=== PATIENT | male | born 1955 | race Caucasian/White ===

== ENCOUNTER 2017-03-20 08:37 | Inpatient (IN) | payer BC ==
[~2017-03-20] VITALS: Ht 177.8 cm; Wt 122.6 kg
[~2017-03-20 08:37] MED LIST: NOR10T PO
[2017-03-20] MEDS ORDERED: SODIUM CHLORIDE 0.9% 1,000 ML IVB ONE (09:09)
[2017-03-20] MEDS ORDERED: ONDANSETRON HCL 4 MG/2 ML VIAL IV ONE (09:15)
[2017-03-20] MEDS ORDERED: HYDROmorphone HCL 2 MG/ML VL IV ONE (09:15)
[2017-03-20 09:32] LABS: Basophils # (auto) 0.1 uL; Basophils % (auto) 0.4 % (0.0-2.0); Eosinophils # (auto) 0.2 uL; Eosinophils % (auto) 1.3 % (0.0-7.0); Hemoglobin 15.5 g/dL (13.5-17.5); Lymphocytes # (auto) 3.5 uL; Lymphocytes % (auto) 19.6 % (10.0-50.0); Mean Corpuscular Hemoglobin 30.8 pg (28.0-32.0); Mean Corpuscular Hgb Conc. 33.6 g/dL (32.0-36.0); Mean Corpuscular Volume 91.7 fL (80.0-100.0); Mean Platelet Volume 8.3 fL (7.4-10.4); Monocytes # (auto) 0.9 uL; Monocytes % (auto) 5.3 % (0.0-12.0); Neutrophils # (auto) 13.1 uL; Neutrophils % (auto) 73.4 % (37.0-80.0); Platelet Count (auto) 246 10^3/uL (140-450); Red Cell Distribution Width 12.5 % (11.6-16.0); White Blood Cell 17.8 10^3/uL (4.4-10.8)
[2017-03-20 09:54] LABS: Albumin 3.7 g/dL (3.4-5.0); BUN/Creatinine Ratio 15.8; Calcium 9.4 mg/dL (8.5-10.1)
[2017-03-20 09:56] LABS: Bilirubin, Total 0.6 mg/dL (0.2-1.0)
[2017-03-20 09:57] LABS: Total Protein 7.9 g/dL (6.4-8.2)
[2017-03-20] MEDS ORDERED: HYDROcodone-ACET 5/325MG TAB PO PRN (10:30)
[2017-03-20] MEDS ORDERED: ACETAMINOPHEN 500 MG TAB PO PRN (10:30)
[2017-03-20] MEDS ORDERED: TEMAZEPAM 15 MG CAP PO PRN (10:30)
[2017-03-20] MEDS ORDERED: MORPHINE SULF INJ 2 MG/ML SYRINGE 1ML IV PRN ×2 (10:30)
[2017-03-20] MEDS ORDERED: cefTRIAXone 1GM/50ML D5W 50 ML IV ONE (10:30)
[2017-03-20] MEDS ORDERED: DEXTROSE (50%) 50ML SYRG IV PRN (10:30)
[2017-03-20] MEDS ORDERED: PROCHLORPERAZINE EDISYLATE 5 MG/ML 2ML VIAL IV PRN (10:30)
[2017-03-20] MEDS ORDERED: NITROGLYCERIN 0.4 MG SL TAB SL PRN (10:30)
[2017-03-20] MEDS ORDERED: LORazepam 0.5 MG TAB PO PRN (10:30)
[2017-03-20 10:34] LABS: Urine Bilirubin Negative (Negative); Urine Color Red (Yellow); Urine Ketone Negative (Negative); Urine Nitrite Negative (Negative); Urine RBC 7599 /hpf (0 - 3); Urine Urobilinogen Normal (Negative); Urine pH 7.5 (5.0-8.0)
[2017-03-20 10:42] LABS: Urine Blood 3+ /uL (Negative); Urine Glucose 4+ mg/dL (Normal)
[2017-03-20] MEDS: SODIUM CHLORIDE 0.9% 1,000 ML IV SCH ×2 (11:36→18:20)
[2017-03-20] MEDS: FAMOTIDINE (10MG/ML) 2ML VL IV SCH ×2 (11:36→22:15)
[2017-03-20] MEDS: ACCU-CHEK COMFORT CURVE STRIP VI SCH ×3 (11:38→21:36)
[2017-03-20] MEDS: InsuLIN REG 1unit/0.01ml Soln (100units/ml) SC SCH ×3 (12:05→21:36)
[2017-03-20 13:19] LABS: Hematocrit 42.1 % (41.0-53.0); Hemoglobin 14.6 g/dL (13.5-17.5)
[2017-03-20] MEDS ORDERED: METF-312 PO (15:26)
[2017-03-20] MEDS: HYDROmorphone HCL 2 MG/ML VL IV PRN ×2 (15:45→20:34)
[2017-03-20 17:20] VITALS: BP 130/73
[2017-03-20 18:43] LABS: Hematocrit 42.8 % (41.0-53.0); Hemoglobin 14.3 g/dL (13.5-17.5)
[2017-03-20 21:30] VITALS: BP 124/73
[2017-03-21] MEDS: HYDROmorphone HCL 2 MG/ML VL IV PRN ×6 (00:23→21:07)
[2017-03-21 00:57] LABS: Hematocrit 42.7 % (41.0-53.0); Hemoglobin 14.2 g/dL (13.5-17.5)
[2017-03-21] MEDS: SODIUM CHLORIDE 0.9% 1,000 ML IV SCH ×3 (04:24→18:34)
[2017-03-21 05:00] VITALS: BP 149/94
[2017-03-21 06:06] LABS: Basophils # (auto) 0 uL; Basophils % (auto) 0.2 % (0.0-2.0); Eosinophils # (auto) 0.3 uL; Eosinophils % (auto) 1.6 % (0.0-7.0); Hematocrit 41.9 % (41.0-53.0); Hemoglobin 14.3 g/dL (13.5-17.5); Lymphocytes # (auto) 3.2 uL; Lymphocytes % (auto) 18.5 % (10.0-50.0); Mean Corpuscular Hemoglobin 31.3 pg (28.0-32.0); Mean Platelet Volume 8.6 fL (7.4-10.4); Monocytes % (auto) 6.1 % (0.0-12.0); Neutrophils # (auto) 12.6 uL; Neutrophils % (auto) 73.6 % (37.0-80.0); Platelet Count (auto) 224 10^3/uL (140-450); Red Cell Distribution Width 12.8 % (11.6-16.0); White Blood Cell 17.1 10^3/uL (4.4-10.8)
[2017-03-21 06:26] LABS: Calcium 8.6 mg/dL (8.5-10.1); Potassium 3.7 mmol/L (3.5-5.1)
[2017-03-21 06:40] LABS: BUN/Creatinine Ratio 17.1
[2017-03-21 06:42] LABS: Bilirubin, Total 0.8 mg/dL (0.2-1.0); Total Protein 6.9 g/dL (6.4-8.2)
[2017-03-21] MEDS: InsuLIN REG 1unit/0.01ml Soln (100units/ml) SC SCH ×4 (06:50→21:24)
[2017-03-21] MEDS: ACCU-CHEK COMFORT CURVE STRIP VI SCH ×4 (06:50→21:24)
[2017-03-21 08:00] VITALS: BP 132/87
[2017-03-21 09:00] VITALS: BP 132/87
[2017-03-21] MEDS: cefTRIAXone 1GM/50ML D5W 50 ML IV SCH (09:11)
[2017-03-21] MEDS: FAMOTIDINE (10MG/ML) 2ML VL IV SCH (09:11)
[2017-03-21 13:00] VITALS: BP 138/89
[2017-03-21 17:00] VITALS: BP 135/82
[2017-03-21] MEDS ORDERED: TAMSULOSIN HYDROCHLORIDE 0.4 MG CAP PO SCH (18:00)
[2017-03-21 22:00] VITALS: BP 133/76
[2017-03-22] MEDS: HYDROmorphone HCL 2 MG/ML VL IV PRN ×2 (01:06→05:24)
[2017-03-22] MEDS ORDERED: INSLANTI SC (03:21)
[2017-03-22] MEDS: SODIUM CHLORIDE 0.9% 1,000 ML IV SCH (04:46)
[2017-03-22 05:00] VITALS: BP 125/79
[2017-03-22] MEDS: ACCU-CHEK COMFORT CURVE STRIP VI SCH (05:53)
[2017-03-22] MEDS: InsuLIN REG 1unit/0.01ml Soln (100units/ml) SC SCH (05:54)
[2017-03-22 06:40] LABS: Basophils # (auto) 0.1 uL; Basophils % (auto) 0.4 % (0.0-2.0); Eosinophils # (auto) 0.4 uL; Hematocrit 39.5 % (41.0-53.0); Hemoglobin 13.4 g/dL (13.5-17.5); Lymphocytes # (auto) 3.1 uL; Lymphocytes % (auto) 21.1 % (10.0-50.0); Mean Corpuscular Hemoglobin 31.2 pg (28.0-32.0); Mean Corpuscular Volume 91.7 fL (80.0-100.0); Mean Platelet Volume 8.4 fL (7.4-10.4); Monocytes % (auto) 6.9 % (0.0-12.0); Neutrophils # (auto) 10.1 uL; Neutrophils % (auto) 68.6 % (37.0-80.0); Platelet Count (auto) 213 10^3/uL (140-450); Red Cell Distribution Width 12.3 % (11.6-16.0); White Blood Cell 14.8 10^3/uL (4.4-10.8)
[2017-03-22 06:59] LABS: BUN/Creatinine Ratio 15.9; Calcium 7.8 mg/dL (8.5-10.1); Potassium 3.6 mmol/L (3.5-5.1)
[2017-03-22 08:00] VITALS: BP 139/101
[2017-03-22] MEDS ORDERED: TAM04C PO (08:03)
[2017-03-22] MEDS ORDERED: MAGNESIUM CITRATE SOLUTION 300 ML BTL PO ONE (08:15)
[2017-03-22 09:00] VITALS: BP 139/101
[2017-03-22] MEDS: cefTRIAXone 1GM/50ML D5W 50 ML IV SCH (09:00)
[2017-03-22] MEDS ORDERED: HYDROcodone-ACET 10/325MG TAB PO PRN (09:30)
[2017-03-22] MEDS ORDERED: CIPR-173 PO (10:40)
[2017-03-22 11:41] VITALS: BP 139/101
== END 2017-03-22 12:40 | disposition home or self-care (01) | DRG 690 ==
LOC: ER 08:40 → TELE 08:41 → TELE-E-ADS 15:02 → TELE-WESTW 17:16 → WEST WING 03-21 15:12
PROVIDERS: ADMIT Internal Medicine; ATTEND Internal Medicine
DX: N30.91 Cystitis, unspecified with hematuria (principal); M48.56XA Collapsed vertebra, not elsewhere classified, lumbar region, initial encounter for fracture; N20.0 Calculus of kidney; E11.9 Type 2 diabetes mellitus without complications; I10 Essential (primary) hypertension; G47.30 Sleep apnea, unspecified; E66.9 Obesity, unspecified; B96.20 Unspecified Escherichia coli [E. coli] as the cause of diseases classified elsewhere; E66.01 Morbid (severe) obesity due to excess calories; K76.0 Fatty (change of) liver, not elsewhere classified; M51.37 Other intervertebral disc degeneration, lumbosacral region; Z83.3 Family history of diabetes mellitus; Z86.73 Personal history of transient ischemic attack (TIA), and cerebral infarction without residual deficits; Z90.49 Acquired absence of other specified parts of digestive tract; Z68.38 Body mass index [BMI] 38.0-38.9, adult
CPT/HCPCS: 36415; 51702; 71020; 74176; 76775; 80048; 80053; 81001; 82360; 82962; 83036; 85014; 85018; 85025; 87040; 87086; 87088; 87186; 94761; 96361; 96365; 96375; J0696; J1815; J2405; J3490

== ENCOUNTER → 2017-08-05 | Outpatient (CLI) | payer BC ==
[~2017-08-05] MED LIST changes: +CIPR-173 PO; +INSLANTI SC; +METF-370 PO; +TAM04C PO
[2017-08-05 11:44] LABS: Basophils # (auto) 0 uL; Basophils % (auto) 0.3 % (0.0-2.0); CONDITION Y; Eosinophils # (auto) 0.3 uL; Eosinophils % (auto) 2.3 % (0.0-7.0); Hematocrit 47.8 % (41.0-53.0); Hemoglobin 16.2 g/dL (13.5-17.5); Lymphocytes # (auto) 3.4 uL; Lymphocytes % (auto) 22.7 % (10.0-50.0); Mean Corpuscular Hemoglobin 31.1 pg (28.0-32.0); Mean Corpuscular Hgb Conc. 33.9 g/dL (32.0-36.0); Mean Corpuscular Volume 91.8 fL (80.0-100.0); Mean Platelet Volume 8.2 fL (7.4-10.4); Monocytes % (auto) 6.4 % (0.0-12.0); Neutrophils # (auto) 10.2 uL; Neutrophils % (auto) 68.3 % (37.0-80.0); Platelet Count (auto) 269 10^3/uL (140-450); Red Cell Distribution Width 13.3 % (11.6-16.0); White Blood Cell 14.9 10^3/uL (4.4-10.8)
[2017-08-05 12:03] LABS: Albumin 3.7 g/dL (3.4-5.0); BUN/Creatinine Ratio 19.5; Bilirubin, Total 0.7 mg/dL (0.2-1.0); Calcium 9.4 mg/dL (8.5-10.1); Potassium 3.6 mmol/L (3.5-5.1); Total Protein 8.5 g/dL (6.4-8.2)
[2017-08-05 12:25] LABS: Urine Bilirubin Negative (Negative); Urine Blood Negative /uL (Negative); Urine Color Yellow (Yellow); Urine Glucose 4+ mg/dL (Normal); Urine Ketone Negative (Negative); Urine Mucus FEW (None Seen); Urine Nitrite Negative (Negative); Urine RBC 2 /hpf (0 - 3); Urine Squamous Epithelial Cell FEW /hpf (<5); Urine Urobilinogen Normal (Negative); Urine pH 5.5 (5.0-8.0)
== END | disposition home or self-care (01) ==
LOC: LAB 11:15
PROVIDERS: ATTEND Internal Medicine
DX: I10 Essential (primary) hypertension (principal); E55.9 Vitamin D deficiency, unspecified; E11.9 Type 2 diabetes mellitus without complications; E03.9 Hypothyroidism, unspecified; E78.2 Mixed hyperlipidemia
CPT/HCPCS: 36415; 80053; 80061; 81001; 82043; 82306; 83036; 84443; 85025

== ENCOUNTER → 2017-11-06 | Outpatient (CLI) | payer BC | END | disposition home or self-care (01) | LOC: XY 07:39 | PROVIDERS: ATTEND Internal Medicine Cardiovascular Disease | DX: R07.9 Chest pain, unspecified (principal) | CPT/HCPCS: 78452; 93017; A9500 ==

== ENCOUNTER 2017-12-31 15:40 | Emergency (ER) | payer BC ==
[~2017-12-31] VITALS: Ht 177.8 cm; Wt 127.0 kg
[2017-12-31 16:22] LABS: Basophils # (auto) 0.1 uL; Basophils % (auto) 0.5 % (0.0-2.0); Eosinophils # (auto) 0.1 uL; Eosinophils % (auto) 1.3 % (0.0-7.0); Hemoglobin 16.6 g/dL (13.5-17.5); Lymphocytes # (auto) 2.2 uL; Lymphocytes % (auto) 19.1 % (10.0-50.0); Mean Corpuscular Hemoglobin 30.3 pg (28.0-32.0); Mean Corpuscular Hgb Conc. 33.1 g/dL (32.0-36.0); Mean Corpuscular Volume 91.4 fL (80.0-100.0); Monocytes # (auto) 0.7 uL; Monocytes % (auto) 5.9 % (0.0-12.0); Neutrophils # (auto) 8.5 uL; Neutrophils % (auto) 73.2 % (37.0-80.0); Nucleated Red Blood Cells % 0.1 %; Platelet Count (auto) 234 10^3/uL (140-450); Red Blood Cells 5.47 10^6/uL (4.5-5.90); Red Cell Distribution Width 13.6 % (11.8-14.3); White Blood Cell 11.6 10^3/uL (4.4-10.8)
[2017-12-31 16:34] LABS: Alanine Aminotransferase 48 U/L (16-61); Albumin 3.8 g/dL (3.4-5.0); Amylase 66 U/L (25-115); Anion Gap 12 (5-15); Aspartate Aminotransferase 33 U/L (15-37); BUN/Creatinine Ratio 18.3; Blood Urea Nitrogen 17 mg/dL (7-18); Calcium 9.5 mg/dL (8.5-10.1); Carbon Dioxide 23 mmol/L (21-32); Chloride 105 mmol/L (98-107); GFR African American 106 mL/min; GFR Non-African American 88 mL/min; Glucose 103 mg/dL (74-106); Lipase 233 U/L (73-393); Magnesium 2.4 mg/dL (1.6-2.6); Potassium 4.1 mmol/L (3.5-5.1); Sodium 140 mmol/L (136-145)
[2017-12-31 16:39] LABS: Alkaline Phosphatase 79 U/L (45-117); Bilirubin, Total 0.8 mg/dL (0.2-1.0); Total Protein 9.1 g/dL (6.4-8.2)
[2017-12-31] MEDS ORDERED: MAGNESIUM CITRATE SOLUTION 300 ML BTL PO ONE (19:30)
[2017-12-31] MEDS ORDERED: LACTULOSE 20Gm/30ML SOLN PO ONE (19:30)
[2017-12-31] MEDS ORDERED: SODIUM CHLORIDE 0.9% 1,000 ML IV ONE (19:30)
[2018-01-01 04:35] VITALS: BP 136/70
== END 2018-01-01 02:37 | disposition home or self-care (01) ==
LOC: ER 15:48
DX: K59.00 Constipation, unspecified (principal); E11.9 Type 2 diabetes mellitus without complications; I10 Essential (primary) hypertension; Z87.442 Personal history of urinary calculi; Z86.73 Personal history of transient ischemic attack (TIA), and cerebral infarction without residual deficits
CPT/HCPCS: 36415; 74176; 80053; 82150; 83690; 83735; 84484; 85025; 93005; 96360; 96361; 99285; J7030

== ENCOUNTER 2018-03-10 17:25 | Inpatient (IN) | payer BC ==
[~2018-03-10] VITALS: Ht 177.8 cm; Wt 135.0 kg
[2018-03-10] MEDS ORDERED: SODIUM CHLORIDE 0.9% 1,000 ML IVB ONE (18:06)
[2018-03-10] MEDS ORDERED: KETOROLAC TROMETH 30 MG/ML 1ML VIAL IV ONE (18:15)
[2018-03-10] MEDS ORDERED: MORPHINE SULFATE 4 MG/ML SYR/VIAL IV ONE (18:15)
[2018-03-10] MEDS ORDERED: ONDANSETRON HCL 4 MG/2 ML VIAL IV ONE (18:15)
[2018-03-10 19:20] LABS: Basophils # (auto) 0 uL; Basophils % (auto) 0.3 % (0.0-2.0); Eosinophils # (auto) 0.1 uL; Eosinophils % (auto) 0.5 % (0.0-7.0); Hematocrit 49.2 % (41.0-53.0); Hemoglobin 16.5 g/dL (13.5-17.5); Lymphocytes # (auto) 1.5 uL; Lymphocytes % (auto) 9.6 % (10.0-50.0); Mean Corpuscular Hemoglobin 30.2 pg (28.0-32.0); Mean Corpuscular Hgb Conc. 33.5 g/dL (32.0-36.0); Mean Corpuscular Volume 90.1 fL (80.0-100.0); Monocytes # (auto) 0.8 uL; Neutrophils % (auto) 84.6 % (37.0-80.0); Platelet Count (auto) 234 10^3/uL (140-450); Red Blood Cells 5.46 10^6/uL (4.5-5.90); Red Cell Distribution Width 13.3 % (11.8-14.3); White Blood Cell 15.4 10^3/uL (4.4-10.8)
[2018-03-10 19:34] LABS: Albumin 3.9 g/dL (3.4-5.0); BUN/Creatinine Ratio 16.1; Bilirubin, Total 0.8 mg/dL (0.2-1.0); Calcium 9.4 mg/dL (8.5-10.1); Potassium 3.7 mmol/L (3.5-5.1); Total Protein 9.3 g/dL (6.4-8.2)
[2018-03-10 21:28] LABS: Urine Bacteria MANY /hpf (None Seen); Urine Blood 2+ /uL (Negative); Urine Mucus FEW (None Seen); Urine Specific Gravity 1.031 (1.001-1.035); Urine WBC 57 /hpf (0 - 3)
[2018-03-10] MEDS ORDERED: MORPHINE SULFATE 4 MG/ML SYR/VIAL IV PRN (22:00)
[2018-03-10] MEDS ORDERED: HYDROcodone-ACET 5/325MG TAB PO PRN (22:00)
[2018-03-10] MEDS ORDERED: ACETAMINOPHEN 500 MG TAB PO PRN (22:00)
[2018-03-10] MEDS: cefTRIAXone 1GM/10ml IVPUSH 10 ML IV SCH (22:28)
[2018-03-10] MEDS ORDERED: HYDROcodone-ACET 10/325MG TAB PO ONE (23:30)
[2018-03-11] MEDS ORDERED: MEPERIDINE HCL (25 MG/ML) 1ML VIAL IV ONE (01:15)
[2018-03-11] MEDS ORDERED: DEXTROSE (50%) 50ML SYRG IV PRN (01:45)
[2018-03-11] MEDS ORDERED: ZOLPIDEM TARTRATE 5 MG TAB PO PRN (02:00)
[2018-03-11] MEDS ORDERED: LABETALOL HCL 5 MG/ML ML 20ML VIAL IV ONE ×2 (02:54→03:00)
[2018-03-11 04:16] LABS: Basophils # (auto) 0.1 uL; Basophils % (auto) 0.5 % (0.0-2.0); Eosinophils # (auto) 0.1 uL; Eosinophils % (auto) 0.8 % (0.0-7.0); Hemoglobin 15.8 g/dL (13.5-17.5); Lymphocytes # (auto) 3.2 uL; Lymphocytes % (auto) 18.5 % (10.0-50.0); Mean Corpuscular Hemoglobin 30.7 pg (28.0-32.0); Mean Corpuscular Hgb Conc. 33.6 g/dL (32.0-36.0); Mean Corpuscular Volume 91.5 fL (80.0-100.0); Monocytes # (auto) 1.5 uL; Monocytes % (auto) 8.9 % (0.0-12.0); Neutrophils # (auto) 12.3 uL; Neutrophils % (auto) 71.3 % (37.0-80.0); Platelet Count (auto) 221 10^3/uL (140-450); Red Blood Cells 5.14 10^6/uL (4.5-5.90); Red Cell Distribution Width 13.4 % (11.8-14.3); White Blood Cell 17.2 10^3/uL (4.4-10.8)
[2018-03-11 04:34] LABS: BUN/Creatinine Ratio 16.4; Potassium 3.9 mmol/L (3.5-5.1)
[2018-03-11] MEDS ORDERED: KETOROLAC TROMETH 30 MG/ML 1ML VIAL ONE (07:04)
[2018-03-11] MEDS ORDERED: KETOROLAC TROMETH 30 MG/ML 1ML VIAL IV ONE (07:15)
[2018-03-11] MEDS: InsuLIN REG 1unit/0.01ml Soln (100units/ml) SC SCH ×4 (07:56→23:29)
[2018-03-11] MEDS: ACCU-CHEK COMFORT CURVE STRIP VI SCH ×4 (07:56→23:30)
[2018-03-11] MEDS: cefTRIAXone 1GM/10ml IVPUSH 10 ML IV SCH (09:00)
[2018-03-11] MEDS: LISINOPRIL 20 MG TAB PO SCH (11:00)
[2018-03-11 11:02] VITALS: BP 143/84
[2018-03-11] MEDS ORDERED: LISI40TA PO (12:11)
[2018-03-11 13:00] VITALS: BP 143/84
[2018-03-11] MEDS: ONDANSETRON HCL 4 MG/2 ML VIAL IV PRN ×2 (13:53→20:06)
[2018-03-11] MEDS: KETOROLAC TROMETH 30 MG/ML 1ML VIAL IV PRN ×2 (13:53→22:08)
[2018-03-11 17:00] VITALS: BP 158/86
[2018-03-11] MEDS ORDERED: MANNITOL 20 % (20GM/100ML) 62.5 ML IV ONE (17:00)
[2018-03-11] MEDS: TAMSULOSIN HYDROCHLORIDE 0.4 MG CAP PO SCH (18:00)
[2018-03-11] MEDS: MORPHINE SULFATE 8mg/ml INJ SDV IV PRN (19:00)
[2018-03-11] MEDS: ATORVASTATIN 20 MG TAB PO SCH (22:08)
[2018-03-11 22:22] VITALS: BP 158/86
[2018-03-11 23:21] VITALS: BP 167/100
[2018-03-12] MEDS ORDERED: NALBUPHINE HCL 10 MG/1ml INJECTION IV ONE (01:15)
[2018-03-12 05:58] VITALS: BP 164/88
[2018-03-12 06:45] LABS: INR 1.02 (0.9-1.15); Partial Thromboplastin Time 29.6 sec (22.64-33.71); Prothrombin Time 11.1 sec (9.37-12.3)
[2018-03-12] MEDS: KETOROLAC TROMETH 30 MG/ML 1ML VIAL IV PRN ×2 (07:00→23:14)
[2018-03-12] MEDS: ONDANSETRON HCL 4 MG/2 ML VIAL IV PRN ×2 (07:00→23:13)
[2018-03-12] MEDS: InsuLIN REG 1unit/0.01ml Soln (100units/ml) SC SCH ×4 (07:01→23:14)
[2018-03-12] MEDS: ACCU-CHEK COMFORT CURVE STRIP VI SCH ×4 (07:02→22:00)
[2018-03-12 09:00] VITALS: BP 153/85
[2018-03-12] MEDS ORDERED: ceFAZolin 1GM/50ML 50 ML IV ONE (09:40)
[2018-03-12] MEDS ORDERED: fentaNYL CITRATE 100 MCG/2 ML VL ONE ×3 (09:49→10:15)
[2018-03-12] MEDS ORDERED: GLYCOPYRROLATE 0.2 MG/ML 1ML VIAL IV ONE (09:50)
[2018-03-12] MEDS ORDERED: ROCURONIUM 10MG/ML 10ML VIAL IV ONE (09:50)
[2018-03-12] MEDS ORDERED: PROPOFOL 10 MG/ML 20 ML IV ONE (09:50)
[2018-03-12] MEDS ORDERED: NEOSTIGMINE 1 MG/ML INJ (10mg/10ML VIAL) IV ONE (09:50)
[2018-03-12] MEDS ORDERED: MORPHINE SULFATE INJECTION 1 ML ONE (11:04)
[2018-03-12] MEDS: MORPHINE SULFATE 4 MG/ML SYR/VIAL IV PRN ×2 (11:07→11:25)
[2018-03-12] MEDS ORDERED: ONDANSETRON HCL 4 MG/2 ML VIAL IV ONE (11:15)
[2018-03-12] MEDS ORDERED: LEVOFLOXACIN 500MG 100 ML IV ONE (12:00)
[2018-03-12] MEDS ORDERED: hydrALAZINE HCL 20 MG/ML VL IV PRN (12:15)
[2018-03-12] MEDS ORDERED: ePHEDrine SULFATE 50 MG/ML AMP IV PRN (12:15)
[2018-03-12 13:00] VITALS: BP 142/84
[2018-03-12] MEDS: cefTRIAXone 1GM/10ml IVPUSH 10 ML IV SCH (13:59)
[2018-03-12] MEDS: LISINOPRIL 20 MG TAB PO SCH (14:00)
[2018-03-12 17:00] VITALS: BP 154/87
[2018-03-12] MEDS: TAMSULOSIN HYDROCHLORIDE 0.4 MG CAP PO SCH (18:00)
[2018-03-12 20:00] VITALS: BP 148/96
[2018-03-12 22:00] VITALS: BP 148/90
[2018-03-12] MEDS: ATORVASTATIN 20 MG TAB PO SCH (23:14)
[2018-03-13] MEDS ORDERED: CALCIUM CARB 500 MG CHEW TAB PO ONE (03:00)
[2018-03-13 05:00] VITALS: BP 141/76
[2018-03-13] MEDS: InsuLIN REG 1unit/0.01ml Soln (100units/ml) SC SCH ×3 (06:24→17:00)
[2018-03-13] MEDS: ACCU-CHEK COMFORT CURVE STRIP VI SCH ×3 (06:24→17:00)
[2018-03-13 06:51] LABS: Basophils # (auto) 0.1 uL; Basophils % (auto) 0.5 % (0.0-2.0); Eosinophils # (auto) 0.2 uL; Eosinophils % (auto) 1.6 % (0.0-7.0); Hematocrit 40.5 % (41.0-53.0); Lymphocytes # (auto) 1.7 uL; Lymphocytes % (auto) 13.7 % (10.0-50.0); Mean Corpuscular Hemoglobin 31.2 pg (28.0-32.0); Mean Corpuscular Hgb Conc. 34.5 g/dL (32.0-36.0); Mean Corpuscular Volume 90.2 fL (80.0-100.0); Monocytes % (auto) 8.3 % (0.0-12.0); Neutrophils # (auto) 9.6 uL; Neutrophils % (auto) 75.9 % (37.0-80.0); Nucleated Red Blood Cells % 0.1 %; Platelet Count (auto) 184 10^3/uL (140-450); Red Blood Cells 4.48 10^6/uL (4.5-5.90); Red Cell Distribution Width 12.8 % (11.8-14.3); White Blood Cell 12.6 10^3/uL (4.4-10.8)
[2018-03-13 07:09] LABS: Albumin 2.9 g/dL (3.4-5.0); Bilirubin, Total 0.8 mg/dL (0.2-1.0); Calcium 8.4 mg/dL (8.5-10.1); Potassium 3.9 mmol/L (3.5-5.1); Total Protein 7.4 g/dL (6.4-8.2)
[2018-03-13 09:30] VITALS: BP 159/94
[2018-03-13] MEDS ORDERED: MORPHINE SULFATE 8mg/ml INJ SDV IM SCH (10:00)
[2018-03-13] MEDS ORDERED: LEVOFLOXACIN 500MG 100 ML IV SCH (10:00)
[2018-03-13] MEDS: cefTRIAXone 1GM/10ml IVPUSH 10 ML IV SCH (10:29)
[2018-03-13] MEDS: LISINOPRIL 20 MG TAB PO SCH (10:31)
[2018-03-13] MEDS: MORPHINE SULFATE 8mg/ml INJ SDV IV PRN ×2 (10:35→14:50)
[2018-03-13 14:09] VITALS: BP 149/100
[2018-03-13 14:35] VITALS: BP 149/100
[2018-03-13 17:34] VITALS: BP 145/85
[2018-03-13] MEDS: TAMSULOSIN HYDROCHLORIDE 0.4 MG CAP PO SCH (18:00)
== END 2018-03-13 21:00 | disposition home or self-care (01) | DRG 694 ==
LOC: ER 17:27 → OVERFLOW 17:28 → WEST WING 03-11 08:27
PROVIDERS: ADMIT Nurse Practitioner Family; ATTEND Family Medicine
PROC: 5A09357 Assistance with Respiratory Ventilation, Less than 24 Consecutive Hours, Continuous Positive Airway Pressure (ICD-10-PCS; 2018-03-11)
PROC: 0T768DZ Dilation of Right Ureter with Intraluminal Device, Via Natural or Artificial Opening Endoscopic (ICD-10-PCS; principal; 2018-03-12)
DX: N20.2 Calculus of kidney with calculus of ureter (principal); E11.65 Type 2 diabetes mellitus with hyperglycemia; I11.9 Hypertensive heart disease without heart failure; N39.0 Urinary tract infection, site not specified; Z68.41 Body mass index [BMI] 40.0-44.9, adult; N21.0 Calculus in bladder; E66.9 Obesity, unspecified; G47.00 Insomnia, unspecified; E78.5 Hyperlipidemia, unspecified; E78.00 Pure hypercholesterolemia, unspecified; Z79.4 Long term (current) use of insulin; Z80.0 Family history of malignant neoplasm of digestive organs; Z83.3 Family history of diabetes mellitus; Z86.73 Personal history of transient ischemic attack (TIA), and cerebral infarction without residual deficits; Z79.84 Long term (current) use of oral hypoglycemic drugs; Z90.49 Acquired absence of other specified parts of digestive tract; Z79.899 Other long term (current) drug therapy
CPT/HCPCS: 36415; 71045; 74018; 74176; 76000; 80048; 80053; 81001; 82150; 82962; 83036; 83690; 85025; 85610; 85730; 87086; 94660; 94761; 96361; 96374; 96375; J0690; J1815; J1885; J1956; J2270; J2405; J2704

== ENCOUNTER 2018-05-05 06:03 | Day surgery (SDC) | payer BC ==
[2018-05-01 14:46] LABS: Basophils # (auto) 0.1 uL; Basophils % (auto) 0.6 % (0.0-2.0); Eosinophils # (auto) 0.4 uL; Eosinophils % (auto) 3.4 % (0.0-7.0); Hemoglobin 14.9 g/dL (13.5-17.5); Lymphocytes # (auto) 3.4 uL; Mean Corpuscular Hemoglobin 30.6 pg (28.0-32.0); Mean Corpuscular Hgb Conc. 33.9 g/dL (32.0-36.0); Mean Corpuscular Volume 90.3 fL (80.0-100.0); Monocytes # (auto) 0.8 uL; Monocytes % (auto) 6.9 % (0.0-12.0); Neutrophils % (auto) 60.1 % (37.0-80.0); Nucleated Red Blood Cells % 0.1 %; Platelet Count (auto) 253 10^3/uL (140-450); Red Blood Cells 4.87 10^6/uL (4.5-5.90); Red Cell Distribution Width 13.1 % (11.8-14.3); White Blood Cell 11.6 10^3/uL (4.4-10.8)
[2018-05-01 14:54] LABS: Urine Bacteria FEW /hpf (None Seen); Urine Blood 3+ /uL (Negative); Urine Mucus FEW (None Seen); Urine WBC 15 /hpf (0 - 3)
[2018-05-01 15:02] LABS: Albumin 3.5 g/dL (3.4-5.0); Calcium 9.7 mg/dL (8.5-10.1); Potassium 3.6 mmol/L (3.5-5.1)
[2018-05-01 15:04] LABS: BUN/Creatinine Ratio 16.5; Total Protein 8.5 g/dL (6.4-8.2)
[2018-05-01 15:06] LABS: Bilirubin, Total 0.8 mg/dL (0.2-1.0)
[~2018-05-05] VITALS: Ht 177.8 cm; Wt 113.4 kg
[~2018-05-05 06:03] MED LIST changes: +ASPI81TA27 PO; +ATOR40TA52 PO; -CIPR-173 PO; +EMPA1TAB3 PO; +GABA800T97 PO; +GLIP-116 PO; +HYDR25TA4 PO; -INSLANTI SC; +LEVEMIR SC; +LISI40TA PO; +SITA50TA PO; -TAM04C PO; +TRIA0.25 PO
[2018-05-05] MEDS ORDERED: ceFAZolin 1GM/100ML 100 ML IV ONE (07:05)
[2018-05-05] MEDS ORDERED: fentaNYL CITRATE 100 MCG/2 ML VL ONE (07:27)
[2018-05-05] MEDS ORDERED: SUCCINYLCHOLINE CHLORIDE 20 MG/ML 10ML VIAL IV ONE (07:28)
[2018-05-05] MEDS ORDERED: PROPOFOL 10 MG/ML 20 ML IV ONE (08:23)
[2018-05-05] MEDS ORDERED: ePHEDrine SULFATE 50 MG/ML AMP IV PRN (08:30)
[2018-05-05] MEDS ORDERED: ONDANSETRON HCL 4 MG/2 ML VIAL IV ONE (08:30)
[2018-05-05] MEDS ORDERED: hydrALAZINE HCL 20 MG/ML VL IV PRN (08:30)
[2018-05-05] MEDS ORDERED: fentaNYL CITRATE 100 MCG/2 ML VL IV ONE (09:00)
[2018-05-05 09:25] VITALS: BP 134/78
== END 2018-05-05 09:25 | disposition home or self-care (01) ==
LOC: SUR 06:03
PROVIDERS: ATTEND Urology
DX: N20.0 Calculus of kidney (principal); G47.30 Sleep apnea, unspecified; E11.9 Type 2 diabetes mellitus without complications; I10 Essential (primary) hypertension; Z90.49 Acquired absence of other specified parts of digestive tract; Z79.84 Long term (current) use of oral hypoglycemic drugs; Z79.891 Long term (current) use of opiate analgesic; Z79.899 Other long term (current) drug therapy; Z86.73 Personal history of transient ischemic attack (TIA), and cerebral infarction without residual deficits; E66.9 Obesity, unspecified; Z68.35 Body mass index [BMI] 35.0-35.9, adult
CPT/HCPCS: 36415; 50590; 52310; 80053; 81001; 82962; 85025; 85730; J0330; J0690; J2704; J3010; J7030

== ENCOUNTER → 2018-08-26 | Outpatient (CLI) | payer BC ==
[2018-08-26 12:44] LABS: Basophils # (auto) 0.1 uL; Basophils % (auto) 0.6 % (0.0-2.0); Eosinophils # (auto) 0.3 uL; Eosinophils % (auto) 3.1 % (0.0-7.0); Hematocrit 42.9 % (41.0-53.0); Hemoglobin 14.8 g/dL (13.5-17.5); Lymphocytes # (auto) 2.9 uL; Lymphocytes % (auto) 26.7 % (10.0-50.0); Mean Corpuscular Hemoglobin 30.9 pg (28.0-32.0); Mean Corpuscular Hgb Conc. 34.5 g/dL (32.0-36.0); Mean Corpuscular Volume 89.6 fL (80.0-100.0); Monocytes # (auto) 0.7 uL; Monocytes % (auto) 6.2 % (0.0-12.0); Neutrophils # (auto) 6.9 uL; Neutrophils % (auto) 63.4 % (37.0-80.0); Platelet Count (auto) 229 10^3/uL (140-450); Red Blood Cells 4.79 10^6/uL (4.5-5.90)
[2018-08-26 13:30] LABS: Albumin 3.5 g/dL (3.4-5.0); BUN/Creatinine Ratio 18.9; Bilirubin, Total 0.6 mg/dL (0.2-1.0); Calcium 8.8 mg/dL (8.5-10.1); Potassium 3.9 mmol/L (3.5-5.1); Total Protein 8.4 g/dL (6.4-8.2)
== END | disposition home or self-care (01) ==
LOC: LAB 11:07
PROVIDERS: ATTEND Physician Assistant
DX: Z12.5 Encounter for screening for malignant neoplasm of prostate (principal); N20.0 Calculus of kidney; I10 Essential (primary) hypertension; E11.65 Type 2 diabetes mellitus with hyperglycemia; E11.29 Type 2 diabetes mellitus with other diabetic kidney complication; E78.2 Mixed hyperlipidemia
CPT/HCPCS: 36415; 80053; 80061; 83036; 84153; 85025

== ENCOUNTER → 2019-05-21 | Outpatient (CLI) | payer BC ==
[2019-05-21 13:07] LABS: Basophils # (auto) 0.1 uL; Basophils % (auto) 0.6 % (0.0-2.0); Eosinophils # (auto) 0.3 uL; Eosinophils % (auto) 2.5 % (0.0-7.0); Hematocrit 47.7 % (41.0-53.0); Hemoglobin 16.1 g/dL (13.5-17.5); Lymphocytes # (auto) 2.9 uL; Mean Corpuscular Hemoglobin 31.1 pg (28.0-32.0); Mean Corpuscular Hgb Conc. 33.9 g/dL (32.0-36.0); Mean Corpuscular Volume 91.8 fL (80.0-100.0); Monocytes # (auto) 0.7 uL; Monocytes % (auto) 6.4 % (0.0-12.0); Neutrophils # (auto) 7.3 uL; Neutrophils % (auto) 64.5 % (37.0-80.0); Platelet Count (auto) 206 10^3/uL (140-450); Red Blood Cells 5.19 10^6/uL (4.5-5.90); Red Cell Distribution Width 12.9 % (11.8-14.3); White Blood Cell 11.4 10^3/uL (4.4-10.8)
[2019-05-21 13:22] LABS: Albumin 3.7 g/dL (3.4-5.0); Calcium 9.2 mg/dL (8.5-10.1)
[2019-05-21 14:01] LABS: Bilirubin, Total 0.9 mg/dL (0.2-1.0); Total Protein 8.3 g/dL (6.4-8.2)
[2019-05-21 15:40] LABS: Urine Bacteria NONE SEEN /hpf (None Seen); Urine Blood Negative /uL (Negative); Urine Mucus FEW (None Seen); Urine Specific Gravity 1.028 (1.001-1.035); Urine WBC 3 /hpf (0 - 3)
== END | disposition home or self-care (01) ==
LOC: LAB 11:35
PROVIDERS: ATTEND Physician Assistant
DX: Z12.5 Encounter for screening for malignant neoplasm of prostate (principal); E11.29 Type 2 diabetes mellitus with other diabetic kidney complication; E78.2 Mixed hyperlipidemia; I63.9 Cerebral infarction, unspecified; G62.9 Polyneuropathy, unspecified
CPT/HCPCS: 36415; 80053; 80061; 81001; 83036; 84153; 85025

== ENCOUNTER → 2019-09-08 | Outpatient (CLI) | payer BC ==
[~2019-09-08] MED LIST changes: +ASPI-404 PO; -ASPI81TA27 PO; -GLIP-116 PO; +GLIP10TA9 PO
[2019-09-08 11:31] LABS: Albumin 3.6 g/dL (3.4-5.0); Calcium 9.3 mg/dL (8.5-10.1); Potassium 3.7 mmol/L (3.5-5.1)
[2019-09-08 11:36] LABS: BUN/Creatinine Ratio 22.8; Bilirubin, Total 0.6 mg/dL (0.2-1.0); Total Protein 8.3 g/dL (6.4-8.2)
== END | disposition home or self-care (01) ==
LOC: LAB 10:30
DX: E11.65 Type 2 diabetes mellitus with hyperglycemia (principal)
CPT/HCPCS: 36415; 80053; 82043; 82570; 83036

== ENCOUNTER → 2020-07-27 | Outpatient (CLI) | payer BC ==
[~2020-07-27] MED LIST changes: -ASPI-404 PO; +ASPI-543 PO; -LISI40TA PO; +LISI40TA11 PO
[2020-07-27 14:57] LABS: Ferritin 140.6 ng/mL (10-322)
[2020-07-27 14:58] LABS: Folate (Folic Acid) 23.03 ng/mL (5.38-24)
[2020-07-27 15:39] LABS: % Iron Saturation 31.1 % (20-55)
== END | disposition home or self-care (01) ==
LOC: LAB 13:36
PROVIDERS: ATTEND Internal Medicine
DX: E61.1 Iron deficiency (principal); G62.9 Polyneuropathy, unspecified
CPT/HCPCS: 36415; 82607; 82728; 82746; 83540; 83550; 84155; 84165; 84443

== ENCOUNTER 2020-10-17 15:52 | Inpatient (IN) | payer BC ==
[~2020-10-17] VITALS: Ht 177.8 cm; Wt 132.8 kg
[~2020-10-17 15:52] MED LIST changes: -EMPA1TAB3 PO
[2020-10-17] MEDS ORDERED: SODIUM CHLORIDE 0.9% 1,000 ML IV ONE ×2 (16:30→18:30)
[2020-10-17] MEDS ORDERED: ONDANSETRON HCL 4 MG/2 ML VIAL IV ONE (17:15)
[2020-10-17] MEDS ORDERED: PANTOPRAZOLE 40mg/50ML NS AE 50 ML IV ONE (17:15)
[2020-10-17 17:16] LABS: Basophils # (auto) 0 10 ^3/uL (0-0.2); Basophils % (auto) 0.5 % (0.0-2.0); Eosinophils # (auto) 0.2 10 ^3/uL (0-0.8); Hematocrit 28.9 % (41.0-53.0); Hemoglobin 9.9 g/dL (13.5-17.5); Lymphocytes # (auto) 2.6 10 ^3/uL (0.4-5.4); Lymphocytes % (auto) 23.5 % (10.0-50.0); Mean Corpuscular Hemoglobin 31.5 pg (28.0-32.0); Mean Corpuscular Hgb Conc. 34.2 g/dL (32.0-36.0); Mean Corpuscular Volume 92.3 fL (80.0-100.0); Monocytes # (auto) 0.7 10 ^3/uL (0-1.3); Monocytes % (auto) 6.4 % (0.0-12.0); Neutrophils # (auto) 7.3 10 ^3/uL (1.6-8.6); Neutrophils % (auto) 67.6 % (37.0-80.0); Nucleated Red Blood Cells % 0.1 %; Platelet Count (auto) 222 10^3/uL (140-450); Red Blood Cells 3.14 10^6/uL (4.5-5.90); Red Cell Distribution Width 13.4 % (11.8-14.3); White Blood Cell 10.8 10^3/uL (4.4-10.8)
[2020-10-17 17:31] LABS: INR 1.02 (0.9-1.15); Partial Thromboplastin Time 27.3 sec (23.0-31.2)
[2020-10-17 17:33] LABS: Albumin 3.1 g/dL (3.4-5.0); Potassium 4.1 mmol/L (3.5-5.1)
[2020-10-17 17:36] LABS: Bilirubin, Total 0.3 mg/dL (0.2-1.0); Total Protein 7.3 g/dL (6.4-8.2)
[2020-10-17] MEDS ORDERED: POLYETHYLENE GLYCOL 17 GM PWDR PO ONE (18:15)
[2020-10-17] MEDS ORDERED: ONDANSETRON HCL 4 MG/2 ML VIAL IV PRN (18:15)
[2020-10-17] MEDS ORDERED: DEXTROSE (50%) 50ML SYRG IV PRN (18:15)
[2020-10-17] MEDS ORDERED: MORPHINE SULF INJ 2 MG/ML SYRINGE 1ML IV PRN (18:15)
[2020-10-17] MEDS ORDERED: NITROGLYCERIN 0.4 MG SL TAB SL PRN (18:15)
[2020-10-17 21:55] VITALS: BP 143/69
[2020-10-17] MEDS: InsuLIN REG 1unit/0.01ml Soln (100units/ml) SC SCH (22:00)
[2020-10-17] MEDS: ACCU-CHEK COMFORT CURVE STRIP VI SCH (22:11)
[2020-10-17] MEDS: DOCUSATE SOD 100 MG CAP PO SCH (22:11)
[2020-10-17 23:19] VITALS: BP 143/69
[2020-10-18 04:13] VITALS: BP 143/69
[2020-10-18 04:58] VITALS: BP 116/66
[2020-10-18] MEDS: ACCU-CHEK COMFORT CURVE STRIP VI SCH ×4 (05:13→22:17)
[2020-10-18 06:18] LABS: Basophils # (auto) 0.1 10 ^3/uL (0-0.2); Basophils % (auto) 0.5 % (0.0-2.0); Eosinophils # (auto) 0.3 10 ^3/uL (0-0.8); Eosinophils % (auto) 2.5 % (0.0-7.0); Hematocrit 27.4 % (41.0-53.0); Hemoglobin 9.4 g/dL (13.5-17.5); Lymphocytes % (auto) 25.3 % (10.0-50.0); Mean Corpuscular Hemoglobin 31.6 pg (28.0-32.0); Mean Corpuscular Hgb Conc. 34.3 g/dL (32.0-36.0); Mean Corpuscular Volume 92.2 fL (80.0-100.0); Monocytes # (auto) 0.8 10 ^3/uL (0-1.3); Monocytes % (auto) 6.5 % (0.0-12.0); Neutrophils # (auto) 7.6 10 ^3/uL (1.6-8.6); Neutrophils % (auto) 65.2 % (37.0-80.0); Platelet Count (auto) 198 10^3/uL (140-450); Red Blood Cells 2.98 10^6/uL (4.5-5.90); Red Cell Distribution Width 12.8 % (11.8-14.3); White Blood Cell 11.7 10^3/uL (4.4-10.8)
[2020-10-18 06:47] LABS: Albumin 2.9 g/dL (3.4-5.0); Anion Gap 3 (5-15); Blood Urea Nitrogen 21 mg/dL (7-18); Calcium 8.3 mg/dL (8.5-10.1); Carbon Dioxide 30 mmol/L (21-32); Chloride 109 mmol/L (98-107); Glucose 69 mg/dL (74-106); Potassium 3.9 mmol/L (3.5-5.1); Sodium 142 mmol/L (136-145)
[2020-10-18] MEDS: InsuLIN REG 1unit/0.01ml Soln (100units/ml) SC SCH ×4 (06:47→22:00)
[2020-10-18 06:54] LABS: Alanine Aminotransferase 38 U/L (16-61); Alkaline Phosphatase 68 U/L (45-117); Aspartate Aminotransferase 27 U/L (15-37); BUN/Creatinine Ratio 22.6; Bilirubin, Total 0.4 mg/dL (0.2-1.0); Cholesterol 97 mg/dL (< 200); GFR African American 105 mL/min; GFR Non-African American 87 mL/min; HDL Cholesterol 33 mg/dL (40-59); LDL Cholesterol 48 mg/dL (< 100); Total Protein 6.6 g/dL (6.4-8.2); Triglycerides 196 mg/dL (< 150)
[2020-10-18 07:19] LABS: % Iron Saturation 10.9 % (20-55)
[2020-10-18 09:10] VITALS: BP 105/101
[2020-10-18] MEDS: DOCUSATE SOD 100 MG CAP PO SCH ×2 (10:00→22:16)
[2020-10-18 11:01] LABS: Urine Bacteria NONE SEEN /hpf (None Seen); Urine Blood Negative /uL (Negative); Urine Hyaline Cast FEW /lpf (0 - 2); Urine Mucus FEW (None Seen); Urine Specific Gravity 1.018 (1.001-1.035); Urine WBC 105 /hpf (0 - 3)
[2020-10-18 13:25] VITALS: BP 158/90
[2020-10-18] MEDS ORDERED: cefTRIAXone 1GM/50ML D5W 50 ML IV ONE (13:45)
[2020-10-18] MEDS ORDERED: HCTZ 25 MG TAB PO ONE (14:00)
[2020-10-18] MEDS ORDERED: LISINOPRIL 20 MG TAB PO ONE (14:00)
[2020-10-18 16:28] VITALS: BP 158/95
[2020-10-18] MEDS ORDERED: TEMAZEPAM 15 MG CAP PO PRN (22:00)
[2020-10-18] MEDS ORDERED: ATORVASTATIN 20 MG TAB PO SCH (22:00)
[2020-10-18 22:05] VITALS: BP 133/87
[2020-10-18] MEDS: HYDROcodone-ACET 10/325MG TAB PO PRN (22:17)
[2020-10-19] MEDS: HYDROcodone-ACET 10/325MG TAB PO PRN (03:12)
[2020-10-19 05:23] VITALS: BP 141/77
[2020-10-19] MEDS: InsuLIN REG 1unit/0.01ml Soln (100units/ml) SC SCH ×2 (06:32→12:18)
[2020-10-19] MEDS: ACCU-CHEK COMFORT CURVE STRIP VI SCH ×2 (06:32→12:17)
[2020-10-19 06:42] LABS: Basophils # (auto) 0.1 10 ^3/uL (0-0.2); Basophils % (auto) 0.6 % (0.0-2.0); Eosinophils # (auto) 0.4 10 ^3/uL (0-0.8); Eosinophils % (auto) 3.4 % (0.0-7.0); Hematocrit 30.5 % (41.0-53.0); Hemoglobin 10.1 g/dL (13.5-17.5); Lymphocytes # (auto) 3.4 10 ^3/uL (0.4-5.4); Lymphocytes % (auto) 31.8 % (10.0-50.0); Mean Corpuscular Hemoglobin 30.7 pg (28.0-32.0); Mean Corpuscular Hgb Conc. 33.2 g/dL (32.0-36.0); Mean Corpuscular Volume 92.6 fL (80.0-100.0); Monocytes # (auto) 0.7 10 ^3/uL (0-1.3); Monocytes % (auto) 6.3 % (0.0-12.0); Neutrophils # (auto) 6.2 10 ^3/uL (1.6-8.6); Neutrophils % (auto) 57.9 % (37.0-80.0); Platelet Count (auto) 215 10^3/uL (140-450); Red Blood Cells 3.29 10^6/uL (4.5-5.90); Red Cell Distribution Width 13.2 % (11.8-14.3); White Blood Cell 10.8 10^3/uL (4.4-10.8)
[2020-10-19 08:28] VITALS: BP 156/86
[2020-10-19] MEDS ORDERED: cefTRIAXone 1GM/50ML D5W 50 ML IV SCH (09:00)
[2020-10-19] MEDS: DOCUSATE SOD 100 MG CAP PO SCH ×2 (09:40→09:47)
[2020-10-19] MEDS ORDERED: LISINOPRIL 20 MG TAB PO SCH (10:00)
[2020-10-19] MEDS ORDERED: HCTZ 25 MG TAB PO SCH (10:00)
[2020-10-19 13:15] VITALS: BP 172/97
[2020-10-19 15:20] VITALS: BP 132/74
== END 2020-10-19 16:41 | disposition home or self-care (01) | DRG 920 ==
LOC: ER 15:52 → TELE 18:15 → TELE-CENTR 21:30
PROVIDERS: ADMIT Nurse Practitioner Acute Care; ATTEND Family Medicine
DX: K91.840 Postprocedural hemorrhage of a digestive system organ or structure following a digestive system procedure (principal); I69.354 Hemiplegia and hemiparesis following cerebral infarction affecting left non-dominant side; Z68.41 Body mass index [BMI] 40.0-44.9, adult; K64.8 Other hemorrhoids; K76.0 Fatty (change of) liver, not elsewhere classified; N18.30 Chronic kidney disease, stage 3 unspecified; N20.0 Calculus of kidney; N32.89 Other specified disorders of bladder; D64.9 Anemia, unspecified; E11.22 Type 2 diabetes mellitus with diabetic chronic kidney disease; E11.65 Type 2 diabetes mellitus with hyperglycemia; E66.9 Obesity, unspecified; E78.00 Pure hypercholesterolemia, unspecified; E78.5 Hyperlipidemia, unspecified; E86.0 Dehydration; E88.09 Other disorders of plasma-protein metabolism, not elsewhere classified; Y83.8 Other surgical procedures as the cause of abnormal reaction of the patient, or of later complication, without mention of misadventure at the time of the procedure; I12.9 Hypertensive chronic kidney disease with stage 1 through stage 4 chronic kidney disease, or unspecified chronic kidney disease; K40.90 Unilateral inguinal hernia, without obstruction or gangrene, not specified as recurrent; K44.9 Diaphragmatic hernia without obstruction or gangrene; K59.00 Constipation, unspecified; Z79.4 Long term (current) use of insulin; Z79.899 Other long term (current) drug therapy; Z80.0 Family history of malignant neoplasm of digestive organs; Z82.49 Family history of ischemic heart disease and other diseases of the circulatory system; Z83.3 Family history of diabetes mellitus; Z87.442 Personal history of urinary calculi; B95.2 Enterococcus as the cause of diseases classified elsewhere
CPT/HCPCS: 36415; 74176; 80053; 80061; 81001; 82270; 82962; 83540; 83550; 83690; 84484; 85025; 85610; 85730; 86850; 86900; 86901; 87086; 87088; 87186; 93005; 93306; 96361; 96365; G0378; J0696; J1815

== ENCOUNTER → 2021-05-18 | Outpatient (CLI) | payer BC ==
[~2021-05-18] MED LIST changes: -GABA800T97 PO
[2021-05-18 14:01] LABS: Basophils # (auto) 0.1 10 ^3/uL (0-0.2); Basophils % (auto) 0.7 % (0.0-2.0); Eosinophils # (auto) 0.2 10 ^3/uL (0-0.8); Eosinophils % (auto) 1.7 % (0.0-7.0); Hematocrit 51.6 % (41.0-53.0); Hemoglobin 17.4 g/dL (13.5-17.5); Lymphocytes # (auto) 2.9 10 ^3/uL (0.4-5.4); Lymphocytes % (auto) 25.5 % (10.0-50.0); Mean Corpuscular Hemoglobin 30.3 pg (28.0-32.0); Mean Corpuscular Hgb Conc. 33.7 g/dL (32.0-36.0); Mean Corpuscular Volume 89.8 fL (80.0-100.0); Monocytes # (auto) 0.8 10 ^3/uL (0-1.3); Monocytes % (auto) 6.7 % (0.0-12.0); Neutrophils # (auto) 7.3 10 ^3/uL (1.6-8.6); Neutrophils % (auto) 65.4 % (37.0-80.0); Platelet Count (auto) 259 10^3/uL (140-450); Red Blood Cells 5.74 10^6/uL (4.5-5.90); White Blood Cell 11.2 10^3/uL (4.4-10.8)
[2021-05-18 14:25] LABS: Albumin 3.7 g/dL (3.4-5.0); Calcium 9.5 mg/dL (8.5-10.1)
[2021-05-18 14:31] LABS: BUN/Creatinine Ratio 20.4; Bilirubin, Total 0.9 mg/dL (0.2-1.0); Total Protein 8.8 g/dL (6.4-8.2)
== END | disposition home or self-care (01) ==
LOC: LAB 13:31
PROVIDERS: ATTEND Nurse Practitioner Family
DX: E11.29 Type 2 diabetes mellitus with other diabetic kidney complication (principal); E66.9 Obesity, unspecified; I10 Essential (primary) hypertension; R35.1 Nocturia
CPT/HCPCS: 36415; 80053; 80061; 82043; 83036; 84153; 85025

== ENCOUNTER → 2021-05-23 | Outpatient (CLI) | payer BC | END | disposition home or self-care (01) | LOC: XY 09:52 | PROVIDERS: ATTEND Internal Medicine | DX: R00.2 Palpitations (principal) | CPT/HCPCS: 93886 ==

== ENCOUNTER → 2021-07-11 | Outpatient (CLI) | payer BC ==
[~2021-07-11] MED LIST changes: +BUPIVACAINE HCL 0.25% P/F 10 ML VIAL ONE; +IOHEXOL 300 MG/ML 100ML BOTTLE IJ ONE; +LIDOCAINE 2%HCL (LOCAL ANESTH.) INJ 20ML MDV ONE; +methylPREDNISolone ACETATE 80 MG/ML VL ONE
== END | disposition home or self-care (01) ==
LOC: XY 13:18
PROVIDERS: ATTEND Orthopaedic Surgery Sports Medicine
DX: M25.512 Pain in left shoulder (principal); G47.30 Sleep apnea, unspecified; Z98.890 Other specified postprocedural states; Z79.899 Other long term (current) drug therapy; Z80.0 Family history of malignant neoplasm of digestive organs
CPT/HCPCS: 20610; 73030; 77002; J1040; J3490; Q9967; 76000

== ENCOUNTER → 2021-10-31 | Outpatient (CLI) | payer BC ==
[~2021-10-31] MED LIST changes: -BUPIVACAINE HCL 0.25% P/F 10 ML VIAL ONE; -IOHEXOL 300 MG/ML 100ML BOTTLE IJ ONE; -LIDOCAINE 2%HCL (LOCAL ANESTH.) INJ 20ML MDV ONE; -methylPREDNISolone ACETATE 80 MG/ML VL ONE
== END | disposition home or self-care (01) ==
LOC: XYW 09:59
PROVIDERS: ATTEND Internal Medicine
DX: I51.7 Cardiomegaly (principal); I10 Essential (primary) hypertension
CPT/HCPCS: 93306

== ENCOUNTER 2022-01-13 20:04 | Inpatient (IN) | payer BC, MEDICARE ==
[~2022-01-13] VITALS: Ht 177.8 cm; Wt 118.8 kg
[2022-01-13] MEDS ORDERED: VANCOMYCIN 1GM/250ML 250 ML IV ONE (21:30)
[2022-01-13] MEDS ORDERED: HYDROmorphone HCL 2 MG/ML VL IV ONE (21:30)
[2022-01-13] MEDS ORDERED: PIPERACILLIN-TAZOB 3.375GM 100 ML IV ONE (21:30)
[2022-01-13 22:37] LABS: Urine Bacteria NONE SEEN /hpf (None Seen); Urine Blood 2+ /uL (Negative); Urine Budding Yeast OCCASIONAL /hpf (None Seen); Urine Hyaline Cast MOD /lpf (0 - 2); Urine Mucus FEW (None Seen); Urine Specific Gravity 1.025 (1.001-1.035); Urine WBC 3 /hpf (0 - 3)
[2022-01-13] MEDS ORDERED: SODIUM CHLORIDE 0.9% 2,000 ML IV ONE (23:00)
[2022-01-13] MEDS ORDERED: InsuLIN REG 1unit/0.01ml Soln (100units/ml) IV ONE (23:00)
[2022-01-13 23:03] LABS: Basophils # (auto) 0.1 10 ^3/uL (0-0.2); Basophils % (auto) 0.5 % (0.0-2.0); Eosinophils # (auto) 0 10 ^3/uL (0-0.8); Eosinophils % (auto) 0.1 % (0.0-7.0); Hematocrit 42.4 % (41.0-53.0); Hemoglobin 14.2 g/dL (13.5-17.5); Lymphocytes # (auto) 0.9 10 ^3/uL (0.4-5.4); Lymphocytes % (auto) 3.9 % (10.0-50.0); Mean Corpuscular Hemoglobin 29.3 pg (28.0-32.0); Mean Corpuscular Hgb Conc. 33.6 g/dL (32.0-36.0); Mean Corpuscular Volume 87.4 fL (80.0-100.0); Monocytes # (auto) 2.1 10 ^3/uL (0-1.3); Monocytes % (auto) 8.7 % (0.0-12.0); Neutrophils # (auto) 20.5 10 ^3/uL (1.6-8.6); Neutrophils % (auto) 86.8 % (37.0-80.0); Red Blood Cells 4.86 10^6/uL (4.5-5.90); White Blood Cell 23.6 10^3/uL (4.4-10.8)
[2022-01-13 23:22] LABS: Albumin 2.4 g/dL (3.4-5.0); Calcium 9.1 mg/dL (8.5-10.1); Potassium 4.2 mmol/L (3.5-5.1)
[2022-01-13 23:26] LABS: Lactic Acid w/Reflex 2.5 mmol/L (0.4-2.0)
[2022-01-13 23:43] LABS: BUN/Creatinine Ratio 19.9; Bilirubin, Total 1.1 mg/dL (0.2-1.0); Total Protein 9.1 g/dL (6.4-8.2)
[2022-01-14] MEDS ORDERED: SODIUM BICARBONATE 8.4 % INJ 50ML VIAL IV ONE (00:30)
[2022-01-14] MEDS ORDERED: SODIUM CHLORIDE 0.9% 3,650 ML IV ONE (00:30)
[2022-01-14] MEDS ORDERED: TEMAZEPAM 15 MG CAP PO PRN (08:15)
[2022-01-14] MEDS ORDERED: SODIUM CHLORIDE 0.9% 1,000 ML IV ONE (08:15)
[2022-01-14] MEDS ORDERED: ALUM & MAG HYDROX-SIMETH LIQ(MAALOX) 30 ML PO PRN (08:15)
[2022-01-14] MEDS ORDERED: ACETAMINOPHEN 325 MG TAB PO PRN (08:15)
[2022-01-14] MEDS: SODIUM CHLORIDE 0.9% 1,000 ML IV SCH (08:15)
[2022-01-14] MEDS ORDERED: VANCOMYCIN PER PHARMACY 0 MG IV SCH (08:15)
[2022-01-14] MEDS ORDERED: NITROGLYCERIN 0.4 MG SL TAB SL PRN (08:15)
[2022-01-14] MEDS ORDERED: MORPHINE SULFATE INJECTION 2 MG/ML SYRG IV PRN ×2 (08:15)
[2022-01-14] MEDS ORDERED: DEXTROSE (50%) 50ML SYRG IV PRN (08:30)
[2022-01-14 08:35] LABS: Basophils # (auto) 0 10 ^3/uL (0-0.2); Basophils % (auto) 0.2 % (0.0-2.0); Eosinophils # (auto) 0 10 ^3/uL (0-0.8); Hematocrit 37.1 % (41.0-53.0); Hemoglobin 12.4 g/dL (13.5-17.5); Lymphocytes # (auto) 1.7 10 ^3/uL (0.4-5.4); Lymphocytes % (auto) 8.3 % (10.0-50.0); Mean Corpuscular Hemoglobin 29.2 pg (28.0-32.0); Mean Corpuscular Hgb Conc. 33.3 g/dL (32.0-36.0); Mean Corpuscular Volume 87.7 fL (80.0-100.0); Monocytes # (auto) 1.9 10 ^3/uL (0-1.3); Monocytes % (auto) 9.2 % (0.0-12.0); Neutrophils % (auto) 82.3 % (37.0-80.0); Nucleated Red Blood Cells % 0.1 %; Red Blood Cells 4.23 10^6/uL (4.5-5.90); Red Cell Distribution Width 13.4 % (11.8-14.3); White Blood Cell 20.6 10^3/uL (4.4-10.8)
[2022-01-14 08:38] LABS: Albumin 1.8 g/dL (3.4-5.0); Calcium 8.2 mg/dL (8.5-10.1); Magnesium 2.1 mg/dL (1.6-2.6); Potassium 3.6 mmol/L (3.5-5.1)
[2022-01-14 08:41] LABS: BUN/Creatinine Ratio 23.4; Bilirubin, Total 0.9 mg/dL (0.2-1.0); Total Protein 7.4 g/dL (6.4-8.2)
[2022-01-14 08:45] LABS: INR 1.1 (0.9-1.15); Partial Thromboplastin Time 31.7 sec (23.6-33.0)
[2022-01-14] MEDS ORDERED: MEROPENEM 1GM IVPB 100 ML IV SCH (09:00)
[2022-01-14 09:34] LABS: Protein, Urine 220.7 mg/dL (0.0-11.9)
[2022-01-14] MEDS: INSULIN 70/30 1unit/0.01ml Susp (100units/ml) SC SCH ×2 (10:40→23:24)
[2022-01-14] MEDS: ACCU-CHEK COMFORT CURVE STRIP VI SCH ×3 (12:00→23:17)
[2022-01-14] MEDS ORDERED: VANCOMYCIN 1GM/250ML 250 ML IV SCH (12:00)
[2022-01-14 13:00] VITALS: BP 144/86
[2022-01-14] MEDS: SODIUM CHLOR 0.9% PF (SALINE LOCK) 10ML VIAL/SYR IV SCH ×2 (14:00→23:16)
[2022-01-14 16:46] VITALS: BP 143/81
[2022-01-14] MEDS: InsuLIN REG 1unit/0.01ml Soln (100units/ml) SC SCH ×3 (18:00→23:24)
[2022-01-14 22:00] VITALS: BP 148/77
[2022-01-14] MEDS: VANCOMYCIN 1GM/250ML 250 ML IV SCH (23:16)
[2022-01-15] MEDS: SODIUM CHLORIDE 0.9% 1,000 ML IV SCH (01:53)
[2022-01-15] MEDS: MEROPENEM 1GM IVPB 100 ML IV SCH ×3 (02:27→16:00)
[2022-01-15] MEDS ORDERED: KETOROLAC TROMETH 30 MG/ML 1ML VIAL IV ONE (02:30)
[2022-01-15 03:50] VITALS: BP 148/77
[2022-01-15 05:00] VITALS: BP 132/72
[2022-01-15] MEDS: ACCU-CHEK COMFORT CURVE STRIP VI SCH ×3 (06:34→18:00)
[2022-01-15] MEDS: SODIUM CHLOR 0.9% PF (SALINE LOCK) 10ML VIAL/SYR IV SCH ×3 (06:34→23:51)
[2022-01-15] MEDS: InsuLIN REG 1unit/0.01ml Soln (100units/ml) SC SCH ×3 (06:51→18:00)
[2022-01-15] MEDS ORDERED: ceFAZolin 1GM/50ML 100 ML IV ONE (07:15)
[2022-01-15] MEDS ORDERED: ROPIVACAINE 0.5% (5MG/ML) 20ML AMPULE IJ ONE (07:28)
[2022-01-15] MEDS ORDERED: MIDAZOLAM HCL 2MG/2ML 2ml VIAL (1mg/ml) ONE (07:36)
[2022-01-15] MEDS ORDERED: MEPERIDINE HCL (25 MG/ML) 1ML VIAL ONE (07:36)
[2022-01-15 07:52] LABS: Basophils # (auto) 0.1 10 ^3/uL (0-0.2); Basophils % (auto) 0.3 % (0.0-2.0); Eosinophils # (auto) 0.2 10 ^3/uL (0-0.8); Eosinophils % (auto) 1.3 % (0.0-7.0); Hematocrit 35.6 % (41.0-53.0); Hemoglobin 11.9 g/dL (13.5-17.5); Lymphocytes # (auto) 1.5 10 ^3/uL (0.4-5.4); Mean Corpuscular Hgb Conc. 33.3 g/dL (32.0-36.0); Mean Corpuscular Volume 87.1 fL (80.0-100.0); Monocytes # (auto) 1.7 10 ^3/uL (0-1.3); Monocytes % (auto) 8.9 % (0.0-12.0); Neutrophils # (auto) 15.2 10 ^3/uL (1.6-8.6); Neutrophils % (auto) 81.5 % (37.0-80.0); Nucleated Red Blood Cells % 0.1 %; Red Blood Cells 4.09 10^6/uL (4.5-5.90); White Blood Cell 18.7 10^3/uL (4.4-10.8)
[2022-01-15 07:55] LABS: BUN/Creatinine Ratio 22.6; Calcium 8.1 mg/dL (8.5-10.1)
[2022-01-15] MEDS ORDERED: ceFAZolin 1GM VL ONE (07:57)
[2022-01-15] MEDS ORDERED: ePHEDrine SULFATE 50 MG/ML AMP IV PRN (08:45)
[2022-01-15] MEDS ORDERED: MORPHINE SULFATE 4 MG/ML SYR/VIAL IV PRN (08:45)
[2022-01-15] MEDS ORDERED: MIDAZOLAM HCL 2MG/2ML 2ml VIAL (1mg/ml) IV PRN (08:45)
[2022-01-15] MEDS ORDERED: HYDROmorphone HCL 2 MG/ML VL IV PRN (08:45)
[2022-01-15] MEDS ORDERED: LABETALOL HCL 5 MG/ML 4ML SYRINGE IV PRN (08:45)
[2022-01-15] MEDS ORDERED: ACCU-CHEK COMFORT CURVE STRIP VI ONE (08:45)
[2022-01-15] MEDS ORDERED: ONDANSETRON HCL 4 MG/2 ML VIAL IV PRN (08:45)
[2022-01-15] MEDS: INSULIN 70/30 1unit/0.01ml Susp (100units/ml) SC SCH ×2 (10:00→23:52)
[2022-01-15] MEDS: VANCOMYCIN 1GM/250ML 250 ML IV SCH ×2 (10:00→23:53)
[2022-01-15] MEDS: POTASSIUM CHL 10MEQ/50ML 50 ML IV SCH ×6 (11:21→18:00)
[2022-01-15] MEDS ORDERED: MEPERIDINE HCL (25 MG/ML) 1ML VIAL IM PRN (12:30)
[2022-01-15 13:00] VITALS: BP 114/78
[2022-01-15] MEDS: ERGOCALCIFEROL 50,000 UNIT(1.25MG) CAP PO SCH (13:00)
[2022-01-15] MEDS: MEPERIDINE HCL (25 MG/ML) 1ML VIAL IV PRN ×3 (13:30→21:50)
[2022-01-15 22:00] VITALS: BP 160/78
[2022-01-15] MEDS ORDERED: HYDR12.55 PO (23:42)
[2022-01-15 23:45] VITALS: BP 160/78
[2022-01-16] MEDS: InsuLIN REG 1unit/0.01ml Soln (100units/ml) SC SCH ×4 (00:01→17:39)
[2022-01-16] MEDS: ACCU-CHEK COMFORT CURVE STRIP VI SCH ×4 (00:01→17:39)
[2022-01-16] MEDS: MEPERIDINE HCL (25 MG/ML) 1ML VIAL IV PRN ×6 (01:52→22:35)
[2022-01-16 02:00] VITALS: BP 164/94
[2022-01-16] MEDS ORDERED: LABETALOL HCL 5 MG/ML 4ML SYRINGE IV ONE (03:00)
[2022-01-16 05:00] VITALS: BP 177/106
[2022-01-16] MEDS: SODIUM CHLOR 0.9% PF (SALINE LOCK) 10ML VIAL/SYR IV SCH ×3 (06:04→21:58)
[2022-01-16] MEDS ORDERED: dilTIAZem 25 MG/5 ML VIAL IV ONE ×2 (06:30→07:49)
[2022-01-16 07:02] LABS: Basophils # (auto) 0.1 10 ^3/uL (0-0.2); Basophils % (auto) 0.4 % (0.0-2.0); Eosinophils # (auto) 0.3 10 ^3/uL (0-0.8); Eosinophils % (auto) 1.7 % (0.0-7.0); Hematocrit 36.3 % (41.0-53.0); Hemoglobin 11.7 g/dL (13.5-17.5); Lymphocytes # (auto) 2.2 10 ^3/uL (0.4-5.4); Lymphocytes % (auto) 10.8 % (10.0-50.0); Mean Corpuscular Hemoglobin 28.1 pg (28.0-32.0); Mean Corpuscular Hgb Conc. 32.2 g/dL (32.0-36.0); Mean Corpuscular Volume 87.1 fL (80.0-100.0); Monocytes # (auto) 1.7 10 ^3/uL (0-1.3); Monocytes % (auto) 8.7 % (0.0-12.0); Neutrophils # (auto) 15.8 10 ^3/uL (1.6-8.6); Neutrophils % (auto) 78.4 % (37.0-80.0); Red Blood Cells 4.17 10^6/uL (4.5-5.90); Red Cell Distribution Width 13.5 % (11.8-14.3); White Blood Cell 20.1 10^3/uL (4.4-10.8)
[2022-01-16 07:18] LABS: Calcium 7.7 mg/dL (8.5-10.1); Magnesium 2.2 mg/dL (1.6-2.6); Potassium 3.2 mmol/L (3.5-5.1)
[2022-01-16 07:30] LABS: BUN/Creatinine Ratio 16.9; CRP High Sensitivity 14.3 mg/dL (< 0.3)
[2022-01-16] MEDS: MEROPENEM 1GM IVPB 100 ML IV SCH ×2 (08:26→17:15)
[2022-01-16 09:00] VITALS: BP 182/99
[2022-01-16] MEDS: amLODIPine BESYLATE 5 MG TAB PO SCH (10:06)
[2022-01-16] MEDS: INSULIN 70/30 1unit/0.01ml Susp (100units/ml) SC SCH ×2 (10:09→22:33)
[2022-01-16] MEDS ORDERED: POTASSIUM CHL 20 Meq TABLET PO ONE (10:15)
[2022-01-16] MEDS: SODIUM CHLORIDE 0.9% 1,000 ML IV SCH ×2 (10:33→23:35)
[2022-01-16] MEDS: VANCOMYCIN 1GM/250ML 250 ML IV SCH ×2 (11:45→21:58)
[2022-01-16] MEDS ORDERED: LOSARTAN POTASSIUM 50 MG TAB PO ONE (11:45)
[2022-01-16 13:00] VITALS: BP 172/90
[2022-01-16] MEDS: HYDROcodone-ACET 5/325MG TAB PO PRN (14:01)
[2022-01-16 17:00] VITALS: BP 161/77
[2022-01-16 22:00] VITALS: BP 150/83
[2022-01-17] MEDS: MEROPENEM 1GM IVPB 100 ML IV SCH ×3 (00:07→23:35)
[2022-01-17] MEDS: ACCU-CHEK COMFORT CURVE STRIP VI SCH ×5 (00:07→23:50)
[2022-01-17] MEDS: InsuLIN REG 1unit/0.01ml Soln (100units/ml) SC SCH ×5 (00:11→23:56)
[2022-01-17] MEDS: MEPERIDINE HCL (25 MG/ML) 1ML VIAL IV PRN ×6 (03:04→23:36)
[2022-01-17 05:00] VITALS: BP 161/89
[2022-01-17] MEDS: HYDROcodone-ACET 5/325MG TAB PO PRN ×2 (05:04→18:16)
[2022-01-17] MEDS: SODIUM CHLOR 0.9% PF (SALINE LOCK) 10ML VIAL/SYR IV SCH ×4 (05:22→23:50)
[2022-01-17 07:01] LABS: Basophils # (auto) 0.1 10 ^3/uL (0-0.2); Basophils % (auto) 0.3 % (0.0-2.0); Eosinophils # (auto) 0.3 10 ^3/uL (0-0.8); Eosinophils % (auto) 1.8 % (0.0-7.0); Hematocrit 33.8 % (41.0-53.0); Hemoglobin 11.7 g/dL (13.5-17.5); Lymphocytes # (auto) 1.9 10 ^3/uL (0.4-5.4); Lymphocytes % (auto) 10.6 % (10.0-50.0); Mean Corpuscular Hemoglobin 29.8 pg (28.0-32.0); Mean Corpuscular Hgb Conc. 34.7 g/dL (32.0-36.0); Mean Corpuscular Volume 85.8 fL (80.0-100.0); Monocytes # (auto) 1.5 10 ^3/uL (0-1.3); Monocytes % (auto) 8.2 % (0.0-12.0); Neutrophils # (auto) 14.1 10 ^3/uL (1.6-8.6); Neutrophils % (auto) 79.1 % (37.0-80.0); Nucleated Red Blood Cells % 0.1 %; Red Blood Cells 3.94 10^6/uL (4.5-5.90); Red Cell Distribution Width 13.1 % (11.8-14.3); White Blood Cell 17.8 10^3/uL (4.4-10.8)
[2022-01-17 07:07] LABS: BUN/Creatinine Ratio 15.4; Calcium 7.7 mg/dL (8.5-10.1); Potassium 3.4 mmol/L (3.5-5.1)
[2022-01-17 09:00] VITALS: BP 143/68
[2022-01-17] MEDS: LOSARTAN POTASSIUM 50 MG TAB PO SCH (09:02)
[2022-01-17] MEDS: amLODIPine BESYLATE 5 MG TAB PO SCH (09:02)
[2022-01-17] MEDS: INSULIN 70/30 1unit/0.01ml Susp (100units/ml) SC SCH ×2 (09:03→23:34)
[2022-01-17] MEDS: SODIUM CHLORIDE 0.9% 1,000 ML IV SCH (12:55)
[2022-01-17 13:00] VITALS: BP 157/82
[2022-01-17] MEDS: VANCOMYCIN 1GM/250ML 250 ML IV SCH ×2 (14:00→23:49)
[2022-01-17 17:00] VITALS: BP 150/75
[2022-01-17] MEDS ORDERED: LIDOCAINE 1% (LOCAL ANESTH.) PF 5ml SDV ID ONE (18:15)
[2022-01-17 22:00] VITALS: BP 143/86
[2022-01-18] MEDS: MEPERIDINE HCL (25 MG/ML) 1ML VIAL IV PRN ×5 (03:53→22:03)
[2022-01-18 05:00] VITALS: BP 145/79
[2022-01-18] MEDS: VANCOMYCIN 1GM/250ML 250 ML IV SCH ×3 (05:47→22:00)
[2022-01-18] MEDS: SODIUM CHLOR 0.9% PF (SALINE LOCK) 10ML VIAL/SYR IV SCH ×5 (05:47→22:00)
[2022-01-18] MEDS: ACCU-CHEK COMFORT CURVE STRIP VI SCH ×3 (05:48→18:00)
[2022-01-18] MEDS: InsuLIN REG 1unit/0.01ml Soln (100units/ml) SC SCH ×3 (05:49→18:00)
[2022-01-18] MEDS: HYDROcodone-ACET 5/325MG TAB PO PRN ×2 (05:54→17:00)
[2022-01-18 06:06] LABS: BUN/Creatinine Ratio 17.6; Calcium 8.1 mg/dL (8.5-10.1); Potassium 3.6 mmol/L (3.5-5.1)
[2022-01-18 06:13] LABS: Hematocrit 37.5 % (41.0-53.0); Hemoglobin 12.3 g/dL (13.5-17.5); Mean Corpuscular Hemoglobin 28.5 pg (28.0-32.0); Mean Corpuscular Hgb Conc. 32.7 g/dL (32.0-36.0); Red Cell Distribution Width 13.2 % (11.8-14.3); White Blood Cell 17.2 10^3/uL (4.4-10.8)
[2022-01-18 06:16] LABS: Basophils % (manual) 0 (0.0-2.0); Blast Cells 0; Metamyelocytes % 0; Myelocytes % 0; Promyelocytes % 0; Reactive Lymphocytes 0
[2022-01-18] MEDS: MEROPENEM 1GM IVPB 100 ML IV SCH ×3 (06:46→23:00)
[2022-01-18 08:32] LABS: Band Neutrophils % (manual) 3; Eosinophils % (manual) 5 (0-7); Lymphocytes % (manual) 14 (10.0-50.0); Monocytes % (manual) 10 (0-12)
[2022-01-18 09:00] VITALS: BP 158/90
[2022-01-18] MEDS ORDERED: ENOXAPARIN SOD 40 MG/0.4 ML SYRINGE SC ONE (09:30)
[2022-01-18] MEDS: LOSARTAN POTASSIUM 50 MG TAB PO SCH (10:00)
[2022-01-18] MEDS: ENOXAPARIN SOD 40 MG/0.4 ML SYRINGE SC SCH (10:00)
[2022-01-18] MEDS: INSULIN 70/30 1unit/0.01ml Susp (100units/ml) SC SCH ×2 (10:00→22:00)
[2022-01-18] MEDS: amLODIPine BESYLATE 5 MG TAB PO SCH (10:00)
[2022-01-18] MEDS: DAPAGLIFLOZIN 5 MG TAB PO SCH (10:07)
[2022-01-18 13:00] VITALS: BP 160/84
[2022-01-18] MEDS ORDERED: LACTULOSE 20Gm/30ML SOLN PO PRN (13:00)
[2022-01-18 17:00] VITALS: BP 188/105
[2022-01-19] MEDS: HYDROcodone-ACET 5/325MG TAB PO PRN ×2 (00:30→15:24)
[2022-01-19] MEDS: MEPERIDINE HCL (25 MG/ML) 1ML VIAL IV PRN ×6 (02:23→22:00)
[2022-01-19] MEDS: InsuLIN REG 1unit/0.01ml Soln (100units/ml) SC SCH ×4 (06:00→18:08)
[2022-01-19] MEDS: VANCOMYCIN 1GM/250ML 250 ML IV SCH ×3 (06:28→22:00)
[2022-01-19] MEDS: SODIUM CHLOR 0.9% PF (SALINE LOCK) 10ML VIAL/SYR IV SCH ×5 (06:29→22:00)
[2022-01-19] MEDS: ACCU-CHEK COMFORT CURVE STRIP VI SCH ×4 (06:29→18:00)
[2022-01-19] MEDS: MEROPENEM 1GM IVPB 100 ML IV SCH (07:00)
[2022-01-19 09:00] VITALS: BP 163/95
[2022-01-19] MEDS: ENOXAPARIN SOD 40 MG/0.4 ML SYRINGE SC SCH (09:37)
[2022-01-19] MEDS: amLODIPine BESYLATE 5 MG TAB PO SCH (09:37)
[2022-01-19] MEDS: DAPAGLIFLOZIN 5 MG TAB PO SCH (09:37)
[2022-01-19] MEDS ORDERED: LOSARTAN POTASSIUM 50 MG TAB PO SCH (10:00)
[2022-01-19] MEDS: INSULIN 70/30 1unit/0.01ml Susp (100units/ml) SC SCH ×2 (10:05→22:00)
[2022-01-19 13:00] VITALS: BP 184/98
[2022-01-19 13:22] VITALS: BP 182/92
[2022-01-19 17:00] VITALS: BP 158/89
[2022-01-19] MEDS ORDERED: LISINOPRIL 20 MG TAB PO ONE (18:15)
[2022-01-19 22:00] VITALS: BP 141/84
[2022-01-20] MEDS: MEPERIDINE HCL (25 MG/ML) 1ML VIAL IV PRN ×6 (02:23→22:32)
[2022-01-20 05:00] VITALS: BP 124/81
[2022-01-20] MEDS: VANCOMYCIN 1GM/250ML 250 ML IV SCH ×3 (06:24→22:21)
[2022-01-20] MEDS: SODIUM CHLOR 0.9% PF (SALINE LOCK) 10ML VIAL/SYR IV SCH ×5 (06:24→22:21)
[2022-01-20] MEDS: ACCU-CHEK COMFORT CURVE STRIP VI SCH ×4 (06:27→17:29)
[2022-01-20] MEDS: InsuLIN REG 1unit/0.01ml Soln (100units/ml) SC SCH ×4 (06:27→17:41)
[2022-01-20 09:00] VITALS: BP 140/92
[2022-01-20] MEDS ORDERED: traMADol HCL 50 MG TAB PO PRN (09:45)
[2022-01-20] MEDS: INSULIN 70/30 1unit/0.01ml Susp (100units/ml) SC SCH ×2 (10:00→22:00)
[2022-01-20] MEDS: ENOXAPARIN SOD 40 MG/0.4 ML SYRINGE SC SCH (10:34)
[2022-01-20] MEDS: amLODIPine BESYLATE 5 MG TAB PO SCH (10:34)
[2022-01-20] MEDS: DAPAGLIFLOZIN 5 MG TAB PO SCH (10:34)
[2022-01-20] MEDS: LISINOPRIL 20 MG TAB PO SCH (10:35)
[2022-01-20 13:00] VITALS: BP 154/97
[2022-01-20 17:00] VITALS: BP 158/83
[2022-01-20 22:00] VITALS: BP 147/78
[2022-01-21] MEDS: ACCU-CHEK COMFORT CURVE STRIP VI SCH ×4 (00:13→18:12)
[2022-01-21] MEDS: InsuLIN REG 1unit/0.01ml Soln (100units/ml) SC SCH ×4 (00:15→18:20)
[2022-01-21] MEDS: MEPERIDINE HCL (25 MG/ML) 1ML VIAL IV PRN ×5 (02:42→22:20)
[2022-01-21 05:00] VITALS: BP 142/83
[2022-01-21] MEDS: VANCOMYCIN 1GM/250ML 250 ML IV SCH ×2 (06:00→20:00)
[2022-01-21] MEDS: SODIUM CHLOR 0.9% PF (SALINE LOCK) 10ML VIAL/SYR IV SCH ×5 (06:00→21:43)
[2022-01-21 07:38] LABS: Basophils # (auto) 0.1 10 ^3/uL (0-0.2); Basophils % (auto) 0.6 % (0.0-2.0); Eosinophils # (auto) 0.6 10 ^3/uL (0-0.8); Eosinophils % (auto) 4.4 % (0.0-7.0); Hematocrit 40.1 % (41.0-53.0); Hemoglobin 13.3 g/dL (13.5-17.5); Lymphocytes # (auto) 2.5 10 ^3/uL (0.4-5.4); Lymphocytes % (auto) 17.1 % (10.0-50.0); Mean Corpuscular Hgb Conc. 33.1 g/dL (32.0-36.0); Mean Corpuscular Volume 87.6 fL (80.0-100.0); Monocytes % (auto) 7.2 % (0.0-12.0); Neutrophils # (auto) 10.2 10 ^3/uL (1.6-8.6); Neutrophils % (auto) 70.7 % (37.0-80.0); Nucleated Red Blood Cells % 0.1 %; Red Blood Cells 4.58 10^6/uL (4.5-5.90); Red Cell Distribution Width 13.3 % (11.8-14.3); White Blood Cell 14.4 10^3/uL (4.4-10.8)
[2022-01-21 07:55] LABS: BUN/Creatinine Ratio 21.5; Calcium 8.2 mg/dL (8.5-10.1); Magnesium 2.3 mg/dL (1.6-2.6); Potassium 4.4 mmol/L (3.5-5.1)
[2022-01-21 09:00] VITALS: BP 159/80
[2022-01-21] MEDS: DAPAGLIFLOZIN 5 MG TAB PO SCH (10:50)
[2022-01-21] MEDS: amLODIPine BESYLATE 5 MG TAB PO SCH (10:50)
[2022-01-21] MEDS: LISINOPRIL 20 MG TAB PO SCH (10:51)
[2022-01-21] MEDS: ENOXAPARIN SOD 40 MG/0.4 ML SYRINGE SC SCH (10:52)
[2022-01-21] MEDS: INSULIN 70/30 1unit/0.01ml Susp (100units/ml) SC SCH ×2 (11:07→22:18)
[2022-01-21 13:00] VITALS: BP 162/95
[2022-01-21 17:00] VITALS: BP 136/76
[2022-01-21 20:00] VITALS: BP 112/79
[2022-01-22] MEDS: MEPERIDINE HCL (25 MG/ML) 1ML VIAL IV PRN ×6 (03:36→21:57)
[2022-01-22 05:00] VITALS: BP 150/84
[2022-01-22] MEDS: InsuLIN REG 1unit/0.01ml Soln (100units/ml) SC SCH ×4 (06:00→20:10)
[2022-01-22] MEDS: ACCU-CHEK COMFORT CURVE STRIP VI SCH ×4 (06:06→17:52)
[2022-01-22] MEDS: SODIUM CHLOR 0.9% PF (SALINE LOCK) 10ML VIAL/SYR IV SCH ×5 (06:06→22:00)
[2022-01-22 06:46] LABS: BUN/Creatinine Ratio 21.1; Calcium 8.4 mg/dL (8.5-10.1); Potassium 4.1 mmol/L (3.5-5.1)
[2022-01-22 06:52] LABS: Basophils # (auto) 0.1 10 ^3/uL (0-0.2); Basophils % (auto) 0.6 % (0.0-2.0); Eosinophils # (auto) 0.7 10 ^3/uL (0-0.8); Eosinophils % (auto) 4.2 % (0.0-7.0); Hematocrit 38.7 % (41.0-53.0); Hemoglobin 13.3 g/dL (13.5-17.5); Lymphocytes # (auto) 2.4 10 ^3/uL (0.4-5.4); Lymphocytes % (auto) 13.5 % (10.0-50.0); Mean Corpuscular Hgb Conc. 34.5 g/dL (32.0-36.0); Mean Corpuscular Volume 86.9 fL (80.0-100.0); Monocytes # (auto) 1.3 10 ^3/uL (0-1.3); Monocytes % (auto) 7.2 % (0.0-12.0); Neutrophils # (auto) 13.2 10 ^3/uL (1.6-8.6); Neutrophils % (auto) 74.5 % (37.0-80.0); Red Blood Cells 4.45 10^6/uL (4.5-5.90); Red Cell Distribution Width 13.6 % (11.8-14.3); White Blood Cell 17.7 10^3/uL (4.4-10.8)
[2022-01-22 09:00] VITALS: BP 165/82
[2022-01-22] MEDS: VANCOMYCIN 1GM/250ML 250 ML IV SCH ×2 (09:20→20:00)
[2022-01-22] MEDS: INSULIN 70/30 1unit/0.01ml Susp (100units/ml) SC SCH ×2 (10:40→21:58)
[2022-01-22] MEDS: LISINOPRIL 20 MG TAB PO SCH (11:09)
[2022-01-22] MEDS: ENOXAPARIN SOD 40 MG/0.4 ML SYRINGE SC SCH (11:10)
[2022-01-22] MEDS: amLODIPine BESYLATE 5 MG TAB PO SCH (11:11)
[2022-01-22] MEDS: DAPAGLIFLOZIN 5 MG TAB PO SCH (11:11)
[2022-01-22 13:00] VITALS: BP 141/94
[2022-01-22] MEDS: ERGOCALCIFEROL 50,000 UNIT(1.25MG) CAP PO SCH (13:00)
[2022-01-22 17:14] VITALS: BP 156/91
[2022-01-22 20:00] VITALS: BP 146/79
[2022-01-23] MEDS: MEPERIDINE HCL (25 MG/ML) 1ML VIAL IV PRN ×3 (01:48→14:12)
[2022-01-23] MEDS: InsuLIN REG 1unit/0.01ml Soln (100units/ml) SC SCH ×4 (06:00→18:26)
[2022-01-23 06:02] VITALS: BP 132/82
[2022-01-23] MEDS: ACCU-CHEK COMFORT CURVE STRIP VI SCH ×4 (06:28→17:59)
[2022-01-23] MEDS: SODIUM CHLOR 0.9% PF (SALINE LOCK) 10ML VIAL/SYR IV SCH ×3 (06:28→22:29)
[2022-01-23 09:00] VITALS: BP 158/85
[2022-01-23] MEDS: VANCOMYCIN 1GM/250ML 250 ML IV SCH ×2 (09:08→22:18)
[2022-01-23] MEDS: DAPAGLIFLOZIN 5 MG TAB PO SCH (10:07)
[2022-01-23] MEDS: amLODIPine BESYLATE 5 MG TAB PO SCH (10:07)
[2022-01-23] MEDS: LISINOPRIL 20 MG TAB PO SCH (10:08)
[2022-01-23] MEDS: ENOXAPARIN SOD 40 MG/0.4 ML SYRINGE SC SCH (10:08)
[2022-01-23] MEDS: INSULIN 70/30 1unit/0.01ml Susp (100units/ml) SC SCH ×2 (10:14→22:29)
[2022-01-23 13:00] VITALS: BP 128/81
[2022-01-23] MEDS ORDERED: oxyCODONE ER 10 MG TAB PO ONE (16:00)
[2022-01-23 17:00] VITALS: BP 132/84
[2022-01-23] MEDS: Pro-Stat SF 30ml Vanilla PO SCH (18:26)
[2022-01-23 22:00] VITALS: BP 144/92
[2022-01-23] MEDS: oxyCODONE ER 20 MG TAB PO SCH ×2 (22:18→23:18)
[2022-01-24 05:00] VITALS: BP 137/82
[2022-01-24] MEDS: InsuLIN REG 1unit/0.01ml Soln (100units/ml) SC SCH ×4 (06:00→18:30)
[2022-01-24 06:24] LABS: Potassium 4.1 mmol/L (3.5-5.1)
[2022-01-24] MEDS: ACCU-CHEK COMFORT CURVE STRIP VI SCH ×4 (06:26→18:24)
[2022-01-24 06:29] LABS: BUN/Creatinine Ratio 23.7; Calcium 9.3 mg/dL (8.5-10.1)
[2022-01-24 06:35] LABS: Basophils # (auto) 0.2 10 ^3/uL (0-0.2); Eosinophils # (auto) 0.6 10 ^3/uL (0-0.8); Eosinophils % (auto) 3.9 % (0.0-7.0); Hematocrit 39.8 % (41.0-53.0); Hemoglobin 13.5 g/dL (13.5-17.5); Lymphocytes # (auto) 2.5 10 ^3/uL (0.4-5.4); Mean Corpuscular Hemoglobin 29.3 pg (28.0-32.0); Mean Corpuscular Hgb Conc. 33.8 g/dL (32.0-36.0); Mean Corpuscular Volume 86.7 fL (80.0-100.0); Monocytes # (auto) 1.1 10 ^3/uL (0-1.3); Neutrophils # (auto) 11.3 10 ^3/uL (1.6-8.6); Neutrophils % (auto) 72.1 % (37.0-80.0); Nucleated Red Blood Cells % 0.1 %; Red Blood Cells 4.58 10^6/uL (4.5-5.90); Red Cell Distribution Width 13.6 % (11.8-14.3); White Blood Cell 15.7 10^3/uL (4.4-10.8)
[2022-01-24] MEDS: Pro-Stat SF 30ml Vanilla PO SCH ×2 (08:00→18:00)
[2022-01-24 09:00] VITALS: BP 167/92
[2022-01-24] MEDS: VANCOMYCIN 1GM/250ML 250 ML IV SCH (09:35)
[2022-01-24] MEDS: SODIUM CHLOR 0.9% PF (SALINE LOCK) 10ML VIAL/SYR IV SCH (10:00)
[2022-01-24] MEDS: ENOXAPARIN SOD 40 MG/0.4 ML SYRINGE SC SCH (10:00)
[2022-01-24] MEDS: amLODIPine BESYLATE 5 MG TAB PO SCH (10:00)
[2022-01-24] MEDS: LISINOPRIL 20 MG TAB PO SCH (10:00)
[2022-01-24] MEDS: INSULIN 70/30 1unit/0.01ml Susp (100units/ml) SC SCH (10:42)
[2022-01-24] MEDS: DAPAGLIFLOZIN 5 MG TAB PO SCH (10:50)
[2022-01-24 13:00] VITALS: BP 118/69
[2022-01-24 17:00] VITALS: BP 129/84
== END 2022-01-24 19:30 | disposition home health service (06) | DRG 853 ==
LOC: ER 20:05 → TELE 01-14 08:15 → TELE-WESTW 01-14 12:17 → WEST WING 01-22 21:17
PROVIDERS: ADMIT Internal Medicine; ATTEND Internal Medicine
PROC: 0QBP0Z2 Excision of Left Metatarsal, Sesamoid Bone(s) 1st Toe, Open Approach (ICD-10-PCS; 2022-01-15)
PROC: 5A09457 Assistance with Respiratory Ventilation, 24-96 Consecutive Hours, Continuous Positive Airway Pressure (ICD-10-PCS; 2022-01-15)
PROC: 0Y6Q0Z0 Detachment at Left 1st Toe, Complete, Open Approach (ICD-10-PCS; principal; 2022-01-15 07:37)
PROC: 02HV33Z Insertion of Infusion Device into Superior Vena Cava, Percutaneous Approach (ICD-10-PCS; 2022-01-17)
PROC: B548ZZA Ultrasonography of Superior Vena Cava, Guidance (ICD-10-PCS; 2022-01-17)
DX: A41.9 Sepsis, unspecified organism (principal); M72.6 Necrotizing fasciitis; E11.10 Type 2 diabetes mellitus with ketoacidosis without coma; G93.41 Metabolic encephalopathy; N17.9 Acute kidney failure, unspecified; I96 Gangrene, not elsewhere classified; L02.612 Cutaneous abscess of left foot; M86.172 Other acute osteomyelitis, left ankle and foot; J96.10 Chronic respiratory failure, unspecified whether with hypoxia or hypercapnia; E87.1 Hypo-osmolality and hyponatremia; R65.20 Severe sepsis without septic shock; L03.032 Cellulitis of left toe; Z20.822 Contact with and (suspected) exposure to COVID-19; E86.0 Dehydration; N18.31 Chronic kidney disease, stage 3a; I12.9 Hypertensive chronic kidney disease with stage 1 through stage 4 chronic kidney disease, or unspecified chronic kidney disease; E66.01 Morbid (severe) obesity due to excess calories; G89.29 Other chronic pain; R91.1 Solitary pulmonary nodule; E11.22 Type 2 diabetes mellitus with diabetic chronic kidney disease; E11.69 Type 2 diabetes mellitus with other specified complication; Z68.37 Body mass index [BMI] 37.0-37.9, adult; Z80.0 Family history of malignant neoplasm of digestive organs; Z83.3 Family history of diabetes mellitus; Z85.038 Personal history of other malignant neoplasm of large intestine; Z86.73 Personal history of transient ischemic attack (TIA), and cerebral infarction without residual deficits; Z87.442 Personal history of urinary calculi; Z90.49 Acquired absence of other specified parts of digestive tract
CPT/HCPCS: 36415; 36569; 36600; 51702; 70450; 71045; 71250; 73700; 80048; 80053; 80202; 81001; 82010; 82043; 82306; 82565; 82570; 82805; 82962; 83036; 83605; 83735; 83880; 83930; 83935; 84100; 84132; 84156; 84295; 84300; 84484; 85007; 85025; 85027; 85610; 85652; 85730; 86141; 86850; 86900; 86901; 87040; 87070; 87075; 87076; 87077; 87186; 87205; 87426; 93005; 93925; 93970; 94660; 96365; 96366; 96367; 96368; 96375; 97110; 97116; 97530; 99291; G0378; J0690; J1815; J1885; J2185; J2250; J2543

== ENCOUNTER 2022-02-01 10:09 | Emergency (ER) | payer BC, MEDICARE ==
[~2022-02-01] VITALS: Ht 177.8 cm; Wt 122.5 kg
[2022-02-01 11:54] LABS: Basophils # (auto) 0.1 10 ^3/uL (0-0.2); Basophils % (auto) 0.5 % (0.0-2.0); Eosinophils # (auto) 0.6 10 ^3/uL (0-0.8); Eosinophils % (auto) 5.4 % (0.0-7.0); Hematocrit 35.4 % (41.0-53.0); Lymphocytes # (auto) 1.7 10 ^3/uL (0.4-5.4); Lymphocytes % (auto) 14.5 % (10.0-50.0); Mean Corpuscular Hemoglobin 29.4 pg (28.0-32.0); Mean Corpuscular Volume 86.6 fL (80.0-100.0); Monocytes # (auto) 0.9 10 ^3/uL (0-1.3); Monocytes % (auto) 7.7 % (0.0-12.0); Neutrophils # (auto) 8.3 10 ^3/uL (1.6-8.6); Neutrophils % (auto) 71.9 % (37.0-80.0); Red Blood Cells 4.09 10^6/uL (4.5-5.90); White Blood Cell 11.6 10^3/uL (4.4-10.8)
[2022-02-01 11:56] LABS: Albumin 2.4 g/dL (3.4-5.0); Calcium 9.6 mg/dL (8.5-10.1); Potassium 4.6 mmol/L (3.5-5.1)
[2022-02-01 11:59] LABS: Bilirubin, Total 0.4 mg/dL (0.2-1.0); Total Protein 8.7 g/dL (6.4-8.2)
[2022-02-01 12:02] VITALS: BP 127/65
[2022-02-01 12:11] LABS: INR 1.09 (0.9-1.15)
[2022-02-01] MEDS ORDERED: LIDOCAINE 1% (LOCAL ANESTH.) PF 5ml SDV ID ONE (13:00)
[2022-02-01] MEDS ORDERED: SODIUM CHLOR 0.9% PF (SALINE LOCK) 10ML VIAL/SYR IV SCH (22:00)
== END 2022-02-01 13:31 | disposition home or self-care (01) ==
LOC: ER 10:09
DX: T82.868A Thrombosis due to vascular prosthetic devices, implants and grafts, initial encounter (principal); D72.829 Elevated white blood cell count, unspecified; E11.9 Type 2 diabetes mellitus without complications; E78.5 Hyperlipidemia, unspecified; I10 Essential (primary) hypertension; Z86.73 Personal history of transient ischemic attack (TIA), and cerebral infarction without residual deficits; Z87.442 Personal history of urinary calculi
CPT/HCPCS: 36415; 36569; 71045; 80053; 85025; 85610; 85730; 99285; C1751; J7050; 36556

== ENCOUNTER 2022-02-04 14:40 | Inpatient (IN) | payer BC, MEDICARE ==
[~2022-02-04] VITALS: Ht 177.8 cm; Wt 124.0 kg
[2022-02-04] MEDS ORDERED: MORPHINE SULFATE 4 MG/ML SYR/VIAL IV ONE (15:00)
[2022-02-04] MEDS ORDERED: ONDANSETRON HCL 4 MG/2 ML VIAL IV ONE (15:00)
[2022-02-04] MEDS ORDERED: SODIUM CHLORIDE 0.9% 500 ML IV ONE (15:00)
[2022-02-04 15:37] LABS: Albumin 2.2 g/dL (3.4-5.0); BUN/Creatinine Ratio 23.9; Calcium 8.9 mg/dL (8.5-10.1); Potassium 4.2 mmol/L (3.5-5.1)
[2022-02-04 15:40] LABS: Bilirubin, Total 0.4 mg/dL (0.2-1.0); Total Protein 7.9 g/dL (6.4-8.2)
[2022-02-04 15:47] LABS: INR 1.1 (0.9-1.15); Partial Thromboplastin Time 33.9 sec (23.6-33.0)
[2022-02-04] MEDS ORDERED: HYDROmorphone HCL 2 MG/ML VL IV ONE ×2 (16:00→20:30)
[2022-02-04 17:01] LABS: Basophils # (auto) 0.2 10 ^3/uL (0-0.2); Basophils % (auto) 2.1 % (0.0-2.0); Eosinophils # (auto) 0.8 10 ^3/uL (0-0.8); Eosinophils % (auto) 7.2 % (0.0-7.0); Lymphocytes # (auto) 1.5 10 ^3/uL (0.4-5.4); Lymphocytes % (auto) 13.4 % (10.0-50.0); Mean Corpuscular Hemoglobin 28.8 pg (28.0-32.0); Mean Corpuscular Hgb Conc. 33.4 g/dL (32.0-36.0); Mean Corpuscular Volume 86.1 fL (80.0-100.0); Neutrophils # (auto) 7.8 10 ^3/uL (1.6-8.6); Neutrophils % (auto) 68.3 % (37.0-80.0); Nucleated Red Blood Cells % 0.1 %; Red Blood Cells 3.83 10^6/uL (4.5-5.90); Red Cell Distribution Width 13.5 % (11.8-14.3); White Blood Cell 11.4 10^3/uL (4.4-10.8)
[2022-02-04] MEDS ORDERED: MORPHINE SULFATE INJECTION 2 MG/ML SYRG IV PRN (17:15)
[2022-02-04] MEDS ORDERED: NITROGLYCERIN 0.4 MG SL TAB SL PRN (17:15)
[2022-02-04] MEDS ORDERED: ONDANSETRON HCL 4 MG/2 ML VIAL IV PRN (18:15)
[2022-02-04] MEDS ORDERED: DOCUSATE SOD 100 MG CAP PO PRN (18:15)
[2022-02-04] MEDS ORDERED: METOCLOPRAMIDE HCL 5MG/ml INJ 2ml VIAL IV PRN (18:15)
[2022-02-04] MEDS ORDERED: hydrALAZINE HCL 20 MG/ML VL IV PRN (18:15)
[2022-02-04] MEDS ORDERED: SUCRALFATE 1 GM/10 ML ORAL SUSP PO ONE (18:15)
[2022-02-04] MEDS ORDERED: LORazepam 0.5 MG TAB PO PRN (18:15)
[2022-02-04] MEDS ORDERED: SODIUM CHLORIDE 0.9% 1,000 ML IV SCH (18:15)
[2022-02-04] MEDS ORDERED: IPRATROPIUM BROM 0.5 MG/2.5ML INH SOL NEB ONE (18:15)
[2022-02-04] MEDS ORDERED: LACTULOSE 20Gm/30ML SOLN PO PRN (18:15)
[2022-02-04] MEDS ORDERED: DEXTROSE (50%) 50ML SYRG IV PRN (18:15)
[2022-02-04] MEDS ORDERED: CLINDAMYCIN 900MG IV 50 ML IV ONE (19:30)
[2022-02-04 19:44] LABS: Phosphorus 4.1 mg/dL (2.5-4.90)
[2022-02-04] MEDS: AMPICILLIN & SULBACTAM SODIUM 3 GM in SODIUM CHL 0.9% 100 ML IV SCH (20:51)
[2022-02-04] MEDS ORDERED: ACETYLCYSTEINE 10 %(100MG/ML) SOL 4ML NEB SCH (22:00)
[2022-02-04] MEDS ORDERED: IPRATROPIUM BROM 0.5 MG/2.5ML INH SOL NEB SCH (22:00)
[2022-02-04] MEDS: ATORVASTATIN 20 MG TAB PO SCH (22:52)
[2022-02-04] MEDS: SUCRALFATE 1 GM/10 ML ORAL SUSP PO SCH (22:52)
[2022-02-04] MEDS: GABAPENTIN 300 MG CAP PO SCH (22:52)
[2022-02-04] MEDS: HYDROcodone-ACET 5/325MG TAB PO PRN (23:56)
[2022-02-05] VITALS (7 sets, daily range): BP systolic 84–168; BP diastolic 62–92
[2022-02-05] MEDS: ACCU-CHEK COMFORT CURVE STRIP VI SCH ×4 (00:24→21:52)
[2022-02-05] MEDS: InsuLIN REG 1unit/0.01ml Soln (100units/ml) SC SCH ×4 (00:25→17:58)
[2022-02-05] MEDS: MORPHINE SULFATE INJECTION 2 MG/ML SYRG IV PRN ×3 (00:37→12:06)
[2022-02-05] MEDS: AMPICILLIN & SULBACTAM SODIUM 3 GM in SODIUM CHL 0.9% 100 ML IV SCH ×2 (00:55→06:20)
[2022-02-05] MEDS ORDERED: KETOROLAC TROMETH 30 MG/ML 1ML VIAL IV ONE (01:30)
[2022-02-05] MEDS: CLINDAMYCIN 900MG IV 50 ML IV SCH ×3 (02:00→19:33)
[2022-02-05] MEDS: GABAPENTIN 300 MG CAP PO SCH ×3 (06:20→21:14)
[2022-02-05] MEDS: SUCRALFATE 1 GM/10 ML ORAL SUSP PO SCH ×4 (06:20→21:28)
[2022-02-05 06:21] LABS: Basophils # (auto) 0.1 10 ^3/uL (0-0.2); Basophils % (auto) 0.6 % (0.0-2.0); Eosinophils % (auto) 11.1 % (0.0-7.0); Hematocrit 29.4 % (41.0-53.0); Hemoglobin 9.9 g/dL (13.5-17.5); Lymphocytes # (auto) 1.8 10 ^3/uL (0.4-5.4); Lymphocytes % (auto) 20.4 % (10.0-50.0); Mean Corpuscular Hgb Conc. 33.6 g/dL (32.0-36.0); Mean Corpuscular Volume 86.4 fL (80.0-100.0); Monocytes % (auto) 11.4 % (0.0-12.0); Neutrophils # (auto) 4.9 10 ^3/uL (1.6-8.6); Neutrophils % (auto) 56.5 % (37.0-80.0); Red Cell Distribution Width 13.6 % (11.8-14.3); White Blood Cell 8.7 10^3/uL (4.4-10.8)
[2022-02-05 06:41] LABS: Calcium 8.1 mg/dL (8.5-10.1); Phosphorus 4.2 mg/dL (2.5-4.90)
[2022-02-05 06:46] LABS: INR 1.13 (0.9-1.15); Partial Thromboplastin Time 35.4 sec (23.6-33.0)
[2022-02-05 06:52] LABS: Albumin 1.8 g/dL (3.4-5.0); BUN/Creatinine Ratio 18.6; Bilirubin, Total 0.3 mg/dL (0.2-1.0); CRP High Sensitivity 9.99 mg/dL (< 0.3); Magnesium 2.2 mg/dL (1.6-2.6); Uric Acid 3.2 mg/dL (3.5-7.2)
[2022-02-05] MEDS: HYDROcodone-ACET 5/325MG TAB PO PRN (08:52)
[2022-02-05] MEDS ORDERED: VANCOMYCIN PER PHARMACY 0 MG IV SCH (09:30)
[2022-02-05] MEDS ORDERED: BENAZEPRIL HCL 10 MG TAB PO SCH (10:00)
[2022-02-05] MEDS ORDERED: hydrALAZINE HCL 20 MG/ML VL IV PRN (10:00)
[2022-02-05] MEDS: ASPirin 81 mg TAB PO SCH (11:16)
[2022-02-05] MEDS: CYANOCOBALAMIN 500 MCG TAB PO SCH (11:16)
[2022-02-05] MEDS: ENOXAPARIN SOD 40 MG/0.4 ML SYRINGE SC SCH (11:17)
[2022-02-05] MEDS: CHOLECALCIFEROL (VITD3) 2,000 UNIT CAP/TAB PO SCH (11:17)
[2022-02-05] MEDS: PIPERACILLIN-TAZOB 3.375GM 100 ML IV SCH ×3 (11:59→21:15)
[2022-02-05] MEDS ORDERED: ACCU-CHEK COMFORT CURVE STRIP VI SCH (12:00)
[2022-02-05] MEDS ORDERED: oxyCODONE HCL 5MG TAB PO PRN (12:45)
[2022-02-05] MEDS: MEPERIDINE HCL (25 MG/ML) 1ML VIAL IV PRN ×3 (14:31→22:51)
[2022-02-05] MEDS: VANCOMYCIN 1GM/250ML 250 ML IV SCH ×2 (15:11→23:01)
[2022-02-05] MEDS ORDERED: InsuLIN REG 1unit/0.01ml Soln (100units/ml) SC SCH ×2 (17:00→22:00)
[2022-02-05] MEDS: LACTATED RINGER'S 1,000 ML IV SCH (17:57)
[2022-02-05] MEDS: ATORVASTATIN 20 MG TAB PO SCH (21:14)
[2022-02-05] MEDS: INSULIN LANTUS (GLARGINE) 1 /0.01ml (100units/ml) SC SCH (21:54)
[2022-02-06] MEDS: InsuLIN REG 1unit/0.01ml Soln (100units/ml) SC SCH ×4 (00:35→18:14)
[2022-02-06] MEDS: LACTATED RINGER'S 1,000 ML IV SCH ×2 (00:58→12:06)
[2022-02-06] MEDS: CLINDAMYCIN 900MG IV 50 ML IV SCH ×3 (02:32→18:10)
[2022-02-06] MEDS: MEPERIDINE HCL (25 MG/ML) 1ML VIAL IV PRN ×6 (02:52→20:32)
[2022-02-06 03:07] LABS: Urine Bacteria NONE SEEN /hpf (None Seen); Urine Blood Negative /uL (Negative); Urine Specific Gravity 1.014 (1.001-1.035); Urine WBC 1 /hpf (0 - 3)
[2022-02-06] MEDS: PIPERACILLIN-TAZOB 3.375GM 100 ML IV SCH ×4 (04:13→21:58)
[2022-02-06 05:00] VITALS: BP 169/90
[2022-02-06 05:40] LABS: Basophils # (auto) 0.1 10 ^3/uL (0-0.2); Basophils % (auto) 0.8 % (0.0-2.0); Eosinophils # (auto) 0.7 10 ^3/uL (0-0.8); Eosinophils % (auto) 8.7 % (0.0-7.0); Hematocrit 28.4 % (41.0-53.0); Hemoglobin 10.2 g/dL (13.5-17.5); Lymphocytes # (auto) 1.5 10 ^3/uL (0.4-5.4); Mean Corpuscular Hemoglobin 30.2 pg (28.0-32.0); Mean Corpuscular Hgb Conc. 35.8 g/dL (32.0-36.0); Mean Corpuscular Volume 84.4 fL (80.0-100.0); Monocytes # (auto) 0.8 10 ^3/uL (0-1.3); Monocytes % (auto) 10.5 % (0.0-12.0); Neutrophils # (auto) 4.9 10 ^3/uL (1.6-8.6); Red Blood Cells 3.36 10^6/uL (4.5-5.90); Red Cell Distribution Width 13.5 % (11.8-14.3)
[2022-02-06 05:52] LABS: Potassium 3.9 mmol/L (3.5-5.1)
[2022-02-06 06:04] LABS: BUN/Creatinine Ratio 19.5; Calcium 8.7 mg/dL (8.5-10.1)
[2022-02-06 06:07] LABS: Bilirubin, Total 0.3 mg/dL (0.2-1.0); Total Protein 7.3 g/dL (6.4-8.2)
[2022-02-06] MEDS: ACCU-CHEK COMFORT CURVE STRIP VI SCH ×3 (06:10→17:33)
[2022-02-06] MEDS: SUCRALFATE 1 GM/10 ML ORAL SUSP PO SCH ×4 (06:10→21:56)
[2022-02-06] MEDS: GABAPENTIN 300 MG CAP PO SCH ×3 (06:10→21:57)
[2022-02-06] MEDS ORDERED: ceFAZolin 1GM/50ML 100 ML IV ONE (08:17)
[2022-02-06] MEDS ORDERED: fentaNYL CITRATE 100 MCG/2 ML VL ONE (08:34)
[2022-02-06] MEDS ORDERED: PROPOFOL 10 MG/ML 20 ML IV ONE (08:34)
[2022-02-06] MEDS ORDERED: SODIUM CHLORIDE LOCK 10 ML ONE (08:34)
[2022-02-06] MEDS ORDERED: ONDANSETRON HCL 4 MG/2 ML VIAL ONE (08:34)
[2022-02-06] MEDS ORDERED: MIDAZOLAM HCL 2MG/2ML 2ml VIAL (1mg/ml) ONE (08:34)
[2022-02-06] MEDS ORDERED: ROPIVACAINE 0.5% (5MG/ML) 20ML AMPULE IJ ONE (08:57)
[2022-02-06] MEDS ORDERED: ceFAZolin 1GM VL ONE (08:57)
[2022-02-06] MEDS ORDERED: HYDROmorphone HCL 2 MG/ML VL IV PRN (09:15)
[2022-02-06] MEDS ORDERED: ACCU-CHEK COMFORT CURVE STRIP VI ONE (09:15)
[2022-02-06] MEDS ORDERED: METOCLOPRAMIDE HCL 5MG/ml INJ 2ml VIAL IV PRN (09:15)
[2022-02-06] MEDS ORDERED: MORPHINE SULFATE 4 MG/ML SYR/VIAL IV PRN (09:15)
[2022-02-06] MEDS: ASPirin 81 mg TAB PO SCH (10:00)
[2022-02-06] MEDS: ENOXAPARIN SOD 40 MG/0.4 ML SYRINGE SC SCH (10:00)
[2022-02-06] MEDS: CYANOCOBALAMIN 500 MCG TAB PO SCH (10:00)
[2022-02-06] MEDS: CHOLECALCIFEROL (VITD3) 2,000 UNIT CAP/TAB PO SCH (10:00)
[2022-02-06] MEDS ORDERED: VAN500I IV (11:08)
[2022-02-06] MEDS: VANCOMYCIN 1GM/250ML 250 ML IV SCH ×2 (13:06→23:13)
[2022-02-06 17:00] VITALS: BP 126/86
[2022-02-06 21:36] VITALS: BP 145/85
[2022-02-06] MEDS: ATORVASTATIN 20 MG TAB PO SCH (21:57)
[2022-02-06] MEDS: INSULIN LANTUS (GLARGINE) 1 /0.01ml (100units/ml) SC SCH (22:05)
[2022-02-07] MEDS: ACCU-CHEK COMFORT CURVE STRIP VI SCH ×2 (00:09→06:03)
[2022-02-07] MEDS: InsuLIN REG 1unit/0.01ml Soln (100units/ml) SC SCH ×2 (00:12→06:12)
[2022-02-07] MEDS: MEPERIDINE HCL (25 MG/ML) 1ML VIAL IV PRN ×4 (00:36→13:18)
[2022-02-07] MEDS: LACTATED RINGER'S 1,000 ML IV SCH (01:15)
[2022-02-07] MEDS: PIPERACILLIN-TAZOB 3.375GM 100 ML IV SCH (01:15)
[2022-02-07] MEDS: CLINDAMYCIN 900MG IV 50 ML IV SCH (02:01)
[2022-02-07 05:00] VITALS: BP 136/87
[2022-02-07] MEDS: GABAPENTIN 300 MG CAP PO SCH ×2 (06:03→13:17)
[2022-02-07 06:04] LABS: Potassium 3.8 mmol/L (3.5-5.1)
[2022-02-07 06:08] LABS: BUN/Creatinine Ratio 15.5; Calcium 8.6 mg/dL (8.5-10.1)
[2022-02-07] MEDS: SUCRALFATE 1 GM/10 ML ORAL SUSP PO SCH ×2 (06:22→11:30)
[2022-02-07 08:00] VITALS: BP 152/79
[2022-02-07] MEDS ORDERED: INSULIN LANTUS (GLARGINE) 1 /0.01ml (100units/ml) SC ONE (08:45)
[2022-02-07] MEDS ORDERED: DEXTROSE (50%) 50ML SYRG IV PRN (09:00)
[2022-02-07] MEDS: VANCOMYCIN 1GM/250ML 250 ML IV SCH (09:07)
[2022-02-07] MEDS: CHOLECALCIFEROL (VITD3) 2,000 UNIT CAP/TAB PO SCH (09:07)
[2022-02-07] MEDS: ENOXAPARIN SOD 40 MG/0.4 ML SYRINGE SC SCH (09:07)
[2022-02-07] MEDS: ASPirin 81 mg TAB PO SCH (09:07)
[2022-02-07] MEDS: CYANOCOBALAMIN 500 MCG TAB PO SCH (09:07)
[2022-02-07] MEDS ORDERED: InsuLIN REG 1unit/0.01ml Soln (100units/ml) SC SCH ×2 (11:30→22:00)
[2022-02-07] MEDS ORDERED: ACCU-CHEK COMFORT CURVE STRIP VI SCH (11:30)
[2022-02-07 13:18] VITALS: BP 160/83
[2022-02-07] MEDS ORDERED: Juven Fruit Punch Powder PACKET 28.8gm PO SCH (18:00)
[2022-02-07] MEDS ORDERED: INSULIN LANTUS (GLARGINE) 1 /0.01ml (100units/ml) SC SCH (22:00)
== END 2022-02-07 15:00 | disposition home health service (06) | DRG 637 ==
LOC: ER 14:40 → OVERFLOW 17:03 → CENTRAL 22:00
PROVIDERS: ADMIT Hospitalist; ATTEND Hospitalist
PROC: 0Y9N0ZZ Drainage of Left Foot, Open Approach (ICD-10-PCS; principal; 2022-02-06 09:12)
DX: E11.69 Type 2 diabetes mellitus with other specified complication (principal); M72.6 Necrotizing fasciitis; M86.172 Other acute osteomyelitis, left ankle and foot; E66.2 Morbid (severe) obesity with alveolar hypoventilation; L03.116 Cellulitis of left lower limb; M86.672 Other chronic osteomyelitis, left ankle and foot; N17.9 Acute kidney failure, unspecified; L97.529 Non-pressure chronic ulcer of other part of left foot with unspecified severity; J44.9 Chronic obstructive pulmonary disease, unspecified; B95.0 Streptococcus, group A, as the cause of diseases classified elsewhere; E11.40 Type 2 diabetes mellitus with diabetic neuropathy, unspecified; E11.621 Type 2 diabetes mellitus with foot ulcer; Z20.822 Contact with and (suspected) exposure to COVID-19; E11.65 Type 2 diabetes mellitus with hyperglycemia; E11.21 Type 2 diabetes mellitus with diabetic nephropathy; E78.5 Hyperlipidemia, unspecified; I10 Essential (primary) hypertension; Z79.4 Long term (current) use of insulin; Z80.0 Family history of malignant neoplasm of digestive organs; Z82.49 Family history of ischemic heart disease and other diseases of the circulatory system; Z83.3 Family history of diabetes mellitus; Z85.038 Personal history of other malignant neoplasm of large intestine; Z86.73 Personal history of transient ischemic attack (TIA), and cerebral infarction without residual deficits; Z87.39 Personal history of other diseases of the musculoskeletal system and connective tissue; Z87.442 Personal history of urinary calculi; Z68.37 Body mass index [BMI] 37.0-37.9, adult; Z79.899 Other long term (current) drug therapy; Z89.412 Acquired absence of left great toe; Z90.49 Acquired absence of other specified parts of digestive tract
CPT/HCPCS: 36415; 73700; 80048; 80053; 80061; 80202; 81001; 82550; 82728; 82962; 83690; 83735; 83880; 84100; 84443; 84484; 84550; 85025; 85379; 85610; 85652; 85730; 86141; 86850; 86900; 86901; 87040; 87070; 87075; 87081; 87205; 87426; 93925; 93970; 96361; 96374; 96375; G0378; J0690; J1815; J1885; J2250; J2405; J2543; J2704; J3490

== ENCOUNTER 2022-03-12 18:57 | Inpatient (IN) | payer MEDICARE, BC ==
[~2022-03-12] VITALS: Ht 177.8 cm; Wt 116.6 kg
[~2022-03-12 18:57] MED LIST changes: +VAN500I IV
[2022-03-12 19:51] LABS: Basophils # (auto) 0.1 10 ^3/uL (0-0.2); Basophils % (auto) 0.7 % (0.0-2.0); Eosinophils # (auto) 0.3 10 ^3/uL (0-0.8); Eosinophils % (auto) 2.2 % (0.0-7.0); Hematocrit 39.1 % (41.0-53.0); Hemoglobin 13.3 g/dL (13.5-17.5); Lymphocytes # (auto) 3.2 10 ^3/uL (0.4-5.4); Mean Corpuscular Hemoglobin 28.8 pg (28.0-32.0); Mean Corpuscular Hgb Conc. 34.1 g/dL (32.0-36.0); Mean Corpuscular Volume 84.4 fL (80.0-100.0); Monocytes # (auto) 0.9 10 ^3/uL (0-1.3); Monocytes % (auto) 7.4 % (0.0-12.0); Neutrophils # (auto) 7.4 10 ^3/uL (1.6-8.6); Neutrophils % (auto) 62.7 % (37.0-80.0); Nucleated Red Blood Cells % 0.1 %; Red Blood Cells 4.63 10^6/uL (4.5-5.90); Red Cell Distribution Width 15.1 % (11.8-14.3); White Blood Cell 11.8 10^3/uL (4.4-10.8)
[2022-03-12 20:10] LABS: Albumin 3.6 g/dL (3.4-5.0); Calcium 9.5 mg/dL (8.5-10.1); Potassium 3.9 mmol/L (3.5-5.1)
[2022-03-12 20:12] LABS: BUN/Creatinine Ratio 20.2; Bilirubin, Total 0.6 mg/dL (0.2-1.0); Total Protein 9.2 g/dL (6.4-8.2)
[2022-03-13] MEDS ORDERED: fentaNYL CITRATE 100 MCG/2 ML VL IV ONE (00:15)
[2022-03-13] MEDS ORDERED: LISINOPRIL 20 MG TAB PO ONE (01:30)
[2022-03-13] MEDS ORDERED: VANCOMYCIN PER PHARMACY 0 MG IV SCH (01:45)
[2022-03-13] MEDS ORDERED: ACETAMINOPHEN 325 MG TAB PO PRN (01:45)
[2022-03-13] MEDS ORDERED: TEMAZEPAM 15 MG CAP PO PRN (01:45)
[2022-03-13] MEDS ORDERED: DEXTROSE (50%) 50ML SYRG IV PRN (01:45)
[2022-03-13] MEDS ORDERED: ONDANSETRON HCL 4 MG/2 ML VIAL IV PRN (01:45)
[2022-03-13] MEDS ORDERED: VANCOMYCIN 1GM/250ML 250 ML IV ONE (02:00)
[2022-03-13] MEDS: cloNIDine HCL 0.1 MG TAB PO PRN (02:59)
[2022-03-13 04:45] VITALS: BP 143/89
[2022-03-13] MEDS ORDERED: INFLUENZA QUAD 2021-2022 0.5 ML SYRG IM ONE (05:30)
[2022-03-13] MEDS: ACCU-CHEK COMFORT CURVE STRIP VI SCH ×4 (06:37→21:43)
[2022-03-13] MEDS: InsuLIN REG 1unit/0.01ml Soln (100units/ml) SC SCH ×4 (06:37→21:48)
[2022-03-13] MEDS: HCTZ 25 MG TAB PO SCH (08:36)
[2022-03-13] MEDS: cefTRIAXone 1GM/50ML D5W 50 ML IV SCH (08:36)
[2022-03-13] MEDS: LISINOPRIL 20 MG TAB PO SCH (08:37)
[2022-03-13] MEDS: ENOXAPARIN SOD 40 MG/0.4 ML SYRINGE SC SCH (08:37)
[2022-03-13 08:38] VITALS: BP 147/92
[2022-03-13] MEDS ORDERED: PANTOPRAZOLE 40 MG TAB PO SCH (10:00)
[2022-03-13] MEDS: MEPERIDINE HCL (25 MG/ML) 1ML VIAL IV PRN ×4 (11:30→21:44)
[2022-03-13] MEDS: ERGOCALCIFEROL 50,000 UNIT(1.25MG) CAP PO SCH (12:00)
[2022-03-13 12:43] VITALS: BP 163/82
[2022-03-13] MEDS ORDERED: NEOMYCIN-BACITRACIN-POLYM 15GM TOP OINT TOP ONE (13:26)
[2022-03-13] MEDS ORDERED: BUPIVACAINE HCL 50 ML ONE (13:26)
[2022-03-13] MEDS ORDERED: SODIUM CHLORIDE LOCK 10 ML ONE (13:29)
[2022-03-13] MEDS ORDERED: ONDANSETRON HCL 4 MG/2 ML VIAL ONE (13:29)
[2022-03-13] MEDS ORDERED: fentaNYL CITRATE 100 MCG/2 ML VL ONE (13:29)
[2022-03-13] MEDS ORDERED: MIDAZOLAM HCL 2MG/2ML 2ml VIAL (1mg/ml) ONE (13:29)
[2022-03-13] MEDS ORDERED: ACCU-CHEK COMFORT CURVE STRIP VI ONE (13:30)
[2022-03-13] MEDS ORDERED: METOCLOPRAMIDE HCL 5MG/ml INJ 2ml VIAL IV PRN (13:30)
[2022-03-13] MEDS ORDERED: MORPHINE SULFATE 4 MG/ML SYR/VIAL IV PRN (13:30)
[2022-03-13] MEDS ORDERED: ceFAZolin 1GM VL ONE (13:37)
[2022-03-13] MEDS ORDERED: ceFAZolin 1GM/50ML 100 ML IV ONE (13:39)
[2022-03-13 13:40] LABS: INR 1.18 (0.9-1.15); Partial Thromboplastin Time 35.9 sec (23.6-33.0)
[2022-03-13] MEDS: HYDROmorphone HCL 2 MG/ML VL IV PRN ×2 (14:45→14:55)
[2022-03-13] MEDS ORDERED: PROPOFOL 10 MG/ML 20 ML IV ONE (15:28)
[2022-03-13] MEDS: VANCOMYCIN 1GM/250ML 250 ML IV SCH (15:54)
[2022-03-13 16:33] VITALS: BP 159/89
[2022-03-13] MEDS: ATORVASTATIN 20 MG TAB PO SCH (21:43)
[2022-03-13 22:00] VITALS: BP 151/85
[2022-03-14] MEDS: MEPERIDINE HCL (25 MG/ML) 1ML VIAL IV PRN ×6 (01:44→22:41)
[2022-03-14] MEDS: VANCOMYCIN 1GM/250ML 250 ML IV SCH ×2 (02:57→14:36)
[2022-03-14 04:38] VITALS: BP 158/94
[2022-03-14 05:41] LABS: Basophils # (auto) 0.1 10 ^3/uL (0-0.2); Basophils % (auto) 0.5 % (0.0-2.0); Eosinophils # (auto) 0.3 10 ^3/uL (0-0.8); Hematocrit 37.9 % (41.0-53.0); Hemoglobin 13.1 g/dL (13.5-17.5); Lymphocytes # (auto) 2.1 10 ^3/uL (0.4-5.4); Lymphocytes % (auto) 20.6 % (10.0-50.0); Mean Corpuscular Hemoglobin 29.3 pg (28.0-32.0); Mean Corpuscular Hgb Conc. 34.6 g/dL (32.0-36.0); Mean Corpuscular Volume 84.7 fL (80.0-100.0); Monocytes # (auto) 0.7 10 ^3/uL (0-1.3); Monocytes % (auto) 6.9 % (0.0-12.0); Nucleated Red Blood Cells % 0.1 %; Red Blood Cells 4.47 10^6/uL (4.5-5.90); Red Cell Distribution Width 14.7 % (11.8-14.3); White Blood Cell 10.1 10^3/uL (4.4-10.8)
[2022-03-14 06:04] LABS: Potassium 3.6 mmol/L (3.5-5.1)
[2022-03-14 06:25] LABS: BUN/Creatinine Ratio 19.1; Bilirubin, Total 0.6 mg/dL (0.2-1.0); CRP High Sensitivity 1.58 mg/dL (< 0.3); Calcium 8.9 mg/dL (8.5-10.1); Magnesium 2.3 mg/dL (1.6-2.6); Total Protein 7.8 g/dL (6.4-8.2)
[2022-03-14] MEDS: ACCU-CHEK COMFORT CURVE STRIP VI SCH ×4 (06:54→21:57)
[2022-03-14] MEDS: InsuLIN REG 1unit/0.01ml Soln (100units/ml) SC SCH ×4 (06:56→21:56)
[2022-03-14 09:00] VITALS: BP 129/75
[2022-03-14] MEDS: HCTZ 25 MG TAB PO SCH (09:32)
[2022-03-14] MEDS: cefTRIAXone 1GM/50ML D5W 50 ML IV SCH (09:32)
[2022-03-14] MEDS: LISINOPRIL 20 MG TAB PO SCH (09:32)
[2022-03-14] MEDS: ENOXAPARIN SOD 40 MG/0.4 ML SYRINGE SC SCH (09:33)
[2022-03-14 13:00] VITALS: BP 167/86
[2022-03-14] MEDS: cloNIDine HCL 0.1 MG TAB PO PRN (15:34)
[2022-03-14 17:00] VITALS: BP 173/93
[2022-03-14 21:36] VITALS: BP 143/101
[2022-03-14] MEDS: ATORVASTATIN 20 MG TAB PO SCH (21:56)
[2022-03-15] MEDS: MEPERIDINE HCL (25 MG/ML) 1ML VIAL IV PRN ×6 (03:01→23:41)
[2022-03-15] MEDS: VANCOMYCIN 1GM/250ML 250 ML IV SCH ×2 (03:01→14:56)
[2022-03-15] MEDS: HYDROcodone-ACET 5/325MG TAB PO PRN (04:10)
[2022-03-15 04:31] VITALS: BP 131/95
[2022-03-15] MEDS: ACCU-CHEK COMFORT CURVE STRIP VI SCH ×4 (06:51→21:53)
[2022-03-15] MEDS: InsuLIN REG 1unit/0.01ml Soln (100units/ml) SC SCH ×4 (06:52→21:56)
[2022-03-15] MEDS: cefTRIAXone 1GM/50ML D5W 50 ML IV SCH (08:46)
[2022-03-15] MEDS: HCTZ 25 MG TAB PO SCH (08:48)
[2022-03-15] MEDS: LISINOPRIL 20 MG TAB PO SCH (08:49)
[2022-03-15] MEDS: ENOXAPARIN SOD 40 MG/0.4 ML SYRINGE SC SCH (08:49)
[2022-03-15 09:00] VITALS: BP 161/95
[2022-03-15] MEDS ORDERED: NIFEdipine ER 30 MG TAB PO ONE (11:00)
[2022-03-15 13:00] VITALS: BP 158/89
[2022-03-15 17:00] VITALS: BP 152/80
[2022-03-15 20:00] VITALS: BP 152/80
[2022-03-15] MEDS: ATORVASTATIN 20 MG TAB PO SCH (21:56)
[2022-03-15 22:00] VITALS: BP 155/83
[2022-03-16] MEDS: VANCOMYCIN 1GM/250ML 250 ML IV SCH ×2 (02:56→15:17)
[2022-03-16] MEDS: MEPERIDINE HCL (25 MG/ML) 1ML VIAL IV PRN ×5 (03:47→21:07)
[2022-03-16 05:00] VITALS: BP 161/93
[2022-03-16] MEDS: InsuLIN REG 1unit/0.01ml Soln (100units/ml) SC SCH ×4 (05:57→21:15)
[2022-03-16] MEDS: ACCU-CHEK COMFORT CURVE STRIP VI SCH ×4 (05:59→21:08)
[2022-03-16 06:06] LABS: Calcium 9.4 mg/dL (8.5-10.1); Potassium 3.4 mmol/L (3.5-5.1)
[2022-03-16 06:08] LABS: BUN/Creatinine Ratio 16.7
[2022-03-16] MEDS: cefTRIAXone 1GM/50ML D5W 50 ML IV SCH (08:21)
[2022-03-16 08:44] VITALS: BP 152/84
[2022-03-16] MEDS: LISINOPRIL 20 MG TAB PO SCH (09:42)
[2022-03-16] MEDS: ENOXAPARIN SOD 40 MG/0.4 ML SYRINGE SC SCH (09:42)
[2022-03-16] MEDS: HCTZ 25 MG TAB PO SCH (09:43)
[2022-03-16] MEDS: NIFEdipine ER 30 MG TAB PO SCH (09:44)
[2022-03-16] MEDS ORDERED: POTASSIUM CHL 20 Meq TABLET PO ONE (11:00)
[2022-03-16 12:33] VITALS: BP 146/78
[2022-03-16 16:50] VITALS: BP 112/73
[2022-03-16] MEDS: ATORVASTATIN 20 MG TAB PO SCH (21:08)
[2022-03-16 22:00] VITALS: BP 143/78
[2022-03-17] MEDS: MEPERIDINE HCL (25 MG/ML) 1ML VIAL IV PRN ×5 (01:27→17:42)
[2022-03-17] MEDS: VANCOMYCIN 1GM/250ML 250 ML IV SCH ×2 (03:17→15:11)
[2022-03-17 05:00] VITALS: BP 155/77
[2022-03-17 06:10] LABS: Basophils # (auto) 0.1 10 ^3/uL (0-0.2); Basophils % (auto) 0.5 % (0.0-2.0); Eosinophils # (auto) 0.3 10 ^3/uL (0-0.8); Eosinophils % (auto) 2.3 % (0.0-7.0); Hemoglobin 13.4 g/dL (13.5-17.5); Lymphocytes # (auto) 2.8 10 ^3/uL (0.4-5.4); Lymphocytes % (auto) 24.2 % (10.0-50.0); Mean Corpuscular Hemoglobin 29.1 pg (28.0-32.0); Mean Corpuscular Hgb Conc. 34.3 g/dL (32.0-36.0); Mean Corpuscular Volume 84.9 fL (80.0-100.0); Monocytes # (auto) 0.8 10 ^3/uL (0-1.3); Monocytes % (auto) 7.4 % (0.0-12.0); Neutrophils # (auto) 7.5 10 ^3/uL (1.6-8.6); Neutrophils % (auto) 65.6 % (37.0-80.0); Nucleated Red Blood Cells % 0.1 %; Red Cell Distribution Width 14.9 % (11.8-14.3); White Blood Cell 11.4 10^3/uL (4.4-10.8)
[2022-03-17] MEDS: InsuLIN REG 1unit/0.01ml Soln (100units/ml) SC SCH ×2 (06:22→12:00)
[2022-03-17] MEDS: ACCU-CHEK COMFORT CURVE STRIP VI SCH ×2 (06:22→11:54)
[2022-03-17 06:24] LABS: Calcium 9.5 mg/dL (8.5-10.1); Potassium 3.5 mmol/L (3.5-5.1)
[2022-03-17 06:30] LABS: BUN/Creatinine Ratio 16.2
[2022-03-17 09:00] VITALS: BP 139/84
[2022-03-17] MEDS: HCTZ 25 MG TAB PO SCH (09:24)
[2022-03-17] MEDS: LISINOPRIL 20 MG TAB PO SCH (09:24)
[2022-03-17] MEDS: ENOXAPARIN SOD 40 MG/0.4 ML SYRINGE SC SCH (09:24)
[2022-03-17] MEDS: cefTRIAXone 1GM/50ML D5W 50 ML IV SCH (09:25)
[2022-03-17] MEDS: NIFEdipine ER 30 MG TAB PO SCH (09:33)
[2022-03-17] MEDS ORDERED: PROBTAB12 OR (10:10)
[2022-03-17] MEDS ORDERED: CLIN-203 PO (10:10)
[2022-03-17] MEDS: HYDROcodone-ACET 5/325MG TAB PO PRN (11:44)
[2022-03-17 13:00] VITALS: BP 139/68
[2022-03-17 17:00] VITALS: BP 138/75
[2022-03-17 17:42] VITALS: BP 138/75
== END 2022-03-17 18:36 | disposition home or self-care (01) | DRG 464 ==
LOC: ER 18:57 → OVERFLOW 03-13 01:34 → CENTRAL 03-13 03:50
PROVIDERS: ADMIT Nurse Practitioner; ATTEND Internal Medicine
PROC: 0JBR0ZZ Excision of Left Foot Subcutaneous Tissue and Fascia, Open Approach (ICD-10-PCS; 2022-03-13)
PROC: 0HRNXK3 Replacement of Left Foot Skin with Nonautologous Tissue Substitute, Full Thickness, External Approach (ICD-10-PCS; principal; 2022-03-13 13:47)
DX: T87.44 Infection of amputation stump, left lower extremity (principal); L97.528 Non-pressure chronic ulcer of other part of left foot with other specified severity; M86.172 Other acute osteomyelitis, left ankle and foot; M86.672 Other chronic osteomyelitis, left ankle and foot; E11.69 Type 2 diabetes mellitus with other specified complication; E11.621 Type 2 diabetes mellitus with foot ulcer; E66.01 Morbid (severe) obesity due to excess calories; I10 Essential (primary) hypertension; Y83.8 Other surgical procedures as the cause of abnormal reaction of the patient, or of later complication, without mention of misadventure at the time of the procedure; L08.9 Local infection of the skin and subcutaneous tissue, unspecified; Z20.822 Contact with and (suspected) exposure to COVID-19; Z82.0 Family history of epilepsy and other diseases of the nervous system; Z80.0 Family history of malignant neoplasm of digestive organs; Z68.36 Body mass index [BMI] 36.0-36.9, adult; Z82.49 Family history of ischemic heart disease and other diseases of the circulatory system; Z83.3 Family history of diabetes mellitus; Z86.73 Personal history of transient ischemic attack (TIA), and cerebral infarction without residual deficits; Z87.442 Personal history of urinary calculi; Z89.412 Acquired absence of left great toe; Z90.49 Acquired absence of other specified parts of digestive tract; Z71.3 Dietary counseling and surveillance
CPT/HCPCS: 36415; 71045; 73700; 80048; 80053; 80202; 82306; 82565; 82962; 83036; 83605; 83735; 84484; 85025; 85610; 85652; 85730; 86141; 87070; 87075; 87076; 87081; 87205; 93005; 96365; 96375; G0378; J0690; J0696; J1815; J2250; J2405; J2704; J3490; Q4126

== ENCOUNTER 2022-05-29 06:10 | Day surgery (SDC) | payer BC, MEDICARE ==
[2022-05-21 15:02] LABS: Basophils # (auto) 0.1 10 ^3/uL (0-0.2); Basophils % (auto) 0.6 % (0.0-2.0); Eosinophils # (auto) 0.2 10 ^3/uL (0-0.8); Eosinophils % (auto) 2.2 % (0.0-7.0); Hematocrit 41.7 % (41.0-53.0); Hemoglobin 13.9 g/dL (13.5-17.5); Lymphocytes # (auto) 2.9 10 ^3/uL (0.4-5.4); Lymphocytes % (auto) 30.2 % (10.0-50.0); Mean Corpuscular Hemoglobin 28.7 pg (28.0-32.0); Mean Corpuscular Hgb Conc. 33.3 g/dL (32.0-36.0); Mean Corpuscular Volume 86.3 fL (80.0-100.0); Monocytes # (auto) 0.9 10 ^3/uL (0-1.3); Monocytes % (auto) 9.5 % (0.0-12.0); Neutrophils # (auto) 5.5 10 ^3/uL (1.6-8.6); Neutrophils % (auto) 57.5 % (37.0-80.0); Nucleated Red Blood Cells % 0.1 %; Red Blood Cells 4.83 10^6/uL (4.5-5.90); White Blood Cell 9.6 10^3/uL (4.4-10.8)
[2022-05-21 15:04] LABS: Urine Bacteria NONE SEEN /hpf (None Seen); Urine Blood Negative /uL (Negative); Urine WBC 1 /hpf (0 - 3)
[2022-05-21 15:26] LABS: Albumin 3.6 g/dL (3.4-5.0); BUN/Creatinine Ratio 21.3; Calcium 9.2 mg/dL (8.5-10.1); Potassium 4.1 mmol/L (3.5-5.1)
[2022-05-21 15:28] LABS: Bilirubin, Total 0.4 mg/dL (0.2-1.0); Total Protein 8.3 g/dL (6.4-8.2)
[2022-05-21 16:36] LABS: INR 1.03 (0.9-1.15); Partial Thromboplastin Time 28.8 sec (23.6-33.0)
[~2022-05-29] VITALS: Ht 177.8 cm; Wt 120.2 kg
[~2022-05-29 06:10] MED LIST changes: +PROBTAB12 OR; -VAN500I IV
[2022-05-29] MEDS ORDERED: ceFAZolin 1GM/50ML 100 ML IV ONE (06:46)
[2022-05-29] MEDS ORDERED: MEPERIDINE HCL (25 MG/ML) 1ML VIAL ONE ×2 (08:20→09:21)
[2022-05-29] MEDS ORDERED: fentaNYL CITRATE 100 MCG/2 ML VL ONE (08:20)
[2022-05-29] MEDS ORDERED: MIDAZOLAM HCL 2MG/2ML 2ml VIAL (1mg/ml) ONE (08:21)
[2022-05-29] MEDS ORDERED: PROPOFOL 10 MG/ML 20 ML IV ONE (08:25)
[2022-05-29] MEDS ORDERED: DexAMETHasone SOD PHOS 10MG/1ML VIAL INJ ONE (08:25)
[2022-05-29] MEDS ORDERED: ceFAZolin 1GM VL ONE (08:33)
[2022-05-29] MEDS ORDERED: ePHEDrine SULFATE 50 MG/ML AMP IV PRN (08:45)
[2022-05-29] MEDS ORDERED: METOCLOPRAMIDE HCL 5MG/ml INJ 2ml VIAL IV PRN (08:45)
[2022-05-29] MEDS ORDERED: MORPHINE SULFATE 4 MG/ML SYR/VIAL IV PRN (08:45)
[2022-05-29] MEDS ORDERED: ONDANSETRON HCL 4 MG/2 ML VIAL IV PRN (08:45)
[2022-05-29] MEDS ORDERED: MIDAZOLAM HCL 2MG/2ML 2ml VIAL (1mg/ml) IV PRN (08:45)
[2022-05-29] MEDS ORDERED: HYDROmorphone HCL 2 MG/ML VL/or syr ONE (08:51)
[2022-05-29] MEDS: HYDROmorphone HCL 2 MG/ML VL/or syr IV PRN ×4 (08:51→09:30)
[2022-05-29] MEDS ORDERED: MEPERIDINE HCL (25 MG/ML) 1ML VIAL IV ONE (09:15)
[2022-05-29] MEDS: hydrALAZINE HCL 20 MG/ML VL IV PRN ×4 (09:15→09:50)
[2022-05-29] MEDS: LABETALOL HCL 5 MG/ML 4ML SYRINGE IV PRN ×2 (09:23→09:38)
[2022-05-29 10:00] VITALS: BP 161/89
== END 2022-05-29 10:10 | disposition home or self-care (01) ==
LOC: SUR 06:10
PROVIDERS: ATTEND Podiatrist Foot & Ankle Surgery
DX: E11.621 Type 2 diabetes mellitus with foot ulcer (principal); L89.893 Pressure ulcer of other site, stage 3; I10 Essential (primary) hypertension; E11.9 Type 2 diabetes mellitus without complications; I25.10 Atherosclerotic heart disease of native coronary artery without angina pectoris; E66.01 Morbid (severe) obesity due to excess calories; G47.30 Sleep apnea, unspecified; Z82.49 Family history of ischemic heart disease and other diseases of the circulatory system; Z68.38 Body mass index [BMI] 38.0-38.9, adult; Z98.890 Other specified postprocedural states; Z79.899 Other long term (current) drug therapy; Z83.3 Family history of diabetes mellitus; Z81.8 Family history of other mental and behavioral disorders; Z20.822 Contact with and (suspected) exposure to COVID-19
CPT/HCPCS: 15004; 15275; 36415; 80053; 81001; 82962; 85025; 85610; 85730; 87070; 87075; 87205; 88305; C1887; J0360; J0690; J1100; J1170; J2175; J2250; J2704; J3010; J3490; Q4126; U0003

== ENCOUNTER → 2022-06-04 | Outpatient (CLI) | payer BC ==
[2022-06-04 10:47] LABS: Basophils # (auto) 0.1 10 ^3/uL (0-0.2); Basophils % (auto) 0.6 % (0.0-2.0); Eosinophils # (auto) 0.3 10 ^3/uL (0-0.8); Eosinophils % (auto) 2.3 % (0.0-7.0); Hematocrit 44.2 % (41.0-53.0); Hemoglobin 14.6 g/dL (13.5-17.5); Lymphocytes # (auto) 4.6 10 ^3/uL (0.4-5.4); Lymphocytes % (auto) 33.7 % (10.0-50.0); Mean Corpuscular Hemoglobin 28.2 pg (28.0-32.0); Mean Corpuscular Volume 85.5 fL (80.0-100.0); Monocytes # (auto) 0.9 10 ^3/uL (0-1.3); Monocytes % (auto) 6.8 % (0.0-12.0); Neutrophils # (auto) 7.7 10 ^3/uL (1.6-8.6); Neutrophils % (auto) 56.6 % (37.0-80.0); Nucleated Red Blood Cells % 0.1 %; Red Blood Cells 5.17 10^6/uL (4.5-5.90); Red Cell Distribution Width 13.7 % (11.8-14.3); White Blood Cell 13.6 10^3/uL (4.4-10.8)
[2022-06-04 11:25] LABS: Albumin 3.5 g/dL (3.4-5.0); Potassium 3.6 mmol/L (3.5-5.1)
[2022-06-04 11:39] LABS: BUN/Creatinine Ratio 18.1; Bilirubin, Total 0.6 mg/dL (0.2-1.0); Calcium 9.2 mg/dL (8.5-10.1); Total Protein 8.2 g/dL (6.4-8.2)
== END | disposition home or self-care (01) ==
LOC: LAB 10:25
PROVIDERS: ATTEND Nurse Practitioner Family
DX: Z00.00 Encounter for general adult medical examination without abnormal findings (principal); E66.01 Morbid (severe) obesity due to excess calories; E11.8 Type 2 diabetes mellitus with unspecified complications; I10 Essential (primary) hypertension
CPT/HCPCS: 36415; 80053; 80061; 83036; 84153; 85025

== ENCOUNTER 2022-09-17 18:42 | Inpatient (IN) | payer BC, MEDICARE ==
[~2022-09-17] VITALS: Ht 177.8 cm; Wt 125.0 kg
[2022-09-17] MEDS ORDERED: VANCOMYCIN PER PHARMACY 0 MG IV SCH (21:15)
[2022-09-17 22:06] LABS: Basophils # (auto) 0.1 10 ^3/uL (0-0.2); Basophils % (auto) 0.5 % (0.0-2.0); Eosinophils # (auto) 0.1 10 ^3/uL (0-0.8); Eosinophils % (auto) 1.3 % (0.0-7.0); Hematocrit 45.1 % (41.0-53.0); Hemoglobin 14.9 g/dL (13.5-17.5); Lymphocytes # (auto) 2.3 10 ^3/uL (0.4-5.4); Lymphocytes % (auto) 19.9 % (10.0-50.0); Mean Corpuscular Hgb Conc. 32.9 g/dL (32.0-36.0); Mean Corpuscular Volume 88.1 fL (80.0-100.0); Monocytes # (auto) 0.7 10 ^3/uL (0-1.3); Monocytes % (auto) 6.2 % (0.0-12.0); Neutrophils # (auto) 8.4 10 ^3/uL (1.6-8.6); Neutrophils % (auto) 72.1 % (37.0-80.0); Red Blood Cells 5.12 10^6/uL (4.5-5.90); Red Cell Distribution Width 13.5 % (11.8-14.3); White Blood Cell 11.6 10^3/uL (4.4-10.8)
[2022-09-17] MEDS ORDERED: VANCOMYCIN 1GM/250ML 250 ML IV ONE (22:15)
[2022-09-17 22:21] LABS: Albumin 3.8 g/dL (3.4-5.0); Calcium 8.8 mg/dL (8.5-10.1); Potassium 4.3 mmol/L (3.5-5.1)
[2022-09-17 22:24] LABS: Lactic Acid w/Reflex 2.2 mmol/L (0.4-2.0)
[2022-09-17 22:25] LABS: BUN/Creatinine Ratio 21.3; Bilirubin, Total 0.4 mg/dL (0.2-1.0); CRP High Sensitivity 0.81 mg/dL (< 0.3); Total Protein 8.3 g/dL (6.4-8.2)
[2022-09-17] MEDS ORDERED: PIPERACILLIN-TAZOB 3.375GM 100 ML IV ONE (23:00)
[2022-09-17] MEDS ORDERED: fentaNYL CITRATE 100 MCG/2 ML VL IV ONE (23:00)
[2022-09-17] MEDS ORDERED: MORPHINE SULFATE INJ 2 MG/ml SYRG IV PRN ×2 (23:15)
[2022-09-17] MEDS ORDERED: DEXTROSE (50%) 50ML SYRG IV PRN (23:15)
[2022-09-17] MEDS ORDERED: ACETAMINOPHEN 325 MG TAB PO PRN (23:15)
[2022-09-17] MEDS ORDERED: HYDROcodone-ACET 5/325MG TAB PO PRN (23:15)
[2022-09-17] MEDS ORDERED: DOCUSATE SOD 100 MG CAP PO PRN (23:15)
[2022-09-17] MEDS ORDERED: ONDANSETRON HCL 4 MG/2 ML VIAL IV PRN (23:15)
[2022-09-17] MEDS ORDERED: NITROGLYCERIN 0.4 MG SL TAB SL PRN (23:15)
[2022-09-18] MEDS: SODIUM CHLORIDE 0.9% 1,000 ML IV SCH ×4 (00:10→12:23)
[2022-09-18] MEDS: PIPERACILLIN-TAZOB 3.375GM 100 ML IV SCH ×2 (06:34→12:23)
[2022-09-18] MEDS: InsuLIN REG 1unit/0.01ml Soln (100units/ml) SC SCH ×2 (06:43→11:47)
[2022-09-18] MEDS: ACCU-CHEK COMFORT CURVE STRIP VI SCH ×2 (06:43→11:32)
[2022-09-18 07:04] LABS: Basophils # (auto) 0.1 10 ^3/uL (0-0.2); Basophils % (auto) 0.4 % (0.0-2.0); Eosinophils # (auto) 0.3 10 ^3/uL (0-0.8); Eosinophils % (auto) 1.9 % (0.0-7.0); Hematocrit 43.6 % (41.0-53.0); Lymphocytes # (auto) 3.5 10 ^3/uL (0.4-5.4); Lymphocytes % (auto) 24.7 % (10.0-50.0); Mean Corpuscular Hemoglobin 29.9 pg (28.0-32.0); Mean Corpuscular Hgb Conc. 34.4 g/dL (32.0-36.0); Mean Corpuscular Volume 86.9 fL (80.0-100.0); Monocytes % (auto) 7.3 % (0.0-12.0); Neutrophils # (auto) 9.2 10 ^3/uL (1.6-8.6); Neutrophils % (auto) 65.7 % (37.0-80.0); Red Blood Cells 5.01 10^6/uL (4.5-5.90); Red Cell Distribution Width 13.9 % (11.8-14.3); White Blood Cell 14.1 10^3/uL (4.4-10.8)
[2022-09-18 07:33] LABS: Calcium 9.1 mg/dL (8.5-10.1); Potassium 3.9 mmol/L (3.5-5.1)
[2022-09-18 07:35] LABS: BUN/Creatinine Ratio 21.6
[2022-09-18] MEDS ORDERED: MEPERIDINE HCL (25 MG/ML) 1ML VIAL IV ONE (08:45)
[2022-09-18] MEDS ORDERED: PANTOPRAZOLE 40 MG/10 ML VIAL INJ IV SCH (10:00)
[2022-09-18 10:51] VITALS: BP 106/51
[2022-09-18] MEDS ORDERED: OXYCODONE W/ ACETAMINOPHEN 5/325MG TABLET PO PRN ×2 (12:45)
[2022-09-18] MEDS ORDERED: LEVEMIR SC (13:03)
[2022-09-18] MEDS ORDERED: PROBTAB12 OR (13:03)
[2022-09-18] MEDS ORDERED: CEPH-322 PO (13:03)
[2022-09-18] MEDS ORDERED: VANCOMYCIN 1GM/250ML 250 ML IV SCH (17:00)
[2022-09-18] MEDS ORDERED: InsuLIN REG 1unit/0.01ml Soln (100units/ml) SC SCH (22:00)
== END 2022-09-18 13:30 | disposition home or self-care (01) | DRG 638 ==
LOC: ER 18:44 → OVERFLOW 23:34
PROVIDERS: ADMIT Nurse Practitioner Family; ATTEND Internal Medicine
DX: E11.69 Type 2 diabetes mellitus with other specified complication (principal); M86.8X7 Other osteomyelitis, ankle and foot; L08.9 Local infection of the skin and subcutaneous tissue, unspecified; I25.10 Atherosclerotic heart disease of native coronary artery without angina pectoris; I10 Essential (primary) hypertension; G30.9 Alzheimer's disease, unspecified; F02.80 Dementia in other diseases classified elsewhere, unspecified severity, without behavioral disturbance, psychotic disturbance, mood disturbance, and anxiety; Z20.822 Contact with and (suspected) exposure to COVID-19; E78.5 Hyperlipidemia, unspecified; E66.9 Obesity, unspecified; Z68.39 Body mass index [BMI] 39.0-39.9, adult; Z83.3 Family history of diabetes mellitus; Z85.038 Personal history of other malignant neoplasm of large intestine; Z86.73 Personal history of transient ischemic attack (TIA), and cerebral infarction without residual deficits; Z87.442 Personal history of urinary calculi; Z89.412 Acquired absence of left great toe; Z88.8 Allergy status to other drugs, medicaments and biological substances
CPT/HCPCS: 36415; 73700; 73720; 80048; 80053; 82962; 83605; 84484; 85025; 85652; 86141; 87040; 87205; 87426; 96365; 96367; 96375; C9113; G0378; J1815; J2543

== ENCOUNTER 2022-11-29 11:04 | Day surgery (SDC) | payer BC, MEDICARE ==
[2022-11-27 13:22] LABS: Basophils # (auto) 0.1 10 ^3/uL (0-0.2); Basophils % (auto) 0.6 % (0.0-2.0); Eosinophils # (auto) 0.2 10 ^3/uL (0-0.8); Eosinophils % (auto) 2.1 % (0.0-7.0); Hematocrit 38.2 % (41.0-53.0); Hemoglobin 13.2 g/dL (13.5-17.5); Lymphocytes # (auto) 2.8 10 ^3/uL (0.4-5.4); Lymphocytes % (auto) 27.9 % (10.0-50.0); Mean Corpuscular Hgb Conc. 34.7 g/dL (32.0-36.0); Mean Corpuscular Volume 86.5 fL (80.0-100.0); Monocytes # (auto) 0.7 10 ^3/uL (0-1.3); Monocytes % (auto) 6.9 % (0.0-12.0); Neutrophils # (auto) 6.2 10 ^3/uL (1.6-8.6); Neutrophils % (auto) 62.5 % (37.0-80.0); Red Blood Cells 4.42 10^6/uL (4.5-5.90); Red Cell Distribution Width 13.5 % (11.8-14.3); White Blood Cell 9.9 10^3/uL (4.4-10.8)
[2022-11-27 13:29] LABS: Urine Bacteria NONE SEEN /hpf (None Seen); Urine Blood Negative /uL (Negative); Urine Specific Gravity 1.023 (1.001-1.035); Urine WBC 3 /hpf (0 - 3)
[2022-11-27 13:45] LABS: Albumin 3.5 g/dL (3.4-5.0); Calcium 8.7 mg/dL (8.5-10.1); Potassium 3.6 mmol/L (3.5-5.1)
[2022-11-27 13:49] LABS: BUN/Creatinine Ratio 13.7; Bilirubin, Total 0.8 mg/dL (0.2-1.0); Total Protein 7.7 g/dL (6.4-8.2)
[2022-11-27 14:04] LABS: INR 0.96 (0.9-1.15); Partial Thromboplastin Time 29.9 sec (24.6-33.4)
[~2022-11-29] VITALS: Ht 177.8 cm; Wt 122.5 kg
[~2022-11-29 11:04] MED LIST changes: +CEPH-322 PO
[2022-11-29] MEDS ORDERED: LIDOCAINE 1%HCL (LOCAL ANESTH) 10 ML MDV ONE (12:10)
[2022-11-29] MEDS ORDERED: PROPOFOL 10 MG/ML 20 ML IV ONE (12:38)
[2022-11-29] MEDS ORDERED: LIDOCAINE 2% (LOCAL ANESTH.) PF 5ml SDV ONE (12:38)
[2022-11-29 14:20] VITALS: BP 129/71
== END 2022-11-29 14:35 | disposition home or self-care (01) ==
LOC: GI 11:04
PROVIDERS: ATTEND Internal Medicine Gastroenterology
DX: Z12.11 Encounter for screening for malignant neoplasm of colon (principal); Z86.010 Personal history of colon polyps; K63.5 Polyp of colon; Q43.8 Other specified congenital malformations of intestine; K64.0 First degree hemorrhoids; K21.9 Gastro-esophageal reflux disease without esophagitis; E11.9 Type 2 diabetes mellitus without complications; I10 Essential (primary) hypertension; Z79.899 Other long term (current) drug therapy; Z79.84 Long term (current) use of oral hypoglycemic drugs; Z90.49 Acquired absence of other specified parts of digestive tract; Z20.822 Contact with and (suspected) exposure to COVID-19
CPT/HCPCS: 36415; 45385; 80053; 81001; 82962; 85025; 85610; 85730; 88305; J2001; J2704; J7030; U0003

== ENCOUNTER 2022-12-11 01:25 | Inpatient (IN) | payer BC, MEDICARE ==
[~2022-12-11] VITALS: Ht 177.8 cm; Wt 126.0 kg
[2022-12-11 02:00] VITALS: BP_SYST 124; BP_SYST 131; BP_DIAS 54; BP_DIAS 89
[2022-12-11] MEDS ORDERED: SODIUM CHLORIDE 0.9% 1,000 ML IV SCH (04:00)
[2022-12-11] MEDS ORDERED: VANCOMYCIN PER PHARMACY 0 MG IV SCH (04:00)
[2022-12-11] MEDS ORDERED: DEXTROSE (50%) 50ML SYRG IV PRN (04:00)
[2022-12-11] MEDS ORDERED: MORPHINE SULFATE INJ 2 MG/ml SYRG IV PRN (04:00)
[2022-12-11] MEDS: ONDANSETRON HCL 4 MG/2 ML VIAL IV PRN ×2 (04:42→18:00)
[2022-12-11] MEDS ORDERED: MEPERIDINE HCL (25 MG/ML) 1ML VIAL IV ONE (04:45)
[2022-12-11] MEDS: cefTRIAXone 1GM/50ML D5W 50 ML IV SCH (04:47)
[2022-12-11 04:54] VITALS: BP 160/83
[2022-12-11] MEDS ORDERED: VANCOMYCIN 1GM/250ML 250 ML IV ONE (05:00)
[2022-12-11] MEDS: ACCU-CHEK COMFORT CURVE STRIP VI SCH ×4 (05:38→23:48)
[2022-12-11] MEDS: InsuLIN REG 1unit/0.01ml Soln (100units/ml) SC SCH ×4 (06:15→23:49)
[2022-12-11 08:10] LABS: Basophils # (auto) 0 10 ^3/uL (0-0.2); Basophils % (auto) 0.1 % (0.0-2.0); Eosinophils # (auto) 0.2 10 ^3/uL (0-0.8); Eosinophils % (auto) 1.7 % (0.0-7.0); Hematocrit 31.2 % (41.0-53.0); Hemoglobin 10.7 g/dL (13.5-17.5); Lymphocytes # (auto) 2.7 10 ^3/uL (0.4-5.4); Mean Corpuscular Hemoglobin 29.9 pg (28.0-32.0); Mean Corpuscular Hgb Conc. 34.2 g/dL (32.0-36.0); Mean Corpuscular Volume 87.3 fL (80.0-100.0); Monocytes # (auto) 0.7 10 ^3/uL (0-1.3); Monocytes % (auto) 7.1 % (0.0-12.0); Neutrophils # (auto) 6.4 10 ^3/uL (1.6-8.6); Neutrophils % (auto) 64.1 % (37.0-80.0); Nucleated Red Blood Cells % 0.2 %; Red Blood Cells 3.57 10^6/uL (4.5-5.90); Red Cell Distribution Width 13.4 % (11.8-14.3); White Blood Cell 9.9 10^3/uL (4.4-10.8)
[2022-12-11 08:17] VITALS: BP 172/84
[2022-12-11 08:23] LABS: Albumin 2.9 g/dL (3.4-5.0); Potassium 4.1 mmol/L (3.5-5.1)
[2022-12-11 08:26] LABS: BUN/Creatinine Ratio 14.3; Bilirubin, Total 0.4 mg/dL (0.2-1.0); Total Protein 6.2 g/dL (6.4-8.2)
[2022-12-11 08:27] LABS: INR 0.98 (0.9-1.15); Partial Thromboplastin Time 25.3 sec (24.6-33.4)
[2022-12-11] MEDS ORDERED: MEPERIDINE HCL (25 MG/ML) 1ML VIAL IM PRN (09:45)
[2022-12-11] MEDS ORDERED: HYDROcodone-ACET 10/325MG TAB PO PRN (11:45)
[2022-12-11] MEDS: MEPERIDINE HCL (25 MG/ML) 1ML VIAL IV PRN ×2 (11:52→18:18)
[2022-12-11 11:55] LABS: % Iron Saturation 21.4 % (20-55)
[2022-12-11 12:21] LABS: Folate (Folic Acid) > 24.00 ng/mL (5.38-24)
[2022-12-11 12:28] LABS: Urine Bacteria NONE SEEN /hpf (None Seen); Urine Blood TRACE /uL (Negative); Urine Specific Gravity 1.017 (1.001-1.035); Urine WBC 1 /hpf (0 - 3)
[2022-12-11 12:30] VITALS: BP 199/97
[2022-12-11] MEDS: VANCOMYCIN 1GM/250ML 250 ML IV SCH (15:27)
[2022-12-11 15:37] LABS: Cholesterol 106 mg/dL (< 200); Triglycerides 139 mg/dL (< 150)
[2022-12-11 15:40] LABS: HDL Cholesterol 34 mg/dL (40-59); LDL Cholesterol 62 mg/dL (< 100)
[2022-12-11] MEDS ORDERED: amLODIPine BESYLATE 5 MG TAB PO ONE (15:45)
[2022-12-11] MEDS ORDERED: hydrALAZINE HCL 25 MG TAB PO ONE (15:45)
[2022-12-11 16:20] VITALS: BP 179/95
[2022-12-11] MEDS: ATORVASTATIN 20 MG TAB PO SCH (21:20)
[2022-12-11 22:00] VITALS: BP 126/56
[2022-12-11] MEDS: hydrALAZINE HCL 25 MG TAB PO PRN (22:05)
[2022-12-12] MEDS: MEPERIDINE HCL (25 MG/ML) 1ML VIAL IV PRN ×4 (00:25→18:34)
[2022-12-12] MEDS: VANCOMYCIN 1GM/250ML 250 ML IV SCH ×3 (01:49→22:26)
[2022-12-12 05:00] VITALS: BP 115/70
[2022-12-12] MEDS: ACCU-CHEK COMFORT CURVE STRIP VI SCH ×3 (05:55→16:57)
[2022-12-12] MEDS: InsuLIN REG 1unit/0.01ml Soln (100units/ml) SC SCH ×3 (05:57→17:19)
[2022-12-12 06:28] LABS: Hematocrit 30.4 % (41.0-53.0); Hemoglobin 10.4 g/dL (13.5-17.5); Mean Corpuscular Hemoglobin 29.5 pg (28.0-32.0); Mean Corpuscular Hgb Conc. 34.2 g/dL (32.0-36.0); Mean Corpuscular Volume 86.3 fL (80.0-100.0); Red Blood Cells 3.53 10^6/uL (4.5-5.90); Red Cell Distribution Width 13.2 % (11.8-14.3); White Blood Cell 9.8 10^3/uL (4.4-10.8)
[2022-12-12 06:33] LABS: Potassium 3.4 mmol/L (3.5-5.1)
[2022-12-12 06:39] LABS: Albumin 2.9 g/dL (3.4-5.0); Bilirubin, Total 0.6 mg/dL (0.2-1.0); Calcium 7.9 mg/dL (8.5-10.1); Total Protein 6.4 g/dL (6.4-8.2)
[2022-12-12 06:47] LABS: Basophils % (manual) 0 (0.0-2.0); Blast Cells 0; Metamyelocytes % 0; Myelocytes % 0; Promyelocytes % 0; Reactive Lymphocytes 0
[2022-12-12 08:18] LABS: Band Neutrophils % (manual) 1; Eosinophils % (manual) 2 (0-7); Lymphocytes % (manual) 28 (10.0-50.0); Monocytes % (manual) 3 (0-12)
[2022-12-12 08:33] VITALS: BP 128/92
[2022-12-12 08:44] VITALS: BP 162/75
[2022-12-12] MEDS: cefTRIAXone 1GM/50ML D5W 50 ML IV SCH (08:54)
[2022-12-12] MEDS: LISINOPRIL 20 MG TAB PO SCH (08:55)
[2022-12-12] MEDS: amLODIPine BESYLATE 5 MG TAB PO SCH (08:56)
[2022-12-12] MEDS ORDERED: HCTZ 25 MG TAB PO SCH (10:00)
[2022-12-12 12:34] VITALS: BP 163/79
[2022-12-12] MEDS: hydrALAZINE HCL 25 MG TAB PO PRN (13:14)
[2022-12-12] MEDS ORDERED: POTASSIUM CHL 20 Meq TABLET PO ONE (14:30)
[2022-12-12] MEDS ORDERED: hydrALAZINE HCL 25 MG TAB PO ONE (14:30)
[2022-12-12 17:09] VITALS: BP 148/75
[2022-12-12 22:00] VITALS: BP 141/73
[2022-12-12] MEDS: ATORVASTATIN 20 MG TAB PO SCH (22:27)
[2022-12-12] MEDS: hydrALAZINE HCL 25 MG TAB PO SCH (22:27)
[2022-12-13] MEDS: MEPERIDINE HCL (25 MG/ML) 1ML VIAL IV PRN ×4 (01:02→18:27)
[2022-12-13] MEDS: ACCU-CHEK COMFORT CURVE STRIP VI SCH ×4 (01:10→18:26)
[2022-12-13] MEDS: InsuLIN REG 1unit/0.01ml Soln (100units/ml) SC SCH ×4 (01:17→18:28)
[2022-12-13 05:00] VITALS: BP 154/73
[2022-12-13] MEDS: hydrALAZINE HCL 25 MG TAB PO SCH ×3 (06:19→22:16)
[2022-12-13] MEDS: ONDANSETRON HCL 4 MG/2 ML VIAL IV PRN (06:37)
[2022-12-13] MEDS: VANCOMYCIN 1GM/250ML 250 ML IV SCH ×2 (08:55→18:26)
[2022-12-13] MEDS: amLODIPine BESYLATE 5 MG TAB PO SCH (08:56)
[2022-12-13] MEDS: HCTZ 25 MG TAB PO SCH (08:57)
[2022-12-13] MEDS: LISINOPRIL 20 MG TAB PO SCH (08:57)
[2022-12-13 09:13] VITALS: BP 134/77
[2022-12-13] MEDS: cefTRIAXone 1GM/50ML D5W 50 ML IV SCH (09:55)
[2022-12-13] MEDS ORDERED: INFLUENZA QUAD 2022-2023 0.5 ML SYRG IM ONE (12:00)
[2022-12-13 13:00] VITALS: BP 136/74
[2022-12-13] MEDS ORDERED: LIDOCAINE 1% (LOCAL ANESTH.) PF 5ml SDV ID ONE (16:15)
[2022-12-13 17:00] VITALS: BP 148/80
[2022-12-13] MEDS: ATORVASTATIN 20 MG TAB PO SCH (22:15)
[2022-12-13] MEDS: SODIUM CHLOR 0.9% PF (SALINE LOCK) 10ML VIAL/SYR IV SCH (22:16)
[2022-12-13 23:05] VITALS: BP 148/77
[2022-12-14] MEDS: ACCU-CHEK COMFORT CURVE STRIP VI SCH ×4 (00:23→17:31)
[2022-12-14] MEDS: InsuLIN REG 1unit/0.01ml Soln (100units/ml) SC SCH ×4 (00:42→17:39)
[2022-12-14] MEDS: MEPERIDINE HCL (25 MG/ML) 1ML VIAL IV PRN ×4 (00:45→19:12)
[2022-12-14] MEDS: ONDANSETRON HCL 4 MG/2 ML VIAL IV PRN ×4 (00:45→19:08)
[2022-12-14] MEDS: VANCOMYCIN 1GM/250ML 250 ML IV SCH ×2 (04:08→14:07)
[2022-12-14] MEDS: hydrALAZINE HCL 25 MG TAB PO PRN (04:15)
[2022-12-14 05:09] VITALS: BP 156/85
[2022-12-14] MEDS: hydrALAZINE HCL 25 MG TAB PO SCH ×3 (07:44→22:01)
[2022-12-14 07:45] VITALS: BP 138/71
[2022-12-14 08:42] LABS: BUN/Creatinine Ratio 16.7; Calcium 8.2 mg/dL (8.5-10.1); Potassium 3.7 mmol/L (3.5-5.1)
[2022-12-14] MEDS: cefTRIAXone 1GM/50ML D5W 50 ML IV SCH (08:43)
[2022-12-14] MEDS: HCTZ 25 MG TAB PO SCH (08:51)
[2022-12-14] MEDS: LISINOPRIL 20 MG TAB PO SCH (08:55)
[2022-12-14] MEDS: amLODIPine BESYLATE 5 MG TAB PO SCH (08:55)
[2022-12-14] MEDS: SODIUM CHLOR 0.9% PF (SALINE LOCK) 10ML VIAL/SYR IV SCH ×2 (09:01→22:01)
[2022-12-14 09:13] VITALS: BP 138/71
[2022-12-14 09:56] LABS: Hematocrit 32.6 % (41.0-53.0); Mean Corpuscular Hemoglobin 29.7 pg (28.0-32.0); Mean Corpuscular Hgb Conc. 33.7 g/dL (32.0-36.0); Mean Corpuscular Volume 88.3 fL (80.0-100.0); Red Blood Cells 3.69 10^6/uL (4.5-5.90); Red Cell Distribution Width 13.5 % (11.8-14.3); White Blood Cell 11.1 10^3/uL (4.4-10.8)
[2022-12-14 09:59] LABS: Basophils % (manual) 0 (0.0-2.0); Blast Cells 0; Metamyelocytes % 0; Myelocytes % 0; Promyelocytes % 0; Reactive Lymphocytes 0
[2022-12-14 11:54] LABS: Band Neutrophils % (manual) 5; Eosinophils % (manual) 2 (0-7); Lymphocytes % (manual) 32 (10.0-50.0); Monocytes % (manual) 7 (0-12)
[2022-12-14 12:50] VITALS: BP 134/62
[2022-12-14 16:59] VITALS: BP 127/67
[2022-12-14 22:00] VITALS: BP 113/57
[2022-12-14] MEDS: ATORVASTATIN 20 MG TAB PO SCH (22:01)
[2022-12-15] MEDS: VANCOMYCIN 1GM/250ML 250 ML IV SCH (00:17)
[2022-12-15] MEDS: ACCU-CHEK COMFORT CURVE STRIP VI SCH ×5 (00:17→23:28)
[2022-12-15] MEDS: InsuLIN REG 1unit/0.01ml Soln (100units/ml) SC SCH ×5 (00:20→23:29)
[2022-12-15] MEDS: ONDANSETRON HCL 4 MG/2 ML VIAL IV PRN ×4 (01:08→20:41)
[2022-12-15] MEDS: MEPERIDINE HCL (25 MG/ML) 1ML VIAL IV PRN ×4 (01:09→20:42)
[2022-12-15 05:00] VITALS: BP 139/70
[2022-12-15] MEDS: hydrALAZINE HCL 25 MG TAB PO SCH ×3 (06:00→21:45)
[2022-12-15 07:30] VITALS: BP 136/74
[2022-12-15] MEDS: cefTRIAXone 1GM/50ML D5W 50 ML IV SCH (08:47)
[2022-12-15 09:00] VITALS: BP 136/74
[2022-12-15] MEDS: LISINOPRIL 20 MG TAB PO SCH (10:02)
[2022-12-15] MEDS: HCTZ 25 MG TAB PO SCH (10:03)
[2022-12-15] MEDS: amLODIPine BESYLATE 5 MG TAB PO SCH (10:04)
[2022-12-15] MEDS: SODIUM CHLOR 0.9% PF (SALINE LOCK) 10ML VIAL/SYR IV SCH ×2 (10:04→22:28)
[2022-12-15 13:06] VITALS: BP 117/75
[2022-12-15 16:33] VITALS: BP 164/74
[2022-12-15] MEDS: hydrALAZINE HCL 25 MG TAB PO PRN (17:06)
[2022-12-15] MEDS: ATORVASTATIN 20 MG TAB PO SCH (21:45)
[2022-12-15 22:00] VITALS: BP 128/65
[2022-12-16] VITALS (7 sets, daily range): BP systolic 120–154; BP diastolic 58–82
[2022-12-16] MEDS: ONDANSETRON HCL 4 MG/2 ML VIAL IV PRN ×4 (03:25→21:40)
[2022-12-16] MEDS: MEPERIDINE HCL (25 MG/ML) 1ML VIAL IV PRN ×4 (03:26→21:45)
[2022-12-16] MEDS: ACCU-CHEK COMFORT CURVE STRIP VI SCH ×4 (05:44→23:52)
[2022-12-16] MEDS: InsuLIN REG 1unit/0.01ml Soln (100units/ml) SC SCH ×4 (05:47→23:54)
[2022-12-16] MEDS: hydrALAZINE HCL 25 MG TAB PO SCH ×3 (05:49→22:27)
[2022-12-16] MEDS: cefTRIAXone 1GM/50ML D5W 50 ML IV SCH (08:47)
[2022-12-16] MEDS: LISINOPRIL 20 MG TAB PO SCH (08:47)
[2022-12-16] MEDS: amLODIPine BESYLATE 5 MG TAB PO SCH (08:48)
[2022-12-16] MEDS: HCTZ 25 MG TAB PO SCH (08:48)
[2022-12-16] MEDS: SODIUM CHLOR 0.9% PF (SALINE LOCK) 10ML VIAL/SYR IV SCH ×2 (11:10→22:26)
[2022-12-16] MEDS: ATORVASTATIN 20 MG TAB PO SCH (22:26)
[2022-12-17] VITALS (7 sets, daily range): BP systolic 120–137; BP diastolic 63–77
[2022-12-17] MEDS: ONDANSETRON HCL 4 MG/2 ML VIAL IV PRN ×3 (04:09→16:55)
[2022-12-17] MEDS: MEPERIDINE HCL (25 MG/ML) 1ML VIAL IV PRN ×4 (04:10→22:55)
[2022-12-17] MEDS: ACCU-CHEK COMFORT CURVE STRIP VI SCH ×4 (06:09→23:53)
[2022-12-17] MEDS: hydrALAZINE HCL 25 MG TAB PO SCH ×3 (06:09→22:15)
[2022-12-17] MEDS: InsuLIN REG 1unit/0.01ml Soln (100units/ml) SC SCH ×4 (06:10→23:57)
[2022-12-17] MEDS: cefTRIAXone 1GM/50ML D5W 50 ML IV SCH (08:33)
[2022-12-17] MEDS: amLODIPine BESYLATE 5 MG TAB PO SCH (08:39)
[2022-12-17] MEDS: LISINOPRIL 20 MG TAB PO SCH (08:40)
[2022-12-17] MEDS: HCTZ 25 MG TAB PO SCH (08:40)
[2022-12-17] MEDS: SODIUM CHLOR 0.9% PF (SALINE LOCK) 10ML VIAL/SYR IV SCH ×2 (10:10→22:00)
[2022-12-17] MEDS: Juven Orange Powder PACKET 27.5gm PO SCH (20:10)
[2022-12-17] MEDS: ATORVASTATIN 20 MG TAB PO SCH (22:15)
[2022-12-18 05:00] VITALS: BP 125/80
[2022-12-18] MEDS: ONDANSETRON HCL 4 MG/2 ML VIAL IV PRN ×3 (05:00→10:52)
[2022-12-18] MEDS: MEPERIDINE HCL (25 MG/ML) 1ML VIAL IV PRN ×3 (05:00→10:53)
[2022-12-18] MEDS: hydrALAZINE HCL 25 MG TAB PO SCH ×2 (06:00→14:37)
[2022-12-18] MEDS: ACCU-CHEK COMFORT CURVE STRIP VI SCH ×2 (06:00→14:25)
[2022-12-18] MEDS: InsuLIN REG 1unit/0.01ml Soln (100units/ml) SC SCH ×2 (06:03→11:50)
[2022-12-18 08:00] VITALS: BP 123/66
[2022-12-18] MEDS: cefTRIAXone 1GM/50ML D5W 50 ML IV SCH (08:34)
[2022-12-18] MEDS: LISINOPRIL 20 MG TAB PO SCH (08:40)
[2022-12-18] MEDS: amLODIPine BESYLATE 5 MG TAB PO SCH (08:41)
[2022-12-18] MEDS: SODIUM CHLOR 0.9% PF (SALINE LOCK) 10ML VIAL/SYR IV SCH (08:41)
[2022-12-18] MEDS: HCTZ 25 MG TAB PO SCH (08:41)
[2022-12-18] MEDS: Juven Orange Powder PACKET 27.5gm PO SCH (08:42)
[2022-12-18 09:00] VITALS: BP 111/65
[2022-12-18] MEDS ORDERED: LEVEMIR SC (10:48)
[2022-12-18] MEDS ORDERED: PROBTAB12 OR (10:48)
[2022-12-18] MEDS ORDERED: HYDR-4798 PO (10:49)
[2022-12-18 12:26] VITALS: BP 123/63
[2022-12-18 13:00] VITALS: BP 123/63
== END 2022-12-18 16:15 | disposition home health service (06) | DRG 638 ==
LOC: TELE-WESTW 01:25
PROVIDERS: ADMIT Internal Medicine; ATTEND Internal Medicine
PROC: 05H933Z Insertion of Infusion Device into Right Brachial Vein, Percutaneous Approach (ICD-10-PCS; principal; 2022-12-13)
PROC: B54MZZA Ultrasonography of Right Upper Extremity Veins, Guidance (ICD-10-PCS; 2022-12-13)
DX: E11.621 Type 2 diabetes mellitus with foot ulcer (principal); K92.2 Gastrointestinal hemorrhage, unspecified; L03.116 Cellulitis of left lower limb; L97.529 Non-pressure chronic ulcer of other part of left foot with unspecified severity; B95.0 Streptococcus, group A, as the cause of diseases classified elsewhere; E11.628 Type 2 diabetes mellitus with other skin complications; E66.01 Morbid (severe) obesity due to excess calories; I10 Essential (primary) hypertension; Z20.822 Contact with and (suspected) exposure to COVID-19; E11.610 Type 2 diabetes mellitus with diabetic neuropathic arthropathy; E78.5 Hyperlipidemia, unspecified; Z80.0 Family history of malignant neoplasm of digestive organs; Z82.49 Family history of ischemic heart disease and other diseases of the circulatory system; Z83.3 Family history of diabetes mellitus; Z85.038 Personal history of other malignant neoplasm of large intestine; Z86.73 Personal history of transient ischemic attack (TIA), and cerebral infarction without residual deficits; Z82.0 Family history of epilepsy and other diseases of the nervous system; Z71.3 Dietary counseling and surveillance; Z88.5 Allergy status to narcotic agent
CPT/HCPCS: 36415; 36569; 71045; 73630; 80048; 80053; 80061; 80202; 81001; 82043; 82270; 82565; 82607; 82746; 82962; 83036; 83540; 83550; 83615; 84443; 84484; 85007; 85025; 85027; 85045; 85610; 85730; 86850; 86900; 86901; 87077; 87081; 87186; 87205; 87426; 90686; G0378; J0696; J1815; J2405

== ENCOUNTER 2023-03-03 17:19 | Inpatient (IN) | payer BC, MEDICARE ==
[~2023-03-03] VITALS: Ht 177.8 cm; Wt 128.5 kg
[~2023-03-03 17:19] MED LIST changes: +HYDR-4798 PO; -NOR10T PO
[2023-03-03] MEDS ORDERED: CLINDAMYCIN 300MG IV 50 ML IV ONE (18:45)
[2023-03-03] MEDS ORDERED: PIPERACILLIN-TAZOB 3.375GM 100 ML IV ONE (18:45)
[2023-03-03] MEDS ORDERED: fentaNYL CITRATE 100 MCG/2 ML VL IM ONE (19:15)
[2023-03-03 19:33] LABS: Basophils # (auto) 0.1 10 ^3/uL (0-0.2); Basophils % (auto) 0.5 % (0.0-2.0); Eosinophils # (auto) 0.3 10 ^3/uL (0-0.8); Eosinophils % (auto) 2.3 % (0.0-7.0); Hematocrit 36.2 % (41.0-53.0); Hemoglobin 11.4 g/dL (13.5-17.5); Lymphocytes % (auto) 14.2 % (10.0-50.0); Mean Corpuscular Hemoglobin 23.3 pg (28.0-32.0); Mean Corpuscular Hgb Conc. 31.4 g/dL (32.0-36.0); Mean Corpuscular Volume 74.1 fL (80.0-100.0); Monocytes # (auto) 0.8 10 ^3/uL (0-1.3); Monocytes % (auto) 5.5 % (0.0-12.0); Neutrophils % (auto) 77.5 % (37.0-80.0); Red Blood Cells 4.88 10^6/uL (4.5-5.90); Red Cell Distribution Width 17.4 % (11.8-14.3); White Blood Cell 14.2 10^3/uL (4.4-10.8)
[2023-03-03 20:04] LABS: Albumin 3.3 g/dL (3.4-5.0); Calcium 9.3 mg/dL (8.5-10.1); Potassium 4.4 mmol/L (3.5-5.1)
[2023-03-03 20:06] LABS: BUN/Creatinine Ratio 27.9 (10.0-20.0)
[2023-03-03 20:09] LABS: Bilirubin, Total 0.3 mg/dL (0.2-1.0); Total Protein 8.8 g/dL (6.4-8.2)
[2023-03-03] MEDS ORDERED: InsuLIN REG 1unit/0.01ml Soln (100units/ml) SC ONE (20:30)
[2023-03-03] MEDS ORDERED: HYDROcodone-ACET 5/325MG TAB PO PRN (21:15)
[2023-03-03] MEDS ORDERED: ONDANSETRON HCL 4 MG/2 ML VIAL IV PRN (21:15)
[2023-03-03] MEDS ORDERED: ACETAMINOPHEN 325 MG TAB PO PRN (21:15)
[2023-03-03] MEDS ORDERED: VANCOMYCIN PER PHARMACY 0 MG IV SCH (21:15)
[2023-03-03] MEDS ORDERED: DEXTROSE (50%) 50ML SYRG IV PRN (21:15)
[2023-03-03] MEDS ORDERED: TEMAZEPAM 15 MG CAP PO PRN (21:15)
[2023-03-03] MEDS ORDERED: VANCOMYCIN 1GM/250ML 250 ML IV ONE (22:45)
[2023-03-03] MEDS ORDERED: KETOROLAC TROMETH 30 MG/ML 1ML VIAL IV ONE (23:15)
[2023-03-03] MEDS: ACCU-CHEK COMFORT CURVE STRIP VI SCH (23:41)
[2023-03-03] MEDS: ATORVASTATIN 20 MG TAB PO SCH (23:41)
[2023-03-03] MEDS: InsuLIN REG 1unit/0.01ml Soln (100units/ml) SC SCH (23:42)
[2023-03-04] MEDS ORDERED: MORPHINE SULFATE INJ 2 MG/ml SYRG IV PRN (02:45)
[2023-03-04] MEDS ORDERED: AML5T PO (02:48)
[2023-03-04] MEDS ORDERED: PREG50CA PO (02:48)
[2023-03-04] MEDS ORDERED: PERCOT PO (02:48)
[2023-03-04] MEDS: PIPERACILLIN-TAZOB 3.375GM 100 ML IV SCH ×2 (02:50→10:19)
[2023-03-04 05:00] VITALS: BP 127/71
[2023-03-04] MEDS: InsuLIN REG 1unit/0.01ml Soln (100units/ml) SC SCH ×4 (06:51→21:18)
[2023-03-04] MEDS: ACCU-CHEK COMFORT CURVE STRIP VI SCH ×4 (06:51→21:12)
[2023-03-04 07:10] LABS: Basophils # (auto) 0.1 10 ^3/uL (0-0.2); Eosinophils # (auto) 0.5 10 ^3/uL (0-0.8); Lymphocytes # (auto) 3.5 10 ^3/uL (0.4-5.4); Mean Corpuscular Hemoglobin 23.5 pg (28.0-32.0); Monocytes # (auto) 1.1 10 ^3/uL (0-1.3); Nucleated Red Blood Cells % 0.1 %
[2023-03-04 07:12] LABS: Basophils % (auto) 0.5 % (0.0-2.0); Eosinophils % (auto) 3.5 % (0.0-7.0); Hemoglobin 10.9 g/dL (13.5-17.5); Lymphocytes % (auto) 25.1 % (10.0-50.0); Mean Corpuscular Hgb Conc. 32.9 g/dL (32.0-36.0); Mean Corpuscular Volume 71.5 fL (80.0-100.0); Monocytes % (auto) 8.1 % (0.0-12.0); Neutrophils # (auto) 8.6 10 ^3/uL (1.6-8.6); Neutrophils % (auto) 62.8 % (37.0-80.0); Red Blood Cells 4.62 10^6/uL (4.5-5.90); Red Cell Distribution Width 17.2 % (11.8-14.3); White Blood Cell 13.7 10^3/uL (4.4-10.8)
[2023-03-04 07:17] LABS: Potassium 3.5 mmol/L (3.5-5.1)
[2023-03-04 07:24] LABS: Albumin 3.2 g/dL (3.4-5.0); BUN/Creatinine Ratio 29.2 (10.0-20.0); Bilirubin, Total 0.4 mg/dL (0.2-1.0); Calcium 8.9 mg/dL (8.5-10.1); Total Protein 8.4 g/dL (6.4-8.2)
[2023-03-04 07:30] VITALS: BP 131/64
[2023-03-04 08:28] VITALS: BP 131/64
[2023-03-04] MEDS ORDERED: LISINOPRIL 20 MG TAB PO SCH (10:00)
[2023-03-04] MEDS ORDERED: HCTZ 25 MG TAB PO SCH (10:00)
[2023-03-04] MEDS: ASPirin 81 mg TAB PO SCH (10:20)
[2023-03-04] MEDS: ENOXAPARIN SOD 40 MG/0.4 ML SYRINGE SC SCH (10:20)
[2023-03-04] MEDS: PANTOPRAZOLE 40 MG TAB PO SCH (10:20)
[2023-03-04] MEDS: HYDROmorphone HCL 2 MG/ML VL/or syr IV PRN ×3 (11:52→19:59)
[2023-03-04 12:42] VITALS: BP 147/77
[2023-03-04] MEDS: SODIUM CHLORIDE 0.9% 1,000 ML IV SCH ×2 (12:59→15:52)
[2023-03-04] MEDS: CEFEPIME 2 GM in SODIUM CHL 0.9% 50 ML IV SCH ×2 (12:59→15:51)
[2023-03-04 16:46] VITALS: BP 137/84
[2023-03-04] MEDS: ATORVASTATIN 20 MG TAB PO SCH (21:18)
[2023-03-04] MEDS: VANCOMYCIN 1GM/250ML 250 ML IV SCH (21:34)
[2023-03-04 22:00] VITALS: BP 129/77
[2023-03-04 22:26] LABS: Urine Bacteria NONE SEEN /hpf (None Seen); Urine Blood Negative /uL (Negative); Urine Specific Gravity 1.022 (1.001-1.035); Urine WBC 2 /hpf (0 - 3)
[2023-03-04] MEDS: OXYCODONE W/ ACETAMINOPHEN 5/325MG TABLET PO PRN (22:31)
[2023-03-05] VITALS (7 sets, daily range): BP systolic 108–146; BP diastolic 59–83
[2023-03-05] MEDS: CEFEPIME 2 GM in SODIUM CHL 0.9% 50 ML IV SCH ×2 (03:18→17:06)
[2023-03-05] MEDS: HYDROmorphone HCL 2 MG/ML VL/or syr IV PRN ×5 (04:18→22:49)
[2023-03-05 06:01] LABS: Basophils # (auto) 0.1 10 ^3/uL (0-0.2); White Blood Cell 10.8 10^3/uL (4.4-10.8)
[2023-03-05 06:04] LABS: Basophils % (auto) 0.9 % (0.0-2.0); Eosinophils # (auto) 0.3 10 ^3/uL (0-0.8); Hematocrit 31.6 % (41.0-53.0); Lymphocytes # (auto) 2.9 10 ^3/uL (0.4-5.4); Mean Corpuscular Hemoglobin 24.1 pg (28.0-32.0); Mean Corpuscular Hgb Conc. 34.7 g/dL (32.0-36.0); Mean Corpuscular Volume 69.6 fL (80.0-100.0); Monocytes # (auto) 0.9 10 ^3/uL (0-1.3); Neutrophils # (auto) 6.6 10 ^3/uL (1.6-8.6); Neutrophils % (auto) 61.1 % (37.0-80.0); Nucleated Red Blood Cells % 0.3 %; Red Blood Cells 4.54 10^6/uL (4.5-5.90); Red Cell Distribution Width 17.3 % (11.8-14.3)
[2023-03-05 06:14] LABS: INR 1.04 (0.9-1.15); Partial Thromboplastin Time 31.6 sec (24.6-33.4)
[2023-03-05] MEDS: ACCU-CHEK COMFORT CURVE STRIP VI SCH ×4 (06:17→22:10)
[2023-03-05] MEDS: InsuLIN REG 1unit/0.01ml Soln (100units/ml) SC SCH ×4 (06:17→21:58)
[2023-03-05 06:25] LABS: BUN/Creatinine Ratio 28.5 (10.0-20.0); Calcium 9.1 mg/dL (8.5-10.1); Potassium 3.9 mmol/L (3.5-5.1)
[2023-03-05] MEDS: ENOXAPARIN SOD 40 MG/0.4 ML SYRINGE SC SCH (08:58)
[2023-03-05] MEDS: PANTOPRAZOLE 40 MG TAB PO SCH (08:59)
[2023-03-05] MEDS: ASPirin 81 mg TAB PO SCH (08:59)
[2023-03-05] MEDS ORDERED: PROPOFOL 10 MG/ML 20 ML IV ONE ×5 (09:00→11:48)
[2023-03-05] MEDS ORDERED: DexAMETHasone SOD PHOS 10MG/1ML VIAL INJ ONE (09:01)
[2023-03-05] MEDS ORDERED: LIDOCAINE 2% (LOCAL ANESTH.) PF 5ml SDV ONE (09:01)
[2023-03-05] MEDS ORDERED: GLYCOPYRROLATE 0.2 MG/ML 1ML VIAL ONE (09:01)
[2023-03-05] MEDS ORDERED: KETOROLAC TROMETH 30 MG/ML 1ML VIAL ONE (09:01)
[2023-03-05] MEDS ORDERED: ONDANSETRON HCL 4 MG/2 ML VIAL ONE (09:01)
[2023-03-05] MEDS ORDERED: ceFAZolin 1GM/50ML 100 ML IV ONE (09:09)
[2023-03-05] MEDS ORDERED: ROPIVACAINE 0.5% (5MG/ML) 20ML AMPULE IJ ONE (10:51)
[2023-03-05] MEDS ORDERED: BACITRACIN TOP OINT 1 UD PKG TOP ONE (10:51)
[2023-03-05] MEDS ORDERED: ceFAZolin 1GM VL ONE (10:55)
[2023-03-05] MEDS ORDERED: PHENYLEPHRINE HCL 10 MG/ML VL ONE (11:17)
[2023-03-05] MEDS ORDERED: GADOTERATE MEG 10 MMOL/20ml INJ (0.5MMOL/ml) IV ONE (12:33)
[2023-03-05] MEDS ORDERED: DexAMETHasone SOD PHOS 4 MG/1ML SDV INJ ONE (13:37)
[2023-03-05] MEDS ORDERED: BUPIVACAINE 0.5% P/F INJ 10 ML VIAL ONE (13:37)
[2023-03-05] MEDS ORDERED: KETAMINE 50mg/ML 10ml Vial (500mg/10ml) IV ONE (14:54)
[2023-03-05] MEDS ORDERED: LIDOCAINE 1% (LOCAL ANESTH.) PF 5ml SDV ID ONE (16:30)
[2023-03-05] MEDS: SODIUM CHLORIDE 0.9% 1,000 ML IV SCH (20:35)
[2023-03-05] MEDS: ATORVASTATIN 20 MG TAB PO SCH (21:56)
[2023-03-05] MEDS: SODIUM CHLOR 0.9% PF (SALINE LOCK) 10ML VIAL/SYR IV SCH (22:09)
[2023-03-05] MEDS: VANCOMYCIN 1GM/250ML 250 ML IV SCH (22:10)
[2023-03-05] MEDS: OXYCODONE W/ ACETAMINOPHEN 5/325MG TABLET PO PRN (22:11)
[2023-03-06] MEDS: OXYCODONE W/ ACETAMINOPHEN 5/325MG TABLET PO PRN ×2 (02:16→22:16)
[2023-03-06] MEDS: HYDROmorphone HCL 2 MG/ML VL/or syr IV PRN ×9 (02:52→22:56)
[2023-03-06] MEDS: CEFEPIME 2 GM in SODIUM CHL 0.9% 50 ML IV SCH ×2 (04:30→16:00)
[2023-03-06 05:00] VITALS: BP 121/61
[2023-03-06 06:16] LABS: Basophils # (auto) 0 10 ^3/uL (0-0.2); Basophils % (auto) 0.1 % (0.0-2.0); Eosinophils # (auto) 0 10 ^3/uL (0-0.8); Lymphocytes # (auto) 1.1 10 ^3/uL (0.4-5.4); Monocytes # (auto) 0.8 10 ^3/uL (0-1.3)
[2023-03-06 06:22] LABS: Hematocrit 28.6 % (41.0-53.0); Hemoglobin 9.4 g/dL (13.5-17.5); Lymphocytes % (auto) 7.2 % (10.0-50.0); Mean Corpuscular Hemoglobin 23.4 pg (28.0-32.0); Mean Corpuscular Hgb Conc. 32.8 g/dL (32.0-36.0); Mean Corpuscular Volume 71.3 fL (80.0-100.0); Monocytes % (auto) 5.5 % (0.0-12.0); Neutrophils # (auto) 13.2 10 ^3/uL (1.6-8.6); Neutrophils % (auto) 87.2 % (37.0-80.0); Nucleated Red Blood Cells % 0.1 %; Red Blood Cells 4.02 10^6/uL (4.5-5.90); Red Cell Distribution Width 17.3 % (11.8-14.3); White Blood Cell 15.1 10^3/uL (4.4-10.8)
[2023-03-06 06:38] LABS: BUN/Creatinine Ratio 28.6 (10.0-20.0); Calcium 8.7 mg/dL (8.5-10.1); Potassium 4.7 mmol/L (3.5-5.1)
[2023-03-06] MEDS: InsuLIN REG 1unit/0.01ml Soln (100units/ml) SC SCH ×4 (06:49→22:15)
[2023-03-06] MEDS: ACCU-CHEK COMFORT CURVE STRIP VI SCH ×4 (06:50→22:21)
[2023-03-06 08:00] VITALS: BP 121/72
[2023-03-06 08:15] VITALS: BP 138/71
[2023-03-06] MEDS: ENOXAPARIN SOD 40 MG/0.4 ML SYRINGE SC SCH (09:22)
[2023-03-06] MEDS: ASPirin 81 mg TAB PO SCH (09:22)
[2023-03-06] MEDS: SODIUM CHLOR 0.9% PF (SALINE LOCK) 10ML VIAL/SYR IV SCH ×2 (10:00→22:20)
[2023-03-06 12:00] VITALS: BP 127/71
[2023-03-06] MEDS: SODIUM CHLORIDE 0.9% 1,000 ML IV SCH ×2 (13:15→22:21)
[2023-03-06 17:00] VITALS: BP 122/63
[2023-03-06 22:00] VITALS: BP 116/78
[2023-03-06] MEDS: ATORVASTATIN 20 MG TAB PO SCH (22:16)
[2023-03-06] MEDS: VANCOMYCIN 1GM/250ML 250 ML IV SCH (23:11)
[2023-03-07] MEDS: HYDROmorphone HCL 2 MG/ML VL/or syr IV PRN ×6 (03:16→23:00)
[2023-03-07] MEDS: CEFEPIME 2 GM in SODIUM CHL 0.9% 50 ML IV SCH ×2 (04:35→16:58)
[2023-03-07 05:00] VITALS: BP 131/66
[2023-03-07 05:52] LABS: Basophils # (auto) 0 10 ^3/uL (0-0.2); Basophils % (auto) 0.3 % (0.0-2.0); Eosinophils # (auto) 0.1 10 ^3/uL (0-0.8); Hemoglobin 9.4 g/dL (13.5-17.5); Neutrophils # (auto) 10.3 10 ^3/uL (1.6-8.6)
[2023-03-07 05:55] LABS: Eosinophils % (auto) 0.7 % (0.0-7.0); Hematocrit 29.7 % (41.0-53.0); Lymphocytes # (auto) 3.4 10 ^3/uL (0.4-5.4); Lymphocytes % (auto) 22.8 % (10.0-50.0); Mean Corpuscular Hemoglobin 23.5 pg (28.0-32.0); Mean Corpuscular Hgb Conc. 31.8 g/dL (32.0-36.0); Mean Corpuscular Volume 73.8 fL (80.0-100.0); Monocytes # (auto) 1.1 10 ^3/uL (0-1.3); Monocytes % (auto) 7.4 % (0.0-12.0); Neutrophils % (auto) 68.8 % (37.0-80.0); Red Blood Cells 4.02 10^6/uL (4.5-5.90); Red Cell Distribution Width 16.9 % (11.8-14.3)
[2023-03-07 06:09] LABS: Calcium 8.4 mg/dL (8.5-10.1); Potassium 4.2 mmol/L (3.5-5.1)
[2023-03-07] MEDS: InsuLIN REG 1unit/0.01ml Soln (100units/ml) SC SCH ×4 (06:55→22:10)
[2023-03-07] MEDS: ACCU-CHEK COMFORT CURVE STRIP VI SCH ×4 (06:56→22:11)
[2023-03-07] MEDS: SODIUM CHLOR 0.9% PF (SALINE LOCK) 10ML VIAL/SYR IV SCH ×2 (08:53→22:11)
[2023-03-07] MEDS: ASPirin 81 mg TAB PO SCH (08:53)
[2023-03-07] MEDS: ENOXAPARIN SOD 40 MG/0.4 ML SYRINGE SC SCH (08:53)
[2023-03-07 09:00] VITALS: BP 141/71
[2023-03-07] MEDS: OXYCODONE W/ ACETAMINOPHEN 5/325MG TABLET PO PRN ×2 (10:11→22:12)
[2023-03-07] MEDS: VANCOMYCIN 1GM/250ML 250 ML IV SCH ×2 (10:11→22:12)
[2023-03-07 13:00] VITALS: BP 158/85
[2023-03-07 17:00] VITALS: BP 145/71
[2023-03-07 19:40] VITALS: BP 142/57
[2023-03-07 22:00] VITALS: BP 142/57
[2023-03-07] MEDS: ATORVASTATIN 20 MG TAB PO SCH (22:11)
[2023-03-08] VITALS (7 sets, daily range): BP systolic 125–145; BP diastolic 57–85
[2023-03-08] MEDS: HYDROmorphone HCL 2 MG/ML VL/or syr IV PRN ×6 (03:01→23:11)
[2023-03-08] MEDS: CEFEPIME 2 GM in SODIUM CHL 0.9% 50 ML IV SCH ×2 (04:38→17:17)
[2023-03-08] MEDS: OXYCODONE W/ ACETAMINOPHEN 5/325MG TABLET PO PRN (05:57)
[2023-03-08 06:06] LABS: Basophils # (auto) 0.1 10 ^3/uL (0-0.2); Basophils % (auto) 0.6 % (0.0-2.0); Eosinophils # (auto) 0.3 10 ^3/uL (0-0.8); Eosinophils % (auto) 2.4 % (0.0-7.0); Lymphocytes # (auto) 3.5 10 ^3/uL (0.4-5.4); Monocytes # (auto) 0.9 10 ^3/uL (0-1.3); Neutrophils # (auto) 6.5 10 ^3/uL (1.6-8.6); Neutrophils % (auto) 57.9 % (37.0-80.0)
[2023-03-08 06:08] LABS: Hematocrit 29.1 % (41.0-53.0); Hemoglobin 9.8 g/dL (13.5-17.5); Lymphocytes % (auto) 31.1 % (10.0-50.0); Mean Corpuscular Hgb Conc. 33.6 g/dL (32.0-36.0); Mean Corpuscular Volume 71.2 fL (80.0-100.0); Red Blood Cells 4.09 10^6/uL (4.5-5.90); Red Cell Distribution Width 17.6 % (11.8-14.3); White Blood Cell 11.3 10^3/uL (4.4-10.8)
[2023-03-08 06:25] LABS: Calcium 8.7 mg/dL (8.5-10.1); Potassium 4.3 mmol/L (3.5-5.1)
[2023-03-08 06:28] LABS: BUN/Creatinine Ratio 22.9 (10.0-20.0)
[2023-03-08] MEDS: InsuLIN REG 1unit/0.01ml Soln (100units/ml) SC SCH ×4 (06:55→22:12)
[2023-03-08] MEDS: ACCU-CHEK COMFORT CURVE STRIP VI SCH ×4 (07:03→22:13)
[2023-03-08] MEDS: SODIUM CHLORIDE 0.9% 1,000 ML IV SCH ×2 (07:04→08:04)
[2023-03-08] MEDS: ASPirin 81 mg TAB PO SCH (09:27)
[2023-03-08] MEDS: ENOXAPARIN SOD 40 MG/0.4 ML SYRINGE SC SCH (09:28)
[2023-03-08] MEDS: VANCOMYCIN 1GM/250ML 250 ML IV SCH ×2 (09:57→20:56)
[2023-03-08] MEDS: SODIUM CHLOR 0.9% PF (SALINE LOCK) 10ML VIAL/SYR IV SCH ×2 (13:21→22:14)
[2023-03-08] MEDS ORDERED: INSULIN LANTUS (GLARGINE) 1 /0.01ml (100units/ml) SC ONE (15:15)
[2023-03-08 16:26] LABS: Cholesterol 106 mg/dL (< 200); HDL Cholesterol 35 mg/dL (40-59); LDL Cholesterol 56 mg/dL (< 100); Triglycerides 278 mg/dL (< 150)
[2023-03-08] MEDS: ATORVASTATIN 20 MG TAB PO SCH (22:14)
[2023-03-09] MEDS: HYDROmorphone HCL 2 MG/ML VL/or syr IV PRN ×6 (03:09→23:12)
[2023-03-09 05:00] VITALS: BP 149/77
[2023-03-09] MEDS: CEFEPIME 2 GM in SODIUM CHL 0.9% 50 ML IV SCH ×2 (05:00→16:12)
[2023-03-09] MEDS: VANCOMYCIN 1GM/250ML 250 ML IV SCH ×2 (05:45→16:11)
[2023-03-09] MEDS: InsuLIN REG 1unit/0.01ml Soln (100units/ml) SC SCH ×4 (06:48→22:33)
[2023-03-09] MEDS: INSULIN LANTUS (GLARGINE) 1 /0.01ml (100units/ml) SC SCH (06:49)
[2023-03-09] MEDS: ACCU-CHEK COMFORT CURVE STRIP VI SCH ×4 (06:50→22:34)
[2023-03-09 07:30] VITALS: BP 154/81
[2023-03-09] MEDS: SODIUM CHLORIDE 0.9% 1,000 ML IV SCH (07:55)
[2023-03-09] MEDS: ENOXAPARIN SOD 40 MG/0.4 ML SYRINGE SC SCH (11:09)
[2023-03-09] MEDS: ASPirin 81 mg TAB PO SCH (11:09)
[2023-03-09] MEDS: SODIUM CHLOR 0.9% PF (SALINE LOCK) 10ML VIAL/SYR IV SCH ×2 (11:14→22:33)
[2023-03-09 13:11] VITALS: BP 152/72
[2023-03-09] MEDS: OXYCODONE W/ ACETAMINOPHEN 5/325MG TABLET PO PRN (16:20)
[2023-03-09 17:38] VITALS: BP 147/79
[2023-03-09 22:00] VITALS: BP 118/76
[2023-03-09] MEDS: ATORVASTATIN 20 MG TAB PO SCH (22:33)
[2023-03-10] MEDS ORDERED: VANCOMYCIN 1GM/250ML 250 ML IV SCH (00:10)
[2023-03-10] MEDS: VANCOMYCIN 1GM/250ML 250 ML IV SCH ×3 (00:54→16:19)
[2023-03-10] MEDS: CEFEPIME 2 GM in SODIUM CHL 0.9% 50 ML IV SCH ×2 (03:08→16:00)
[2023-03-10] MEDS: HYDROmorphone HCL 2 MG/ML VL/or syr IV PRN ×2 (03:11→07:04)
[2023-03-10 05:00] VITALS: BP 155/88
[2023-03-10 06:42] LABS: Basophils # (auto) 0.1 10 ^3/uL (0-0.2); Eosinophils # (auto) 0.4 10 ^3/uL (0-0.8); Eosinophils % (auto) 3.7 % (0.0-7.0); Hematocrit 30.3 % (41.0-53.0); Hemoglobin 9.8 g/dL (13.5-17.5); Lymphocytes # (auto) 3.2 10 ^3/uL (0.4-5.4); Lymphocytes % (auto) 26.6 % (10.0-50.0); Mean Corpuscular Hemoglobin 23.1 pg (28.0-32.0); Mean Corpuscular Hgb Conc. 32.3 g/dL (32.0-36.0); Mean Corpuscular Volume 71.4 fL (80.0-100.0); Monocytes # (auto) 0.9 10 ^3/uL (0-1.3); Monocytes % (auto) 7.3 % (0.0-12.0); Neutrophils # (auto) 7.4 10 ^3/uL (1.6-8.6); Neutrophils % (auto) 61.4 % (37.0-80.0); Nucleated Red Blood Cells % 0.1 %; Red Blood Cells 4.24 10^6/uL (4.5-5.90); Red Cell Distribution Width 17.2 % (11.8-14.3); White Blood Cell 12.1 10^3/uL (4.4-10.8)
[2023-03-10] MEDS: SODIUM CHLORIDE 0.9% 1,000 ML IV SCH (06:47)
[2023-03-10] MEDS: InsuLIN REG 1unit/0.01ml Soln (100units/ml) SC SCH ×4 (06:49→22:00)
[2023-03-10] MEDS: INSULIN LANTUS (GLARGINE) 1 /0.01ml (100units/ml) SC SCH (06:49)
[2023-03-10] MEDS: ACCU-CHEK COMFORT CURVE STRIP VI SCH ×4 (06:52→22:00)
[2023-03-10 07:06] LABS: Potassium 3.9 mmol/L (3.5-5.1)
[2023-03-10 07:09] LABS: BUN/Creatinine Ratio 21.9 (10.0-20.0); Calcium 8.8 mg/dL (8.5-10.1)
[2023-03-10] MEDS: SODIUM CHLOR 0.9% PF (SALINE LOCK) 10ML VIAL/SYR IV SCH ×2 (08:42→22:00)
[2023-03-10] MEDS: ASPirin 81 mg TAB PO SCH (08:42)
[2023-03-10] MEDS: ENOXAPARIN SOD 40 MG/0.4 ML SYRINGE SC SCH (08:42)
[2023-03-10 09:00] VITALS: BP 157/77
[2023-03-10] MEDS: OXYCODONE W/ ACETAMINOPHEN 5/325MG TABLET PO PRN ×2 (09:28→14:23)
[2023-03-10] MEDS ORDERED: LEVO500T31 PO (09:47)
[2023-03-10] MEDS: MORPHINE SULFATE INJ 2 MG/ml SYRG IV PRN (11:23)
[2023-03-10 13:00] VITALS: BP 167/77
[2023-03-10 17:00] VITALS: BP 139/76
[2023-03-10 20:00] VITALS: BP 142/76
[2023-03-10 22:00] VITALS: BP 181/101
[2023-03-10] MEDS: ATORVASTATIN 20 MG TAB PO SCH (22:00)
[2023-03-11] MEDS: VANCOMYCIN 1GM/250ML 250 ML IV SCH ×3 (00:10→16:10)
[2023-03-11] MEDS: OXYCODONE W/ ACETAMINOPHEN 5/325MG TABLET PO PRN ×2 (00:45→13:41)
[2023-03-11] MEDS: CEFEPIME 2 GM in SODIUM CHL 0.9% 50 ML IV SCH ×2 (04:00→16:00)
[2023-03-11 05:00] VITALS: BP 168/82
[2023-03-11] MEDS: INSULIN LANTUS (GLARGINE) 1 /0.01ml (100units/ml) SC SCH (06:23)
[2023-03-11] MEDS: InsuLIN REG 1unit/0.01ml Soln (100units/ml) SC SCH ×2 (06:24→11:51)
[2023-03-11] MEDS: ACCU-CHEK COMFORT CURVE STRIP VI SCH ×2 (06:26→11:49)
[2023-03-11 08:00] VITALS: BP 167/84
[2023-03-11] MEDS: ENOXAPARIN SOD 40 MG/0.4 ML SYRINGE SC SCH (10:30)
[2023-03-11] MEDS: ASPirin 81 mg TAB PO SCH (10:30)
[2023-03-11] MEDS: MORPHINE SULFATE INJ 2 MG/ml SYRG IV PRN (10:31)
[2023-03-11] MEDS: SODIUM CHLOR 0.9% PF (SALINE LOCK) 10ML VIAL/SYR IV SCH (10:34)
[2023-03-11 13:00] VITALS: BP 152/64
== END 2023-03-11 16:34 | disposition home health service (06) | DRG 853 ==
LOC: ER 17:19 → WEST WING 21:14
PROVIDERS: ADMIT Nurse Practitioner; ATTEND Internal Medicine
PROC: 02H633Z Insertion of Infusion Device into Right Atrium, Percutaneous Approach (ICD-10-PCS; 2023-03-05)
PROC: B548ZZA Ultrasonography of Superior Vena Cava, Guidance (ICD-10-PCS; 2023-03-05)
PROC: 0QBP0ZZ Excision of Left Metatarsal, Open Approach (ICD-10-PCS; principal; 2023-03-05 10:47)
DX: A41.9 Sepsis, unspecified organism (principal); N17.0 Acute kidney failure with tubular necrosis; E44.0 Moderate protein-calorie malnutrition; Z68.41 Body mass index [BMI] 40.0-44.9, adult; Z20.822 Contact with and (suspected) exposure to COVID-19; M86.8X7 Other osteomyelitis, ankle and foot; E11.21 Type 2 diabetes mellitus with diabetic nephropathy; E78.5 Hyperlipidemia, unspecified; I10 Essential (primary) hypertension; L08.9 Local infection of the skin and subcutaneous tissue, unspecified; E66.01 Morbid (severe) obesity due to excess calories; Z90.49 Acquired absence of other specified parts of digestive tract
CPT/HCPCS: 36415; 36569; 71045; 73700; 73720; 80048; 80053; 80061; 80202; 81001; 82306; 82565; 82962; 83036; 85025; 85610; 85730; 86850; 86900; 86901; 87040; 87070; 87075; 87205; 87426; 93005; 96365; 96367; 96368; 96372; 96375; G0378; J0690; J1100; J1815; J1885; J2001; J2405; J2543; J2704; J3490

== ENCOUNTER → 2023-03-14 | Outpatient (CLI) | payer BC ==
[~2023-03-14] MED LIST changes: +AML5T PO; -HYDR-4798 PO; +LEVO500T31 PO; +PERCOT PO; +PREG50CA PO
[2023-03-14 14:47] LABS: Calcium 9.4 mg/dL (8.5-10.1); Potassium 4.3 mmol/L (3.5-5.1)
[2023-03-14 14:57] LABS: BUN/Creatinine Ratio 29.5 (10.0-20.0); Bilirubin, Total 0.2 mg/dL (0.2-1.0); Total Protein 7.4 g/dL (6.4-8.2)
== END | disposition home or self-care (01) ==
LOC: LAB 13:18
PROVIDERS: ATTEND Nurse Practitioner Family
DX: L97.529 Non-pressure chronic ulcer of other part of left foot with unspecified severity (principal)
CPT/HCPCS: 36415; 80053

== ENCOUNTER → 2023-05-19 | Outpatient (CLI) | payer BC, MEDICARE ==
[~2023-05-19] MED LIST changes: -CEPH-322 PO; +CEPH250C PO; -LISI40TA11 PO; +LISI40TA16 PO
[2023-05-19 13:04] LABS: Eosinophils # (auto) 0.4 10 ^3/uL (0-0.8); Lymphocytes # (auto) 2.5 10 ^3/uL (0.4-5.4); Lymphocytes % (auto) 28.5 % (10.0-50.0); Mean Corpuscular Hemoglobin 20.8 pg (28.0-32.0); Monocytes # (auto) 0.6 10 ^3/uL (0-1.3); Nucleated Red Blood Cells % 0.1 %
[2023-05-19 13:06] LABS: Basophils # (auto) 0.1 10 ^3/uL (0-0.2); Basophils % (auto) 0.8 % (0.0-2.0); Eosinophils % (auto) 4.2 % (0.0-7.0); Hematocrit 33.8 % (41.0-53.0); Hemoglobin 10.5 g/dL (13.5-17.5); Mean Corpuscular Volume 67.1 fL (80.0-100.0); Monocytes % (auto) 7.2 % (0.0-12.0); Neutrophils # (auto) 5.2 10 ^3/uL (1.6-8.6); Neutrophils % (auto) 59.3 % (37.0-80.0); Red Blood Cells 5.03 10^6/uL (4.5-5.90); Red Cell Distribution Width 18.4 % (11.8-14.3); White Blood Cell 8.7 10^3/uL (4.4-10.8)
[2023-05-19 14:12] LABS: Albumin 3.3 g/dL (3.4-5.0); Calcium 8.4 mg/dL (8.5-10.1); Potassium 3.7 mmol/L (3.5-5.1)
[2023-05-19 14:17] LABS: BUN/Creatinine Ratio 20.1 (10.0-20.0); Bilirubin, Total 0.6 mg/dL (0.2-1.0); Total Protein 8.1 g/dL (6.4-8.2)
[2023-05-19 18:08] LABS: Free T4 (Free Thyroxine) 1.06 ng/dL (0.89-1.76); Prostate Specific Antigen 1.17 ng/mL (0.0-4.0)
== END | disposition home or self-care (01) ==
LOC: LAB 12:43
DX: E11.21 Type 2 diabetes mellitus with diabetic nephropathy (principal); R35.1 Nocturia
CPT/HCPCS: 36415; 80053; 82043; 82306; 82570; 84153; 84439; 84443; 85025

== ENCOUNTER 2023-07-09 06:20 | Day surgery (SDC) | payer MEDICARE ==
[2023-07-08 14:30] LABS: Eosinophils # (auto) 0.2 10 ^3/uL (0-0.8); Monocytes # (auto) 0.8 10 ^3/uL (0-1.3)
[2023-07-08 14:32] LABS: Basophils # (auto) 0.1 10 ^3/uL (0-0.2); Basophils % (auto) 0.5 % (0.0-2.0); Eosinophils % (auto) 1.3 % (0.0-7.0); Hematocrit 36.8 % (41.0-53.0); Lymphocytes # (auto) 2.1 10 ^3/uL (0.4-5.4); Lymphocytes % (auto) 12.9 % (10.0-50.0); Mean Corpuscular Hemoglobin 20.5 pg (28.0-32.0); Mean Corpuscular Hgb Conc. 29.9 g/dL (32.0-36.0); Mean Corpuscular Volume 68.8 fL (80.0-100.0); Monocytes % (auto) 4.9 % (0.0-12.0); Neutrophils # (auto) 12.9 10 ^3/uL (1.6-8.6); Neutrophils % (auto) 80.4 % (37.0-80.0); Red Blood Cells 5.34 10^6/uL (4.5-5.90)
[2023-07-08 14:40] LABS: INR 1.05 (0.9-1.15); Partial Thromboplastin Time 32.3 SEC (24.5-34.5)
[2023-07-08 15:06] LABS: Albumin 3.4 g/dL (3.4-5.0); Potassium 3.8 mmol/L (3.5-5.1)
[2023-07-08 15:09] LABS: BUN/Creatinine Ratio 24.4 (10.0-20.0); Bilirubin, Total 0.4 mg/dL (0.2-1.0); Total Protein 8.9 g/dL (6.4-8.2)
[2023-07-08 15:29] LABS: Red Cell Distribution Width 20.6 % (11.8-14.3)
[2023-07-08 17:11] LABS: Anisocytosis Slight; Hypochromia Marked; Ovalocytes FEW; Platelet Estimate Adequate
[2023-07-08 17:12] LABS: Tear Drop Cells FEW
[~2023-07-09] VITALS: Ht 177.8 cm; Wt 124.7 kg
[~2023-07-09 06:20] MED LIST changes: -CEPH250C PO; -LEVO500T31 PO
[2023-07-09] MEDS ORDERED: ceFAZolin 1GM VL ONE (06:43)
[2023-07-09] MEDS ORDERED: BACITRACIN TOP OINT 1 UD PKG TOP ONE (06:44)
[2023-07-09] MEDS ORDERED: ROPIVACAINE 0.5% (5MG/ML) 20ML AMPULE IJ ONE (06:45)
[2023-07-09] MEDS ORDERED: ceFAZolin 1GM/50ML 100 ML IV ONE (07:04)
[2023-07-09] MEDS ORDERED: SUCCINYLCHOLINE CHLORIDE 20 MG/ML 10ML VIAL IV ONE (07:23)
[2023-07-09] MEDS ORDERED: fentaNYL CITRATE 100 MCG/2 ML VL ONE (07:24)
[2023-07-09] MEDS ORDERED: MIDAZOLAM HCL 2MG/2ML 2ml VIAL (1mg/ml) ONE (07:24)
[2023-07-09] MEDS ORDERED: ceFAZolin 1GM/50ML 50 ML IV ONE (07:32)
[2023-07-09] MEDS ORDERED: LIDOCAINE 2% (LOCAL ANESTH.) PF 5ml SDV ONE (07:32)
[2023-07-09] MEDS ORDERED: PROPOFOL 10 MG/ML 20 ML IV ONE (07:32)
[2023-07-09] MEDS ORDERED: ONDANSETRON HCL 4 MG/2 ML VIAL ONE (07:32)
[2023-07-09 08:07] VITALS: TEMP 98.7
[2023-07-09] MEDS ORDERED: ONDANSETRON HCL 4 MG/2 ML VIAL IV PRN (08:30)
[2023-07-09] MEDS ORDERED: HYDROmorphone HCL 2 MG/ML VL/or syr IV PRN ×2 (08:30)
[2023-07-09] MEDS ORDERED: OXYCODONE W/ ACETAMINOPHEN 5/325MG TABLET PO ONE (08:30)
[2023-07-09 09:28] VITALS: BP 107/51; PULSE 76; RESP 17; O2SAT 94
== END 2023-07-09 09:30 | disposition home or self-care (01) ==
LOC: SUR 06:20
PROVIDERS: ATTEND Podiatrist Foot & Ankle Surgery
DX: E11.622 Type 2 diabetes mellitus with other skin ulcer (principal); L97.529 Non-pressure chronic ulcer of other part of left foot with unspecified severity
CPT/HCPCS: 15275; 36415; 80053; 82962; 85025; 85610; 85730; 87070; 87075; 87205; C1887; J0330; J0690; J1170; J2001; J2250; J2405; J2704; J2795; J3010

== ENCOUNTER 2023-07-31 18:46 | Inpatient (IN) | payer MEDICARE ==
[~2023-07-31] VITALS: Ht 177.8 cm; Wt 130.1 kg
[2023-07-31] MEDS ORDERED: VANCOMYCIN 1GM/250ML 250 ML IV ONE (19:30)
[2023-07-31] MEDS ORDERED: CEFEPIME 1GM/ 50ML 50 ML IV ONE (19:30)
[2023-07-31] MEDS ORDERED: HYDROmorphone HCL 2 MG/ML VL/or syr IV ONE (19:30)
[2023-07-31 20:23] LABS: Basophils # (auto) 0 10 ^3/uL (0-0.2); Basophils % (auto) 0.4 % (0.0-2.0); Eosinophils # (auto) 0.2 10 ^3/uL (0-0.8); Eosinophils % (auto) 1.7 % (0.0-7.0); Hemoglobin 10.2 g/dL (13.5-17.5); Lymphocytes # (auto) 1.9 10 ^3/uL (0.4-5.4); Lymphocytes % (auto) 13.3 % (10.0-50.0); Mean Corpuscular Hemoglobin 20.9 pg (28.0-32.0); Mean Corpuscular Hgb Conc. 30.8 g/dL (32.0-36.0); Mean Corpuscular Volume 67.8 fL (80.0-100.0); Monocytes # (auto) 0.9 10 ^3/uL (0-1.3); Monocytes % (auto) 6.3 % (0.0-12.0); Neutrophils % (auto) 78.3 % (37.0-80.0); Red Blood Cells 4.87 10^6/uL (4.5-5.90)
[2023-07-31 20:25] LABS: Red Cell Distribution Width 20.2 % (11.8-14.3)
[2023-07-31 20:43] LABS: Alanine Aminotransferase 26 U/L (7-40); Albumin 3.7 g/dL (3.2-4.8); Alkaline Phosphatase 105 U/L (46-116); Aspartate Aminotransferase 15 U/L (13-40); BUN/Creatinine Ratio 27.4 (10.0-20.0); Blood Urea Nitrogen 34 mg/dL (9-23); Calcium 8.9 mg/dL (8.5-10.1); Chloride 102 mmol/L (98-107); Glucose 336 mg/dL (74-106); Potassium 4.2 mmol/L (3.5-5.1); Sodium 135 mmol/L (136-145)
[2023-07-31 20:44] LABS: Bilirubin, Total 0.4 mg/dL (0.2-1.0); Total Protein 7.2 g/dL (5.7-8.2)
[2023-07-31] MEDS ORDERED: MORPHINE SULFATE INJ 2 MG/ml SYRG IV PRN ×2 (21:15)
[2023-07-31] MEDS ORDERED: ONDANSETRON HCL 4 MG/2 ML VIAL IV PRN (21:15)
[2023-07-31] MEDS ORDERED: DEXTROSE (50%) 50ML SYRG IV PRN (21:15)
[2023-07-31] MEDS ORDERED: NITROGLYCERIN 0.4 MG SL TAB SL PRN (21:15)
[2023-07-31] MEDS ORDERED: ACETAMINOPHEN 325 MG TAB PO PRN (21:15)
[2023-07-31] MEDS ORDERED: VANCOMYCIN PER PHARMACY 0 MG IV SCH (21:15)
[2023-07-31] MEDS: SODIUM CHLORIDE 0.9% 1,000 ML IV SCH (21:34)
[2023-07-31] MEDS ORDERED: KETOROLAC TROMETH 30 MG/ML 1ML VIAL IV ONE (21:45)
[2023-07-31] MEDS ORDERED: TEMAZEPAM 15 MG CAP PO PRN (21:45)
[2023-07-31] MEDS: ATORVASTATIN 20 MG TAB PO SCH (22:00)
[2023-07-31] MEDS ORDERED: VANCOMYCIN 1GM/250ML 250 ML IV SCH (23:00)
[2023-08-01] MEDS: ACCU-CHEK COMFORT CURVE STRIP VI SCH ×5 (00:16→23:39)
[2023-08-01] MEDS: InsuLIN REG 1unit/0.01ml Soln (100units/ml) SC SCH ×4 (00:16→17:37)
[2023-08-01] MEDS: HYDROmorphone HCL 2 MG/ML VL/or syr IV PRN ×5 (00:19→23:35)
[2023-08-01 02:56] VITALS: PULSE 82; RESP 21; O2SAT 94
[2023-08-01] MEDS: CEFEPIME 1GM/ 50ML 50 ML IV SCH ×2 (05:52→16:45)
[2023-08-01 06:17] LABS: Basophils # (auto) 0.1 10 ^3/uL (0-0.2); Mean Corpuscular Volume 68.4 fL (80.0-100.0); Neutrophils # (auto) 8.6 10 ^3/uL (1.6-8.6); Red Cell Distribution Width 19.7 % (11.8-14.3)
[2023-08-01 06:21] LABS: Basophils % (auto) 0.5 % (0.0-2.0); Eosinophils # (auto) 0.5 10 ^3/uL (0-0.8); Eosinophils % (auto) 3.6 % (0.0-7.0); Hemoglobin 9.8 g/dL (13.5-17.5); Lymphocytes # (auto) 2.9 10 ^3/uL (0.4-5.4); Lymphocytes % (auto) 22.3 % (10.0-50.0); Mean Corpuscular Hgb Conc. 30.6 g/dL (32.0-36.0); Monocytes % (auto) 7.6 % (0.0-12.0); Red Blood Cells 4.68 10^6/uL (4.5-5.90)
[2023-08-01 06:41] LABS: Alanine Aminotransferase 23 U/L (7-40); Albumin 3.8 g/dL (3.2-4.8); Alkaline Phosphatase 94 U/L (46-116); Anion Gap 5.2 (5-15); Aspartate Aminotransferase 10 U/L (13-40); BUN/Creatinine Ratio 19.3 (10.0-20.0); Bilirubin, Total 0.5 mg/dL (0.2-1.0); Calcium 8.9 mg/dL (8.7-10.4); Carbon Dioxide 26.8 mmol/L (20-30); Chloride 105 mmol/L (98-107); Potassium 3.8 mmol/L (3.5-5.1); Sodium 137 mmol/L (136-145); Total Protein 7.6 g/dL (5.7-8.2)
[2023-08-01 07:01] LABS: Blood Urea Nitrogen 23 mg/dL (9-23); Glucose 191 mg/dL (74-106)
[2023-08-01 07:35] VITALS: PULSE 74; RESP 13
[2023-08-01] MEDS: amLODIPine BESYLATE 5 MG TAB PO SCH (09:40)
[2023-08-01] MEDS: ASPirin 81 mg TAB PO SCH (09:40)
[2023-08-01] MEDS: VANCOMYCIN 1GM/250ML 250 ML IV SCH ×3 (13:33→23:37)
[2023-08-01] MEDS: SODIUM CHLORIDE 0.9% 1,000 ML IV SCH (16:44)
[2023-08-01] MEDS: hydrALAZINE HCL 20 MG/ML VL IV PRN (17:21)
[2023-08-01 18:47] VITALS: RESP 18
[2023-08-01 21:58] VITALS: BP 117/66; PULSE 75; RESP 20; TEMP 98.5; O2SAT 93
[2023-08-01] MEDS: ATORVASTATIN 20 MG TAB PO SCH (23:36)
[2023-08-02] VITALS (7 sets, daily range): BP systolic 146–173; BP diastolic 71–99; PULSE 69–84; RESP 18–22; TEMP 97.4–98.4; O2SAT 92–96
[2023-08-02] MEDS: InsuLIN REG 1unit/0.01ml Soln (100units/ml) SC SCH ×4 (00:06→17:03)
[2023-08-02] MEDS: CEFEPIME 1GM/ 50ML 50 ML IV SCH ×4 (00:07→21:22)
[2023-08-02] MEDS: HYDROmorphone HCL 2 MG/ML VL/or syr IV PRN ×4 (03:38→21:24)
[2023-08-02] MEDS: ACCU-CHEK COMFORT CURVE STRIP VI SCH ×3 (05:58→17:02)
[2023-08-02] MEDS: SODIUM CHLORIDE 0.9% 1,000 ML IV SCH ×2 (05:58→23:15)
[2023-08-02 06:25] LABS: Eosinophils # (auto) 0.4 10 ^3/uL (0-0.8); Eosinophils % (auto) 3.7 % (0.0-7.0); Monocytes # (auto) 0.8 10 ^3/uL (0-1.3); White Blood Cell 11.5 10^3/uL (4.4-10.8)
[2023-08-02 06:28] LABS: Basophils # (auto) 0.1 10 ^3/uL (0-0.2); Basophils % (auto) 0.6 % (0.0-2.0); Hematocrit 31.2 % (41.0-53.0); Hemoglobin 9.8 g/dL (13.5-17.5); Lymphocytes # (auto) 1.9 10 ^3/uL (0.4-5.4); Lymphocytes % (auto) 16.7 % (10.0-50.0); Mean Corpuscular Hemoglobin 21.4 pg (28.0-32.0); Mean Corpuscular Hgb Conc. 31.3 g/dL (32.0-36.0); Mean Corpuscular Volume 68.3 fL (80.0-100.0); Monocytes % (auto) 6.9 % (0.0-12.0); Neutrophils # (auto) 8.3 10 ^3/uL (1.6-8.6); Neutrophils % (auto) 72.1 % (37.0-80.0); Red Blood Cells 4.56 10^6/uL (4.5-5.90); Red Cell Distribution Width 19.7 % (11.8-14.3)
[2023-08-02 07:52] LABS: Anion Gap 6.7 (5-15); Calcium 8.8 mg/dL (8.5-10.1); Carbon Dioxide 27.3 mmol/L (20-30); Chloride 104 mmol/L (98-107); Potassium 3.7 mmol/L (3.5-5.1); Sodium 138 mmol/L (136-145)
[2023-08-02 07:58] LABS: BUN/Creatinine Ratio 17.6 (10.0-20.0); Blood Urea Nitrogen 19 mg/dL (9-23); Glucose 166 mg/dL (74-106)
[2023-08-02] MEDS: ASPirin 81 mg TAB PO SCH (09:12)
[2023-08-02] MEDS: amLODIPine BESYLATE 5 MG TAB PO SCH (09:12)
[2023-08-02] MEDS: VANCOMYCIN 1GM/250ML 250 ML IV SCH (12:07)
[2023-08-02] MEDS: hydrALAZINE HCL 20 MG/ML VL IV PRN (17:02)
[2023-08-02] MEDS: ATORVASTATIN 20 MG TAB PO SCH (21:22)
[2023-08-03] MEDS: VANCOMYCIN 1GM/250ML 250 ML IV SCH ×3 (01:56→23:55)
[2023-08-03] MEDS: ACCU-CHEK COMFORT CURVE STRIP VI SCH ×4 (01:56→17:56)
[2023-08-03] MEDS: InsuLIN REG 1unit/0.01ml Soln (100units/ml) SC SCH ×4 (02:05→17:56)
[2023-08-03] MEDS: HYDROcodone-ACET 5/325MG TAB PO PRN (02:20)
[2023-08-03] MEDS: HYDROmorphone HCL 2 MG/ML VL/or syr IV PRN ×4 (03:29→21:40)
[2023-08-03 05:00] VITALS: BP 152/79; PULSE 62; RESP 18; TEMP 97.9; O2SAT 94
[2023-08-03] MEDS: CEFEPIME 1GM/ 50ML 50 ML IV SCH ×3 (05:48→21:39)
[2023-08-03 08:00] VITALS: BP 171/89; PULSE 72; RESP 12; TEMP 97.9; O2SAT 95
[2023-08-03 09:00] VITALS: BP 171/89; PULSE 72; RESP 12; TEMP 97.9; O2SAT 95
[2023-08-03] MEDS: amLODIPine BESYLATE 5 MG TAB PO SCH (09:22)
[2023-08-03] MEDS: ASPirin 81 mg TAB PO SCH (09:22)
[2023-08-03] MEDS: hydrALAZINE HCL 20 MG/ML VL IV PRN (09:22)
[2023-08-03 13:00] VITALS: BP 161/85; PULSE 74; RESP 16; TEMP 98.3; O2SAT 99
[2023-08-03] MEDS: SODIUM CHLORIDE 0.9% 1,000 ML IV SCH (15:26)
[2023-08-03 17:00] VITALS: BP 146/65; PULSE 77; RESP 16; TEMP 98.2; O2SAT 99
[2023-08-03] MEDS: ATORVASTATIN 20 MG TAB PO SCH (21:39)
[2023-08-03 22:00] VITALS: BP 159/78; PULSE 72; RESP 20; TEMP 98.1; O2SAT 96
[2023-08-04] VITALS (7 sets, daily range): BP systolic 139–183; BP diastolic 81–93; PULSE 65–87; RESP 16–22; TEMP 97.7–98.2; O2SAT 90–97
[2023-08-04] MEDS: InsuLIN REG 1unit/0.01ml Soln (100units/ml) SC SCH ×4 (00:03→18:01)
[2023-08-04] MEDS: HYDROmorphone HCL 2 MG/ML VL/or syr IV PRN ×4 (03:34→21:55)
[2023-08-04] MEDS: CEFEPIME 1GM/ 50ML 50 ML IV SCH ×3 (05:43→20:54)
[2023-08-04] MEDS: ACCU-CHEK COMFORT CURVE STRIP VI SCH ×4 (05:48→17:27)
[2023-08-04] MEDS: SODIUM CHLORIDE 0.9% 1,000 ML IV SCH (09:56)
[2023-08-04] MEDS: ASPirin 81 mg TAB PO SCH (09:59)
[2023-08-04] MEDS: amLODIPine BESYLATE 5 MG TAB PO SCH (10:00)
[2023-08-04] MEDS: VANCOMYCIN 1GM/250ML 250 ML IV SCH (11:37)
[2023-08-04] MEDS: hydrALAZINE HCL 20 MG/ML VL IV PRN ×2 (11:38→17:43)
[2023-08-04] MEDS: HYDROcodone-ACET 5/325MG TAB PO PRN (13:32)
[2023-08-04] MEDS: ATORVASTATIN 20 MG TAB PO SCH (20:55)
[2023-08-05] VITALS (7 sets, daily range): BP systolic 130–180; BP diastolic 71–87; PULSE 65–91; RESP 16–22; TEMP 97.6–98; O2SAT 94–100
[2023-08-05] MEDS: VANCOMYCIN 1GM/250ML 250 ML IV SCH ×2 (00:32→12:35)
[2023-08-05] MEDS: ACCU-CHEK COMFORT CURVE STRIP VI SCH ×5 (00:39→23:26)
[2023-08-05] MEDS: InsuLIN REG 1unit/0.01ml Soln (100units/ml) SC SCH ×5 (00:41→23:27)
[2023-08-05] MEDS: SODIUM CHLORIDE 0.9% 1,000 ML IV SCH ×3 (00:46→18:37)
[2023-08-05] MEDS: HYDROmorphone HCL 2 MG/ML VL/or syr IV PRN ×4 (04:04→22:09)
[2023-08-05] MEDS: CEFEPIME 1GM/ 50ML 50 ML IV SCH ×3 (05:06→20:09)
[2023-08-05] MEDS: ASPirin 81 mg TAB PO SCH (10:17)
[2023-08-05] MEDS: amLODIPine BESYLATE 5 MG TAB PO SCH (10:17)
[2023-08-05] MEDS: hydrALAZINE HCL 20 MG/ML VL IV PRN (17:12)
[2023-08-05] MEDS: ATORVASTATIN 20 MG TAB PO SCH (22:07)
[2023-08-06] VITALS (8 sets, daily range): BP systolic 145–156; BP diastolic 76–89; PULSE 62–84; RESP 12–21; TEMP 97.5–98.5; O2SAT 90–97
[2023-08-06] MEDS: VANCOMYCIN 1GM/250ML 250 ML IV SCH ×2 (00:48→12:05)
[2023-08-06] MEDS: CEFEPIME 1GM/ 50ML 50 ML IV SCH ×3 (04:20→21:15)
[2023-08-06] MEDS: HYDROmorphone HCL 2 MG/ML VL/or syr IV PRN ×4 (04:23→23:01)
[2023-08-06] MEDS: ACCU-CHEK COMFORT CURVE STRIP VI SCH ×4 (05:24→23:17)
[2023-08-06] MEDS: InsuLIN REG 1unit/0.01ml Soln (100units/ml) SC SCH ×4 (05:24→23:17)
[2023-08-06 06:22] LABS: Alanine Aminotransferase 25 U/L (7-40); Alkaline Phosphatase 84 U/L (46-116); Anion Gap 5.6 (5-15); BUN/Creatinine Ratio 12.9 (10.0-20.0); Blood Urea Nitrogen 15 mg/dL (9-23); Calcium 8.8 mg/dL (8.5-10.1); Carbon Dioxide 27.4 mmol/L (20-30); Chloride 104 mmol/L (98-107); Potassium 3.5 mmol/L (3.5-5.1); Sodium 137 mmol/L (136-145)
[2023-08-06 06:23] LABS: Albumin 3.7 g/dL (3.2-4.8); Aspartate Aminotransferase 15 U/L (13-40); Bilirubin, Total 0.4 mg/dL (0.2-1.0); Total Protein 7.1 g/dL (5.7-8.2)
[2023-08-06 06:25] LABS: Basophils # (auto) 0.1 10 ^3/uL (0-0.2); Eosinophils # (auto) 0.3 10 ^3/uL (0-0.8); Eosinophils % (auto) 2.5 % (0.0-7.0)
[2023-08-06 06:28] LABS: Basophils % (auto) 0.6 % (0.0-2.0); Hematocrit 32.3 % (41.0-53.0); Hemoglobin 10.1 g/dL (13.5-17.5); Lymphocytes # (auto) 2.2 10 ^3/uL (0.4-5.4); Lymphocytes % (auto) 21.1 % (10.0-50.0); Mean Corpuscular Hemoglobin 21.4 pg (28.0-32.0); Mean Corpuscular Hgb Conc. 31.2 g/dL (32.0-36.0); Mean Corpuscular Volume 68.4 fL (80.0-100.0); Monocytes # (auto) 0.9 10 ^3/uL (0-1.3); Monocytes % (auto) 8.1 % (0.0-12.0); Neutrophils # (auto) 7.2 10 ^3/uL (1.6-8.6); Neutrophils % (auto) 67.7 % (37.0-80.0); Red Blood Cells 4.72 10^6/uL (4.5-5.90); White Blood Cell 10.6 10^3/uL (4.4-10.8)
[2023-08-06 06:37] LABS: Glucose 266 mg/dL (74-106)
[2023-08-06 06:39] LABS: Red Cell Distribution Width 20.2 % (11.8-14.3)
[2023-08-06] MEDS ORDERED: METOCLOPRAMIDE HCL 5MG/ml INJ 2ml VIAL IV PRN (07:45)
[2023-08-06] MEDS ORDERED: HYDROmorphone HCL 2 MG/ML VL/or syr IV PRN ×2 (07:45)
[2023-08-06] MEDS ORDERED: ACCU-CHEK COMFORT CURVE STRIP VI ONE (07:45)
[2023-08-06] MEDS ORDERED: MORPHINE SULFATE INJ 2 MG/ml SYRG IV PRN (07:45)
[2023-08-06] MEDS ORDERED: ceFAZolin 1GM/50ML 100 ML IV ONE (08:07)
[2023-08-06] MEDS ORDERED: MIDAZOLAM HCL 2MG/2ML 2ml VIAL (1mg/ml) ONE (08:17)
[2023-08-06] MEDS ORDERED: PROPOFOL 10 MG/ML 20 ML IV ONE (08:17)
[2023-08-06] MEDS ORDERED: fentaNYL CITRATE 100 MCG/2 ML VL ONE (08:17)
[2023-08-06] MEDS ORDERED: ONDANSETRON HCL 4 MG/2 ML VIAL ONE (08:17)
[2023-08-06] MEDS ORDERED: SODIUM CHLORIDE LOCK 20 ML ONE (08:17)
[2023-08-06 09:11] LABS: INR 1.09 (0.9-1.15); Partial Thromboplastin Time 30.6 SEC (24.5-34.5); Prothrombin Time 11.4 sec (9.3-11.8)
[2023-08-06] MEDS ORDERED: ceFAZolin 1GM VL ONE (09:40)
[2023-08-06] MEDS: ASPirin 81 mg TAB PO SCH (11:07)
[2023-08-06] MEDS: amLODIPine BESYLATE 5 MG TAB PO SCH (11:07)
[2023-08-06] MEDS: SODIUM CHLORIDE 0.9% 1,000 ML IV SCH (11:26)
[2023-08-06] MEDS: hydrALAZINE HCL 20 MG/ML VL IV PRN (17:09)
[2023-08-06] MEDS: ATORVASTATIN 20 MG TAB PO SCH (21:15)
[2023-08-07] VITALS (12 sets, daily range): BP systolic 137–172; BP diastolic 74–91; PULSE 56–83; RESP 16–24; TEMP 97.9–98.4; O2SAT 89–96
[2023-08-07] MEDS: VANCOMYCIN 1GM/250ML 250 ML IV SCH ×3 (01:40→23:42)
[2023-08-07] MEDS: SODIUM CHLORIDE 0.9% 1,000 ML IV SCH ×2 (03:15→20:17)
[2023-08-07] MEDS: CEFEPIME 1GM/ 50ML 50 ML IV SCH ×3 (05:01→20:10)
[2023-08-07] MEDS: HYDROmorphone HCL 2 MG/ML VL/or syr IV PRN ×4 (05:02→23:34)
[2023-08-07] MEDS: InsuLIN REG 1unit/0.01ml Soln (100units/ml) SC SCH ×4 (06:00→23:56)
[2023-08-07] MEDS: ACCU-CHEK COMFORT CURVE STRIP VI SCH ×4 (06:16→23:56)
[2023-08-07] MEDS: ASPirin 81 mg TAB PO SCH (09:34)
[2023-08-07] MEDS: amLODIPine BESYLATE 5 MG TAB PO SCH (09:35)
[2023-08-07] MEDS ORDERED: ANGIOMAX 250 MG VIAL IV ONE (14:06)
[2023-08-07] MEDS ORDERED: LIDOCAINE 2%HCL (LOCAL ANESTH.) INJ 20ML MDV ONE (14:07)
[2023-08-07] MEDS ORDERED: MIDAZOLAM HCL 2MG/2ML 2ml VIAL (1mg/ml) ONE (14:07)
[2023-08-07] MEDS ORDERED: SODIUM CHL 0.9% 50 ML ONE (14:07)
[2023-08-07] MEDS ORDERED: fentaNYL CITRATE 100 MCG/2 ML VL ONE (14:07)
[2023-08-07] MEDS: hydrALAZINE HCL 20 MG/ML VL IV PRN (15:55)
[2023-08-07] MEDS: ATORVASTATIN 20 MG TAB PO SCH (21:33)
[2023-08-07] MEDS: DOCUSATE SOD 100 MG CAP PO PRN (23:48)
[2023-08-08 05:00] VITALS: BP 178/95; PULSE 73; RESP 20; TEMP 98.5; O2SAT 96
[2023-08-08] MEDS: CEFEPIME 1GM/ 50ML 50 ML IV SCH ×2 (05:30→13:00)
[2023-08-08] MEDS: HYDROmorphone HCL 2 MG/ML VL/or syr IV PRN ×2 (05:36→11:30)
[2023-08-08] MEDS: ACCU-CHEK COMFORT CURVE STRIP VI SCH ×2 (05:36→11:24)
[2023-08-08] MEDS: InsuLIN REG 1unit/0.01ml Soln (100units/ml) SC SCH ×2 (05:39→12:01)
[2023-08-08] MEDS: hydrALAZINE HCL 20 MG/ML VL IV PRN (06:11)
[2023-08-08 08:00] VITALS: PULSE 70; RESP 20; O2SAT 94
[2023-08-08 09:00] VITALS: BP 153/70; PULSE 70; RESP 20; TEMP 98; O2SAT 94
[2023-08-08] MEDS: DOCUSATE SOD 100 MG CAP PO PRN (10:04)
[2023-08-08] MEDS: ASPirin 81 mg TAB PO SCH (10:04)
[2023-08-08] MEDS: amLODIPine BESYLATE 5 MG TAB PO SCH (10:04)
[2023-08-08] MEDS ORDERED: DOXY-346 PO (11:06)
[2023-08-08] MEDS: VANCOMYCIN 1GM/250ML 250 ML IV SCH (12:00)
[2023-08-08] MEDS: SODIUM CHLORIDE 0.9% 1,000 ML IV SCH (12:35)
[2023-08-08 12:40] VITALS: BP 165/87; PULSE 70; RESP 20; TEMP 36.7; O2SAT 94
[2023-08-08 13:00] VITALS: BP 157/84; PULSE 76; RESP 18; TEMP 98.1; O2SAT 97
== END 2023-08-08 15:25 | disposition home health service (06) | DRG 854 ==
LOC: ER 18:46 → OVERFLOW 21:12 → WEST WING 08-01 18:31
PROVIDERS: ADMIT Nurse Practitioner Family; ATTEND Family Medicine
PROC: 0QBL0ZZ Excision of Right Tarsal, Open Approach (ICD-10-PCS; 2023-08-06)
PROC: B41D1ZZ Fluoroscopy of Aorta and Bilateral Lower Extremity Arteries using Low Osmolar Contrast (ICD-10-PCS; principal; 2023-08-07)
DX: A41.9 Sepsis, unspecified organism (principal); L03.115 Cellulitis of right lower limb; L97.419 Non-pressure chronic ulcer of right heel and midfoot with unspecified severity; I16.0 Hypertensive urgency; E11.621 Type 2 diabetes mellitus with foot ulcer; I10 Essential (primary) hypertension; E78.00 Pure hypercholesterolemia, unspecified; E11.65 Type 2 diabetes mellitus with hyperglycemia; L97.519 Non-pressure chronic ulcer of other part of right foot with unspecified severity; E03.9 Hypothyroidism, unspecified; L97.529 Non-pressure chronic ulcer of other part of left foot with unspecified severity; N20.0 Calculus of kidney; Z87.442 Personal history of urinary calculi; Z80.0 Family history of malignant neoplasm of digestive organs; Z82.0 Family history of epilepsy and other diseases of the nervous system; Z82.49 Family history of ischemic heart disease and other diseases of the circulatory system; Z83.3 Family history of diabetes mellitus; Z86.73 Personal history of transient ischemic attack (TIA), and cerebral infarction without residual deficits; Z89.412 Acquired absence of left great toe
CPT/HCPCS: 36415; 71045; 73630; 73718; 75625; 75716; 80048; 80053; 80202; 82565; 82962; 83036; 85025; 85610; 85730; 87040; 87070; 87075; 87076; 87077; 87186; 87205; 93005; 93926; 93970; 96365; 96375; 99152; 99153; G0378; J0690; J1815; J1885; J2250; J2405; J2704

== ENCOUNTER 2023-08-09 16:57 | Inpatient (IN) | payer BC, MEDICARE ==
[~2023-08-09] VITALS: Ht 177.8 cm; Wt 128.8 kg
[~2023-08-09 16:57] MED LIST changes: +DOXY-346 PO
[2023-08-09 17:36] LABS: Basophils # (auto) 0.1 10 ^3/uL (0-0.2); Eosinophils # (auto) 0.2 10 ^3/uL (0-0.8); Hemoglobin 11.9 g/dL (13.5-17.5); Monocytes # (auto) 0.8 10 ^3/uL (0-1.3)
[2023-08-09 17:38] LABS: Basophils % (auto) 0.4 % (0.0-2.0); Eosinophils % (auto) 1.6 % (0.0-7.0); Hematocrit 38.6 % (41.0-53.0); Lymphocytes # (auto) 2.4 10 ^3/uL (0.4-5.4); Mean Corpuscular Hemoglobin 21.2 pg (28.0-32.0); Mean Corpuscular Hgb Conc. 30.9 g/dL (32.0-36.0); Mean Corpuscular Volume 68.5 fL (80.0-100.0); Monocytes % (auto) 6.2 % (0.0-12.0); Neutrophils # (auto) 9.8 10 ^3/uL (1.6-8.6); Neutrophils % (auto) 73.8 % (37.0-80.0); Red Blood Cells 5.63 10^6/uL (4.5-5.90); White Blood Cell 13.3 10^3/uL (4.4-10.8)
[2023-08-09 17:39] LABS: Red Cell Distribution Width 20.1 % (11.8-14.3)
[2023-08-09 17:54] LABS: Alanine Aminotransferase 26 U/L (7-40); Albumin 4.4 g/dL (3.2-4.8); Alkaline Phosphatase 109 U/L (46-116); Anion Gap 6.6 (5-15); Aspartate Aminotransferase 14 U/L (13-40); Blood Urea Nitrogen 24 mg/dL (9-23); Calcium 9.5 mg/dL (8.7-10.4); Carbon Dioxide 27.4 mmol/L (20-30); Chloride 101 mmol/L (98-107); Glucose 251 mg/dL (74-106); Potassium 3.7 mmol/L (3.5-5.1); Sodium 135 mmol/L (136-145)
[2023-08-09 17:55] LABS: Bilirubin, Total 0.5 mg/dL (0.2-1.0); Total Protein 8.3 g/dL (5.7-8.2)
[2023-08-09] MEDS ORDERED: GOLYTELY 4L KIT PO ONE (19:30)
[2023-08-09] MEDS ORDERED: SODIUM CHLORIDE 0.9% 1,000 ML IVB ONE (19:30)
[2023-08-09] MEDS ORDERED: ONDANSETRON HCL 4 MG/2 ML VIAL IV ONE (19:30)
[2023-08-09] MEDS ORDERED: HYDROmorphone HCL 2 MG/ML VL/or syr IV ONE (19:30)
[2023-08-09] MEDS ORDERED: SODIUM CHLORIDE 0.9% 1,000 ML IV ONE (22:00)
[2023-08-09 23:29] LABS: Urine Bacteria FEW /hpf (None Seen); Urine Blood 2+ /uL (Negative); Urine Clarity HAZY (Clear); Urine Color Yellow (Yellow); Urine Hyaline Cast FEW /lpf (0 - 2); Urine Mucus FEW (None Seen); Urine Protein, UAD 4+ (Negative); Urine Specific Gravity 1.026 (1.001-1.035); Urine Urobilinogen Normal (Negative); Urine WBC 4 /hpf (0 - 3)
[2023-08-09] MEDS ORDERED: DEXTROSE (50%) 50ML SYRG IV PRN (23:30)
[2023-08-09] MEDS ORDERED: NITROGLYCERIN 0.4 MG SL TAB SL PRN (23:30)
[2023-08-09] MEDS ORDERED: DOCUSATE SOD 100 MG CAP PO PRN (23:30)
[2023-08-09] MEDS ORDERED: HYDROcodone-ACET 5/325MG TAB PO PRN (23:30)
[2023-08-09] MEDS ORDERED: ACETAMINOPHEN 325 MG TAB PO PRN (23:30)
[2023-08-09] MEDS ORDERED: ONDANSETRON HCL 4 MG/2 ML VIAL IV PRN (23:30)
[2023-08-09] MEDS ORDERED: MORPHINE SULFATE INJ 2 MG/ml SYRG IV PRN (23:30)
[2023-08-10] VITALS (7 sets, daily range): BP systolic 138–157; BP diastolic 67–89; PULSE 18–88; RESP 16–95; TEMP 97.2–98; O2SAT 94–97
[2023-08-10] MEDS: metroNIDAZOLE 500MG/100ML 100 ML IV SCH ×4 (00:25→21:49)
[2023-08-10] MEDS ORDERED: metroNIDAZOLE 500MG/100ML 100 ML IV ONE (01:45)
[2023-08-10] MEDS: ACCU-CHEK COMFORT CURVE STRIP VI SCH ×5 (02:18→23:14)
[2023-08-10] MEDS: SODIUM CHLORIDE 0.9% 1,000 ML IV SCH ×2 (02:25→16:39)
[2023-08-10] MEDS: InsuLIN REG 1unit/0.01ml Soln (100units/ml) SC SCH ×5 (02:25→23:14)
[2023-08-10] MEDS: HYDROmorphone HCL 2 MG/ML VL/or syr IV PRN ×6 (02:27→22:51)
[2023-08-10 06:04] LABS: Basophils # (auto) 0 10 ^3/uL (0-0.2); Basophils % (auto) 0.4 % (0.0-2.0); Eosinophils # (auto) 0.2 10 ^3/uL (0-0.8); Eosinophils % (auto) 1.9 % (0.0-7.0); Hemoglobin 10.3 g/dL (13.5-17.5); Monocytes # (auto) 0.9 10 ^3/uL (0-1.3)
[2023-08-10 06:08] LABS: Hematocrit 33.4 % (41.0-53.0); Lymphocytes # (auto) 3.2 10 ^3/uL (0.4-5.4); Lymphocytes % (auto) 27.3 % (10.0-50.0); Mean Corpuscular Hemoglobin 21.2 pg (28.0-32.0); Mean Corpuscular Hgb Conc. 30.9 g/dL (32.0-36.0); Mean Corpuscular Volume 68.6 fL (80.0-100.0); Monocytes % (auto) 7.9 % (0.0-12.0); Neutrophils # (auto) 7.4 10 ^3/uL (1.6-8.6); Neutrophils % (auto) 62.5 % (37.0-80.0); Red Blood Cells 4.87 10^6/uL (4.5-5.90); White Blood Cell 11.9 10^3/uL (4.4-10.8)
[2023-08-10 06:10] LABS: Alanine Aminotransferase 20 U/L (7-40); Albumin 3.8 g/dL (3.2-4.8); Alkaline Phosphatase 83 U/L (46-116); Anion Gap 5.7 (5-15); Aspartate Aminotransferase 13 U/L (13-40); BUN/Creatinine Ratio 16.5 (10.0-20.0); Bilirubin, Total 0.5 mg/dL (0.2-1.0); Blood Urea Nitrogen 21 mg/dL (9-23); Calcium 8.6 mg/dL (8.7-10.4); Carbon Dioxide 28.3 mmol/L (20-30); Chloride 105 mmol/L (98-107); Glucose 153 mg/dL (74-106); Potassium 3.2 mmol/L (3.5-5.1); Sodium 139 mmol/L (136-145); Total Protein 7.4 g/dL (5.7-8.2)
[2023-08-10 06:29] LABS: Red Cell Distribution Width 20.4 % (11.8-14.3)
[2023-08-10] MEDS: FAMOTIDINE (10MG/ML) 2ML VL IV SCH ×2 (10:33→21:51)
[2023-08-10] MEDS ORDERED: GOLYTELY 4L KIT PO ONE (12:00)
[2023-08-10] MEDS ORDERED: OXYCODONE W/ ACETAMINOPHEN 5/325MG TABLET PO PRN (14:30)
[2023-08-10] MEDS ORDERED: POTASSIUM CHL 20 Meq TABLET PO ONE (14:30)
[2023-08-11] MEDS: HYDROmorphone HCL 2 MG/ML VL/or syr IV PRN ×4 (02:51→14:39)
[2023-08-11 05:23] VITALS: BP 159/78; PULSE 66; RESP 20; TEMP 98.8; O2SAT 92
[2023-08-11] MEDS: ACCU-CHEK COMFORT CURVE STRIP VI SCH ×3 (05:36→16:35)
[2023-08-11] MEDS: metroNIDAZOLE 500MG/100ML 100 ML IV SCH ×2 (05:37→14:21)
[2023-08-11] MEDS: InsuLIN REG 1unit/0.01ml Soln (100units/ml) SC SCH ×3 (05:43→16:39)
[2023-08-11] MEDS: SODIUM CHLORIDE 0.9% 1,000 ML IV SCH (05:44)
[2023-08-11 09:00] VITALS: BP 137/58; PULSE 54; RESP 16; TEMP 97.5; O2SAT 97
[2023-08-11] MEDS: FAMOTIDINE (10MG/ML) 2ML VL IV SCH (10:15)
[2023-08-11] MEDS ORDERED: POLYETHYLENE GLYCOL 17 GM PWDR PO SCH (12:00)
[2023-08-11 12:24] LABS: Basophils # (auto) 0.1 10 ^3/uL (0-0.2); Eosinophils # (auto) 0.3 10 ^3/uL (0-0.8); Hemoglobin 10.2 g/dL (13.5-17.5); Mean Corpuscular Volume 68.8 fL (80.0-100.0); Monocytes # (auto) 0.6 10 ^3/uL (0-1.3)
[2023-08-11 12:25] LABS: Basophils % (auto) 0.9 % (0.0-2.0); Eosinophils % (auto) 3.1 % (0.0-7.0); Hematocrit 32.8 % (41.0-53.0); Lymphocytes # (auto) 2.2 10 ^3/uL (0.4-5.4); Lymphocytes % (auto) 26.9 % (10.0-50.0); Mean Corpuscular Hemoglobin 21.4 pg (28.0-32.0); Monocytes % (auto) 7.5 % (0.0-12.0); Neutrophils % (auto) 61.6 % (37.0-80.0); Nucleated Red Blood Cells % 0.1 %; Red Blood Cells 4.76 10^6/uL (4.5-5.90); White Blood Cell 8.1 10^3/uL (4.4-10.8)
[2023-08-11 12:26] LABS: Red Cell Distribution Width 20.5 % (11.8-14.3)
[2023-08-11 12:39] LABS: Anion Gap 3.3 (5-15); Calcium 8.6 mg/dL (8.5-10.1); Carbon Dioxide 27.7 mmol/L (20-30); Chloride 106 mmol/L (98-107); Potassium 3.7 mmol/L (3.5-5.1); Sodium 137 mmol/L (136-145)
[2023-08-11 12:44] LABS: Glucose 214 mg/dL (74-106)
[2023-08-11 12:45] LABS: BUN/Creatinine Ratio 13.6 (10.0-20.0); Blood Urea Nitrogen 14 mg/dL (9-23)
[2023-08-11 13:00] VITALS: BP 166/78; PULSE 75; RESP 19; TEMP 98.1; O2SAT 95
[2023-08-11] MEDS ORDERED: LEVEMIR SC (15:18)
[2023-08-11] MEDS ORDERED: CEPH250C PO (15:18)
[2023-08-11] MEDS ORDERED: POLY335015 PO (15:18)
[2023-08-11 17:00] VITALS: BP 162/77; PULSE 74; RESP 16; TEMP 98.6; O2SAT 93
== END 2023-08-11 18:16 | disposition home or self-care (01) | DRG 391 ==
LOC: ER 16:57 → OVERFLOW 23:33 → EAST 08-10 03:16
PROVIDERS: ADMIT Internal Medicine; ATTEND Student in an Organized Health Care Education/Training Program
DX: K52.89 Other specified noninfective gastroenteritis and colitis (principal); K85.90 Acute pancreatitis without necrosis or infection, unspecified; N17.9 Acute kidney failure, unspecified; Z68.41 Body mass index [BMI] 40.0-44.9, adult; K59.03 Drug induced constipation; E66.9 Obesity, unspecified; I10 Essential (primary) hypertension; E11.621 Type 2 diabetes mellitus with foot ulcer; L97.519 Non-pressure chronic ulcer of other part of right foot with unspecified severity; E11.65 Type 2 diabetes mellitus with hyperglycemia; T40.605A Adverse effect of unspecified narcotics, initial encounter; D72.829 Elevated white blood cell count, unspecified; E78.5 Hyperlipidemia, unspecified; Z82.0 Family history of epilepsy and other diseases of the nervous system; Z82.49 Family history of ischemic heart disease and other diseases of the circulatory system; Z80.0 Family history of malignant neoplasm of digestive organs; Z83.3 Family history of diabetes mellitus; Z86.73 Personal history of transient ischemic attack (TIA), and cerebral infarction without residual deficits; Z87.442 Personal history of urinary calculi; Y92.89 Other specified places as the place of occurrence of the external cause
CPT/HCPCS: 36415; 74176; 80048; 80053; 81001; 82962; 83690; 84484; 85025; 87081; 93005; 96361; 96374; 96375; G0378; J1815; J2405; J3490

== ENCOUNTER 2023-08-30 02:03 | Inpatient (IN) | payer MEDICARE ==
[2023-08-30] VITALS (15 sets, daily range): BP systolic 99–127; BP diastolic 35–85; PULSE 78–96; RESP 18–33; TEMP 36.8; O2SAT 88–100
[~2023-08-30] VITALS: Ht 185.4 cm; Wt 120.3 kg
[~2023-08-30 02:03] MED LIST changes: +CEPH250C PO; +POLY335015 PO; -PROBTAB12 OR
[2023-08-30] MEDS ORDERED: ACETAMINOPHEN 500 MG TAB PO ONE (02:45)
[2023-08-30] MEDS ORDERED: VANCOMYCIN 1GM/250ML 250 ML IV ONE ×2 (03:15→03:30)
[2023-08-30 03:30] LABS: Basophils # (auto) 0 10 ^3/uL (0-0.2); Basophils % (auto) 0.1 % (0.0-2.0); Eosinophils # (auto) 0.1 10 ^3/uL (0-0.8); Hemoglobin 9.1 g/dL (13.5-17.5); Lymphocytes # (auto) 1.1 10 ^3/uL (0.4-5.4)
[2023-08-30] MEDS ORDERED: SODIUM CHLORIDE 0.9% 3,250 ML IV ONE (03:30)
[2023-08-30] MEDS ORDERED: HYDROmorphone HCL 2 MG/ML VL/or syr IV ONE ×3 (03:30→12:15)
[2023-08-30] MEDS ORDERED: PIPERACILLIN-TAZO 4.5GM 100 ML IV ONE (03:30)
[2023-08-30 03:32] LABS: Eosinophils % (auto) 0.3 % (0.0-7.0); Hematocrit 29.2 % (41.0-53.0); Lymphocytes % (auto) 5.9 % (10.0-50.0); Mean Corpuscular Hemoglobin 21.6 pg (28.0-32.0); Mean Corpuscular Hgb Conc. 31.1 g/dL (32.0-36.0); Mean Corpuscular Volume 69.2 fL (80.0-100.0); Monocytes # (auto) 1.4 10 ^3/uL (0-1.3); Monocytes % (auto) 7.4 % (0.0-12.0); Neutrophils # (auto) 16.6 10 ^3/uL (1.6-8.6); Neutrophils % (auto) 86.3 % (37.0-80.0); Nucleated Red Blood Cells % 0.2 %; Red Blood Cells 4.22 10^6/uL (4.5-5.90); Red Cell Distribution Width 19.6 % (11.8-14.3); White Blood Cell 19.3 10^3/uL (4.4-10.8)
[2023-08-30 03:43] LABS: Alanine Aminotransferase 29 U/L (7-40); Albumin 3.7 g/dL (3.2-4.8); Alkaline Phosphatase 136 U/L (46-116); Anion Gap 9 (5-15); Aspartate Aminotransferase 43 U/L (13-40); BUN/Creatinine Ratio 20.7 (10.0-20.0); Blood Urea Nitrogen 36 mg/dL (9-23); Calcium 8.7 mg/dL (8.7-10.4); Carbon Dioxide 26 mmol/L (20-30); Chloride 98 mmol/L (98-107); Glucose 397 mg/dL (74-106); Potassium 3.3 mmol/L (3.5-5.1); Sodium 133 mmol/L (136-145)
[2023-08-30 03:44] LABS: Bilirubin, Total 0.5 mg/dL (0.2-1.0); Total Protein 7.4 g/dL (5.7-8.2)
[2023-08-30] MEDS: ASPirin 325 MG TAB PO ONE ×2 (07:02→07:06)
[2023-08-30] MEDS ORDERED: ONDANSETRON HCL 4 MG/2 ML VIAL IV ONE (09:00)
[2023-08-30] MEDS ORDERED: ONDANSETRON HCL 4 MG/2 ML VIAL IV PRN ×2 (09:45→15:15)
[2023-08-30] MEDS ORDERED: ALBUTEROL SULF 2.5 MG/0.5ML(0.5%) NEB SOLN NEB PRN (09:45)
[2023-08-30] MEDS ORDERED: IPRATROPIUM BROM 0.5 MG/2.5ML INH SOL NEB PRN (09:45)
[2023-08-30] MEDS ORDERED: DOCUSATE SOD 100 MG CAP PO PRN (09:45)
[2023-08-30] MEDS ORDERED: DEXTROSE (50%) 50ML SYRG IV PRN (09:45)
[2023-08-30] MEDS ORDERED: VANCOMYCIN PER PHARMACY 0 MG IV SCH (09:45)
[2023-08-30] MEDS ORDERED: TEMAZEPAM 15 MG CAP PO PRN (09:45)
[2023-08-30] MEDS ORDERED: POTASSIUM EFFERVESENT TAB 25 MEQ PO ONE (09:45)
[2023-08-30] MEDS ORDERED: ASPirin-EC 81 mg tab PO SCH (10:00)
[2023-08-30] MEDS: SODIUM CHLORIDE 0.9% 1,000 ML IV SCH ×2 (10:20→18:23)
[2023-08-30] MEDS ORDERED: LISINOPRIL 20 MG TAB PO SCH (10:36)
[2023-08-30 10:38] LABS: Triglycerides 85 mg/dL (< 150)
[2023-08-30 10:38] LABS: Base Excess 1.1 mmol/L (-2.0-2.0)
[2023-08-30 10:39] LABS: LDL Cholesterol 45 mg/dL (< 100)
[2023-08-30 10:40] LABS: Cholesterol 93 mg/dL (< 200); HDL Cholesterol 27 mg/dL (40-59)
[2023-08-30 11:03] LABS: INR 1.09 (0.9-1.15); Partial Thromboplastin Time 33.5 SEC (24.5-34.5); Prothrombin Time 11.4 sec (9.3-11.8)
[2023-08-30] MEDS ORDERED: SODIUM CHLORIDE 0.9% 1,000 ML IV ONE (11:30)
[2023-08-30] MEDS: POTASSIUM CHL 20MEQ/100ML 100 ML IV SCH ×2 (11:30→13:30)
[2023-08-30] MEDS ORDERED: hydrALAZINE HCL 20 MG/ML VL IV SCH (12:00)
[2023-08-30] MEDS: ACCU-CHEK COMFORT CURVE STRIP VI SCH ×2 (12:23→17:01)
[2023-08-30] MEDS: InsuLIN REG 1unit/0.01ml Soln (100units/ml) SC SCH ×2 (12:30→17:38)
[2023-08-30] MEDS: amLODIPine BESYLATE 5 MG TAB PO SCH (12:30)
[2023-08-30] MEDS: HCTZ 25 MG TAB PO SCH (12:31)
[2023-08-30] MEDS ORDERED: ceFAZolin 1GM/50ML 100 ML IV ONE (13:21)
[2023-08-30] MEDS: PIPERACILLIN-TAZOB 3.375GM 100 ML IV SCH ×2 (14:00→21:40)
[2023-08-30] MEDS: PREGABALIN 25 MG CAP PO SCH ×2 (14:00→21:39)
[2023-08-30] MEDS ORDERED: ceFAZolin 1GM VL ONE (14:15)
[2023-08-30] MEDS ORDERED: ONDANSETRON HCL 4 MG/2 ML VIAL ONE (14:20)
[2023-08-30] MEDS ORDERED: PROPOFOL 10 MG/ML 20 ML IV ONE (14:20)
[2023-08-30] MEDS ORDERED: fentaNYL CITRATE 100 MCG/2 ML VL ONE (14:20)
[2023-08-30] MEDS ORDERED: MIDAZOLAM HCL 2MG/2ML 2ml VIAL (1mg/ml) ONE (14:20)
[2023-08-30] MEDS ORDERED: GLYCOPYRROLATE 0.2 MG/ML 1ML VIAL ONE (14:20)
[2023-08-30] MEDS ORDERED: hydrALAZINE HCL 20 MG/ML VL IV PRN (14:30)
[2023-08-30] MEDS ORDERED: HYDROmorphone HCL 2 MG/ML VL/or syr IV PRN (15:15)
[2023-08-30] MEDS ORDERED: ACCU-CHEK COMFORT CURVE STRIP VI ONE (15:15)
[2023-08-30] MEDS ORDERED: POTASSIUM CHL 20MEQ/100ML 100 ML IV SCH (16:15)
[2023-08-30] MEDS: HYDROmorphone HCL 2 MG/ML VL/or syr IV PRN ×2 (16:21→21:40)
[2023-08-30] MEDS ORDERED: KETAMINE 50mg/ML 10ml Vial (500mg/10ml) IV ONE (16:21)
[2023-08-30] MEDS: TRIAZOLAM 0.25 MG PO SCH (17:01)
[2023-08-30] MEDS: VANCOMYCIN 1GM/250ML 250 ML IV SCH (21:36)
[2023-08-30] MEDS: ATORVASTATIN 20 MG TAB PO SCH (21:39)
[2023-08-30] MEDS: ALBUTEROL SULF 2.5 MG/0.5ML(0.5%) NEB SOLN NEB SCH (23:02)
[2023-08-30] MEDS: IPRATROPIUM BROM 0.5 MG/2.5ML INH SOL NEB SCH (23:02)
[2023-08-31] VITALS (31 sets, daily range): BP systolic 91–145; BP diastolic 29–80; PULSE 74–117; RESP 17–30; TEMP 99.9–103.3; O2SAT 86–98
[2023-08-31] MEDS: ACCU-CHEK COMFORT CURVE STRIP VI SCH ×5 (00:55→23:51)
[2023-08-31] MEDS: ACETAMINOPHEN 325 MG TAB PO PRN ×3 (00:59→20:01)
[2023-08-31] MEDS: InsuLIN REG 1unit/0.01ml Soln (100units/ml) SC SCH ×4 (01:11→16:40)
[2023-08-31] MEDS: SODIUM CHLORIDE 0.9% 1,000 ML IV SCH (02:25)
[2023-08-31] MEDS: HYDROmorphone HCL 2 MG/ML VL/or syr IV PRN ×5 (03:09→23:58)
[2023-08-31 05:10] LABS: Basophils # (auto) 0 10 ^3/uL (0-0.2); Basophils % (auto) 0.2 % (0.0-2.0); Mean Corpuscular Volume 69.2 fL (80.0-100.0)
[2023-08-31 05:11] LABS: Eosinophils # (auto) 0.4 10 ^3/uL (0-0.8); Eosinophils % (auto) 2.7 % (0.0-7.0); Hematocrit 25.8 % (41.0-53.0); Lymphocytes # (auto) 1.5 10 ^3/uL (0.4-5.4); Mean Corpuscular Hemoglobin 21.3 pg (28.0-32.0); Mean Corpuscular Hgb Conc. 30.9 g/dL (32.0-36.0); Monocytes % (auto) 7.2 % (0.0-12.0); Neutrophils # (auto) 10.7 10 ^3/uL (1.6-8.6); Neutrophils % (auto) 78.9 % (37.0-80.0); Nucleated Red Blood Cells % 0.1 %; Red Blood Cells 3.73 10^6/uL (4.5-5.90); Red Cell Distribution Width 19.4 % (11.8-14.3); White Blood Cell 13.5 10^3/uL (4.4-10.8)
[2023-08-31 05:22] LABS: Alanine Aminotransferase 43 U/L (7-40); Albumin 3.3 g/dL (3.2-4.8); Alkaline Phosphatase 164 U/L (46-116); Anion Gap 3 (5-15); Aspartate Aminotransferase 73 U/L (13-40); BUN/Creatinine Ratio 13.2 (10.0-20.0); Blood Urea Nitrogen 19 mg/dL (9-23); Calcium 8.1 mg/dL (8.7-10.4); Carbon Dioxide 30 mmol/L (20-30); Chloride 104 mmol/L (98-107); Potassium 3.4 mmol/L (3.5-5.1); Sodium 137 mmol/L (136-145)
[2023-08-31 05:23] LABS: Bilirubin, Total 0.4 mg/dL (0.2-1.0); Total Protein 6.6 g/dL (5.7-8.2)
[2023-08-31] MEDS: PIPERACILLIN-TAZOB 3.375GM 100 ML IV SCH ×3 (06:03→21:54)
[2023-08-31] MEDS: PREGABALIN 25 MG CAP PO SCH ×3 (06:04→21:54)
[2023-08-31 06:08] LABS: Glucose 166 mg/dL (74-106)
[2023-08-31] MEDS: ALBUTEROL SULF 2.5 MG/0.5ML(0.5%) NEB SOLN NEB SCH ×3 (06:15→19:02)
[2023-08-31] MEDS: IPRATROPIUM BROM 0.5 MG/2.5ML INH SOL NEB SCH ×3 (06:15→19:02)
[2023-08-31] MEDS: HCTZ 25 MG TAB PO SCH (07:49)
[2023-08-31] MEDS: ASPirin-EC 81 mg tab PO SCH (07:49)
[2023-08-31] MEDS: amLODIPine BESYLATE 5 MG TAB PO SCH (07:51)
[2023-08-31] MEDS ORDERED: ASPirin 81 mg TAB PO SCH (10:00)
[2023-08-31] MEDS ORDERED: FUROSEMIDE 40 MG/4 ML VIAL IV ONE (11:45)
[2023-08-31 12:00] LABS: Base Excess -0.3 mmol/L (-2.0-2.0)
[2023-08-31] MEDS ORDERED: ACETAMINOPHEN IV 1000 MG/100ML (10MG/ML) IV ONE (12:00)
[2023-08-31] MEDS: VANCOMYCIN 1GM/250ML 250 ML IV SCH (13:43)
[2023-08-31 14:20] LABS: Base Excess 2.3 mmol/L (-2.0-2.0)
[2023-08-31] MEDS: TRIAZOLAM 0.25 MG PO SCH (16:31)
[2023-08-31] MEDS: FUROSEMIDE 40 MG/4 ML VIAL IV SCH (18:10)
[2023-08-31] MEDS ORDERED: LIDOCAINE 1% (LOCAL ANESTH.) PF 5ml SDV ID ONE (18:15)
[2023-08-31] MEDS ORDERED: POTASSIUM EFFERVESENT TAB 25 MEQ PO ONE (19:30)
[2023-08-31] MEDS: SODIUM CHLOR 0.9% PF (SALINE LOCK) 10ML VIAL/SYR IV SCH (21:54)
[2023-08-31] MEDS: ATORVASTATIN 20 MG TAB PO SCH (21:54)
[2023-09-01] VITALS (30 sets, daily range): BP systolic 101–168; BP diastolic 46–94; PULSE 74–103; RESP 12–30; TEMP 97.8–101.1; O2SAT 75–100
[2023-09-01] MEDS: InsuLIN REG 1unit/0.01ml Soln (100units/ml) SC SCH ×4 (00:04→18:25)
[2023-09-01] MEDS: ALBUTEROL SULF 2.5 MG/0.5ML(0.5%) NEB SOLN NEB SCH ×4 (00:29→18:05)
[2023-09-01] MEDS: IPRATROPIUM BROM 0.5 MG/2.5ML INH SOL NEB SCH ×4 (00:29→18:05)
[2023-09-01] MEDS: ACETAMINOPHEN 325 MG TAB PO PRN (02:10)
[2023-09-01] MEDS: HYDROmorphone HCL 2 MG/ML VL/or syr IV PRN ×5 (04:13→21:01)
[2023-09-01 05:22] LABS: Basophils # (auto) 0 10 ^3/uL (0-0.2); Basophils % (auto) 0.3 % (0.0-2.0); Eosinophils # (auto) 0.3 10 ^3/uL (0-0.8); Eosinophils % (auto) 2.9 % (0.0-7.0); Hematocrit 25.6 % (41.0-53.0); Hemoglobin 7.9 g/dL (13.5-17.5); Lymphocytes # (auto) 1.9 10 ^3/uL (0.4-5.4); Lymphocytes % (auto) 16.2 % (10.0-50.0); Mean Corpuscular Hemoglobin 21.1 pg (28.0-32.0); Mean Corpuscular Hgb Conc. 30.7 g/dL (32.0-36.0); Mean Corpuscular Volume 68.5 fL (80.0-100.0); Monocytes % (auto) 8.5 % (0.0-12.0); Neutrophils # (auto) 8.3 10 ^3/uL (1.6-8.6); Neutrophils % (auto) 72.1 % (37.0-80.0); Nucleated Red Blood Cells % 0.1 %; Red Blood Cells 3.73 10^6/uL (4.5-5.90); Red Cell Distribution Width 19.2 % (11.8-14.3); White Blood Cell 11.5 10^3/uL (4.4-10.8)
[2023-09-01 05:32] LABS: Alanine Aminotransferase 61 U/L (7-40); Albumin 3.4 g/dL (3.2-4.8); Alkaline Phosphatase 198 U/L (46-116); Anion Gap 4 (5-15); Aspartate Aminotransferase 66 U/L (13-40); BUN/Creatinine Ratio 9.8 (10.0-20.0); Bilirubin, Total 0.4 mg/dL (0.2-1.0); Blood Urea Nitrogen 17 mg/dL (9-23); Calcium 8.3 mg/dL (8.7-10.4); Carbon Dioxide 31 mmol/L (20-30); Chloride 98 mmol/L (98-107); Potassium 3.3 mmol/L (3.5-5.1); Sodium 133 mmol/L (136-145); Total Protein 6.9 g/dL (5.7-8.2)
[2023-09-01 05:33] LABS: Glucose 275 mg/dL (74-106)
[2023-09-01] MEDS: ACCU-CHEK COMFORT CURVE STRIP VI SCH ×3 (06:06→18:25)
[2023-09-01] MEDS: PREGABALIN 25 MG CAP PO SCH ×3 (06:06→21:42)
[2023-09-01] MEDS: PIPERACILLIN-TAZOB 3.375GM 100 ML IV SCH (06:08)
[2023-09-01] MEDS: FUROSEMIDE 40 MG/4 ML VIAL IV SCH ×2 (06:09→18:24)
[2023-09-01] MEDS: SODIUM CHLOR 0.9% PF (SALINE LOCK) 10ML VIAL/SYR IV SCH ×2 (10:00→21:43)
[2023-09-01] MEDS: VANCOMYCIN 1GM/250ML 250 ML IV SCH ×2 (10:49→21:43)
[2023-09-01] MEDS: ASPirin-EC 81 mg tab PO SCH (10:51)
[2023-09-01] MEDS: HCTZ 25 MG TAB PO SCH (10:52)
[2023-09-01] MEDS: POTASSIUM EFFERVESENT TAB 25 MEQ PO SCH (10:53)
[2023-09-01] MEDS: amLODIPine BESYLATE 5 MG TAB PO SCH (10:53)
[2023-09-01] MEDS: HYDROcodone-ACET 5/325MG TAB PO PRN (11:08)
[2023-09-01 12:31] LABS: Base Excess 8.1 mmol/L (-2.0-2.0)
[2023-09-01] MEDS: CEFEPIME 2GM/50ML NS 50 ML IV SCH (15:02)
[2023-09-01] MEDS: TRIAZOLAM 0.25 MG PO SCH (18:37)
[2023-09-01] MEDS: ATORVASTATIN 20 MG TAB PO SCH (21:43)
[2023-09-02] VITALS (30 sets, daily range): BP systolic 116–167; BP diastolic 62–88; PULSE 83–112; RESP 10–30; TEMP 97.9–100.8; O2SAT 89–100
[2023-09-02] MEDS: ACCU-CHEK COMFORT CURVE STRIP VI SCH ×5 (00:22→23:49)
[2023-09-02] MEDS: ALBUTEROL SULF 2.5 MG/0.5ML(0.5%) NEB SOLN NEB SCH ×4 (00:25→18:05)
[2023-09-02] MEDS: IPRATROPIUM BROM 0.5 MG/2.5ML INH SOL NEB SCH ×4 (00:25→18:05)
[2023-09-02] MEDS: InsuLIN REG 1unit/0.01ml Soln (100units/ml) SC SCH ×4 (00:33→23:53)
[2023-09-02] MEDS: CEFEPIME 2GM/50ML NS 50 ML IV SCH ×2 (02:26→15:22)
[2023-09-02] MEDS: HYDROmorphone HCL 2 MG/ML VL/or syr IV PRN ×6 (02:27→21:30)
[2023-09-02] MEDS: HYDROcodone-ACET 5/325MG TAB PO PRN ×2 (03:24→23:58)
[2023-09-02 05:12] LABS: Basophils # (auto) 0 10 ^3/uL (0-0.2); Basophils % (auto) 0.4 % (0.0-2.0); Eosinophils # (auto) 0.4 10 ^3/uL (0-0.8); Hemoglobin 8.1 g/dL (13.5-17.5); Mean Corpuscular Volume 68.1 fL (80.0-100.0); Monocytes # (auto) 0.8 10 ^3/uL (0-1.3); Neutrophils # (auto) 8.5 10 ^3/uL (1.6-8.6)
[2023-09-02 05:16] LABS: Eosinophils % (auto) 3.3 % (0.0-7.0); Hematocrit 25.8 % (41.0-53.0); Lymphocytes # (auto) 1.4 10 ^3/uL (0.4-5.4); Mean Corpuscular Hemoglobin 21.5 pg (28.0-32.0); Mean Corpuscular Hgb Conc. 31.5 g/dL (32.0-36.0); Monocytes % (auto) 7.4 % (0.0-12.0); Neutrophils % (auto) 75.9 % (37.0-80.0); Nucleated Red Blood Cells % 0.1 %; Red Blood Cells 3.78 10^6/uL (4.5-5.90); Red Cell Distribution Width 18.8 % (11.8-14.3); White Blood Cell 11.1 10^3/uL (4.4-10.8)
[2023-09-02] MEDS: PREGABALIN 25 MG CAP PO SCH ×3 (05:31→21:18)
[2023-09-02] MEDS: FUROSEMIDE 40 MG/4 ML VIAL IV SCH ×2 (05:31→17:37)
[2023-09-02 05:33] LABS: Alanine Aminotransferase 51 U/L (7-40); Albumin 3.5 g/dL (3.2-4.8); Alkaline Phosphatase 189 U/L (46-116); Anion Gap 1 (5-15); Aspartate Aminotransferase 37 U/L (13-40); BUN/Creatinine Ratio 8.6 (10.0-20.0); Bilirubin, Total 0.4 mg/dL (0.2-1.0); Blood Urea Nitrogen 13 mg/dL (9-23); Calcium 8.6 mg/dL (8.7-10.4); Carbon Dioxide 37 mmol/L (20-30); Chloride 95 mmol/L (98-107); Glucose 258 mg/dL (74-106); Magnesium 1.8 mg/dL (1.6-2.6); Sodium 133 mmol/L (136-145); Total Protein 7.3 g/dL (5.7-8.2)
[2023-09-02 07:34] LABS: Hypochromia Moderate; Ovalocytes FEW; Platelet Estimate Adequate; Stomatocytes Moderate
[2023-09-02] MEDS ORDERED: POTASSIUM EFFERVESENT TAB 25 MEQ ONE (09:41)
[2023-09-02] MEDS: amLODIPine BESYLATE 5 MG TAB PO SCH (09:46)
[2023-09-02] MEDS: ASPirin-EC 81 mg tab PO SCH (09:46)
[2023-09-02] MEDS: HCTZ 25 MG TAB PO SCH (09:46)
[2023-09-02] MEDS: POTASSIUM EFFERVESENT TAB 25 MEQ PO SCH (09:47)
[2023-09-02] MEDS: VANCOMYCIN 1GM/250ML 250 ML IV SCH ×2 (09:47→22:00)
[2023-09-02] MEDS: POLYETHYLENE GLYCOL 17 GM PWDR PO SCH (10:00)
[2023-09-02] MEDS ORDERED: POTASSIUM EFFERVESENT TAB 25 MEQ PO ONE (10:00)
[2023-09-02] MEDS: SODIUM CHLOR 0.9% PF (SALINE LOCK) 10ML VIAL/SYR IV SCH ×2 (11:54→21:18)
[2023-09-02] MEDS: MAGNESIUM SULFATE 1GM/100ML 100 ML IV SCH ×2 (11:55→13:03)
[2023-09-02] MEDS ORDERED: InsuLIN REG 1unit/0.01ml Soln (100units/ml) SC ONE (13:15)
[2023-09-02 20:09] LABS: COVID19 ANTIGEN SOFIA FIA NEGATIVE (NEGATIVE)
[2023-09-02 20:10] LABS: Rapid Influenza A Negative (Negative); Rapid Influenza B Negative (Negative)
[2023-09-02] MEDS: TRIAZOLAM 0.25 MG PO SCH (20:23)
[2023-09-02] MEDS: ATORVASTATIN 20 MG TAB PO SCH (21:30)
[2023-09-02] MEDS ORDERED: POTASSIUM EFFERVESENT TAB 25 MEQ PO SCH (22:00)
[2023-09-02] MEDS ORDERED: ENOXAPARIN SOD 40 MG/0.4 ML SYRINGE SC ONE (22:00)
[2023-09-02] MEDS: INSULIN LANTUS (GLARGINE) 1 /0.01ml (100units/ml) SC SCH (23:52)
[2023-09-03] VITALS (38 sets, daily range): BP systolic 97–170; BP diastolic 44–84; PULSE 77–110; RESP 12–37; TEMP 97.6–98.6; O2SAT 6–99
[2023-09-03] MEDS: ALBUTEROL SULF 2.5 MG/0.5ML(0.5%) NEB SOLN NEB SCH ×4 (00:12→18:30)
[2023-09-03] MEDS: IPRATROPIUM BROM 0.5 MG/2.5ML INH SOL NEB SCH ×4 (00:12→18:30)
[2023-09-03] MEDS: CEFEPIME 2GM/50ML NS 50 ML IV SCH (01:33)
[2023-09-03] MEDS: HYDROmorphone HCL 2 MG/ML VL/or syr IV PRN ×6 (01:38→22:00)
[2023-09-03 05:04] LABS: Alanine Aminotransferase 46 U/L (7-40); Albumin 3.6 g/dL (3.2-4.8); Alkaline Phosphatase 159 U/L (46-116); Anion Gap 5 (5-15); Aspartate Aminotransferase 30 U/L (13-40); Bilirubin, Total 0.5 mg/dL (0.2-1.0); Blood Urea Nitrogen 16 mg/dL (9-23); Calcium 9.2 mg/dL (8.5-10.1); Carbon Dioxide 40 mmol/L (20-30); Chloride 87 mmol/L (98-107); Glucose 273 mg/dL (74-106); Sodium 132 mmol/L (136-145); Total Protein 7.5 g/dL (5.7-8.2)
[2023-09-03 05:09] LABS: Potassium 2.9 mmol/L (3.5-5.1)
[2023-09-03] MEDS: ACCU-CHEK COMFORT CURVE STRIP VI SCH ×3 (05:37→17:59)
[2023-09-03] MEDS: FUROSEMIDE 40 MG/4 ML VIAL IV SCH ×2 (05:37→17:59)
[2023-09-03] MEDS: PREGABALIN 25 MG CAP PO SCH ×3 (05:46→21:59)
[2023-09-03] MEDS: InsuLIN REG 1unit/0.01ml Soln (100units/ml) SC SCH ×3 (05:50→18:13)
[2023-09-03] MEDS ORDERED: POTASSIUM CHL 20MEQ/100ML 100 ML IV ONE ×2 (07:30→10:00)
[2023-09-03] MEDS: HCTZ 25 MG TAB PO SCH (10:05)
[2023-09-03] MEDS: ASPirin-EC 81 mg tab PO SCH (10:05)
[2023-09-03] MEDS: amLODIPine BESYLATE 5 MG TAB PO SCH (10:05)
[2023-09-03] MEDS: ENOXAPARIN SOD 40 MG/0.4 ML SYRINGE SC SCH (10:06)
[2023-09-03] MEDS: SODIUM CHLOR 0.9% PF (SALINE LOCK) 10ML VIAL/SYR IV SCH ×2 (10:06→22:13)
[2023-09-03] MEDS: POLYETHYLENE GLYCOL 17 GM PWDR PO SCH (10:12)
[2023-09-03] MEDS: VANCOMYCIN 1GM/250ML 250 ML IV SCH (10:12)
[2023-09-03] MEDS: POTASSIUM EFFERVESENT TAB 25 MEQ PO SCH ×2 (13:37→21:59)
[2023-09-03] MEDS: AMPICILLIN SOD 2 GM in SODIUM CHL 0.9% 100 ML IV SCH ×3 (13:37→19:20)
[2023-09-03] MEDS: TRIAZOLAM 0.25 MG PO SCH (19:47)
[2023-09-03] MEDS: INSULIN LANTUS (GLARGINE) 1 /0.01ml (100units/ml) SC SCH (22:10)
[2023-09-03] MEDS: ATORVASTATIN 20 MG TAB PO SCH (22:12)
[2023-09-04] VITALS (24 sets, daily range): BP systolic 112–158; BP diastolic 70–87; PULSE 79–114; RESP 12–29; TEMP 97.4–98.9; O2SAT 87–100
[2023-09-04] MEDS: AMPICILLIN SOD 2 GM in SODIUM CHL 0.9% 100 ML IV SCH ×4 (00:05→18:37)
[2023-09-04] MEDS: InsuLIN REG 1unit/0.01ml Soln (100units/ml) SC SCH ×4 (00:06→17:50)
[2023-09-04] MEDS: ACCU-CHEK COMFORT CURVE STRIP VI SCH ×4 (00:06→17:49)
[2023-09-04] MEDS: IPRATROPIUM BROM 0.5 MG/2.5ML INH SOL NEB SCH ×4 (00:31→18:25)
[2023-09-04] MEDS: ALBUTEROL SULF 2.5 MG/0.5ML(0.5%) NEB SOLN NEB SCH ×4 (00:32→18:25)
[2023-09-04] MEDS: FUROSEMIDE 40 MG/4 ML VIAL IV SCH ×2 (06:09→17:35)
[2023-09-04] MEDS: PREGABALIN 25 MG CAP PO SCH ×3 (06:09→21:32)
[2023-09-04] MEDS: HYDROmorphone HCL 2 MG/ML VL/or syr IV PRN ×5 (06:10→21:33)
[2023-09-04] MEDS: ASPirin-EC 81 mg tab PO SCH (09:00)
[2023-09-04] MEDS: SODIUM CHLOR 0.9% PF (SALINE LOCK) 10ML VIAL/SYR IV SCH ×2 (09:00→21:38)
[2023-09-04] MEDS: POTASSIUM EFFERVESENT TAB 25 MEQ PO SCH ×2 (09:01→21:31)
[2023-09-04] MEDS: HCTZ 25 MG TAB PO SCH (09:01)
[2023-09-04] MEDS: POLYETHYLENE GLYCOL 17 GM PWDR PO SCH (09:01)
[2023-09-04] MEDS: amLODIPine BESYLATE 5 MG TAB PO SCH (09:02)
[2023-09-04] MEDS: ENOXAPARIN SOD 40 MG/0.4 ML SYRINGE SC SCH (09:02)
[2023-09-04 09:13] LABS: Chloride 86 mmol/L (98-107); Potassium 3.3 mmol/L (3.5-5.1); Sodium 132 mmol/L (136-145)
[2023-09-04 09:15] LABS: Calcium 9.7 mg/dL (8.5-10.1)
[2023-09-04 09:19] LABS: BUN/Creatinine Ratio 13.7 (10.0-20.0); Blood Urea Nitrogen 18 mg/dL (9-23); Glucose 302 mg/dL (74-106)
[2023-09-04 09:20] LABS: Anion Gap 5.99999 (5-15)
[2023-09-04 09:21] LABS: Carbon Dioxide > 40 mmol/L (20-30)
[2023-09-04] MEDS: INSULIN LANTUS (GLARGINE) 1 /0.01ml (100units/ml) SC SCH ×2 (10:02→21:34)
[2023-09-04 10:09] LABS: Base Excess 18.1 mmol/L (-2.0-2.0)
[2023-09-04 10:10] LABS: Basophils # (auto) 0.1 10 ^3/uL (0-0.2); Basophils % (auto) 0.4 % (0.0-2.0); Hematocrit 30.9 % (41.0-53.0); Hemoglobin 9.6 g/dL (13.5-17.5); Mean Corpuscular Hemoglobin 21.2 pg (28.0-32.0)
[2023-09-04 10:11] LABS: Eosinophils # (auto) 0.6 10 ^3/uL (0-0.8); Eosinophils % (auto) 4.5 % (0.0-7.0); Lymphocytes # (auto) 1.7 10 ^3/uL (0.4-5.4); Lymphocytes % (auto) 13.5 % (10.0-50.0); Mean Corpuscular Hgb Conc. 31.1 g/dL (32.0-36.0); Mean Corpuscular Volume 68.3 fL (80.0-100.0); Monocytes % (auto) 8.2 % (0.0-12.0); Neutrophils # (auto) 9.2 10 ^3/uL (1.6-8.6); Neutrophils % (auto) 73.4 % (37.0-80.0); Red Blood Cells 4.52 10^6/uL (4.5-5.90); Red Cell Distribution Width 18.3 % (11.8-14.3); White Blood Cell 12.6 10^3/uL (4.4-10.8)
[2023-09-04] MEDS ORDERED: acetaZOLAMIDE SODIUM 500 MG VL IV ONE ×2 (10:45→15:15)
[2023-09-04 14:20] LABS: Base Excess 12.9 mmol/L (-2.0-2.0)
[2023-09-04] MEDS ORDERED: POTASSIUM CHL 20 Meq TABLET PO ONE (18:45)
[2023-09-04 19:06] LABS: Base Excess 15.5 mmol/L (-2.0-2.0)
[2023-09-04] MEDS: TRIAZOLAM 0.25 MG PO SCH (20:39)
[2023-09-04] MEDS: ATORVASTATIN 20 MG TAB PO SCH (21:31)
[2023-09-05] VITALS (17 sets, daily range): BP systolic 114–143; BP diastolic 66–80; PULSE 78–96; RESP 18–23; TEMP 98.4–99; O2SAT 90–98
[2023-09-05] MEDS: AMPICILLIN SOD 2 GM in SODIUM CHL 0.9% 100 ML IV SCH ×2 (00:11→06:27)
[2023-09-05] MEDS: IPRATROPIUM BROM 0.5 MG/2.5ML INH SOL NEB SCH ×3 (02:18→12:02)
[2023-09-05] MEDS: ALBUTEROL SULF 2.5 MG/0.5ML(0.5%) NEB SOLN NEB SCH ×3 (02:18→12:02)
[2023-09-05] MEDS: HYDROmorphone HCL 2 MG/ML VL/or syr IV PRN ×4 (04:57→17:46)
[2023-09-05] MEDS: FUROSEMIDE 40 MG/4 ML VIAL IV SCH ×2 (04:58→17:55)
[2023-09-05] MEDS: PREGABALIN 25 MG CAP PO SCH ×2 (06:24→13:24)
[2023-09-05] MEDS: HYDROcodone-ACET 5/325MG TAB PO PRN (06:24)
[2023-09-05] MEDS: ACCU-CHEK COMFORT CURVE STRIP VI SCH ×4 (06:27→18:00)
[2023-09-05] MEDS: INSULIN LANTUS (GLARGINE) 1 /0.01ml (100units/ml) SC SCH (06:28)
[2023-09-05] MEDS: InsuLIN REG 1unit/0.01ml Soln (100units/ml) SC SCH ×4 (06:29→17:49)
[2023-09-05] MEDS: POTASSIUM EFFERVESENT TAB 25 MEQ PO SCH (08:51)
[2023-09-05] MEDS: ASPirin-EC 81 mg tab PO SCH (08:52)
[2023-09-05] MEDS: ENOXAPARIN SOD 40 MG/0.4 ML SYRINGE SC SCH (08:53)
[2023-09-05] MEDS: amLODIPine BESYLATE 5 MG TAB PO SCH (08:53)
[2023-09-05] MEDS: POLYETHYLENE GLYCOL 17 GM PWDR PO SCH (08:54)
[2023-09-05] MEDS: HCTZ 25 MG TAB PO SCH (08:54)
[2023-09-05] MEDS: SODIUM CHLOR 0.9% PF (SALINE LOCK) 10ML VIAL/SYR IV SCH (08:56)
[2023-09-05] MEDS ORDERED: acetaZOLAMIDE SODIUM 500 MG VL IV ONE (09:15)
[2023-09-05 10:23] LABS: Basophils # (auto) 0.1 10 ^3/uL (0-0.2)
[2023-09-05 10:25] LABS: Basophils % (auto) 0.5 % (0.0-2.0); Eosinophils # (auto) 0.6 10 ^3/uL (0-0.8); Eosinophils % (auto) 4.2 % (0.0-7.0); Hematocrit 30.5 % (41.0-53.0); Hemoglobin 9.3 g/dL (13.5-17.5); Lymphocytes # (auto) 2.3 10 ^3/uL (0.4-5.4); Lymphocytes % (auto) 16.1 % (10.0-50.0); Mean Corpuscular Hemoglobin 21.2 pg (28.0-32.0); Mean Corpuscular Hgb Conc. 30.6 g/dL (32.0-36.0); Mean Corpuscular Volume 69.2 fL (80.0-100.0); Monocytes # (auto) 1.2 10 ^3/uL (0-1.3); Monocytes % (auto) 8.4 % (0.0-12.0); Neutrophils % (auto) 70.8 % (37.0-80.0); Nucleated Red Blood Cells % 0.1 %; Red Blood Cells 4.41 10^6/uL (4.5-5.90); Red Cell Distribution Width 18.3 % (11.8-14.3); White Blood Cell 14.2 10^3/uL (4.4-10.8)
[2023-09-05 10:32] LABS: Chloride 92 mmol/L (98-107); Potassium 4.4 mmol/L (3.5-5.1); Sodium 132 mmol/L (136-145)
[2023-09-05 10:33] LABS: Anion Gap 2 (5-15); Calcium 9.3 mg/dL (8.7-10.4); Carbon Dioxide 38 mmol/L (20-30)
[2023-09-05 10:38] LABS: Glucose 261 mg/dL (74-106)
[2023-09-05 10:39] LABS: BUN/Creatinine Ratio 18.4 (10.0-20.0); Blood Urea Nitrogen 28 mg/dL (9-23); Magnesium 2.1 mg/dL (1.6-2.6)
[2023-09-05 11:10] LABS: Platelet Estimate Increased
[2023-09-05 11:11] LABS: Hypochromia Moderate
[2023-09-05] MEDS ORDERED: LINEZOLID 600MG/300ML 300 ML IV SCH (12:00)
[2023-09-05 14:55] LABS: COVID19 ANTIGEN SOFIA FIA NEGATIVE (NEGATIVE)
== END 2023-09-05 19:12 | DRG 871 ==
LOC: ER 02:03 → EDBD 02:03 → EDUNIT# 02:03 → TELE 10:00 → ICU CENTRL 16:09 → DOU IN ICU 16:23 → WEST WING 09-04 10:39 → TELE-WESTW 09-04 18:41
PROVIDERS: ADMIT Nurse Practitioner Family; ATTEND Family Medicine
PROC: 5A09357 Assistance with Respiratory Ventilation, Less than 24 Consecutive Hours, Continuous Positive Airway Pressure (ICD-10-PCS; 2023-08-30)
PROC: 0Y9M0ZZ Drainage of Right Foot, Open Approach (ICD-10-PCS; principal; 2023-08-30 14:30)
PROC: 02HV33Z Insertion of Infusion Device into Superior Vena Cava, Percutaneous Approach (ICD-10-PCS; 2023-08-31)
PROC: B548ZZA Ultrasonography of Superior Vena Cava, Guidance (ICD-10-PCS; 2023-08-31)
PROC: 5A09357 Assistance with Respiratory Ventilation, Less than 24 Consecutive Hours, Continuous Positive Airway Pressure (ICD-10-PCS; 2023-08-31)
PROC: 5A09357 Assistance with Respiratory Ventilation, Less than 24 Consecutive Hours, Continuous Positive Airway Pressure (ICD-10-PCS; 2023-09-01)
PROC: 5A09357 Assistance with Respiratory Ventilation, Less than 24 Consecutive Hours, Continuous Positive Airway Pressure (ICD-10-PCS; 2023-09-02)
PROC: 5A09357 Assistance with Respiratory Ventilation, Less than 24 Consecutive Hours, Continuous Positive Airway Pressure (ICD-10-PCS; 2023-09-03)
PROC: 5A09357 Assistance with Respiratory Ventilation, Less than 24 Consecutive Hours, Continuous Positive Airway Pressure (ICD-10-PCS; 2023-09-04)
DX: A41.81 Sepsis due to Enterococcus (principal); I21.A1 Myocardial infarction type 2; J96.21 Acute and chronic respiratory failure with hypoxia; I50.33 Acute on chronic diastolic (congestive) heart failure; D62 Acute posthemorrhagic anemia; E87.1 Hypo-osmolality and hyponatremia; J44.1 Chronic obstructive pulmonary disease with (acute) exacerbation; N17.9 Acute kidney failure, unspecified; L03.115 Cellulitis of right lower limb; J98.11 Atelectasis; L97.419 Non-pressure chronic ulcer of right heel and midfoot with unspecified severity; M86.8X7 Other osteomyelitis, ankle and foot; I13.0 Hypertensive heart and chronic kidney disease with heart failure and stage 1 through stage 4 chronic kidney disease, or unspecified chronic kidney disease; M84.474A Pathological fracture, right foot, initial encounter for fracture; E11.69 Type 2 diabetes mellitus with other specified complication; E87.6 Hypokalemia; E11.621 Type 2 diabetes mellitus with foot ulcer; E11.22 Type 2 diabetes mellitus with diabetic chronic kidney disease; N18.9 Chronic kidney disease, unspecified; E03.9 Hypothyroidism, unspecified; R74.01 Elevation of levels of liver transaminase levels; G47.30 Sleep apnea, unspecified; E66.01 Morbid (severe) obesity due to excess calories; E78.00 Pure hypercholesterolemia, unspecified; R91.1 Solitary pulmonary nodule; L97.519 Non-pressure chronic ulcer of other part of right foot with unspecified severity; S81.802A Unspecified open wound, left lower leg, initial encounter; S81.801A Unspecified open wound, right lower leg, initial encounter; X58.XXXA Exposure to other specified factors, initial encounter; Z20.822 Contact with and (suspected) exposure to COVID-19; Z79.899 Other long term (current) drug therapy; Z80.0 Family history of malignant neoplasm of digestive organs; Z82.0 Family history of epilepsy and other diseases of the nervous system; Z82.49 Family history of ischemic heart disease and other diseases of the circulatory system; Z83.3 Family history of diabetes mellitus; Z86.73 Personal history of transient ischemic attack (TIA), and cerebral infarction without residual deficits; Z87.442 Personal history of urinary calculi; Z87.891 Personal history of nicotine dependence; Z90.49 Acquired absence of other specified parts of digestive tract; Z89.412 Acquired absence of left great toe; Y93.89 Activity, other specified; Y92.89 Other specified places as the place of occurrence of the external cause; Y99.8 Other external cause status
CPT/HCPCS: 36415; 36569; 36600; 71045; 71250; 73630; 73700; 78582; 80048; 80053; 80061; 80202; 82805; 82962; 83036; 83605; 83735; 83880; 84443; 84484; 85025; 85379; 85610; 85730; 86850; 86900; 86901; 87040; 87075; 87077; 87081; 87186; 87205; 87426; 87804; 93005; 93306; 93970; 93971; 94640; 94660; 96365; G0378; J0131; J0690; J0692; J1815; J2250; J2405; J2543; J2704; J3480

== ENCOUNTER → 2024-03-29 | Outpatient (CLI) | payer MEDICARE, BC | END | disposition home or self-care (01) | LOC: XYW 14:07 | PROVIDERS: ATTEND Nurse Practitioner Family | DX: I51.7 Cardiomegaly (principal); I51.89 Other ill-defined heart diseases; R22.43 Localized swelling, mass and lump, lower limb, bilateral | CPT/HCPCS: 93306 ==

== ENCOUNTER 2024-05-13 13:57 | Inpatient (IN) | payer MEDICARE, BC ==
[~2024-05-13] VITALS: Ht 177.8 cm; Wt 126.0 kg
[2024-05-13] MEDS: HYDROmorphone HCL 2 MG/ML VL/or syr IV ONE (14:47)
[2024-05-13] MEDS: ONDANSETRON HCL 4 MG/2 ML VIAL IV ONE (14:48)
[2024-05-13 15:14] LABS: Basophils # (auto) 0 10 ^3/uL (0-0.2); Basophils % (auto) 0.3 % (0.0-2.0); Hemoglobin 11.3 g/dL (13.5-17.5); Monocytes # (auto) 0.9 10 ^3/uL (0-1.3); Neutrophils # (auto) 11.8 10 ^3/uL (1.6-8.6)
[2024-05-13 15:16] LABS: Eosinophils # (auto) 0.4 10 ^3/uL (0-0.8); Eosinophils % (auto) 2.7 % (0.0-7.0); Hematocrit 35.2 % (41.0-53.0); Lymphocytes # (auto) 1.8 10 ^3/uL (0.4-5.4); Mean Corpuscular Hemoglobin 23.9 pg (28.0-32.0); Mean Corpuscular Volume 74.6 fL (80.0-100.0); Monocytes % (auto) 6.1 % (0.0-12.0); Neutrophils % (auto) 78.9 % (37.0-80.0); Nucleated Red Blood Cells % 0.1 %; Red Blood Cells 4.72 10^6/uL (4.5-5.90); Red Cell Distribution Width 20.1 % (11.8-14.3)
[2024-05-13 15:33] LABS: Alanine Aminotransferase 24 U/L (7-40); Albumin 4.3 g/dL (3.2-4.8); Alkaline Phosphatase 133 U/L (46-116); Anion Gap 7 (5-15); Aspartate Aminotransferase 22 U/L (13-40); BUN/Creatinine Ratio 17.4 (10.0-20.0); Blood Urea Nitrogen 27 mg/dL (9-23); Calcium 9.9 mg/dL (8.5-10.1); Carbon Dioxide 29 mmol/L (20-30); Chloride 100 mmol/L (98-107); Glucose 144 mg/dL (74-106); Potassium 3.6 mmol/L (3.5-5.1); Sodium 136 mmol/L (136-145)
[2024-05-13 15:34] LABS: Bilirubin, Total 0.5 mg/dL (0.2-1.0); Total Protein 8.4 g/dL (5.7-8.2)
[2024-05-13 15:43] LABS: Urine Bacteria None Seen /hpf (None Seen)
[2024-05-13 15:52] LABS: Urine Blood 1+ /uL (Negative); Urine Clarity Clear (Clear); Urine Color Yellow (Yellow); Urine Mucus FEW (None Seen); Urine Protein, UAD 3+ (Negative); Urine Specific Gravity 1.018 (1.001-1.035); Urine Urobilinogen Normal (Negative); Urine WBC 3 /hpf (0 - 3)
[2024-05-13 16:42] VITALS: PULSE 84; RESP 19; O2SAT 97
[2024-05-13] MEDS ORDERED: LACTULOSE 20Gm/30ML SOLN PO PRN (17:00)
[2024-05-13] MEDS: LACTULOSE 20Gm/30ML SOLN PO ONE (17:42)
[2024-05-13] MEDS: SODIUM CHLORIDE 0.9% 1,000 ML IV SCH (17:43)
[2024-05-13 19:45] VITALS: PULSE 86; RESP 18; O2SAT 97
[2024-05-13] MEDS: KETOROLAC TROMETH 30 MG/ML 1ML VIAL IV ONE (19:57)
[2024-05-13] MEDS ORDERED: DEXTROSE (50%) 50ML SYRG IV PRN (20:00)
[2024-05-13] MEDS: FUROSEMIDE 40 MG/4 ML VIAL IV ONE (20:22)
[2024-05-13] MEDS: glipiZIDE 5 MG TAB PO SCH (20:26)
[2024-05-13] MEDS: OXYCODONE W/ ACETAMINOPHEN 5/325MG TABLET PO PRN (20:28)
[2024-05-13 21:00] VITALS: BP 138/72; PULSE 80; RESP 18; TEMP 98; O2SAT 92
[2024-05-13] MEDS: ACCU-CHEK COMFORT CURVE STRIP VI SCH (22:08)
[2024-05-13] MEDS: InsuLIN REG 1unit/0.01ml Soln (100units/ml) SC SCH (22:13)
[2024-05-13 23:41] VITALS: PULSE 80; RESP 16; O2SAT 98
[2024-05-14] VITALS (7 sets, daily range): BP systolic 124–158; BP diastolic 59–85; PULSE 62–85; RESP 18–20; TEMP 97.7–98.5; O2SAT 92–97
[2024-05-14] MEDS: MORPHINE SULFATE INJ 2 MG/ml SYRG IV PRN (02:04)
[2024-05-14] MEDS ORDERED: MORPHINE SULFATE INJ 2 MG/ml SYRG IV PRN (04:30)
[2024-05-14] MEDS: MORPHINE SULFATE INJ 2 MG/ml SYRG IV ONE (04:30)
[2024-05-14] MEDS: InsuLIN REG 1unit/0.01ml Soln (100units/ml) SC SCH (06:53)
[2024-05-14 07:19] LABS: Basophils # (auto) 0.1 10 ^3/uL (0-0.2); Eosinophils # (auto) 0.5 10 ^3/uL (0-0.8); Hemoglobin 10.7 g/dL (13.5-17.5); Monocytes # (auto) 0.8 10 ^3/uL (0-1.3); Nucleated Red Blood Cells % 0.1 %; Red Blood Cells 4.48 10^6/uL (4.5-5.90)
[2024-05-14 07:22] LABS: Basophils % (auto) 0.6 % (0.0-2.0); Eosinophils % (auto) 4.2 % (0.0-7.0); Hematocrit 33.5 % (41.0-53.0); Lymphocytes # (auto) 2.1 10 ^3/uL (0.4-5.4); Lymphocytes % (auto) 18.8 % (10.0-50.0); Mean Corpuscular Volume 74.9 fL (80.0-100.0); Monocytes % (auto) 7.1 % (0.0-12.0); Neutrophils # (auto) 7.8 10 ^3/uL (1.6-8.6); Neutrophils % (auto) 69.3 % (37.0-80.0); Red Cell Distribution Width 19.7 % (11.8-14.3); White Blood Cell 11.2 10^3/uL (4.4-10.8)
[2024-05-14 07:28] LABS: Alanine Aminotransferase 23 U/L (7-40); Alkaline Phosphatase 120 U/L (46-116); Anion Gap 5 (5-15); Aspartate Aminotransferase 20 U/L (13-40); Blood Urea Nitrogen 26 mg/dL (9-23); Calcium 9.5 mg/dL (8.5-10.1); Carbon Dioxide 29 mmol/L (20-30); Chloride 102 mmol/L (98-107); Glucose 83 mg/dL (74-106); Potassium 3.4 mmol/L (3.5-5.1); Sodium 136 mmol/L (136-145)
[2024-05-14 07:29] LABS: Bilirubin, Total 0.5 mg/dL (0.2-1.0); Total Protein 7.7 g/dL (5.7-8.2)
[2024-05-14] MEDS: ASPirin-EC 81 mg tab PO SCH (10:00)
[2024-05-14] MEDS: Sitagliptin Phosphate (Januvia) 100 MG) PO SCH (10:00)
[2024-05-14] MEDS: HYDROmorphone HCL 2 MG/ML VL/or syr IV PRN ×2 (11:39→16:36)
[2024-05-14] MEDS: DOCUSATE SOD 100 MG CAP PO SCH (11:39)
[2024-05-14] MEDS: LISINOPRIL 20 MG TAB PO SCH (11:40)
[2024-05-14] MEDS: hydroCHLOROthiazide 25 MG TAB PO SCH (11:41)
[2024-05-14] MEDS: CLINDAMYCIN 600MG IV 50 ML IV SCH (16:01)
[2024-05-14] MEDS: POTASSIUM EFFERVESENT TAB 25 MEQ PO ONE (16:01)
[2024-05-14] MEDS: ONDANSETRON HCL 4 MG/2 ML VIAL IV PRN (17:02)
[2024-05-14] MEDS: TRIAZOLAM 0.25 MG PO SCH (22:00)
[2024-05-14] MEDS: ATORVASTATIN 20 MG TAB PO SCH (22:13)
[2024-05-15] VITALS (7 sets, daily range): BP systolic 113–155; BP diastolic 54–86; PULSE 53–73; RESP 18–22; TEMP 97.4–98.5; O2SAT 91–98
[2024-05-15 07:19] LABS: Basophils # (auto) 0 10 ^3/uL (0-0.2); Eosinophils # (auto) 0.4 10 ^3/uL (0-0.8); Hematocrit 34.3 % (41.0-53.0); Lymphocytes # (auto) 2.6 10 ^3/uL (0.4-5.4); Red Blood Cells 4.54 10^6/uL (4.5-5.90)
[2024-05-15 07:22] LABS: Basophils % (auto) 0.5 % (0.0-2.0); Eosinophils % (auto) 4.2 % (0.0-7.0); Hemoglobin 11.3 g/dL (13.5-17.5); Lymphocytes % (auto) 28.1 % (10.0-50.0); Mean Corpuscular Hemoglobin 24.8 pg (28.0-32.0); Mean Corpuscular Hgb Conc. 32.9 g/dL (32.0-36.0); Mean Corpuscular Volume 75.6 fL (80.0-100.0); Monocytes # (auto) 0.8 10 ^3/uL (0-1.3); Monocytes % (auto) 8.6 % (0.0-12.0); Neutrophils # (auto) 5.5 10 ^3/uL (1.6-8.6); Neutrophils % (auto) 58.6 % (37.0-80.0); Red Cell Distribution Width 20.1 % (11.8-14.3); White Blood Cell 9.4 10^3/uL (4.4-10.8)
[2024-05-15 07:52] LABS: Alanine Aminotransferase 26 U/L (7-40); Alkaline Phosphatase 111 U/L (46-116); Anion Gap 6 (5-15); Aspartate Aminotransferase 22 U/L (13-40); BUN/Creatinine Ratio 16.4 (10.0-20.0); Blood Urea Nitrogen 23 mg/dL (9-23); Calcium 9.6 mg/dL (8.5-10.1); Carbon Dioxide 29 mmol/L (20-30); Chloride 104 mmol/L (98-107); Glucose 66 mg/dL (74-106); Magnesium 2.3 mg/dL (1.6-2.6); Potassium 3.1 mmol/L (3.5-5.1); Sodium 139 mmol/L (136-145)
[2024-05-15 07:53] LABS: Albumin 4.2 g/dL (3.2-4.8); Bilirubin, Total 0.4 mg/dL (0.2-1.0); Total Protein 8.1 g/dL (5.7-8.2)
[2024-05-15] MEDS: POTASSIUM CHL 10MEQ/100ML 100 ML IV SCH (10:00)
[2024-05-15] MEDS: hydrALAZINE HCL 20 MG/ML VL IV PRN (18:23)
[2024-05-15] MEDS: POTASSIUM EFFERVESENT TAB 25 MEQ PO ONE (22:20)
[2024-05-16] VITALS (8 sets, daily range): BP systolic 108–169; BP diastolic 77–90; PULSE 62–70; RESP 18–22; TEMP 97.6–98.7; O2SAT 92–98
[2024-05-16 07:12] LABS: Chloride 105 mmol/L (98-107); Potassium 3.5 mmol/L (3.5-5.1); Sodium 140 mmol/L (136-145)
[2024-05-16 07:13] LABS: Anion Gap 5 (5-15); Calcium 9.6 mg/dL (8.5-10.1); Carbon Dioxide 30 mmol/L (20-30)
[2024-05-16 07:19] LABS: BUN/Creatinine Ratio 15.9 (10.0-20.0); Blood Urea Nitrogen 22 mg/dL (9-23); Glucose 107 mg/dL (74-106)
[2024-05-16] MEDS: SALINE 0.65 % NASAL SPRAY 45ML BOTTLE EACHNOSTRI SCH (11:12)
[2024-05-17] VITALS (8 sets, daily range): BP systolic 133–192; BP diastolic 70–91; PULSE 40–103; RESP 18–20; TEMP 97.3–98.7; O2SAT 92–97
[2024-05-17 07:11] LABS: Eosinophils # (auto) 0.4 10 ^3/uL (0-0.8); Hemoglobin 12.1 g/dL (13.5-17.5); Mean Corpuscular Volume 75.1 fL (80.0-100.0); Monocytes # (auto) 0.7 10 ^3/uL (0-1.3)
[2024-05-17 07:14] LABS: Basophils # (auto) 0 10 ^3/uL (0-0.2); Basophils % (auto) 0.5 % (0.0-2.0); Eosinophils % (auto) 4.1 % (0.0-7.0); Hematocrit 37.1 % (41.0-53.0); Lymphocytes # (auto) 2.8 10 ^3/uL (0.4-5.4); Lymphocytes % (auto) 30.4 % (10.0-50.0); Mean Corpuscular Hemoglobin 24.5 pg (28.0-32.0); Mean Corpuscular Hgb Conc. 32.6 g/dL (32.0-36.0); Monocytes % (auto) 7.5 % (0.0-12.0); Neutrophils # (auto) 5.3 10 ^3/uL (1.6-8.6); Neutrophils % (auto) 57.5 % (37.0-80.0); Red Blood Cells 4.94 10^6/uL (4.5-5.90); Red Cell Distribution Width 19.7 % (11.8-14.3); White Blood Cell 9.2 10^3/uL (4.4-10.8)
[2024-05-17 07:48] LABS: Alanine Aminotransferase 27 U/L (7-40); Albumin 4.2 g/dL (3.2-4.8); Alkaline Phosphatase 116 U/L (46-116); Anion Gap 5 (5-15); Aspartate Aminotransferase 24 U/L (13-40); BUN/Creatinine Ratio 16.2 (10.0-20.0); Blood Urea Nitrogen 19 mg/dL (9-23); Carbon Dioxide 31 mmol/L (20-30); Chloride 102 mmol/L (98-107); Glucose 108 mg/dL (74-106); Magnesium 2.1 mg/dL (1.6-2.6); Potassium 3.5 mmol/L (3.5-5.1); Sodium 138 mmol/L (136-145)
[2024-05-17 07:49] LABS: Bilirubin, Total 0.5 mg/dL (0.2-1.0)
[2024-05-17 07:50] LABS: Total Protein 8.1 g/dL (5.7-8.2)
[2024-05-17] MEDS: hydrALAZINE HCL 20 MG/ML VL IV PRN (12:10)
[2024-05-18] VITALS (7 sets, daily range): BP systolic 124–160; BP diastolic 68–100; PULSE 60–68; RESP 18–19; TEMP 36.7; O2SAT 93–96
[2024-05-18 07:27] LABS: Chloride 102 mmol/L (98-107); Potassium 3.2 mmol/L (3.5-5.1); Sodium 137 mmol/L (136-145)
[2024-05-18 07:28] LABS: Anion Gap 5 (5-15); Carbon Dioxide 30 mmol/L (20-30)
[2024-05-18 07:33] LABS: BUN/Creatinine Ratio 14.8 (10.0-20.0); Blood Urea Nitrogen 16 mg/dL (9-23); Glucose 136 mg/dL (74-106)
[2024-05-18] MEDS ORDERED: HYDR25TA4 PO (12:13)
[2024-05-18] MEDS ORDERED: DOXY1CAP57 PO (12:13)
[2024-05-18] MEDS: POTASSIUM CHL 20 Meq TABLET PO ONE (12:38)
== END 2024-05-18 16:40 | disposition home or self-care (01) | DRG 391 ==
LOC: ER 13:57 → OVERFLOW 16:50 → WEST WING 22:52
PROVIDERS: ADMIT Nurse Practitioner Family; ATTEND Internal Medicine Geriatric Medicine
DX: K52.89 Other specified noninfective gastroenteritis and colitis (principal); N17.0 Acute kidney failure with tubular necrosis; L03.115 Cellulitis of right lower limb; I69.354 Hemiplegia and hemiparesis following cerebral infarction affecting left non-dominant side; M48.56XA Collapsed vertebra, not elsewhere classified, lumbar region, initial encounter for fracture; E11.9 Type 2 diabetes mellitus without complications; E78.5 Hyperlipidemia, unspecified; I10 Essential (primary) hypertension; K59.00 Constipation, unspecified; E87.6 Hypokalemia; R16.0 Hepatomegaly, not elsewhere classified; D64.9 Anemia, unspecified; E66.01 Morbid (severe) obesity due to excess calories; G89.29 Other chronic pain; J34.89 Other specified disorders of nose and nasal sinuses; I87.2 Venous insufficiency (chronic) (peripheral); Z68.39 Body mass index [BMI] 39.0-39.9, adult; Z82.49 Family history of ischemic heart disease and other diseases of the circulatory system; Z87.442 Personal history of urinary calculi; Z83.3 Family history of diabetes mellitus; Z90.49 Acquired absence of other specified parts of digestive tract; Z89.422 Acquired absence of other left toe(s); Z80.0 Family history of malignant neoplasm of digestive organs; Z82.0 Family history of epilepsy and other diseases of the nervous system; Z86.010 Personal history of colon polyps; Z79.4 Long term (current) use of insulin
CPT/HCPCS: 36415; 74176; 80048; 80053; 81001; 82962; 83735; 85025; 93971; G0378; J1815; J2405; J3490

== ENCOUNTER 2024-07-18 14:41 | Inpatient (IN) | payer MEDICARE, BC ==
[~2024-07-18] VITALS: Ht 157.5 cm; Wt 128.9 kg
[~2024-07-18 14:41] MED LIST changes: -CEPH250C PO; -DOXY-346 PO; +DOXY1CAP57 PO
[2024-07-18 16:10] VITALS: PULSE 83; RESP 16; O2SAT 95
[2024-07-18 16:21] LABS: Basophils # (auto) 0 10 ^3/uL (0-0.2); Basophils % (auto) 0.4 % (0.0-2.0); Eosinophils # (auto) 0.3 10 ^3/uL (0-0.8); Eosinophils % (auto) 2.2 % (0.0-7.0); Hematocrit 34.8 % (41.0-53.0); Lymphocytes # (auto) 1.8 10 ^3/uL (0.4-5.4); Lymphocytes % (auto) 14.1 % (10.0-50.0); Mean Corpuscular Hemoglobin 24.6 pg (28.0-32.0); Mean Corpuscular Hgb Conc. 31.7 g/dL (32.0-36.0); Mean Corpuscular Volume 77.7 fL (80.0-100.0); Monocytes # (auto) 0.7 10 ^3/uL (0-1.3); Monocytes % (auto) 5.6 % (0.0-12.0); Neutrophils # (auto) 9.8 10 ^3/uL (1.6-8.6); Neutrophils % (auto) 77.7 % (37.0-80.0); Platelet Count (auto) 409 10^3/uL (140-450); Red Blood Cells 4.48 10^6/uL (4.5-5.90); Red Cell Distribution Width 16.7 % (11.8-14.3); White Blood Cell 12.5 10^3/uL (4.4-10.8)
[2024-07-18 16:31] LABS: Anion Gap 8 (5-15); Carbon Dioxide 28 mmol/L (20-30); Chloride 104 mmol/L (98-107); Potassium 3.4 mmol/L (3.5-5.1); Sodium 140 mmol/L (136-145)
[2024-07-18 16:32] LABS: Calcium 9.8 mg/dL (8.7-10.4)
[2024-07-18 16:37] LABS: Blood Urea Nitrogen 24 mg/dL (9-23); Glucose 126 mg/dL (74-106)
[2024-07-18 16:44] LABS: Lactic Acid w/Reflex 2.4 mmol/L (0.4-2.0)
[2024-07-18] MEDS: SODIUM CHLORIDE 0.9% 1,000 ML IV ONE (17:30)
[2024-07-18] MEDS: KETOROLAC TROMETH 30 MG/ML 1ML VIAL IV ONE (17:55)
[2024-07-18] MEDS: ONDANSETRON HCL 4 MG/2 ML VIAL IV ONE (17:55)
[2024-07-18] MEDS: MORPHINE SULFATE 4 MG/ML SYR/VIAL IV ONE (17:56)
[2024-07-18] MEDS: VANCOMYCIN 1.75GM/350ML 350 ML IV ONE (18:09)
[2024-07-18] MEDS: HYDROmorphone HCL 2 MG/ML VL/or syr IV ONE (19:09)
[2024-07-18] MEDS ORDERED: DEXTROSE (50%) 50ML SYRG IV PRN (21:15)
[2024-07-18] MEDS ORDERED: ONDANSETRON HCL 4 MG/2 ML VIAL IV PRN (21:15)
[2024-07-18] MEDS ORDERED: ACETAMINOPHEN 325 MG TAB PO PRN (21:15)
[2024-07-18] MEDS ORDERED: TEMAZEPAM 15 MG CAP PO PRN (21:15)
[2024-07-18] MEDS: ATORVASTATIN 20 MG TAB PO SCH (22:18)
[2024-07-18] MEDS: CLINDAMYCIN 600MG IV 50 ML IV SCH (22:19)
[2024-07-19] MEDS: InsuLIN REG 1unit/0.01ml Soln (100units/ml) SC SCH
[2024-07-19] MEDS: ACCU-CHEK COMFORT CURVE STRIP VI SCH (00:28)
[2024-07-19] MEDS: HYDROcodone-ACET 5/325MG TAB PO PRN (00:32)
[2024-07-19] MEDS: MORPHINE SULFATE 4 MG/ML SYR/VIAL IV ONE (02:55)
[2024-07-19 04:48] LABS: Eosinophils # (auto) 0.4 10 ^3/uL (0-0.8); Eosinophils % (auto) 3.7 % (0.0-7.0); Hemoglobin 10.5 g/dL (13.5-17.5)
[2024-07-19 04:50] LABS: Basophils # (auto) 0 10 ^3/uL (0-0.2); Basophils % (auto) 0.3 % (0.0-2.0); Hematocrit 32.2 % (41.0-53.0); Lymphocytes # (auto) 2.3 10 ^3/uL (0.4-5.4); Lymphocytes % (auto) 22.1 % (10.0-50.0); Mean Corpuscular Hemoglobin 25.5 pg (28.0-32.0); Mean Corpuscular Hgb Conc. 32.7 g/dL (32.0-36.0); Mean Corpuscular Volume 78.1 fL (80.0-100.0); Monocytes # (auto) 0.8 10 ^3/uL (0-1.3); Monocytes % (auto) 7.9 % (0.0-12.0); Neutrophils # (auto) 6.9 10 ^3/uL (1.6-8.6); Platelet Count (auto) 368 10^3/uL (140-450); Red Blood Cells 4.12 10^6/uL (4.5-5.90); Red Cell Distribution Width 16.6 % (11.8-14.3); White Blood Cell 10.4 10^3/uL (4.4-10.8)
[2024-07-19 05:00] LABS: Chloride 106 mmol/L (98-107); Sodium 142 mmol/L (136-145)
[2024-07-19 05:01] LABS: Anion Gap 7 (5-15); Calcium 9.2 mg/dL (8.7-10.4); Carbon Dioxide 29 mmol/L (20-30)
[2024-07-19 05:06] LABS: BUN/Creatinine Ratio 18.2 (10.0-20.0); Blood Urea Nitrogen 24 mg/dL (9-23); Glucose 92 mg/dL (74-106)
[2024-07-19 05:08] LABS: Urine Bacteria None Seen /hpf (None Seen)
[2024-07-19 05:17] LABS: Urine Blood 1+ /uL (Negative); Urine Clarity Clear (Clear); Urine Color Light-Yellow (Yellow); Urine Hyaline Cast FEW /lpf (0 - 2); Urine Protein, UAD 3+ (Negative); Urine Specific Gravity 1.021 (1.001-1.035); Urine Urobilinogen Normal (Negative); Urine WBC 3 /hpf (0 - 3)
[2024-07-19 08:00] VITALS: PULSE 67; RESP 16; O2SAT 95
[2024-07-19] MEDS: hydroCHLOROthiazide 25 MG TAB PO SCH (09:32)
[2024-07-19] MEDS: FUROSEMIDE 40 MG TAB PO SCH (09:32)
[2024-07-19] MEDS: amLODIPine BESYLATE 5 MG TAB PO SCH (09:32)
[2024-07-19] MEDS: cefTRIAXone 1GM/50ML D5W 50 ML IV SCH (09:33)
[2024-07-19] MEDS: ENOXAPARIN SOD 40 MG/0.4 ML SYRINGE SC SCH (09:33)
[2024-07-19] MEDS: HYDROmorphone HCL 2 MG/ML VL/or syr IV ONE (10:00)
[2024-07-19 11:27] VITALS: BP 165/89; PULSE 62; RESP 20; TEMP 97.6; O2SAT 95
[2024-07-19 13:08] VITALS: BP 165/87; PULSE 63; RESP 18; TEMP 97.6; O2SAT 95
[2024-07-19] MEDS ORDERED: VANCOMYCIN PER PHARMACY 0 MG IV SCH (13:15)
[2024-07-19] MEDS: POTASSIUM EFFERVESENT TAB 25 MEQ PO ONE (13:37)
[2024-07-19] MEDS: VANCOMYCIN 1GM/200ML 200 ML IV ONE ×2 (13:37→14:56)
[2024-07-19] MEDS: HYDROmorphone HCL 2 MG/ML VL/or syr IV PRN (13:38)
[2024-07-19] MEDS: hydrALAZINE HCL 25 MG TAB PO ONE (15:29)
[2024-07-19 16:33] VITALS: BP 158/77; PULSE 70; RESP 18; TEMP 98; O2SAT 95
[2024-07-19] MEDS: OXYCODONE W/ ACETAMINOPHEN 5/325MG TABLET PO PRN (17:10)
[2024-07-19 20:00] VITALS: RESP 16; O2SAT 96
[2024-07-20] VITALS (8 sets, daily range): BP systolic 147–180; BP diastolic 75–92; PULSE 54–97; RESP 16–22; TEMP 97.8–98.3; O2SAT 93–100
[2024-07-20] MEDS ORDERED: VANCOMYCIN 1.25GM/250ML 250 ML IV SCH (01:00)
[2024-07-20] MEDS: VANCOMYCIN 1GM/200ML 200 ML IV SCH (01:14)
[2024-07-20 06:18] LABS: Chloride 104 mmol/L (98-107); Potassium 2.9 mmol/L (3.5-5.1); Sodium 139 mmol/L (136-145)
[2024-07-20 06:19] LABS: Anion Gap 5 (5-15); Carbon Dioxide 30 mmol/L (20-30)
[2024-07-20 06:20] LABS: Calcium 9.4 mg/dL (8.7-10.4)
[2024-07-20 06:24] LABS: Glucose 143 mg/dL (74-106)
[2024-07-20 06:25] LABS: BUN/Creatinine Ratio 16.4 (10.0-20.0); Blood Urea Nitrogen 20 mg/dL (9-23)
[2024-07-20] MEDS: POTASSIUM EFFERVESENT TAB 25 MEQ PO ONE (09:38)
[2024-07-20] MEDS: DOCUSATE SOD 100 MG CAP PO PRN (09:39)
[2024-07-20] MEDS: MORPHINE SULFATE 4 MG/ML SYR/VIAL IV PRN (12:43)
[2024-07-20] MEDS: LACTULOSE 20Gm/30ML SOLN PO PRN (12:43)
[2024-07-20] MEDS: FUROSEMIDE 20 MG/2 ML VIAL IV SCH (17:31)
[2024-07-21] VITALS (7 sets, daily range): BP systolic 116–179; BP diastolic 66–92; PULSE 54–70; RESP 18–20; TEMP 97.5–98.6; O2SAT 92–97
[2024-07-21 06:11] LABS: Basophils # (auto) 0.1 10 ^3/uL (0-0.2); Basophils % (auto) 0.7 % (0.0-2.0); Eosinophils # (auto) 0.4 10 ^3/uL (0-0.8); Eosinophils % (auto) 4.2 % (0.0-7.0); Hematocrit 36.3 % (41.0-53.0); Hemoglobin 11.9 g/dL (13.5-17.5); Lymphocytes # (auto) 2.5 10 ^3/uL (0.4-5.4); Mean Corpuscular Hemoglobin 25.2 pg (28.0-32.0); Mean Corpuscular Hgb Conc. 32.6 g/dL (32.0-36.0); Mean Corpuscular Volume 77.1 fL (80.0-100.0); Monocytes # (auto) 0.6 10 ^3/uL (0-1.3); Monocytes % (auto) 6.7 % (0.0-12.0); Neutrophils % (auto) 62.4 % (37.0-80.0); Nucleated Red Blood Cells % 0.1 %; Platelet Count (auto) 393 10^3/uL (140-450); Red Blood Cells 4.71 10^6/uL (4.5-5.90); Red Cell Distribution Width 16.8 % (11.8-14.3); White Blood Cell 9.7 10^3/uL (4.4-10.8)
[2024-07-21 06:30] LABS: Anion Gap 7 (5-15); Carbon Dioxide 30 mmol/L (20-30); Chloride 102 mmol/L (98-107); Sodium 139 mmol/L (136-145)
[2024-07-21 06:31] LABS: Calcium 9.7 mg/dL (8.7-10.4)
[2024-07-21 06:36] LABS: BUN/Creatinine Ratio 14.4 (10.0-20.0); Blood Urea Nitrogen 19 mg/dL (9-23); Glucose 152 mg/dL (74-106); Magnesium 2.1 mg/dL (1.6-2.6)
[2024-07-21] MEDS: LISINOPRIL 20 MG TAB PO SCH (09:36)
[2024-07-21] MEDS: POTASSIUM EFFERVESENT TAB 25 MEQ PO SCH (09:37)
[2024-07-21] MEDS ORDERED: PREG50CA80 PO (10:15)
[2024-07-21 11:36] LABS: Erythrocyte Sedimentation Rate 82 mm/hr (0-20)
[2024-07-21] MEDS: METOCLOPRAMIDE HCL 5MG/ml INJ 2ml VIAL IV ONE (12:49)
[2024-07-21] MEDS: PREGABALIN 25 MG CAP PO SCH (13:34)
[2024-07-21] MEDS: LACTULOSE 20Gm/30ML SOLN PO SCH (13:34)
[2024-07-21] MEDS: VANCOMYCIN 1GM/200ML 200 ML IV SCH (14:08)
[2024-07-21] MEDS: MORPHINE SULFATE 4 MG/ML SYR/VIAL IV PRN (15:48)
[2024-07-22 00:39] VITALS: BP 160/69; PULSE 66; RESP 19; TEMP 97.9; O2SAT 91
[2024-07-22 04:38] VITALS: BP 159/78; PULSE 57; RESP 20; TEMP 97.8; O2SAT 95
[2024-07-22 06:05] LABS: Calcium 9.3 mg/dL (8.7-10.4); Chloride 102 mmol/L (98-107); Sodium 139 mmol/L (136-145)
[2024-07-22 06:06] LABS: Anion Gap 5 (5-15); Carbon Dioxide 32 mmol/L (20-30)
[2024-07-22 06:11] LABS: BUN/Creatinine Ratio 14.6 (10.0-20.0); Blood Urea Nitrogen 19 mg/dL (9-23); Glucose 158 mg/dL (74-106)
[2024-07-22 08:43] VITALS: BP 144/81; PULSE 57; RESP 18; TEMP 98.5; O2SAT 95
[2024-07-22] MEDS: POTASSIUM CHLORIDE 20 MEQ, LIDOCAINE 1% (LOCAL ANESTH.) 2 ML in SODIUM CHL 0.9% 100 ML IV ONE (09:15)
[2024-07-22] MEDS ORDERED: BACDST PO (10:22)
[2024-07-22 12:38] VITALS: BP 147/56; PULSE 63; RESP 18; TEMP 98.3; O2SAT 92
[2024-07-22 12:49] VITALS: PULSE 68; RESP 18
[2024-07-22 13:36] VITALS: BP 127/68; TEMP 36.8
== END 2024-07-22 15:05 | disposition home health service (06) | DRG 603 ==
LOC: ER 14:41 → OVERFLOW 21:09 → EAST 07-19 11:48
PROVIDERS: ADMIT Internal Medicine; ATTEND Nurse Practitioner Acute Care
DX: L03.115 Cellulitis of right lower limb (principal); I16.9 Hypertensive crisis, unspecified; R65.10 Systemic inflammatory response syndrome (SIRS) of non-infectious origin without acute organ dysfunction; I13.0 Hypertensive heart and chronic kidney disease with heart failure and stage 1 through stage 4 chronic kidney disease, or unspecified chronic kidney disease; Z68.43 Body mass index [BMI] 50.0-59.9, adult; E66.01 Morbid (severe) obesity due to excess calories; E11.22 Type 2 diabetes mellitus with diabetic chronic kidney disease; E11.610 Type 2 diabetes mellitus with diabetic neuropathic arthropathy; G89.4 Chronic pain syndrome; N18.31 Chronic kidney disease, stage 3a; I50.9 Heart failure, unspecified; E78.5 Hyperlipidemia, unspecified; Z91.199 Patient's noncompliance with other medical treatment and regimen due to unspecified reason; Z79.4 Long term (current) use of insulin; Z79.899 Other long term (current) drug therapy
CPT/HCPCS: 36415; 73630; 80048; 80202; 81001; 82962; 83036; 83605; 83735; 84132; 85025; 85652; 87040; 93005; 93971; 96361; 96365; 96367; 96375; 96376; G0378; J1815; J1885; J2001; J2405; J3490

== ENCOUNTER 2024-10-13 17:18 | Inpatient (IN) | payer MEDICARE, BC ==
[~2024-10-13] VITALS: Ht 177.8 cm; Wt 123.3 kg
[~2024-10-13 17:18] MED LIST changes: +BACDST PO; +PREG50CA80 PO
[2024-10-13 18:10] VITALS: PULSE 95; RESP 30; O2SAT 94
--- NOTE | 2024-10-13 18:41 | ED.PDOC ---
History of Present Illness HPI Comments A 69 year old male brought by EMS presents to the ED with a chief complaint of syncope onset today. Patient states he was in the bathroom when he fell and had a syncopal episode. He does not recall events prior of after the syncope episode and states it lasted about 4 hours. Patient also states he has been experiencing nausea and vomiting for the past 2 days. He is currently experiencing Lt knee pain with swelling. He had his LT great toe amputated about 2 years ago and gets dressings changed weekly with Dr. Watts and last change was on 10/07/2024. Patient has chronic pain and takes Percocet daily. He has a past medical history of DM, HTN, HLD, CVA, Kidney stones. Denies any dizziness/lightheadedness. No other symptoms or modifying factors present at this time. Chief Complaint: Syncope Time Seen by MD: 18:35 Primary Care Provider: JOLIE Reviewed Notes: Medications, Allergies Allergies: Coded Allergies: Morphine (Verified Allergy, Unknown, 10/13/24) Home Meds Active Scripts Sulfamethoxazole W/Trimethopri (Bactrim Ds Tablet) 1 Tab Tb, 1 TAB PO BID for 7 Days, #14 TAB Prov:LUIS NAIR MANAGER TRAFFIC 07/22/24 Doxycycline Monohydrate (Doxycycline Monohydrate) 100 Mg Cap, 1 CAP PO BID, #20 CAP Prov:MELISSA READ MD 05/18/24 Hydrochlorothiazide (Hydrochlorothiazide) 25 Mg Tab, 25 MG PO DAILY for 30 Days, #30 MG 5 Refills Prov:MELISSA READ MD 05/18/24 Polyethylene Glycol 3350 (Miralax) 17 Gm Pow, 17 GM PO BID for 30 Days, #60 POW Prov:MANDY LARES RESIDENT 08/11/23 Insulin Detemir (Levemir) Inj, 20 UNITS SC BID for 30 Days, #60 INJ Prov:MANDY LARES RESIDENT 08/11/23 Reported Medications Pregabalin (Pregabalin) 50 Mg Cap, 1 CAP PO TID 07/21/24 Oxycodone W/ Acetaminophen (Percocet 5/325MG) 1 Tab Tb, 1 TAB PO Q6HPRN PRN for MODERATE PAIN (4-6 PAIN SCALE), #90 TAB 03/04/23 Pregabalin (Lyrica) 50 Mg Cap, 1 CAP PO TID, #90 CAP 03/04/23 Amlodipine Besylate (NORVASC TABLET) 5 Mg Tb, 10 MG PO DAILY, TAB 03/04/23 Triazolam (Halcion) 0.25 Mg Tab, 2 TAB PO QPM, #60 TAB 05/01/18 Sitagliptin Phosphate (Januvia) 50 Mg Tab, 100 MG PO DAILY, #30 TAB 5 Refills 05/01/18 Glipizide (Glipizide) 10 Mg Tab, 10 MG PO BID for 30 Days, MG 05/01/18 Atorvastatin Calcium (ATORVASTATIN CALCIUM) 40 Mg Tab, 1 TAB PO DAILY, #30 TAB 5 Refills 05/01/18 Aspirin (Aspir-Low) 81 Mg Tab, 81 MG PO DAILY for 30 Days, MG 05/01/18 Lisinopril (Lisinopril) 40 Mg Tab, 40 MG PO DAILY for 30 Days, MG 03/11/18 Metformin Hydrochloride (Metformin Hcl) 500 Mg Tab, 500 MG PO BID for 30 Days, MG 03/20/17 Information Source: Patient Mode of Arrival: EMS Severity: Moderate Timing: Hours Duration: Since onset Prehospital treatment: None Past Medical History PAST MEDICAL HISTORY: CVA, DM, High Lipids, HTN, Kidney Stones, Thyroid Surgical History: Appendectomy Surgical History (Other): LT great toe amputation Family History Family History: Family hx of DM, Family hx of Cancer, Family hx of heart shamika Social History Smoker: Non-Smoker Alcohol: Occasionally Drugs: Denies Drug Use Lives In: Home Constitutional: denies: chills, diaphoresis, fatigue, fever, malaise, sweats, weakness, others EENTM: denies: blurred vision, double vision, ear bleeding, ear discharge, ear drainage, ear pain, ear ringing, eye pain, eye redness, hearing loss, mouth pain, mouth swelling, nasal discharge, nose bleeding, nose congestion, nose naila n, photophobia, tearing, throat pain, throat swelling, voice changes, others Respiratory: denies: cough, hemoptysis, orthopnea, SOB at rest, shortness of breath, SOB with excertion, stridor, wheezing, others Cardiovascular: denies: chest pain, dizzy spells, diaphoresis, Dyspnea on exertion, edema, irregular heart beat, left arm pain, lightheadedness, palpitations, PND, syncope, others Gastrointestinal: reports: nausea, vomiting; denies: abdomen distended, abdominal pain, blood streaked bowels, constipated, diarrhea, dysphagia, difficulty swallowing, hematemesis, melena, poor appetite, poor fluid intake, rectal bleeding, rectal pain, others Genitourinary: denies: burning, dysuria, flank pain, frequency, hematuria, incontinence, penile discharge, penile sore, pain, testicle pain, testicle swelling, urgency, others Neurological: reports: fainting; denies: dizziness, headache, left sided numbness, left sided weakness, numbness, paresthesia, pre-existing deficit, right sided numbness, right sided weakness, seizure, speech problems, tingling, tremors, weakness, others Musculoskeletal: reports: joint pain (LT knee pain), joint swelling (LT knee swelling); denies: back pain, gout, muscle pain, muscle stiffness, neck pain, others Integumetry: denies: bruises, change in color, change in hair/nails, dryness, laceration, lesions, lumps, rash, wounds, others Allergic/Immunocompromised: denies: Difficulty Healing, Frequent Infections, Hives, Itching, others Hematologic/Lymphatic: denies: anemia, blood clots, easy bleeding, easy bruising, swollen glands, others Endocrine: denies: excessive hunger, excessive sweating, excessive thirst, excessive urination, flushing, intolerance to cold, intolerance to heat, un explained weight gain, unexplained weight loss, others Psychiatric: denies: anxiety, bipolar disorder, depression, hopeless, panic disorder, schizophrenia, sleepless, suicidal, others All Other Systems: Reviewed and Negative Physical Exam General Appearance: Normal, Severe Distress HEENT: Normal ENT Inspection, Pharynx Normal, TMs Normal Neck: Full Range of Motion, Non-Tender, Normal, Normal Inspection Respiratory: Chest Non-Tender, Lungs Clear, No Accessory Muscle Use, No Respiratory Distress, Normal Breath Sounds Cardiovascular: No Edema, No JVD, No Murmur, No Gallop, Normal Peripheral Pulses, Regular Rate/Rhythm Breast Exam: Deferred Gastrointestinal: No Organomegaly, Non Tender, No Pulsatile Mass, Normal Bowel Sounds, Soft Genitalia: Deferred Pelvic: Deferred Rectal: Deferred Extremities: No calf tenderness, Other (LT foot with open wound) Musculoskeletal : Apperance: Normal Neurologic: Alert, agricultural purchasing agent II-XII nml as Tested, No Motor Deficits, Normal Affect, Normal Mood, No Sensory Deficits Cerebellar Function: Normal Reflexes: Normal Skin: Dry, Normal Color, Warm Lymphatic: No Adenopathy Was a procedure done? Was a procedure done?: No EKG EKG : Cardiac Rhythm: NSR (94) Differential Dx Considerations may include: Intracranial hemorrhage mass lesion infarction sepsis X-Ray, Labs, Meds, VS Vital Signs Date Time Temp Pulse Resp B/P (MAP) Pulse Ox O2 Delivery O2 Flow Rate FiO2 10/13/24 21:45 99.7 97 15 112/54 (73) 91 99.7 10/13/24 20:30 96 34 143/81 10/13/24 20:00 94 19 140/71 10/13/24 19:30 99.5 94 29 132/72 (92) 93 99.5 10/13/24 19:30 94 29 93 Nasal Cannula* 4 36 10/13/24 18:10 95 30 94 Nasal Cannula* 3 32 10/13/24 18:10 95 30 115/53 (73) 94 10/13/24 17:50 94 Lab Test 10/13/24 22:12 10/13/24 22:00 10/13/24 21:44 10/13/24 19:50 Range/Units Troponin I High Sensitivity Pending 259 *H </=54 ng/L Urine Color Pending Urine Clarity Pending Urine pH Pending Urine Specific [place] Pending Urine Protein Pending Urine Ketones Pending Urine Blood Pending Urine Nitrite Pending Urine Bilirubin Pending Urine Urobilinogen Pending Urine Leukocyte Esterase Pending Urine RBC Pending Urine WBC Pending Urine Squamous Epithelial Cells Pending Urine Bacteria Pending Urine Glucose Pending Lactic Acid Level 3.2 *H 4.5 *H 0.4-2.0 mmol/L Test 10/13/24 18:50 Range/Units White Blood Count 36.0 *H 4.4-10.8 10^3/uL Red Blood Count 4.70 4.5-5.90 10^6/uL Hemoglobin 12.2 L 13.5-17.5 g/dL Hematocrit 36.9 L 41.0-53.0 % Mean Corpuscular Volume 78.5 L 80.0-100.0 fL Mean Corpuscular Hemoglobin 25.9 L 28.0-32.0 pg Mean Corpuscular Hemoglobin Concent 33.0 32.0-36.0 g/dL Red Cell Distribution Width 17.8 H 11.8-14.3 % Platelet Count 266 140-450 10^3/uL Mean Platelet Volume 8.4 6.9-10.8 fL Neutrophils (%) (Auto) 37.0-80.0 % Lymphocytes (%) (Auto) 10.0-50.0 % Monocytes (%) (Auto) 0.0-12.0 % Basophils (%) (Auto) 0.0-2.0 % Neutrophils # (Auto) 1.6-8.6 10 ^3/uL Lymphocytes # (Auto) 0.4-5.4 10 ^3/uL Monocytes # (Auto) 0-1.3 10 ^3/uL Differential Total Cells Counted 100.0 100 Neutrophils % (Manual) 63 37.0-80.0 Band Neutrophils % (Manual) 30 Lymphocytes % (Manual) 2 L 10.0-50.0 Monocytes % (Manual) 4 0-12 Eosinophils % (Manual) 0 0-7 Basophils % (Manual) 0 0.0-2.0 Metamyelocytes % (manual) 1 Myelocytes % (Manual) 0 Promyelocytes % (Manual) 0 Blast Cells % (Manual) 0 Reactive Lymphocytes 0 Platelet Estimate Adequate Microcytosis Slight Prothrombin Time 13.1 H 9.3-11.8 sec Prothrombin Time INR 1.26 H 0.9-1.15 Activated Partial Thromboplast Time 34.4 24.5-34.5 SEC Sodium Level 135 L 136-145 mmol/L Potassium Level 2.4 *L 3.5-5.1 mmol/L Chloride Level 95 L 98-107 mmol/L Carbon Dioxide Level 24 20-31 mmol/L Anion Gap 16 H 5-15 Blood Urea Nitrogen 46 H 9-23 mg/dL Creatinine 2.61 H 0.700-1.30 mg/dL Glomerular Filtration Rate Calc 26 >90 mL/min BUN/Creatinine Ratio 17.6 10.0-20.0 Serum Glucose 279 H 74-106 mg/dL Calcium Level 9.3 8.7-10.4 mg/dL Magnesium Level 2.2 1.6-2.6 mg/dL Total Bilirubin 1.2 H 0.2-1.0 mg/dL Aspartate Amino Transferase (AST) 274 H 13-40 U/L Alanine Aminotransferase (ALT) 82 H 7-40 U/L Alkaline Phosphatase 116 46-116 U/L Troponin I High Sensitivity 223 *H </=54 ng/L B-Type Natriuretic Peptide 379.72 0-100 pg/mL Total Protein 6.9 5.7-8.2 g/dL Albumin 3.7 3.2-4.8 g/dL Current Medications Medications (Trade) Dose Ordered Sig/Olinda Route Start Time Stop Time Status Last Admin Hydromorphone HCl (Dilaudid Injection) 1 mg ONCE ONCE IV 10/13/24 18:45 10/13/24 18:46 DC 10/13/24 20:00 Sodium Chloride 1,000 ml @ 1,000 mls/hr Q1H ONCE IV 10/13/24 18:45 10/13/24 19:44 DC 10/13/24 19:15 Ondansetron HCl (Zofran) 4 mg ONCE ONCE IV 10/13/24 18:45 10/13/24 18:46 DC 10/13/24 19:58 Sodium Chloride 1,000 ml @ 1,000 mls/hr Q1H ONCE IV 10/13/24 19:45 10/13/24 20:44 DC 10/13/24 20:01 Vancomycin HCl 200 ml @ 200 mls/hr ONCE ONCE IV 10/13/24 19:45 10/13/24 20:44 DC 10/13/24 21:09 Piperacillin Sod/ Tazobactam Sod 100 ml @ 100 mls/hr ONCE ONCE IV 10/13/24 20:00 10/13/24 20:59 DC 10/13/24 20:09 Potassium Chloride 100 ml @ 50 mls/hr Q2H IV 10/13/24 21:00 10/14/24 00:59 10/13/24 22:07 Potassium Chloride (Klor-Con Tablet) 60 meq ONCE ONCE PO 10/13/24 20:00 10/13/24 20:01 DC 10/13/24 20:01 Aspirin 325 mg ONCE ONCE PO 10/13/24 20:00 10/13/24 20:01 DC 10/13/24 20:01 [place] [id number] Ph: [phone] DIAGNOSTIC IMAGING Diagnostic Imaging Report : [id number] Signed PATIENT: JOHN SCHNEIDER ACCT: [id number] UNIT: [id number] : 1955 LOC: ER ROOM / BED: / AGE / SEX: 69 / M ADM STATUS: REG ER SERVICE 36 ORDERING PHYSICIAN: TRAVIS JOHNSTON MD PROCEDURE(s): CS2 - CERVICAL WITHOUT CONTRAST REASON: fall ORDER NUMBER(s): [id number], ACCESSION NUMBER(s): [id number] EXAM: CT CERVICAL WITHOUT CONTRAST INDICATION: fall EXAM DATE: 10/13/2024 08:11 PM COMPARISON: CT CHEST WITHOUT CONTRAST on DOS: 09/02/23, CT CT L FOOT WO CONTRAST on DOS: 08/30/23, CT CT R FOOT WO CONTRAST on DOS: 08/30/23 TECHNIQUE: Multiple axial CT images of the cervical spine were obtained using bone algorithm. Axial and coronal reformatting was done. Bone and soft tissue windows were reviewed. Radiation Dose Information: CT Dose: CTDI volume is 28.83 mGy. Dose-length product is 183.02 mGy*cm FINDINGS: The cervical alignment is intact. No acute cervical spine fracture is identified. The vertebral body heights are intact. No suspicious osseous lesions are identified. Multilevel moderate degenerative changes of the cervical spine There is no prevertebral soft tissue swelling. Mucous retention cysts within the right sphenoid and left maxillary sinuses. Near-complete opacification of the right maxillary sinus. Mucoperiosteal thickening of the ethmoid air cells. The mastoids are clear. Multiple teeth with dental caries. IMPRESSION: No evidence of acute cervical spine fracture or traumatic malalignment. All CT scans at this medical facility are performed using dose modulation techniques as appropriate to a performed exam including the following: Automated exposure control was utilized; adjustment of the MA and/or KV according to patient size; and use of iterative reconstruction technique. ATED BY: SAIDA CUI DO DICTATED DATE/TIME: 10/13/242045 SIGNED BY: SAIDA CUI DO SIGNED DATE/TIME: 10/13/242045 CC: [place] [id number] Ph: [phone] DIAGNOSTIC IMAGING Diagnostic Imaging Report : [id number] Signed PATIENT: JOHN SCHNEIDER ACCT: [id number] UNIT: [id number] : 1955 LOC: ER ROOM / BED: / AGE / SEX: 69 / M ADM STATUS: REG ER SERVICE 36 ORDERING PHYSICIAN: TRAVIS JOHNSTON MD PROCEDURE(s): CXRP - CHEST PORTABLE REASON: syncope ORDER NUMBER(s): [id number], ACCESSION NUMBER(s): [id number] CHEST RADIOGRAPH Indication:syncope Technique: Single frontal view of the chest was obtained Comparison: XY CHEST PORTABLE on DOS: 09/01/23, XY CHEST PORTABLE on DOS: 08/31/23, XY CHEST PORTABLE on DOS: 08/31/23 FINDINGS: Lines and Tubes: None Lungs: No focal consolidation. Pleura: No effusion. No pneumothorax. Cardiomediastinal contours: Unremarkable Bones: No acute osseous abnormality. IMPRESSION: No acute cardiopulmonary disease. ATED BY: SAIDA CUI DO DICTATED DATE/TIME: 10/13/242003 SIGNED BY: SAIDA CUI DO SIGNED DATE/TIME: 10/13/242003 CC: [place] [address] Ph: [phone] DIAGNOSTIC IMAGING Diagnostic Imaging Report : [id number] Signed PATIENT: JOHN SCHNEIDER ACCT: [id number] UNIT: [id number] : 1955 LOC: ER ROOM / BED: / AGE / SEX: 69 / M ADM STATUS: REG ER SERVICE 36 ORDERING PHYSICIAN: TRAVIS JOHNSTON MD PROCEDURE(s): HWOCT - HEAD WITHOUT CONTRAST REASON: syncope ORDER NUMBER(s): [id number], ACCESSION NUMBER(s): [id number] CLINICAL HISTORY: syncope TECHNIQUE: Helical imaging carried out from skull base to vertex without intravenous contrast. This exam was performed according to our departmental dose optimization program. Up-to-date CT equipment and radiation dose reduction techniques are utilized as appropriate. WID: COMPARISON: None FINDINGS: Mild patchy low attenuation in the cerebral white matter consistent with nonspecific white matter disease. There is a chronic lacunar infarct in the right thalamus. The ventricles and subarachnoid spaces are normal in size and configuration. There is calcified plaque in the intracranial internal carotid and vertebral arteries There is no midline shift or mass effect. The [place] white matter interfaces are maintained. The basal cisterns are patent. There is no evidence of acute intracranial hemorrhage or extra-axial fluid collection. The mastoid air cells are well-aerated. There is a mucous retention cyst or polyp in the left s phenoid sinus. There is paranasal sinus opacification and mucosal thickening with near-complete opacification of the right maxillary sinus. IMPRESSION: 1. No acute intracranial abnormality. 2. Mild chronic microvascular ischemic change. 3. Chronic lacunar infarct in the right thalamus 4. Paranasal sinus mucosal thickening and near-complete opacification of the right maxillary sinus. Correlate clinically for acute sinusitis ATED BY: EDYTA OBRIEN MD DICTATED DATE/TIME: 10/13/242105 SIGNED BY: EDYTA OBRIEN MD SIGNED DATE/TIME: 10/13/242105 CC: [place] [address]. Lactic acid is 4.5. Troponin is 223 and 259. EKG shows no signs of changes Potassium is 2.4 BUN is 46 and creatinine is 2.6. The patient was put on Zosyn and vancomycin for sepsis. ABG is pending Dilaudid and Zofran was given along with 3 L IV fluids for sepsis. The patient will be admitted to the hospitalist for further evaluation and care. [place] [address] Ph: [phone] DIAGNOSTIC IMAGING Diagnostic Imaging Report : [id number] Signed PATIENT: JOHN SCHNEIDER ACCT: [id number] UNIT: [id number] : 1955 LOC: ER ROOM / BED: / AGE / SEX: 69 / M ADM STATUS: REG ER SERVICE 44 ORDERING PHYSICIAN: TRAVIS JOHNSTON MD PROCEDURE(s): LFOT2 - L FOOT 2 VIEW XRAY REASON: fall ORDER NUMBER(s): [id number], ACCESSION NUMBER(s): [id number] CLINICAL INDICATION: fall TECHNIQUE: 2 radiographic views of the left foot were obtained. Comparison: XY R FOOT 3 VIEW XRAY on DOS: 07/18/24, XY R FOOT 3 VIEW XRAY on DOS: 08/30/23, XY R FOOT 3 VIEW XRAY on DOS: 07/31/23 FINDINGS/IMPRESSION: There is postsurgical changes of transmetatarsal amputation of the 1st toe with surgical clips within the adjacent soft tissues. There are bony exostosis of the residual 1st metatarsal and medial 2nd metatarsal. There appears to be stabilization of the distal phalanx of the 2nd toe on the middle phalanx. There is chronic fracture deformity of the dorsum of the distal midfoot. Small plantar calcaneal bony spur. Mild dorsal surface soft tissue edema. No evidence of acute traumatic fractures. ATED BY: SAIDA CUI DO DICTATED DATE/TIME: 10/13/242003 SIGNED BY: SAIDA CUI DO SIGNED DATE/TIME: 10/13/242003 CC: [place] [id number] Ph: [phone] DIAGNOSTIC IMAGING Diagnostic Imaging Report : [id number] Signed PATIENT: JOHN SCHNEIDER ACCT: [id number] UNIT: [id number] : 1955 LOC: ER ROOM / BED: / AGE / SEX: 69 / M ADM STATUS: REG ER SERVICE 190 ORDERING PHYSICIAN: TRAVIS JOHNSTON MD PROCEDURE(s): LKNE2 - L KNEE 2V XRAY REASON: fall ORDER NUMBER(s): [id number], ACCESSION NUMBER(s): [id number] CLINICAL INDICATION: fall TECHNIQUE: 2 radiographic views of the left knee were obtained. Comparison: None FINDINGS/IMPRESSION: There is no evidence of acute fracture or dislocation. The visualized joint space is well maintained. The alignment is anatomical. There is no radiopaque foreign body. ATED BY: SAIDA CUI DO DICTATED DATE/TIME: 10/13/242000 SIGNED BY: SAIDA CUI DO SIGNED DATE/TIME: 10/13/242000 CC: Time of 1ST Reevaluation: 19:05 Reevaluation 1ST: Unchanged Patient Education/Counseling: Diagnosis, Treatment, Prognosis Family Education/Counseling: No Family Present Departure 1 Departure Time of Disposition: 22:47 Impression: Primary Impression: Syncope Qualified Codes: R55 - Syncope and collapse Additional Impressions: Syncope and collapse Sepsis Qualified Codes: A41.9 - Sepsis, unspecified organism Leg wound, left Qualified Codes: S81.802A - Unspecified open wound, left lower leg, initial encounter Hypokalemia Fall Qualified Codes: W19.XXXA - Unspecified fall, initial encounter Disposition: ADMITTED INPATIENT Admit to: Tele Condition: Guarded Critical Care Note Critical Care Time?: Yes (1 hr-critical care time only) Stability Stability form required: No Heart Score Heart Score: Heart Score Response (Comments) Value History N/A 0 EKG Normal 0 Age >65 2 Risk Factors >3 or Hx ASHD 2 Troponin Normal limit 0 Total 4 I personally scribed for TRAVIS JOHNSTON MD (DWIGHT) on 10/13/24 at 18:41. Electronically submitted by Juanis Mohan ([email or web address]). I personally scribed for TRAVIS JOHNSTON MD (DWIGHT) on 10/13/24 at 18:47. Electronically submitted by Juanis Mhoan ([email or web address]). I personally scribed for TRAVIS JOHNSTON MD (DWIGHT) on 10/13/24 at 18:57. Electronically submitted by Juanis Mohan ([email or web address]). I personally scribed for TRAVIS JOHNSTON MD (DWIGHT) on 10/13/24 at 19:27. E lectronically submitted by Juanis Mohan ([email or web address]). I personally scribed for TRAVIS JOHNSTON MD (DWIGHT) on 10/13/24 at 19:32. El ectronically submitted by Juanis Mohan ([email or web address]). I personally scribed for TRAVIS JOHNSTON MD (DWIGHT) on 10/13/24 at 22:11. Clementina ctronically submitted by Juanis Mohan ([email or web address]). TRAVIS JOHNSTON MD Oct 13, 2024 18:41
--- NOTE | 2024-10-13 18:50 | ECG ---
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
[2024-10-13 19:05] LABS: Hemoglobin 12.2 g/dL (13.5-17.5)
[2024-10-13 19:06] LABS: Hematocrit 36.9 % (41.0-53.0); Mean Corpuscular Hemoglobin 25.9 pg (28.0-32.0); Mean Corpuscular Volume 78.5 fL (80.0-100.0); Platelet Count (auto) 266 10^3/uL (140-450); Red Cell Distribution Width 17.8 % (11.8-14.3)
[2024-10-13] MEDS: SODIUM CHLORIDE 0.9% 1,000 ML IV ONE ×3 (19:15→22:48)
[2024-10-13 19:24] LABS: Alanine Aminotransferase 82 U/L (7-40); Albumin 3.7 g/dL (3.2-4.8); Alkaline Phosphatase 116 U/L (46-116); Anion Gap 16 (5-15); Aspartate Aminotransferase 274 U/L (13-40); BUN/Creatinine Ratio 17.6 (10.0-20.0); Bilirubin, Total 1.2 mg/dL (0.2-1.0); Blood Urea Nitrogen 46 mg/dL (9-23); Calcium 9.3 mg/dL (8.7-10.4); Carbon Dioxide 24 mmol/L (20-31); Chloride 95 mmol/L (98-107); Glucose 279 mg/dL (74-106); Magnesium 2.2 mg/dL (1.6-2.6); Sodium 135 mmol/L (136-145)
[2024-10-13 19:25] LABS: Total Protein 6.9 g/dL (5.7-8.2)
[2024-10-13 19:26] LABS: Basophils % (manual) 0 (0.0-2.0); Blast Cells 0; Eosinophils % (manual) 0 (0-7); Myelocytes % 0; Promyelocytes % 0; Reactive Lymphocytes 0
[2024-10-13 19:28] LABS: INR 1.26 (0.9-1.15); Partial Thromboplastin Time 34.4 SEC (24.5-34.5); Prothrombin Time 13.1 sec (9.3-11.8)
[2024-10-13 19:30] VITALS: PULSE 94; RESP 29; O2SAT 93
[2024-10-13 19:43] LABS: Potassium 2.4 mmol/L (3.5-5.1)
[2024-10-13] MEDS: ONDANSETRON HCL 4 MG/2 ML VIAL IV ONE (19:58)
[2024-10-13] MEDS: HYDROmorphone HCL 2 MG/ML VL/or syr IV ONE (20:00)
[2024-10-13] MEDS: POTASSIUM CHL 20 Meq TABLET PO ONE (20:01)
[2024-10-13] MEDS: ASPirin 325 MG TAB PO ONE (20:01)
--- NOTE | 2024-10-13 20:03 | DVH ---
CLINICAL INDICATION: fall TECHNIQUE: 2 radiographic views of the left knee were obtained. Comparison: None FINDINGS/IMPRESSION: There is no evidence of acute fracture or dislocation. The visualized joint space is well maintained. The alignment is anatomical. There is no radiopaque foreign body.
--- NOTE | 2024-10-13 20:06 | DVH ---
CLINICAL INDICATION: fall TECHNIQUE: 2 radiographic views of the left foot were obtained. Comparison: XY R FOOT 3 VIEW XRAY on DOS: 07/18/24, XY R FOOT 3 VIEW XRAY on DOS: 08/30/23, XY R FOOT 3 VIEW XRAY on DOS: 07/31/23 FINDINGS/IMPRESSION: There is postsurgical changes of transmetatarsal amputation of the 1st toe with surgical clips within the adjacent soft tissues. There are bony exostosis of the residual 1st metatarsal and medial 2nd me tatarsal. There appears to be stabilization of the distal phalanx of the 2nd toe on the middle phalanx. There is chronic fracture deformity of the dorsum of the distal midfoot. Small plantar calcaneal bony spur. Mild dorsal surface soft tissue edema. No evidence of acute traumatic fractures.
--- NOTE | 2024-10-13 20:06 | DVH ---
CHEST RADIOGRAPH Indication:syncope Technique: Single frontal view of the chest was obtained Comparison: XY CHEST PORTABLE on DOS: 09/01/23, XY CHEST PORTABLE on DOS: 08/31/23, XY CHEST PORTABLE o n DOS: 08/31/23 FINDINGS: Lines and Tubes: None Lungs: No focal consolidation. Pleura: No effusion. No pneumothorax. Cardiomediastinal contours: Unremarkable Bones: No acute osseous abnormality. IMPRESSION: No acute cardiopulmonary disease.
[2024-10-13] MEDS: PIPERACILLIN-TAZOB 3.375GM 100 ML IV ONE (20:09)
[2024-10-13 20:19] LABS: Band Neutrophils % (manual) 30; Lymphocytes % (manual) 2 (10.0-50.0); Metamyelocytes % 1; Monocytes % (manual) 4 (0-12)
[2024-10-13 20:20] LABS: Platelet Estimate Adequate
[2024-10-13 20:31] LABS: Lactic Acid w/Reflex 4.5 mmol/L (0.4-2.0)
--- NOTE | 2024-10-13 20:48 | DVH ---
EXAM: CT CERVICAL WITHOUT CONTRAST INDICATION: fall EXAM DATE: 10/13/2024 08:11 PM COMPARISON: CT CHEST WITHOUT CONTRAST on DOS: 09/02/23, CT CT L FOOT WO CONTRAST on DOS: 08/30/23, CT C T R FOOT WO CONTRAST on DOS: 08/30/23 TECHNIQUE: Multiple axial CT images of the cervical spine were obtained using bone algorithm. Axial a nd coronal reformatting was done. Bone and soft tissue windows were reviewed. Radiation Dose Information: CT Dose: CTDI volume is 28.83 mGy. Dose-length product is 183.02 mGy*cm FINDINGS: The cervical alignment is intact. No acute cervical spine fracture is identified. The vertebral body heights are intact. No suspicious osseous lesions are identified. Multilevel moderate degenerative changes of the cervical spine There is no prevertebral soft tissue swelling. Mucous retention cysts within the right sphenoid and left maxillary sinuses. Near-complete opacifica tion of the right maxillary sinus. Mucoperiosteal thickening of the ethmoid air cells. The mastoids a re clear. Multiple teeth with dental caries. IMPRESSION: No evidence of acute cervical spine fracture or traumatic malalignment. All CT scans at this medical facility are performed using dose modulation techniques as appropriate t o a performed exam including the following: Automated exposure control was utilized; adjustment of th e MA and/or KV according to patient size; and use of iterative reconstruction technique.
--- NOTE | 2024-10-13 21:08 | DVH ---
CLINICAL HISTORY: syncope TECHNIQUE: Helical imaging carried out from skull base to vertex without intravenous contrast. This e xam was performed according to our departmental dose optimization program. Up-to-date CT equipment an d radiation dose reduction techniques are utilized as appropriate. WID: COMPARISON: None FINDINGS: Mild patchy low attenuation in the cerebral white matter consistent with nonspecific white matter dis ease. There is a chronic lacunar infarct in the right thalamus. The ventricles and subarachnoid spac es are normal in size and configuration. There is calcified plaque in the intracranial internal carot id and vertebral arteries There is no midline shift or mass effect. The george white matter interfaces are maintained. The basal cisterns are patent. There is no evidence of acute intracranial hemorrhage or extra-axial fluid lisandra ection. The mastoid air cells are well-aerated. There is a mucous retention cyst or polyp in the lef t sphenoid sinus. There is paranasal sinus opacification and mucosal thickening with near-complete op acification of the right maxillary sinus. IMPRESSION: 1. No acute intracranial abnormality. 2. Mild chronic microvascular ischemic change. 3. Chronic lacunar infarct in the right thalamus 4. Paranasal sinus mucosal thickening and near-complete opacification of the right maxillary sinus. Correlate clinically for acute sinusitis
[2024-10-13] MEDS: VANCOMYCIN 1GM/200ML PREMIX 200 ML IV ONE (21:09)
[2024-10-13] MEDS: POTASSIUM CHL 20MEQ/100ML 100 ML IV SCH (22:07)
[2024-10-13 22:46] LABS: Urine Amorphous Crystal FEW /hpf (None Seen); Urine Bacteria MOD /hpf (None Seen); Urine Blood 3+ /uL (Negative); Urine Clarity Turbid (Clear); Urine Color Yellow (Yellow); Urine Protein, UAD 3+ (Negative); Urine Urobilinogen Normal (Negative); Urine WBC 4 /hpf (0 - 3)
[2024-10-13] MEDS: HYDROcodone-ACET 10/325MG TAB PO ONE (22:48)
[2024-10-13] MEDS ORDERED: DEXTROSE (50%) 50ML SYRG IV PRN (23:30)
[2024-10-13] MEDS ORDERED: NITROGLYCERIN 0.4 MG SL TAB SL PRN (23:30)
[2024-10-13] MEDS ORDERED: VANCOMYCIN PER PHARMACY 0 MG IV SCH (23:30)
[2024-10-13] MEDS ORDERED: MORPHINE SULFATE INJ 2 MG/ml SYRG IV PRN (23:30)
[2024-10-13] MEDS: ENOXAPARIN SOD 100 MG/1 ML SYRINGE SC ONE (23:33)
[2024-10-13] MEDS: ACETAMINOPHEN IV 1000 MG/100ML (10MG/ML) IV ONE (23:33)
--- NOTE | 2024-10-13 23:34 | DVHHP2 ---
History of Present Illness Reason for Visit: Syncope History of Present Illness 69-year-old male presents for evaluation of syncopal episode. Patient reports having a not witnessed syncopal episode that lasted approximately 4 hours at home where he fell in the restroom. Denies head trauma. He does not recall any events prior or after a syncopal event. Denies chest pain or shortness for breath. Denies fever or chills. He reports having a wound to his left foot which is seen by home health once a week. Past Medical History Chronic kidney disease, hypertension, diabetes mellitus, dyslipidemia, CVA and thyroid Past Surgical History Left foot surgery Family History Cancer, heart disease and diabetes mellitus Smoke: No ALCOHOL: occassional Drugs: None Lives: with Family Review of Systems Review of Systems Review of systems are currently negative otherwise addressed in HPI. Allergies: Coded Allergies: Morphine (Verified Allergy, Unknown, 10/13/24) Medications Current Medications Medications Dose Ordered Sig/Olinda Route Start Time Stop Time Status Last Admin Dose Admin Potassium Chloride 100 ml @ 50 mls/hr Q2H IV 10/13/24 21:00 10/14/24 00:59 10/13/24 22:07 50 MLS/HR Exam Vital Signs Vital Signs Date Time Temp Pulse Resp B/P (MAP) Pulse Ox O2 Delivery O2 Flow Rate FiO2 10/13/24 23:00 102.8 95 38 119/66 (83) 95 102.8 10/13/24 19:30 Nasal Cannula* 4 36 Exam Gen: 69-year-old male in mild distress morbidly obese Skin: Warm, dry, normal color and texture, no rash. HEENT: Normocephalic atraumatic, mucous membranes moist and pink. Neck: Cervical and supraclavicular nodes normal without enlargement, trachea is midline, thyroid gland is normal without masses. Pulmonary: Clear to auscultation and percussion bilaterally. Cardiac: Regular rate and rhythm. No murmur Abdomen: Soft, nontender, nondistended, bowel sounds present all 4 quadrants, no guarding, no rigidity, no organomegaly. Extremities: No cyanosis, clubbing, left foot wound, right lower extremity cellulitis Neuro: Cranial nerves II through XII grossly intact, normal affect and speech, no focal motor deficits. Labs/Xrays ORDERING PHYSICIAN: TRAVIS JOHNSTON MD PROCEDURE(s): CXRP - CHEST PORTABLE REASON: syncope ORDER NUMBER(s): [id number], ACCESSION NUMBER(s): [id number] CHEST RADIOGRAPH Indication:syncope Technique: Single frontal view of the chest was obtained Comparison: XY CHEST PORTABLE on DOS: 09/01/23, XY CHEST PORTABLE on DOS: 08/31/23, XY CHEST PORTABLE on DOS: 08/31/23 FINDINGS: Lines and Tubes: None Lungs: No focal consolidation. Pleura: No effusion. No pneumothorax. Cardiomediastinal contours: Unremarkable Bones: No acute osseous abnormality. IMPRESSION: No acute cardiopulmonary disease. RING PHYSICIAN: TRAVIS JOHNSTON MD PROCEDURE(s): CXRP - CHEST PORTABLE REASON: syncope ORDER NUMBER(s): [id number], ACCESSION NUMBER(s): [id number] CHEST RADIOGRAPH Indication:syncope Technique: Single frontal view of the chest was obtained Comparison: XY CHEST PORTABLE on DOS: 09/01/23, XY CHEST PORTABLE on DOS: 08/31/23, XY CHEST PORTABLE on DOS: 08/31/23 FINDINGS: Lines and Tubes: None Lungs: No focal consolidation. Pleura: No effusion. No pneumothorax. Cardiomediastinal contours: Unremarkable Bones: No acute osseous abnormality. IMPRESSION: No acute cardiopulmonary disease. RING PHYSICIAN: TRAVIS JOHNSTON MD PROCEDURE(s): HWOCT - HEAD WITHOUT CONTRAST REASON: syncope ORDER NUMBER(s): [id number], ACCESSION NUMBER(s): [id number] CLINICAL HISTORY: syncope TECHNIQUE: Helical imaging carried out from skull base to vertex without i ntravenous contrast. This exam was performed according to our departmental dose optimization program. Up-to-date CT equipment and radiation dose reduction techniques are utilized as appropriate. WID: COMPARISON: None FINDINGS: Mild patchy low attenuation in the cerebral white matter consistent with nonspecific white matter disease. There is a chronic lacunar infarct in the r ight thalamus. The ventricles and subarachnoid spaces are normal in size and configuration. There is calcified plaque in the intracranial internal carotid and vertebral arteries There is no midline shift or mass effect. The george white matter interfaces are maintained. The basal cisterns are patent. There is no evidence of acute intracranial hemorrhage or extra-axial fluid collection. The mastoid air cells are well-aerated. There is a mucous retention cyst or polyp in the left sphenoid sinus. There is paranasal sinus opacification and mucosal thickening with near-complete opacification of the right maxillary sinus. IMPRESSION: 1. No acute intracranial abnormality. 2. Mild chronic microvascular ischemic change. 3. Chronic lacunar infarct in the right thalamus 4. Paranasal sinus mucosal thickening and near-complete opacification of the right maxillary sinus. Correlate clinically for acute sinusitis ATED BY: EDYTA OBRIEN MD DICTATED DATE/TIME: 10/13/242105 SIGNED BY: EDYTA OBRIEN MD ORDERING PHYSICIAN: TRAVIS JOHNSTON MD PROCEDURE(s): LFOT2 - L FOOT 2 VIEW XRAY REASON: fall ORDER NUMBER(s): [id number], ACCESSION NUMBER(s): [id number] CLINICAL INDICATION: fall TECHNIQUE: 2 radiographic views of the left foot were obtained. Comparison: XY R FOOT 3 VIEW XRAY on DOS: 07/18/24, XY R FOOT 3 VIEW XRAY on DOS: 08/30/23, XY R FOOT 3 VIEW XRAY on DOS: 07/31/23 FINDINGS/IMPRESSION: There is postsurgical changes of transmetatarsal amputation of the 1st toe with surgical clips within the adjacent soft tissues. There are bony exostosis of the residual 1st metatarsal and medial 2nd metatarsal. There appears to be stabilization of the distal phalanx of the 2nd toe on the middle phalanx. There is chronic fracture deformity of the dorsum of the distal midfoot. Small plantar calcaneal bony spur. Mild dorsal surface soft tissue edema. No evidence of acute traumatic fractures. Labs Test 10/13/24 22:55 10/13/24 22:12 10/13/24 22:00 10/13/24 21:44 Range/Units Blood Gas Specimen Type Arterial Blood Gas Sample Site Right radial Blood Gas Patient Temperature 37.0 Arterial Blood Date Drawn [id number] Arterial Blood pH 7.411 7.350-7.450 Arterial Blood Partial Pressure CO2 37.6 35.0-48.0 mmHg Arterial Blood Partial Pressure O2 70.3 L 83.0-108.0 mmHg Arterial Blood HCO3 23.4 21.0-28.0 mmol/L Arterial Blood Oxygen Saturation 93.7 L 94.0-98.0 % Arterial Blood Base Excess -1.0 -2.0-3.0 mmol/L Arterial Blood Oxyhemoglobin 92.3 L 94.0-98.0 % Arterial Blood Carboxyhemoglobin 1.2 0.5-1.5 % Arterial Blood Methemoglobin 0.3 0.0-1.5 % D[place]a Test Modified Blood Gas Total Hemoglobin 12.10 L 13.5-17.5 g/dL Blood Gas Liter Flow 5.00 Blood Gas Modality Nasal cannula FiO2 % 40.0 Troponin I High Sensitivity 324 *H </=54 ng/L Urine Color Yellow Yellow Urine Clarity Turbid H Clear Urine pH 6.0 5.0-9.0 Urine Specific [place] 1.020 1.001-1.035 Urine Protein 3+ H Negative Urine Ketones Negative Negative Urine Blood 3+ H Negative /uL Urine Nitrite Negative Negative Urine Bilirubin Negative Negative Urine Urobilinogen Normal Negative mg/dL Urine Leukocyte Esterase Negative Negative /uL Urine RBC 2 0 - 3 /hpf Urine WBC 4 0 - 3 /hpf Urine Squamous Epithelial Cells Few <5 /hpf Urine Amorphous Crystals Few None Seen /hpf Urine Bacteria Mod H None Seen /hpf Urine Glucose 4+ H Normal mg/dL Lactic Acid Level 3.2 *H 0.4-2.0 mmol/L Test 10/13/24 18:50 Range/Units White Blood Count 36.0 *H 4.4-10.8 10^3/uL Red Blood Count 4.70 4.5-5.90 10^6/uL Hemoglobin 12.2 L 13.5-17.5 g/dL Hematocrit 36.9 L 41.0-53.0 % Mean Corpuscular Volume 78.5 L 80.0-100.0 fL Mean Corpuscular Hemoglobin 25.9 L 28.0-32.0 pg Mean Corpuscular Hemoglobin Concent 33.0 32.0-36.0 g/dL Red Cell Distribution Width 17.8 H 11.8-14.3 % Platelet Count 266 140-450 10^3/uL Mean Platelet Volume 8.4 6.9-10.8 fL Neutrophils (%) (Auto) 37.0-80.0 % Lymphocytes (%) (Auto) 10.0-50.0 % Monocytes (%) (Auto) 0.0-12.0 % Basophils (%) (Auto) 0.0-2.0 % Neutrophils # (Auto) 1.6-8.6 10 ^3/uL Lymphocytes # (Auto) 0.4-5.4 10 ^3/uL Monocytes # (Auto) 0-1.3 10 ^3/uL Differential Total Cells Counted 100.0 100 Neutrophils % (Manual) 63 37.0-80.0 Band Neutrophils % (Manual) 30 Lymphocytes % (Manual) 2 L 10.0-50.0 Monocytes % (Manual) 4 0-12 Eosinophils % (Manual) 0 0-7 Basophils % (Manual) 0 0.0-2.0 Metamyelocytes % (manual) 1 Myelocytes % (Manual) 0 Promyelocytes % (Manual) 0 Blast Cells % (Manual) 0 Reactive Lymphocytes 0 Platelet Estimate Adequate Microcytosis Slight Prothrombin Time 13.1 H 9.3-11.8 sec Prothrombin Time INR 1.26 H 0.9-1.15 Activated Partial Thromboplast Time 34.4 24.5-34.5 SEC Sodium Level 135 L 136-145 mmol/L Potassium Level 2.4 *L 3.5-5.1 mmol/L Chloride Level 95 L 98-107 mmol/L Carbon Dioxide Level 24 20-31 mmol/L Anion Gap 16 H 5-15 Blood Urea Nitrogen 46 H 9-23 mg/dL Creatinine 2.61 H 0.700-1.30 mg/dL Glomerular Filtration Rate Calc 26 >90 mL/min BUN/Creatinine Ratio 17.6 10.0-20.0 Serum Glucose 279 H 74-106 mg/dL Calcium Level 9.3 8.7-10.4 mg/dL Magnesium Level 2.2 1.6-2.6 mg/dL Total Bilirubin 1.2 H 0.2-1.0 mg/dL Aspartate Amino Transferase (AST) 274 H 13-40 U/L Alanine Aminotransferase (ALT) 82 H 7-40 U/L Alkaline Phosphatase 116 46-116 U/L B-Type Natriuretic Peptide 379.72 0-100 pg/mL Total Protein 6.9 5.7-8.2 g/dL Albumin 3.7 3.2-4.8 g/dL Assessment/Plan Assessment/Plan Assessment Sepsis Syncope Elevated troponin rule out NSTEMI Left foot wound rule out osteomyelitis Morbid obesity Acute kidney injury Diabetes mellitus Plan Admit the patient to telemetry to the hospitalist Cardiology consult Podiatry consultation Zosyn/vancomycin Continue treatment per orders. Plan discussed with: Patient My Orders Orders - MIKIAVA AGACNP Procedure Category Date Status Time Zosyn Extended PHA 10/14/24 Transmitted Infusion 06:00 Vancomycin Per PHA 10/13/24 Transmitted Pharmacy 23:30 Consistent DIET 10/14/24 Transmitted Carb(Ccho)Diabetes Breakfast *Podiatry Consult CONS 10/13/24 Verified Fanous 23:21 Aspirin Tablet PHA 10/14/24 Verified 10:00 Atorvastatin (Lipitor) PHA 10/14/24 Verified 22:00 Wound Culture W/ Gs [place] 10/13/24 Transmitted 23:21 Amlodipine Tablet PHA 10/14/24 Verified (Norvasc Tablet) 10:00 * Cardiology Consult CONS 10/13/24 Verified 23:21 Glucose Blood PHA 10/14/24 Transmitted (Accu-Chek Comfort 00:00 Mild Sliding Scale PHA 10/14/24 Transmitted Npo - Q6hr 00:00 Dextrose 50% Syringe PHA 10/13/24 Transmitted 23:30 Admit ADMIT 10/13/24 Transmitted 23:21 Hydrocodone-Acet PHA 10/13/24 Transmitted 5/325mg Tab ([place] 23:30 Ondansetron Hcl PHA 10/13/24 Transmitted (Zofran) 23:30 Complete Blood Count LAB 10/14/24 Verified 04:00 Comprehensive LAB 10/14/24 Verified Metabolic Panel 04:00 Cardiac DIET 10/14/24 Transmitted Diet-2gna,Lofat,Lochol Breakfast Condition: Fair [place] 10/13/24 In Process 23:21 Acetaminophen Tablet PHA 10/13/24 Transmitted (Tylenol Tablet) 23:30 Bedrest With Bathroom [place] 10/13/24 In Process Privileg 23:21 Nitroglycerin PHA 10/13/24 Transmitted Sublingual (Ntrostat 23:30 Morphine Sulfate PHA 10/13/24 Transmitted Injection 23:30 Stat Ekg For Chest [place] 10/13/24 In Process Pain 23:21 Notify Md Of Changes [place] 10/13/24 In Process From Base 23:21 [employer] For [facility] 10/13/24 In Process 24 Hours 23:21 Emergency Dysrhythmia [facility] 10/13/24 In Process Protocol 23:21 Rhythm Strips Once [facility] 10/13/24 In Process Every Shift 23:21 Oxygen By Nasal RT 10/13/24 Transmitted Cannula 23:21 D-Dimer LAB 10/13/24 Transmitted 23:21 Date of Service: Oct 13, 2024 Billing Provider: ROXANNE LIVINGSTON Common Visit Codes: [id number] INP/OBS CARE (HIGH) ROXANNE LIVINGSTON Oct 13, 2024 23:34
[2024-10-13] MEDS ORDERED: VANCOMYCIN 1GM/200ML PREMIX 200 ML IV ONE (23:45)
[2024-10-14] VITALS (14 sets, daily range): BP systolic 97–142; BP diastolic 51–72; PULSE 85–100; RESP 19–35; TEMP 97.5–101.4; O2SAT 91–96
[2024-10-14] MEDS: ACCU-CHEK COMFORT CURVE STRIP VI SCH (00:20)
[2024-10-14] MEDS: InsuLIN REG 1unit/0.01ml Soln (100units/ml) SC SCH (00:23)
--- NOTE | 2024-10-14 02:24 | DVH ---
INDICATION: r/o osteomyellitus COMPARISON: None TECHNIQUE: CT of the left foot was performed without contrast. Volume transverse images were obtained and reconstructed in multiple planes using bone and soft tissue algorithms. All CT scans at this medical facility are performed using dose modulation techniques as appropriate t o a performed exam including the following: Automated exposure control was utilized; adjustment of th e MA and/or KV according to patient size; and use of iterative reconstruction technique. FINDINGS: Normal metalization. Alignment is maintained. There is chronic mild deformity of the 2nd metatarsal h ead with subchondral lucency and mild degenerative narrowing of the 2nd MTP joint. Prior amputation o f the 1st digit at the level of the proximal metatarsal with chronic deformity of the remaining proxi mal 1st metatarsal. There is moderate degenerative change of the midfoot with subchondral lucencies a nd joint space narrowing. There is no acute fracture. No focal osteopenia or cortical destruction to suggest osteomyelitis. The muscle bundles within the left foot are intact. There is focal soft tissue thickening at the plantar medial aspect of the mid/forefoot at the level of the amputated proximal 1 st metatarsal. IMPRESSION: 1. Moderate focal soft tissue swelling in the medial plantar mid/ forefoot at the level of the amputa filipe proximal 1st metatarsal . This could be postoperative or phlegmon. No well-formed fluid collecti on at this time to suggest abscess. 2. Prior amputation of the 1st digit at the level of the proximal metatarsal. 3. No evidence of acute fracture or osteomyelitis. 4. Moderate degenerative changes of the midfoot with subchondral lucencies and joint space narrowing.
--- NOTE | 2024-10-14 02:42 | DVH ---
CLINICAL HISTORY: r/o dvt bilateral lower extremity swelling. TECHNIQUE: Color and duplex doppler imaging of the bilateral lower extremity veins was performed. Ves allen compression if possible was also performed. WID: COMPARISON: US RT LOWER DVT on DOS: 07/19/24, US RT LOWER DVT on DOS: 05/14/24, US BILAT LOWER DVT on D OS: 09/03/23 FINDINGS: Right inguinal lymph node measures 2.6 x 1.0 x 1.7 cm. Right Lower Extremity: Right common femoral vein: Normal compressibility and flow. Right femoral vein: Normal compressibility and flow. Right popliteal vein: Normal compressibility and flow. Proximal calf veins are normally compressible. Left Lower Extremity: Left common femoral vein: Normal compressibility and flow. Left femoral vein: Normal compressibility and flow. Left popliteal vein: Normal compressibility and flow. Proximal calf veins are normally compressible. IMPRESSION: NO SONOGRAPHIC EVIDENCE FOR DEEP VENOUS THROMBOSIS IN THE BILATERAL LOWER EXTREMITY VEINS.
[2024-10-14] MEDS: HYDROcodone-ACET 5/325MG TAB PO PRN (02:44)
[2024-10-14] MEDS: ACETAMINOPHEN 325 MG TAB PO PRN (05:10)
[2024-10-14] MEDS: PIPERACILLIN-TAZOB 3.375GM 100 ML IV SCH (05:55)
[2024-10-14] MEDS: traMADol HCL 50 MG TAB PO ONE (06:14)
[2024-10-14 07:22] LABS: Basophils # (auto) 0 10 ^3/uL (0-0.2); Basophils % (auto) 0.1 % (0.0-2.0); Eosinophils # (auto) 0 10 ^3/uL (0-0.8); Eosinophils % (auto) 0.1 % (0.0-7.0); Hematocrit 40.3 % (41.0-53.0); Hemoglobin 12.9 g/dL (13.5-17.5); Lymphocytes # (auto) 0.3 10 ^3/uL (0.4-5.4); Lymphocytes % (auto) 1.5 % (10.0-50.0); Mean Corpuscular Hemoglobin 25.8 pg (28.0-32.0); Mean Corpuscular Volume 80.6 fL (80.0-100.0); Monocytes # (auto) 0.6 10 ^3/uL (0-1.3); Monocytes % (auto) 3.1 % (0.0-12.0); Neutrophils # (auto) 19.1 10 ^3/uL (1.6-8.6); Neutrophils % (auto) 95.2 % (37.0-80.0); Platelet Count (auto) 217 10^3/uL (140-450); Red Cell Distribution Width 17.6 % (11.8-14.3); White Blood Cell 20.1 10^3/uL (4.4-10.8)
[2024-10-14 07:29] LABS: Alanine Aminotransferase 145 U/L (7-40); Alkaline Phosphatase 125 U/L (46-116); Anion Gap 15 (5-15); Aspartate Aminotransferase 510 U/L (13-40); BUN/Creatinine Ratio 13.7 (10.0-20.0); Blood Urea Nitrogen 46 mg/dL (9-23); Calcium 8.9 mg/dL (8.7-10.4); Carbon Dioxide 21 mmol/L (20-31); Chloride 99 mmol/L (98-107); Potassium 3.2 mmol/L (3.5-5.1); Sodium 135 mmol/L (136-145)
[2024-10-14 07:30] LABS: Total Protein 7.7 g/dL (5.7-8.2)
[2024-10-14 07:35] LABS: Glucose 165 mg/dL (74-106)
[2024-10-14] MEDS: HYDROmorphone HCL 2 MG/ML VL/or syr IV PRN (10:48)
[2024-10-14] MEDS: amLODIPine BESYLATE 5 MG TAB PO SCH (10:49)
[2024-10-14] MEDS: ASPirin 81 mg TAB PO SCH (10:49)
--- NOTE | 2024-10-14 11:10 | DVH ---
INDICATION: Pain. TECHNIQUE: Multiple real-time sonographic images of the abdomen were obtained. COMPARISON: None FINDINGS: The liver is heterogeneous in echogenicity. The liver measures 21cm. No intrahepatic bilia ry ductal dilatation is noted. The gallbladder wall measures 0.2 cm and is unremarkable. No gallstones or sludge is seen. The com mon duct measures 0.5 cm and is unremarkable. No pericholecystic fluid is noted. The right kidney measures 13cm. No hydronephrosis. The left kidney measures 12cm. No hydronephrosis . The spleen measures 14cm, within normal limits. The echogenicity is within normal limits. The pancreas is not well visualized due to obscuration from bowel gas. The visualized portions of the IVC and aorta are grossly unremarkable. IMPRESSION: Hepatic steatosis / hepatomegaly. 3 cm hepatic cyst.
[2024-10-14 11:44] LABS: Hepatitis B Surface Antigen Negative (Negative)
[2024-10-14 12:05] LABS: Hepatitis A Ab IgM Negative; Magnesium 2.1 mg/dL (1.6-2.6)
[2024-10-14 12:06] LABS: Hepatitis B Core IgM Negative; Hepatitis C Antibody Negative (Negative); Phosphorus 4.3 mg/dL (2.4-5.1)
--- NOTE | 2024-10-14 12:15 | DVHPN2 ---
Reviewed: Care Plan, H&P, Labs, Medications, Previous Orders, Radiology Changes from previous H/P or p: No Changes Objective Vitals Vital Signs Date Time Temp Pulse Resp B/P (MAP) Pulse Ox O2 Delivery O2 Flow Rate FiO2 10/14/24 10:49 125/63 10/14/24 10:48 95 34 10/14/24 09:20 91 Nasal BiPAP Mask 45 10/14/24 07:45 6 10/14/24 07:00 98.7 98.7 Intake/Output Intake and Output 10/14/24 07:00 Intake Total 3525 ml Balance 3525 ml Intake IV Total 3525 ml Medications Current Medications Medications Dose Ordered Sig/Olinda Route Start Time Stop Time Status Last Admin Dose Admin Piperacillin Sod/ Tazobactam Sod 100 ml @ 25 mls/hr Q8HR IV 10/14/24 06:00 10/14/24 05:55 25 MLS/HR Vancomycin HCl 0 ml @ 0 mls/hr UD IV 10/13/24 23:30 Aspirin 162 mg DAILY PO 10/14/24 10:00 10/14/24 10:49 162 MG Atorvastatin Calcium 40 mg HS PO 10/14/24 22:00 Amlodipine Besylate 5 mg DAILY PO 10/14/24 10:00 10/14/24 10:49 5 MG Diagnostic Test (Pha) 1 strip Q6HR 10/14/24 00:00 10/14/24 11:32 1 STRIP Insulin Human Regular Q6HR SC 10/14/24 00:00 10/14/24 11:31 6 UNITS Dextrose 50 ml UD PRN IV 10/13/24 23:30 Acetaminophen/ Hydrocodone Bitart 1 tab Q4HP PRN PO 10/13/24 23:30 10/14/24 02:44 1 TAB Ondansetron HCl 4 mg Q4HP PRN IV 10/13/24 23:30 Acetaminophen 650 mg Q6HP PRN PO 10/13/24 23:30 10/14/24 05:10 650 MG Nitroglycerin 0.4 mg Q5MINP PRN SL 10/13/24 23:30 Morphine Sulfate 2 mg Q30M PRN IV 10/13/24 23:30 Hold Hydromorphone HCl 0.25 mg Q4HPRN PRN IV 10/14/24 10:30 10/14/24 10:48 0.25 MG Laboratory Results Laboratory Tests 10/14/24 05:29 Chemistry Test 10/13/24 18:50 10/14/24 05:29 Albumin 3.7 g/dL (3.2-4.8) 4.0 g/dL (3.2-4.8) Calcium Level 9.3 mg/dL (8.7-10.4) 8.9 mg/dL (8.7-10.4) Magnesium Level 2.2 mg/dL (1.6-2.6) 2.1 mg/dL (1.6-2.6) Total Protein 6.9 g/dL (5.7-8.2) 7.7 g/dL (5.7-8.2) Phosphorus Level 4.3 mg/dL (2.4-5.1) Coagulation Test 10/13/24 18:50 10/13/24 22:12 Prothrombin Time 13.1 sec (9.3-11.8) H Prothrombin Time INR 1.26 (0.9-1.15) H Activated Partial Thromboplast Time 34.4 SEC (24.5-34.5) D-Dimer, Quantitative 5.50 mg/L FEU (0.0-0.49) H Lipid panel Test 10/14/24 05:29 Cholesterol Level 102 mg/dL (< 200) HDL Cholesterol 36 mg/dL (40-59) L Triglycerides Level 158 mg/dL (< 150) H Cardiac Markers Test 10/13/24 18:50 B-Type Natriuretic Peptide 379.72 pg/mL (0-100) LFT Test 10/13/24 18:50 10/14/24 05:29 Alanine Aminotransferase (ALT) 82 U/L (7-40) H 145 U/L (7-40) H Alkaline Phosphatase 116 U/L (46-116) 125 U/L (46-116) H Aspartate Amino Transferase (AST) 274 U/L (13-40) H 510 U/L (13-40) H Total Bilirubin 1.2 mg/dL (0.2-1.0) H 1.0 mg/dL (0.2-1.0) HgA1c, TSH Test 10/14/24 05:29 Hemoglobin A1c 9.2 % A1C (<5.7) H Thyroid Stimulating Hormone (TSH) 0.46 uIU/mL (0.55-4.78) L Urinalysis Test 10/13/24 22:00 Urine Color Yellow (Yellow) Urine Clarity Turbid (Clear) H Urine pH 6.0 (5.0-9.0) Urine Specific [place] 1.020 (1.001-1.035) Urine Protein 3+ (Negative) H Urine Ketones Negative (Negative) Urine Blood 3+ /uL (Negative) H Urine Nitrite Negative (Negative) Urine Bilirubin Negative (Negative) Urine Urobilinogen Normal mg/dL (Negative) Urine Leukocyte Esterase Negative /uL (Negative) Urine RBC 2 /hpf (0 - 3) Urine WBC 4 /hpf (0 - 3) Urine Squamous Epithelial Cells Few /hpf (<5) Urine Amorphous Crystals Few /hpf (None Seen) Urine Bacteria Mod /hpf (None Seen) H Urine Glucose 4+ mg/dL (Normal) H Blood Gas Results Test 10/13/24 22:55 Arterial Blood pH 7.411 (7.350-7.450) FiO2 % 40.0 Labs and/or images reviewed: Labs reviewed by me, Image(s) reviewed by me Assessment/Plan Assessment/Plan Septic shock with the elevated white count altered mental status: Blood cultures urine cultures vancomycin Zosyn Syncope possibly secondary to sepsis: CT head negative, chest x-ray negative, C- spine CT negative, echocardiogram pending carotid ultrasound pending, Neurology consult placed cardiology consult pending Elevated D-dimer 5.50: DVT ruled out , V/Q scan ordered Left foot infection chronic for which he is on antibiotics by home health: Consult for Dr. 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 Left foot CT shows no osteomyelitis Left knee x-ray negative Hepatomegaly Hypertension Uncontrolled diabetes: Insulin sliding scale Hypercholesterolemia Hypothyroidism History of CVA History of coronary artery disease Moderate malnutrition Time spent 70 minutes Advanced care planning 20 minutes Condition guarded Plan discussed with: Patient My Orders Orders - ROWENA MEREDITH MD Procedure Category Date Status Time Covid19 Antigen Aruna LAB 10/14/24 Logged Rapid Influenza A&B LAB 10/14/24 Logged 12:03 Carotid Duplx W Color US 10/14/24 Logged DOP 12:06 *Podiatry Consult CONS 10/14/24 Transmitted Fanous 12:08 Nm Vq Scan NM 10/14/24 Logged 12:09 * Neurology Consult CONS 10/14/24 Transmitted 12:09 Date of Service: Oct 14, 2024 Billing Provider: ROWENA MEREDITH MD Common Visit Codes: [id number] CARE 30-74 MIN ROWENA MEREDITH MD Oct 14, 2024 12:15
[2024-10-14] MEDS: VANCOMYCIN 500 MG in D5W 5% 100 ML IV ONE (12:17)
[2024-10-14 12:19] LABS: Amphetamine Screen, Urine Neg (NEGATIVE); Barbiturate Scree,Urine Neg (NEGATIVE); Benzodiazephine Screen, Urine Neg (NEGATIVE); Cocaine Screen, Urine Neg (NEGATIVE); Opiate Scree,Urine Neg (NEGATIVE); Phencyclidine Screen, Urine Neg (NEGATIVE)
[2024-10-14 12:20] LABS: Cannabinoid Screen, Urine Neg (NEGATIVE)
--- NOTE | 2024-10-14 12:41 | DVHINCON2 ---
Date Seen: Oct 14, 2024 Referring Physician Tobias Schwab NP Reason for Consultation Elevated troponin History of Present Illness Rustam Escoto is a 69-year-old male patient who presents to the ED with chief complaint of mechanical fall with loss of consciousness which lasted approximately 4 hours, patient says after episode he presented altered mental status. Patient has amnesia lupe-event of what he was doing in the bathroom. Patient also reports presenting left lower limb pain, immobility of left lower limb and dyspnea after fall associated with dry cough. Emergency department patient completed 12 lead EKG which showed sinus tachycardia with multiple PACs, bad progression of precordial R's, troponin elevated but with no significant delta. Denies palpitation, chest pain, dyspnea previous to episode, nausea, vomiting, diarrhea, fever, chills, constipation, bleeding and other motor or sensory deficits. 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 Surgical history: Amputation of left hallux in 2021 Family history: Noncontributory Social history: Lives in [place] with . Denies tobacco, alcohol and other drug abuse. 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 Allergies: Denies (per EMR morphine) Home medication: Does not recall (per EMR amlodipine 10 mg p.o. daily, aspirin 81 mg p.o. daily, atorvastatin 40 mg p.o. daily, glipizide 10 mg p.o. b.i.d., hydrochlorothiazide 25 mg p.o. daily, insulin detemir 20 units, lisinopril 40 mg p.o. daily, metformin 500 mg p.o. b.i.d., oxycodone, polyethylene glycol, pregabalin 50 mg p.o. t.i.d., sitagliptin 100 mg p.o. daily, triazolam) Patient seen and examined at bedside. Complains of intense lower limb pain, optimize medical therapy. Past Medical History Per HPI Past Surgical History Per HPI Family History: Alzheimer's disease G8 MOTHER, Cardiovascular disease G8 MOTHER, Colon cancer G8 FATHER, G8 SISTER Congenital anomaly Diabetes mellitus G8 MOTHER, FH: dementia G8 MOTHER, Family history: Diabetes mellitus G8 MOTHER, G8 BROTHER Hypertension G8 MOTHER, Family History Per HPI Social History Per HPI Allergies: Coded Allergies: Morphine (Verified Allergy, Unknown, 10/13/24) Home Meds Active Scripts Sulfamethoxazole W/Trimethopri (Bactrim Ds Tablet) 1 Tab Tb, 1 TAB PO BID for 7 Days, #14 TAB Prov:LUIS NAIR [employer]ING [employer] 07/22/24 Doxycycline Monohydrate (Doxycycline Monohydrate) 100 Mg Cap, 1 CAP PO BID, #20 CAP Prov:MELISSA READ MD 05/18/24 Hydrochlorothiazide (Hydrochlorothiazide) 25 Mg Tab, 25 MG PO DAILY for 30 Days, #30 MG 5 Refills Prov:MELISSA READ MD 05/18/24 Polyethylene Glycol 3350 (Miralax) 17 Gm Pow, 17 GM PO BID for 30 Days, #60 POW Prov:LUDAMANDY RESIDENT 08/11/23 Insulin Detemir (Levemir) Inj, 20 UNITS SC BID for 30 Days, #60 INJ Prov:[facility] RESIDENT 08/11/23 Reported Medications Pregabalin (Pregabalin) 50 Mg Cap, 1 CAP PO TID 07/21/24 Oxycodone W/ Acetaminophen (Percocet 5/325MG) 1 Tab Tb, 1 TAB PO Q6HPRN PRN for MODERATE PAIN (4-6 PAIN SCALE), #90 TAB 03/04/23 Pregabalin (Lyrica) 50 Mg Cap, 1 CAP PO TID, #90 CAP 03/04/23 Amlodipine Besylate (NORVASC TABLET) 5 Mg Tb, 10 MG PO DAILY, TAB 03/04/23 Triazolam (Halcion) 0.25 Mg Tab, 2 TAB PO QPM, #60 TAB 05/01/18 Sitagliptin Phosphate (Januvia) 50 Mg Tab, 100 MG PO DAILY, #30 TAB 5 Refills 05/01/18 Glipizide (Glipizide) 10 Mg Tab, 10 MG PO BID for 30 Days, MG 05/01/18 Atorvastatin Calcium (ATORVASTATIN CALCIUM) 40 Mg Tab, 1 TAB PO DAILY, #30 TAB 5 Refills 05/01/18 Aspirin (Aspir-Low) 81 Mg Tab, 81 MG PO DAILY for 30 Days, MG 05/01/18 Lisinopril (Lisinopril) 40 Mg Tab, 40 MG PO DAILY for 30 Days, MG 03/11/18 Metformin Hydrochloride (Metformin Hcl) 500 Mg Tab, 500 MG PO BID for 30 Days, MG 03/20/17 Current Medications Current Medications Medications (Trade) Dose Ordered Sig/Olinda Route PRN Reason Start Time Stop Time Status Last Admin Potassium Chloride 100 ml @ 50 mls/hr Q2H IV 10/13/24 21:00 10/14/24 00:59 DC 10/14/24 00:04 Piperacillin Sod/ Tazobactam Sod 100 ml @ 25 mls/hr Q8HR IV 10/14/24 06:00 10/14/24 05:55 Vancomycin HCl 0 ml @ 0 mls/hr UD IV 10/13/24 23:30 Aspirin 162 mg DAILY PO 10/14/24 10:00 10/14/24 10:49 Atorvastatin Calcium (Lipitor) 40 mg HS PO 10/14/24 22:00 Amlodipine Besylate (Norvasc Tablet) 5 mg DAILY PO 10/14/24 10:00 10/14/24 10:49 Diagnostic Test (Pha) (Accu-Chek Comfort Curve T) 1 strip Q6HR 10/14/24 00:00 10/14/24 11:32 Insulin Human Regular (InsuLIN R) Q6HR SC 10/14/24 00:00 10/14/24 11:31 Dextrose 50 ml UD PRN IV Blood Sugar LESS THAN 60 10/13/24 23:30 Acetaminophen/ Hydrocodone Bitart ([place] 5/325MG Tab) 1 tab Q4HP PRN PO MODERATE PAIN (4-6 PAIN SCALE) 10/13/24 23:30 10/14/24 02:44 Ondansetron HCl (Zofran) 4 mg Q4HP PRN IV NAUSEA / VOMITING 10/13/24 23:30 Acetaminophen (Tylenol Tablet) 650 mg Q6HP PRN PO PAIN SCALE 1-3 OR TEMP>100.4 10/13/24 23:30 10/14/24 05:10 Nitroglycerin (Ntrostat Sublingual) 0.4 mg Q5MINP PRN SL FOR CHEST PAIN 10/13/24 23:30 Morphine Sulfate 2 mg Q30M PRN IV FOR CHEST PAIN 10/13/24 23:30 Hold Hydromorphone HCl (Dilaudid Injection) 0.25 mg Q4HPRN PRN IV SEVERE PAIN (7-10 PAIN SCALE) 10/14/24 10:30 10/14/24 10:48 Review of Systems Per HPI Vital Signs Vital Signs Date Time Temp Pulse Resp B/P (MAP) Pulse Ox O2 Delivery O2 Flow Rate FiO2 10/14/24 10:49 125/63 10/14/24 10:48 95 34 10/14/24 09:20 91 Nasal BiPAP Mask 45 10/14/24 07:45 6 10/14/24 07:00 98.7 98.7 Physical Exam Patient lying in bed, in no acute distress General: Lucid, afebrile, mucosae are moist Cardiovascular: Normal S1 and S2. No murmurs, gallops or rubs Respiratory: Regular ventilation mechanics. Clear lung sounds on auscultation. On nasal CPAP machine Abdomen: Soft, nontender, no organomegaly, normal bowel sounds MSK/skin: Mobilizes 4 limbs. Skin is dry and warm. Bilateral Charcot foot deformity, surgical site of left hallux amputation with no erythema. Patient has excruciating pain in left thigh, could not mobilize leg. Neurological: Oriented in 3 spheres. No motor no sensitive deficits. Pupils are isocoric and reactive Labs/Diagnostic Data Labs Test 10/14/24 10:43 10/14/24 05:48 10/14/24 05:29 10/13/24 22:55 Range/Units Lactic Acid Level 1.8 0.4-2.0 mmol/L Ammonia 17 11-32 umol/L POC Glucose 188 H 70-106 mg/dl White Blood Count 20.1 #H 4.4-10.8 10^3/uL Red Blood Count 5.00 4.5-5.90 10^6/uL Hemoglobin 12.9 L 13.5-17.5 g/dL Hematocrit 40.3 L 41.0-53.0 % Mean Corpuscular Volume 80.6 80.0-100.0 fL Mean Corpuscular Hemoglobin 25.8 L 28.0-32.0 pg Mean Corpuscular Hemoglobin Concent 32.0 32.0-36.0 g/dL Red Cell Distribution Width 17.6 H 11.8-14.3 % Platelet Count 217 140-450 10^3/uL Mean Platelet Volume 8.7 6.9-10.8 fL Neutrophils (%) (Auto) 95.2 H 37.0-80.0 % Lymphocytes (%) (Auto) 1.5 L 10.0-50.0 % Monocytes (%) (Auto) 3.1 0.0-12.0 % Eosinophils (%) (Auto) 0.1 0.0-7.0 % Basophils (%) (Auto) 0.1 0.0-2.0 % Neutrophils # (Auto) 19.1 H 1.6-8.6 10 ^3/uL Lymphocytes # (Auto) 0.3 L 0.4-5.4 10 ^3/uL Monocytes # (Auto) 0.6 0-1.3 10 ^3/uL Eosinophils # (Auto) 0 0-0.8 10 ^3/uL Basophils # (Auto) 0 0-0.2 10 ^3/uL Nucleated Red Blood Cells 0.0 % Sodium Level 135 L 136-145 mmol/L Potassium Level 3.2 L 3.5-5.1 mmol/L Chloride Level 99 98-107 mmol/L Carbon Dioxide Level 21 20-31 mmol/L Anion Gap 15 5-15 Blood Urea Nitrogen 46 H 9-23 mg/dL Creatinine 3.36 H 0.700-1.30 mg/dL Glomerular Filtration Rate Calc 19 >90 mL/min BUN/Creatinine Ratio 13.7 10.0-20.0 Serum Glucose 165 #H 74-106 mg/dL Hemoglobin A1c 9.2 H <5.7 % A1C Calcium Level 8.9 8.7-10.4 mg/dL Phosphorus Level 4.3 2.4-5.1 mg/dL Magnesium Level 2.1 1.6-2.6 mg/dL Total Bilirubin 1.0 0.2-1.0 mg/dL Aspartate Amino Transferase (AST) 510 H 13-40 U/L Alanine Aminotransferase (ALT) 145 H 7-40 U/L Alkaline Phosphatase 125 H 46-116 U/L Total Protein 7.7 5.7-8.2 g/dL Albumin 4.0 3.2-4.8 g/dL Triglycerides Level 158 H < 150 mg/dL Cholesterol Level 102 < 200 mg/dL LDL Cholesterol 32 < 100 mg/dL HDL Cholesterol 36 L 40-59 mg/dL Vitamin B12 Level 446 211-911 pg/mL Vitamin D 25-Hydroxy 22.0 L 30.0-100 ng/mL Thyroid Stimulating Hormone (TSH) 0.46 L 0.55-4.78 uIU/mL Hepatitis A IgM Antibody Negative Hepatitis B Surface Antigen Negative Negative Hepatitis B Core IgM Antibody Negative Hepatitis C Antibody Negative Negative Blood Gas Specimen Type Arterial Blood Gas Sample Site Right radial Blood Gas Patient Temperature 37.0 Arterial Blood Date Drawn [id number] Arterial Blood pH 7.411 7.350-7.450 Arterial Blood Partial Pressure CO2 37.6 35.0-48.0 mmHg Arterial Blood Partial Pressure O2 70.3 L 83.0-108.0 mmHg Arterial Blood HCO3 23.4 21.0-28.0 mmol/L Arterial Blood Oxygen Saturation 93.7 L 94.0-98.0 % Arterial Blood Base Excess -1.0 -2.0-3.0 mmol/L Arterial Blood Oxyhemoglobin 92.3 L 94.0-98.0 % Arterial Blood Carboxyhemoglobin 1.2 0.5-1.5 % Arterial Blood Methemoglobin 0.3 0.0-1.5 % Donta Test Modified Blood Gas Total Hemoglobin 12.10 L 13.5-17.5 g/dL Blood Gas Liter Flow 5.00 Blood Gas Modality Nasal cannula FiO2 % 40.0 Test 10/13/24 22:12 10/13/24 22:00 10/13/24 18:50 Range/Units D-Dimer, Quantitative 5.50 H 0.0-0.49 mg/L FEU Troponin I High Sensitivity 324 *H </=54 ng/L Urine Color Yellow Yellow Urine Clarity Turbid H Clear Urine pH 6.0 5.0-9.0 Urine Specific [place] 1.020 1.001-1.035 Urine Protein 3+ H Negative Urine Ketones Negative Negative Urine Blood 3+ H Negative /uL Urine Nitrite Negative Negative Urine Bilirubin Negative Negative Urine Urobilinogen Normal Negative mg/dL Urine Leukocyte Esterase Negative Negative /uL Urine RBC 2 0 - 3 /hpf Urine WBC 4 0 - 3 /hpf Urine Squamous Epithelial Cells Few <5 /hpf Urine Amorphous Crystals Few None Seen /hpf Urine Bacteria Mod H None Seen /hpf Urine Glucose 4+ H Normal mg/dL Urine Opiates Screen Neg NEGATIVE Urine Fentanyl Screen Neg NEGATIVE Urine Barbiturates Screen Neg NEGATIVE Urine Phencyclidine Screen Neg NEGATIVE Urine Amphetamines Screen Neg NEGATIVE Urine Benzodiazepines Screen Neg NEGATIVE Urine Cocaine Screen Neg NEGATIVE Urine Cannabinoids Screen Neg NEGATIVE Differential Total Cells Counted 100.0 100 Neutrophils % (Manual) 63 37.0-80.0 Band Neutrophils % (Manual) 30 Lymphocytes % (Manual) 2 L 10.0-50.0 Monocytes % (Manual) 4 0-12 Eosinophils % (Manual) 0 0-7 Basophils % (Manual) 0 0.0-2.0 Metamyelocytes % (manual) 1 Myelocytes % (Manual) 0 Promyelocytes % (Manual) 0 Blast Cells % (Manual) 0 Reactive Lymphocytes 0 Platelet Estimate Adequate Microcytosis Slight Prothrombin Time 13.1 H 9.3-11.8 sec Prothrombin Time INR 1.26 H 0.9-1.15 Activated Partial Thromboplast Time 34.4 24.5-34.5 SEC B-Type Natriuretic Peptide 379.72 0-100 pg/mL Assessment NSTEMI probable type 2 Metabolic encephalopathy probably secondary to sepsis Sepsis probably secondary to pneumonia Acute respiratory failure Rule out osteomyelitis SILVESTRE hemodynamically mediated on CKD Hypokalemia Transaminitis Rule out lower limb fracture Hypertension Dyslipidemia Diabetes Morbid obesity Plan/Recommendation Elevated troponin probably secondary to sepsis. Loss of consciousness probably secondary to metabolic encephalopathy (history is not compatible with syncope) Ordered echocardiogram Ordered abdominal ultrasound and hepatitis panel Ordered left foot MRI and left lower limb x-rays to rule out fracture Head CT and spine CT with no acute intracranial bleeding or fractures and evidence of chronic CVA (has sinusitis) Discussed case with Dr. Esparza, patient and nurses: Awaiting results of echocardiogram. Suspect elevated troponin secondary to sepsis. IV antibiotics per hospitalist. Patient has poor prognosis Plan discussed with: Patient, Other (Nurses) Date of Service: Oct 14, 2024 Billing Provider: NIMESH ESPARZA MD Cardiology Common Codes: [id number] INP/OBS CARE (High), [id number] CARE 30-74 MIN BUTCH HAYWARD Oct 14, 2024 12:41
--- NOTE | 2024-10-14 12:42 | DVHPN2 ---
Date of Progress Note Date of Progress Note Date of Progress Note: 10/14/24 Date of Admission Date of Admission Date of Admission: Date of Admission: Oct 13, 2024 at 23:29 Family History Family History Family History: Alzheimer's disease G8 MOTHER, Cardiovascular disease G8 MOTHER, Colon cancer G8 FATHER, G8 SISTER Congenital anomaly Diabetes mellitus G8 MOTHER, FH: dementia G8 MOTHER, Family history: Diabetes mellitus G8 MOTHER, G8 BROTHER Hypertension G8 MOTHER, Allergies: Coded Allergies: Morphine (Verified Allergy, Unknown, 10/13/24) Home Meds Active Scripts Sulfamethoxazole W/Trimethopri (Bactrim Ds Tablet) 1 Tab Tb, 1 TAB PO BID for 7 Days, #14 TAB Prov:LUIS NAIR NP 07/22/24 Doxycycline Monohydrate (Doxycycline Monohydrate) 100 Mg Cap, 1 CAP PO BID, #20 CAP Prov:MELISSA READ MD 05/18/24 Hydrochlorothiazide (Hydrochlorothiazide) 25 Mg Tab, 25 MG PO DAILY for 30 Days, #30 MG 5 Refills Prov:MELISSA READ MD 05/18/24 Polyethylene Glycol 3350 (Miralax) 17 Gm Pow, 17 GM PO BID for 30 Days, #60 POW Prov:MANDY LARES RESIDENT 08/11/23 Insulin Detemir (Levemir) Inj, 20 UNITS SC BID for 30 Days, #60 INJ Prov:MANDY LARES RESIDENT 08/11/23 Reported Medications Pregabalin (Pregabalin) 50 Mg Cap, 1 CAP PO TID 07/21/24 Oxycodone W/ Acetaminophen (Percocet 5/325MG) 1 Tab Tb, 1 TAB PO Q6HPRN PRN for MODERATE PAIN (4-6 PAIN SCALE), #90 TAB 03/04/23 Pregabalin (Lyrica) 50 Mg Cap, 1 CAP PO TID, #90 CAP 03/04/23 Amlodipine Besylate (NORVASC TABLET) 5 Mg Tb, 10 MG PO DAILY, TAB 03/04/23 Triazolam (Halcion) 0.25 Mg Tab, 2 TAB PO QPM, #60 TAB 05/01/18 Sitagliptin Phosphate (Januvia) 50 Mg Tab, 100 MG PO DAILY, #30 TAB 5 Refills 05/01/18 Glipizide (Glipizide) 10 Mg Tab, 10 MG PO BID for 30 Days, MG 05/01/18 Atorvastatin Calcium (ATORVASTATIN CALCIUM) 40 Mg Tab, 1 TAB PO DAILY, #30 TAB 5 Refills 05/01/18 Aspirin (Aspir-Low) 81 Mg Tab, 81 MG PO DAILY for 30 Days, MG 05/01/18 Lisinopril (Lisinopril) 40 Mg Tab, 40 MG PO DAILY for 30 Days, MG 03/11/18 Metformin Hydrochloride (Metformin Hcl) 500 Mg Tab, 500 MG PO BID for 30 Days, MG 03/20/17 Current Medications Current Medications Medications (Trade) Dose Ordered Sig/Olinda Route PRN Reason Start Time Stop Time Status Last Admin Potassium Chloride 100 ml @ 50 mls/hr Q2H IV 10/13/24 21:00 10/14/24 00:59 DC 10/14/24 00:04 Piperacillin Sod/ Tazobactam Sod 100 ml @ 25 mls/hr Q8HR IV 10/14/24 06:00 10/14/24 05:55 Vancomycin HCl 0 ml @ 0 mls/hr UD IV 10/13/24 23:30 Aspirin 162 mg DAILY PO 10/14/24 10:00 10/14/24 10:49 Atorvastatin Calcium (Lipitor) 40 mg HS PO 10/14/24 22:00 Amlodipine Besylate (Norvasc Tablet) 5 mg DAILY PO 10/14/24 10:00 10/14/24 10:49 Diagnostic Test (Pha) (Accu-Chek Comfort Curve T) 1 strip Q6HR 10/14/24 00:00 10/14/24 11:32 Insulin Human Regular (InsuLIN R) Q6HR SC 10/14/24 00:00 10/14/24 11:31 Dextrose 50 ml UD PRN IV Blood Sugar LESS THAN 60 10/13/24 23:30 Acetaminophen/ Hydrocodone Bitart ([place] 5/325MG Tab) 1 tab Q4HP PRN PO MODERATE PAIN (4-6 PAIN SCALE) 10/13/24 23:30 10/14/24 02:44 Ondansetron HCl (Zofran) 4 mg Q4HP PRN IV NAUSEA / VOMITING 10/13/24 23:30 Acetaminophen (Tylenol Tablet) 650 mg Q6HP PRN PO PAIN SCALE 1-3 OR TEMP>100.4 10/13/24 23:30 10/14/24 12:36 Nitroglycerin (Ntrostat Sublingual) 0.4 mg Q5MINP PRN SL FOR CHEST PAIN 10/13/24 23:30 Morphine Sulfate 2 mg Q30M PRN IV FOR CHEST PAIN 10/13/24 23:30 Hold Hydromorphone HCl (Dilaudid Injection) 0.25 mg Q4HPRN PRN IV SEVERE PAIN (7-10 PAIN SCALE) 10/14/24 10:30 10/14/24 10:48 Physical Examination General Examination: Last Vital sign Vital Signs Date Time Temp Pulse Resp B/P (MAP) Pulse Ox O2 Delivery O2 Flow Rate FiO2 10/14/24 12:36 101.4 10/14/24 10:49 125/63 10/14/24 10:48 95 34 10/14/24 09:20 91 Nasal BiPAP Mask 45 10/14/24 07:45 6 General: General: No apparent distress, appears comfortable. Cooperative. Extremities: morbidly obese, onn CPAP bilateral feet, forefoot and midfoot ulcers, no gross puss, some necrosis deep to tendon/bone Skin: bilateral forefoot ulcers Neurological Examination: Neurological Examination: Mental Status: Cranial Nerves: Motor Examination: Reflexes: Sensory: Coordination: Gait: Labs: Labs: Laboratory Tests Test 10/13/24 18:50 10/13/24 19:50 10/13/24 21:44 10/13/24 22:00 Range/Units White Blood Count 36.0 *H 4.4-10.8 10^3/uL Red Blood Count 4.70 4.5-5.90 10^6/uL Hemoglobin 12.2 L 13.5-17.5 g/dL Hematocrit 36.9 L 41.0-53.0 % Mean Corpuscular Volume 78.5 L 80.0-100.0 fL Mean Corpuscular Hemoglobin 25.9 L 28.0-32.0 pg Mean Corpuscular Hemoglobin Concent 33.0 32.0-36.0 g/dL Red Cell Distribution Width 17.8 H 11.8-14.3 % Platelet Count 266 140-450 10^3/uL Mean Platelet Volume 8.4 6.9-10.8 fL Neutrophils (%) (Auto) 37.0-80.0 % Lymphocytes (%) (Auto) 10.0-50.0 % Monocytes (%) (Auto) 0.0-12.0 % Basophils (%) (Auto) 0.0-2.0 % Neutrophils # (Auto) 1.6-8.6 10 ^3/uL Lymphocytes # (Auto) 0.4-5.4 10 ^3/uL Monocytes # (Auto) 0-1.3 10 ^3/uL Differential Total Cells Counted 100.0 100 Neutrophils % (Manual) 63 37.0-80.0 Band Neutrophils % (Manual) 30 Lymphocytes % (Manual) 2 L 10.0-50.0 Monocytes % (Manual) 4 0-12 Eosinophils % (Manual) 0 0-7 Basophils % (Manual) 0 0.0-2.0 Metamyelocytes % (manual) 1 Myelocytes % (Manual) 0 Promyelocytes % (Manual) 0 Blast Cells % (Manual) 0 Reactive Lymphocytes 0 Platelet Estimate Adequate Microcytosis Slight Prothrombin Time 13.1 H 9.3-11.8 sec Prothrombin Time INR 1.26 H 0.9-1.15 Activated Partial Thromboplast Time 34.4 24.5-34.5 SEC Sodium Level 135 L 136-145 mmol/L Potassium Level 2.4 *L 3.5-5.1 mmol/L Chloride Level 95 L 98-107 mmol/L Carbon Dioxide Level 24 20-31 mmol/L Anion Gap 16 H 5-15 Blood Urea Nitrogen 46 H 9-23 mg/dL Creatinine 2.61 H 0.700-1.30 mg/dL Glomerular Filtration Rate Calc 26 >90 mL/min BUN/Creatinine Ratio 17.6 10.0-20.0 Serum Glucose 279 H 74-106 mg/dL Calcium Level 9.3 8.7-10.4 mg/dL Magnesium Level 2.2 1.6-2.6 mg/dL Total Bilirubin 1.2 H 0.2-1.0 mg/dL Aspartate Amino Transferase (AST) 274 H 13-40 U/L Alanine Aminotransferase (ALT) 82 H 7-40 U/L Alkaline Phosphatase 116 46-116 U/L Troponin I High Sensitivity 223 *H 259 *H </=54 ng/L B-Type Natriuretic Peptide 379.72 0-100 pg/mL Total Protein 6.9 5.7-8.2 g/dL Albumin 3.7 3.2-4.8 g/dL Lactic Acid Level 4.5 *H 3.2 *H 0.4-2.0 mmol/L Urine Color Yellow Yellow Urine Clarity Turbid H Clear Urine pH 6.0 5.0-9.0 Urine Specific [place] 1.020 1.001-1.035 Urine Protein 3+ H Negative Urine Ketones Negative Negative Urine Blood 3+ H Negative /uL Urine Nitrite Negative Negative Urine Bilirubin Negative Negative Urine Urobilinogen Normal Negative mg/dL Urine Leukocyte Esterase Negative Negative /uL Urine RBC 2 0 - 3 /hpf Urine WBC 4 0 - 3 /hpf Urine Squamous Epithelial Cells Few <5 /hpf Urine Amorphous Crystals Few None Seen /hpf Urine Bacteria Mod H None Seen /hpf Urine Glucose 4+ H Normal mg/dL Urine Opiates Screen Neg NEGATIVE Urine Fentanyl Screen Neg NEGATIVE Urine Barbiturates Screen Neg NEGATIVE Urine Phencyclidine Screen Neg NEGATIVE Urine Amphetamines Screen Neg NEGATIVE Urine Benzodiazepines Screen Neg NEGATIVE Urine Cocaine Screen Neg NEGATIVE Urine Cannabinoids Screen Neg NEGATIVE Test 10/13/24 22:12 10/13/24 22:55 10/14/24 05:29 10/14/24 05:48 Range/Units D-Dimer, Quantitative 5.50 H 0.0-0.49 mg/L FEU Troponin I High Sensitivity 324 *H </=54 ng/L Blood Gas Specimen Type Arterial Blood Gas Sample Site Right radial Blood Gas Patient Temperature 37.0 Arterial Blood Date Drawn [id number] Arterial Blood pH 7.411 7.350-7.450 Arterial Blood Partial Pressure CO2 37.6 35.0-48.0 mmHg Arterial Blood Partial Pressure O2 70.3 L 83.0-108.0 mmHg Arterial Blood HCO3 23.4 21.0-28.0 mmol/L Arterial Blood Oxygen Saturation 93.7 L 94.0-98.0 % Arterial Blood Base Excess -1.0 -2.0-3.0 mmol/L Arterial Blood Oxyhemoglobin 92.3 L 94.0-98.0 % Arterial Blood Carboxyhemoglobin 1.2 0.5-1.5 % Arterial Blood Methemoglobin 0.3 0.0-1.5 % Donta Test Modified Blood Gas Total Hemoglobin 12.10 L 13.5-17.5 g/dL Blood Gas Liter Flow 5.00 Blood Gas Modality Nasal cannula FiO2 % 40.0 White Blood Count 20.1 #H 4.4-10.8 10^3/uL Red Blood Count 5.00 4.5-5.90 10^6/uL Hemoglobin 12.9 L 13.5-17.5 g/dL Hematocrit 40.3 L 41.0-53.0 % Mean Corpuscular Volume 80.6 80.0-100.0 fL Mean Corpuscular Hemoglobin 25.8 L 28.0-32.0 pg Mean Corpuscular Hemoglobin Concent 32.0 32.0-36.0 g/dL Red Cell Distribution Width 17.6 H 11.8-14.3 % Platelet Count 217 140-450 10^3/uL Mean Platelet Volume 8.7 6.9-10.8 fL Neutrophils (%) (Auto) 95.2 H 37.0-80.0 % Lymphocytes (%) (Auto) 1.5 L 10.0-50.0 % Monocytes (%) (Auto) 3.1 0.0-12.0 % Eosinophils (%) (Auto) 0.1 0.0-7.0 % Basophils (%) (Auto) 0.1 0.0-2.0 % Neutrophils # (Auto) 19.1 H 1.6-8.6 10 ^3/uL Lymphocytes # (Auto) 0.3 L 0.4-5.4 10 ^3/uL Monocytes # (Auto) 0.6 0-1.3 10 ^3/uL Eosinophils # (Auto) 0 0-0.8 10 ^3/uL Basophils # (Auto) 0 0-0.2 10 ^3/uL Nucleated Red Blood Cells 0.0 % Sodium Level 135 L 136-145 mmol/L Potassium Level 3.2 L 3.5-5.1 mmol/L Chloride Level 99 98-107 mmol/L Carbon Dioxide Level 21 20-31 mmol/L Anion Gap 15 5-15 Blood Urea Nitrogen 46 H 9-23 mg/dL Creatinine 3.36 H 0.700-1.30 mg/dL Glomerular Filtration Rate Calc 19 >90 mL/min BUN/Creatinine Ratio 13.7 10.0-20.0 Serum Glucose 165 #H 74-106 mg/dL Hemoglobin A1c 9.2 H <5.7 % A1C Calcium Level 8.9 8.7-10.4 mg/dL Phosphorus Level 4.3 2.4-5.1 mg/dL Magnesium Level 2.1 1.6-2.6 mg/dL Total Bilirubin 1.0 0.2-1.0 mg/dL Aspartate Amino Transferase (AST) 510 H 13-40 U/L Alanine Aminotransferase (ALT) 145 H 7-40 U/L Alkaline Phosphatase 125 H 46-116 U/L Total Protein 7.7 5.7-8.2 g/dL Albumin 4.0 3.2-4.8 g/dL Triglycerides Level 158 H < 150 mg/dL Cholesterol Level 102 < 200 mg/dL LDL Cholesterol 32 < 100 mg/dL HDL Cholesterol 36 L 40-59 mg/dL Vitamin B12 Level 446 211-911 pg/mL Vitamin D 25-Hydroxy 22.0 L 30.0-100 ng/mL Thyroid Stimulating Hormone (TSH) 0.46 L 0.55-4.78 uIU/mL Hepatitis A IgM Antibody Negative Hepatitis B Surface Antigen Negative Negative Hepatitis B Core IgM Antibody Negative Hepatitis C Antibody Negative Negative POC Glucose 188 H 70-106 mg/dl Test 10/14/24 10:43 Range/Units Lactic Acid Level 1.8 0.4-2.0 mmol/L Ammonia 17 11-32 umol/L Assessment/Plan Assessment/Plan Assessment and Plan:Rustam Escoto is a 69 year old male admitted in DKA , with sepsis, consulted for bilateral feet diabetic ulcers' Pt admitted with high cardiac enzymes 1) recommend consult podiatry, and possible debridement and wound vacs if condition stabilizes Plan discussed with: Patient SURJIT HARDY MD Oct 14, 2024 12:42
--- NOTE | 2024-10-14 14:13 | DVH ---
CLINICAL INDICATION: Left lower limb pain after fall TECHNIQUE: XY L FEMUR XRAY, XY PELVIS AP, XY L KNEE 3V XRAY Comparison: XY L KNEE 2V XRAY on DOS: 10/13/24, XY L FOOT 2 VIEW XRAY on DOS: 10/13/24 FINDINGS/IMPRESSION: No definite displaced fracture. Limited study due to habitus. Consider CT examination.
--- NOTE | 2024-10-14 14:14 | DVH ---
CLINICAL INDICATION: Left lower limb pain after fall TECHNIQUE: XY L FEMUR XRAY Comparison: XY L KNEE 2V XRAY on DOS: 10/13/24, XY L FOOT 2 VIEW XRAY on DOS: 10/13/24 FINDINGS/IMPRESSION: No definite displaced fracture. Limited study due to habitus. Consider CT examination.
--- NOTE | 2024-10-14 14:26 | DVH ---
Carotid Duplex Date: 10/14/2024 01:58 PM Clinical History: Syncope Comparison: None Technique: Duplex Doppler evaluation of the extracranial carotid and vertebral arteries including color Doppler and spectral/pulsed waveform analysis was performed. Findings: RIGHT SIDE: The peak systolic velocities are 94 cm/s in the distal CCA and 95 cm/s in the proximal ICA.The ICA/CC A ratio is normal. The external carotid artery is patent with peak systolic velocity of 85 cm/s proximally. There is appropriate antegrade flow in the right vertebral artery. LEFT SIDE: The peak systolic velocities are 107 cm/s in the distal CCA and 88 cm/s in the proximal ICA.. The IC A/CCA ratio is less than 1. The external carotid artery is patent with peak systolic velocity of 128 cm/s proximally. There is appropriate antegrade flow in the left vertebral artery. IMPRESSION: 1. No hemodynamically significant stenosis noted in the right carotid system. 2. No hemodynamically significant stenosis noted in the left carotid system. 3. Reference: Radiology 2003; [id number] HS:Y
--- NOTE | 2024-10-14 15:48 | DVHINCON2 ---
Date of service: Oct 14, 2024 Referring Physician Hospitalist Reason for Consultation Acute kidney injury History of Present Illness 69-year-old morbidly obese male with past medical history of diabetes, hypertension, obstructive sleep apnea with BiPAP at night, severe peripheral vascular disease with poor circulation to the left lower extremity status post toe amputation in 2022 which patient per reports states that he has chronic poor healing and drainage. He presents to the hospital after loss of consciousness. He can not elaborate on the events leading to the loss of consciousness and does not remember precipitating events. Nephrology is consulted to elevated creati nine level. Based on previous hospital records patient's baseline renal function is normal. He has noted during this hospitalization to have a fever of 101.4 Past Medical History As above Past Surgical History Amputations Allergies: Coded Allergies: Morphine (Verified Allergy, Unknown, 10/13/24) Home Meds Active Scripts Sulfamethoxazole W/Trimethopri (Bactrim Ds Tablet) 1 Tab Tb, 1 TAB PO BID for 7 Days, #14 TAB Prov:LUIS NAIR NP 07/22/24 Doxycycline Monohydrate (Doxycycline Monohydrate) 100 Mg Cap, 1 CAP PO BID, #20 CAP Prov:MELISSA READ MD 05/18/24 Hydrochlorothiazide (Hydrochlorothiazide) 25 Mg Tab, 25 MG PO DAILY for 30 Days, #30 MG 5 Refills Prov:MELISSA READ MD 05/18/24 Polyethylene Glycol 3350 (Miralax) 17 Gm Pow, 17 GM PO BID for 30 Days, #60 POW Prov:MANDY LARES RESIDENT 08/11/23 Insulin Detemir (Levemir) Inj, 20 UNITS SC BID for 30 Days, #60 INJ Prov:MANDY LARES RESIDENT 08/11/23 Reported Medications Pregabalin (Pregabalin) 50 Mg Cap, 1 CAP PO TID 07/21/24 Oxycodone W/ Acetaminophen (Percocet 5/325MG) 1 Tab Tb, 1 TAB PO Q6HPRN PRN for MODERATE PAIN (4-6 PAIN SCALE), #90 TAB 03/04/23 Pregabalin (Lyrica) 50 Mg Cap, 1 CAP PO TID, #90 CAP 03/04/23 Amlodipine Besylate (NORVASC TABLET) 5 Mg Tb, 10 MG PO DAILY, TAB 03/04/23 Triazolam (Halcion) 0.25 Mg Tab, 2 TAB PO QPM, #60 TAB 05/01/18 Sitagliptin Phosphate (Januvia) 50 Mg Tab, 100 MG PO DAILY, #30 TAB 5 Refills 05/01/18 Glipizide (Glipizide) 10 Mg Tab, 10 MG PO BID for 30 Days, MG 05/01/18 Atorvastatin Calcium (ATORVASTATIN CALCIUM) 40 Mg Tab, 1 TAB PO DAILY, #30 TAB 5 Refills 05/01/18 Aspirin (Aspir-Low) 81 Mg Tab, 81 MG PO DAILY for 30 Days, MG 05/01/18 Lisinopril (Lisinopril) 40 Mg Tab, 40 MG PO DAILY for 30 Days, MG 03/11/18 Metformin Hydrochloride (Metformin Hcl) 500 Mg Tab, 500 MG PO BID for 30 Days, MG 03/20/17 Current Medications Current Medications Medications (Trade) Dose Ordered Sig/Olinda Route PRN Reason Start Time Stop Time Status Last Admin Potassium Chloride 100 ml @ 50 mls/hr Q2H IV 10/13/24 21:00 10/14/24 00:59 DC 10/14/24 00:04 Piperacillin Sod/ Tazobactam Sod 100 ml @ 25 mls/hr Q8HR IV 10/14/24 06:00 10/14/24 13:38 Vancomycin HCl 0 ml @ 0 mls/hr UD IV 10/13/24 23:30 Aspirin 162 mg DAILY PO 10/14/24 10:00 10/14/24 10:49 Atorvastatin Calcium (Lipitor) 40 mg HS PO 10/14/24 22:00 Amlodipine Besylate (Norvasc Tablet) 5 mg DAILY PO 10/14/24 10:00 10/14/24 10:49 Diagnostic Test (Pha) (Accu-Chek Comfort Curve T) 1 strip Q6HR 10/14/24 00:00 10/14/24 11:32 Insulin Human Regular (InsuLIN R) Q6HR SC 10/14/24 00:00 10/14/24 11:31 Dextrose 50 ml UD PRN IV Blood Sugar LESS THAN 60 10/13/24 23:30 Acetaminophen/ Hydrocodone Bitart ([place] 5/325MG Tab) 1 tab Q4HP PRN PO MODERATE PAIN (4-6 PAIN SCALE) 10/13/24 23:30 10/14/24 02:44 Ondansetron HCl (Zofran) 4 mg Q4HP PRN IV NAUSEA / VOMITING 10/13/24 23:30 Acetaminophen (Tylenol Tablet) 650 mg Q6HP PRN PO PAIN SCALE 1-3 OR TEMP>100.4 10/13/24 23:30 10/14/24 12:36 Nitroglycerin (Ntrostat Sublingual) 0.4 mg Q5MINP PRN SL FOR CHEST PAIN 10/13/24 23:30 Morphine Sulfate 2 mg Q30M PRN IV FOR CHEST PAIN 10/13/24 23:30 Hold Hydromorphone HCl (Dilaudid Injection) 0.25 mg Q4HPRN PRN IV SEVERE PAIN (7-10 PAIN SCALE) 10/14/24 10:30 10/14/24 10:48 Family History: Alzheimer's disease G8 MOTHER, Cardiovascular disease G8 MOTHER, Colon cancer G8 FATHER, G8 SISTER Congenital anomaly Diabetes mellitus G8 MOTHER, FH: dementia G8 MOTHER, Family history: Diabetes mellitus G8 MOTHER, G8 BROTHER Hypertension G8 MOTHER, Review of Systems Loss of consciousness H&P Exam Vital Signs/I&O Vital Sign Date Time Temp Pulse Resp B/P (MAP) Pulse Ox O2 Delivery O2 Flow Rate FiO2 10/14/24 14:00 93 Oxymizer 10.0 10/14/24 14:00 72 72 10/14/24 13:00 101.4 92 19 106/51 (69) 101.4 Intake and Output 10/13/24 10/14/24 19:00 07:00 Intake Total 3525 ml Balance 3525 ml Intake IV Total 3525 ml Physical Exam Morbidly obese white male Breathing with high-flow oxygen Mild distress with shortness of breath Abdomen is soft Large and distended Bilateral 1+ pitting edema Left toe amputations with wound wrapped in gauze Labs/Diagnostic Data Labs/Diagnostic Data Laboratory Tests Test 10/14/24 10:43 10/14/24 05:48 10/14/24 05:29 10/13/24 22:55 Range/Units Lactic Acid Level 1.8 0.4-2.0 mmol/L Ammonia 17 11-32 umol/L POC Glucose 188 H 70-106 mg/dl White Blood Count 20.1 #H 4.4-10.8 10^3/uL Red Blood Count 5.00 4.5-5.90 10^6/uL Hemoglobin 12.9 L 13.5-17.5 g/dL Hematocrit 40.3 L 41.0-53.0 % Mean Corpuscular Volume 80.6 80.0-100.0 fL Mean Corpuscular Hemoglobin 25.8 L 28.0-32.0 pg Mean Corpuscular Hemoglobin Concent 32.0 32.0-36.0 g/dL Red Cell Distribution Width 17.6 H 11.8-14.3 % Platelet Count 217 140-450 10^3/uL Mean Platelet Volume 8.7 6.9-10.8 fL Neutrophils (%) (Auto) 95.2 H 37.0-80.0 % Lymphocytes (%) (Auto) 1.5 L 10.0-50.0 % Monocytes (%) (Auto) 3.1 0.0-12.0 % Eosinophils (%) (Auto) 0.1 0.0-7.0 % Basophils (%) (Auto) 0.1 0.0-2.0 % Neutrophils # (Auto) 19.1 H 1.6-8.6 10 ^3/uL Lymphocytes # (Auto) 0.3 L 0.4-5.4 10 ^3/uL Monocytes # (Auto) 0.6 0-1.3 10 ^3/uL Eosinophils # (Auto) 0 0-0.8 10 ^3/uL Basophils # (Auto) 0 0-0.2 10 ^3/uL Nucleated Red Blood Cells 0.0 % Sodium Level 135 L 136-145 mmol/L Potassium Level 3.2 L 3.5-5.1 mmol/L Chloride Level 99 98-107 mmol/L Carbon Dioxide Level 21 20-31 mmol/L Anion Gap 15 5-15 Blood Urea Nitrogen 46 H 9-23 mg/dL Creatinine 3.36 H 0.700-1.30 mg/dL Glomerular Filtration Rate Calc 19 >90 mL/min BUN/Creatinine Ratio 13.7 10.0-20.0 Serum Glucose 165 #H 74-106 mg/dL Hemoglobin A1c 9.2 H <5.7 % A1C Calcium Level 8.9 8.7-10.4 mg/dL Phosphorus Level 4.3 2.4-5.1 mg/dL Magnesium Level 2.1 1.6-2.6 mg/dL Total Bilirubin 1.0 0.2-1.0 mg/dL Aspartate Amino Transferase (AST) 510 H 13-40 U/L Alanine Aminotransferase (ALT) 145 H 7-40 U/L Alkaline Phosphatase 125 H 46-116 U/L Total Protein 7.7 5.7-8.2 g/dL Albumin 4.0 3.2-4.8 g/dL Triglycerides Level 158 H < 150 mg/dL Cholesterol Level 102 < 200 mg/dL LDL Cholesterol 32 < 100 mg/dL HDL Cholesterol 36 L 40-59 mg/dL Vitamin B12 Level 446 211-911 pg/mL Vitamin D 25-Hydroxy 22.0 L 30.0-100 ng/mL Thyroid Stimulating Hormone (TSH) 0.46 L 0.55-4.78 uIU/mL Hepatitis A IgM Antibody Negative Hepatitis B Surface Antigen Negative Negative Hepatitis B Core IgM Antibody Negative Hepatitis C Antibody Negative Negative Blood Gas Specimen Type Arterial Blood Gas Sample Site Right radial Blood Gas Patient Temperature 37.0 Arterial Blood Date Drawn [id number] Arterial Blood pH 7.411 7.350-7.450 Arterial Blood Partial Pressure CO2 37.6 35.0-48.0 mmHg Arterial Blood Partial Pressure O2 70.3 L 83.0-108.0 mmHg Arterial Blood HCO3 23.4 21.0-28.0 mmol/L Arterial Blood Oxygen Saturation 93.7 L 94.0-98.0 % Arterial Blood Base Excess -1.0 -2.0-3.0 mmol/L Arterial Blood Oxyhemoglobin 92.3 L 94.0-98.0 % Arterial Blood Carboxyhemoglobin 1.2 0.5-1.5 % Arterial Blood Methemoglobin 0.3 0.0-1.5 % Donta Test Modified Blood Gas Total Hemoglobin 12.10 L 13.5-17.5 g/dL Blood Gas Liter Flow 5.00 Blood Gas Modality Nasal cannula FiO2 % 40.0 Test 10/13/24 22:12 10/13/24 22:00 10/13/24 21:44 10/13/24 19:50 Range/Units D-Dimer, Quantitative 5.50 H 0.0-0.49 mg/L FEU Troponin I High Sensitivity 324 *H 259 *H </=54 ng/L Urine Color Yellow Yellow Urine Clarity Turbid H Clear Urine pH 6.0 5.0-9.0 Urine Specific [place] 1.020 1.001-1.035 Urine Protein 3+ H Negative Urine Ketones Negative Negative Urine Blood 3+ H Negative /uL Urine Nitrite Negative Negative Urine Bilirubin Negative Negative Urine Urobilinogen Normal Negative mg/dL Urine Leukocyte Esterase Negative Negative /uL Urine RBC 2 0 - 3 /hpf Urine WBC 4 0 - 3 /hpf Urine Squamous Epithelial Cells Few <5 /hpf Urine Amorphous Crystals Few None Seen /hpf Urine Bacteria Mod H None Seen /hpf Urine Glucose 4+ H Normal mg/dL Urine Opiates Screen Neg NEGATIVE Urine Fentanyl Screen Neg NEGATIVE Urine Barbiturates Screen Neg NEGATIVE Urine Phencyclidine Screen Neg NEGATIVE Urine Amphetamines Screen Neg NEGATIVE Urine Benzodiazepines Screen Neg NEGATIVE Urine Cocaine Screen Neg NEGATIVE Urine Cannabinoids Screen Neg NEGATIVE Lactic Acid Level 3.2 *H 4.5 *H 0.4-2.0 mmol/L Test 10/13/24 18:50 Range/Units White Blood Count 36.0 *H 4.4-10.8 10^3/uL Red Blood Count 4.70 4.5-5.90 10^6/uL Hemoglobin 12.2 L 13.5-17.5 g/dL Hematocrit 36.9 L 41.0-53.0 % Mean Corpuscular Volume 78.5 L 80.0-100.0 fL Mean Corpuscular Hemoglobin 25.9 L 28.0-32.0 pg Mean Corpuscular Hemoglobin Concent 33.0 32.0-36.0 g/dL Red Cell Distribution Width 17.8 H 11.8-14.3 % Platelet Count 266 140-450 10^3/uL Mean Platelet Volume 8.4 6.9-10.8 fL Neutrophils (%) (Auto) 37.0-80.0 % Lymphocytes (%) (Auto) 10.0-50.0 % Monocytes (%) (Auto) 0.0-12.0 % Basophils (%) (Auto) 0.0-2.0 % Neutrophils # (Auto) 1.6-8.6 10 ^3/uL Lymphocytes # (Auto) 0.4-5.4 10 ^3/uL Monocytes # (Auto) 0-1.3 10 ^3/uL Differential Total Cells Counted 100.0 100 Neutrophils % (Manual) 63 37.0-80.0 Band Neutrophils % (Manual) 30 Lymphocytes % (Manual) 2 L 10.0-50.0 Monocytes % (Manual) 4 0-12 Eosinophils % (Manual) 0 0-7 Basophils % (Manual) 0 0.0-2.0 Metamyelocytes % (manual) 1 Myelocytes % (Manual) 0 Promyelocytes % (Manual) 0 Blast Cells % (Manual) 0 Reactive Lymphocytes 0 Platelet Estimate Adequate Microcytosis Slight Prothrombin Time 13.1 H 9.3-11.8 sec Prothrombin Time INR 1.26 H 0.9-1.15 Activated Partial Thromboplast Time 34.4 24.5-34.5 SEC Sodium Level 135 L 136-145 mmol/L Potassium Level 2.4 *L 3.5-5.1 mmol/L Chloride Level 95 L 98-107 mmol/L Carbon Dioxide Level 24 20-31 mmol/L Anion Gap 16 H 5-15 Blood Urea Nitrogen 46 H 9-23 mg/dL Creatinine 2.61 H 0.700-1.30 mg/dL Glomerular Filtration Rate Calc 26 >90 mL/min BUN/Creatinine Ratio 17.6 10.0-20.0 Serum Glucose 279 H 74-106 mg/dL Calcium Level 9.3 8.7-10.4 mg/dL Magnesium Level 2.2 1.6-2.6 mg/dL Total Bilirubin 1.2 H 0.2-1.0 mg/dL Aspartate Amino Transferase (AST) 274 H 13-40 U/L Alanine Aminotransferase (ALT) 82 H 7-40 U/L Alkaline Phosphatase 116 46-116 U/L Troponin I High Sensitivity 223 *H </=54 ng/L B-Type Natriuretic Peptide 379.72 0-100 pg/mL Total Protein 6.9 5.7-8.2 g/dL Albumin 3.7 3.2-4.8 g/dL Assessment Acute kidney injury hemodynamically mediated; multifactorial Baseline renal function is normal Sepsis Urinary tract infection Rule out bacteremia and wound infection Syncope Obstructive sleep apnea Ultrasound of the kidney was unremarkable Currently has a [place] catheter urine color slightly dark Recommend evaluation of patient's lower extremity wound Cultures and antibiotics Avoid hypotension Recommend mean arterial pressure greater than 65 IV albumin guarded renal prognosis due to rapid renal function loss Plan discussed with: Patient RAJENDRA SHANNON MD Oct 14, 2024 15:48
--- NOTE | 2024-10-14 16:41 | DVHINCON2 ---
Date of service: Oct 14, 2024 Referring Physician Tobias Schwab NP Reason for Consultation Follow up on chronic ulceration stump of the left great toe. History of Present Illness The patient was seen at bed side resting comfortably. The patient denies any new complaints. The patient was last seen at my office last week for continued care regarding a non healing ulceration to the stump of the left great toe. The patient apparently has experienced a syncopal episode at home and was transferred to [facility] for further evaluation and management. The patient denies any nausea, vomiting or diarrhea. Past Medical History DM II, HTN High lipids, CVA, Thyroid Past Surgical History Amputation left great toe multiple ulcer debridement BLE. Family History: Alzheimer's disease G8 MOTHER, Cardiovascular disease G8 MOTHER, Colon cancer G8 FATHER, G8 SISTER Congenital anomaly Diabetes mellitus G8 MOTHER, FH: dementia G8 MOTHER, Family history: Diabetes mellitus G8 MOTHER, G8 BROTHER Hypertension G8 MOTHER, Family History Reviewed and is non-contributory to management of this case. Social History denies smoking denies illicit drug use denies alcohol use lives at home with his . Allergies: Coded Allergies: Morphine (Verified Allergy, Unknown, 10/13/24) Home Meds Active Scripts Sulfamethoxazole W/Trimethopri (Bactrim Ds Tablet) 1 Tab Tb, 1 TAB PO BID for 7 Days, #14 TAB Prov:LUIS NAIR NP 07/22/24 Doxycycline Monohydrate (Doxycycline Monohydrate) 100 Mg Cap, 1 CAP PO BID, #20 CAP Prov:MELISSA READ MD 05/18/24 Hydrochlorothiazide (Hydrochlorothiazide) 25 Mg Tab, 25 MG PO DAILY for 30 Days, #30 MG 5 Refills Prov:MELISSA READ MD 05/18/24 Polyethylene Glycol 3350 (Miralax) 17 Gm Pow, 17 GM PO BID for 30 Days, #60 POW Prov:MANDY LARES RESIDENT 08/11/23 Insulin Detemir (Levemir) Inj, 20 UNITS SC BID for 30 Days, #60 INJ Prov:MANDY LARES RESIDENT 08/11/23 Reported Medications Pregabalin (Pregabalin) 50 Mg Cap, 1 CAP PO TID 07/21/24 Oxycodone W/ Acetaminophen (Percocet 5/325MG) 1 Tab Tb, 1 TAB PO Q6HPRN PRN for MODERATE PAIN (4-6 PAIN SCALE), #90 TAB 03/04/23 Pregabalin (Lyrica) 50 Mg Cap, 1 CAP PO TID, #90 CAP 03/04/23 Amlodipine Besylate (NORVASC TABLET) 5 Mg Tb, 10 MG PO DAILY, TAB 03/04/23 Triazolam (Halcion) 0.25 Mg Tab, 2 TAB PO QPM, #60 TAB 05/01/18 Sitagliptin Phosphate (Januvia) 50 Mg Tab, 100 MG PO DAILY, #30 TAB 5 Refills 05/01/18 Glipizide (Glipizide) 10 Mg Tab, 10 MG PO BID for 30 Days, MG 05/01/18 Atorvastatin Calcium (ATORVASTATIN CALCIUM) 40 Mg Tab, 1 TAB PO DAILY, #30 TAB 5 Refills 05/01/18 Aspirin (Aspir-Low) 81 Mg Tab, 81 MG PO DAILY for 30 Days, MG 05/01/18 Lisinopril (Lisinopril) 40 Mg Tab, 40 MG PO DAILY for 30 Days, MG 03/11/18 Metformin Hydrochloride (Metformin Hcl) 500 Mg Tab, 500 MG PO BID for 30 Days, MG 03/20/17 Current Medications Current Medications Medications (Trade) Dose Ordered Sig/Olinda Route PRN Reason Start Time Stop Time Status Last Admin Potassium Chloride 100 ml @ 50 mls/hr Q2H IV 10/13/24 21:00 10/14/24 00:59 DC 10/14/24 00:04 Piperacillin Sod/ Tazobactam Sod 100 ml @ 25 mls/hr Q8HR IV 10/14/24 06:00 10/14/24 13:38 Vancomycin HCl 0 ml @ 0 mls/hr UD IV 10/13/24 23:30 Aspirin 162 mg DAILY PO 10/14/24 10:00 10/14/24 10:49 Atorvastatin Calcium (Lipitor) 40 mg HS PO 10/14/24 22:00 Amlodipine Besylate (Norvasc Tablet) 5 mg DAILY PO 10/14/24 10:00 10/14/24 10:49 Diagnostic Test (Pha) (Accu-Chek Comfort Curve T) 1 strip Q6HR 10/14/24 00:00 10/14/24 11:32 Insulin Human Regular (InsuLIN R) Q6HR SC 10/14/24 00:00 10/14/24 11:31 Dextrose 50 ml UD PRN IV Blood Sugar LESS THAN 60 10/13/24 23:30 Acetaminophen/ Hydrocodone Bitart ([place] 5/325MG Tab) 1 tab Q4HP PRN PO MODERATE PAIN (4-6 PAIN SCALE) 10/13/24 23:30 10/14/24 02:44 Ondansetron HCl (Zofran) 4 mg Q4HP PRN IV NAUSEA / VOMITING 10/13/24 23:30 Acetaminophen (Tylenol Tablet) 650 mg Q6HP PRN PO PAIN SCALE 1-3 OR TEMP>100.4 10/13/24 23:30 10/14/24 12:36 Nitroglycerin (Ntrostat Sublingual) 0.4 mg Q5MINP PRN SL FOR CHEST PAIN 10/13/24 23:30 Morphine Sulfate 2 mg Q30M PRN IV FOR CHEST PAIN 10/13/24 23:30 Hold Hydromorphone HCl (Dilaudid Injection) 0.25 mg Q4HPRN PRN IV SEVERE PAIN (7-10 PAIN SCALE) 10/14/24 10:30 10/14/24 16:02 Albumin Human 50 ml @ 100 mls/hr Q8H IV 10/14/24 16:00 10/15/24 08:29 Review of Systems Review of Systems Review of Systems Review of systems are currently negative otherwise addressed in HPI. Vital Signs Vital Signs Date Time Temp Pulse Resp B/P (MAP) Pulse Ox O2 Delivery O2 Flow Rate FiO2 10/14/24 16:02 87 18 130/62 10/14/24 14:00 93 Oxymizer 10.0 10/14/24 14:00 72 72 10/14/24 13:36 99.0 Physical Exam Gen: 69-year-old male in mild distress morbidly obese Skin: Warm, dry, normal color and texture, no rash. HEENT: Normocephalic atraumatic, mucous membranes moist and pink. Neck: Cervical and supraclavicular nodes normal without enlargement, trachea is midline, thyroid gland is normal without masses. Pulmonary: Clear to auscultation and percussion bilaterally. Cardiac: Regular rate and rhythm. No murmur Abdomen: Soft, nontender, nondistended, bowel sounds present all 4 quadrants, no guarding, no rigidity, no organomegaly. Extremities: No cyanosis, clubbing, left foot wound at stump of the left great toe with eschar noted. No discharge is noted, no ascending cellulitis is noted, no foul odor is noted. Right foot with mild swelling due to chronic calcaneal fracture without open wounds or sequela. DP/PT +2/4 bilaterally, CFT 3 seconds bilaterally. Neuro: Cranial nerves II through XII grossly intact, normal affect and speech, no focal motor deficits. X-rays, CT left foot - no definitive evidence of osteomyelitis left foot or left great toe stump. MRI without contrast is pending to r/o osteomyelitis left foot. Labs/Diagnostic Data Labs Test 10/14/24 10:43 10/14/24 05:48 10/14/24 05:29 10/13/24 22:55 Range/Units Lactic Acid Level 1.8 0.4-2.0 mmol/L Ammonia 17 11-32 umol/L POC Glucose 188 H 70-106 mg/dl White Blood Count 20.1 #H 4.4-10.8 10^3/uL Red Blood Count 5.00 4.5-5.90 10^6/uL Hemoglobin 12.9 L 13.5-17.5 g/dL Hematocrit 40.3 L 41.0-53.0 % Mean Corpuscular Volume 80.6 80.0-100.0 fL Mean Corpuscular Hemoglobin 25.8 L 28.0-32.0 pg Mean Corpuscular Hemoglobin Concent 32.0 32.0-36.0 g/dL Red Cell Distribution Width 17.6 H 11.8-14.3 % Platelet Count 217 140-450 10^3/uL Mean Platelet Volume 8.7 6.9-10.8 fL Neutrophils (%) (Auto) 95.2 H 37.0-80.0 % Lymphocytes (%) (Auto) 1.5 L 10.0-50.0 % Monocytes (%) (Auto) 3.1 0.0-12.0 % Eosinophils (%) (Auto) 0.1 0.0-7.0 % Basophils (%) (Auto) 0.1 0.0-2.0 % Neutrophils # (Auto) 19.1 H 1.6-8.6 10 ^3/uL Lymphocytes # (Auto) 0.3 L 0.4-5.4 10 ^3/uL Monocytes # (Auto) 0.6 0-1.3 10 ^3/uL Eosinophils # (Auto) 0 0-0.8 10 ^3/uL Basophils # (Auto) 0 0-0.2 10 ^3/uL Nucleated Red Blood Cells 0.0 % Sodium Level 135 L 136-145 mmol/L Potassium Level 3.2 L 3.5-5.1 mmol/L Chloride Level 99 98-107 mmol/L Carbon Dioxide Level 21 20-31 mmol/L Anion Gap 15 5-15 Blood Urea Nitrogen 46 H 9-23 mg/dL Creatinine 3.36 H 0.700-1.30 mg/dL Glomerular Filtration Rate Calc 19 >90 mL/min BUN/Creatinine Ratio 13.7 10.0-20.0 Serum Glucose 165 #H 74-106 mg/dL Hemoglobin A1c 9.2 H <5.7 % A1C Calcium Level 8.9 8.7-10.4 mg/dL Phosphorus Level 4.3 2.4-5.1 mg/dL Magnesium Level 2.1 1.6-2.6 mg/dL Total Bilirubin 1.0 0.2-1.0 mg/dL Aspartate Amino Transferase (AST) 510 H 13-40 U/L Alanine Aminotransferase (ALT) 145 H 7-40 U/L Alkaline Phosphatase 125 H 46-116 U/L Total Protein 7.7 5.7-8.2 g/dL Albumin 4.0 3.2-4.8 g/dL Triglycerides Level 158 H < 150 mg/dL Cholesterol Level 102 < 200 mg/dL LDL Cholesterol 32 < 100 mg/dL HDL Cholesterol 36 L 40-59 mg/dL Vitamin B12 Level 446 211-911 pg/mL Vitamin D 25-Hydroxy 22.0 L 30.0-100 ng/mL Thyroid Stimulating Hormone (TSH) 0.46 L 0.55-4.78 uIU/mL Hepatitis A IgM Antibody Negative Hepatitis B Surface Antigen Negative Negative Hepatitis B Core IgM Antibody Negative Hepatitis C Antibody Negative Negative Blood Gas Specimen Type Arterial Blood Gas Sample Site Right radial Blood Gas Patient Temperature 37.0 Arterial Blood Date Drawn [id number] Arterial Blood pH 7.411 7.350-7.450 Arterial Blood Partial Pressure CO2 37.6 35.0-48.0 mmHg Arterial Blood Partial Pressure O2 70.3 L 83.0-108.0 mmHg Arterial Blood HCO3 23.4 21.0-28.0 mmol/L Arterial Blood Oxygen Saturation 93.7 L 94.0-98.0 % Arterial Blood Base Excess -1.0 -2.0-3.0 mmol/L Arterial Blood Oxyhemoglobin 92.3 L 94.0-98.0 % Arterial Blood Carboxyhemoglobin 1.2 0.5-1.5 % Arterial Blood Methemoglobin 0.3 0.0-1.5 % Donta Test Modified Blood Gas Total Hemoglobin 12.10 L 13.5-17.5 g/dL Blood Gas Liter Flow 5.00 Blood Gas Modality Nasal cannula FiO2 % 40.0 Test 10/13/24 22:12 10/13/24 22:00 10/13/24 18:50 Range/Units D-Dimer, Quantitative 5.50 H 0.0-0.49 mg/L FEU Troponin I High Sensitivity 324 *H </=54 ng/L Urine Color Yellow Yellow Urine Clarity Turbid H Clear Urine pH 6.0 5.0-9.0 Urine Specific [place] 1.020 1.001-1.035 Urine Protein 3+ H Negative Urine Ketones Negative Negative Urine Blood 3+ H Negative /uL Urine Nitrite Negative Negative Urine Bilirubin Negative Negative Urine Urobilinogen Normal Negative mg/dL Urine Leukocyte Esterase Negative Negative /uL Urine RBC 2 0 - 3 /hpf Urine WBC 4 0 - 3 /hpf Urine Squamous Epithelial Cells Few <5 /hpf Urine Amorphous Crystals Few None Seen /hpf Urine Bacteria Mod H None Seen /hpf Urine Glucose 4+ H Normal mg/dL Urine Opiates Screen Neg NEGATIVE Urine Fentanyl Screen Neg NEGATIVE Urine Barbiturates Screen Neg NEGATIVE Urine Phencyclidine Screen Neg NEGATIVE Urine Amphetamines Screen Neg NEGATIVE Urine Benzodiazepines Screen Neg NEGATIVE Urine Cocaine Screen Neg NEGATIVE Urine Cannabinoids Screen Neg NEGATIVE Differential Total Cells Counted 100.0 100 Neutrophils % (Manual) 63 37.0-80.0 Band Neutrophils % (Manual) 30 Lymphocytes % (Manual) 2 L 10.0-50.0 Monocytes % (Manual) 4 0-12 Eosinophils % (Manual) 0 0-7 Basophils % (Manual) 0 0.0-2.0 Metamyelocytes % (manual) 1 Myelocytes % (Manual) 0 Promyelocytes % (Manual) 0 Blast Cells % (Manual) 0 Reactive Lymphocytes 0 Platelet Estimate Adequate Microcytosis Slight Prothrombin Time 13.1 H 9.3-11.8 sec Prothrombin Time INR 1.26 H 0.9-1.15 Activated Partial Thromboplast Time 34.4 24.5-34.5 SEC B-Type Natriuretic Peptide 379.72 0-100 pg/mL Assessment Primary diagnosis: Chronic 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 Chronic calcaneal fracture right foot. Mild edema right LE. Secondary diagnosis: DM II CVA HTN Dyslipidemia Thyroid Plan/Recommendation -continue with antibiotics as prescribed. -continue with wound care at bed side side as prescribed. -MRI without contrast is pending to r/o presence of osteomyelitis stump of the left great toe. -Further evaluation and management will depend on the patient's clinical progress and results of studies. -All questions and concerns were answered to the patient's satisfaction. Thank you for your consultation. Plan discussed with: Patient PRINCESSRASHEEDCONNOR Masters DPM Oct 14, 2024 16:41
[2024-10-14] MEDS: ALBUMIN 25% 50 ML IV SCH (17:53)
--- NOTE | 2024-10-14 17:55 | DVHSR ---
APPROVED REPORT EXAM: LIMITED Two-dimensional and M-mode echocardiogram with Doppler and color Doppler. Blood Pressure: 131/62 mmHg INDICATION NSTEMI RISK FACTORS Obesity: Height: 5' 10", Weight: 295 DIMENSIONS LVDd5.1 (3.8-5.7cm)LA (2D)5.0 (1.9-4.0cm)Aortic Root3.7 (2.0-3.7cm) LVDs3.4 (2.5-4.0cm)LA (MM) (1.9-4.0cm)Aortic Cusp Exc2.1 (1.5-2.0cm) EF (%) 60.0 (55-70%)Rt. Atrium4.9 (1.9-4.0cm)Asc. Aorta cm IVSd1.3 (0.7-1.1cm)RV (D) (1.8-2.4cm) PWd1.2 (0.7-1.1cm) Mitral Valve MitralMitral Stenosis E wave1.60m/sMV Mean GR.mmHg A wave1.00m/sMV Peak GR.mmHg E/A ratio1.62D MVAcm2 Aortic Valve Aortic ValveAortic Stenosis V11.50m/Sofie Mean GR.8mmHg V21.80m/Sofie Peak GR.14mmHg LVOT Diameter2.5 (1.8-2.4cm)Doppler AVA4.09cm2 Other Information Quality : Technically LimitedRhythm : Technically limited study due to body habitus, pt on c-pap sitting up due to shortness of breath. Conclusion Normal left ventricular size and dimension. Normal left ventricular systolic function estimated ejec tion fraction 55%. There is a grade 1 diastolic dysfunction. Normal right ventricular size and dimension. Normal right ventricular systolic function. Normal biatrial size and dimension. The aortic valve is mildly sclerotic. Normal mitral valve structure and function. Normal tricuspid valve structure and function. The pulmonary valve is grossly normal. No pericardial effusion.
[2024-10-14 18:36] LABS: Creatinine, Urine 77.85 mg/dL (30.0-125.0)
[2024-10-14 18:38] LABS: Protein, Urine 647.5 mg/dL (1-14)
--- NOTE | 2024-10-14 19:11 | DVHINCON2 ---
Date of service: Oct 14, [address] Terry Reason for Consultation Syncope History of Present Illness Mr. Escoto is a 69 years old right-handed gentleman with a history of hypertension, diabetes, dyslipidemia, hypothyroidism, kidney stone, obesity, sleep apnea, he was brought to the [facility] on 10/13/2024 with a chief company of syncopal event. At that time, he is alert, oriented x3, able t o provide history, I have also talked to his He remembers going to the bathroom at home, without dizziness or any warning symptoms, he woke up on the floor for hours later, confused, he was reports a lot of pain all over the body on waking up, along with increased sweating, nausea. He reports not able to move the legs after the fall His was not with him when this happened, however the suspected if the patient was dozes off when he was sitting on toilet bowl and fell down, not able to get up. He midnight able to control the bladder. In 2016, the patient had acute left-sided weakness, is that history able to move the left arm and leg, the patient was seen in the [facility] (Not confirmed with our EMR). He has had some recovery from stroke. According to our record, he was on aspirin 81 mg one daily, Lipitor 40 mg daily Urinalysis, 10/13/2024: WBC: 4, urine leukocyte esterase: Negative UDS, 10/30/2024: Negative ABG, 10/13/2024, PO2: 70.3 WBC/HB/PLT/MCV, 10/13/2024: 36/12.2/266/78.5 PT/INR/PTT, 10/13/2024: 13.1/1.26/34.4 BUN/CR, 10/14/2024: 46/3.36 D-dimer, 10/13/2024: 5.5 HGB A1c, 10/14/2024: 9.2 Vitamin B12, 10/14/2024: 446 TBI/AST/ALT/AP, 10/14/2024: 1/510/145/125 CT head, 10/13/2024: 1. No acute intracranial abnormality. 2. Mild chronic microvascular ischemic change. 3. Chronic lacunar infarct in the right thalamus 4. Paranasal sinus mucosal thickening and near-complete opacification of the right maxillary sinus. Correlate clinically for acute sinusitis CT, left foot, 10/14/2024: 1. Moderate focal soft tissue swelling in the medial plantar mid/ forefoot at the level of the amputated proximal 1st metatarsal . This could be postoperative or phlegmon. No well-formed fluid collection at this time to suggest abscess. 2. Prior amputation of the 1st digit at the level of the proximal metatarsal. 3. No evidence of acute fracture or osteomyelitis. 4. Moderate degenerative changes of the midfoot with subchondral lucencies and joint space narrowing MRI Head, 09/08/2024: 1. No evidence of acute intracranial pathology. 2. Mild diffuse volume loss with minimal chronic microvascular ischemic disease in the periventricular and deep white matter. 3. Old lacunar infarct in the right thalamus. Past Medical History Hypertension, diabetes, dyslipidemia, hypothyroidism, kidney stone, obesity, s leep apnea Past Surgical History Appendectomy, left great toe amputation Family History: Alzheimer's disease G8 MOTHER, Cardiovascular disease G8 MOTHER, Colon cancer G8 FATHER, G8 SISTER Congenital anomaly Diabetes mellitus G8 MOTHER, FH: dementia G8 MOTHER, Family history: Diabetes mellitus G8 MOTHER, G8 BROTHER Hypertension G8 MOTHER, Family History Diabetes, heart disease, dementia, cancer Social History He has not tobacco smoke, he denies a history of alcohol or recreational substance abuse Allergies: Coded Allergies: Morphine (Verified Allergy, Unknown, 10/13/24) Home Meds Active Scripts Sulfamethoxazole W/Trimethopri (Bactrim Ds Tablet) 1 Tab Tb, 1 TAB PO BID for 7 Days, #14 TAB Prov:LUIS NAIR NP 07/22/24 Doxycycline Monohydrate (Doxycycline Monohydrate) 100 Mg Cap, 1 CAP PO BID, #20 CAP Prov:MELISSA READ MD 05/18/24 Hydrochlorothiazide (Hydrochlorothiazide) 25 Mg Tab, 25 MG PO DAILY for 30 Days, #30 MG 5 Refills Prov:MELISSA READ MD 05/18/24 Polyethylene Glycol 3350 (Miralax) 17 Gm Pow, 17 GM PO BID for 30 Days, #60 POW Prov:MANDY LARES 08/11/23 Insulin Detemir (Levemir) Inj, 20 UNITS SC BID for 30 Days, #60 INJ Prov:MANDY LARES RESIDENT 08/11/23 Reported Medications Pregabalin (Pregabalin) 50 Mg Cap, 1 CAP PO TID 07/21/24 Oxycodone W/ Acetaminophen (Percocet 5/325MG) 1 Tab Tb, 1 TAB PO Q6HPRN PRN for MODERATE PAIN (4-6 PAIN SCALE), #90 TAB 03/04/23 Pregabalin (Lyrica) 50 Mg Cap, 1 CAP PO TID, #90 CAP 03/04/23 Amlodipine Besylate (NORVASC TABLET) 5 Mg Tb, 10 MG PO DAILY, TAB 03/04/23 Triazolam (Halcion) 0.25 Mg Tab, 2 TAB PO QPM, #60 TAB 05/01/18 Sitagliptin Phosphate (Januvia) 50 Mg Tab, 100 MG PO DAILY, #30 TAB 5 Refills 05/01/18 Glipizide (Glipizide) 10 Mg Tab, 10 MG PO BID for 30 Days, MG 05/01/18 Atorvastatin Calcium (ATORVASTATIN CALCIUM) 40 Mg Tab, 1 TAB PO DAILY, #30 TAB 5 Refills 05/01/18 Aspirin (Aspir-Low) 81 Mg Tab, 81 MG PO DAILY for 30 Days, MG 05/01/18 Lisinopril (Lisinopril) 40 Mg Tab, 40 MG PO DAILY for 30 Days, MG 03/11/18 Metformin Hydrochloride (Metformin Hcl) 500 Mg Tab, 500 MG PO BID for 30 Days, MG 03/20/17 Current Medications Current Medications Medications (Trade) Dose Ordered Sig/Olinda Route PRN Reason Start Time Stop Time Status Last Admin Potassium Chloride 100 ml @ 50 mls/hr Q2H IV 10/13/24 21:00 10/14/24 00:59 DC 10/14/24 00:04 Piperacillin Sod/ Tazobactam Sod 100 ml @ 25 mls/hr Q8HR IV 10/14/24 06:00 10/14/24 13:38 Vancomycin HCl 0 ml @ 0 mls/hr UD IV 10/13/24 23:30 Aspirin 162 mg DAILY PO 10/14/24 10:00 10/14/24 10:49 Atorvastatin Calcium (Lipitor) 40 mg HS PO 10/14/24 22:00 Amlodipine Besylate (Norvasc Tablet) 5 mg DAILY PO 10/14/24 10:00 10/14/24 10:49 Diagnostic Test (Pha) (Accu-Chek Comfort Curve T) 1 strip Q6HR 10/14/24 00:00 10/14/24 17:58 Insulin Human Regular (InsuLIN R) Q6HR SC 10/14/24 00:00 10/14/24 17:58 Dextrose 50 ml UD PRN IV Blood Sugar LESS THAN 60 10/13/24 23:30 Acetaminophen/ Hydrocodone Bitart (Union 5/325MG Tab) 1 tab Q4HP PRN PO MODERATE PAIN (4-6 PAIN SCALE) 10/13/24 23:30 10/14/24 02:44 Ondansetron HCl (Zofran) 4 mg Q4HP PRN IV NAUSEA / VOMITING 10/13/24 23:30 Acetaminophen (Tylenol Tablet) 650 mg Q6HP PRN PO PAIN SCALE 1-3 OR TEMP>100.4 10/13/24 23:30 10/14/24 12:36 Nitroglycerin (Ntrostat Sublingual) 0.4 mg Q5MINP PRN SL FOR CHEST PAIN 10/13/24 23:30 Morphine Sulfate 2 mg Q30M PRN IV FOR CHEST PAIN 10/13/24 23:30 Hold Hydromorphone HCl (Dilaudid Injection) 0.25 mg Q4HPRN PRN IV SEVERE PAIN (7-10 PAIN SCALE) 10/14/24 10:30 10/14/24 16:02 Albumin Human 50 ml @ 100 mls/hr Q8H IV 10/14/24 16:00 10/15/24 08:29 10/14/24 17:53 Review of Systems As above, the other systems are negative Vital Signs Vital Signs Date Time Temp Pulse Resp B/P (MAP) Pulse Ox O2 Delivery O2 Flow Rate FiO2 10/14/24 18:36 96 Oxymizer 10.0 10/14/24 18:36 72 72 10/14/24 17:00 97.5 91 19 97/52 (67) 97.5 Physical Exam GENERAL EXAM: General: the patient is well developed and nourished. No acute distress. HEENT: Normocephalic, neck is supple, no carotid bruits. No mass. RESPIRATORY: Normal respiratory effort with symmetrical lung expansion. Lungs clear to auscultation. CARDIOVASCULAR: Regular rate and rhythm with no murmurs. S1, S2. ABDOMEN: Soft, nontender, normal bowel sound Hammertoes in both feet. Status post left big toe amputation Diffuse tenderness to palpation in the back, extremities NEUROLOGICAL: MENTAL STATUS: Awake and alert. Oriented to person, place, time and general circumstances. Able to give personal history. SPEECH, LANGUAGE, HIGHER CORTICAL FUNCTION: no aphasia or dysathria. CRANIAL NERVES: #2: Intact visual horn to confrontation. The optic discs were sharp. #3,4,6: Pupils are equal, round and reactive. EOMs full and conjugate. No nystagmus. #5: Facial sensation intact in all three divisions bilaterally. Mandibular strength intact. #7: Facial muscles symmetrical and strength intact. #8: Hearing grossly normal to voice. #9,10: Uvula and soft palate rise in the midline. Swallow and voice are normal. #11: Trapezius and sternomastoid strength intact bilaterally. #12: Tongue midline. No fasciculations or atrophy. SENSATION: Sensation to touch and pinprick is diminished distally in the lower extremities, upper extremities, and central portion of the stomach wall MOTOR: Normal tone in the upper and lower extremity. Normal muscle bulk. No fasciculations. No abnormal movements or posturing. Muscle strength of the major groups in the upper extremities is 4/5. Muscle strength of the major groups in the lower extremities is: Right two to 3/5, left 2/5. REFLEXES: Deep tendon reflexes are symmetrically diminished. No pathological reflexes. CEREBELLAR/COORDINATION: Finger to nose is five bilaterally bilaterally. GAIT/STATION: deferred. Labs/Diagnostic Data Labs Test 10/14/24 17:27 10/14/24 10:43 10/14/24 05:48 10/14/24 05:29 Range/Units Urine Creatinine 77.85 30.0-125.0 mg/dL Urine Sodium 24 L 40-220 mmol/L Urine Total Protein 647.5 H 1-14 mg/dL Lactic Acid Level 1.8 0.4-2.0 mmol/L Ammonia 17 11-32 umol/L POC Glucose 188 H 70-106 mg/dl White Blood Count 20.1 #H 4.4-10.8 10^3/uL Red Blood Count 5.00 4.5-5.90 10^6/uL Hemoglobin 12.9 L 13.5-17.5 g/dL Hematocrit 40.3 L 41.0-53.0 % Mean Corpuscular Volume 80.6 80.0-100.0 fL Mean Corpuscular Hemoglobin 25.8 L 28.0-32.0 pg Mean Corpuscular Hemoglobin Concent 32.0 32.0-36.0 g/dL Red Cell Distribution Width 17.6 H 11.8-14.3 % Platelet Count 217 140-450 10^3/uL Mean Platelet Volume 8.7 6.9-10.8 fL Neutrophils (%) (Auto) 95.2 H 37.0-80.0 % Lymphocytes (%) (Auto) 1.5 L 10.0-50.0 % Monocytes (%) (Auto) 3.1 0.0-12.0 % Eosinophils (%) (Auto) 0.1 0.0-7.0 % Basophils (%) (Auto) 0.1 0.0-2.0 % Neutrophils # (Auto) 19.1 H 1.6-8.6 10 ^3/uL Lymphocytes # (Auto) 0.3 L 0.4-5.4 10 ^3/uL Monocytes # (Auto) 0.6 0-1.3 10 ^3/uL Eosinophils # (Auto) 0 0-0.8 10 ^3/uL Basophils # (Auto) 0 0-0.2 10 ^3/uL Nucleated Red Blood Cells 0.0 % Sodium Level 135 L 136-145 mmol/L Potassium Level 3.2 L 3.5-5.1 mmol/L Chloride Level 99 98-107 mmol/L Carbon Dioxide Level 21 20-31 mmol/L Anion Gap 15 5-15 Blood Urea Nitrogen 46 H 9-23 mg/dL Creatinine 3.36 H 0.700-1.30 mg/dL Glomerular Filtration Rate Calc 19 >90 mL/min BUN/Creatinine Ratio 13.7 10.0-20.0 Serum Glucose 165 #H 74-106 mg/dL Hemoglobin A1c 9.2 H <5.7 % A1C Calcium Level 8.9 8.7-10.4 mg/dL Phosphorus Level 4.3 2.4-5.1 mg/dL Magnesium Level 2.1 1.6-2.6 mg/dL Total Bilirubin 1.0 0.2-1.0 mg/dL Aspartate Amino Transferase (AST) 510 H 13-40 U/L Alanine Aminotransferase (ALT) 145 H 7-40 U/L Alkaline Phosphatase 125 H 46-116 U/L Total Protein 7.7 5.7-8.2 g/dL Albumin 4.0 3.2-4.8 g/dL Triglycerides Level 158 H < 150 mg/dL Cholesterol Level 102 < 200 mg/dL LDL Cholesterol 32 < 100 mg/dL HDL Cholesterol 36 L 40-59 mg/dL Vitamin B12 Level 446 211-911 pg/mL Vitamin D 25-Hydroxy 22.0 L 30.0-100 ng/mL Thyroid Stimulating Hormone (TSH) 0.46 L 0.55-4.78 uIU/mL Hepatitis A IgM Antibody Negative Hepatitis B Surface Antigen Negative Negative Hepatitis B Core IgM Antibody Negative Hepatitis C Antibody Negative Negative Test 10/13/24 22:55 10/13/24 22:12 10/13/24 22:00 10/13/24 18:50 Range/Units Blood Gas Specimen Type Arterial Blood Gas Sample Site Right radial Blood Gas Patient Temperature 37.0 Arterial Blood Date Drawn [id number] Arterial Blood pH 7.411 7.350-7.450 Arterial Blood Partial Pressure CO2 37.6 35.0-48.0 mmHg Arterial Blood Partial Pressure O2 70.3 L 83.0-108.0 mmHg Arterial Blood HCO3 23.4 21.0-28.0 mmol/L Arterial Blood Oxygen Saturation 93.7 L 94.0-98.0 % Arterial Blood Base Excess -1.0 -2.0-3.0 mmol/L Arterial Blood Oxyhemoglobin 92.3 L 94.0-98.0 % Arterial Blood Carboxyhemoglobin 1.2 0.5-1.5 % Arterial Blood Methemoglobin 0.3 0.0-1.5 % Donta Test Modified Blood Gas Total Hemoglobin 12.10 L 13.5-17.5 g/dL Blood Gas Liter Flow 5.00 Blood Gas Modality Nasal cannula FiO2 % 40.0 D-Dimer, Quantitative 5.50 H 0.0-0.49 mg/L FEU Troponin I High Sensitivity 324 *H </=54 ng/L Urine Color Yellow Yellow Urine Clarity Turbid H Clear Urine pH 6.0 5.0-9.0 Urine Specific Mcbee 1.020 1.001-1.035 Urine Protein 3+ H Negative Urine Ketones Negative Negative Urine Blood 3+ H Negative /uL Urine Nitrite Negative Negative Urine Bilirubin Negative Negative Urine Urobilinogen Normal Negative mg/dL Urine Leukocyte Esterase Negative Negative /uL Urine RBC 2 0 - 3 /hpf Urine WBC 4 0 - 3 /hpf Urine Squamous Epithelial Cells Few <5 /hpf Urine Amorphous Crystals Few None Seen /hpf Urine Bacteria Mod H None Seen /hpf Urine Glucose 4+ H Normal mg/dL Urine Opiates Screen Neg NEGATIVE Urine Fentanyl Screen Neg NEGATIVE Urine Barbiturates Screen Neg NEGATIVE Urine Phencyclidine Screen Neg NEGATIVE Urine Amphetamines Screen Neg NEGATIVE Urine Benzodiazepines Screen Neg NEGATIVE Urine Cocaine Screen Neg NEGATIVE Urine Cannabinoids Screen Neg NEGATIVE Differential Total Cells Counted 100.0 100 Neutrophils % (Manual) 63 37.0-80.0 Band Neutrophils % (Manual) 30 Lymphocytes % (Manual) 2 L 10.0-50.0 Monocytes % (Manual) 4 0-12 Eosinophils % (Manual) 0 0-7 Basophils % (Manual) 0 0.0-2.0 Metamyelocytes % (manual) 1 Myelocytes % (Manual) 0 Promyelocytes % (Manual) 0 Blast Cells % (Manual) 0 Reactive Lymphocytes 0 Platelet Estimate Adequate Microcytosis Slight Prothrombin Time 13.1 H 9.3-11.8 sec Prothrombin Time INR 1.26 H 0.9-1.15 Activated Partial Thromboplast Time 34.4 24.5-34.5 SEC B-Type Natriuretic Peptide 379.72 0-100 pg/mL Assessment Fall Syncope Stroke Partial complex seizure Chronic stroke Bilateral lower extremity weakness, to rule out thoracic spine myelopathy Sleep apnea Cellulitis Polyneuropathy Plan/Recommendation Monitoring Supportive treatment Telemetry EEG CT T-spine MR brain scan MRI T-spine IV antibiotics Aspirin 162 mg daily Lipitor 40 mg daily CPAP the hospital Foot care Daily foot inspection He has been advised not drive until cleared DMV report in the chart More recommendation per clinical course Plan discussed with: Patient, Spouse, Other SOLOMON KRISHNAN MD Oct 14, 2024 19:11
[2024-10-14] MEDS ORDERED: LORazepam 2MG/ML-1ML VIAL IV PRN (20:00)
[2024-10-14] MEDS: ATORVASTATIN 20 MG TAB PO SCH (21:55)
[2024-10-14] MEDS: ONDANSETRON HCL 4 MG/2 ML VIAL IV PRN (23:16)
[2024-10-15] VITALS (7 sets, daily range): BP systolic 107–138; BP diastolic 54–73; PULSE 63–102; RESP 18–21; TEMP 98.3–100.2; O2SAT 90–95
[2024-10-15 03:46] LABS: COVID19 ANTIGEN SOFIA FIA NEGATIVE (NEGATIVE); Rapid Influenza A Negative (Negative); Rapid Influenza B Negative (Negative)
[2024-10-15 06:40] LABS: Anion Gap 11 (5-15); Carbon Dioxide 23 mmol/L (20-31); Chloride 98 mmol/L (98-107); Potassium 3.3 mmol/L (3.5-5.1); Sodium 132 mmol/L (136-145)
[2024-10-15 06:41] LABS: Calcium 8.4 mg/dL (8.7-10.4)
[2024-10-15 06:46] LABS: BUN/Creatinine Ratio 11.4 (10.0-20.0); Glucose 140 mg/dL (74-106)
[2024-10-15 06:51] LABS: Blood Urea Nitrogen 60 mg/dL (9-23)
--- NOTE | 2024-10-15 08:34 | DVHPNRES ---
Progress Note Date Seen: Oct 15, 2024 Resident Creating Document: BUTCH HAYWARD RESIDENT Medical Necessity Reason Pt with a Central, PICC or Fol: No Subjective Review of Systems Rustam Escoto is a 69-year-old male patient who presents to the ED with chief complaint of mechanical fall with loss of consciousness which lasted approximately 4 hours, patient says after episode he presented altered mental status. Patient has amnesia lupe-event of what he was doing in the bathroom. Patient also reports presenting left lower limb pain, immobility of left lower limb and dyspnea after fall associated with dry cough. Emergency department patient completed 12 lead EKG which showed sinus tachycardia with multiple PACs, bad progression of precordial R's, troponin elevated but with no significant delta. Denies palpitation, chest pain, dyspnea previous to episode, nausea, vomiting, diarrhea, fever, chills, constipation, bleeding and other motor or sensory deficits. 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 Surgical history: Amputation of left hallux in 2021 Family history: Noncontributory Social history: Lives in [place] with . Denies tobacco, alcohol and other drug abuse. 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 Allergies: Denies (per EMR morphine) Home medication: Does not recall (per EMR amlodipine 10 mg p.o. daily, aspirin 81 mg p.o. daily, atorvastatin 40 mg p.o. daily, glipizide 10 mg p.o. b.i.d., hydrochlorothiazide 25 mg p.o. daily, insulin detemir 20 units, lisinopril 40 mg p.o. daily, metformin 500 mg p.o. b.i.d., oxycodone, polyethylene glycol, pregabalin 50 mg p.o. t.i.d., sitagliptin 100 mg p.o. daily, triazolam) Patient seen and examined at bedside. Currently patient feels better. Objective vital signs Vital Sign Date Time Temp Pulse Resp B/P (MAP) Pulse Ox O2 Delivery O2 Flow Rate FiO2 10/15/24 06:56 95 20 123/68 10/15/24 05:00 98.9 95 98.9 10/14/24 23:16 Nasal BiPAP Mask 50 10/14/24 20:00 10 Total Intake and Output 10/14/24 10/14/24 10/15/24 15:00 23:00 07:00 Intake Total 150 ml 550 ml 1700 ml Output Total 500 ml 350 ml Balance 150 ml 50 ml 1350 ml medications Current Medications Medications Dose Ordered Sig/Olinda Route Start Time Stop Time Status Last Admin Dose Admin Piperacillin Sod/ Tazobactam Sod 100 ml @ 25 mls/hr Q8HR IV 10/14/24 06:00 10/15/24 06:29 25 MLS/HR Vancomycin HCl 0 ml @ 0 mls/hr UD IV 10/13/24 23:30 Aspirin 162 mg DAILY PO 10/14/24 10:00 10/14/24 10:49 162 MG Atorvastatin Calcium 40 mg HS PO 10/14/24 22:00 10/14/24 21:55 40 MG Amlodipine Besylate 5 mg DAILY PO 10/14/24 10:00 10/14/24 10:49 5 MG Diagnostic Test (Pha) 1 strip Q6HR 10/14/24 00:00 10/15/24 06:29 1 STRIP Insulin Human Regular Q6HR SC 10/14/24 00:00 10/15/24 06:14 2 UNITS Dextrose 50 ml UD PRN IV 10/13/24 23:30 Acetaminophen/ Hydrocodone Bitart 1 tab Q4HP PRN PO 10/13/24 23:30 10/14/24 22:05 1 TAB Ondansetron HCl 4 mg Q4HP PRN IV 10/13/24 23:30 10/14/24 23:16 4 MG Acetaminophen 650 mg Q6HP PRN PO 10/13/24 23:30 10/14/24 12:36 650 MG Nitroglycerin 0.4 mg Q5MINP PRN SL 10/13/24 23:30 Morphine Sulfate 2 mg Q30M PRN IV 10/13/24 23:30 Hold Hydromorphone HCl 0.25 mg Q4HPRN PRN IV 10/14/24 10:30 10/15/24 06:26 0.25 MG Albumin Human 50 ml @ 100 mls/hr Q8H IV 10/14/24 16:00 10/15/24 08:29 10/14/24 23:49 100 MLS/HR Lorazepam 1 mg ONCE PRN IV 10/14/24 20:00 10/17/24 19:59 Examination Patient lying in bed, in no acute distress General: Lucid, afebrile, mucosae are moist Cardiovascular: Normal S1 and S2. No murmurs, gallops or rubs Respiratory: Regular ventilation mechanics. Clear lung sounds on auscultation. On nasal CPAP machine Abdomen: Soft, nontender, no organomegaly, normal bowel sounds MSK/skin: Mobilizes 4 limbs. Skin is dry and warm. Bilateral Charcot foot deformity, surgical site of left hallux amputation with no erythema. Patient has excruciating pain in left thigh, could not mobilize leg. Neurological: Oriented in 3 spheres. No motor no sensitive deficits. Pupils are isocoric and reactive laboratory and microbiology Laboratory Tests 10/15/24 05:26 10/14/24 05:29 Test 10/15/24 05:26 Range/Units Serum Glucose 140 H 74-106 mg/dL Microbiology Date/Time Source Procedure Growth Status 10/14/24 10:43 Blood Blood Culture - Preliminary Resulted Problem List/Assessment/Plan Problem List/Assessment/Plan Assessment NSTEMI probable type 2 Metabolic encephalopathy probably secondary to sepsis Sepsis probably secondary to pneumonia Bacteremia to Gram-positive cocci in clusters Acute respiratory failure Rule out osteomyelitis SILVESTRE hemodynamically mediated on CKD Hypokalemia Transaminitis Rule out lower limb fracture Hypertension Dyslipidemia Diabetes Morbid obesity Plan/Recommendation Elevated troponin probably secondary to sepsis. Loss of consciousness probably secondary to metabolic encephalopathy (history is not compatible with syncope) Completed echocardiogram: LVEF 55%, grade 1 diastolic dysfunction, rest of study within normal limits. Ordered abdominal ultrasound and hepatitis panel Ordered left foot MRI to rule out osteomyelitis and left lower limb x-rays to rule out fracture. Recommend lower limb CT due to limited results, at discretion of hospitalist. Head CT and spine CT with no acute intracranial bleeding or fractures and evidence of chronic CVA (has sinusitis) Worsening kidney function, suggest evaluation by Nephrology and avoid nephrotoxic medication (may be switch vancomycin to linezolid) Pending V/Q scan to rule out pulmonary embolism Discussed case with Dr. Miranda, patient and nurses: Elevated troponin probably secondary to sepsis (bacteremia to Gram-positive cocci in clusters). IV antibiotics per hospitalist. Patient has poor prognosis. No further cardiological workup needed during this admission. We will sign off from case at this point. Please reconsult if needed, thank you. Plan discussed with: Patient, Other (Nurses) My Orders My Orders Orders - BUTCH HAYWARD Procedure Category Date Status Time Blood Culture [place] 10/14/24 In Process 09:50 Urine Bacterial [place] 10/14/24 In Process Culture 09:50 Echo 2d Mode Cardiac US 10/14/24 Resulted DOP 09:50 Mri L Foot Wo Contrast MRI 10/14/24 Logged 09:57 Abdomen Complete US 10/14/24 Resulted Sonogram 09:58 Hydromorphone PHA 10/14/24 In Process Injection (Dilaudid 10:30 * Wound Consult CONS 10/14/24 Transmitted L Femur Xray XY 10/14/24 Resulted 12:20 Pelvis Ap XY 10/14/24 Resulted 12:28 L Knee 3v Xray XY 10/14/24 Resulted 12:28 Visit Coding Cardiology RES Date of Service: Oct 15, 2024 Billing Provider: NIMESH MIRANDA MD Cardiology Common Codes: 78814-AYK/OBS SAME DATE (High), [id number] CARE- EACH +30MIN BUTCH HAYWARD RESIDENT Oct 15, 2024 08:34
--- NOTE | 2024-10-15 09:30 | DVHPN2 ---
Reviewed: Care Plan, H&P, Labs, Medications, Previous Orders, Radiology Changes from previous H/P or p: No Changes Objective Vitals Vital Signs Date Time Temp Pulse Resp B/P (MAP) Pulse Ox O2 Delivery O2 Flow Rate FiO2 10/15/24 06:56 95 20 123/68 10/15/24 05:00 98.9 95 98.9 10/14/24 23:16 Nasal BiPAP Mask 50 10/14/24 20:00 10 Intake/Output Intake and Output 10/15/24 07:00 Intake Total 2400 ml Output Total 850 ml Balance 1550 ml Intake Oral 2000 ml IV Total 400 ml Output Urine Total 850 ml Medications Current Medications Medications Dose Ordered Sig/Olinda Route Start Time Stop Time Status Last Admin Dose Admin Piperacillin Sod/ Tazobactam Sod 100 ml @ 25 mls/hr Q8HR IV 10/14/24 06:00 10/15/24 06:29 25 MLS/HR Vancomycin HCl 0 ml @ 0 mls/hr UD IV 10/13/24 23:30 Atorvastatin Calcium 40 mg HS PO 10/14/24 22:00 10/14/24 21:55 40 MG Amlodipine Besylate 5 mg DAILY PO 10/14/24 10:00 10/14/24 10:49 5 MG Diagnostic Test (Pha) 1 strip Q6HR 10/14/24 00:00 10/15/24 06:29 1 STRIP Insulin Human Regular Q6HR SC 10/14/24 00:00 10/15/24 06:14 2 UNITS Dextrose 50 ml UD PRN IV 10/13/24 23:30 Acetaminophen/ Hydrocodone Bitart 1 tab Q4HP PRN PO 10/13/24 23:30 10/14/24 22:05 1 TAB Ondansetron HCl 4 mg Q4HP PRN IV 10/13/24 23:30 10/14/24 23:16 4 MG Acetaminophen 650 mg Q6HP PRN PO 10/13/24 23:30 10/14/24 12:36 650 MG Nitroglycerin 0.4 mg Q5MINP PRN SL 10/13/24 23:30 Morphine Sulfate 2 mg Q30M PRN IV 10/13/24 23:30 Hold Hydromorphone HCl 0.25 mg Q4HPRN PRN IV 10/14/24 10:30 10/15/24 06:26 0.25 MG Lorazepam 1 mg ONCE PRN IV 10/14/24 20:00 10/17/24 19:59 Aspirin 81 mg DAILY PO 10/15/24 10:00 UNV Heparin Sodium (Porcine) 5,000 units Q12HR SC 10/15/24 10:00 UNV Sodium Chloride 1,000 ml @ 60 mls/hr [id number] IV 10/15/24 08:45 UNV Laboratory Results Laboratory Tests 10/14/24 05:29 10/15/24 05:26 Chemistry Test 10/15/24 05:26 Calcium Level 8.4 mg/dL (8.7-10.4) L Urinalysis Test 10/13/24 22:00 10/14/24 17:27 Urine Color Yellow (Yellow) Urine Clarity Turbid (Clear) H Urine pH 6.0 (5.0-9.0) Urine Specific [place] 1.020 (1.001-1.035) Urine Protein 3+ (Negative) H Urine Ketones Negative (Negative) Urine Blood 3+ /uL (Negative) H Urine Nitrite Negative (Negative) Urine Bilirubin Negative (Negative) Urine Urobilinogen Normal mg/dL (Negative) Urine Leukocyte Esterase Negative /uL (Negative) Urine RBC 2 /hpf (0 - 3) Urine WBC 4 /hpf (0 - 3) Urine Squamous Epithelial Cells Few /hpf (<5) Urine Amorphous Crystals Few /hpf (None Seen) Urine Bacteria Mod /hpf (None Seen) H Urine Glucose 4+ mg/dL (Normal) H Urine Creatinine 77.85 mg/dL (30.0-125.0) Urine Sodium 24 mmol/L (40-220) L Urine Total Protein 647.5 mg/dL (1-14) H Microbiology Microbiology Date/Time Source Procedure Growth Status 10/14/24 10:43 Blood Blood Culture - Preliminary Resulted Labs and/or images reviewed: Labs reviewed by me, Image(s) reviewed by me Assessment/Plan Assessment/Plan Septic shock with elevated white count altered mental status: Blood cultures Gram-positive cocci in clusters urine cultures pending, continue vancomycin Zosyn Syncope possibly secondary to sepsis: CT head negative, chest x-ray negative, C- spine CT negative, echocardiogram pending carotid ultrasound pending, Neurology consult appreciated cardiology consult by Dr. Diaz appreciated, no further cardiac workup Non STEMI type 2 secondary to sepsis, echo 10/14/2024 shows 55 % ejection fraction Bacteremia due to Gram-positive cocci in clusters: Vancomycin Acute metabolic encephalopathy Elevated D-dimer 5.50: DVT ruled out , V/Q scan ordered Left foot infection chronic for which he is on antibiotics by home health: Consult for Dr. Watts appreciated MRI left foot pending History of left 1st toe amputation Left foot CT shows no osteomyelitis Left knee x-ray negative Hepatomegaly Hypertension Sleep apnea: CPAP Uncontrolled diabetes: Insulin sliding scale Hypercholesterolemia Hypothyroidism History of CVA History of coronary artery disease Moderate malnutrition Time spent 50 minutes Advanced care planning 20 minutes Condition guarded Plan discussed with: Patient My Orders Orders - ROWENA MEREDITH MD Procedure Category Date Status Time Carotid Duplx W Color US 10/14/24 Resulted DOP 12:06 * Neurology Consult CONS 10/14/24 Transmitted 12:09 * Wound Consult CONS 10/14/24 Transmitted *Podiatry Consult CONS 10/14/24 Transmitted Stefanie 12:21 Nm Vq Scan NM 10/15/24 Logged 12:09 Date of Service: Oct 15, 2024 Billing Provider: ROWENA MEREDITH MD Common Visit Codes: [id number] INP/OBS CARE(HIGH) ROWENA MEREDITH MD Oct 15, 2024 09:30
--- NOTE | 2024-10-15 09:59 | DVH ---
EXAM: CT THORACIC SPINE WO CONTRAS HISTORY: Fall, spine injury COMPARISON: CT CT R FOOT WO CONTRAST on DOS: 08/30/23 CTDIvol 38.81 mGy, DLP 1780.6 mGy*cm. TECHNIQUE: Multiple axial CT images of the thoracic spine were obtained. Axial and coronal reformatt ing was done. Bone and soft tissue windows were reviewed. FINDINGS: There is exaggerated thoracic kyphosis . The osseous structures appear demineralized. There is no kathy dence of an acute fracture or dislocation. There are multilevel degenerative disc changes with disc space narrowing and prominent anterior bridg ing marginal osteophytosis. There is no large posterior thoracic disc herniation. There is no spinal canal stenosis. There is no obvious bony foraminal stenosis. There are bilateral pleural effusions with airspace disease versus atelectasis in the posterior lower lobes. IMPRESSION: 1. There is no acute osseous abnormality in the thoracic spine. 2. Exaggerated thoracic kyphosis with multilevel degenerative disc changes. There is no large posteri or classic disc herniation. There is no spinal canal or obvious bony foraminal stenosis. 3. Bilateral pleural effusions with airspace disease versus atelectasis in the posterior lower lobes. HS:Y
[2024-10-15] MEDS: POTASSIUM EFFERVESENT TAB 25 MEQ PO ONE (11:56)
[2024-10-15] MEDS: SODIUM CHLORIDE 0.9% 1,000 ML IV SCH (11:57)
[2024-10-15] MEDS: ASPirin 81 mg TAB PO SCH (12:08)
[2024-10-15] MEDS: HEPARIN SODIUM (PORCINE) 5000 UNITS/ML 1ML VIAL SC SCH (12:09)
--- NOTE | 2024-10-15 12:28 | DVH ---
CLINICAL INFORMATION: 69 years old, Male; Elevated D-dimer rule out pulmonary embolus. TECHNIQUE: 5.3 mCi of Xenon-133 gas was used for the ventilation portion of the exam. Posterior vent ilation imaging was obtained. 5.5 mCi of technetium 99m MAA was used for the perfusion portion of the exam. Imaging was obtained in multiple planes of projection. COMPARISON: [facility] VQ SCAN on DOS: 09/04/23. Chest radiograph dated 10/13/2024. FINDINGS: Perfusion imaging shows no mismatched segmental or subsegmental segmental defects. Ventilation imaging shows no defects. There is normal washout. IMPRESSION: Normal exam. No evidence of pulmonary embolism.
--- NOTE | 2024-10-15 13:00 | DVHPN2 ---
Progress Note - Dictate Date Seen: Oct 15, 2024 Medical Necessity Reason Pt with a Central, PICC or Fol: No Subjective Mr. Escoto is a 69 years old right-handed gentleman with a history of hypertension, diabetes, dyslipidemia, hypothyroidism, kidney stone, obesity, sleep apnea, he was brought to the [facility] on 10/13/2024 with a chief company of syncopal event. I have seen and examined the patient, I have talked to his nurse, and other medical staff, he is doing fine, alert and oriented x3, no new complaints Urinalysis, 10/13/2024: WBC: 4, urine leukocyte esterase: Negative UDS, 10/30/2024: Negative ABG, 10/13/2024, PO2: 70.3 WBC/HB/PLT/MCV, 10/13/2024: 36/12.2/266/78.5 PT/INR/PTT, 10/13/2024: 13.1/1.26/34.4 BUN/CR, 10/14/2024: 46/3.36 D-dimer, 10/13/2024: 5.5 HGB A1c, 10/14/2024: 9.2 Vitamin B12, 10/14/2024: 446 TBI/AST/ALT/AP, 10/14/2024: 1/510/145/125 CT head, 10/13/2024: 1. No acute intracranial abnormality. 2. Mild chronic microvascular ischemic change. 3. Chronic lacunar infarct in the right thalamus 4. Paranasal sinus mucosal thickening and near-complete opacification of the right maxillary sinus. Correlate clinically for acute sinusitis CT TSP, 10/15/24: 1. There is no acute osseous abnormality in the thoracic spine. 2. Exaggerated thoracic kyphosis with multilevel degenerative disc changes. There is no large posterior classic disc herniation. There is no spinal canal or obvious bony foraminal stenosis. 3. Bilateral pleural effusions with airspace disease versus atelectasis in the posterior lower lobes CT, left foot, 10/14/2024: 1. Moderate focal soft tissue swelling in the medial plantar mid/ forefoot at the level of the amputated proximal 1st metatarsal . This could be postoperative or phlegmon. No well-formed fluid collection at this time to suggest abscess. 2. Prior amputation of the 1st digit at the level of the proximal metatarsal. 3. No evidence of acute fracture or osteomyelitis. 4. Moderate degenerative changes of the midfoot with subchondral lucencies and joint space narrowing MRI Head, 09/08/2024: 1. No evidence of acute intracranial pathology. 2. Mild diffuse volume loss with minimal chronic microvascular ischemic disease in the periventricular and deep white matter. 3. Old lacunar infarct in the right thalamus. vital signs Vital Sign Date Time Temp Pulse Resp B/P (MAP) Pulse Ox O2 Delivery O2 Flow Rate FiO2 10/15/24 11:57 100 20 133/73 10/15/24 05:00 98.9 95 98.9 10/14/24 23:16 Nasal BiPAP Mask 50 10/14/24 20:00 10 Total Intake and Output 10/14/24 10/14/24 10/15/24 15:00 23:00 07:00 Intake Total 150 ml 550 ml 1700 ml Output Total 500 ml 350 ml Balance 150 ml 50 ml 1350 ml medications Current Medications Medications Dose Ordered Sig/Olinda Route Start Time Stop Time Status Last Admin Dose Admin Piperacillin Sod/ Tazobactam Sod 100 ml @ 25 mls/hr Q8HR IV 10/14/24 06:00 10/15/24 06:29 25 MLS/HR Vancomycin HCl 0 ml @ 0 mls/hr UD IV 10/13/24 23:30 Atorvastatin Calcium 40 mg HS PO 10/14/24 22:00 10/14/24 21:55 40 MG Amlodipine Besylate 5 mg DAILY PO 10/14/24 10:00 10/15/24 11:56 5 MG Diagnostic Test (Pha) 1 strip Q6HR 10/14/24 00:00 10/15/24 12:21 1 STRIP Insulin Human Regular Q6HR SC 10/14/24 00:00 10/15/24 12:19 3 UNITS Dextrose 50 ml UD PRN IV 10/13/24 23:30 Acetaminophen/ Hydrocodone Bitart 1 tab Q4HP PRN PO 10/13/24 23:30 10/14/24 22:05 1 TAB Ondansetron HCl 4 mg Q4HP PRN IV 10/13/24 23:30 10/15/24 11:56 4 MG Acetaminophen 650 mg Q6HP PRN PO 10/13/24 23:30 10/14/24 12:36 650 MG Nitroglycerin 0.4 mg Q5MINP PRN SL 10/13/24 23:30 Morphine Sulfate 2 mg Q30M PRN IV 10/13/24 23:30 Hold Hydromorphone HCl 0.25 mg Q4HPRN PRN IV 10/14/24 10:30 10/15/24 11:57 0.25 MG Lorazepam 1 mg ONCE PRN IV 10/14/24 20:00 10/17/24 19:59 Aspirin 81 mg DAILY PO 10/15/24 10:00 10/15/24 12:08 81 MG Heparin Sodium (Porcine) 5,000 units Q12HR SC 10/15/24 10:00 10/15/24 12:09 5,000 UNITS Sodium Chloride 1,000 ml @ 60 mls/hr [id number] IV 10/15/24 08:45 10/15/24 11:57 60 MLS/HR objective General: the patient is well developed and nourished. No acute distress. Hammertoes in both feet. Status post left big toe amputation Diffuse tenderness to palpation in the back, extremities MENTAL STATUS: sUBJECTIVE SPEECH, LANGUAGE, HIGHER CORTICAL FUNCTION: no aphasia or dysathria. CRANIAL NERVES: Pupils are equal, round and reactive. EOMs full and conjugate. No nystagmus. Facial sensation intact in all three divisions bilaterally. Mandibular strength intact. Facial muscles symmetrical and strength intact. SENSATION: Sensation to touch and pinprick is diminished distally in the lower extremities, upper extremities, and central portion of the stomach wall. There was no sensory level MOTOR: Normal tone in the upper and lower extremity. Normal muscle bulk. No fasciculations. No abnormal movements or posturing. Muscle strength of the major groups in the upper extremities is 4/5. Muscle strength of the major groups in the lower extremities is: Right two to 3/5, left 2/5. REFLEXES: Deep tendon reflexes are symmetrically diminished. No pathological reflexes. CEREBELLAR/COORDINATION: Finger to nose is five bilaterally bilaterally. GAIT/STATION: deferred. laboratory and microbiology Laboratory Tests 10/15/24 05:26 10/14/24 05:29 Test 10/15/24 05:26 Range/Units Serum Glucose 140 H 74-106 mg/dL Problem List Fall Syncope Stroke Partial complex seizure Chronic stroke Bilateral lower extremity weakness, to rule out thoracic spine myelopathy Sleep apnea Cellulitis Polyneuropathy Assessment/Plan Monitoring Supportive treatment Telemetry EEG MR brain scan MRI T-spine IV antibiotics Aspirin 162 mg daily Lipitor 40 mg daily CPAP the hospital Foot care Daily foot inspection He has been advised not drive until cleared DMV report in the chart More recommendation per clinical course This medical document was created using an electronic medical record system with [employer] dictation system. Although this document has been carefully reviewed, there may still be some phonetic and typographical errors. These areas are purely typographical due to imperfections of the software programs, and do not reflect any compromise in the patient's medical care. Prognosis poor Plan discussed with: Patient, Other Total Time (mins): 40 SOLOMON KRISHNAN MD Oct 15, 2024 13:00
[2024-10-15] MEDS: VANCOMYCIN 500 MG in D5W 5% 100 ML IV ONE (13:36)
--- NOTE | 2024-10-15 14:31 | DVHEEG2 ---
Neurology EEG Procedural Note Procedural Note EXAM DATE: 10/15/24 REFERRING DOCTOR: Dr. Krishnan TECHNIQUE: Eighteen channels of EEG, 2 channels of EOG, and 1 channel of EKG were recorded using the International 10/20 system. CLINICAL DATA: The patient was referred for an EEG evaluation for the evidence of seizure disorder. MEDICATIONS: See the chart BACKGROUND ACTIVITY: There was a lot of artifacts in the recording, the back grand activity appeared to be well regulated 9 Hz rhythmic waveforms, symmetrically distributed over both posterior quadrants and was reactive to external stimuli ACTIVATION: Hyperventilation: Not done Photic Stimulation: Not down Sleep: Not see it IMPRESSION: This is an essentially normal EEG. No focal, lateralized, or epileptiform features are noted. If clinically indicated to rule out a seizure disorder, recommend repeat EEG with sleep deprivation. The EKG channel showed an irregular heart rate of 90 per [place] [address] SOLOMON KRISHNAN MD Oct 15, 2024 14:31
--- NOTE | 2024-10-15 15:03 | DVHPN2 ---
Progress Note - Dictate Date Seen: Oct 15, 2024 Medical Necessity Reason Pt with a Central, PICC or Fol: Yes The following are medically ne: [place]ina Catheter Subjective worsening renal function vital signs Vital Sign Date Time Temp Pulse Resp B/P (MAP) Pulse Ox O2 Delivery O2 Flow Rate FiO2 10/15/24 13:32 95 18 122/59 10/15/24 09:00 99.0 90 99.0 10/15/24 08:00 Oxymizer 10 N/A Total Intake and Output 10/14/24 10/14/24 10/15/24 15:00 23:00 07:00 Intake Total 150 ml 550 ml 1700 ml Output Total 500 ml 350 ml Balance 150 ml 50 ml 1350 ml medications Current Medications Medications Dose Ordered Sig/Olinda Route Start Time Stop Time Status Last Admin Dose Admin Piperacillin Sod/ Tazobactam Sod 100 ml @ 25 mls/hr Q8HR IV 10/14/24 06:00 10/15/24 14:47 25 MLS/HR Vancomycin HCl 0 ml @ 0 mls/hr UD IV 10/13/24 23:30 Atorvastatin Calcium 40 mg HS PO 10/14/24 22:00 10/14/24 21:55 40 MG Amlodipine Besylate 5 mg DAILY PO 10/14/24 10:00 10/15/24 11:56 5 MG Diagnostic Test (Pha) 1 strip Q6HR 10/14/24 00:00 10/15/24 12:21 1 STRIP Insulin Human Regular Q6HR SC 10/14/24 00:00 10/15/24 12:19 3 UNITS Dextrose 50 ml UD PRN IV 10/13/24 23:30 Acetaminophen/ Hydrocodone Bitart 1 tab Q4HP PRN PO 10/13/24 23:30 10/14/24 22:05 1 TAB Ondansetron HCl 4 mg Q4HP PRN IV 10/13/24 23:30 10/15/24 11:56 4 MG Acetaminophen 650 mg Q6HP PRN PO 10/13/24 23:30 10/14/24 12:36 650 MG Nitroglycerin 0.4 mg Q5MINP PRN SL 10/13/24 23:30 Morphine Sulfate 2 mg Q30M PRN IV 10/13/24 23:30 Hold Hydromorphone HCl 0.25 mg Q4HPRN PRN IV 10/14/24 10:30 10/15/24 11:57 0.25 MG Lorazepam 1 mg ONCE PRN IV 10/14/24 20:00 10/17/24 19:59 Aspirin 81 mg DAILY PO 10/15/24 10:00 10/15/24 12:08 81 MG Heparin Sodium (Porcine) 5,000 units Q12HR SC 10/15/24 10:00 10/15/24 12:09 5,000 UNITS Sodium Chloride 1,000 ml @ 60 mls/hr [id number] IV 10/15/24 08:45 10/15/24 11:57 60 MLS/HR objective Morbidly obese white male Breathing with high-flow oxygen Mild distress with shortness of breath Abdomen is soft Large and distended Bilateral 1+ pitting edema Left toe amputations with wound wrapped in gauze laboratory and microbiology Laboratory Tests 10/15/24 05:26 10/14/24 05:29 Test 10/15/24 05:26 Range/Units Serum Glucose 140 H 74-106 mg/dL Assessment/Plan Acute kidney injury hemodynamically mediated; multifactorial Baseline renal function is normal Sepsis due to bacteremia; STaph Urinary tract infection Rule out bacteremia and wound infection Syncope Obstructive sleep apnea Ultrasound of the kidney was unremarkable Recommend evaluation of patient's lower extremity wound Cultures and antibiotics , echo does not report vegetations Avoid hypotension Recommend mean arterial pressure greater than 65 IV albumin IV diuretic challenge dose today guarded renal prognosis due to rapid renal function loss Plan discussed with: Patient RAJENDRA SHANNON MD Oct 15, 2024 15:03
--- NOTE | 2024-10-15 16:06 | DVH ---
CLINICAL HISTORY: OSTEOMYELITIS TECHNIQUE: Multi sequence multi planar MRI images of the left midfoot and forefoot were obtained wit hout IV contrast. COMPARISON: CT CT L FOOT WO CONTRAST on DOS: 10/13/24, CT CT L FOOT WO CONTRAST on DOS: 08/30/23, CT C T R FOOT WO CONTRAST on DOS: 08/30/23 FINDINGS: Postsurgical changes of prior amputation of the 1st digit at the level of the 1st metatars al base. There is a wound at the plantar medial aspect of the amputation stump with adjacent soft tis luciana inflammatory changes, likely cellulitis. Artifact from surgical clips seen at the amputation stum p. No organized fluid collection identified to suggest abscess. No evidence of osteomyelitis. Promine nt cortical deformities are seen at the articular surfaces of the tarsometatarsal joints, may be seen with neuropathic arthropathy. There is medial subluxation of the 2nd digit proximal phalanx with res pect to the 2nd metatarsal head up to 3.5 mm. There is cortical deformity with flattening of the 2nd metatarsal head, similar in appearance compared to the recent CT. There is marked fatty atrophy of th e intrinsic musculature of the forefoot. IMPRESSION: 1. Wound at the 1st metatarsal amputation stump with associated soft tissue inflammatory changes, pos sibly cellulitis in the appropriate clinical setting. No visualized abscess. No evidence of osteomye litis. 2. Additional findings as detailed above.
[2024-10-15] MEDS: FUROSEMIDE 100 MG/10ML VIAL IV ONE (16:37)
--- NOTE | 2024-10-15 17:40 | DVH ---
CHEST RADIOGRAPH Indication:SOB Technique: Single frontal view of the chest was obtained Comparison: XY CHEST PORTABLE on DOS: 10/13/24, XY CHEST PORTABLE on DOS: 09/01/23, XY CHEST PORTABLE on DOS: 08/31/23 FINDINGS: Lines and Tubes: None Lungs: No focal consolidation. Pleura: No effusion. No pneumothorax. Cardiomediastinal contours: Unremarkable Bones: No acute osseous abnormality. IMPRESSION: 1. No acute cardiopulmonary disease. 2. No significant change from 10/13/2024.
[2024-10-16] VITALS (9 sets, daily range): BP systolic 93–143; BP diastolic 49–69; PULSE 82–101; RESP 16–21; TEMP 98.8–99.2; O2SAT 87–98
[2024-10-16 07:10] LABS: Alanine Aminotransferase 161 U/L (7-40); Albumin 3.5 g/dL (3.2-4.8); Alkaline Phosphatase 191 U/L (46-116); Anion Gap 17 (5-15); Aspartate Aminotransferase 237 U/L (13-40); BUN/Creatinine Ratio 9.8 (10.0-20.0); Bilirubin, Total 0.6 mg/dL (0.2-1.0); Blood Urea Nitrogen 68 mg/dL (9-23); Calcium 8.4 mg/dL (8.7-10.4); Carbon Dioxide 16 mmol/L (20-31); Chloride 97 mmol/L (98-107); Glucose 208 mg/dL (74-106); Potassium 3.9 mmol/L (3.5-5.1); Sodium 130 mmol/L (136-145); Total Protein 6.8 g/dL (5.7-8.2)
[2024-10-16 08:06] LABS: Complement C3 155 mg/dL (82-167)
[2024-10-16] MEDS: FUROSEMIDE 100 MG/10ML VIAL IV SCH (08:50)
--- NOTE | 2024-10-16 09:43 | DVHPN2 ---
Reviewed: Care Plan, H&P, Labs, Medications, Previous Orders, Radiology Changes from previous H/P or p: No Changes Objective Vitals Vital Signs Date Time Temp Pulse Resp B/P (MAP) Pulse Ox O2 Delivery O2 Flow Rate FiO2 10/16/24 08:50 96/59 10/16/24 08:50 84 20 10/16/24 05:00 98.9 87 98.9 10/15/24 20:00 Oxymizer 10 N/A Intake/Output Intake and Output 10/16/24 07:00 Intake Total 1480 ml Output Total 1050 ml Balance 430 ml Intake Oral 850 ml IV Total 630 ml Output Urine Total 1050 ml Medications Current Medications Medications Dose Ordered Sig/Olinda Route Start Time Stop Time Status Last Admin Dose Admin Piperacillin Sod/ Tazobactam Sod 100 ml @ 25 mls/hr Q8HR IV 10/14/24 06:00 10/16/24 05:10 25 MLS/HR Vancomycin HCl 0 ml @ 0 mls/hr UD IV 10/13/24 23:30 Atorvastatin Calcium 40 mg HS PO 10/14/24 22:00 10/15/24 22:14 40 MG Amlodipine Besylate 5 mg DAILY PO 10/14/24 10:00 10/16/24 08:04 5 MG Diagnostic Test (Pha) 1 strip Q6HR 10/14/24 00:00 10/16/24 05:18 1 STRIP Insulin Human Regular Q6HR SC 10/14/24 00:00 10/16/24 05:20 4 UNITS Dextrose 50 ml UD PRN IV 10/13/24 23:30 Acetaminophen/ Hydrocodone Bitart 1 tab Q4HP PRN PO 10/13/24 23:30 10/14/24 22:05 1 TAB Ondansetron HCl 4 mg Q4HP PRN IV 10/13/24 23:30 10/16/24 00:26 4 MG Acetaminophen 650 mg Q6HP PRN PO 10/13/24 23:30 10/14/24 12:36 650 MG Nitroglycerin 0.4 mg Q5MINP PRN SL 10/13/24 23:30 Morphine Sulfate 2 mg Q30M PRN IV 10/13/24 23:30 Hold Hydromorphone HCl 0.25 mg Q4HPRN PRN IV 10/14/24 10:30 10/16/24 08:50 0.25 MG Lorazepam 1 mg ONCE PRN IV 10/14/24 20:00 10/17/24 19:59 Aspirin 81 mg DAILY PO 10/15/24 10:00 10/16/24 08:04 81 MG Heparin Sodium (Porcine) 5,000 units Q12HR SC 10/15/24 10:00 10/16/24 08:03 5,000 UNITS Sodium Bicarbonate 150 ml/Dextrose 1,150 ml @ 75 mls/hr [id number] IV 10/16/24 07:30 Furosemide 80 mg BIDD IV 10/16/24 07:30 10/16/24 08:50 80 MG Laboratory Results Laboratory Tests 10/14/24 05:29 10/16/24 05:08 Chemistry Test 10/16/24 05:08 Albumin 3.5 g/dL (3.2-4.8) Calcium Level 8.4 mg/dL (8.7-10.4) L Total Protein 6.8 g/dL (5.7-8.2) LFT Test 10/16/24 05:08 Alanine Aminotransferase (ALT) 161 U/L (7-40) H Alkaline Phosphatase 191 U/L (46-116) H Aspartate Amino Transferase (AST) 237 U/L (13-40) H Total Bilirubin 0.6 mg/dL (0.2-1.0) Urinalysis Test 10/13/24 22:00 10/14/24 17:27 Urine Color Yellow (Yellow) Urine Clarity Turbid (Clear) H Urine pH 6.0 (5.0-9.0) Urine Specific [place] 1.020 (1.001-1.035) Urine Protein 3+ (Negative) H Urine Ketones Negative (Negative) Urine Blood 3+ /uL (Negative) H Urine Nitrite Negative (Negative) Urine Bilirubin Negative (Negative) Urine Urobilinogen Normal mg/dL (Negative) Urine Leukocyte Esterase Negative /uL (Negative) Urine RBC 2 /hpf (0 - 3) Urine WBC 4 /hpf (0 - 3) Urine Squamous Epithelial Cells Few /hpf (<5) Urine Amorphous Crystals Few /hpf (None Seen) Urine Bacteria Mod /hpf (None Seen) H Urine Glucose 4+ mg/dL (Normal) H Urine Creatinine 77.85 mg/dL (30.0-125.0) Urine Sodium 24 mmol/L (40-220) L Urine Total Protein 647.5 mg/dL (1-14) H Microbiology Microbiology Date/Time Source Procedure Growth Status 10/14/24 10:43 Blood Blood Culture - Preliminary Staphylococcus aureus Resulted 10/13/24 23:15 Foot Left Gram Stain - Final Resulted 10/13/24 23:15 Foot Left Wound Culture - Preliminary Resulted 10/13/24 22:00 Voided Urine Urine Culture - Preliminary Resulted Labs and/or images reviewed: Labs reviewed by me, Image(s) reviewed by me Assessment/Plan Assessment/Plan Septic shock with elevated white count altered mental status: Blood cultures Gram-positive cocci in clusters urine cultures pending, continue vancomycin Zosyn Syncope possibly secondary to sepsis: CT head negative, chest x-ray negative, C- spine CT negative, echocardiogram 55 percent ejection fraction, carotid ultrasound pending, Neurology consult appreciated EEG normal, MRI brain pending, Cardiology consult by Dr. Diaz appreciated, no further cardiac workup Non STEMI type 2 secondary to sepsis, echo 10/14/2024 shows 55 % ejection fraction Acute kidney injury hemodynamically mediated; multifactorial, BUN creatinine 44 and 2.61 at the time of admission, now worsening 68/6.94, closely following Bacteremia due to Gram-positive cocci in clusters: Vancomycin Acute metabolic encephalopathy Elevated D-dimer 5.50: DVT ruled out , PE ruled out Chronic Left foot infection for which he is on antibiotics by home health: Consult for Dr. Watts appreciated, MRI left foot shows no osteomyelitis of the 1st metatarsal stump or abscess History of left 1st toe amputation Left foot CT shows no osteomyelitis Left knee x-ray negative Hepatomegaly Hypertension Sleep apnea: CPAP Uncontrolled diabetes: Insulin sliding scale Hypercholesterolemia Hypothyroidism History of CVA History of coronary artery disease Moderate malnutrition Pain management: Patient says [place] is not working. We will start Dilaudid 2 mg IV q.4 hours and DC [place] Time spent 50 minutes Advanced care planning 20 minutes Condition guarded Plan discussed with: Patient My Orders Orders - ROWENA MEREDITH MD Procedure Category Date Status Time Apply/Change Dressing TYLOR 10/15/24 In Process 12:00 Date of Service: Oct 16, 2024 Billing Provider: ROWENA MEREDITH MD Common Visit Codes: [id number] CARE 30-74 MIN ROWENA MEREDITH MD Oct 16, 2024 09:43
[2024-10-16 10:07] LABS: Basophils # (auto) 0 10 ^3/uL (0-0.2); Basophils % (auto) 0.3 % (0.0-2.0); Eosinophils # (auto) 0 10 ^3/uL (0-0.8); Eosinophils % (auto) 0.3 % (0.0-7.0); Hematocrit 30.4 % (41.0-53.0); Hemoglobin 10.3 g/dL (13.5-17.5); Lymphocytes # (auto) 0.6 10 ^3/uL (0.4-5.4); Lymphocytes % (auto) 5.6 % (10.0-50.0); Mean Corpuscular Hemoglobin 26.5 pg (28.0-32.0); Monocytes # (auto) 0.7 10 ^3/uL (0-1.3); Monocytes % (auto) 6.4 % (0.0-12.0); Neutrophils # (auto) 9.1 10 ^3/uL (1.6-8.6); Neutrophils % (auto) 87.4 % (37.0-80.0); Platelet Count (auto) 148 10^3/uL (140-450); Red Cell Distribution Width 18.3 % (11.8-14.3); White Blood Cell 10.4 10^3/uL (4.4-10.8)
[2024-10-16] MEDS: SODIUM BICARB 50mEq/50ml Vial 150 ML in D5W 5% 1,000 ML IV SCH (11:44)
[2024-10-16] MEDS: HYDROmorphone HCL 2 MG/ML VL/or syr IV PRN (11:45)
--- NOTE | 2024-10-16 11:57 | DVHNC2 ---
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 Indication: Hypotension Room prepared for procedure: Yes Credit Card Control Clerk performed hand hygien: Yes Maximal sterile barrier precau: Mask/Eye shield, Sterile gown Skin Preparation: Chlorhexidine gluconate, Providine iodine Skin preparation completely dr: Yes Insertion site: Right, Internal jugular Central line catheter type: Dialysis non-tunneled Number of lumens: 2 Antiseptic ointment applied to: Yes Post Assessment: Chest X-Ray Date of Service: Oct 16, 2024 Billing Provider: JESUS HENRY MD Common Visit Codes: [id number] INP/OBS CARE (HIGH) Secondary Visit Codes: [id number] STANDBY SERVICE Consultation Codes: [id number] CONSULT <45MIN Procedure Codes: 40069-[id number] NON-TUNNEL CV CATH JESUS HENRY MD Oct 16, 2024 11:57
[2024-10-16 12:06] LABS: Anti-Centromere B Antibody <0.2 AI (0.0-0.9); Anti-Jo-1 Antibody <0.2 AI (0.0-0.9); Anti-dsDNA Antibody <1 IU/mL (0-9); Antichromatin Antibody 0.7 AI (0.0-0.9); Antiscleroderma-70 Antibody <0.2 AI (0.0-0.9); RNP Antibody 0.3 AI (0.0-0.9); Sjogren's Anti-SS-A Antibody <0.2 AI (0.0-0.9); Sjogren's Anti-SS-B Antibody <0.2 AI (0.0-0.9); Smith Antibody <0.2 AI (0.0-0.9)
--- NOTE | 2024-10-16 12:55 | DVH ---
CLINICAL INFORMATION: 69 years old, Male; s/p dialysis cath placement. TECHNIQUE: Single AP portable chest radiograph was obtained. COMPARISON: XY CHEST XRAY 1 VIEW on DOS: 10/15/24, XY CHEST PORTABLE on DOS: 10/13/24, XY CHEST JOSE ANTONIO BLE on DOS: 09/01/23 FINDINGS: Interval placement of a right internal jugular dialysis catheter, which reaches the proximal SVC near the confluence of the brachiocephalic veins. No pneumothorax. Bilateral mild to moderate interstitia l opacities. Unchanged cardiomegaly and prominence of the pulmonary vasculature. No other significan t interval change. IMPRESSION: 1. Distal tip of the right internal jugular dialysis catheter is at the level of the proximal SVC kb r the confluence of the brachiocephalic veins. 2. Bilateral interstitial opacities may be due to interstitial pulmonary edema. Cardiomegaly and prom inence of the pulmonary vasculature also noted. 3. No pneumothorax.
--- NOTE | 2024-10-16 13:24 | DVHPN2 ---
Progress Note - Dictate Date Seen: Oct 16, 2024 Medical Necessity Reason Pt with a Central, PICC or Fol: Yes The following are medically ne: [place] Catheter Subjective worsening renal function discussed risk and benefits of HD agreed to catheter placement vital signs Vital Sign Date Time Temp Pulse Resp B/P (MAP) Pulse Ox O2 Delivery O2 Flow Rate FiO2 10/16/24 12:29 91 108/67 (81) 10/16/24 11:45 20 10/16/24 09:00 98.8 98 98.8 10/15/24 20:00 Oxymizer 10 N/A Total Intake and Output 10/15/24 10/15/24 10/16/24 15:00 23:00 07:00 Intake Total 250 ml 630 ml 600 ml Output Total 300 ml 750 ml Balance 250 ml 330 ml -150 ml medications Current Medications Medications Dose Ordered Sig/Olinda Route Start Time Stop Time Status Last Admin Dose Admin Piperacillin Sod/ Tazobactam Sod 100 ml @ 25 mls/hr Q8HR IV 10/14/24 06:00 10/16/24 05:10 25 MLS/HR Vancomycin HCl 0 ml @ 0 mls/hr UD IV 10/13/24 23:30 Atorvastatin Calcium 40 mg HS PO 10/14/24 22:00 10/15/24 22:14 40 MG Amlodipine Besylate 5 mg DAILY PO 10/14/24 10:00 10/16/24 08:04 5 MG Diagnostic Test (Pha) 1 strip Q6HR 10/14/24 00:00 10/16/24 11:44 1 STRIP Insulin Human Regular Q6HR SC 10/14/24 00:00 10/16/24 11:58 6 UNITS Dextrose 50 ml UD PRN IV 10/13/24 23:30 Ondansetron HCl 4 mg Q4HP PRN IV 10/13/24 23:30 10/16/24 00:26 4 MG Acetaminophen 650 mg Q6HP PRN PO 10/13/24 23:30 10/14/24 12:36 650 MG Nitroglycerin 0.4 mg Q5MINP PRN SL 10/13/24 23:30 Morphine Sulfate 2 mg Q30M PRN IV 10/13/24 23:30 Hold Lorazepam 1 mg ONCE PRN IV 10/14/24 20:00 10/17/24 19:59 Aspirin 81 mg DAILY PO 10/15/24 10:00 10/16/24 08:04 81 MG Heparin Sodium (Porcine) 5,000 units Q12HR SC 10/15/24 10:00 10/16/24 08:03 5,000 UNITS Sodium Bicarbonate 150 ml/Dextrose 1,150 ml @ 75 mls/hr [id number] IV 10/16/24 07:30 10/16/24 11:44 75 MLS/HR Furosemide 80 mg BIDD IV 10/16/24 07:30 10/16/24 08:50 80 MG Hydromorphone HCl 2 mg Q4HPRN PRN IV 10/16/24 10:00 10/16/24 11:45 2 MG objective Morbidly obese white male Breathing with high-flow oxygen Mild distress with shortness of breath Abdomen is soft Large and distended Bilateral 1+ pitting edema Left toe amputations with wound wrapped in gauze laboratory and microbiology Laboratory Tests 10/16/24 09:27 10/16/24 05:08 Test 10/16/24 05:08 Range/Units Serum Glucose 208 H 74-106 mg/dL Assessment/Plan Acute kidney injury hemodynamically mediated; multifactorial Baseline renal function is normal Sepsis due to bacteremia; STaph Urinary tract infection Rule out bacteremia and wound infection Syncope Obstructive sleep apnea Hd treatment today after catheter placement Ultrasound of the kidney was unremarkable Recommend evaluation of patient's lower extremity wound Cultures and antibiotics , echo does not report vegetations Avoid hypotension Recommend mean arterial pressure greater than 65 IV albumin Plan discussed with: Patient RAJENDRA SHANNON MD Oct 16, 2024 13:24
[2024-10-16] MEDS: VANCOMYCIN 500 MG in D5W 5% 100 ML IV ONE (20:00)
[2024-10-16] MEDS: VANCOMYCIN 1 GM/200 ML IV ONE (20:53)
[2024-10-17] VITALS (9 sets, daily range): BP systolic 113–153; BP diastolic 52–80; PULSE 88–102; RESP 17–22; TEMP 98–99.2; O2SAT 85–98
[2024-10-17 06:35] LABS: Basophils # (auto) 0 10 ^3/uL (0-0.2); Eosinophils # (auto) 0.1 10 ^3/uL (0-0.8); Eosinophils % (auto) 0.8 % (0.0-7.0); Lymphocytes # (auto) 0.7 10 ^3/uL (0.4-5.4); Monocytes # (auto) 0.9 10 ^3/uL (0-1.3); Nucleated Red Blood Cells % 0.1 %; White Blood Cell 12.2 10^3/uL (4.4-10.8)
[2024-10-17 06:37] LABS: Basophils % (auto) 0.1 % (0.0-2.0); Hematocrit 30.3 % (41.0-53.0); Hemoglobin 10.2 g/dL (13.5-17.5); Mean Corpuscular Hemoglobin 26.2 pg (28.0-32.0); Mean Corpuscular Hgb Conc. 33.6 g/dL (32.0-36.0); Monocytes % (auto) 7.6 % (0.0-12.0); Neutrophils # (auto) 10.4 10 ^3/uL (1.6-8.6); Neutrophils % (auto) 85.5 % (37.0-80.0); Platelet Count (auto) 150 10^3/uL (140-450); Red Blood Cells 3.89 10^6/uL (4.5-5.90); Red Cell Distribution Width 17.6 % (11.8-14.3)
[2024-10-17 07:18] LABS: Chloride 95 mmol/L (98-107); Potassium 3.6 mmol/L (3.5-5.1); Sodium 133 mmol/L (136-145)
[2024-10-17 07:19] LABS: Anion Gap 14 (5-15); Calcium 8.6 mg/dL (8.7-10.4); Carbon Dioxide 24 mmol/L (20-31)
[2024-10-17 07:24] LABS: BUN/Creatinine Ratio 10.5 (10.0-20.0); Blood Urea Nitrogen 70 mg/dL (9-23); Glucose 247 mg/dL (74-106)
--- NOTE | 2024-10-17 08:34 | DVHPN2 ---
Reviewed: Care Plan, H&P, Labs, Medications, Previous Orders, Radiology Changes from previous H/P or p: No Changes Objective Vitals Vital Signs Date Time Temp Pulse Resp B/P (MAP) Pulse Ox O2 Delivery O2 Flow Rate FiO2 10/17/24 05:18 143/62 10/17/24 05:09 98 19 10/17/24 05:00 99.1 88 99.1 10/16/24 20:00 Oxymizer 10 N/A Intake/Output Intake and Output 10/17/24 07:00 Intake Total 3275 ml Output Total 750 ml Balance 2525 ml Intake Oral 1550 ml IV Total 1725 ml Output Urine Total 750 ml Medications Current Medications Medications Dose Ordered Sig/Olinda Route Start Time Stop Time Status Last Admin Dose Admin Piperacillin Sod/ Tazobactam Sod 100 ml @ 25 mls/hr Q8HR IV 10/14/24 06:00 10/17/24 05:23 25 MLS/HR Vancomycin HCl 0 ml @ 0 mls/hr UD IV 10/13/24 23:30 Atorvastatin Calcium 40 mg HS PO 10/14/24 22:00 10/16/24 21:16 40 MG Amlodipine Besylate 5 mg DAILY PO 10/14/24 10:00 10/16/24 08:04 5 MG Diagnostic Test (Pha) 1 strip Q6HR 10/14/24 00:00 10/17/24 06:12 1 STRIP Insulin Human Regular Q6HR SC 10/14/24 00:00 10/17/24 06:13 4 UNITS Dextrose 50 ml UD PRN IV 10/13/24 23:30 Ondansetron HCl 4 mg Q4HP PRN IV 10/13/24 23:30 10/16/24 18:18 4 MG Acetaminophen 650 mg Q6HP PRN PO 10/13/24 23:30 10/14/24 12:36 650 MG Nitroglycerin 0.4 mg Q5MINP PRN SL 10/13/24 23:30 Morphine Sulfate 2 mg Q30M PRN IV 10/13/24 23:30 Hold Lorazepam 1 mg ONCE PRN IV 10/14/24 20:00 10/17/24 19:59 Aspirin 81 mg DAILY PO 10/15/24 10:00 10/16/24 08:04 81 MG Heparin Sodium (Porcine) 5,000 units Q12HR SC 10/15/24 10:00 10/16/24 21:17 5,000 UNITS Sodium Bicarbonate 150 ml/Dextrose 1,150 ml @ 75 mls/hr [id number] IV 10/16/24 07:30 10/17/24 04:48 75 MLS/HR Furosemide 80 mg BIDD IV 10/16/24 07:30 10/17/24 05:18 80 MG Hydromorphone HCl 2 mg Q4HPRN PRN IV 10/16/24 10:00 10/17/24 04:39 2 MG Laboratory Results Laboratory Tests 10/17/24 05:36 Chemistry Test 10/17/24 05:36 Calcium Level 8.6 mg/dL (8.7-10.4) L Urinalysis Test 10/13/24 22:00 10/14/24 17:27 Urine Color Yellow (Yellow) Urine Clarity Turbid (Clear) H Urine pH 6.0 (5.0-9.0) Urine Specific [place] 1.020 (1.001-1.035) Urine Protein 3+ (Negative) H Urine Ketones Negative (Negative) Urine Blood 3+ /uL (Negative) H Urine Nitrite Negative (Negative) Urine Bilirubin Negative (Negative) Urine Urobilinogen Normal mg/dL (Negative) Urine Leukocyte Esterase Negative /uL (Negative) Urine RBC 2 /hpf (0 - 3) Urine WBC 4 /hpf (0 - 3) Urine Squamous Epithelial Cells Few /hpf (<5) Urine Amorphous Crystals Few /hpf (None Seen) Urine Bacteria Mod /hpf (None Seen) H Urine Glucose 4+ mg/dL (Normal) H Urine Creatinine 77.85 mg/dL (30.0-125.0) Urine Sodium 24 mmol/L (40-220) L Urine Total Protein 647.5 mg/dL (1-14) H Microbiology Microbiology Date/Time Source Procedure Growth Status 10/15/24 13:47 Nose MRSA Screen - Final Complete 10/14/24 10:43 Blood Blood Culture - Preliminary Staphylococcus aureus Resulted 10/13/24 22:00 Voided Urine Urine Culture - Final Complete Labs and/or images reviewed: Labs reviewed by me, Image(s) reviewed by me Assessment/Plan Assessment/Plan Septic shock with elevated white count altered mental status: Blood cultures Gram-positive cocci in clusters urine cultures pending, continue vancomycin Zosyn Syncope possibly secondary to sepsis: CT head negative, chest x-ray negative, C- spine CT negative, echocardiogram 55 percent ejection fraction, carotid ultrasound pending, Neurology consult appreciated EEG normal, MRI brain pending, Cardiology consult by Dr. Diaz appreciated, no further cardiac workup Non STEMI type 2 secondary to sepsis, echo 10/14/2024 shows 55 % ejection fraction Acute kidney injury hemodynamically mediated; multifactorial, BUN creatinine 44 and 2.61 at the time of admission, now worsening 68/6.94, closely following, patient received hemodialysis on 10/16/2024 Bacteremia due to Gram-positive cocci in clusters: Vancomycin Acute metabolic encephalopathy Elevated D-dimer 5.50: DVT ruled out , PE ruled out Chronic Left foot infection for which he is on antibiotics by home health: Consult for Dr. Watts appreciated, MRI left foot shows no osteomyelitis of the 1st metatarsal stump or abscess History of left 1st toe amputation CT left foot shows no osteomyelitis Left knee x-ray negative Hepatomegaly Hypertension Obstructive Sleep apnea: CPAP Uncontrolled diabetes: Insulin sliding scale Hypercholesterolemia Hypothyroidism History of CVA Chronic calcaneal fracture right foot History of coronary artery disease Diabetic medial left foot ulcer: Wound consult, wound cultures Right IJ dialysis cath in place Moderate malnutrition Pain management: Patient says [employer] [place] is not working. We will start Dilaudid 2 mg IV q.4 hours and DC [place] Time spent 65 minutes Advanced care planning 20 minutes Condition guarded Plan discussed with: Patient My Orders Orders - ROWENA MEREDITH MD Procedure Category Date Status Time Hydromorphone PHA 10/16/24 In Process Injection (Dilaudid 10:00 Date of Service: Oct 17, 2024 Billing Provider: ROWENA MEREDITH MD Common Visit Codes: [id number] CARE 30-74 MIN ROWENA MEREDITH MD Oct 17, 2024 08:34
--- NOTE | 2024-10-17 15:16 | DVHPN2 ---
Progress Note - Dictate Date Seen: Oct 17, 2024 Medical Necessity Reason Pt with a Central, PICC or Fol: Yes The following are medically ne: [place] Catheter Subjective s/p HD yesterday vital signs Vital Sign Date Time Temp Pulse Resp B/P (MAP) Pulse Ox O2 Delivery O2 Flow Rate FiO2 10/17/24 13:00 98.6 102 20 113/71 (85) 92 98.6 10/17/24 08:00 Oxymizer 10 N/A Total Intake and Output 10/16/24 10/16/24 10/17/24 15:00 23:00 07:00 Intake Total 100 ml 1275 ml 1900 ml Output Total 750 ml Balance 100 ml 1275 ml 1150 ml medications Current Medications Medications Dose Ordered Sig/Olinda Route Start Time Stop Time Status Last Admin Dose Admin Piperacillin Sod/ Tazobactam Sod 100 ml @ 25 mls/hr Q8HR IV 10/14/24 06:00 10/17/24 14:24 25 MLS/HR Vancomycin HCl 0 ml @ 0 mls/hr UD IV 10/13/24 23:30 Atorvastatin Calcium 40 mg HS PO 10/14/24 22:00 10/16/24 21:16 40 MG Amlodipine Besylate 5 mg DAILY PO 10/14/24 10:00 10/17/24 09:42 5 MG Diagnostic Test (Pha) 1 strip Q6HR 10/14/24 00:00 10/17/24 11:07 1 STRIP Insulin Human Regular Q6HR SC 10/14/24 00:00 10/17/24 11:09 4 UNITS Dextrose 50 ml UD PRN IV 10/13/24 23:30 Ondansetron HCl 4 mg Q4HP PRN IV 10/13/24 23:30 10/16/24 18:18 4 MG Acetaminophen 650 mg Q6HP PRN PO 10/13/24 23:30 10/14/24 12:36 650 MG Nitroglycerin 0.4 mg Q5MINP PRN SL 10/13/24 23:30 Morphine Sulfate 2 mg Q30M PRN IV 10/13/24 23:30 Hold Lorazepam 1 mg ONCE PRN IV 10/14/24 20:00 10/17/24 19:59 Aspirin 81 mg DAILY PO 10/15/24 10:00 10/17/24 09:42 81 MG Heparin Sodium (Porcine) 5,000 units Q12HR SC 10/15/24 10:00 10/17/24 09:42 5,000 UNITS Sodium Bicarbonate 150 ml/Dextrose 1,150 ml @ 75 mls/hr [id number] IV 10/16/24 07:30 10/17/24 04:48 75 MLS/HR Furosemide 80 mg BIDD IV 10/16/24 07:30 10/17/24 05:18 80 MG Hydromorphone HCl 2 mg Q4HPRN PRN IV 10/17/24 13:15 UNV objective Morbidly obese white male Breathing with high-flow oxygen Mild distress with shortness of breath Abdomen is soft Large and distended Bilateral 1+ pitting edema Left toe amputations with wound wrapped in gauze laboratory and microbiology Laboratory Tests 10/17/24 05:36 Test 10/17/24 05:36 Range/Units Serum Glucose 247 H 74-106 mg/dL Assessment/Plan Acute kidney injury hemodynamically mediated; multifactorial Baseline renal function is normal Sepsis due to bacteremia; STaph Urinary tract infection Syncope Obstructive sleep apnea severe proteinuria likely due to Dm2 EF 55% grade 1 diatolic DC bicarb drip continue lasix Hd treatment Ultrasound of the kidney was unremarkable Cultures and antibiotics , echo does not report vegetations complement levels and serologies are now. Given rapid renal function decline consider renal biopsy Avoid hypotension Recommend mean arterial pressure greater than 65 Dietary Evaluation Review Comments: 1. Consider adding nephrovite 2. Consider adding renal to diet restrictions 3. Consider adding Nepro shake if pt with low PO intake Expected Outcomes/Goals: 1. Pt will consume >75% of estimated needs within 3-5 days Plan discussed with: Patient RAJENDRA SHANNON MD Oct 17, 2024 15:16
[2024-10-17] MEDS: LACTULOSE 20Gm/30ML SOLN PO ONE (15:45)
[2024-10-17] MEDS: HYDROmorphone HCL 2 MG/ML VL/or syr IV PRN (15:46)
[2024-10-18] VITALS (8 sets, daily range): BP systolic 130–167; BP diastolic 65–82; PULSE 76–101; RESP 16–23; TEMP 97.5–98.6; O2SAT 87–95
[2024-10-18 06:35] LABS: Basophils # (auto) 0 10 ^3/uL (0-0.2); Lymphocytes # (auto) 1.1 10 ^3/uL (0.4-5.4); Monocytes # (auto) 0.9 10 ^3/uL (0-1.3); Nucleated Red Blood Cells % 0.1 %
[2024-10-18 06:38] LABS: Basophils % (auto) 0.3 % (0.0-2.0); Eosinophils # (auto) 0.4 10 ^3/uL (0-0.8); Eosinophils % (auto) 2.7 % (0.0-7.0); Hematocrit 29.7 % (41.0-53.0); Hemoglobin 9.9 g/dL (13.5-17.5); Lymphocytes % (auto) 8.3 % (10.0-50.0); Mean Corpuscular Hemoglobin 26.2 pg (28.0-32.0); Mean Corpuscular Hgb Conc. 33.1 g/dL (32.0-36.0); Mean Corpuscular Volume 79.2 fL (80.0-100.0); Monocytes % (auto) 6.6 % (0.0-12.0); Neutrophils # (auto) 10.9 10 ^3/uL (1.6-8.6); Neutrophils % (auto) 82.1 % (37.0-80.0); Platelet Count (auto) 170 10^3/uL (140-450); Red Blood Cells 3.76 10^6/uL (4.5-5.90); Red Cell Distribution Width 17.8 % (11.8-14.3); White Blood Cell 13.3 10^3/uL (4.4-10.8)
[2024-10-18 06:43] LABS: Anion Gap 14 (5-15); Calcium 8.2 mg/dL (8.7-10.4); Carbon Dioxide 26 mmol/L (20-31); Chloride 95 mmol/L (98-107); Potassium 3.6 mmol/L (3.5-5.1); Sodium 135 mmol/L (136-145)
[2024-10-18 06:48] LABS: Glucose 176 mg/dL (74-106)
[2024-10-18 06:49] LABS: BUN/Creatinine Ratio 12.2 (10.0-20.0)
[2024-10-18 06:51] LABS: Blood Urea Nitrogen 92 mg/dL (9-23)
[2024-10-18 08:38] LABS: Hepatitis B Surface Antigen Negative (Negative)
[2024-10-18 08:59] LABS: Hepatitis A Ab IgM Negative; Hepatitis B Core IgM Negative
[2024-10-18 09:00] LABS: Hepatitis C Antibody Negative (Negative)
--- NOTE | 2024-10-18 09:20 | DVHPN2 ---
Reviewed: Care Plan, H&P, Labs, Medications, Previous Orders, Radiology Changes from previous H/P or p: No Changes Objective Vitals Vital Signs Date Time Temp Pulse Resp B/P (MAP) Pulse Ox O2 Delivery O2 Flow Rate FiO2 10/18/24 09:00 97.5 76 22 137/82 (100) 90 97.5 10/17/24 19:55 Oxymizer 10 N/A Intake/Output Intake and Output 10/18/24 07:00 Intake Total 1400 ml Output Total 1751 ml Balance -351 ml Intake Oral 800 ml IV Total 600 ml Output Urine Total 1750 ml Stool Total 1 ml Medications Current Medications Medications Dose Ordered Sig/Olinda Route Start Time Stop Time Status Last Admin Dose Admin Piperacillin Sod/ Tazobactam Sod 100 ml @ 25 mls/hr Q8HR IV 10/14/24 06:00 10/18/24 05:36 25 MLS/HR Vancomycin HCl 0 ml @ 0 mls/hr UD IV 10/13/24 23:30 Atorvastatin Calcium 40 mg HS PO 10/14/24 22:00 10/17/24 22:15 40 MG Amlodipine Besylate 5 mg DAILY PO 10/14/24 10:00 10/17/24 09:42 5 MG Diagnostic Test (Pha) 1 strip Q6HR 10/14/24 00:00 10/18/24 05:46 1 STRIP Insulin Human Regular Q6HR SC 10/14/24 00:00 10/18/24 05:51 3 UNITS Dextrose 50 ml UD PRN IV 10/13/24 23:30 Ondansetron HCl 4 mg Q4HP PRN IV 10/13/24 23:30 10/16/24 18:18 4 MG Acetaminophen 650 mg Q6HP PRN PO 10/13/24 23:30 10/18/24 03:15 650 MG Nitroglycerin 0.4 mg Q5MINP PRN SL 10/13/24 23:30 Morphine Sulfate 2 mg Q30M PRN IV 10/13/24 23:30 Hold Aspirin 81 mg DAILY PO 10/15/24 10:00 10/17/24 09:42 81 MG Heparin Sodium (Porcine) 5,000 units Q12HR SC 10/15/24 10:00 10/17/24 22:15 5,000 UNITS Furosemide 80 mg BIDD IV 10/16/24 07:30 10/18/24 05:36 80 MG Hydromorphone HCl 2 mg Q4HPRN PRN IV 10/17/24 13:15 10/18/24 05:37 2 MG Laboratory Results Laboratory Tests 10/18/24 05:45 Chemistry Test 10/18/24 05:45 Calcium Level 8.2 mg/dL (8.7-10.4) L Urinalysis Test 10/13/24 22:00 10/14/24 17:27 Urine Color Yellow (Yellow) Urine Clarity Turbid (Clear) H Urine pH 6.0 (5.0-9.0) Urine Specific [place] 1.020 (1.001-1.035) Urine Protein 3+ (Negative) H Urine Ketones Negative (Negative) Urine Blood 3+ /uL (Negative) H Urine Nitrite Negative (Negative) Urine Bilirubin Negative (Negative) Urine Urobilinogen Normal mg/dL (Negative) Urine Leukocyte Esterase Negative /uL (Negative) Urine RBC 2 /hpf (0 - 3) Urine WBC 4 /hpf (0 - 3) Urine Squamous Epithelial Cells Few /hpf (<5) Urine Amorphous Crystals Few /hpf (None Seen) Urine Bacteria Mod /hpf (None Seen) H Urine Glucose 4+ mg/dL (Normal) H Urine Creatinine 77.85 mg/dL (30.0-125.0) Urine Sodium 24 mmol/L (40-220) L Urine Total Protein 647.5 mg/dL (1-14) H Microbiology Microbiology Date/Time Source Procedure Growth Status 10/15/24 13:47 Nose MRSA Screen - Final Complete 10/14/24 10:43 Blood Blood Culture - Final Staphylococcus aureus Complete 10/13/24 22:00 Voided Urine Urine Culture - Final Complete Labs and/or images reviewed: Labs reviewed by me, Image(s) reviewed by me Assessment/Plan Assessment/Plan Septic shock with elevated white count altered mental status: Bacteremia with MRSA, continue vancomycin and Zosyn Syncope possibly secondary to sepsis: CT head negative, chest x-ray negative, C- spine CT negative, echocardiogram 55 percent ejection fraction, carotid ultrasound pending, Neurology consult appreciated EEG normal, MRI brain pending, Cardiology consult by Dr. Diaz appreciated, no further cardiac workup Non STEMI type 2 secondary to sepsis, echo 10/14/2024 shows 55 % ejection fraction Acute kidney injury hemodynamically mediated; multifactorial, BUN creatinine 44 and 2.61 at the time of admission, now worsening 68/6.94, closely following, patient received hemodialysis on 10/16/2024, bicarb drip discontinued Lasix continued Left foot infection with MRSA: Continue vancomycin Acute metabolic encephalopathy Elevated D-dimer 5.50: DVT ruled out , PE ruled out Chronic Left foot infection Consult for Dr. Watts appreciated, MRI left foot shows no osteomyelitis of the 1st metatarsal stump or abscess History of left 1st toe amputation CT left foot shows no osteomyelitis Left knee x-ray negative Hepatomegaly Hypertension Obstructive Sleep apnea: CPAP Uncontrolled diabetes: Insulin sliding scale Hypercholesterolemia Hypothyroidism History of CVA Chronic calcaneal fracture right foot History of coronary artery disease Diabetic medial left foot ulcer: Wound consult, wound cultures growing MRSA on vancomycin Right IJ dialysis cath in place Moderate malnutrition Pain management: On Dilaudid IV Time spent 65 minutes Advanced care planning 20 minutes Condition guarded Plan discussed with: Patient My Orders Orders - ROWENA MEREDITH MD Procedure Category Date Status Time Hydromorphone PHA 10/17/24 In Process Injection (Dilaudid 13:15 Date of Service: Oct 18, 2024 Billing Provider: ROWENA MEREDITH MD Common Visit Codes: [id number] CARE 30-74 MIN ROWENA MEREDITH MD Oct 18, 2024 09:20
[2024-10-18 13:06] LABS: Antimyeloperoxidase (MPO) Ab <0.2 units (0.0-0.9); Antiproteinase 3 (PR-3) Ab <0.2 units (0.0-0.9)
--- NOTE | 2024-10-18 17:33 | DVHPN2 ---
Progress Note Date Seen: Oct 18, 2024 Medical Necessity Reason Pt with a Central, PICC or Fol: Yes The following are medically ne: [place] Catheter Subjective Patient reports: No new complaints Review of Systems: HEENT:Normal, CVS:Normal, RESPIRATORY:Normal, GI:Normal, :Normal, MSK:Abnormal, NEURO:Normal Objective vital signs Vital Sign Date Time Temp Pulse Resp B/P (MAP) Pulse Ox O2 Delivery O2 Flow Rate FiO2 10/18/24 14:44 84 22 175/86 10/18/24 13:00 97.5 92 97.5 10/18/24 08:00 Oxymizer 10 N/A Total Intake and Output 10/17/24 10/17/24 10/18/24 15:00 23:00 07:00 Intake Total 100 ml 900 ml 400 ml Output Total 650 ml 1101 ml Balance 100 ml 250 ml -701 ml medications Current Medications Medications Dose Ordered Sig/Olinda Route Start Time Stop Time Status Last Admin Dose Admin Piperacillin Sod/ Tazobactam Sod 100 ml @ 25 mls/hr Q8HR IV 10/14/24 06:00 10/18/24 14:55 25 MLS/HR Vancomycin HCl 0 ml @ 0 mls/hr UD IV 10/13/24 23:30 Atorvastatin Calcium 40 mg HS PO 10/14/24 22:00 10/17/24 22:15 40 MG Amlodipine Besylate 5 mg DAILY PO 10/14/24 10:00 10/18/24 10:28 5 MG Diagnostic Test (Pha) 1 strip Q6HR 10/14/24 00:00 10/18/24 12:06 1 STRIP Insulin Human Regular Q6HR SC 10/14/24 00:00 10/18/24 12:06 4 UNITS Dextrose 50 ml UD PRN IV 10/13/24 23:30 Ondansetron HCl 4 mg Q4HP PRN IV 10/13/24 23:30 10/16/24 18:18 4 MG Acetaminophen 650 mg Q6HP PRN PO 10/13/24 23:30 10/18/24 03:15 650 MG Nitroglycerin 0.4 mg Q5MINP PRN SL 10/13/24 23:30 Morphine Sulfate 2 mg Q30M PRN IV 10/13/24 23:30 Hold Aspirin 81 mg DAILY PO 10/15/24 10:00 10/18/24 10:01 81 MG Heparin Sodium (Porcine) 5,000 units Q12HR SC 10/15/24 10:00 10/18/24 10:01 5,000 UNITS Furosemide 80 mg BIDD IV 10/16/24 07:30 10/18/24 05:36 80 MG Hydromorphone HCl 2 mg Q4HPRN PRN IV 10/17/24 13:15 10/18/24 14:44 2 MG Examination: GENERAL:Normal, HEENT:Normal, NECK:Normal, LUNGS:Normal, CVS:Normal, ABDOMEN:Normal, MSK:Abnormal (left toe amputation), SKIN:Normal, NEURO:Normal, :Normal laboratory and microbiology Laboratory Tests 10/18/24 05:45 Test 10/18/24 05:45 Range/Units Serum Glucose 176 H 74-106 mg/dL Microbiology Date/Time Source Procedure Growth Status 10/15/24 13:47 Nose MRSA Screen - Final Complete 10/14/24 10:43 Blood Blood Culture - Final Staphylococcus aureus Complete 10/13/24 22:00 Voided Urine Urine Culture - Final Complete Problem List/Assessment/Plan Problem List/Assessment/Plan Acute kidney injury likely septic ATN+(vanc +zosyn ) Baseline renal function is normal Sepsis due to bacteremia; STaph Urinary tract infection Syncope Obstructive sleep apnea severe proteinuria likely due to Dm2 EF 55% grade 1 diatolic recs continue lasix Hd treatment today Ultrasound of the kidney was unremarkable on vanc +zosyn high risk of nephrotoxicity--consider descalate if appropriate does not need zosyn--consider ID Plan discussed with: Patient Dietary Evaluation Review Comments: 1. Consider adding nephrovite 2. Consider adding renal to diet restrictions 3. Consider adding Nepro shake if pt with low PO intake Expected Outcomes/Goals: 1. Pt will consume >75% of estimated needs within 3-5 days NAOMI AKERS MD Oct 18, 2024 17:33
[2024-10-18] MEDS: VANCOMYCIN 500 MG in D5W 5% 100 ML IV ONE (18:00)
[2024-10-18] MEDS: EPOETIN ALFA-EPBX 10,000 UNIT/1ML VIAL SC ONE (21:39)
[2024-10-19] VITALS (8 sets, daily range): BP systolic 103–131; BP diastolic 62–73; PULSE 66–96; RESP 16–24; TEMP 87–98.1; O2SAT 91–97
[2024-10-19] MEDS: HYDROcodone-ACET 7.5/325MG TAB PO PRN (02:59)
--- NOTE | 2024-10-19 09:16 | DVHPN2 ---
Reviewed: Care Plan, H&P, Labs, Medications, Previous Orders, Radiology Changes from previous H/P or p: No Changes Objective Vitals Vital Signs Date Time Temp Pulse Resp B/P (MAP) Pulse Ox O2 Delivery O2 Flow Rate FiO2 10/19/24 08:00 94 Oxymizer 10 N/A 10/19/24 06:49 127/62 10/19/24 05:30 87 14 10/19/24 05:00 97.5 97.5 Intake/Output Intake and Output 10/19/24 07:00 Intake Total 1350 ml Output Total 2350 ml Balance -1000 ml Intake Oral 1150 ml IV Total 200 ml Output Urine Total 2350 ml Medications Current Medications Medications Dose Ordered Sig/Olinda Route Start Time Stop Time Status Last Admin Dose Admin Piperacillin Sod/ Tazobactam Sod 100 ml @ 25 mls/hr Q8HR IV 10/14/24 06:00 10/19/24 06:58 25 MLS/HR Vancomycin HCl 0 ml @ 0 mls/hr UD IV 10/13/24 23:30 Atorvastatin Calcium 40 mg HS PO 10/14/24 22:00 10/18/24 21:37 40 MG Amlodipine Besylate 5 mg DAILY PO 10/14/24 10:00 10/18/24 10:28 5 MG Diagnostic Test (Pha) 1 strip Q6HR 10/14/24 00:00 10/19/24 06:00 1 STRIP Insulin Human Regular Q6HR SC 10/14/24 00:00 10/19/24 06:56 3 UNITS Dextrose 50 ml UD PRN IV 10/13/24 23:30 Ondansetron HCl 4 mg Q4HP PRN IV 10/13/24 23:30 10/16/24 18:18 4 MG Acetaminophen 650 mg Q6HP PRN PO 10/13/24 23:30 10/18/24 03:15 650 MG Nitroglycerin 0.4 mg Q5MINP PRN SL 10/13/24 23:30 Morphine Sulfate 2 mg Q30M PRN IV 10/13/24 23:30 Hold Aspirin 81 mg DAILY PO 10/15/24 10:00 10/18/24 10:01 81 MG Heparin Sodium (Porcine) 5,000 units Q12HR SC 10/15/24 10:00 10/18/24 21:41 5,000 UNITS Furosemide 80 mg BIDD IV 10/16/24 07:30 10/19/24 06:49 80 MG Hydromorphone HCl 2 mg Q4HPRN PRN IV 10/17/24 13:15 10/19/24 05:00 2 MG Acetaminophen/ Hydrocodone Bitart 1 tab Q6HP PRN PO 10/19/24 00:30 10/19/24 02:59 1 TAB Laboratory Results Laboratory Tests 10/18/24 05:45 Urinalysis Test 10/13/24 22:00 10/14/24 17:27 Urine Color Yellow (Yellow) Urine Clarity Turbid (Clear) H Urine pH 6.0 (5.0-9.0) Urine Specific [place] 1.020 (1.001-1.035) Urine Protein 3+ (Negative) H Urine Ketones Negative (Negative) Urine Blood 3+ /uL (Negative) H Urine Nitrite Negative (Negative) Urine Bilirubin Negative (Negative) Urine Urobilinogen Normal mg/dL (Negative) Urine Leukocyte Esterase Negative /uL (Negative) Urine RBC 2 /hpf (0 - 3) Urine WBC 4 /hpf (0 - 3) Urine Squamous Epithelial Cells Few /hpf (<5) Urine Amorphous Crystals Few /hpf (None Seen) Urine Bacteria Mod /hpf (None Seen) H Urine Glucose 4+ mg/dL (Normal) H Urine Creatinine 77.85 mg/dL (30.0-125.0) Urine Sodium 24 mmol/L (40-220) L Urine Total Protein 647.5 mg/dL (1-14) H Microbiology Microbiology Date/Time Source Procedure Growth Status 10/15/24 13:47 Nose MRSA Screen - Final Complete 10/14/24 10:43 Blood Blood Culture - Final Staphylococcus aureus Complete 10/13/24 22:00 Voided Urine Urine Culture - Final Complete Labs and/or images reviewed: Labs reviewed by me, Image(s) reviewed by me Assessment/Plan Assessment/Plan Septic shock with elevated white count altered mental status: Bacteremia with MRSA, continue vancomycin and Zosyn, ID consult placed to Dr.Keviv Richmond Syncope possibly secondary to sepsis: CT head negative, chest x-ray negative, C- spine CT negative, echocardiogram 55 percent ejection fraction, carotid ultrasound pending, Neurology consult appreciated EEG normal, MRI brain pending, Cardiology consult by Dr. Diaz appreciated, no further cardiac workup Non STEMI type 2 secondary to sepsis, echo 10/14/2024 shows 55 % ejection fraction Acute kidney injury hemodynamically mediated; multifactorial, BUN creatinine 44 and 2.61 at the time of admission, now worsening 68/6.94, closely following, patient received hemodialysis on 10/16/2024, bicarb drip discontinued Lasix continued Left foot infection with MRSA: Continue vancomycin Acute metabolic encephalopathy Elevated D-dimer 5.50: DVT ruled out , PE ruled out Chronic Left foot infection Consult for Dr. Watts appreciated, MRI left foot shows no osteomyelitis of the 1st metatarsal stump or abscess History of left 1st toe amputation CT left foot shows no osteomyelitis Left knee x-ray negative Hepatomegaly Hypertension Obstructive Sleep apnea: CPAP Uncontrolled diabetes: Insulin sliding scale Hypercholesterolemia Hypothyroidism History of CVA Chronic calcaneal fracture right foot History of coronary artery disease Diabetic medial left foot ulcer: Wound consult, wound cultures growing MRSA on vancomycin Right IJ dialysis cath in place Moderate malnutrition Pain management: On Dilaudid IV Time spent 65 minutes Advanced care planning 20 minutes Condition guarded Plan discussed with: Patient Date of Service: Oct 19, 2024 Billing Provider: ROWENA MEREDITH MD Common Visit Codes: [id number] CARE 30-74 MIN ROWENA MEREDITH MD Oct 19, 2024 09:16
[2024-10-19 15:38] LABS: Chloride 97 mmol/L (98-107); Potassium 3.7 mmol/L (3.5-5.1); Sodium 135 mmol/L (136-145)
[2024-10-19 15:39] LABS: Anion Gap 14 (5-15); Carbon Dioxide 24 mmol/L (20-31)
[2024-10-19 15:40] LABS: Calcium 8.2 mg/dL (8.7-10.4)
[2024-10-19 15:44] LABS: BUN/Creatinine Ratio 11.7 (10.0-20.0); Glucose 199 mg/dL (74-106)
[2024-10-19 15:53] LABS: Blood Urea Nitrogen 92 mg/dL (9-23)
[2024-10-19] MEDS: CATHFLO ACTIVASE (ALTEPLASE) 2 MG VIAL IV ONE (16:07)
--- NOTE | 2024-10-19 16:44 | DVHPN2 ---
Progress Note Date Seen: Oct 19, 2024 Medical Necessity Reason Pt with a Central, PICC or Fol: Yes The following are medically ne: [place] Catheter Subjective Patient reports: No new complaints Review of Systems: HEENT:Normal, CVS:Normal, RESPIRATORY:Normal, GI:Normal, :Normal, MSK:Normal, NEURO:Normal Objective vital signs Vital Sign Date Time Temp Pulse Resp B/P (MAP) Pulse Ox O2 Delivery O2 Flow Rate FiO2 10/19/24 14:06 92 18 148/99 10/19/24 13:00 87.0 97 87.0 10/19/24 08:00 Oxymizer 10 N/A Total Intake and Output 10/18/24 10/18/24 10/19/24 15:00 23:00 07:00 Intake Total 950 ml 400 ml Output Total 1050 ml 1300 ml Balance -100 ml -900 ml medications Current Medications Medications Dose Ordered Sig/Olinda Route Start Time Stop Time Status Last Admin Dose Admin Vancomycin HCl 0 ml @ 0 mls/hr UD IV 10/13/24 23:30 Cancel Atorvastatin Calcium 40 mg HS PO 10/14/24 22:00 10/18/24 21:37 40 MG Amlodipine Besylate 5 mg DAILY PO 10/14/24 10:00 10/19/24 09:42 5 MG Diagnostic Test (Pha) 1 strip Q6HR 10/14/24 00:00 10/19/24 12:24 1 STRIP Insulin Human Regular Q6HR SC 10/14/24 00:00 10/19/24 12:28 4 UNITS Dextrose 50 ml UD PRN IV 10/13/24 23:30 Ondansetron HCl 4 mg Q4HP PRN IV 10/13/24 23:30 10/16/24 18:18 4 MG Acetaminophen 650 mg Q6HP PRN PO 10/13/24 23:30 10/18/24 03:15 650 MG Nitroglycerin 0.4 mg Q5MINP PRN SL 10/13/24 23:30 Morphine Sulfate 2 mg Q30M PRN IV 10/13/24 23:30 Hold Aspirin 81 mg DAILY PO 10/15/24 10:00 10/19/24 09:42 81 MG Heparin Sodium (Porcine) 5,000 units Q12HR SC 10/15/24 10:00 10/19/24 09:40 5,000 UNITS Furosemide 80 mg BIDD IV 10/16/24 07:30 10/19/24 06:49 80 MG Hydromorphone HCl 2 mg Q4HPRN PRN IV 10/17/24 13:15 10/19/24 14:06 2 MG Acetaminophen/ Hydrocodone Bitart 1 tab Q6HP PRN PO 10/19/24 00:30 10/19/24 02:59 1 TAB Nafcillin Sodium 2 gm/Sodium Chloride 100 ml @ 100 mls/hr Q4HR IV 10/19/24 18:00 Examination: GENERAL:Abnormal, MSK:Abnormal, SKIN:Abnormal laboratory and microbiology Laboratory Tests 10/19/24 14:56 10/18/24 05:45 Test 10/19/24 14:56 Range/Units Serum Glucose 199 H 74-106 mg/dL Microbiology Date/Time Source Procedure Growth Status 10/15/24 13:47 Nose MRSA Screen - Final Complete 10/14/24 10:43 Blood Blood Culture - Final Staphylococcus aureus Complete 10/13/24 22:00 Voided Urine Urine Culture - Final Complete Problem List/Assessment/Plan Problem List/Assessment/Plan Acute kidney injury likely septic ATN+(vanc +zosyn )nephrotoxicity Baseline renal function is normal Sepsis due to bacteremia; STaph Urinary tract infection Syncope Obstructive sleep apnea severe proteinuria likely due to Dm2 EF 55% grade 1 diatolic recs continue lasix Hd treatment today--cath issues noted-cathflo ordered ID stopped vanc and zosyn and started nafcillin monitor for renal recovery ,, blood cx need to be neg for 72 hrs for tunneled cath placement if no recovery in renal function Plan discussed with: Patient My Orders My Orders Orders - NAOMI AKERS MD Procedure Category Date Status Time Blood Culture [place] 10/19/24 In Process 04:00 Basic Metabolic Panel LAB 10/20/24 Verified 04:00 Dietary Evaluation Review Comments: 1. Consider adding nephrovite 2. Consider adding renal to diet restrictions 3. Consider adding Nepro shake if pt with low PO intake Expected Outcomes/Goals: 1. Pt will consume >75% of estimated needs within 3-5 days NAOMI AKERS MD Oct 19, 2024 16:44
[2024-10-19] MEDS: NAFCILLIN SOD 2GM 2 GM in SODIUM CHL 0.9% 100 ML IV SCH (18:07)
--- NOTE | 2024-10-19 20:29 | DVHINCON2 ---
"Date of service: Oct 19, 2024 Family History: Alzheimer's disease G8 MOTHER, Cardiovascular disease G8 MOTHER, Colon cancer G8 FATHER, G8 SISTER Congenital anomaly Diabetes mellitus G8 MOTHER, FH: dementia G8 MOTHER, Family history: Diabetes mellitus G8 MOTHER, G8 BROTHER Hypertension G8 MOTHER, Allergies: Coded Allergies: Morphine (Verified Allergy, Unknown, 10/13/24) Home Meds Active Scripts Sulfamethoxazole W/Trimethopri (Bactrim Ds Tablet) 1 Tab Tb, 1 TAB PO BID for 7 Days, #14 TAB Prov:LUIS NAIR NP 07/22/24 Doxycycline Monohydrate (Doxycycline Monohydrate) 100 Mg Cap, 1 CAP PO BID, #20 CAP Prov:MELISSA READ MD 05/18/24 Hydrochlorothiazide (Hydrochlorothiazide) 25 Mg Tab, 25 MG PO DAILY for 30 Days, #30 MG 5 Refills Prov:MELISSA READ MD 05/18/24 Polyethylene Glycol 3350 (Miralax) 17 Gm Pow, 17 GM PO BID for 30 Days, #60 POW Prov:MANDY LARES RESIDENT 08/11/23 Insulin Detemir (Levemir) Inj, 20 UNITS SC BID for 30 Days, #60 INJ Prov:MANDY LARES RESIDENT 08/11/23 Reported Medications Pregabalin (Pregabalin) 50 Mg Cap, 1 CAP PO TID 07/21/24 Oxycodone W/ Acetaminophen (Percocet 5/325MG) 1 Tab Tb, 1 TAB PO Q6HPRN PRN for MODERATE PAIN (4-6 PAIN SCALE), #90 TAB 03/04/23 Pregabalin (Lyrica) 50 Mg Cap, 1 CAP PO TID, #90 CAP 03/04/23 Amlodipine Besylate (NORVASC TABLET) 5 Mg Tb, 10 MG PO DAILY, TAB 03/04/23 Triazolam (Halcion) 0.25 Mg Tab, 2 TAB PO QPM, #60 TAB 05/01/18 Sitagliptin Phosphate (Januvia) 50 Mg Tab, 100 MG PO DAILY, #30 TAB 5 Refills 05/01/18 Glipizide (Glipizide) 10 Mg Tab, 10 MG PO BID for 30 Days, MG 05/01/18 Atorvastatin Calcium (ATORVASTATIN CALCIUM) 40 Mg Tab, 1 TAB PO DAILY, #30 TAB 5 Refills 05/01/18 Aspirin (Aspir-Low) 81 Mg Tab, 81 MG PO DAILY for 30 Days, MG 05/01/18 Lisinopril (Lisinopril) 40 Mg Tab, 40 MG PO DAILY for 30 Days, MG 03/11/18 Metformin Hydrochloride (Metformin Hcl) 500 Mg Tab, 500 MG PO BID for 30 Days, MG 03/20/17 Current Medications Current Medications Medications (Trade) Dose Ordered Sig/Olinda Route PRN Reason Start Time Stop Time Status Last Admin Acetaminophen/ Hydrocodone Bitart ([place] 7.5/325MG Tab) 1 tab Q6HP PRN PO MODERATE PAIN (4-6 PAIN SCALE) 10/19/24 00:30 10/19/24 02:59 Nafcillin Sodium 2 gm/Sodium Chloride 100 ml @ 100 mls/hr Q4HR IV 10/19/24 18:00 10/19/24 18:07 Vital Signs Vital Signs Date Time Temp Pulse Resp B/P (MAP) Pulse Ox O2 Delivery O2 Flow Rate FiO2 10/19/24 19:45 61 14 140/65 10/19/24 17:00 97.9 97 97.9 10/19/24 08:00 Oxymizer 10 N/A Labs/Diagnostic Data Labs Test 10/19/24 14:56 10/19/24 12:23 10/18/24 05:45 10/16/24 05:08 Range/Units Sodium Level 135 L 136-145 mmol/L Potassium Level 3.7 3.5-5.1 mmol/L Chloride Level 97 L 98-107 mmol/L Carbon Dioxide Level 24 20-31 mmol/L Anion Gap 14 5-15 Blood Urea Nitrogen 92 *H 9-23 mg/dL Creatinine 7.87 H 0.700-1.30 mg/dL Glomerular Filtration Rate Calc 7 >90 mL/min BUN/Creatinine Ratio 11.7 10.0-20.0 Serum Glucose 199 H 74-106 mg/dL Calcium Level 8.2 L 8.7-10.4 mg/dL POC Glucose 209 H 70-106 mg/dl White Blood Count 13.3 H 4.4-10.8 10^3/uL Red Blood Count 3.76 L 4.5-5.90 10^6/uL Hemoglobin 9.9 L 13.5-17.5 g/dL Hematocrit 29.7 L 41.0-53.0 % Mean Corpuscular Volume 79.2 L 80.0-100.0 fL Mean Corpuscular Hemoglobin 26.2 L 28.0-32.0 pg Mean Corpuscular Hemoglobin Concent 33.1 32.0-36.0 g/dL Red Cell Distribution Width 17.8 H 11.8-14.3 % Platelet Count 170 140-450 10^3/uL Mean Platelet Volume 8.0 6.9-10.8 fL Neutrophils (%) (Auto) 82.1 H 37.0-80.0 % Lymphocytes (%) (Auto) 8.3 L 10.0-50.0 % Monocytes (%) (Auto) 6.6 0.0-12.0 % Eosinophils (%) (Auto) 2.7 0.0-7.0 % Basophils (%) (Auto) 0.3 0.0-2.0 % Neutrophils # (Auto) 10.9 H 1.6-8.6 10 ^3/uL Lymphocytes # (Auto) 1.1 0.4-5.4 10 ^3/uL Monocytes # (Auto) 0.9 0-1.3 10 ^3/uL Eosinophils # (Auto) 0.4 0-0.8 10 ^3/uL Basophils # (Auto) 0 0-0.2 10 ^3/uL Nucleated Red Blood Cells 0.1 % Random Vancomycin Level 16.4 H 5-10 ug/mL Total Bilirubin 0.6 0.2-1.0 mg/dL Aspartate Amino Transferase (AST) 237 H 13-40 U/L Alanine Aminotransferase (ALT) 161 H 7-40 U/L Alkaline Phosphatase 191 H 46-116 U/L Total Protein 6.8 5.7-8.2 g/dL Albumin 3.5 3.2-4.8 g/dL Test 10/16/24 04:27 10/15/24 13:10 10/15/24 02:15 10/14/24 17:27 Range/Units Hepatitis A IgM Antibody Negative Hepatitis B Surface Antigen Negative Negative Hepatitis B Core IgM Antibody Negative Hepatitis C Antibody Negative Negative Anti-Nuclear Antibody Comment Comment . Anti-Proteinase 3 (c-ANCA) <0.2 0.0-0.9 units Myeloperoxidase Antibody <0.2 0.0-0.9 units PHIL-1 Antibody <0.2 0.0-0.9 AI SS-A/Ro Antibody <0.2 0.0-0.9 AI SS-B/La Antibody <0.2 0.0-0.9 AI Sm Antibody <0.2 0.0-0.9 AI [employer] Antibody 0.3 0.0-0.9 AI Scl-70 (Scleroderma) Antibody <0.2 0.0-0.9 AI Anti-Double Strand DNA Antibody <1 0-9 IU/mL Chromatin Antibody 0.7 0.0-0.9 AI Centromere B Antibody <0.2 0.0-0.9 AI Complement C3 155 82-167 mg/dL Complement C4 23 12-38 mg/dL Influenza Type A Antigen Negative Negative Influenza Type B Antigen Negative Negative SARS-CoV-2 Antigen (Rapid) Negative NEGATIVE Urine Creatinine 77.85 30.0-125.0 mg/dL Urine Sodium 24 L 40-220 mmol/L Urine Total Protein 647.5 H 1-14 mg/dL Test 10/14/24 10:43 10/14/24 05:29 10/13/24 22:55 10/13/24 22:12 Range/Units Lactic Acid Level 1.8 0.4-2.0 mmol/L Ammonia 17 11-32 umol/L Hemoglobin A1c 9.2 H <5.7 % A1C Phosphorus Level 4.3 2.4-5.1 mg/dL Magnesium Level 2.1 1.6-2.6 mg/dL Triglycerides Level 158 H < 150 mg/dL Cholesterol Level 102 < 200 mg/dL LDL Cholesterol 32 < 100 mg/dL HDL Cholesterol 36 L 40-59 mg/dL Vitamin B12 Level 446 211-911 pg/mL Vitamin D 25-Hydroxy 22.0 L 30.0-100 ng/mL Thyroid Stimulating Hormone (TSH) 0.46 L 0.55-4.78 uIU/mL Blood Gas Specimen Type Arterial Blood Gas Sample Site Right radial Blood Gas Patient Temperature 37.0 Arterial Blood Date Drawn [id number] Arterial Blood pH 7.411 7.350-7.450 Arterial Blood Partial Pressure CO2 37.6 35.0-48.0 mmHg Arterial Blood Partial Pressure O2 70.3 L 83.0-108.0 mmHg Arterial Blood HCO3 23.4 21.0-28.0 mmol/L Arterial Blood Oxygen Saturation 93.7 L 94.0-98.0 % Arterial Blood Base Excess -1.0 -2.0-3.0 mmol/L Arterial Blood Oxyhemoglobin 92.3 L 94.0-98.0 % Arterial Blood Carboxyhemoglobin 1.2 0.5-1.5 % Arterial Blood Methemoglobin 0.3 0.0-1.5 % Donta Test Modified Blood Gas Total Hemoglobin 12.10 L 13.5-17.5 g/dL Blood Gas Liter Flow 5.00 Blood Gas Modality Nasal cannula FiO2 % 40.0 D-Dimer, Quantitative 5.50 H 0.0-0.49 mg/L FEU Troponin I High Sensitivity 324 *H </=54 ng/L Test 10/13/24 22:00 10/13/24 18:50 Range/Units Urine Color Yellow Yellow Urine Clarity Turbid H Clear Urine pH 6.0 5.0-9.0 Urine Specific [place] 1.020 1.001-1.035 Urine Protein 3+ H Negative Urine Ketones Negative Negative Urine Blood 3+ H Negative /uL Urine Nitrite Negative Negative Urine Bilirubin Negative Negative Urine Urobilinogen Normal Negative mg/dL Urine Leukocyte Esterase Negative Negative /uL Urine RBC 2 0 - 3 /hpf Urine WBC 4 0 - 3 /hpf Urine Squamous Epithelial Cells Few <5 /hpf Urine Amorphous Crystals Few None Seen /hpf Urine Bacteria Mod H None Seen /hpf Urine Glucose 4+ H Normal mg/dL Urine Opiates Screen Neg NEGATIVE Urine Fentanyl Screen Neg NEGATIVE Urine Barbiturates Screen Neg NEGATIVE Urine Phencyclidine Screen Neg NEGATIVE Urine Amphetamines Screen Neg NEGATIVE Urine Benzodiazepines Screen Neg NEGATIVE Urine Cocaine Screen Neg NEGATIVE Urine Cannabinoids Screen Neg NEGATIVE Differential Total Cells Counted 100.0 100 Neutrophils % (Manual) 63 37.0-80.0 Band Neutrophils % (Manual) 30 Lymphocytes % (Manual) 2 L 10.0-50.0 Monocytes % (Manual) 4 0-12 Eosinophils % (Manual) 0 0-7 Basophils % (Manual) 0 0.0-2.0 Metamyelocytes % (manual) 1 Myelocytes % (Manual) 0 Promyelocytes % (Manual) 0 Blast Cells % (Manual) 0 Reactive Lymphocytes 0 Platelet Estimate Adequate Microcytosis Slight Prothrombin Time 13.1 H 9.3-11.8 sec Prothrombin Time INR 1.26 H 0.9-1.15 Activated Partial Thromboplast Time 34.4 24.5-34.5 SEC B-Type Natriuretic Peptide 379.72 0-100 pg/mL Microbiology Date/Time Source Procedure Growth Status 10/15/24 13:47 Nose MRSA Screen - Final Complete 10/14/24 10:43 Blood Blood Culture - Final Staphylococcus aureus Complete 10/13/24 22:00 Voided Urine Urine Culture - Final Complete Problems(with codes): (1) MSSA (methicillin susceptible Staphylococcus aureus) septicemia (2) Sepsis (3) Cellulitis of right lower extremity (4) Cellulitis (5) Diabetic foot ulcer (6) Occluded PICC line (7) Metabolic encephalopathy (8) Leukocytosis, unspecified (9) Fever (10) Syncope Plan/Recommendation ASSESSMENT AND PLAN: ID Problem List: - MSSA bacteremia - Right foot cellulitis - Bilateral non-healing diabetic foot ulcers - Uncontrolled diabetes mellitus - Acute on chronic kidney disease - Morbid obesity - Dyslipidemia - Hypertension - History of stroke - Hypoxia - Severe sepsis - Lactic acidosis - Altered mental status - Hepatic steatosis - Possible need for further debridement Assessment This is a 69-year-old male with a past medical history of uncontrolled diabetes mellitus, hypertension, chronic kidney disease (baseline creatinine ~2), dyslipidemia, stroke, thyroid disease, morbid obesity, and multiple chronic non- healing diabetic foot ulcers on both feet. He has undergone prior amputations of the left and right great toes. The patient presents with an unwitnessed syncopal episode in the bathroom lasting approximately 4 hours. He denies any pre- syncopal symptoms, shortness of breath, fevers, or chills prior to the episode. On admission, the patient was febrile to 102.8F and hypoxic, requiring supplemental oxygen. Examination revealed right lower extremity cellulitis extending from the ankle to the great toe with drainage from a 1.1 cm ulcer. Laboratory findings include significant leukocytosis (WBC 36), anemia (Hb 12.2), worsening renal function (creatinine increased from baseline 2.61 to 2.7, BUN elevated to 89-92), hyperglycemia (glucose 279), and elevated lactic acid (4.5). Blood cultures grew MSSA on the 14th, and wound cultures from the right great toe grew MSSA on the th. Imaging studies showed right maxillary sinus opacification concerning for acute sinusitis. Left foot CT demonstrated mild soft tissue swelling without abscess or osteomyelitis. Right foot MRI indicated soft tissue inflammatory changes consistent with possible cellulitis but no abscess or osteomyelitis. The patient developed progressive hypoxia requiring up to 10 liters of supplemental oxygen. A V/Q scan ruled out pulmonary embolism. He underwent dialysis for worsening renal failure and volume overload, with placement of a dialysis catheter. Plan: - Antibiotic Management: - Continue nafcillin for MSSA bacteremia and right foot cellulitis. stop vancomycin and Zosyn - Monitor for efficacy and potential adverse effects. nafcillin will add volume but is less renal toxic overall - Renal Function: - Monitor renal function closely. - Avoid nephrotoxic medications. - prior to placement of permanent dialysis catheter will need to ensure clearance of bacteremia - Infectious Disease and Debridement: - defer to podiatry for potential further debridement of the right foot infection. - If bacteremia persists, consider transesophageal echocardiogram (VANDANA) to rule out endocarditis. - will fu on blood cultures - Diabetes Management: - Optimize glycemic control with insulin therapy. keep BG<180 - Monitor blood glucose levels closely. - Respiratory Support: - Continue supplemental oxygen therapy. - Monitor oxygen saturation and adjust oxygen delivery as needed. - Sepsis Management: - Monitor lactic acid levels. - Provide appropriate supportive care for severe sepsis. Wound Care: - Continue wound care for bilateral foot ulcers. - Coordinate with wound care specialists and home health services. Other Considerations: - Address morbid obesity with nutritional support and weight management strategies. - Monitor liver function tests due to hepatic steatosis. Isolation Precautions: Standard Assessment and plan was discussed with the patient as written above Plan is subject to change pending incorporation of new incoming information/diagnostics. Updates may be added as addendum at the bottom (OR TOP) of this note Thank you for this interesting consult. ID will continue to follow. Please contact Infectious Disease for any questions or concerns. Kings Richmond M.D. [facility] History: The patient's chart and medications were reviewed in detail, and the patient was seen and examined. History obtained from: patient Mr. Tigist Johnson is a 69-year-old male with a past medical history of uncontrolled diabetes mellitus, hypertension, chronic kidney disease (baseline creatinine ~2), dyslipidemia, stroke, thyroid disease, morbid obesity, and multiple chronic non-healing diabetic foot ulcers on both feet. He has had left great toe surgery and more recently a right great toe amputation. He presents following an unwitnessed syncopal episode in the bathroom that lasted approximately 4 hours. He denies any pre-syncopal symptoms, such as dizziness, shortness of breath, fevers, or chills prior to the event. The patient receives home health care for his wound once a week. He reports a family history of cancer, heart disease, and diabetes. He denies tobacco use, alcohol use, and illicit drug use. He is allergic to morphine. Review of Systems: A complete 10-system review of systems was completed and negative except as noted in the HPI or here. ROS: - CONSTITUTIONAL: Reports fever of 102.8F on admission. Denies weight loss or chills. - HEENT: Reports right maxillary sinus congestion. Denies changes in vision or hearing. - RESPIRATORY: Reports progressive hypoxia requiring supplemental oxygen. Denies cough. - CV: Denies chest pain or palpitations. - GI: Reports mild abdominal distention. Denies nausea, vomiting, or diarrhea. - : Denies dysuria and urinary frequency. - MSK: Reports bilateral knee pain and back pain. - SKIN: Reports right lower extremity cellulitis with drainage from ulcer on great toe. Chronic ulcers on left foot. - NEUROLOGICAL: Reports syncopal episode. Denies headache or seizures. - PSYCHIATRIC: Denies recent changes in mood, anxiety, or depression. Past Medical History: Diagnosis Date - Uncontrolled diabetes mellitus - Hypertension - Chronic kidney disease (baseline creatinine ~2) - Dyslipidemia - Stroke - Thyroid disease - Chronic non-healing diabetic foot ulcers - Morbid obesity Past Surgical History: - Left great toe amputation - Right great toe amputation (recent) Home Medications: Prior to Admission medications Medications not specified in the available information. Allergies: - Morphine: Allergic reaction details not specified Family History: Problem | Relation - | Cancer | Family history of unspecified cancer Heart disease | Family history Diabetes | Family history No partnership data on file Social History: Tobacco Use - Smoking status: Never smoked Substance and Sexual Activity - Alcohol use: Denies - Illicit drug use: Denies - Sexual activity: Not specified Objective: Vital Signs on Arrival: - Temp: 102.8F - BP: 119/66 mmHg - Pulse: Not specified - Resp: Not specified - SpO2: 95% on 4L/min oxygen Most Recent Vital Signs: - Temp: Not specified - BP: Not specified - Pulse: Not specified - Resp: Not specified - SpO2: Not specified Admission Weight: - Weight: Not specified - BMI: Not specified Physical Exam: - General: Morbidly obese. - Neck: Supple. No masses. - HEENT: PERRL. Normal lids and conjunctiva. Moist mucous membranes. Oropharynx without lesions, exudates, or excessive erythema. Normal appearance of the external aspects of the nose and ears. Right maxillary sinus tenderness. - Heart: Regular rhythm, normal rate. No murmur. No lower extremity edema. - Lungs: Crackles present bilaterally. - Abdomen: Mild distention. Soft. Non-tender. Non-distended. No masses or abdominal hernia. - MSK: Reports bilateral knee pain and back pain. No digital cyanosis. Normal strength and tone in all four limbs. - Skin: Warm and dry. Right lower extremity cellulitis extending from ankle to great toe with drainage from a 1.1 cm ulcer. Left foot wounds on great toe and second toe, appearing chronic with ulcers. - Neuro: Alert. No facial droop or slurred speech. Extra-ocular movements intact. Sensation intact to soft touch in all four limbs. - Psych: Appropriate mood. Full affect. Oriented to person, place, time, and situation. Lines: Active Lines - Dialysis catheter placed for hemodialysis. Diagnostic Studies: Available diagnostic studies were reviewed personally. Significant relevant results and findings are outlined below or addressed in the Assessment and Plan above. Pertinent Imaging: Recent Results (from the past 360 hour(s)) - Chest X-Ray: - No cardiopulmonary disease. - Head CT: - No intracranial abnormality. - Opacification of right maxillary sinus concerning for acute sinusitis. - V/Q Scan: - No pulmonary embolism. - Left Foot CT: - Mild soft tissue swelling of the medial plantar midfoot at the level of the metatarsophalangeal joint of the proximal first metatarsal. - Possible postoperative phlegmon. - No well-formed fluid collection to suggest abscess. - No evidence of acute fracture or osteomyelitis. - Prior amputation of the first digit at the proximal first metatarsal. - Moderate degenerative changes of the midfoot with subchondral lucency and joint space narrowing. - Right Foot MRI: - Wound of first metatarsal amputation stump with associated soft tissue inflammatory changes consistent with possible cellulitis. - No abscess. - No evidence of osteomyelitis. - Cortical deformity without lytic lesion of the second metatarsal head. - Medial subluxation of second digit proximal phalanx with respect to the second metatarsal head by 3.5 cm. Laboratory Studies: - WBC: 36,000/mm on admission. - Hemoglobin: 12.2 g/dL. - Platelets: 266,000/mm. - Creatinine: Increased from baseline 2.61 mg/dL to 2.7 mg/dL. - BUN: Elevated to 89-92 mg/dL. - Glucose: 279 mg/dL. AST: 2.4 U/L. ALT: 82 U/L. - Alkaline Phosphatase: 116 U/L. - Bilirubin: 1.2 mg/dL. - BNP: 379 pg/mL. - Lactic Acid: 4.5 mmol/L. - Blood Cultures: Positive for MSSA on 06/13/2024. - Wound Cultures: Right great toe positive for MSSA on 06/12/2024. - Plan discussed with: Patient KINGS RICHMOND MD Oct 19, 2024 20:29"
[2024-10-20] VITALS (7 sets, daily range): BP systolic 108–162; BP diastolic 64–76; PULSE 70–94; RESP 16–22; TEMP 97.8–98.6; O2SAT 93–98
[2024-10-20] MEDS: NAFCILLIN SOD 2GM 2 GM in SODIUM CHL 0.9% 100 ML IV SCH (01:14)
[2024-10-20 07:09] LABS: Calcium 8.9 mg/dL (8.7-10.4); Chloride 94 mmol/L (98-107); Potassium 3.3 mmol/L (3.5-5.1); Sodium 134 mmol/L (136-145)
[2024-10-20 07:10] LABS: Anion Gap 15 (5-15); Carbon Dioxide 25 mmol/L (20-31)
[2024-10-20 07:15] LABS: Glucose 177 mg/dL (74-106)
[2024-10-20 07:19] LABS: Blood Urea Nitrogen 91 mg/dL (9-23)
[2024-10-20] MEDS: SODIUM CHL 0.9% 1000 ML BAG XX ONE ×2 (07:33→07:34)
--- NOTE | 2024-10-20 08:43 | DVHPN2 ---
Reviewed: Care Plan, H&P, Labs, Medications, Previous Orders, Radiology Changes from previous H/P or p: No Changes Objective Vitals Vital Signs Date Time Temp Pulse Resp B/P (MAP) Pulse Ox O2 Delivery O2 Flow Rate FiO2 10/20/24 06:28 108/65 10/20/24 05:00 97.8 81 18 95 97.8 10/19/24 20:00 Oxymizer 10 N/A Intake/Output Intake and Output 10/20/24 07:00 Intake Total 1740 ml Output Total 2950 ml Balance -1210 ml Intake Oral 1640 ml IV Total 100 ml Output Urine Total 2950 ml # Bowel Movements 2 Medications Current Medications Medications Dose Ordered Sig/Olinda Route Start Time Stop Time Status Last Admin Dose Admin Vancomycin HCl 0 ml @ 0 mls/hr UD IV 10/13/24 23:30 Cancel Atorvastatin Calcium 40 mg HS PO 10/14/24 22:00 10/19/24 23:28 40 MG Amlodipine Besylate 5 mg DAILY PO 10/14/24 10:00 10/19/24 09:42 5 MG Diagnostic Test (Pha) 1 strip Q6HR 10/14/24 00:00 10/20/24 06:13 1 STRIP Insulin Human Regular Q6HR SC 10/14/24 00:00 10/20/24 06:29 3 UNITS Dextrose 50 ml UD PRN IV 10/13/24 23:30 Ondansetron HCl 4 mg Q4HP PRN IV 10/13/24 23:30 10/16/24 18:18 4 MG Acetaminophen 650 mg Q6HP PRN PO 10/13/24 23:30 10/18/24 03:15 650 MG Nitroglycerin 0.4 mg Q5MINP PRN SL 10/13/24 23:30 Morphine Sulfate 2 mg Q30M PRN IV 10/13/24 23:30 Hold Aspirin 81 mg DAILY PO 10/15/24 10:00 10/19/24 09:42 81 MG Heparin Sodium (Porcine) 5,000 units Q12HR SC 10/15/24 10:00 10/19/24 23:29 5,000 UNITS Furosemide 80 mg BIDD IV 10/16/24 07:30 10/20/24 06:28 80 MG Hydromorphone HCl 2 mg Q4HPRN PRN IV 10/17/24 13:15 10/20/24 03:21 2 MG Acetaminophen/ Hydrocodone Bitart 1 tab Q6HP PRN PO 10/19/24 00:30 10/19/24 02:59 1 TAB Nafcillin Sodium 2 gm/Sodium Chloride 100 ml @ 100 mls/hr Q4H IV 10/20/24 01:15 10/20/24 05:15 100 MLS/HR Laboratory Results Laboratory Tests 10/18/24 05:45 10/20/24 06:10 Chemistry Test 10/19/24 14:56 10/20/24 06:10 Calcium Level 8.2 mg/dL (8.7-10.4) L 8.9 mg/dL (8.7-10.4) Urinalysis Test 10/13/24 22:00 10/14/24 17:27 Urine Color Yellow (Yellow) Urine Clarity Turbid (Clear) H Urine pH 6.0 (5.0-9.0) Urine Specific [place] 1.020 (1.001-1.035) Urine Protein 3+ (Negative) H Urine Ketones Negative (Negative) Urine Blood 3+ /uL (Negative) H Urine Nitrite Negative (Negative) Urine Bilirubin Negative (Negative) Urine Urobilinogen Normal mg/dL (Negative) Urine Leukocyte Esterase Negative /uL (Negative) Urine RBC 2 /hpf (0 - 3) Urine WBC 4 /hpf (0 - 3) Urine Squamous Epithelial Cells Few /hpf (<5) Urine Amorphous Crystals Few /hpf (None Seen) Urine Bacteria Mod /hpf (None Seen) H Urine Glucose 4+ mg/dL (Normal) H Urine Creatinine 77.85 mg/dL (30.0-125.0) Urine Sodium 24 mmol/L (40-220) L Urine Total Protein 647.5 mg/dL (1-14) H Microbiology Microbiology Date/Time Source Procedure Growth Status 10/15/24 13:47 Nose MRSA Screen - Final Complete 10/14/24 10:43 Blood Blood Culture - Final Staphylococcus aureus Complete 10/13/24 22:00 Voided Urine Urine Culture - Final Complete Labs and/or images reviewed: Labs reviewed by me, Image(s) reviewed by me Assessment/Plan Assessment/Plan Septic shock with elevated white count altered mental status: Bacteremia with MSSA, ID consult by Dr. Phong Richmond appreciated, vancomycin and Zosyn discontinued started on nafcillin 4 g IV q.4 hours Syncope possibly secondary to sepsis: CT head negative, chest x-ray negative, C- spine CT negative, echocardiogram 55 percent ejection fraction, carotid ultrasound negative, Neurology consult appreciated EEG normal, Cardiology consult by Dr. Diaz appreciated, no further cardiac workup Non STEMI type 2 secondary to sepsis, echo 10/14/2024 shows 55 % ejection fraction Acute kidney injury hemodynamically mediated; multifactorial, BUN creatinine 44 and 2.61 at the time of admission, now worsening 68/6.94, closely following, patient received hemodialysis on 10/16/2024, bicarb drip discontinued Lasix continued Left foot infection with MSSA: Continue nafcillin Acute metabolic encephalopathy Elevated D-dimer 5.50: DVT ruled out , PE ruled out Chronic Left foot infection Consult for Dr. Watts appreciated, MRI left foot shows no osteomyelitis of the 1st metatarsal stump or abscess History of left 1st toe amputation Left knee x-ray negative Chronic calcaneus fracture right foot Hepatomegaly Hypertension Obstructive Sleep apnea: CPAP Uncontrolled diabetes: Insulin sliding scale Hypercholesterolemia Hypothyroidism History of CVA Chronic calcaneal fracture right foot History of coronary artery disease Diabetic medial left foot ulcer: Wound consult, wound cultures growing MSSA on nafcillin Right IJ dialysis cath in place Moderate malnutrition Pain management: On Dilaudid IV Time spent 65 minutes Advanced care planning 20 minutes Condition guarded Orders for PICC line placed, repeat blood cultures ordered Plan discussed with: Patient My Orders Orders - ROWENA MEREDITH MD Procedure Category Date Status Time * Infectious [place]- Dr. MARROQUIN 10/19/24 Transmitted Curt Richmond 09:14 Date of Service: Oct 20, 2024 Billing Provider: ROWENA MEREDITH MD Common Visit Codes: [id number] CARE 30-74 MIN ROWENA MEREDITH MD Oct 20, 2024 08:43
[2024-10-20 13:33] LABS: INR 1.03 (0.9-1.15); Prothrombin Time 10.9 sec (9.3-11.8)
--- NOTE | 2024-10-20 15:38 | DVHPN2 ---
Progress Note Date Seen: Oct 20, 2024 Medical Necessity Reason Pt with a Central, PICC or Fol: Yes The following are medically ne: Medina Catheter Subjective Patient reports: No new complaints, Feels better Review of Systems: HEENT:Normal, CVS:Normal, RESPIRATORY:Normal, GI:Normal, :Normal, MSK:Abnormal, NEURO:Normal Objective vital signs Vital Sign Date Time Temp Pulse Resp B/P (MAP) Pulse Ox O2 Delivery O2 Flow Rate FiO2 10/20/24 14:09 84 18 146/76 10/20/24 12:55 97.8 98 97.8 10/20/24 08:00 Oxymizer 10 N/A Total Intake and Output 10/19/24 10/19/24 10/20/24 15:00 23:00 07:00 Intake Total 340 ml 600 ml 800 ml Output Total 1250 ml 1700 ml Balance 340 ml -650 ml -900 ml medications Current Medications Medications Dose Ordered Sig/Olinda Route Start Time Stop Time Status Last Admin Dose Admin Vancomycin HCl 0 ml @ 0 mls/hr UD IV 10/13/24 23:30 Cancel Atorvastatin Calcium 40 mg HS PO 10/14/24 22:00 10/19/24 23:28 40 MG Amlodipine Besylate 5 mg DAILY PO 10/14/24 10:00 10/20/24 10:09 5 MG Diagnostic Test (Pha) 1 strip Q6HR 10/14/24 00:00 10/20/24 11:35 1 STRIP Insulin Human Regular Q6HR SC 10/14/24 00:00 10/20/24 11:27 4 UNITS Dextrose 50 ml UD PRN IV 10/13/24 23:30 Ondansetron HCl 4 mg Q4HP PRN IV 10/13/24 23:30 10/16/24 18:18 4 MG Acetaminophen 650 mg Q6HP PRN PO 10/13/24 23:30 10/18/24 03:15 650 MG Nitroglycerin 0.4 mg Q5MINP PRN SL 10/13/24 23:30 Morphine Sulfate 2 mg Q30M PRN IV 10/13/24 23:30 Hold Aspirin 81 mg DAILY PO 10/15/24 10:00 10/20/24 10:10 81 MG Heparin Sodium (Porcine) 5,000 units Q12HR SC 10/15/24 10:00 10/20/24 10:14 5,000 UNITS Furosemide 80 mg BIDD IV 10/16/24 07:30 10/20/24 06:28 80 MG Hydromorphone HCl 2 mg Q4HPRN PRN IV 10/17/24 13:15 10/20/24 14:09 2 MG Acetaminophen/ Hydrocodone Bitart 1 tab Q6HP PRN PO 10/19/24 00:30 10/19/24 02:59 1 TAB Nafcillin Sodium 2 gm/Sodium Chloride 100 ml @ 100 mls/hr Q4H IV 10/20/24 01:15 10/20/24 13:27 100 MLS/HR Examination: GENERAL:Normal, HEENT:Normal, NECK:Normal, LUNGS:Normal, CVS:Normal, ABDOMEN:Normal, MSK:Abnormal, SKIN:Abnormal, NEURO:Normal, :Normal laboratory and microbiology Laboratory Tests 10/20/24 06:10 10/18/24 05:45 Test 10/20/24 06:10 Range/Units Serum Glucose 177 H 74-106 mg/dL Microbiology Date/Time Source Procedure Growth Status 10/19/24 14:56 Blood Blood Culture - Preliminary NO GROWTH AFTER 24 HOURS OF INCUBATION. Resulted 10/15/24 13:47 Nose MRSA Screen - Final Complete 10/13/24 22:00 Voided Urine Urine Culture - Final Complete Problem List/Assessment/Plan Problem List/Assessment/Plan Acute kidney injury likely septic ATN+(vanc +zosyn )nephrotoxicity Baseline renal function is normal Sepsis due to bacteremia; STaph Urinary tract infection Syncope Obstructive sleep apnea severe proteinuria likely due to Dm2 EF 55% grade 1 diatolic recs continue lasix Hd treatment today--IR consult for cath replacement ID stopped vanc and zosyn and started nafcillin monitor for renal recovery ,, blood cx need to be neg for 72 hrs for tunneled cath placement if no recovery in renal function k replace prn uop 2900 cc Plan discussed with: Patient My Orders My Orders Orders - NAOMI AKERS MD Procedure Category Date Status Time * Radiologist Consult CONS 10/20/24 Transmitted 08:16 Communication Order ORDERS 10/20/24 Transmitted 13:27 Dietary Evaluation Review Comments: 1. Consider adding nephrovite 2. Consider adding renal to diet restrictions 3. Consider adding Nepro shake if pt with low PO intake Expected Outcomes/Goals: 1. Pt will consume >75% of estimated needs within 3-5 days NAOMI AKERS MD Oct 20, 2024 15:38
[2024-10-20] MEDS: LIDOCAINE 2%HCL (LOCAL ANESTH.) INJ 20ML MDV ONE (16:44)
[2024-10-20] MEDS: HEPARIN SODIUM (PORCINE) 5000 UNITS/ML 1ML VIAL ONE (16:44)
[2024-10-20 20:06] LABS: Cytoplasmic (C-ANCA) <1:20 titer (Neg:<1:20); Perinuclear (P-ANCA) <1:20 titer (Neg:<1:20)
--- NOTE | 2024-10-20 22:41 | DVHPN2 ---
Consult Progress Note Date Seen: Oct 20, 2024 Subjective Patient reports: Feels better (last fever was 10/15 no new fevers since. Has less fluid in belly and legs, less crackles in lungs and remains on 10 liters nasal canula and a new internal capital catheter for dialysis . ) Objective vital signs Vital Sign Date Time Temp Pulse Resp B/P (MAP) Pulse Ox O2 Delivery O2 Flow Rate FiO2 10/20/24 21:38 93 20 131/67 10/20/24 20:47 98.6 93 98.6 10/20/24 08:00 Oxymizer 10 N/A Total Intake and Output 10/19/24 10/19/24 10/20/24 15:00 23:00 07:00 Intake Total 340 ml 600 ml 800 ml Output Total 1250 ml 1700 ml Balance 340 ml -650 ml -900 ml medications Current Medications Medications Dose Ordered Sig/Olinda Route Start Time Stop Time Status Last Admin Dose Admin Vancomycin HCl 0 ml @ 0 mls/hr UD IV 10/13/24 23:30 Cancel Atorvastatin Calcium 40 mg HS PO 10/14/24 22:00 10/20/24 21:17 40 MG Amlodipine Besylate 5 mg DAILY PO 10/14/24 10:00 10/20/24 10:09 5 MG Diagnostic Test (Pha) 1 strip Q6HR 10/14/24 00:00 10/20/24 18:00 1 STRIP Insulin Human Regular Q6HR SC 10/14/24 00:00 10/20/24 18:00 3 UNITS Dextrose 50 ml UD PRN IV 10/13/24 23:30 Ondansetron HCl 4 mg Q4HP PRN IV 10/13/24 23:30 10/16/24 18:18 4 MG Acetaminophen 650 mg Q6HP PRN PO 10/13/24 23:30 10/18/24 03:15 650 MG Nitroglycerin 0.4 mg Q5MINP PRN SL 10/13/24 23:30 Morphine Sulfate 2 mg Q30M PRN IV 10/13/24 23:30 Hold Aspirin 81 mg DAILY PO 10/15/24 10:00 10/20/24 10:10 81 MG Heparin Sodium (Porcine) 5,000 units Q12HR SC 10/15/24 10:00 10/20/24 21:28 5,000 UNITS Furosemide 80 mg BIDD IV 10/16/24 07:30 10/20/24 18:07 80 MG Hydromorphone HCl 2 mg Q4HPRN PRN IV 10/17/24 13:15 10/20/24 21:38 2 MG Acetaminophen/ Hydrocodone Bitart 1 tab Q6HP PRN PO 10/19/24 00:30 10/19/24 02:59 1 TAB Nafcillin Sodium 2 gm/Sodium Chloride 100 ml @ 100 mls/hr Q4H IV 10/20/24 01:15 10/20/24 21:17 100 MLS/HR Physical Exam: - General: Morbidly obese. - Neck: Supple. No masses. - HEENT: PERRL. Normal lids and conjunctiva. Moist mucous membranes. Oropharynx without lesions, exudates, or excessive erythema. Normal appearance of the external aspects of the nose and ears. Right maxillary sinus tenderness. - Heart: Regular rhythm, normal rate. No murmur. No lower extremity edema. - Lungs: Crackles present bilaterally. - Abdomen: Mild distention. Soft. Non-tender. Non-distended. No masses or abdominal hernia. - MSK: Reports bilateral knee pain and back pain. No digital cyanosis. Normal strength and tone in all four limbs. - Skin: Warm and dry. Right lower extremity cellulitis extending from ankle to great toe with drainage from a 1.1 cm ulcer. Left foot wounds on great toe and second toe, appearing chronic with ulcers. - Neuro: Alert. No facial droop or slurred speech. Extra-ocular movements intact. Sensation intact to soft touch in all four limbs. - Psych: Appropriate mood. Full affect. Oriented to person, place, time, and situation. laboratory and microbiology Laboratory Tests 10/20/24 06:10 10/18/24 05:45 Test 10/20/24 06:10 Range/Units Serum Glucose 177 H 74-106 mg/dL Problem List/Assessment/Plan Problems(with codes): (1) Occluded PICC line (2) MSSA (methicillin susceptible Staphylococcus aureus) septicemia (3) Cellulitis of right lower extremity (4) Leukocytosis, unspecified (5) Metabolic encephalopathy (6) Diabetic foot ulcer (7) Cellulitis (8) Fever (9) Sepsis Problem List/Assessment/Plan ID Problem List: - MSSA bacteremia - Right foot cellulitis - Bilateral non-healing diabetic foot ulcers - Uncontrolled diabetes mellitus - Acute on chronic kidney disease - Morbid obesity - Dyslipidemia - Hypertension - History of stroke - Hypoxia - Severe sepsis - Lactic acidosis - Altered mental status - Hepatic steatosis - Possible need for further debridement Assessment This is a 69-year-old male with a past medical history of uncontrolled diabetes mellitus, hypertension, chronic kidney disease (baseline creatinine ~2), dyslipidemia, stroke, thyroid disease, morbid obesity, and multiple chronic non- healing diabetic foot ulcers on both feet. He has undergone prior amputations of the left and right great toes. The patient presents with an unwitnessed syncopal episode in the bathroom lasting approximately 4 hours. He denies any pre- syncopal symptoms, shortness of breath, fevers, or chills prior to the episode. On admission, the patient was febrile to 102.8F and hypoxic, requiring supplemental oxygen. Examination revealed right lower extremity cellulitis extending from the ankle to the great toe with drainage from a 1.1 cm ulcer. Laboratory findings include significant leukocytosis (WBC 36), anemia (Hb 12.2), worsening renal function (creatinine increased from baseline 2.61 to 2.7, BUN elevated to 89-92), hyperglycemia (glucose 279), and elevated lactic acid (4.5). Blood cultures grew MSSA on the 14th, and wound cultures from the right great toe grew MSSA on the 13th. Imaging studies showed right maxillary sinus opacification concerning for acute sinusitis. Left foot CT demonstrated mild soft tissue swelling without abscess or osteomyelitis. Right foot MRI indicated soft tissue inflammatory changes consistent with possible cellulitis but no abscess or osteomyelitis. The patient developed progressive hypoxia requiring up to 10 liters of supplemental oxygen. A V/Q scan ruled out pulmonary embolism. He underwent dialysis for worsening renal failure and volume overload, with placement of a dialysis catheter. 10/20:Blood cultures negative for 24 hours , not having an intolerance to nepsillin Plan: - Antibiotic Management: - Continue nafcillin for MSSA bacteremia and right foot cellulitis. - Monitor for efficacy and potential adverse effects. nafcillin will add volume but is less renal toxic overall - Renal Function: - Monitor renal function closely. - Avoid nephrotoxic medications. - prior to placement of permanent dialysis catheter will need to ensure clearance of bacteremia - Infectious Disease and Debridement: - defer to podiatry for potential further debridement of the right foot infection. - If bacteremia persists, consider transesophageal echocardiogram (VANDANA) to rule out endocarditis. - will fu on blood cultures - Diabetes Management: - Optimize glycemic control with insulin therapy. keep BG<180 - Monitor blood glucose levels closely. - Respiratory Support: - Continue supplemental oxygen therapy. - Monitor oxygen saturation and adjust oxygen delivery as needed. - Sepsis Management: - Monitor lactic acid levels. - Provide appropriate supportive care for severe sepsis. Wound Care: - Continue wound care for bilateral foot ulcers. - Coordinate with wound care specialists and home health services. Other Considerations: - Address morbid obesity with nutritional support and weight management strategies. - Monitor liver function tests due to hepatic steatosis. Plan discussed with: Other Dietary Evaluation Review Comments: 1. Consider adding nephrovite 2. Consider adding renal to diet restrictions 3. Consider adding Nepro shake if pt with low PO intake Expected Outcomes/Goals: 1. Pt will consume >75% of estimated needs within 3-5 days KINGS ALVAREZ MD Oct 20, 2024 22:41
[2024-10-21] VITALS (8 sets, daily range): BP systolic 118–166; BP diastolic 64–94; PULSE 71–104; RESP 18–24; TEMP 97.8–99; O2SAT 93–99
--- NOTE | 2024-10-21 09:35 | DVHPN2 ---
Reviewed: Care Plan, H&P, Labs, Medications, Previous Orders, Radiology Changes from previous H/P or p: No Changes Objective Vitals Vital Signs Date Time Temp Pulse Resp B/P (MAP) Pulse Ox O2 Delivery O2 Flow Rate FiO2 10/21/24 06:27 98 20 130/76 10/21/24 04:50 97.8 93 97.8 10/20/24 20:00 Oxymizer 10 N/A Intake/Output Intake and Output 10/21/24 06:59 Intake Total 1100 ml Output Total 4800 ml Balance -3700 ml Intake Oral 800 ml IV Total 300 ml Output Urine Total 4800 ml Medications Current Medications Medications Dose Ordered Sig/Olinda Route Start Time Stop Time Status Last Admin Dose Admin Vancomycin HCl 0 ml @ 0 mls/hr UD IV 10/13/24 23:30 Cancel Atorvastatin Calcium 40 mg HS PO 10/14/24 22:00 10/20/24 21:17 40 MG Amlodipine Besylate 5 mg DAILY PO 10/14/24 10:00 10/20/24 10:09 5 MG Diagnostic Test (Pha) 1 strip Q6HR 10/14/24 00:00 10/21/24 06:12 1 STRIP Insulin Human Regular Q6HR SC 10/14/24 00:00 10/21/24 06:16 4 UNITS Dextrose 50 ml UD PRN IV 10/13/24 23:30 Ondansetron HCl 4 mg Q4HP PRN IV 10/13/24 23:30 10/16/24 18:18 4 MG Acetaminophen 650 mg Q6HP PRN PO 10/13/24 23:30 10/18/24 03:15 650 MG Nitroglycerin 0.4 mg Q5MINP PRN SL 10/13/24 23:30 Morphine Sulfate 2 mg Q30M PRN IV 10/13/24 23:30 Hold Aspirin 81 mg DAILY PO 10/15/24 10:00 10/20/24 10:10 81 MG Heparin Sodium (Porcine) 5,000 units Q12HR SC 10/15/24 10:00 10/20/24 21:28 5,000 UNITS Furosemide 80 mg BIDD IV 10/16/24 07:30 10/21/24 05:54 80 MG Hydromorphone HCl 2 mg Q4HPRN PRN IV 10/17/24 13:15 10/21/24 05:57 2 MG Acetaminophen/ Hydrocodone Bitart 1 tab Q6HP PRN PO 10/19/24 00:30 10/19/24 02:59 1 TAB Nafcillin Sodium 2 gm/Sodium Chloride 100 ml @ 100 mls/hr Q4H IV 10/20/24 01:15 10/21/24 05:55 100 MLS/HR Laboratory Results Laboratory Tests 10/18/24 05:45 10/20/24 06:10 Coagulation Test 10/20/24 12:53 Prothrombin Time 10.9 sec (9.3-11.8) Prothrombin Time INR 1.03 (0.9-1.15) Urinalysis Test 10/13/24 22:00 10/14/24 17:27 Urine Color Yellow (Yellow) Urine Clarity Turbid (Clear) H Urine pH 6.0 (5.0-9.0) Urine Specific [place] 1.020 (1.001-1.035) Urine Protein 3+ (Negative) H Urine Ketones Negative (Negative) Urine Blood 3+ /uL (Negative) H Urine Nitrite Negative (Negative) Urine Bilirubin Negative (Negative) Urine Urobilinogen Normal mg/dL (Negative) Urine Leukocyte Esterase Negative /uL (Negative) Urine RBC 2 /hpf (0 - 3) Urine WBC 4 /hpf (0 - 3) Urine Squamous Epithelial Cells Few /hpf (<5) Urine Amorphous Crystals Few /hpf (None Seen) Urine Bacteria Mod /hpf (None Seen) H Urine Glucose 4+ mg/dL (Normal) H Urine Creatinine 77.85 mg/dL (30.0-125.0) Urine Sodium 24 mmol/L (40-220) L Urine Total Protein 647.5 mg/dL (1-14) H Microbiology Microbiology Date/Time Source Procedure Growth Status 10/19/24 14:56 Blood Blood Culture - Preliminary NO GROWTH AFTER 24 HOURS OF INCUBATION. Resulted 10/15/24 13:47 Nose MRSA Screen - Final Complete 10/13/24 22:00 Voided Urine Urine Culture - Final Complete Labs and/or images reviewed: Labs reviewed by me, Image(s) reviewed by me Assessment/Plan Assessment/Plan Septic shock with elevated white count altered mental status: Bacteremia with MSSA, ID consult by Dr. Phong Richmond appreciated, vancomycin and Zosyn discontinued started on nafcillin 4 g IV q.4 hours Syncope possibly secondary to sepsis: CT head negative, chest x-ray negative, C- spine CT negative, echocardiogram 55 percent ejection fraction, carotid ultrasound negative, Neurology consult appreciated EEG normal, Cardiology consult by Dr. Diaz appreciated, no further cardiac workup Non STEMI type 2 secondary to sepsis, echo 10/14/2024 shows 55 % ejection fraction Acute kidney injury hemodynamically mediated; multifactorial, BUN creatinine 44 and 2.61 at the time of admission, now worsening 68/6.94, closely following, patient received hemodialysis on 10/16/2024, bicarb drip discontinued Lasix continued Left foot infection with MSSA: Continue nafcillin Acute metabolic encephalopathy Elevated D-dimer 5.50: DVT ruled out , PE ruled out Chronic Left foot infection Consult for Dr. Watts appreciated, MRI left foot shows no osteomyelitis of the 1st metatarsal stump or abscess History of left 1st toe amputation Left knee x-ray negative Chronic calcaneus fracture right foot Hepatomegaly Hypertension Obstructive Sleep apnea: CPAP Uncontrolled diabetes: Insulin sliding scale Hypercholesterolemia Hypothyroidism History of CVA Chronic calcaneal fracture right foot History of coronary artery disease Diabetic medial left foot ulcer: Wound consult, wound cultures growing MSSA on nafcillin Right IJ dialysis cath in place Moderate malnutrition Pain management: On Dilaudid IV Time spent 65 minutes Advanced care planning 20 minutes Condition guarded Orders for PICC line placed, repeat blood cultures 10/19/24 negative Plan discussed with: Patient Date of Service: Oct 21, 2024 Billing Provider: ROWENA MEREDITH MD Common Visit Codes: 20046-[id number] CARE 30-74 MIN ROWENA MEREDITH MD Oct 21, 2024 09:35
--- NOTE | 2024-10-21 10:56 | DVHPN2 ---
Progress Note Date Seen: Oct 21, 2024 Medical Necessity Reason Pt with a Central, PICC or Fol: Yes The following are medically ne: Medina Catheter Subjective Patient reports: No new complaints Review of Systems: HEENT:Normal, CVS:Normal, RESPIRATORY:Normal, GI:Normal, :Normal, MSK:Normal, NEURO:Normal Objective vital signs Vital Sign Date Time Temp Pulse Resp B/P (MAP) Pulse Ox O2 Delivery O2 Flow Rate FiO2 10/21/24 10:40 152/82 10/21/24 10:38 102 24 10/21/24 09:00 98.2 99 98.2 10/20/24 20:00 Oxymizer 10 N/A Total Intake and Output 10/20/24 10/20/24 10/21/24 15:00 23:00 07:00 Intake Total 200 ml 100 ml 800 ml Output Total 1700 ml 3100 ml Balance 200 ml -1600 ml -2300 ml medications Current Medications Medications Dose Ordered Sig/Olinda Route Start Time Stop Time Status Last Admin Dose Admin Vancomycin HCl 0 ml @ 0 mls/hr UD IV 10/13/24 23:30 Cancel Atorvastatin Calcium 40 mg HS PO 10/14/24 22:00 10/20/24 21:17 40 MG Amlodipine Besylate 5 mg DAILY PO 10/14/24 10:00 10/21/24 10:40 5 MG Diagnostic Test (Pha) 1 strip Q6HR 10/14/24 00:00 10/21/24 06:12 1 STRIP Insulin Human Regular Q6HR SC 10/14/24 00:00 10/21/24 06:16 4 UNITS Dextrose 50 ml UD PRN IV 10/13/24 23:30 Ondansetron HCl 4 mg Q4HP PRN IV 10/13/24 23:30 10/16/24 18:18 4 MG Acetaminophen 650 mg Q6HP PRN PO 10/13/24 23:30 10/18/24 03:15 650 MG Nitroglycerin 0.4 mg Q5MINP PRN SL 10/13/24 23:30 Morphine Sulfate 2 mg Q30M PRN IV 10/13/24 23:30 Hold Aspirin 81 mg DAILY PO 10/15/24 10:00 10/21/24 10:00 81 MG Heparin Sodium (Porcine) 5,000 units Q12HR SC 10/15/24 10:00 10/21/24 10:37 5,000 UNITS Furosemide 80 mg BIDD IV 10/16/24 07:30 10/21/24 05:54 80 MG Hydromorphone HCl 2 mg Q4HPRN PRN IV 10/17/24 13:15 10/21/24 10:38 2 MG Acetaminophen/ Hydrocodone Bitart 1 tab Q6HP PRN PO 10/19/24 00:30 10/19/24 02:59 1 TAB Nafcillin Sodium 2 gm/Sodium Chloride 100 ml @ 100 mls/hr Q4H IV 10/20/24 01:15 10/21/24 05:55 100 MLS/HR Examination: GENERAL:Normal, HEENT:Normal, NECK:Normal, LUNGS:Abnormal, CVS:Normal, ABDOMEN:Normal, MSK:Abnormal, SKIN:Abnormal, NEURO:Normal, :Normal laboratory and microbiology Laboratory Tests 10/20/24 06:10 10/18/24 05:45 Test 10/20/24 06:10 Range/Units Serum Glucose 177 H 74-106 mg/dL Microbiology Date/Time Source Procedure Growth Status 10/20/24 09:35 Blood Blood Culture - Preliminary NO GROWTH AFTER 24 HOURS OF INCUBATION. Resulted 10/15/24 13:47 Nose MRSA Screen - Final Complete 10/13/24 22:00 Voided Urine Urine Culture - Final Complete Problem List/Assessment/Plan Problem List/Assessment/Plan Acute kidney injury likely septic ATN+(vanc +zosyn )nephrotoxicity Baseline renal function is normal Sepsis due to bacteremia; STaph Urinary tract infection Syncope Obstructive sleep apnea severe proteinuria likely due to Dm2 EF 55% grade 1 diatolic recs continue lasix iv Hd treatment today--for solute clearance monitor for renal recovery ,, uop improving -- if renal function improves will not need tunneled cath and HD going forwardd k replace prn uop 4 L improving with lasix Plan discussed with: Patient My Orders My Orders Orders - NAMOI AKERS MD Procedure Category Date Status Time Communication Order ORDERS 10/20/24 Transmitted 13:27 Hemodialysis Orders ORDERS 10/21/24 Transmitted 09:25 Chest Portable XY 10/21/24 Logged 10:50 Basic Metabolic Panel LAB 10/22/24 Verified 05:00 Basic Metabolic Panel LAB 10/23/24 Verified 05:00 Basic Metabolic Panel LAB 10/24/24 Verified 05:00 Basic Metabolic Panel LAB 10/25/24 Verified 05:00 Basic Metabolic Panel LAB 10/26/24 Verified 05:00 Basic Metabolic Panel LAB 10/27/24 Verified 05:00 Basic Metabolic Panel LAB 10/28/24 Verified 05:00 Basic Metabolic Panel LAB 10/21/24 Transmitted 10:52 Dietary Evaluation Review Comments: 1. Consider adding nephrovite 2. Consider adding renal to diet restrictions 3. Consider adding Nepro shake if pt with low PO intake Expected Outcomes/Goals: 1. Pt will consume >75% of estimated needs within 3-5 days NAOMI AKERS MD Oct 21, 2024 10:56
--- NOTE | 2024-10-21 11:29 | DVH ---
CHEST RADIOGRAPH Indication: edema Technique: Single frontal view of the chest was obtained COMPARISON: XY CHEST XRAY 1 VIEW on DOS: 10/16/24, XY CHEST XRAY 1 VIEW on DOS: 10/15/24, XY CHEST PO RTABLE on DOS: 10/13/24 FINDINGS: Lines and Tubes: Right central venous catheter in satisfactory position. Lungs: Pulmonary vascular congestion. Pleura: No effusion. No pneumothorax. Cardiomediastinal contours: Cardiomegaly. Bones: Unremarkable IMPRESSION: Pulmonary vascular congestion, unchanged.
[2024-10-21 12:34] LABS: Chloride 95 mmol/L (98-107); Potassium 3.4 mmol/L (3.5-5.1); Sodium 135 mmol/L (136-145)
[2024-10-21 12:35] LABS: Anion Gap 15 (5-15); Calcium 8.8 mg/dL (8.7-10.4); Carbon Dioxide 25 mmol/L (20-31)
[2024-10-21 12:40] LABS: BUN/Creatinine Ratio 11.4 (10.0-20.0); Glucose 204 mg/dL (74-106)
[2024-10-21 12:46] LABS: Blood Urea Nitrogen 94 mg/dL (9-23)
[2024-10-21] MEDS ORDERED: EPOETIN ALFA-EPBX 4,000 UNIT/ML VIAL SC SCH (19:45)
[2024-10-21] MEDS: EPOETIN ALFA-EPBX 4,000 UNIT/ML VIAL SC SCH (21:51)
[2024-10-21] MEDS: ceFAZolin 1GM/50ML 50 ML IV SCH (23:42)
[2024-10-22] VITALS (7 sets, daily range): BP systolic 132–163; BP diastolic 63–76; PULSE 5–99; RESP 18–23; TEMP 97.6–98.8; O2SAT 94–97
[2024-10-22 06:06] LABS: Red Cell Distribution Width 18.1 % (11.8-14.3)
[2024-10-22 06:09] LABS: Hematocrit 29.3 % (41.0-53.0); Mean Corpuscular Hemoglobin 26.5 pg (28.0-32.0); Mean Corpuscular Hgb Conc. 34.1 g/dL (32.0-36.0); Mean Corpuscular Volume 77.7 fL (80.0-100.0); Platelet Count (auto) 311 10^3/uL (140-450); Red Blood Cells 3.77 10^6/uL (4.5-5.90); White Blood Cell 16.1 10^3/uL (4.4-10.8)
[2024-10-22 06:13] LABS: Chloride 92 mmol/L (98-107); Potassium 3.2 mmol/L (3.5-5.1); Sodium 132 mmol/L (136-145)
[2024-10-22 06:14] LABS: Anion Gap 13 (5-15); Calcium 8.8 mg/dL (8.7-10.4); Carbon Dioxide 27 mmol/L (20-31)
[2024-10-22 06:19] LABS: BUN/Creatinine Ratio 10.6 (10.0-20.0); Glucose 214 mg/dL (74-106)
[2024-10-22 06:26] LABS: Blood Urea Nitrogen 68 mg/dL (9-23)
[2024-10-22 06:34] LABS: Band Neutrophils % (manual) 0; Basophils % (manual) 0 (0.0-2.0); Blast Cells 0; Eosinophils % (manual) 0 (0-7); Metamyelocytes % 0; Myelocytes % 0; Promyelocytes % 0; Reactive Lymphocytes 0
[2024-10-22 07:46] LABS: Lymphocytes % (manual) 5 (10.0-50.0); Monocytes % (manual) 10 (0-12); Platelet Estimate Adequate
--- NOTE | 2024-10-22 09:41 | DVHPN2 ---
Reviewed: Care Plan, H&P, Labs, Medications, Previous Orders, Radiology Changes from previous H/P or p: No Changes Objective Vitals Vital Signs Date Time Temp Pulse Resp B/P (MAP) Pulse Ox O2 Delivery O2 Flow Rate FiO2 10/22/24 05:52 83 20 148/80 10/22/24 01:00 98.3 94 98.3 10/21/24 20:00 Oxymizer 10 N/A Intake/Output Intake and Output 10/22/24 07:00 Intake Total 1860 ml Output Total 1300 ml Balance 560 ml Intake Oral 1760 ml IV Total 100 ml Output Urine Total 1300 ml # Bowel Movements 1 Medications Current Medications Medications Dose Ordered Sig/Olinda Route Start Time Stop Time Status Last Admin Dose Admin Vancomycin HCl 0 ml @ 0 mls/hr UD IV 10/13/24 23:30 Cancel Atorvastatin Calcium 40 mg HS PO 10/14/24 22:00 10/21/24 21:02 40 MG Amlodipine Besylate 5 mg DAILY PO 10/14/24 10:00 10/21/24 10:40 5 MG Diagnostic Test (Pha) 1 strip Q6HR 10/14/24 00:00 10/22/24 05:22 1 STRIP Insulin Human Regular Q6HR SC 10/14/24 00:00 10/22/24 05:27 4 UNITS Dextrose 50 ml UD PRN IV 10/13/24 23:30 Ondansetron HCl 4 mg Q4HP PRN IV 10/13/24 23:30 10/16/24 18:18 4 MG Acetaminophen 650 mg Q6HP PRN PO 10/13/24 23:30 10/18/24 03:15 650 MG Nitroglycerin 0.4 mg Q5MINP PRN SL 10/13/24 23:30 Morphine Sulfate 2 mg Q30M PRN IV 10/13/24 23:30 Hold Aspirin 81 mg DAILY PO 10/15/24 10:00 10/21/24 10:00 81 MG Heparin Sodium (Porcine) 5,000 units Q12HR SC 10/15/24 10:00 10/21/24 10:37 5,000 UNITS Furosemide 80 mg BIDD IV 10/16/24 07:30 10/22/24 05:20 80 MG Hydromorphone HCl 2 mg Q4HPRN PRN IV 10/17/24 13:15 10/22/24 05:22 2 MG Acetaminophen/ Hydrocodone Bitart 1 tab Q6HP PRN PO 10/19/24 00:30 10/19/24 02:59 1 TAB Epoetin Bran-epbx 8,000 unit TUTHSA@2100 SC 10/21/24 19:45 10/21/24 21:51 8,000 UNIT Cefazolin Sodium 50 ml @ 100 mls/hr DAILY@2100 IV 10/21/24 23:30 10/21/24 23:42 100 MLS/HR Laboratory Results Laboratory Tests 10/22/24 05:28 Chemistry Test 10/21/24 12:00 10/22/24 05:28 Calcium Level 8.8 mg/dL (8.7-10.4) 8.8 mg/dL (8.7-10.4) Urinalysis Test 10/13/24 22:00 10/14/24 17:27 Urine Color Yellow (Yellow) Urine Clarity Turbid (Clear) H Urine pH 6.0 (5.0-9.0) Urine Specific [place] 1.020 (1.001-1.035) Urine Protein 3+ (Negative) H Urine Ketones Negative (Negative) Urine Blood 3+ /uL (Negative) H Urine Nitrite Negative (Negative) Urine Bilirubin Negative (Negative) Urine Urobilinogen Normal mg/dL (Negative) Urine Leukocyte Esterase Negative /uL (Negative) Urine RBC 2 /hpf (0 - 3) Urine WBC 4 /hpf (0 - 3) Urine Squamous Epithelial Cells Few /hpf (<5) Urine Amorphous Crystals Few /hpf (None Seen) Urine Bacteria Mod /hpf (None Seen) H Urine Glucose 4+ mg/dL (Normal) H Urine Creatinine 77.85 mg/dL (30.0-125.0) Urine Sodium 24 mmol/L (40-220) L Urine Total Protein 647.5 mg/dL (1-14) H Microbiology Microbiology Date/Time Source Procedure Growth Status 10/20/24 09:35 Blood Blood Culture - Preliminary NO GROWTH AFTER 24 HOURS OF INCUBATION. Resulted 10/15/24 13:47 Nose MRSA Screen - Final Complete 10/13/24 22:00 Voided Urine Urine Culture - Final Complete Labs and/or images reviewed: Labs reviewed by me, Image(s) reviewed by me Assessment/Plan Assessment/Plan Septic shock with elevated white count altered mental status: Bacteremia with MSSA, ID consult by Dr. Phong Richmond appreciated, vancomycin and Zosyn discontinued started on nafcillin 4 g IV q.4 hours Syncope possibly secondary to sepsis: CT head negative, chest x-ray negative, C- spine CT negative, echocardiogram 55 percent ejection fraction, carotid ultrasound negative, Neurology consult appreciated EEG normal, Cardiology consult by Dr. Diaz appreciated, no further cardiac workup Non STEMI type 2 secondary to sepsis, echo 10/14/2024 shows 55 % ejection fraction Acute kidney injury hemodynamically mediated; multifactorial, BUN creatinine 44 and 2.61 at the time of admission, now worsening 68/6.94, closely following, patient received hemodialysis on 10/16/2024, bicarb drip discontinued Lasix continued Left foot infection with MSSA: Continue nafcillin Acute metabolic encephalopathy Elevated D-dimer 5.50: DVT ruled out , PE ruled out Chronic Left foot infection Consult for Dr. Watts appreciated, MRI left foot shows no osteomyelitis of the 1st metatarsal stump or abscess History of left 1st toe amputation Left knee x-ray negative Chronic calcaneus fracture right foot Hepatomegaly Hypertension Obstructive Sleep apnea: CPAP Uncontrolled diabetes: Insulin sliding scale Hypercholesterolemia Hypothyroidism History of CVA Chronic calcaneal fracture right foot History of coronary artery disease Diabetic medial left foot ulcer: Wound consult, wound cultures growing MSSA on nafcillin Right IJ dialysis cath in place Moderate malnutrition Pain management: On Dilaudid IV Time spent 65 minutes Advanced care planning 20 minutes Condition guarded Repeat blood cultures 10/20/2024 negative Plan discussed with: Patient My Orders Orders - ROWENA MEREDITH MD Procedure Category Date Status Time * Wound Consult CONS 10/21/24 Transmitted Date of Service: Oct 22, 2024 Billing Provider: RWOENA MEREDITH MD Common Visit Codes: 59934-VFIXRIAP CARE 30-74 MIN ROWENA MEREDITH MD Oct 22, 2024 09:41
--- NOTE | 2024-10-22 10:25 | DVH ---
XY Insertion of Venous Cath, HISTORY: HD CATH PLACEMENT, due to nonfuncation prior HD cath. PROCEDURE: Informed consent was obtained. The patient was placed supine on the interventional table. A limited localization ultrasound of the right neck base was obtained. The right neck base were prepp ed with chlorhexidine which was allowed to dry and draped in the usual sterile fashion. Time out was performed. The skin and the soft tissues were infiltrated with 1% Lidocaine . With real-time ultraso und guidance, the internal jugular vein was accessed with a micropuncture kit. Fluoroscopy was used t o advance a guidewire through the internal jugular vein into the inferior vena cava. Following serial dilatation, a 12.5 Japanese x 20 cm hemodialysis catheter was placed into the right atrium. The cathet er tip position was confirmed with fluoroscopy. There was satisfactory flow in both lumens. The robert ter lumens were flushed with saline and heparin was left indwelling in the catheter. A post-procedure image of the chest was obtained. The catheter was sutured at the skin surface and exit site also dr essed sterilely. The prior HD catheter was removed and manual pressure held to hemostasis. No immedia te complication was identified. FLUOROSCOPY TIME: 0.8 minutes. AK 11 mGy FINDINGS: Widely patent right IJV. Post procedure image demonstrates smooth course of the hemodialysi s catheter with the tip in the right atrium. IMPRESSION: Placement of 12.5 Japanese Madhukar, 20 cm long hemodialysis catheter through right internal jugular ve in. Plan: Please contact IR for conversion to tunneled if needed.
--- NOTE | 2024-10-22 12:06 | DVHPN2 ---
Consult Progress Note Date Seen: Oct 21, 2024 Subjective Patient reports: Other (still short of breath , 10 liters nasal canula , still very fluid overloaded in the abdomen adn lungs) Objective vital signs Vital Sign Date Time Temp Pulse Resp B/P (MAP) Pulse Ox O2 Delivery O2 Flow Rate FiO2 10/22/24 11:21 77 22 163/76 10/22/24 09:00 98.1 94 98.1 10/21/24 20:00 Oxymizer 10 N/A Total Intake and Output 10/21/24 10/21/24 10/22/24 15:00 23:00 07:00 Intake Total 100 ml 300 ml 1460 ml Output Total 1300 ml Balance 100 ml -1000 ml 1460 ml medications Current Medications Medications Dose Ordered Sig/Olinda Route Start Time Stop Time Status Last Admin Dose Admin Vancomycin HCl 0 ml @ 0 mls/hr UD IV 10/13/24 23:30 Cancel Atorvastatin Calcium 40 mg HS PO 10/14/24 22:00 10/21/24 21:02 40 MG Amlodipine Besylate 5 mg DAILY PO 10/14/24 10:00 10/22/24 11:21 5 MG Diagnostic Test (Pha) 1 strip Q6HR 10/14/24 00:00 10/22/24 11:22 1 STRIP Insulin Human Regular Q6HR SC 10/14/24 00:00 10/22/24 11:30 6 UNITS Dextrose 50 ml UD PRN IV 10/13/24 23:30 Ondansetron HCl 4 mg Q4HP PRN IV 10/13/24 23:30 10/16/24 18:18 4 MG Acetaminophen 650 mg Q6HP PRN PO 10/13/24 23:30 10/18/24 03:15 650 MG Nitroglycerin 0.4 mg Q5MINP PRN SL 10/13/24 23:30 Morphine Sulfate 2 mg Q30M PRN IV 10/13/24 23:30 Hold Aspirin 81 mg DAILY PO 10/15/24 10:00 10/22/24 11:21 81 MG Heparin Sodium (Porcine) 5,000 units Q12HR SC 10/15/24 10:00 10/21/24 10:37 5,000 UNITS Furosemide 80 mg BIDD IV 10/16/24 07:30 10/22/24 05:20 80 MG Hydromorphone HCl 2 mg Q4HPRN PRN IV 10/17/24 13:15 10/22/24 11:21 2 MG Acetaminophen/ Hydrocodone Bitart 1 tab Q6HP PRN PO 10/19/24 00:30 10/19/24 02:59 1 TAB Epoetin Bran-epbx 8,000 unit TUTHSA@2100 SC 10/21/24 19:45 10/21/24 21:51 8,000 UNIT Cefazolin Sodium 50 ml @ 100 mls/hr DAILY@2100 IV 10/21/24 23:30 10/21/24 23:42 100 MLS/HR Physical Exam: - General: Morbidly obese. - Neck: Supple. No masses. - HEENT: PERRL. Normal lids and conjunctiva. Moist mucous membranes. Oropharynx without lesions, exudates, or excessive erythema. Normal appearance of the external aspects of the nose and ears. Right maxillary sinus tenderness. - Heart: Regular rhythm, normal rate. No murmur. No lower extremity edema. - Lungs: Crackles present bilaterally. - Abdomen: Mild distention. Soft. Non-tender. Non-distended. No masses or abdominal hernia. - MSK: Reports bilateral knee pain and back pain. No digital cyanosis. Normal strength and tone in all four limbs. - Skin: Warm and dry. Right lower extremity cellulitis extending from ankle to great toe with drainage from a 1.1 cm ulcer. Left foot wounds on great toe and second toe, appearing chronic with ulcers. - Neuro: Alert. No facial droop or slurred speech. Extra-ocular movements intact. Sensation intact to soft touch in all four limbs. - Psych: Appropriate mood. Full affect. Oriented to person, place, time, and situation. laboratory and microbiology Laboratory Tests 10/22/24 05:28 Test 10/22/24 05:28 Range/Units Serum Glucose 214 H 74-106 mg/dL Problem List/Assessment/Plan Problems(with codes): (1) Occluded PICC line (2) Cellulitis of right lower extremity (3) MSSA (methicillin susceptible Staphylococcus aureus) septicemia (4) Leukocytosis, unspecified (5) Metabolic encephalopathy (6) Diabetic foot ulcer (7) Cellulitis Problem List/Assessment/Plan ID Problem List: - MSSA bacteremia - Right foot cellulitis - Bilateral non-healing diabetic foot ulcers - Uncontrolled diabetes mellitus - Acute on chronic kidney disease - Morbid obesity - Dyslipidemia - Hypertension - History of stroke - Hypoxia - Severe sepsis - Lactic acidosis - Altered mental status - Hepatic steatosis - Possible need for further debridement Assessment This is a 69-year-old male with a past medical history of uncontrolled diabetes mellitus, hypertension, chronic kidney disease (baseline creatinine ~2), dyslipidemia, stroke, thyroid disease, morbid obesity, and multiple chronic non- healing diabetic foot ulcers on both feet. He has undergone prior amputations of the left and right great toes. The patient presents with an unwitnessed syncopal episode in the bathroom lasting approximately 4 hours. He denies any pre- syncopal symptoms, shortness of breath, fevers, or chills prior to the episode. On admission, the patient was febrile to 102.8F and hypoxic, requiring supplemental oxygen. Examination revealed right lower extremity cellulitis extending from the ankle to the great toe with drainage from a 1.1 cm ulcer. Laboratory findings include significant leukocytosis (WBC 36), anemia (Hb 12.2), worsening renal function (creatinine increased from baseline 2.61 to 2.7, BUN elevated to 89-92), hyperglycemia (glucose 279), and elevated lactic acid (4.5). Blood cultures grew MSSA on the 14th, and wound cultures from the right great toe grew MSSA on the 13th. Imaging studies showed right maxillary sinus opacification concerning for acute sinusitis. Left foot CT demonstrated mild soft tissue swelling without abscess or osteomyelitis. Right foot MRI indicated soft tissue inflammatory changes consistent with possible cellulitis but no abscess or osteomyelitis. The patient developed progressive hypoxia requiring up to 10 liters of supplemental oxygen. A V/Q scan ruled out pulmonary embolism. He underwent dialysis for worsening renal failure and volume overload, with placement of a dialysis catheter. 10/20:Blood cultures negative for 24 hours , not having an intolerance to nepsillin 10/21: chest x-ray shows pulmonary vascular congestion that is unchanged , on 10 liters nasal canula, blood cultures have no growth to date after 48 hours Plan: - switch from nafcillin to anceph to reduce volume burden - have dialysis catheter placed by radiology - Renal Function: - Monitor renal function closely. - Avoid nephrotoxic medications. - prior to placement of permanent dialysis catheter will need to ensure clearance of bacteremia - Infectious Disease and Debridement: - defer to podiatry for potential further debridement of the right foot infection. - If bacteremia persists, consider transesophageal echocardiogram (VANDANA) to rule out endocarditis. - will fu on blood cultures - Diabetes Management: - Optimize glycemic control with insulin therapy. keep BG<180 - Monitor blood glucose levels closely. - Respiratory Support: - Continue supplemental oxygen therapy. - Monitor oxygen saturation and adjust oxygen delivery as needed. - Sepsis Management: - Monitor lactic acid levels. - Provide appropriate supportive care for severe sepsis. Wound Care: - Continue wound care for bilateral foot ulcers. - Coordinate with wound care specialists and home health services. Other Considerations: - Address morbid obesity with nutritional support and weight management strategies. - Monitor liver function tests due to hepatic steatosis. Plan discussed with: Other Dietary Evaluation Review Comments: 1. Consider adding nephrovite 2. Consider adding renal to diet restrictions 3. Consider adding Nepro shake if pt with low PO intake Expected Outcomes/Goals: 1. Pt will consume >75% of estimated needs within 3-5 days KINGS ALVAREZ MD Oct 22, 2024 12:06
--- NOTE | 2024-10-22 16:05 | DVHPN2 ---
Progress Note Date Seen: Oct 22, 2024 Medical Necessity Reason Pt with a Central, PICC or Fol: Yes The following are medically ne: [place] Catheter Subjective Review of Systems Pt receiving hemodialysis at this time. No new complaints. Patient reports: No new complaints, Feels better Objective vital signs Vital Sign Date Time Temp Pulse Resp B/P (MAP) Pulse Ox O2 Delivery O2 Flow Rate FiO2 10/22/24 13:00 97.6 95 23 142/72 (95) 97 97.6 10/22/24 07:50 Oxymizer 10 N/A Total Intake and Output 10/21/24 10/21/24 10/22/24 15:00 23:00 07:00 Intake Total 100 ml 300 ml 1460 ml Output Total 1300 ml Balance 100 ml -1000 ml 1460 ml medications Current Medications Medications Dose Ordered Sig/Olinda Route Start Time Stop Time Status Last Admin Dose Admin Vancomycin HCl 0 ml @ 0 mls/hr UD IV 10/13/24 23:30 Cancel Atorvastatin Calcium 40 mg HS PO 10/14/24 22:00 10/21/24 21:02 40 MG Amlodipine Besylate 5 mg DAILY PO 10/14/24 10:00 10/22/24 11:21 5 MG Diagnostic Test (Pha) 1 strip Q6HR 10/14/24 00:00 10/22/24 11:22 1 STRIP Insulin Human Regular Q6HR SC 10/14/24 00:00 10/22/24 11:30 6 UNITS Dextrose 50 ml UD PRN IV 10/13/24 23:30 Ondansetron HCl 4 mg Q4HP PRN IV 10/13/24 23:30 10/16/24 18:18 4 MG Acetaminophen 650 mg Q6HP PRN PO 10/13/24 23:30 10/18/24 03:15 650 MG Nitroglycerin 0.4 mg Q5MINP PRN SL 10/13/24 23:30 Morphine Sulfate 2 mg Q30M PRN IV 10/13/24 23:30 Hold Aspirin 81 mg DAILY PO 10/15/24 10:00 10/22/24 11:21 81 MG Heparin Sodium (Porcine) 5,000 units Q12HR SC 10/15/24 10:00 10/21/24 10:37 5,000 UNITS Furosemide 80 mg BIDD IV 10/16/24 07:30 10/22/24 05:20 80 MG Hydromorphone HCl 2 mg Q4HPRN PRN IV 10/17/24 13:15 10/22/24 11:21 2 MG Acetaminophen/ Hydrocodone Bitart 1 tab Q6HP PRN PO 10/19/24 00:30 10/19/24 02:59 1 TAB Epoetin Bran-epbx 8,000 unit TUTHSA@2100 SC 10/21/24 19:45 10/21/24 21:51 8,000 UNIT Cefazolin Sodium 50 ml @ 100 mls/hr DAILY@2100 IV 10/21/24 23:30 10/21/24 23:42 100 MLS/HR Examination Gen: Patient appears stated age, in no acute distress. Pulm: CTA Cardio: RRR, no rub Abd: Normoactive bowel sounds, soft, nontender. Extrem: + edema. laboratory and microbiology Laboratory Tests 10/22/24 05:28 Test 10/22/24 05:28 Range/Units Serum Glucose 214 H 74-106 mg/dL Microbiology Date/Time Source Procedure Growth Status 10/20/24 09:35 Blood Blood Culture - Preliminary NO GROWTH AFTER 48 HOURS OF INCUBATION. Resulted 10/15/24 13:47 Nose MRSA Screen - Final Complete 10/13/24 22:00 Voided Urine Urine Culture - Final Complete Labs and/or images reviewed: Labs reviewed by me Problem List/Assessment/Plan Problem List/Assessment/Plan Acute kidney injury likely septic ATN+(vanc +zosyn )nephrotoxicity- ongoing on hemodialysis for solute removal Baseline renal function is normal Sepsis due to bacteremia; Staph Urinary tract infection Syncope Obstructive sleep apnea severe proteinuria likely due to Dm2 EF 55% grade 1 diastolic REC Chemistry panel Continue lasix IV- urine output improving Will hold dialysis and continue to monitor for signs of renal recovery. If renal function improves will not need tunneled cath and HD K+ replacement prn Case discussed with Dr. Cabello Plan discussed with: Patient, Other (Dr. Cabello) Dietary Evaluation Review Comments: 1. Consider adding nephrovite 2. Consider adding renal to diet restrictions 3. Consider adding Nepro shake if pt with low PO intake Expected Outcomes/Goals: 1. Pt will consume >75% of estimated needs within 3-5 days GINNY BERNSTEINP Oct 22, 2024 16:05
[2024-10-22] MEDS: POTASSIUM CHL 20 Meq TABLET PO ONE (17:31)
[2024-10-22] MEDS: LIDOCAINE 1% (LOCAL ANESTH.) PF 5ml SDV ID ONE (18:10)
[2024-10-22] MEDS: SODIUM CHLOR 0.9% PF (SALINE LOCK) 10ML VIAL/SYR IV SCH (21:25)
[2024-10-22] MEDS ORDERED: VANCOMYCIN PER PHARMACY 0 MG IV SCH (21:30)
--- NOTE | 2024-10-22 22:12 | DVHPN2 ---
Consult Progress Note Date Seen: Oct 22, 2024 Subjective Patient reports: No new complaints (COmpleted 3 liters of dialysis without complications ), Other Objective vital signs Vital Sign Date Time Temp Pulse Resp B/P (MAP) Pulse Ox O2 Delivery O2 Flow Rate FiO2 10/22/24 21:26 81 20 175/78 10/22/24 21:00 98.8 98.8 10/22/24 17:00 97 10/22/24 07:50 Oxymizer 10 N/A Total Intake and Output 10/21/24 10/21/24 10/22/24 15:00 23:00 07:00 Intake Total 100 ml 300 ml 1460 ml Output Total 1300 ml Balance 100 ml -1000 ml 1460 ml medications Current Medications Medications Dose Ordered Sig/Olinda Route Start Time Stop Time Status Last Admin Dose Admin Vancomycin HCl 0 ml @ 0 mls/hr UD IV 10/13/24 23:30 Cancel Atorvastatin Calcium 40 mg HS PO 10/14/24 22:00 10/22/24 21:26 40 MG Amlodipine Besylate 5 mg DAILY PO 10/14/24 10:00 10/22/24 11:21 5 MG Diagnostic Test (Pha) 1 strip Q6HR 10/14/24 00:00 10/22/24 17:20 1 STRIP Insulin Human Regular Q6HR SC 10/14/24 00:00 10/22/24 17:30 6 UNITS Dextrose 50 ml UD PRN IV 10/13/24 23:30 Ondansetron HCl 4 mg Q4HP PRN IV 10/13/24 23:30 10/16/24 18:18 4 MG Acetaminophen 650 mg Q6HP PRN PO 10/13/24 23:30 10/18/24 03:15 650 MG Nitroglycerin 0.4 mg Q5MINP PRN SL 10/13/24 23:30 Morphine Sulfate 2 mg Q30M PRN IV 10/13/24 23:30 Hold Aspirin 81 mg DAILY PO 10/15/24 10:00 10/22/24 11:21 81 MG Heparin Sodium (Porcine) 5,000 units Q12HR SC 10/15/24 10:00 10/22/24 21:38 5,000 UNITS Furosemide 80 mg BIDD IV 10/16/24 07:30 10/22/24 17:19 80 MG Hydromorphone HCl 2 mg Q4HPRN PRN IV 10/17/24 13:15 10/22/24 21:26 2 MG Acetaminophen/ Hydrocodone Bitart 1 tab Q6HP PRN PO 10/19/24 00:30 10/19/24 02:59 1 TAB Epoetin Bran-epbx 8,000 unit TUTHSA@2100 SC 10/21/24 19:45 10/21/24 21:51 8,000 UNIT Sodium Chloride 10 ml QSHIFT@,22 IV 10/22/24 22:00 10/22/24 21:25 10 ML Vancomycin HCl 0 ml @ 0 mls/hr UD IV 10/22/24 21:30 UNV Physical Exam: - General: Morbidly obese. - Neck: Supple. No masses. - HEENT: PERRL. Normal lids and conjunctiva. Moist mucous membranes. Oropharynx without lesions, exudates, or excessive erythema. Normal appearance of the external aspects of the nose and ears. Right maxillary sinus tenderness. - Heart: Regular rhythm, normal rate. No murmur. No lower extremity edema. - Lungs: Crackles present bilaterally. - Abdomen: Mild distention. Soft. Non-tender. Non-distended. No masses or abdominal hernia. - MSK: Reports bilateral knee pain and back pain. No digital cyanosis. Normal strength and tone in all four limbs. volume overloaded. Has a dark eshar on his left plantar foot that doesnt seem to be draining, on both feet have diabetic ulcers thaat have necrotic edges and centers - Skin: Warm and dry. Right lower extremity cellulitis extending from ankle to great toe with drainage from a 1.1 cm ulcer. Left foot wounds on great toe and second toe, appearing chronic with ulcers. - Neuro: Alert. No facial droop or slurred speech. Extra-ocular movements intact. Sensation intact to soft touch in all four limbs. - Psych: Appropriate mood. Full affect. Oriented to person, place, time, and situation. laboratory and microbiology Laboratory Tests 10/22/24 05:28 Test 10/22/24 05:28 Range/Units Serum Glucose 214 H 74-106 mg/dL Problem List/Assessment/Plan Problems(with codes): (1) Status post amputation of left foot (2) Occluded PICC line (3) Cellulitis of right lower extremity (4) MSSA (methicillin susceptible Staphylococcus aureus) septicemia (5) Leukocytosis, unspecified (6) Metabolic encephalopathy (7) Diabetic foot ulcer (8) Cellulitis (9) Sepsis (10) Leg wound, left Problem List/Assessment/Plan ID Problem List: - MSSA bacteremia - Right foot cellulitis - Bilateral non-healing diabetic foot ulcers - Uncontrolled diabetes mellitus - Acute on chronic kidney disease - Morbid obesity - Dyslipidemia - Hypertension - History of stroke - Hypoxia - Severe sepsis - Lactic acidosis - Altered mental status - Hepatic steatosis - Possible need for further debridement Assessment This is a 69-year-old male with a past medical history of uncontrolled diabetes mellitus, hypertension, chronic kidney disease (baseline creatinine ~2), dyslipidemia, stroke, thyroid disease, morbid obesity, and multiple chronic non- healing diabetic foot ulcers on both feet. He has undergone prior amputations of the left and right great toes. The patient presents with an unwitnessed syncopal episode in the bathroom lasting approximately 4 hours. He denies any pre- syncopal symptoms, shortness of breath, fevers, or chills prior to the episode. On admission, the patient was febrile to 102.8F and hypoxic, requiring supplemental oxygen. Examination revealed right lower extremity cellulitis extending from the ankle to the great toe with drainage from a 1.1 cm ulcer. Laboratory findings include significant leukocytosis (WBC 36), anemia (Hb 12.2), worsening renal function (creatinine increased from baseline 2.61 to 2.7, BUN elevated to 89-92), hyperglycemia (glucose 279), and elevated lactic acid (4.5). Blood cultures grew MSSA on the 14th, and wound cultures from the right great toe grew MSSA on the 13th. Imaging studies showed right maxillary sinus opacification concerning for acute sinusitis. Left foot CT demonstrated mild soft tissue swelling without abscess or osteomyelitis. Right foot MRI indicated soft tissue inflammatory changes consistent with possible cellulitis but no abscess or osteomyelitis. The patient developed progressive hypoxia requiring up to 10 liters of supplemental oxygen. A V/Q scan ruled out pulmonary embolism. He underwent dialysis for worsening renal failure and volume overload, with placement of a dialysis catheter. 10/20:Blood cultures negative for 24 hours , not having an intolerance to nepsillin 10/21: chest x-ray shows pulmonary vascular congestion that is unchanged , on 10 liters nasal canula, blood cultures have no growth to date after 48 hours 10/22: White count is going up despite being on appropriate antibiotic therapy , possibly rellated to larger bacteria than anticipated or patients obesity with a BMI of 41. Plan: - stop ancef and start vancomycin Iv for 4 weeks to be given with dialysis at dialysis center , will determine dosage based off of patients clearance of vancomycin after dialysis - If white count continues to go up or patient demonstrates other signs of sepsis recommend repeating blood cultures , hold off for now - have dialysis catheter placed by radiology - Renal Function: - Monitor renal function closely. - Avoid nephrotoxic medications. - prior to placement of permanent dialysis catheter will need to ensure clearance of bacteremia - Infectious Disease and Debridement: - defer to podiatry for potential further debridement of the right foot infection. - If bacteremia persists, consider transesophageal echocardiogram (VANDANA) to rule out endocarditis. - will fu on blood cultures - Diabetes Management: - Optimize glycemic control with insulin therapy. keep BG<180 - Monitor blood glucose levels closely. - Respiratory Support: - Continue supplemental oxygen therapy. - Monitor oxygen saturation and adjust oxygen delivery as needed. - Sepsis Management: - Monitor lactic acid levels. - Provide appropriate supportive care for severe sepsis. Wound Care: - Continue wound care for bilateral foot ulcers. - Coordinate with wound care specialists and home health services. Other Considerations: - Address morbid obesity with nutritional support and weight management strategies. - Monitor liver function tests due to hepatic steatosis. Plan discussed with: Other Dietary Evaluation Review Comments: 1. Consider adding nephrovite 2. Consider adding renal to diet restrictions 3. Consider adding Nepro shake if pt with low PO intake Expected Outcomes/Goals: 1. Pt will consume >75% of estimated needs within 3-5 days KINGS ALVAREZ MD Oct 22, 2024 22:11
[2024-10-22] MEDS: VANCOMYCIN 1GM/200ML PREMIX IV SCH (23:22)
[2024-10-23] VITALS (8 sets, daily range): BP systolic 109–164; BP diastolic 56–87; PULSE 63–84; RESP 18–20; TEMP 97.9–99.1; O2SAT 91–99
[2024-10-23 07:37] LABS: Calcium 9.2 mg/dL (8.7-10.4); Chloride 94 mmol/L (98-107); Potassium 3.4 mmol/L (3.5-5.1); Sodium 132 mmol/L (136-145)
[2024-10-23 07:38] LABS: Anion Gap 11 (5-15); Carbon Dioxide 27 mmol/L (20-31)
[2024-10-23 07:43] LABS: BUN/Creatinine Ratio 8.7 (10.0-20.0); Glucose 186 mg/dL (74-106)
[2024-10-23 07:45] LABS: Blood Urea Nitrogen 45 mg/dL (9-23)
--- NOTE | 2024-10-23 09:30 | DVHPN2 ---
Reviewed: Care Plan, H&P, Labs, Medications, Previous Orders, Radiology Changes from previous H/P or p: No Changes Objective Vitals Vital Signs Date Time Temp Pulse Resp B/P (MAP) Pulse Ox O2 Delivery O2 Flow Rate FiO2 10/23/24 09:06 164/66 10/23/24 06:00 71 20 10/23/24 05:00 98.8 99 98.8 10/22/24 20:00 Oxymizer 10 N/A Intake/Output Intake and Output 10/23/24 07:00 Intake Total 3830 ml Output Total 3075 ml Balance 755 ml Intake Oral 3630 ml IV Total 200 ml Output Urine Total 3075 ml Medications Current Medications Medications Dose Ordered Sig/Olinda Route Start Time Stop Time Status Last Admin Dose Admin Vancomycin HCl 0 ml @ 0 mls/hr UD IV 10/13/24 23:30 Cancel Atorvastatin Calcium 40 mg HS PO 10/14/24 22:00 10/22/24 21:26 40 MG Amlodipine Besylate 5 mg DAILY PO 10/14/24 10:00 10/23/24 09:06 5 MG Diagnostic Test (Pha) 1 strip Q6HR 10/14/24 00:00 10/23/24 05:15 1 STRIP Insulin Human Regular Q6HR SC 10/14/24 00:00 10/23/24 05:23 4 UNITS Dextrose 50 ml UD PRN IV 10/13/24 23:30 Ondansetron HCl 4 mg Q4HP PRN IV 10/13/24 23:30 10/23/24 05:31 4 MG Acetaminophen 650 mg Q6HP PRN PO 10/13/24 23:30 10/18/24 03:15 650 MG Nitroglycerin 0.4 mg Q5MINP PRN SL 10/13/24 23:30 Morphine Sulfate 2 mg Q30M PRN IV 10/13/24 23:30 Hold Aspirin 81 mg DAILY PO 10/15/24 10:00 10/23/24 09:06 81 MG Heparin Sodium (Porcine) 5,000 units Q12HR SC 10/15/24 10:00 10/23/24 09:05 5,000 UNITS Furosemide 80 mg BIDD IV 10/16/24 07:30 10/23/24 05:15 80 MG Hydromorphone HCl 2 mg Q4HPRN PRN IV 10/17/24 13:15 10/23/24 05:30 2 MG Acetaminophen/ Hydrocodone Bitart 1 tab Q6HP PRN PO 10/19/24 00:30 10/22/24 23:17 1 TAB Epoetin Bran-epbx 8,000 unit TUTHSA@2100 SC 10/21/24 19:45 10/21/24 21:51 8,000 UNIT Sodium Chloride 10 ml QSHIFT@10, IV 10/22/24 22:00 10/22/24 21:25 10 ML Vancomycin HCl 0 ml @ 0 mls/hr UD IV 10/22/24 21:30 Laboratory Results Laboratory Tests 10/22/24 05:28 10/23/24 06:08 Chemistry Test 10/23/24 06:08 Calcium Level 9.2 mg/dL (8.7-10.4) Urinalysis Test 10/13/24 22:00 10/14/24 17:27 Urine Color Yellow (Yellow) Urine Clarity Turbid (Clear) H Urine pH 6.0 (5.0-9.0) Urine Specific [place] 1.020 (1.001-1.035) Urine Protein 3+ (Negative) H Urine Ketones Negative (Negative) Urine Blood 3+ /uL (Negative) H Urine Nitrite Negative (Negative) Urine Bilirubin Negative (Negative) Urine Urobilinogen Normal mg/dL (Negative) Urine Leukocyte Esterase Negative /uL (Negative) Urine RBC 2 /hpf (0 - 3) Urine WBC 4 /hpf (0 - 3) Urine Squamous Epithelial Cells Few /hpf (<5) Urine Amorphous Crystals Few /hpf (None Seen) Urine Bacteria Mod /hpf (None Seen) H Urine Glucose 4+ mg/dL (Normal) H Urine Creatinine 77.85 mg/dL (30.0-125.0) Urine Sodium 24 mmol/L (40-220) L Urine Total Protein 647.5 mg/dL (1-14) H Microbiology Microbiology Date/Time Source Procedure Growth Status 10/20/24 09:35 Blood Blood Culture - Preliminary NO GROWTH AFTER 48 HOURS OF INCUBATION. Resulted 10/15/24 13:47 Nose MRSA Screen - Final Complete 10/13/24 22:00 Voided Urine Urine Culture - Final Complete Labs and/or images reviewed: Labs reviewed by me, Image(s) reviewed by me Assessment/Plan Assessment/Plan Septic shock with elevated white count altered mental status: Bacteremia with MSSA, ID consult by Dr. Phong Richmond appreciated, vancomycin and Zosyn discontinued started on nafcillin 4 g IV q.4 hours Syncope possibly secondary to sepsis: CT head negative, chest x-ray negative, C- spine CT negative, echocardiogram 55 percent ejection fraction, carotid ultrasound negative, Neurology consult appreciated EEG normal, Cardiology consult by Dr. Diaz appreciated, no further cardiac workup Non STEMI type 2 secondary to sepsis, echo 10/14/2024 shows 55 % ejection fraction Acute kidney injury hemodynamically mediated; multifactorial, BUN creatinine 44 and 2.61 at the time of admission, now worsening 68/6.94, closely following, patient received hemodialysis on 10/16/2024, bicarb drip discontinued Lasix continued Left foot infection with MSSA: Continue nafcillin Acute metabolic encephalopathy Elevated D-dimer 5.50: DVT ruled out , PE ruled out Chronic Left foot infection Consult for Dr. Watts appreciated, MRI left foot shows no osteomyelitis of the 1st metatarsal stump or abscess History of left 1st toe amputation Left knee x-ray negative Chronic calcaneus fracture right foot Hepatomegaly Hypertension Obstructive Sleep apnea: CPAP Uncontrolled diabetes: Insulin sliding scale Hypercholesterolemia Hypothyroidism History of CVA Chronic calcaneal fracture right foot History of coronary artery disease Diabetic medial left foot ulcer: Wound consult, wound cultures growing MSSA on nafcillin Right IJ dialysis cath in place Moderate malnutrition Pain management: On Dilaudid IV Time spent 65 minutes Advanced care planning 20 minutes Condition guarded Repeat blood cultures 10/20/2024 negative Patient accidentally pulled out PICC line, consult placed for another PICC line Plan discussed with: Patient My Orders Orders - ROWENA MEREDITH MD Procedure Category Date Status Time Apply Barrier Cream [facility] 10/22/24 In Process 12:00 Nursing Protocol Picc [facility] 10/22/24 In Process 20:02 Change Dressing Prn [facility] 10/22/24 In Process 20:02 PICC BD 10/22/24 Transmitted 20:02 Sodium Chloride Lock PHA 10/22/24 In Process (Saline Lock Ns) 22:00 Do Not Use Picc For [facility] 10/22/24 In Process Blood Cult 20:02 May Draw Blood From [facility] 10/22/24 In Process Picc 20:02 Ok To Use Picc [facility] 10/22/24 In Process 20:02 Change Picc Dressing [facility] 10/22/24 In Process Q7 Days 20:02 Date of Service: Oct 23, 2024 Billing Provider: ROWENA MEREDITH MD Common Visit Codes: [id number] INP/OBS CARE(HIGH) ROWENA MEREDITH MD Oct 23, 2024 09:30
--- NOTE | 2024-10-23 14:14 | DVHPN2 ---
Progress Note Date Seen: Oct 23, 2024 Medical Necessity Reason Pt with a Central, PICC or Fol: Yes The following are medically ne: [place] Catheter Subjective Review of Systems Pt resting, in no acute distress. Patient reports: No new complaints Objective vital signs Vital Sign Date Time Temp Pulse Resp B/P (MAP) Pulse Ox O2 Delivery O2 Flow Rate FiO2 10/23/24 11:39 78 20 164/66 10/23/24 09:00 99.1 91 99.1 10/23/24 08:00 Oxymizer 10 N/A Total Intake and Output 10/22/24 10/22/24 10/23/24 15:00 23:00 07:00 Intake Total 530 ml 1500 ml 1800 ml Output Total 1700 ml 375 ml 1000 ml Balance -1170 ml 1125 ml 800 ml medications Current Medications Medications Dose Ordered Sig/Olinda Route Start Time Stop Time Status Last Admin Dose Admin Vancomycin HCl 0 ml @ 0 mls/hr UD IV 10/13/24 23:30 Cancel Atorvastatin Calcium 40 mg HS PO 10/14/24 22:00 10/22/24 21:26 40 MG Amlodipine Besylate 5 mg DAILY PO 10/14/24 10:00 10/23/24 09:06 5 MG Diagnostic Test (Pha) 1 strip Q6HR 10/14/24 00:00 10/23/24 11:31 1 STRIP Insulin Human Regular Q6HR SC 10/14/24 00:00 10/23/24 11:31 3 UNITS Dextrose 50 ml UD PRN IV 10/13/24 23:30 Ondansetron HCl 4 mg Q4HP PRN IV 10/13/24 23:30 10/23/24 11:49 4 MG Acetaminophen 650 mg Q6HP PRN PO 10/13/24 23:30 10/18/24 03:15 650 MG Nitroglycerin 0.4 mg Q5MINP PRN SL 10/13/24 23:30 Morphine Sulfate 2 mg Q30M PRN IV 10/13/24 23:30 Hold Aspirin 81 mg DAILY PO 10/15/24 10:00 10/23/24 09:06 81 MG Heparin Sodium (Porcine) 5,000 units Q12HR SC 10/15/24 10:00 10/23/24 09:05 5,000 UNITS Furosemide 80 mg BIDD IV 10/16/24 07:30 10/23/24 05:15 80 MG Hydromorphone HCl 2 mg Q4HPRN PRN IV 10/17/24 13:15 10/23/24 11:39 2 MG Acetaminophen/ Hydrocodone Bitart 1 tab Q6HP PRN PO 10/19/24 00:30 10/22/24 23:17 1 TAB Epoetin Bran-epbx 8,000 unit TUTHSA@2100 SC 10/21/24 19:45 10/21/24 21:51 8,000 UNIT Sodium Chloride 10 ml QSHIFT@10,22 IV 10/22/24 22:00 10/22/24 21:25 10 ML Vancomycin HCl 0 ml @ 0 mls/hr UD IV 10/22/24 21:30 Examination Gen: Patient appears stated age, in no acute distress. Pulm: Diminished bilaterally Cardio: RRR, no rub Abd: Normoactive bowel sounds, soft, nontender. Extrem: + 1 BLE edema. laboratory and microbiology Laboratory Tests 10/23/24 06:08 10/22/24 05:28 Test 10/23/24 06:08 Range/Units Serum Glucose 186 H 74-106 mg/dL Microbiology Date/Time Source Procedure Growth Status 10/20/24 09:35 Blood Blood Culture - Preliminary NO GROWTH AFTER 72 HOURS OF INCUBATION. Resulted 10/15/24 13:47 Nose MRSA Screen - Final Complete 10/13/24 22:00 Voided Urine Urine Culture - Final Complete Labs and/or images reviewed: Labs reviewed by me Problem List/Assessment/Plan Problem List/Assessment/Plan Acute kidney injury likely septic ATN+(vanc +zosyn )nephrotoxicity- ongoing BUN 45, creat 5.17, GFR 11 Baseline renal function is normal Sepsis due to bacteremia; Staph Urinary tract infection Syncope Obstructive sleep apnea severe proteinuria likely due to Dm2 EF 55% grade 1 diastolic REC Serial chemistry panels Continue lasix IV- urine output has improved Will hold dialysis and continue to monitor daily for signs of renal recovery. If renal function improves will not need tunneled cath and HD K+ replacement prn Case discussed with Dr. Cabello Plan discussed with: Patient, Other (Dr. Cabello) My Orders My Orders Orders - GINNY BERNSTEIN Procedure Category Date Status Time Potassium Er Tablet PHA 10/23/24 Verified (Klor-Con Tablet) 14:15 Dietary Evaluation Review Comments: 1. Consider adding nephrovite 2. Consider adding renal to diet restrictions 3. Consider adding Nepro shake if pt with low PO intake Expected Outcomes/Goals: 1. Pt will consume >75% of estimated needs within 3-5 days GINNY BERNSTEIN Oct 23, 2024 14:14
[2024-10-23] MEDS: POTASSIUM CHL 20 Meq TABLET PO ONE (14:40)
--- NOTE | 2024-10-23 22:14 | DVHPN2 ---
Consult Progress Note Date Seen: Oct 23, 2024 Subjective Patient reports: Other (blood pressures are improving , now hypertensive , still volume overloaded , on 10 liters nasal canula , swlling in legs bilaterally ) Objective vital signs Vital Sign Date Time Temp Pulse Resp B/P (MAP) Pulse Ox O2 Delivery O2 Flow Rate FiO2 10/23/24 21:56 77 20 146/87 10/23/24 21:00 98.7 97 98.7 10/23/24 08:00 Oxymizer 10 N/A Total Intake and Output 10/22/24 10/22/24 10/23/24 15:00 23:00 07:00 Intake Total 530 ml 1500 ml 1800 ml Output Total 1700 ml 375 ml 1000 ml Balance -1170 ml 1125 ml 800 ml medications Current Medications Medications Dose Ordered Sig/Olinda Route Start Time Stop Time Status Last Admin Dose Admin Vancomycin HCl 0 ml @ 0 mls/hr UD IV 10/13/24 23:30 Cancel Atorvastatin Calcium 40 mg HS PO 10/14/24 22:00 10/23/24 21:49 40 MG Amlodipine Besylate 5 mg DAILY PO 10/14/24 10:00 10/23/24 09:06 5 MG Diagnostic Test (Pha) 1 strip Q6HR 10/14/24 00:00 10/23/24 18:28 1 STRIP Insulin Human Regular Q6HR SC 10/14/24 00:00 10/23/24 18:28 3 UNITS Dextrose 50 ml UD PRN IV 10/13/24 23:30 Ondansetron HCl 4 mg Q4HP PRN IV 10/13/24 23:30 10/23/24 11:49 4 MG Acetaminophen 650 mg Q6HP PRN PO 10/13/24 23:30 10/18/24 03:15 650 MG Nitroglycerin 0.4 mg Q5MINP PRN SL 10/13/24 23:30 Morphine Sulfate 2 mg Q30M PRN IV 10/13/24 23:30 Hold Aspirin 81 mg DAILY PO 10/15/24 10:00 10/23/24 09:06 81 MG Heparin Sodium (Porcine) 5,000 units Q12HR SC 10/15/24 10:00 10/23/24 21:59 5,000 UNITS Furosemide 80 mg BIDD IV 10/16/24 07:30 10/23/24 18:28 80 MG Hydromorphone HCl 2 mg Q4HPRN PRN IV 10/17/24 13:15 10/23/24 21:56 2 MG Acetaminophen/ Hydrocodone Bitart 1 tab Q6HP PRN PO 10/19/24 00:30 10/22/24 23:17 1 TAB Epoetin Bran-epbx 8,000 unit TUTHSA@2100 SC 10/21/24 19:45 10/23/24 20:36 8,000 UNIT Sodium Chloride 10 ml QSHIFT@10,22 IV 10/22/24 22:00 10/23/24 21:48 10 ML Vancomycin HCl 0 ml @ 0 mls/hr UD IV 10/22/24 21:30 Physical Exam: - General: Morbidly obese. - Neck: Supple. No masses. - HEENT: PERRL. Normal lids and conjunctiva. Moist mucous membranes. Oropharynx without lesions, exudates, or excessive erythema. Normal appearance of the external aspects of the nose and ears. Right maxillary sinus tenderness. - Heart: Regular rhythm, normal rate. No murmur. No lower extremity edema. - Lungs: Crackles present bilaterally. - Abdomen: Mild distention. Soft. Non-tender. Non-distended. No masses or abdominal hernia. - MSK: Reports bilateral knee pain and back pain. No digital cyanosis. Normal strength and tone in all four limbs. volume overloaded. Has a dark eshar on his left plantar foot that doesnt seem to be draining, on both feet have diabetic ulcers thaat have necrotic edges and centers - Skin: Warm and dry. Right lower extremity cellulitis extending from ankle to great toe with drainage from a 1.1 cm ulcer. Left foot wounds on great toe and second toe, appearing chronic with ulcers. - Neuro: Alert. No facial droop or slurred speech. Extra-ocular movements intact. Sensation intact to soft touch in all four limbs. - Psych: Appropriate mood. Full affect. Oriented to person, place, time, and situation. laboratory and microbiology Laboratory Tests 10/23/24 06:08 10/22/24 05:28 Test 10/23/24 06:08 Range/Units Serum Glucose 186 H 74-106 mg/dL Problem List/Assessment/Plan Problems(with codes): (1) Status post amputation of left foot (2) Occluded PICC line (3) Cellulitis of right lower extremity (4) MSSA (methicillin susceptible Staphylococcus aureus) septicemia (5) Metabolic encephalopathy (6) Leukocytosis, unspecified (7) Diabetic foot ulcer (8) Cellulitis (9) Leg wound, left Problem List/Assessment/Plan ID Problem List: - MSSA bacteremia - Right foot cellulitis - Bilateral non-healing diabetic foot ulcers - Uncontrolled diabetes mellitus - Acute on chronic kidney disease - Morbid obesity - Dyslipidemia - Hypertension - History of stroke - Hypoxia - Severe sepsis - Lactic acidosis - Altered mental status - Hepatic steatosis - Possible need for further debridement Assessment This is a 69-year-old male with a past medical history of uncontrolled diabetes mellitus, hypertension, chronic kidney disease (baseline creatinine ~2), dyslipidemia, stroke, thyroid disease, morbid obesity, and multiple chronic non- healing diabetic foot ulcers on both feet. He has undergone prior amputations of the left and right great toes. The patient presents with an unwitnessed syncopal episode in the bathroom lasting approximately 4 hours. He denies any pre- syncopal symptoms, shortness of breath, fevers, or chills prior to the episode. On admission, the patient was febrile to 102.8F and hypoxic, requiring supplemental oxygen. Examination revealed right lower extremity cellulitis extending from the ankle to the great toe with drainage from a 1.1 cm ulcer. Laboratory findings include significant leukocytosis (WBC 36), anemia (Hb 12.2), worsening renal function (creatinine increased from baseline 2.61 to 2.7, BUN elevated to 89-92), hyperglycemia (glucose 279), and elevated lactic acid (4.5). Blood cultures grew MSSA on the 14th, and wound cultures from the right great toe grew MSSA on the 13th. Imaging studies showed right maxillary sinus opacification concerning for acute sinusitis. Left foot CT demonstrated mild soft tissue swelling without abscess or osteomyelitis. Right foot MRI indicated soft tissue inflammatory changes consistent with possible cellulitis but no abscess or osteomyelitis. The patient developed progressive hypoxia requiring up to 10 liters of supplemental oxygen. A V/Q scan ruled out pulmonary embolism. He underwent dialysis for worsening renal failure and volume overload, with placement of a dialysis catheter. 10/20:Blood cultures negative for 24 hours , not having an intolerance to nepsillin 10/21: chest x-ray shows pulmonary vascular congestion that is unchanged , on 10 liters nasal canula, blood cultures have no growth to date after 48 hours 10/22: White count is going up despite being on appropriate antibiotic therapy , possibly rellated to larger bacteria than anticipated or patients obesity with a BMI of 41. Plan: - stop ancef and start vancomycin Iv for 4 weeks to be given with dialysis at dialysis center , will determine dosage based off of patients clearance of vancomycin after dialysis - If white count continues to go up or patient demonstrates other signs of sepsis recommend repeating blood cultures , hold off for now - have dialysis catheter placed by radiology - Renal Function: - Monitor renal function closely. - Avoid nephrotoxic medications. - prior to placement of permanent dialysis catheter will need to ensure clearance of bacteremia - Infectious Disease and Debridement: - defer to podiatry for potential further debridement of the right foot infection. - If bacteremia persists, consider transesophageal echocardiogram (VANDANA) to rule out endocarditis. - will fu on blood cultures - Diabetes Management: - Optimize glycemic control with insulin therapy. keep BG<180 - Monitor blood glucose levels closely. - Respiratory Support: - Continue supplemental oxygen therapy. - Monitor oxygen saturation and adjust oxygen delivery as needed. - Sepsis Management: - Monitor lactic acid levels. - Provide appropriate supportive care for severe sepsis. Wound Care: - Continue wound care for bilateral foot ulcers. - Coordinate with wound care specialists and home health services. Other Considerations: - Address morbid obesity with nutritional support and weight management strategies. - Monitor liver function tests due to hepatic steatosis. Plan discussed with: Other Dietary Evaluation Review Comments: 1. Consider adding nephrovite 2. Consider adding renal to diet restrictions 3. Consider adding Nepro shake if pt with low PO intake Expected Outcomes/Goals: 1. Pt will consume >75% of estimated needs within 3-5 days KINGS ALVAREZ MD Oct 23, 2024 22:14
[2024-10-24] VITALS (7 sets, daily range): BP systolic 113–143; BP diastolic 49–76; PULSE 72–87; RESP 17–20; TEMP 98.2–100.5; O2SAT 92–97
[2024-10-24 06:17] LABS: Hemoglobin 9.4 g/dL (13.5-17.5); Platelet Count (auto) 327 10^3/uL (140-450); White Blood Cell 18.8 10^3/uL (4.4-10.8)
[2024-10-24 06:19] LABS: Hematocrit 28.7 % (41.0-53.0); Mean Corpuscular Hemoglobin 25.5 pg (28.0-32.0); Mean Corpuscular Hgb Conc. 32.8 g/dL (32.0-36.0); Mean Corpuscular Volume 77.9 fL (80.0-100.0); Red Blood Cells 3.69 10^6/uL (4.5-5.90)
[2024-10-24 06:22] LABS: Anion Gap 12 (5-15); Calcium 9.4 mg/dL (8.7-10.4); Carbon Dioxide 25 mmol/L (20-31); Chloride 93 mmol/L (98-107); Sodium 130 mmol/L (136-145)
[2024-10-24 06:28] LABS: BUN/Creatinine Ratio 8.8 (10.0-20.0); Blood Urea Nitrogen 53 mg/dL (9-23); Glucose 172 mg/dL (74-106)
[2024-10-24 06:31] LABS: INR 1.03 (0.9-1.15); Partial Thromboplastin Time 33.1 SEC (24.5-34.5); Prothrombin Time 10.9 sec (9.3-11.8)
[2024-10-24 06:57] LABS: Basophils % (manual) 0 (0.0-2.0); Blast Cells 0; Metamyelocytes % 0; Myelocytes % 0; Promyelocytes % 0; Reactive Lymphocytes 0
[2024-10-24 07:55] LABS: Band Neutrophils % (manual) 3; Eosinophils % (manual) 2 (0-7); Lymphocytes % (manual) 12 (10.0-50.0); Monocytes % (manual) 2 (0-12); Platelet Estimate Adequate
--- NOTE | 2024-10-24 08:41 | DVHPN2 ---
Reviewed: Care Plan, H&P, Labs, Medications, Previous Orders, Radiology Changes from previous H/P or p: No Changes Objective Vitals Vital Signs Date Time Temp Pulse Resp B/P (MAP) Pulse Ox O2 Delivery O2 Flow Rate FiO2 10/24/24 06:29 100 20 112/74 10/24/24 05:00 100.5 95 100.5 10/23/24 20:00 Oxymizer 10 N/A Intake/Output Intake and Output 10/24/24 07:00 Intake Total 1390 ml Output Total 2800 ml Balance -1410 ml Intake Oral 1390 ml Output Urine Total 2800 ml Medications Current Medications Medications Dose Ordered Sig/Olinda Route Start Time Stop Time Status Last Admin Dose Admin Vancomycin HCl 0 ml @ 0 mls/hr UD IV 10/13/24 23:30 Cancel Atorvastatin Calcium 40 mg HS PO 10/14/24 22:00 10/23/24 21:49 40 MG Amlodipine Besylate 5 mg DAILY PO 10/14/24 10:00 10/23/24 09:06 5 MG Diagnostic Test (Pha) 1 strip Q6HR 10/14/24 00:00 10/24/24 05:50 1 STRIP Insulin Human Regular Q6HR SC 10/14/24 00:00 10/24/24 05:56 3 UNITS Dextrose 50 ml UD PRN IV 10/13/24 23:30 Ondansetron HCl 4 mg Q4HP PRN IV 10/13/24 23:30 10/23/24 11:49 4 MG Acetaminophen 650 mg Q6HP PRN PO 10/13/24 23:30 10/24/24 04:31 650 MG Nitroglycerin 0.4 mg Q5MINP PRN SL 10/13/24 23:30 Morphine Sulfate 2 mg Q30M PRN IV 10/13/24 23:30 Hold Aspirin 81 mg DAILY PO 10/15/24 10:00 10/23/24 09:06 81 MG Heparin Sodium (Porcine) 5,000 units Q12HR SC 10/15/24 10:00 10/23/24 21:59 5,000 UNITS Furosemide 80 mg BIDD IV 10/16/24 07:30 10/24/24 05:50 80 MG Hydromorphone HCl 2 mg Q4HPRN PRN IV 10/17/24 13:15 10/24/24 05:59 2 MG Acetaminophen/ Hydrocodone Bitart 1 tab Q6HP PRN PO 10/19/24 00:30 10/22/24 23:17 1 TAB Epoetin Bran-epbx 8,000 unit TUTHSA@2100 SC 10/21/24 19:45 10/23/24 20:36 8,000 UNIT Sodium Chloride 10 ml QSHIFT@10,22 IV 10/22/24 22:00 10/23/24 21:48 10 ML Vancomycin HCl 0 ml @ 0 mls/hr UD IV 10/22/24 21:30 Laboratory Results Laboratory Tests 10/24/24 05:40 Chemistry Test 10/24/24 05:40 Calcium Level 9.4 mg/dL (8.7-10.4) Coagulation Test 10/24/24 05:40 Prothrombin Time 10.9 sec (9.3-11.8) Prothrombin Time INR 1.03 (0.9-1.15) Activated Partial Thromboplast Time 33.1 SEC (24.5-34.5) Urinalysis Test 10/13/24 22:00 10/14/24 17:27 Urine Color Yellow (Yellow) Urine Clarity Turbid (Clear) H Urine pH 6.0 (5.0-9.0) Urine Specific [place] 1.020 (1.001-1.035) Urine Protein 3+ (Negative) H Urine Ketones Negative (Negative) Urine Blood 3+ /uL (Negative) H Urine Nitrite Negative (Negative) Urine Bilirubin Negative (Negative) Urine Urobilinogen Normal mg/dL (Negative) Urine Leukocyte Esterase Negative /uL (Negative) Urine RBC 2 /hpf (0 - 3) Urine WBC 4 /hpf (0 - 3) Urine Squamous Epithelial Cells Few /hpf (<5) Urine Amorphous Crystals Few /hpf (None Seen) Urine Bacteria Mod /hpf (None Seen) H Urine Glucose 4+ mg/dL (Normal) H Urine Creatinine 77.85 mg/dL (30.0-125.0) Urine Sodium 24 mmol/L (40-220) L Urine Total Protein 647.5 mg/dL (1-14) H Microbiology Microbiology Date/Time Source Procedure Growth Status 10/20/24 09:35 Blood Blood Culture - Preliminary NO GROWTH AFTER 72 HOURS OF INCUBATION. Resulted 10/15/24 13:47 Nose MRSA Screen - Final Complete 10/13/24 22:00 Voided Urine Urine Culture - Final Complete Labs and/or images reviewed: Labs reviewed by me, Image(s) reviewed by me Assessment/Plan Assessment/Plan Septic shock with elevated white count altered mental status: Bacteremia with MSSA, ID consult by Dr. Phong Richmond appreciated, vancomycin and Zosyn discontinued started on nafcillin 4 g IV q.4 hours Syncope possibly secondary to sepsis: CT head negative, chest x-ray negative, C- spine CT negative, echocardiogram 55 percent ejection fraction, carotid ultrasound negative, Neurology consult appreciated EEG normal, Cardiology consult by Dr. Diaz appreciated, no further cardiac workup Non STEMI type 2 secondary to sepsis, echo 10/14/2024 shows 55 % ejection fraction Acute kidney injury hemodynamically mediated; multifactorial, BUN creatinine 44 and 2.61 at the time of admission, now worsening 68/6.94, closely following, patient received hemodialysis on 10/16/2024, bicarb drip discontinued Lasix continued Left foot infection with MSSA: Continue nafcillin Acute metabolic encephalopathy Elevated D-dimer 5.50: DVT ruled out , PE ruled out Chronic Left foot infection Consult for Dr. Watts appreciated, MRI left foot shows no osteomyelitis of the 1st metatarsal stump or abscess History of left 1st toe amputation Left knee x-ray negative Chronic calcaneus fracture right foot Hepatomegaly Hypertension Obstructive Sleep apnea: CPAP Uncontrolled diabetes: Insulin sliding scale Hypercholesterolemia Hypothyroidism History of CVA Chronic calcaneal fracture right foot History of coronary artery disease Diabetic medial left foot ulcer: Wound consult, wound cultures growing MSSA on nafcillin Right IJ dialysis cath in place Moderate malnutrition Pain management: On Dilaudid IV Time spent 65 minutes Advanced care planning 20 minutes Condition guarded Repeat blood cultures 10/20/2024 negative Patient accidentally pulled out PICC line, consult placed for another PICC line Plan discussed with: Patient Date of Service: Oct 24, 2024 Billing Provider: ROWENA MEREDITH MD Common Visit Codes: 87878-[id number] CARE 30-74 MIN ROWENA MEREDITH MD Oct 24, 2024 08:41
[2024-10-24] MEDS: LIDOCAINE 1% (LOCAL ANESTH.) PF 5ml SDV ID ONE (14:01)
--- NOTE | 2024-10-24 14:58 | DVHPN2 ---
Progress Note Date Seen: Oct 24, 2024 Medical Necessity Reason Pt with a Central, PICC or Fol: Yes The following are medically ne: [place] Catheter Subjective Review of Systems In no acute distress. Patient reports: No new complaints Objective vital signs Vital Sign Date Time Temp Pulse Resp B/P (MAP) Pulse Ox O2 Delivery O2 Flow Rate FiO2 10/24/24 13:56 78 18 132/58 10/24/24 11:53 99.0 97 99.0 10/24/24 08:00 Oxymizer 10 N/A Total Intake and Output 10/23/24 10/23/24 10/24/24 14:59 22:59 06:59 Intake Total 240 ml 850 ml 300 ml Output Total 1400 ml 1400 ml Balance 240 ml -550 ml -1100 ml medications Current Medications Medications Dose Ordered Sig/Olinda Route Start Time Stop Time Status Last Admin Dose Admin Vancomycin HCl 0 ml @ 0 mls/hr UD IV 10/13/24 23:30 Cancel Atorvastatin Calcium 40 mg HS PO 10/14/24 22:00 10/23/24 21:49 40 MG Amlodipine Besylate 5 mg DAILY PO 10/14/24 10:00 10/24/24 09:41 5 MG Diagnostic Test (Pha) 1 strip Q6HR 10/14/24 00:00 10/24/24 12:18 1 STRIP Insulin Human Regular Q6HR SC 10/14/24 00:00 10/24/24 12:56 6 UNITS Dextrose 50 ml UD PRN IV 10/13/24 23:30 Ondansetron HCl 4 mg Q4HP PRN IV 10/13/24 23:30 10/23/24 11:49 4 MG Acetaminophen 650 mg Q6HP PRN PO 10/13/24 23:30 10/24/24 04:31 650 MG Nitroglycerin 0.4 mg Q5MINP PRN SL 10/13/24 23:30 Morphine Sulfate 2 mg Q30M PRN IV 10/13/24 23:30 Hold Aspirin 81 mg DAILY PO 10/15/24 10:00 10/24/24 09:41 81 MG Heparin Sodium (Porcine) 5,000 units Q12HR SC 10/15/24 10:00 10/24/24 09:48 5,000 UNITS Furosemide 80 mg BIDD IV 10/16/24 07:30 10/24/24 05:50 80 MG Hydromorphone HCl 2 mg Q4HPRN PRN IV 10/17/24 13:15 10/24/24 13:56 2 MG Acetaminophen/ Hydrocodone Bitart 1 tab Q6HP PRN PO 10/19/24 00:30 10/22/24 23:17 1 TAB Epoetin Bran-epbx 8,000 unit TUTHSA@2100 SC 10/21/24 19:45 10/23/24 20:36 8,000 UNIT Sodium Chloride 10 ml QSHIFT@10,22 IV 10/22/24 22:00 10/24/24 09:50 10 ML Vancomycin HCl 0 ml @ 0 mls/hr UD IV 10/22/24 21:30 Examination Gen: Patient appears stated age, in no acute distress. Pulm: Diminished bilaterally Cardio: RRR, no rub Abd: Normoactive bowel sounds, soft, nontender. Extrem: + 1 BLE edema. laboratory and microbiology Laboratory Tests 10/24/24 05:40 Test 10/24/24 05:40 Range/Units Serum Glucose 172 H 74-106 mg/dL Microbiology Date/Time Source Procedure Growth Status 10/20/24 09:35 Blood Blood Culture - Preliminary NO GROWTH AFTER 72 HOURS OF INCUBATION. Resulted 10/15/24 13:47 Nose MRSA Screen - Final Complete 10/13/24 22:00 Voided Urine Urine Culture - Final Complete Labs and/or images reviewed: Labs reviewed by me Problem List/Assessment/Plan Problem List/Assessment/Plan Acute kidney injury likely septic ATN+(vanc +zosyn )nephrotoxicity- creatinine continues to increase 6.01, GFR 10 Baseline renal function is normal Sepsis due to bacteremia; Staph Urinary tract infection Syncope Obstructive sleep apnea severe proteinuria likely due to Dm2 EF 55% grade 1 diastolic REC Hemodialysis tomorrow- creat continues to uptrend Continue serial chemistry panels Continue lasix IV- urine output has improved Monitor daily for signs of renal recovery, If renal function improves will not need tunneled cath and HD K+ replacement prn Case discussed with Dr. Cabello Plan discussed with: Patient, Other (Dr Cabello) Dietary Evaluation Review Comments: 1. Consider adding nephrovite 2. Consider adding renal to diet restrictions 3. Consider adding Nepro shake if pt with low PO intake Expected Outcomes/Goals: 1. Pt will consume >75% of estimated needs within 3-5 days GINNY BERNSTEIN Oct 24, 2024 14:58
[2024-10-24] MEDS ORDERED: levoFLOXacin 500MG 100 ML IV SCH (20:45)
[2024-10-24] MEDS ORDERED: levoFLOXacin 750MG 150 ML IV ONE (21:00)
--- NOTE | 2024-10-24 22:01 | DVHPN2 ---
Consult Progress Note Date Seen: Oct 24, 2024 Subjective Patient reports: Feels worse (Has a fever today and a new piccline in place , BP is good ) Objective vital signs Vital Sign Date Time Temp Pulse Resp B/P (MAP) Pulse Ox O2 Delivery O2 Flow Rate FiO2 10/24/24 18:54 79 16 135/63 10/24/24 16:00 98.4 92 98.4 10/24/24 08:00 Oxymizer 10 N/A Total Intake and Output 10/23/24 10/23/24 10/24/24 15:00 23:00 07:00 Intake Total 240 ml 850 ml 300 ml Output Total 1400 ml 1400 ml Balance 240 ml -550 ml -1100 ml medications Current Medications Medications Dose Ordered Sig/Olinda Route Start Time Stop Time Status Last Admin Dose Admin Vancomycin HCl 0 ml @ 0 mls/hr UD IV 10/13/24 23:30 Cancel Atorvastatin Calcium 40 mg HS PO 10/14/24 22:00 10/23/24 21:49 40 MG Amlodipine Besylate 5 mg DAILY PO 10/14/24 10:00 10/24/24 09:41 5 MG Diagnostic Test (Pha) 1 strip Q6HR 10/14/24 00:00 10/24/24 17:33 1 STRIP Insulin Human Regular Q6HR SC 10/14/24 00:00 10/24/24 18:24 6 UNITS Dextrose 50 ml UD PRN IV 10/13/24 23:30 Ondansetron HCl 4 mg Q4HP PRN IV 10/13/24 23:30 10/23/24 11:49 4 MG Acetaminophen 650 mg Q6HP PRN PO 10/13/24 23:30 10/24/24 04:31 650 MG Nitroglycerin 0.4 mg Q5MINP PRN SL 10/13/24 23:30 Morphine Sulfate 2 mg Q30M PRN IV 10/13/24 23:30 Hold Aspirin 81 mg DAILY PO 10/15/24 10:00 10/24/24 09:41 81 MG Heparin Sodium (Porcine) 5,000 units Q12HR SC 10/15/24 10:00 10/24/24 09:48 5,000 UNITS Furosemide 80 mg BIDD IV 10/16/24 07:30 10/24/24 18:23 80 MG Hydromorphone HCl 2 mg Q4HPRN PRN IV 10/17/24 13:15 10/24/24 18:24 2 MG Acetaminophen/ Hydrocodone Bitart 1 tab Q6HP PRN PO 10/19/24 00:30 10/24/24 16:15 1 TAB Epoetin Bran-epbx 8,000 unit TUTHSA@2100 UT 10/21/24 19:45 10/23/24 20:36 8,000 UNIT Sodium Chloride 10 ml QSHIFT@10,22 IV 10/22/24 22:00 10/24/24 09:50 10 ML Vancomycin HCl 0 ml @ 0 mls/hr UD IV 10/22/24 21:30 Sodium Chloride 10 ml QSHIFT@10,22 IV 10/24/24 22:00 Levofloxacin/ Dextrose 100 ml @ 100 mls/hr Q48H IV 10/24/24 20:45 UNV Ceftriaxone Sodium/Dextrose 50 ml @ 50 mls/hr DAILY IV 10/25/24 10:00 Physical Exam: - General: Morbidly obese. - Neck: Supple. No masses. - HEENT: PERRL. Normal lids and conjunctiva. Moist mucous membranes. Oropharynx without lesions, exudates, or excessive erythema. Normal appearance of the external aspects of the nose and ears. Right maxillary sinus tenderness. - Heart: Regular rhythm, normal rate. No murmur. No lower extremity edema. - Lungs: Crackles present bilaterally. still on 10 liters nasal canula - Abdomen: Mild distention. Soft. Non-tender. Non-distended. No masses or abdominal hernia. fluid in abdomen and lower extremities bilaterally - MSK: Reports bilateral knee pain and back pain. No digital cyanosis. Normal strength and tone in all four limbs. volume overloaded. foot ulcer appears clean ,dry and intact with clean granulated tissue at site of amputation - Skin: Warm and dry. Right lower extremity cellulitis extending from ankle to great toe with drainage from a 1.1 cm ulcer. Left foot wounds on great toe and second toe, appearing chronic with ulcers. - Neuro: Alert. No facial droop or slurred speech. Extra-ocular movements intact. Sensation intact to soft touch in all four limbs. - Psych: Appropriate mood. Full affect. Oriented to person, place, time, and situation. laboratory and microbiology Laboratory Tests 10/24/24 05:40 Test 10/24/24 05:40 Range/Units Serum Glucose 172 H 74-106 mg/dL Problem List/Assessment/Plan Problems(with codes): (1) Cellulitis (2) Diabetic foot ulcer (3) Metabolic encephalopathy (4) MSSA (methicillin susceptible Staphylococcus aureus) septicemia (5) Leukocytosis, unspecified (6) Cellulitis of right lower extremity (7) Occluded PICC line (8) Status post amputation of left foot Problem List/Assessment/Plan ID Problem List: - MSSA bacteremia - Right foot cellulitis - Bilateral non-healing diabetic foot ulcers - Uncontrolled diabetes mellitus - Acute on chronic kidney disease - Morbid obesity - Dyslipidemia - Hypertension - History of stroke - Hypoxia - Severe sepsis - Lactic acidosis - Altered mental status - Hepatic steatosis - Possible need for further debridement Assessment This is a 69-year-old male with a past medical history of uncontrolled diabetes mellitus, hypertension, chronic kidney disease (baseline creatinine ~2), dyslipidemia, stroke, thyroid disease, morbid obesity, and multiple chronic non- healing diabetic foot ulcers on both feet. He has undergone prior amputations of the left and right great toes. The patient presents with an unwitnessed syncopal episode in the bathroom lasting approximately 4 hours. He denies any pre- syncopal symptoms, shortness of breath, fevers, or chills prior to the episode. On admission, the patient was febrile to 102.8F and hypoxic, requiring supplemental oxygen. Examination revealed right lower extremity cellulitis extending from the ankle to the great toe with drainage from a 1.1 cm ulcer. Laboratory findings include significant leukocytosis (WBC 36), anemia (Hb 12.2), worsening renal function (creatinine increased from baseline 2.61 to 2.7, BUN elevated to 89-92), hyperglycemia (glucose 279), and elevated lactic acid (4.5). Blood cultures grew MSSA on the 14th, and wound cultures from the right great toe grew MSSA on the th. Imaging studies showed right maxillary sinus opacification concerning for acute sinusitis. Left foot CT demonstrated mild soft tissue swelling without abscess or osteomyelitis. Right foot MRI indicated soft tissue inflammatory changes consistent with possible cellulitis but no abscess or osteomyelitis. The patient developed progressive hypoxia requiring up to 10 liters of supplemental oxygen. A V/Q scan ruled out pulmonary embolism. He underwent dialysis for worsening renal failure and volume overload, with placement of a dialysis catheter. 10/20:Blood cultures negative for 24 hours , not having an intolerance to nepsillin 10/21: chest x-ray shows pulmonary vascular congestion that is unchanged , on 10 liters nasal canula, blood cultures have no growth to date after 48 hours 10/22: White count is going up despite being on appropriate antibiotic therapy , possibly rellated to larger bacteria than anticipated or patients obesity with a BMI of 41. 10/24: white count is up to 18.8 despite switching antibiotics , at this point suspect patient has suppresed bacteria that has not been caught on cultures Plan: - dose of vancomycin has been therapuetic, recommend waiting 24 hours and if fever persist recommend starting ceftriaxone empiricall. Due to patients QTC is 571 , cannot do levaquin , can do ceftriaxone 2 grams every 24 hours - Continue vancomycin Iv for 4 weeks to be given with dialysis at dialysis center , will determine dosage based off of patients clearance of vancomycin after dialysis - If white count continues to go up or patient demonstrates other signs of sepsis recommend repeating blood cultures , hold off for now - have dialysis catheter placed by radiology - Renal Function: - Monitor renal function closely. - Avoid nephrotoxic medications. - prior to placement of permanent dialysis catheter will need to ensure clearance of bacteremia - Infectious Disease and Debridement: - defer to podiatry for potential further debridement of the right foot infection. - If bacteremia persists, consider transesophageal echocardiogram (VANDANA) to rule out endocarditis. - will fu on blood cultures - Diabetes Management: - Optimize glycemic control with insulin therapy. keep BG<180 - Monitor blood glucose levels closely. - Respiratory Support: - Continue supplemental oxygen therapy. - Monitor oxygen saturation and adjust oxygen delivery as needed. - Sepsis Management: - Monitor lactic acid levels. - Provide appropriate supportive care for severe sepsis. Wound Care: - Continue wound care for bilateral foot ulcers. - Coordinate with wound care specialists and home health services. Other Considerations: - Address morbid obesity with nutritional support and weight management strategies. - Monitor liver function tests due to hepatic steatosis. Plan discussed with: Other Dietary Evaluation Review Comments: 1. Consider adding nephrovite 2. Consider adding renal to diet restrictions 3. Consider adding Nepro shake if pt with low PO intake Expected Outcomes/Goals: 1. Pt will consume >75% of estimated needs within 3-5 days KINGS ALVAREZ MD Oct 24, 2024 22:01
[2024-10-24] MEDS: SODIUM CHLOR 0.9% PF (SALINE LOCK) 10ML VIAL/SYR IV SCH (22:03)
[2024-10-25] VITALS (10 sets, daily range): BP systolic 18–183; BP diastolic 70–88; PULSE 69–95; RESP 12–20; TEMP 98.1–98.7; O2SAT 92–99
[2024-10-25 06:23] LABS: Eosinophils # (auto) 0.4 10 ^3/uL (0-0.8); Hematocrit 28.3 % (41.0-53.0)
[2024-10-25 06:26] LABS: Basophils # (auto) 0.1 10 ^3/uL (0-0.2); Basophils % (auto) 0.4 % (0.0-2.0); Eosinophils % (auto) 2.6 % (0.0-7.0); Hemoglobin 9.4 g/dL (13.5-17.5); Lymphocytes # (auto) 1.8 10 ^3/uL (0.4-5.4); Lymphocytes % (auto) 12.1 % (10.0-50.0); Mean Corpuscular Hgb Conc. 33.2 g/dL (32.0-36.0); Mean Corpuscular Volume 78.2 fL (80.0-100.0); Monocytes # (auto) 1.2 10 ^3/uL (0-1.3); Neutrophils # (auto) 11.3 10 ^3/uL (1.6-8.6); Neutrophils % (auto) 76.9 % (37.0-80.0); Platelet Count (auto) 322 10^3/uL (140-450); Red Blood Cells 3.62 10^6/uL (4.5-5.90); Red Cell Distribution Width 17.6 % (11.8-14.3); White Blood Cell 14.7 10^3/uL (4.4-10.8)
[2024-10-25 06:59] LABS: Anion Gap 11 (5-15); Carbon Dioxide 26 mmol/L (20-31); Chloride 93 mmol/L (98-107); Sodium 130 mmol/L (136-145)
[2024-10-25 07:00] LABS: Calcium 9.5 mg/dL (8.7-10.4)
[2024-10-25] MEDS: SODIUM CHL 0.9% 1000 ML BAG XX ONE (07:00)
[2024-10-25 07:05] LABS: BUN/Creatinine Ratio 8.9 (10.0-20.0); Blood Urea Nitrogen 60 mg/dL (9-23); Glucose 240 mg/dL (74-106)
[2024-10-25] MEDS: cefTRIAXone 2GM/50ML D5W 50 ML IV SCH (09:06)
--- NOTE | 2024-10-25 09:23 | DVHPN2 ---
Reviewed: Care Plan, H&P, Labs, Medications, Previous Orders, Radiology Changes from previous H/P or p: No Changes Objective Vitals Vital Signs Date Time Temp Pulse Resp B/P (MAP) Pulse Ox O2 Delivery O2 Flow Rate FiO2 10/25/24 09:06 165/88 10/25/24 08:28 98.1 79 19 92 98.1 10/25/24 08:06 Oxymizer 10 N/A Intake/Output Intake and Output 10/25/24 07:00 Intake Total 1540 ml Output Total 2950 ml Balance -1410 ml Intake Oral 1540 ml Output Urine Total 2950 ml # Bowel Movements 1 Medications Current Medications Medications Dose Ordered Sig/Olinda Route Start Time Stop Time Status Last Admin Dose Admin Vancomycin HCl 0 ml @ 0 mls/hr UD IV 10/13/24 23:30 Cancel Atorvastatin Calcium 40 mg HS PO 10/14/24 22:00 10/24/24 22:03 40 MG Amlodipine Besylate 5 mg DAILY PO 10/14/24 10:00 10/25/24 09:06 5 MG Diagnostic Test (Pha) 1 strip Q6HR 10/14/24 00:00 10/25/24 06:26 1 STRIP Insulin Human Regular Q6HR SC 10/14/24 00:00 10/25/24 06:27 6 UNITS Dextrose 50 ml UD PRN IV 10/13/24 23:30 Ondansetron HCl 4 mg Q4HP PRN IV 10/13/24 23:30 10/23/24 11:49 4 MG Acetaminophen 650 mg Q6HP PRN PO 10/13/24 23:30 10/24/24 04:31 650 MG Nitroglycerin 0.4 mg Q5MINP PRN SL 10/13/24 23:30 Morphine Sulfate 2 mg Q30M PRN IV 10/13/24 23:30 Hold Aspirin 81 mg DAILY PO 10/15/24 10:00 10/25/24 09:06 81 MG Heparin Sodium (Porcine) 5,000 units Q12HR SC 10/15/24 10:00 10/25/24 09:17 5,000 UNITS Furosemide 80 mg BIDD IV 10/16/24 07:30 10/25/24 06:25 80 MG Hydromorphone HCl 2 mg Q4HPRN PRN IV 10/17/24 13:15 10/25/24 06:32 2 MG Acetaminophen/ Hydrocodone Bitart 1 tab Q6HP PRN PO 10/19/24 00:30 10/25/24 05:34 1 TAB Epoetin Bran-epbx 8,000 unit TUTHSA@2100 SC 10/21/24 19:45 10/23/24 20:36 8,000 UNIT Sodium Chloride 10 ml QSHIFT@10,22 IV 10/22/24 22:00 10/24/24 22:03 10 ML Vancomycin HCl 0 ml @ 0 mls/hr UD IV 10/22/24 21:30 Sodium Chloride 10 ml QSHIFT@10,22 IV 10/24/24 22:00 10/24/24 22:03 10 ML Levofloxacin/ Dextrose 100 ml @ 100 mls/hr Q48H IV 10/24/24 20:45 UNV Ceftriaxone Sodium/Dextrose 50 ml @ 50 mls/hr DAILY IV 10/25/24 10:00 10/25/24 09:06 50 MLS/HR Laboratory Results Laboratory Tests 10/25/24 05:10 Chemistry Test 10/25/24 05:10 Calcium Level 9.5 mg/dL (8.7-10.4) Urinalysis Test 10/13/24 22:00 10/14/24 17:27 Urine Color Yellow (Yellow) Urine Clarity Turbid (Clear) H Urine pH 6.0 (5.0-9.0) Urine Specific [place] 1.020 (1.001-1.035) Urine Protein 3+ (Negative) H Urine Ketones Negative (Negative) Urine Blood 3+ /uL (Negative) H Urine Nitrite Negative (Negative) Urine Bilirubin Negative (Negative) Urine Urobilinogen Normal mg/dL (Negative) Urine Leukocyte Esterase Negative /uL (Negative) Urine RBC 2 /hpf (0 - 3) Urine WBC 4 /hpf (0 - 3) Urine Squamous Epithelial Cells Few /hpf (<5) Urine Amorphous Crystals Few /hpf (None Seen) Urine Bacteria Mod /hpf (None Seen) H Urine Glucose 4+ mg/dL (Normal) H Urine Creatinine 77.85 mg/dL (30.0-125.0) Urine Sodium 24 mmol/L (40-220) L Urine Total Protein 647.5 mg/dL (1-14) H Microbiology Microbiology Date/Time Source Procedure Growth Status 10/20/24 09:35 Blood Blood Culture - Preliminary NO GROWTH AFTER 72 HOURS OF INCUBATION. Resulted 10/15/24 13:47 Nose MRSA Screen - Final Complete 10/13/24 22:00 Voided Urine Urine Culture - Final Complete Labs and/or images reviewed: Labs reviewed by me, Image(s) reviewed by me Assessment/Plan Assessment/Plan Septic shock with elevated white count altered mental status: Bacteremia with MSSA, ID consult by Dr. Phong Richmond appreciated, vancomycin and Zosyn discontinued started on nafcillin 4 g IV q.4 hours Syncope possibly secondary to sepsis: CT head negative, chest x-ray negative, C- spine CT negative, echocardiogram 55 percent ejection fraction, carotid ultrasound negative, Neurology consult appreciated EEG normal, Cardiology consult by Dr. Diaz appreciated, no further cardiac workup Non STEMI type 2 secondary to sepsis, echo 10/14/2024 shows 55 % ejection fraction Acute kidney injury hemodynamically mediated; multifactorial, BUN creatinine 44 and 2.61 at the time of admission, now worsening 68/6.94, closely following, patient received hemodialysis on 10/16/2024, bicarb drip discontinued Lasix continued Left foot infection with MSSA: Continue nafcillin Acute metabolic encephalopathy Elevated D-dimer 5.50: DVT ruled out , PE ruled out Chronic Left foot infection Consult for Dr. Watts appreciated, MRI left foot shows no osteomyelitis of the 1st metatarsal stump or abscess History of left 1st toe amputation Left knee x-ray negative Chronic calcaneus fracture right foot Hepatomegaly Hypertension Obstructive Sleep apnea: CPAP Uncontrolled diabetes: Insulin sliding scale Hypercholesterolemia Hypothyroidism History of CVA Chronic calcaneal fracture right foot History of coronary artery disease Diabetic medial left foot ulcer: Wound consult, wound cultures growing MSSA on nafcillin Right IJ dialysis cath in place Moderate malnutrition Pain management: On Dilaudid IV Time spent 65 minutes Advanced care planning 20 minutes Condition guarded Conjunctivitis left eye gentamicin eyedrops Repeat blood cultures 10/20/2024 negative Patient accidentally pulled out PICC line, consult placed for another PICC line Plan discussed with: Patient My Orders Orders - ROWENA MEREDITH MD Procedure Category Date Status Time Change Dressing Prn TYLOR 10/24/24 In Process 15:04 Sodium Chloride Lock PHA 10/24/24 In Process (Saline Lock Ns) 22:00 Do Not Use Picc For TYLOR 10/24/24 In Process Blood Cult 15:04 May Draw Blood From [facility] 10/24/24 In Process Picc 15:04 Ok To Use Picc [facility] 10/24/24 In Process 15:04 Change Picc Dressing [facility] 10/24/24 In Process Q7 Days 15:04 Us Guided Vascular US 10/24/24 Taken Access 15:04 Date of Service: Oct 25, 2024 Billing Provider: ROWENA MEREDITH MD Common Visit Codes: 46030-[id number] CARE 30-74 MIN ROWENA MEREDITH MD Oct 25, 2024 09:23
[2024-10-25] MEDS: HYDROcodone-ACET 7.5/325MG TAB PO SCH (09:30)
[2024-10-25] MEDS: GENTAMICIN OPTH sol 0.3% 5ml LEFTEYE SCH (12:39)
--- NOTE | 2024-10-25 13:14 | DVHPN2 ---
Progress Note Date Seen: Oct 25, 2024 Medical Necessity Reason Pt with a Central, PICC or Fol: Yes The following are medically ne: [place] Catheter Subjective Patient reports: No new complaints Other Systems: Patient seen and examined by myself today in follow-up Patient examined hemodialysis, blood pressure stable Objective vital signs Vital Sign Date Time Temp Pulse Resp B/P (MAP) Pulse Ox O2 Delivery O2 Flow Rate FiO2 10/25/24 12:43 78 18 180/68 10/25/24 11:50 98.2 96 98.2 10/25/24 08:06 Oxymizer 10 N/A Total Intake and Output 10/24/24 10/24/24 10/25/24 15:00 23:00 07:00 Intake Total 1300 ml 240 ml Output Total 1100 ml 1850 ml Balance 200 ml -1610 ml medications Current Medications Medications Dose Ordered Sig/Olinda Route Start Time Stop Time Status Last Admin Dose Admin Vancomycin HCl 0 ml @ 0 mls/hr UD IV 10/13/24 23:30 Cancel Atorvastatin Calcium 40 mg HS PO 10/14/24 22:00 10/24/24 22:03 40 MG Amlodipine Besylate 5 mg DAILY PO 10/14/24 10:00 10/25/24 09:06 5 MG Diagnostic Test (Pha) 1 strip Q6HR 10/14/24 00:00 10/25/24 12:27 1 STRIP Insulin Human Regular Q6HR SC 10/14/24 00:00 10/25/24 12:44 6 UNITS Dextrose 50 ml UD PRN IV 10/13/24 23:30 Ondansetron HCl 4 mg Q4HP PRN IV 10/13/24 23:30 10/23/24 11:49 4 MG Acetaminophen 650 mg Q6HP PRN PO 10/13/24 23:30 10/24/24 04:31 650 MG Nitroglycerin 0.4 mg Q5MINP PRN SL 10/13/24 23:30 Morphine Sulfate 2 mg Q30M PRN IV 10/13/24 23:30 Hold Aspirin 81 mg DAILY PO 10/15/24 10:00 10/25/24 09:06 81 MG Heparin Sodium (Porcine) 5,000 units Q12HR SC 10/15/24 10:00 10/25/24 09:17 5,000 UNITS Furosemide 80 mg BIDD IV 10/16/24 07:30 10/25/24 06:25 80 MG Hydromorphone HCl 2 mg Q4HPRN PRN IV 10/17/24 13:15 10/25/24 12:43 2 MG Epoetin Bran-epbx 8,000 unit TUTHSA@2100 SC 10/21/24 19:45 10/23/24 20:36 8,000 UNIT Vancomycin HCl 0 ml @ 0 mls/hr UD IV 10/22/24 21:30 Sodium Chloride 10 ml QSHIFT@,22 IV 10/24/24 22:00 10/25/24 10:00 10 ML Levofloxacin/ Dextrose 100 ml @ 100 mls/hr Q48H IV 10/24/24 20:45 UNV Acetaminophen/ Hydrocodone Bitart 1 tab Q4HR PO 10/25/24 09:30 Gentamicin Sulfate 1 drop Q4HR LEFTEYE 10/25/24 10:00 10/25/24 12:39 1 DROP Cefpodoxime Proxetil 200 mg BID PO 10/25/24 22:00 UNV Cefpodoxime Proxetil 200 mg DAILY PO 10/25/24 21:00 UNV Examination: LUNGS:Normal, CVS:Normal, MSK:Normal laboratory and microbiology Laboratory Tests 10/25/24 05:10 Test 10/25/24 05:10 Range/Units Serum Glucose 240 H 74-106 mg/dL Microbiology Date/Time Source Procedure Growth Status 10/20/24 09:35 Blood Blood Culture - Final NO GROWTH AFTER 5 DAYS OF INCUBATION. Complete 10/15/24 13:47 Nose MRSA Screen - Final Complete 10/13/24 22:00 Voided Urine Urine Culture - Final Complete Problem List/Assessment/Plan Problem List/Assessment/Plan Acute kidney injury superimposed advanced Chronic Kidney Disease secondary ATN requiring initiation of hemodialysis MSSA bacteremia Urinary tract infection Syncope Obstructive sleep apnea Hypertension Hyponatremia due to water retention Recommendations Continue with UF to 3 L as tolerated Epogen 93168 IV post hemodialysis Fluid restrictions IV antibiotics Renal diet Blood pressure control Radiology for tunneled hemodialysis catheter We will continue to follow up Plan discussed with: Patient My Orders My Orders Orders - KHRIS SMITH MD Procedure Category Date Status Time * Radiologist Consult CONS 10/25/24 Transmitted 13:10 Dietary Evaluation Review Comments: 1. Consider adding nephrovite 2. Consider adding renal to diet restrictions 3. Consider adding Nepro shake if pt with low PO intake Expected Outcomes/Goals: 1. Pt will consume >75% of estimated needs within 3-5 days KHRIS SMITH MD Oct 25, 2024 13:14
[2024-10-25] MEDS: LIDOCAINE 2%HCL (LOCAL ANESTH.) INJ 20ML MDV ONE (15:08)
[2024-10-25] MEDS: fentaNYL CITRATE 100 MCG/2 ML VL ONE (15:08)
[2024-10-25] MEDS: ceFAZolin 1GM/50ML 50 ML IV ONE (15:09)
[2024-10-25] MEDS: HEPARIN SODIUM (PORCINE) 5000 UNITS/ML 1ML VIAL ONE (15:25)
--- NOTE | 2024-10-25 16:41 | DVHPN2 ---
Consult Progress Note Date Seen: Oct 25, 2024 Subjective Patient reports: Other (remains on 10 liters nasal canula , fluid overloaded ) Objective vital signs Vital Sign Date Time Temp Pulse Resp B/P (MAP) Pulse Ox O2 Delivery O2 Flow Rate FiO2 10/25/24 12:43 78 18 180/68 10/25/24 11:50 98.2 96 98.2 10/25/24 08:06 Oxymizer 10 N/A Total Intake and Output 10/24/24 10/24/24 10/25/24 15:00 23:00 07:00 Intake Total 1300 ml 240 ml Output Total 1100 ml 1850 ml Balance 200 ml -1610 ml medications Current Medications Medications Dose Ordered Sig/Olinda Route Start Time Stop Time Status Last Admin Dose Admin Vancomycin HCl 0 ml @ 0 mls/hr UD IV 10/13/24 23:30 Cancel Atorvastatin Calcium 40 mg HS PO 10/14/24 22:00 10/24/24 22:03 40 MG Amlodipine Besylate 5 mg DAILY PO 10/14/24 10:00 10/25/24 09:06 5 MG Diagnostic Test (Pha) 1 strip Q6HR 10/14/24 00:00 10/25/24 12:27 1 STRIP Insulin Human Regular Q6HR SC 10/14/24 00:00 10/25/24 12:44 6 UNITS Dextrose 50 ml UD PRN IV 10/13/24 23:30 Ondansetron HCl 4 mg Q4HP PRN IV 10/13/24 23:30 10/23/24 11:49 4 MG Acetaminophen 650 mg Q6HP PRN PO 10/13/24 23:30 10/24/24 04:31 650 MG Nitroglycerin 0.4 mg Q5MINP PRN SL 10/13/24 23:30 Morphine Sulfate 2 mg Q30M PRN IV 10/13/24 23:30 Hold Aspirin 81 mg DAILY PO 10/15/24 10:00 10/25/24 09:06 81 MG Heparin Sodium (Porcine) 5,000 units Q12HR SC 10/15/24 10:00 10/25/24 09:17 5,000 UNITS Furosemide 80 mg BIDD IV 10/16/24 07:30 10/25/24 06:25 80 MG Hydromorphone HCl 2 mg Q4HPRN PRN IV 10/17/24 13:15 10/25/24 12:43 2 MG Epoetin Rban-epbx 8,000 unit TUTHSA@2100 SC 10/21/24 19:45 10/23/24 20:36 8,000 UNIT Vancomycin HCl 0 ml @ 0 mls/hr UD IV 10/22/24 21:30 Sodium Chloride 10 ml QSHIFT@10,22 IV 10/24/24 22:00 10/25/24 10:00 10 ML Levofloxacin/ Dextrose 100 ml @ 100 mls/hr Q48H IV 10/24/24 20:45 UNV Acetaminophen/ Hydrocodone Bitart 1 tab Q4HR PO 10/25/24 09:30 Gentamicin Sulfate 1 drop Q4HR LEFTEYE 10/25/24 10:00 10/25/24 12:39 1 DROP Cefpodoxime Proxetil 200 mg BID PO 10/25/24 22:00 UNV Cefpodoxime Proxetil 200 mg DAILY PO 10/25/24 21:00 Physical Exam: - General: Morbidly obese. - Neck: Supple. No masses. - HEENT: PERRL. Normal lids and conjunctiva. Moist mucous membranes. Oropharynx without lesions, exudates, or excessive erythema. Normal appearance of the external aspects of the nose and ears. Right maxillary sinus tenderness. - Heart: Regular rhythm, normal rate. No murmur. No lower extremity edema. - Lungs: Crackles present bilaterally. still on 10 liters nasal canula - Abdomen: Mild distention. Soft. Non-tender. Non-distended. No masses or abdominal hernia. fluid in abdomen and lower extremities bilaterally - MSK: Reports bilateral knee pain and back pain. No digital cyanosis. Normal strength and tone in all four limbs. volume overloaded. foot ulcer appears clean ,dry and intact with clean granulated tissue at site of amputation - Skin: Warm and dry. Right lower extremity cellulitis extending from ankle to great toe with drainage from a 1.1 cm ulcer. Left foot wounds on great toe and second toe, appearing chronic with ulcers. - Neuro: Alert. No facial droop or slurred speech. Extra-ocular movements intact. Sensation intact to soft touch in all four limbs. - Psych: Appropriate mood. Full affect. Oriented to person, place, time, and situation. laboratory and microbiology Laboratory Tests 10/25/24 05:10 Test 10/25/24 05:10 Range/Units Serum Glucose 240 H 74-106 mg/dL Problem List/Assessment/Plan Problems(with codes): (1) Status post amputation of left foot (2) Occluded PICC line (3) Cellulitis of right lower extremity (4) MSSA (methicillin susceptible Staphylococcus aureus) septicemia (5) Leukocytosis, unspecified (6) Metabolic encephalopathy (7) Diabetic foot ulcer (8) Cellulitis (9) Leg wound, left (10) Leg pain Problem List/Assessment/Plan ID Problem List: - MSSA bacteremia - Right foot cellulitis - Bilateral non-healing diabetic foot ulcers - Uncontrolled diabetes mellitus - Acute on chronic kidney disease - Morbid obesity - Dyslipidemia - Hypertension - History of stroke - Hypoxia - Severe sepsis - Lactic acidosis - Altered mental status - Hepatic steatosis - Possible need for further debridement Assessment This is a 69-year-old male with a past medical history of uncontrolled diabetes mellitus, hypertension, chronic kidney disease (baseline creatinine ~2), dyslipidemia, stroke, thyroid disease, morbid obesity, and multiple chronic non- healing diabetic foot ulcers on both feet. He has undergone prior amputations of the left and right great toes. The patient presents with an unwitnessed syncopal episode in the bathroom lasting approximately 4 hours. He denies any pre- syncopal symptoms, shortness of breath, fevers, or chills prior to the episode. On admission, the patient was febrile to 102.8F and hypoxic, requiring supplemental oxygen. Examination revealed right lower extremity cellulitis extending from the ankle to the great toe with drainage from a 1.1 cm ulcer. Laboratory findings include significant leukocytosis (WBC 36), anemia (Hb 12.2), worsening renal function (creatinine increased from baseline 2.61 to 2.7, BUN elevated to 89-92), hyperglycemia (glucose 279), and elevated lactic acid (4.5). Blood cultures grew MSSA on the 14th, and wound cultures from the right great toe grew MSSA on the th. Imaging studies showed right maxillary sinus opacification concerning for acute sinusitis. Left foot CT demonstrated mild soft tissue swelling without abscess or osteomyelitis. Right foot MRI indicated soft tissue inflammatory changes consistent with possible cellulitis but no abscess or osteomyelitis. The patient developed progressive hypoxia requiring up to 10 liters of supplemental oxygen. A V/Q scan ruled out pulmonary embolism. He underwent dialysis for worsening renal failure and volume overload, with placement of a dialysis catheter. 10/20:Blood cultures negative for 24 hours , not having an intolerance to nepsillin 10/21: chest x-ray shows pulmonary vascular congestion that is unchanged , on 10 liters nasal canula, blood cultures have no growth to date after 48 hours 10/22: White count is going up despite being on appropriate antibiotic therapy , possibly rellated to larger bacteria than anticipated or patients obesity with a BMI of 41. 10/24: white count is up to 18.8 despite switching antibiotics , at this point suspect patient has suppresed bacteria that has not been caught on cultures 10/25: Blood cultures remain negative , white count is now 14.7 Plan: - switch patietn from ceftriaxone to oral cefadoxym 200 milligrams daily for 4 weeks - dose of vancomycin has been therapuetic - Continue vancomycin Iv for 4 weeks to be given with dialysis at dialysis center , will determine dosage based off of patients clearance of vancomycin after dialysis - If white count continues to go up or patient demonstrates other signs of sepsis recommend repeating blood cultures , hold off for now - have dialysis catheter placed by radiology - Renal Function: - Monitor renal function closely. - Avoid nephrotoxic medications. - prior to placement of permanent dialysis catheter will need to ensure clearance of bacteremia - Infectious Disease and Debridement: - defer to podiatry for potential further debridement of the right foot infection. - If bacteremia persists, consider transesophageal echocardiogram (VANDANA) to rule out endocarditis. - will fu on blood cultures - Diabetes Management: - Optimize glycemic control with insulin therapy. keep BG<180 - Monitor blood glucose levels closely. - Respiratory Support: - Continue supplemental oxygen therapy. - Monitor oxygen saturation and adjust oxygen delivery as needed. - Sepsis Management: - Monitor lactic acid levels. - Provide appropriate supportive care for severe sepsis. Wound Care: - Continue wound care for bilateral foot ulcers. - Coordinate with wound care specialists and home health services. Other Considerations: - Address morbid obesity with nutritional support and weight management strategies. - Monitor liver function tests due to hepatic steatosis. Plan discussed with: Other Dietary Evaluation Review Comments: 1. Consider adding nephrovite 2. Consider adding renal to diet restrictions 3. Consider adding Nepro shake if pt with low PO intake Expected Outcomes/Goals: 1. Pt will consume >75% of estimated needs within 3-5 days KINGS ALVAREZ MD Oct 25, 2024 16:41
--- NOTE | 2024-10-25 17:52 | DVH ---
PROCEDURE: Ultrasound-guided PICC line placement. HISTORY: PICC Line Placement DOCUMENTATION: Ultrasound guided placement of PICC line TECHNIQUE: Routine ultrasound prep of the site. FINDINGS: Ultrasound-guided placement of PICC line. IMPRESSION: 1. Ultrasound guided placement of PICC line. 2. No radiographic images submitted for confirmation.
--- NOTE | 2024-10-25 20:53 | DVH ---
PROCEDURE: TUNNELED CENTRAL VENOUS CATHETER PLACEMENT USING FLUOROSCOPY AND ULTRASOUND HISTORY: TD CATH DOCUMENTATION: Informed consent was obtained and a procedural time out was performed. SEDATION: Moderate sedation was utilized during the procedure. The patient received benzodiazepines a nd opioids, the dosing of which was documented in the patient s permanent medical record. Pre-sedatio n history and evaluation revealed no contraindications to sedation. The patient s level of consciousn ess and physiologic status was monitored continuously by the physician and nursing staff throughout t he procedure. Total intra-service moderate sedation time was 30 minutes. FLUORO: 1 minutes, DAP: 2 mGy TECHNIQUE: The skin over the RIGHT internal jugular vein and chest was sterilely prepped, draped and anesthetized with 1% lidocaine with epinephrine. The vein was accessed with a 21-gauge needle under u ltrasound guidance with an image archived in the PACS. A guidewire was then passed into the central v eins under fluoroscopy. The subcutaneous tunnel was anesthetized with 1% lidocaine and the catheter w as tunneled to the venous entry site, cut to the appropriate length, and inserted through a peel away sheath. A final radiograph was obtained, the catheter was flushed and secured in place, and sterile dressings were applied. Procedural physician complied with all CLIP criteria, including preprocedural hand hygiene and use of maximum sterile barriers including hat, gown, sterile gloves, mask, and head to toe drape. The neck and chest were prepped with chlorhexidine solution and draped in the usual sterile fashion. The prep solution was allowed to dry prior to puncture. FINDINGS: Ultrasound demonstrates a patent RIGHT internal jugular vein. The tip of the catheter was p laced near the cavoatrial junction. No complications are identified. IMPRESSION: SUCCESSFUL 14.5 x23 cn MAORI DUAL-LUMEN POWER INJECTABLE TUNNELED CENTRAL VENOUS CATHETER PLACEMENT. THE CATHETER IS READY FOR IMMEDIATE USE.
[2024-10-25] MEDS ORDERED: CEFPODOXIME PROXETIL 200 MG TAB PO SCH (22:00)
[2024-10-25] MEDS: CEFPODOXIME PROXETIL 200 MG TAB PO SCH (22:01)
[2024-10-26] VITALS (7 sets, daily range): BP systolic 144–176; BP diastolic 75–92; PULSE 69–82; RESP 18–20; TEMP 98–98.6; O2SAT 90–97
[2024-10-26 06:40] LABS: Monocytes # (auto) 1.2 10 ^3/uL (0-1.3)
[2024-10-26 06:45] LABS: Basophils # (auto) 0.1 10 ^3/uL (0-0.2); Basophils % (auto) 0.4 % (0.0-2.0); Eosinophils # (auto) 0.3 10 ^3/uL (0-0.8); Eosinophils % (auto) 2.1 % (0.0-7.0); Hematocrit 29.5 % (41.0-53.0); Hemoglobin 9.7 g/dL (13.5-17.5); Lymphocytes # (auto) 1.9 10 ^3/uL (0.4-5.4); Lymphocytes % (auto) 12.6 % (10.0-50.0); Mean Corpuscular Hemoglobin 25.9 pg (28.0-32.0); Mean Corpuscular Hgb Conc. 32.8 g/dL (32.0-36.0); Mean Corpuscular Volume 79.1 fL (80.0-100.0); Monocytes % (auto) 7.8 % (0.0-12.0); Neutrophils # (auto) 11.7 10 ^3/uL (1.6-8.6); Neutrophils % (auto) 77.1 % (37.0-80.0); Platelet Count (auto) 349 10^3/uL (140-450); Red Blood Cells 3.72 10^6/uL (4.5-5.90); White Blood Cell 15.2 10^3/uL (4.4-10.8)
[2024-10-26 07:09] LABS: Anion Gap 12 (5-15); Calcium 9.6 mg/dL (8.7-10.4); Carbon Dioxide 26 mmol/L (20-31); Chloride 93 mmol/L (98-107); Sodium 131 mmol/L (136-145)
[2024-10-26 07:15] LABS: Blood Urea Nitrogen 67 mg/dL (9-23); Glucose 213 mg/dL (74-106)
--- NOTE | 2024-10-26 09:35 | DVHPN2 ---
Reviewed: Care Plan, H&P, Labs, Medications, Previous Orders, Radiology Changes from previous H/P or p: No Changes Objective Vitals Vital Signs Date Time Temp Pulse Resp B/P (MAP) Pulse Ox O2 Delivery O2 Flow Rate FiO2 10/26/24 06:37 69 20 156/76 10/26/24 05:21 98.6 10/26/24 05:00 90 10/25/24 20:00 Oxymizer 5 N/A Intake/Output Intake and Output 10/26/24 07:00 Intake Total 1250 ml Output Total 4600 ml Balance -3350 ml Intake Oral 1250 ml Output Urine Total 4600 ml Medications Current Medications Medications Dose Ordered Sig/Olinda Route Start Time Stop Time Status Last Admin Dose Admin Vancomycin HCl 0 ml @ 0 mls/hr UD IV 10/13/24 23:30 Cancel Atorvastatin Calcium 40 mg HS PO 10/14/24 22:00 10/25/24 21:59 40 MG Amlodipine Besylate 5 mg DAILY PO 10/14/24 10:00 10/25/24 09:06 5 MG Diagnostic Test (Pha) 1 strip Q6HR 10/14/24 00:00 10/26/24 06:38 1 STRIP Insulin Human Regular Q6HR SC 10/14/24 00:00 10/26/24 06:37 4 UNITS Dextrose 50 ml UD PRN IV 10/13/24 23:30 Ondansetron HCl 4 mg Q4HP PRN IV 10/13/24 23:30 10/26/24 06:32 4 MG Acetaminophen 650 mg Q6HP PRN PO 10/13/24 23:30 10/26/24 04:21 650 MG Nitroglycerin 0.4 mg Q5MINP PRN SL 10/13/24 23:30 Morphine Sulfate 2 mg Q30M PRN IV 10/13/24 23:30 Hold Aspirin 81 mg DAILY PO 10/15/24 10:00 10/25/24 09:06 81 MG Heparin Sodium (Porcine) 5,000 units Q12HR SC 10/15/24 10:00 10/25/24 21:59 5,000 UNITS Furosemide 80 mg BIDD IV 10/16/24 07:30 10/25/24 18:18 80 MG Hydromorphone HCl 2 mg Q4HPRN PRN IV 10/17/24 13:15 10/26/24 06:37 2 MG Epoetin Bran-epbx 8,000 unit TUTHSA@2100 SC 10/21/24 19:45 10/23/24 20:36 8,000 UNIT Vancomycin HCl 0 ml @ 0 mls/hr UD IV 10/22/24 21:30 Sodium Chloride 10 ml QSHIFT@10,22 IV 10/24/24 22:00 10/25/24 21:59 10 ML Levofloxacin/ Dextrose 100 ml @ 100 mls/hr Q48H IV 10/24/24 20:45 UNV Acetaminophen/ Hydrocodone Bitart 1 tab Q4HR PO 10/25/24 09:30 10/26/24 06:31 1 TAB Gentamicin Sulfate 1 drop Q4HR LEFTEYE 10/25/24 10:00 10/26/24 06:32 1 DROP Cefpodoxime Proxetil 200 mg BID PO 10/25/24 22:00 UNV Cefpodoxime Proxetil 200 mg DAILY PO 10/25/24 21:00 10/25/24 22:01 200 MG Laboratory Results Laboratory Tests 10/26/24 05:00 Chemistry Test 10/26/24 05:00 Calcium Level 9.6 mg/dL (8.7-10.4) Urinalysis Test 10/13/24 22:00 10/14/24 17:27 Urine Color Yellow (Yellow) Urine Clarity Turbid (Clear) H Urine pH 6.0 (5.0-9.0) Urine Specific [place] 1.020 (1.001-1.035) Urine Protein 3+ (Negative) H Urine Ketones Negative (Negative) Urine Blood 3+ /uL (Negative) H Urine Nitrite Negative (Negative) Urine Bilirubin Negative (Negative) Urine Urobilinogen Normal mg/dL (Negative) Urine Leukocyte Esterase Negative /uL (Negative) Urine RBC 2 /hpf (0 - 3) Urine WBC 4 /hpf (0 - 3) Urine Squamous Epithelial Cells Few /hpf (<5) Urine Amorphous Crystals Few /hpf (None Seen) Urine Bacteria Mod /hpf (None Seen) H Urine Glucose 4+ mg/dL (Normal) H Urine Creatinine 77.85 mg/dL (30.0-125.0) Urine Sodium 24 mmol/L (40-220) L Urine Total Protein 647.5 mg/dL (1-14) H Microbiology Microbiology Date/Time Source Procedure Growth Status 10/20/24 09:35 Blood Blood Culture - Final NO GROWTH AFTER 5 DAYS OF INCUBATION. Complete 10/15/24 13:47 Nose MRSA Screen - Final Complete 10/13/24 22:00 Voided Urine Urine Culture - Final Complete Labs and/or images reviewed: Labs reviewed by me, Image(s) reviewed by me Assessment/Plan Assessment/Plan Septic shock with elevated white count altered mental status: Bacteremia with MSSA, ID consult by Dr. Phong Richmond appreciated, vancomycin and Zosyn discontinued started on nafcillin 4 g IV q.4 hours Syncope possibly secondary to sepsis: CT head negative, chest x-ray negative, C- spine CT negative, echocardiogram 55 percent ejection fraction, carotid ultrasound negative, Neurology consult appreciated EEG normal, Cardiology consult by Dr. Diaz appreciated, no further cardiac workup Non STEMI type 2 secondary to sepsis, echo 10/14/2024 shows 55 % ejection fraction Acute kidney injury hemodynamically mediated; multifactorial, BUN creatinine 44 and 2.61 at the time of admission, now worsening 68/6.94, closely following, patient received hemodialysis on 10/16/2024, bicarb drip discontinued Lasix continued Left foot infection with MSSA: Continue nafcillin Acute metabolic encephalopathy Elevated D-dimer 5.50: DVT ruled out , PE ruled out Chronic Left foot infection Consult for Dr. Watts appreciated, MRI left foot shows no osteomyelitis of the 1st metatarsal stump or abscess History of left 1st toe amputation Left knee x-ray negative Chronic calcaneus fracture right foot Hepatomegaly Hypertension Obstructive Sleep apnea: CPAP Uncontrolled diabetes: Insulin sliding scale Hypercholesterolemia Hypothyroidism History of CVA Chronic calcaneal fracture right foot History of coronary artery disease Diabetic medial left foot ulcer: Wound consult, wound cultures growing MSSA on nafcillin Right IJ dialysis cath in place Moderate malnutrition Pain management: On Dilaudid IV Time spent 65 minutes Advanced care planning 20 minutes Condition guarded Conjunctivitis left eye gentamicin eyedrops Repeat blood cultures 10/20/2024 negative Plan discussed with: Patient Date of Service: Oct 26, 2024 Billing Provider: ROWENA MEREDITH MD Common Visit Codes: [id number] INP/OBS CARE(HIGH) ROWENA MEREDITH MD Oct 26, 2024 09:35
--- NOTE | 2024-10-26 12:53 | DVHPN2 ---
Progress Note Date Seen: Oct 26, 2024 Medical Necessity Reason Pt with a Central, PICC or Fol: Yes The following are medically ne: [place] Catheter Subjective Patient reports: No new complaints Other Systems: Patient seen and examined by myself today in follow-up Objective vital signs Vital Sign Date Time Temp Pulse Resp B/P (MAP) Pulse Ox O2 Delivery O2 Flow Rate FiO2 10/26/24 11:30 71 18 148/80 10/26/24 09:00 98.0 97 98.0 10/25/24 20:00 Oxymizer 5 N/A Total Intake and Output 10/25/24 10/25/24 10/26/24 15:00 23:00 07:00 Intake Total 500 ml 750 ml Output Total 2600 ml 2000 ml Balance -2100 ml -1250 ml medications Current Medications Medications Dose Ordered Sig/Olinda Route Start Time Stop Time Status Last Admin Dose Admin Vancomycin HCl 0 ml @ 0 mls/hr UD IV 10/13/24 23:30 Cancel Atorvastatin Calcium 40 mg HS PO 10/14/24 22:00 10/25/24 21:59 40 MG Amlodipine Besylate 5 mg DAILY PO 10/14/24 10:00 10/26/24 09:58 5 MG Diagnostic Test (Pha) 1 strip Q6HR 10/14/24 00:00 10/26/24 06:38 1 STRIP Insulin Human Regular Q6HR SC 10/14/24 00:00 10/26/24 06:37 4 UNITS Dextrose 50 ml UD PRN IV 10/13/24 23:30 Ondansetron HCl 4 mg Q4HP PRN IV 10/13/24 23:30 10/26/24 06:32 4 MG Acetaminophen 650 mg Q6HP PRN PO 10/13/24 23:30 10/26/24 04:21 650 MG Nitroglycerin 0.4 mg Q5MINP PRN SL 10/13/24 23:30 Morphine Sulfate 2 mg Q30M PRN IV 10/13/24 23:30 Hold Aspirin 81 mg DAILY PO 10/15/24 10:00 10/25/24 09:06 81 MG Heparin Sodium (Porcine) 5,000 units Q12HR SC 10/15/24 10:00 10/25/24 21:59 5,000 UNITS Furosemide 80 mg BIDD IV 10/16/24 07:30 10/25/24 18:18 80 MG Hydromorphone HCl 2 mg Q4HPRN PRN IV 10/17/24 13:15 10/26/24 11:30 2 MG Epoetin Bran-epbx 8,000 unit TUTHSA@2100 SC 10/21/24 19:45 10/23/24 20:36 8,000 UNIT Vancomycin HCl 0 ml @ 0 mls/hr UD IV 10/22/24 21:30 Sodium Chloride 10 ml QSHIFT@, IV 10/24/24 22:00 10/26/24 10:00 10 ML Levofloxacin/ Dextrose 100 ml @ 100 mls/hr Q48H IV 10/24/24 20:45 UNV Acetaminophen/ Hydrocodone Bitart 1 tab Q4HR PO 10/25/24 09:30 10/26/24 09:59 1 TAB Gentamicin Sulfate 1 drop Q4HR LEFTEYE 10/25/24 10:00 10/26/24 10:00 1 DROP Cefpodoxime Proxetil 200 mg BID PO 10/25/24 22:00 UNV Cefpodoxime Proxetil 200 mg DAILY PO 10/25/24 21:00 10/26/24 10:08 200 MG Examination: LUNGS:Normal, CVS:Normal, MSK:Abnormal laboratory and microbiology Laboratory Tests 10/26/24 05:00 Test 10/26/24 05:00 Range/Units Serum Glucose 213 H 74-106 mg/dL Microbiology Date/Time Source Procedure Growth Status 10/20/24 09:35 Blood Blood Culture - Final NO GROWTH AFTER 5 DAYS OF INCUBATION. Complete 10/15/24 13:47 Nose MRSA Screen - Final Complete 10/13/24 22:00 Voided Urine Urine Culture - Final Complete Problem List/Assessment/Plan Problem List/Assessment/Plan Acute kidney injury superimposed Chronic Kidney Disease secondary hemodynamic mediated, FeNa <1% requiring initiation of hemodialysis MSSA bacteremia Urinary tract infection Syncope Obstructive sleep apnea Hypertension Hyponatremia due to water retention Recommendations HD tomorrow Epogen 44585 IV post hemodialysis Fluid restrictions IV antibiotics Low-dose dopamine Renal diet Blood pressure control We will continue to follow up Plan discussed with: Patient My Orders My Orders Orders - KHRIS SMITH MD Procedure Category Date Status Time * Radiologist Consult CONS 10/25/24 Transmitted 13:10 Dopamine 1600mcg/Ml PHA 10/26/24 Logged [id number] 13:00 Dietary Evaluation Review Comments: 1. Consider adding nephrovite 2. Consider adding renal to diet restrictions 3. Consider adding Nepro shake if pt with low PO intake Expected Outcomes/Goals: 1. Pt will consume >75% of estimated needs within 3-5 days KHRIS SMITH MD Oct 26, 2024 12:53
[2024-10-26] MEDS: DOPamine 1600MCG/ML D5W 250 ML IV SCH (15:01)
[2024-10-26] MEDS: HYDROmorphone HCL 2 MG/ML VL/or syr IV PRN (16:46)
[2024-10-27] VITALS (8 sets, daily range): BP systolic 122–161; BP diastolic 62–92; PULSE 65–88; RESP 16–20; TEMP 98–98.4; O2SAT 94–98
[2024-10-27 07:02] LABS: Anion Gap 13 (5-15); Carbon Dioxide 25 mmol/L (20-31); Chloride 92 mmol/L (98-107); Potassium 4.1 mmol/L (3.5-5.1); Sodium 130 mmol/L (136-145)
[2024-10-27 07:03] LABS: Calcium 9.8 mg/dL (8.7-10.4)
[2024-10-27 07:08] LABS: BUN/Creatinine Ratio 10.7 (10.0-20.0); Blood Urea Nitrogen 74 mg/dL (9-23); Glucose 275 mg/dL (74-106)
[2024-10-27 07:14] LABS: Basophils # (auto) 0.1 10 ^3/uL (0-0.2); Basophils % (auto) 0.4 % (0.0-2.0); Eosinophils # (auto) 0.4 10 ^3/uL (0-0.8); Eosinophils % (auto) 2.5 % (0.0-7.0); Hematocrit 30.2 % (41.0-53.0); Hemoglobin 9.9 g/dL (13.5-17.5); Lymphocytes # (auto) 1.7 10 ^3/uL (0.4-5.4); Lymphocytes % (auto) 11.6 % (10.0-50.0); Mean Corpuscular Hemoglobin 25.9 pg (28.0-32.0); Mean Corpuscular Hgb Conc. 32.8 g/dL (32.0-36.0); Monocytes % (auto) 6.5 % (0.0-12.0); Neutrophils # (auto) 11.7 10 ^3/uL (1.6-8.6); Platelet Count (auto) 379 10^3/uL (140-450); Red Blood Cells 3.82 10^6/uL (4.5-5.90); White Blood Cell 14.8 10^3/uL (4.4-10.8)
--- NOTE | 2024-10-27 09:49 | DVHPN2 ---
Reviewed: Care Plan, H&P, Labs, Medications, Previous Orders, Radiology Changes from previous H/P or p: No Changes Objective Vitals Vital Signs Date Time Temp Pulse Resp B/P (MAP) Pulse Ox O2 Delivery O2 Flow Rate FiO2 10/27/24 08:49 98.4 88 20 122/62 (82) 94 98.4 10/26/24 20:00 Oxymizer 5 N/A Intake/Output Intake and Output 10/27/24 07:00 Intake Total 1200 ml Output Total 3250 ml Balance -2050 ml Intake Oral 1200 ml Output Urine Total 3250 ml Medications Current Medications Medications Dose Ordered Sig/Olinda Route Start Time Stop Time Status Last Admin Dose Admin Vancomycin HCl 0 ml @ 0 mls/hr UD IV 10/13/24 23:30 Cancel Atorvastatin Calcium 40 mg HS PO 10/14/24 22:00 10/26/24 21:29 40 MG Amlodipine Besylate 5 mg DAILY PO 10/14/24 10:00 10/26/24 09:58 5 MG Diagnostic Test (Pha) 1 strip Q6HR 10/14/24 00:00 10/27/24 05:52 1 STRIP Insulin Human Regular Q6HR SC 10/14/24 00:00 10/27/24 06:01 6 UNITS Dextrose 50 ml UD PRN IV 10/13/24 23:30 Ondansetron HCl 4 mg Q4HP PRN IV 10/13/24 23:30 10/27/24 06:40 4 MG Acetaminophen 650 mg Q6HP PRN PO 10/13/24 23:30 10/26/24 04:21 650 MG Nitroglycerin 0.4 mg Q5MINP PRN SL 10/13/24 23:30 Morphine Sulfate 2 mg Q30M PRN IV 10/13/24 23:30 Hold Aspirin 81 mg DAILY PO 10/15/24 10:00 10/25/24 09:06 81 MG Heparin Sodium (Porcine) 5,000 units Q12HR SC 10/15/24 10:00 10/25/24 21:59 5,000 UNITS Furosemide 80 mg BIDD IV 10/16/24 07:30 10/27/24 05:52 80 MG Epoetin Bran-epbx 8,000 unit TUTHSA@2100 SC 10/21/24 19:45 10/23/24 20:36 8,000 UNIT Vancomycin HCl 0 ml @ 0 mls/hr UD IV 10/22/24 21:30 Sodium Chloride 10 ml QSHIFT@10,22 IV 10/24/24 22:00 10/26/24 21:36 10 ML Levofloxacin/ Dextrose 100 ml @ 100 mls/hr Q48H IV 10/24/24 20:45 UNV Acetaminophen/ Hydrocodone Bitart 1 tab Q4HR PO 10/25/24 09:30 10/27/24 04:04 1 TAB Gentamicin Sulfate 1 drop Q4HR LEFTEYE 10/25/24 10:00 10/27/24 05:42 1 DROP Cefpodoxime Proxetil 200 mg BID PO 10/25/24 22:00 UNV Cefpodoxime Proxetil 200 mg DAILY PO 10/25/24 21:00 10/26/24 10:08 200 MG Dopamine HCl/ Dextrose 250 ml @ 9.825 mls/ hr Q24H IV 10/26/24 13:00 10/26/24 15:01 9.825 MLS/HR Hydromorphone HCl 2 mg Q4HPRN PRN IV 10/26/24 16:30 10/27/24 06:42 2 MG Laboratory Results Laboratory Tests 10/27/24 05:40 Chemistry Test 10/27/24 05:40 Calcium Level 9.8 mg/dL (8.7-10.4) Urinalysis Test 10/13/24 22:00 10/14/24 17:27 Urine Color Yellow (Yellow) Urine Clarity Turbid (Clear) H Urine pH 6.0 (5.0-9.0) Urine Specific [place] 1.020 (1.001-1.035) Urine Protein 3+ (Negative) H Urine Ketones Negative (Negative) Urine Blood 3+ /uL (Negative) H Urine Nitrite Negative (Negative) Urine Bilirubin Negative (Negative) Urine Urobilinogen Normal mg/dL (Negative) Urine Leukocyte Esterase Negative /uL (Negative) Urine RBC 2 /hpf (0 - 3) Urine WBC 4 /hpf (0 - 3) Urine Squamous Epithelial Cells Few /hpf (<5) Urine Amorphous Crystals Few /hpf (None Seen) Urine Bacteria Mod /hpf (None Seen) H Urine Glucose 4+ mg/dL (Normal) H Urine Creatinine 77.85 mg/dL (30.0-125.0) Urine Sodium 24 mmol/L (40-220) L Urine Total Protein 647.5 mg/dL (1-14) H Microbiology Microbiology Date/Time Source Procedure Growth Status 10/20/24 09:35 Blood Blood Culture - Final NO GROWTH AFTER 5 DAYS OF INCUBATION. Complete 10/15/24 13:47 Nose MRSA Screen - Final Complete 10/13/24 22:00 Voided Urine Urine Culture - Final Complete Labs and/or images reviewed: Labs reviewed by me, Image(s) reviewed by me Assessment/Plan Assessment/Plan Septic shock with elevated white count altered mental status: Bacteremia with MSSA, ID consult by Dr. Phong Richmond appreciated, patient on vancomycin Syncope possibly secondary to sepsis: CT head negative, chest x-ray negative, C- spine CT negative, echocardiogram 55 percent ejection fraction, carotid ultrasound negative, Neurology consult appreciated EEG normal, Cardiology consult by Dr. Diaz appreciated, no further cardiac workup Non STEMI type 2 secondary to sepsis, echo 10/14/2024 shows 55 % ejection fraction Acute kidney injury hemodynamically mediated; multifactorial, BUN creatinine 44 and 2.61 at the time of admission, now worsening 68/6.94, closely following, patient received hemodialysis on 10/16/2024, bicarb drip discontinued Lasix continued Left foot infection with MSSA: Continue nafcillin Acute metabolic encephalopathy Elevated D-dimer 5.50: DVT ruled out , PE ruled out Chronic Left foot infection Consult for Dr. Watts appreciated, MRI left foot shows no osteomyelitis of the 1st metatarsal stump or abscess History of left 1st toe amputation Left knee x-ray negative Chronic calcaneus fracture right foot Hepatomegaly Hypertension Obstructive Sleep apnea: CPAP Uncontrolled diabetes: Insulin sliding scale Hypercholesterolemia Hypothyroidism History of CVA Chronic calcaneal fracture right foot History of coronary artery disease Diabetic medial left foot ulcer: Wound consult, wound cultures growing MSSA on nafcillin Right IJ dialysis cath in place Moderate malnutrition Pain management: On Dilaudid IV Time spent 65 minutes Advanced care planning 20 minutes Condition guarded Conjunctivitis left eye gentamicin eyedrops Repeat blood cultures 10/20/2024 negative Plan discussed with: Patient My Orders Orders - ROWENA MEREDITH MD Procedure Category Date Status Time Hydromorphone PHA 10/26/24 In Process Injection (Dilaudid 16:30 Date of Service: Oct 27, 2024 Billing Provider: ROWENA MEREDITH MD Common Visit Codes: [id number] CARE 30-74 MIN ROWENA MEREDITH MD Oct 27, 2024 09:49
--- NOTE | 2024-10-27 11:41 | DVHPN2 ---
Progress Note Date Seen: Oct 27, 2024 Medical Necessity Reason Pt with a Central, PICC or Fol: Yes The following are medically ne: [place] Catheter Subjective Patient reports: No new complaints Other Systems: Patient seen and examined by myself today in follow-up Patient examined hemodialysis, blood pressure stable Objective vital signs Vital Sign Date Time Temp Pulse Resp B/P (MAP) Pulse Ox O2 Delivery O2 Flow Rate FiO2 10/27/24 08:49 98.4 88 20 122/62 (82) 94 98.4 10/26/24 20:00 Oxymizer 5 N/A Total Intake and Output 10/26/24 10/26/24 10/27/24 15:00 23:00 07:00 Intake Total 800 ml 400 ml Output Total 1250 ml 2000 ml Balance -450 ml -1600 ml medications Current Medications Medications Dose Ordered Sig/Olinda Route Start Time Stop Time Status Last Admin Dose Admin Vancomycin HCl 0 ml @ 0 mls/hr UD IV 10/13/24 23:30 Cancel Atorvastatin Calcium 40 mg HS PO 10/14/24 22:00 10/26/24 21:29 40 MG Amlodipine Besylate 5 mg DAILY PO 10/14/24 10:00 10/26/24 09:58 5 MG Diagnostic Test (Pha) 1 strip Q6HR 10/14/24 00:00 10/27/24 05:52 1 STRIP Insulin Human Regular Q6HR SC 10/14/24 00:00 10/27/24 06:01 6 UNITS Dextrose 50 ml UD PRN IV 10/13/24 23:30 Ondansetron HCl 4 mg Q4HP PRN IV 10/13/24 23:30 10/27/24 06:40 4 MG Acetaminophen 650 mg Q6HP PRN PO 10/13/24 23:30 10/26/24 04:21 650 MG Nitroglycerin 0.4 mg Q5MINP PRN SL 10/13/24 23:30 Morphine Sulfate 2 mg Q30M PRN IV 10/13/24 23:30 Hold Aspirin 81 mg DAILY PO 10/15/24 10:00 10/25/24 09:06 81 MG Heparin Sodium (Porcine) 5,000 units Q12HR SC 10/15/24 10:00 10/25/24 21:59 5,000 UNITS Furosemide 80 mg BIDD IV 10/16/24 07:30 10/27/24 05:52 80 MG Epoetin Bran-epbx 8,000 unit TUTHSA@2100 SC 10/21/24 19:45 10/23/24 20:36 8,000 UNIT Vancomycin HCl 0 ml @ 0 mls/hr UD IV 10/22/24 21:30 Sodium Chloride 10 ml QSHIFT@10,22 IV 10/24/24 22:00 10/26/24 21:36 10 ML Levofloxacin/ Dextrose 100 ml @ 100 mls/hr Q48H IV 10/24/24 20:45 UNV Acetaminophen/ Hydrocodone Bitart 1 tab Q4HR PO 10/25/24 09:30 10/27/24 04:04 1 TAB Gentamicin Sulfate 1 drop Q4HR LEFTEYE 10/25/24 10:00 10/27/24 05:42 1 DROP Cefpodoxime Proxetil 200 mg BID PO 10/25/24 22:00 UNV Cefpodoxime Proxetil 200 mg DAILY PO 10/25/24 21:00 10/26/24 10:08 200 MG Dopamine HCl/ Dextrose 250 ml @ 9.825 mls/ hr Q24H IV 10/26/24 13:00 10/26/24 15:01 9.825 MLS/HR Hydromorphone HCl 2 mg Q4HPRN PRN IV 10/26/24 16:30 10/27/24 06:42 2 MG Examination: LUNGS:Normal, CVS:Normal, MSK:Normal laboratory and microbiology Laboratory Tests 10/27/24 05:40 Test 10/27/24 05:40 Range/Units Serum Glucose 275 H 74-106 mg/dL Microbiology Date/Time Source Procedure Growth Status 10/20/24 09:35 Blood Blood Culture - Final NO GROWTH AFTER 5 DAYS OF INCUBATION. Complete 10/15/24 13:47 Nose MRSA Screen - Final Complete 10/13/24 22:00 Voided Urine Urine Culture - Final Complete Problem List/Assessment/Plan Problem List/Assessment/Plan Acute kidney injury superimposed Chronic Kidney Disease secondary hemodynamic mediated, FeNa <1% requiring initiation of hemodialysis MSSA bacteremia Urinary tract infection Syncope Obstructive sleep apnea Hypertension Hyponatremia due to water retention Recommendations Continue with UF to 3 L as tolerated Epogen 41474 IV post hemodialysis Increased urine output Fluid restrictions IV antibiotics Continue low-dose dopamine Low-dose dopamine Renal diet Blood pressure control Closely monitor renal function for early renal recovery Plan discussed with: Patient My Orders My Orders Orders - KHRIS SMITH MD Procedure Category Date Status Time Dopamine 1600mcg/Ml PHA 10/26/24 In Process D5W 13:00 Hemodialysis Orders ORDERS 10/27/24 Transmitted 07:00 Maintain Fluid TYLOR 10/26/24 In Process Restrictions 15:00 Renal Specific DIET 10/26/24 Transmitted Diet(Renal) Dinner Dietary Evaluation Review Comments: 1. Consider adding nephrovite 2. Consider adding renal to diet restrictions 3. Consider adding Nepro shake if pt with low PO intake Expected Outcomes/Goals: 1. Pt will consume >75% of estimated needs within 3-5 days KHRIS SMITH MD Oct 27, 2024 11:41
[2024-10-27] MEDS ORDERED: VANCOMYCIN 500mg/100mL 100 ML IV ONE (14:00)
[2024-10-27] MEDS: VANCOMYCIN 500mg/100mL 100 ML IV ONE (22:00)
[2024-10-27] MEDS: EPOETIN ALFA-EPBX 4,000 UNIT/ML VIAL SC ONE (22:05)
--- NOTE | 2024-10-27 22:29 | DVHPN2 ---
Consult Progress Note Date Seen: Oct 26, 2024 Subjective Patient reports: Feels better (leukocytosis improving no fevers) Objective vital signs Vital Sign Date Time Temp Pulse Resp B/P (MAP) Pulse Ox O2 Delivery O2 Flow Rate FiO2 10/27/24 21:43 75 19 151/79 10/27/24 21:00 98.0 97 98.0 10/27/24 08:00 Oxymizer 5 N/A Total Intake and Output 10/26/24 10/26/24 10/27/24 15:00 23:00 07:00 Intake Total 800 ml 400 ml Output Total 1250 ml 2000 ml Balance -450 ml -1600 ml medications Current Medications Medications Dose Ordered Sig/Olinda Route Start Time Stop Time Status Last Admin Dose Admin Vancomycin HCl 0 ml @ 0 mls/hr UD IV 10/13/24 23:30 Cancel Atorvastatin Calcium 40 mg HS PO 10/14/24 22:00 10/27/24 21:47 40 MG Amlodipine Besylate 5 mg DAILY PO 10/14/24 10:00 10/27/24 11:39 5 MG Diagnostic Test (Pha) 1 strip Q6HR 10/14/24 00:00 10/27/24 18:02 1 STRIP Insulin Human Regular Q6HR SC 10/14/24 00:00 10/27/24 18:02 8 UNITS Dextrose 50 ml UD PRN IV 10/13/24 23:30 Ondansetron HCl 4 mg Q4HP PRN IV 10/13/24 23:30 10/27/24 06:40 4 MG Acetaminophen 650 mg Q6HP PRN PO 10/13/24 23:30 10/26/24 04:21 650 MG Nitroglycerin 0.4 mg Q5MINP PRN SL 10/13/24 23:30 Morphine Sulfate 2 mg Q30M PRN IV 10/13/24 23:30 Hold Aspirin 81 mg DAILY PO 10/15/24 10:00 10/27/24 11:39 81 MG Heparin Sodium (Porcine) 5,000 units Q12HR SC 10/15/24 10:00 10/27/24 21:54 5,000 UNITS Furosemide 80 mg BIDD IV 10/16/24 07:30 10/27/24 05:52 80 MG Epoetin Bran-epbx 8,000 unit TUTHSA@2100 SC 10/21/24 19:45 10/23/24 20:36 8,000 UNIT Vancomycin HCl 0 ml @ 0 mls/hr UD IV 10/22/24 21:30 Sodium Chloride 10 ml QSHIFT@10,22 IV 10/24/24 22:00 10/27/24 22:02 10 ML Levofloxacin/ Dextrose 100 ml @ 100 mls/hr Q48H IV 10/24/24 20:45 UNV Acetaminophen/ Hydrocodone Bitart 1 tab Q4HR PO 10/25/24 09:30 10/27/24 18:22 1 TAB Gentamicin Sulfate 1 drop Q4HR LEFTEYE 10/25/24 10:00 10/27/24 22:02 1 DROP Cefpodoxime Proxetil 200 mg BID PO 10/25/24 22:00 UNV Cefpodoxime Proxetil 200 mg DAILY PO 10/25/24 21:00 10/27/24 11:44 200 MG Dopamine HCl/ Dextrose 250 ml @ 9.825 mls/ hr Q24H IV 10/26/24 13:00 10/27/24 16:00 9.825 MLS/HR Hydromorphone HCl 2 mg Q4HPRN PRN IV 10/26/24 16:30 10/27/24 21:43 2 MG PHYSICAL EXAM: - GENERAL: Alert and oriented x 3. No acute distress. Well-nourished. ? - EYES: EOMI. Anicteric. ?- HENT: Moist mucous membranes. No scleral icterus. No cervical lymphadenopathy. ?- LUNGS: Clear to auscultation bilaterally. No accessory muscle use.? - CARDIOVASCULAR: Regular rate and rhythm. No murmur. No JVD.? - ABDOMEN: Soft, non-tender and non-distended. No palpable masses.? - EXTREMITIES: No edema. Non-tender.?SKIN: No rashes or lesions. Warm. ? - NEUROLOGIC: No focal neurological deficits. CN II-XII grossly intact, but not individually tested.? - PSYCHIATRIC: Cooperative. Appropriate mood and affect. laboratory and microbiology Laboratory Tests 10/27/24 05:40 Test 10/27/24 05:40 Range/Units Serum Glucose 275 H 74-106 mg/dL Problem List/Assessment/Plan Problem List/Assessment/Plan ID Problem List: - MSSA bacteremia - Right foot cellulitis - Bilateral non-healing diabetic foot ulcers - Uncontrolled diabetes mellitus - Acute on chronic kidney disease - Morbid obesity - Dyslipidemia - Hypertension - History of stroke - Hypoxia - Severe sepsis - Lactic acidosis - Altered mental status - Hepatic steatosis - Possible need for further debridement Assessment This is a 69-year-old male with a past medical history of uncontrolled diabetes mellitus, hypertension, chronic kidney disease (baseline creatinine ~2), dyslipidemia, stroke, thyroid disease, morbid obesity, and multiple chronic non- healing diabetic foot ulcers on both feet. He has undergone prior amputations of the left and right great toes. The patient presents with an unwitnessed syncopal episode in the bathroom lasting approximately 4 hours. He denies any pre- syncopal symptoms, shortness of breath, fevers, or chills prior to the episode. On admission, the patient was febrile to 102.8F and hypoxic, requiring supplemental oxygen. Examination revealed right lower extremity cellulitis extending from the ankle to the great toe with drainage from a 1.1 cm ulcer. Laboratory findings include significant leukocytosis (WBC 36), anemia (Hb 12.2), worsening renal function (creatinine increased from baseline 2.61 to 2.7, BUN elevated to 89-92), hyperglycemia (glucose 279), and elevated lactic acid (4.5). Blood cultures grew MSSA on the 14th, and wound cultures from the right great toe grew MSSA on the 13th. Imaging studies showed right maxillary sinus opacification concerning for acute sinusitis. Left foot CT demonstrated mild soft tissue swelling without abscess or osteomyelitis. Right foot MRI indicated soft tissue inflammatory changes consistent with possible cellulitis but no abscess or osteomyelitis. The patient developed progressive hypoxia requiring up to 10 liters of supplemental oxygen. A V/Q scan ruled out pulmonary embolism. He underwent dialysis for worsening renal failure and volume overload, with placement of a dialysis catheter. 10/20:Blood cultures negative for 24 hours , not having an intolerance to nepsillin 10/21: chest x-ray shows pulmonary vascular congestion that is unchanged , on 10 liters nasal canula, blood cultures have no growth to date after 48 hours 10/22: White count is going up despite being on appropriate antibiotic therapy , possibly rellated to larger bacteria than anticipated or patients obesity with a BMI of 41. 10/24: white count is up to 18.8 despite switching antibiotics , at this point suspect patient has suppresed bacteria that has not been caught on cultures 10/25: Blood cultures remain negative , white count is now 14.7 Plan: - continue oral cefpodoxime 200 milligrams daily for 4 weeks - dose of vancomycin has been therapeutic - Continue vancomycin Iv for 4 weeks to be given with dialysis at dialysis center , 1.5g MWF - If white count continues to go up or patient demonstrates other signs of sepsis recommend repeating blood cultures , hold off for now - have dialysis catheter placed by radiology - Renal Function: - Monitor renal function closely. - Avoid nephrotoxic medications. - prior to placement of permanent dialysis catheter will need to ensure clearance of bacteremia - Infectious Disease and Debridement: - defer to podiatry for potential further debridement of the right foot infection. - If bacteremia persists, consider transesophageal echocardiogram (VANDANA) to rule out endocarditis. - will fu on blood cultures - Diabetes Management: - Optimize glycemic control with insulin therapy. keep BG<180 - Monitor blood glucose levels closely. - Respiratory Support: - Continue supplemental oxygen therapy. - Monitor oxygen saturation and adjust oxygen delivery as needed. - Sepsis Management: - Monitor lactic acid levels. - Provide appropriate supportive care for severe sepsis. Wound Care: - Continue wound care for bilateral foot ulcers. - Coordinate with wound care specialists and home health services. Other Considerations: - Address morbid obesity with nutritional support and weight management strategies. - Monitor liver function tests due to hepatic steatosis. Plan discussed with: Patient Dietary Evaluation Review Comments: 1. Consider adding nephrovite 2. Consider adding renal to diet restrictions 3. Consider adding Nepro shake if pt with low PO intake Expected Outcomes/Goals: 1. Pt will consume >75% of estimated needs within 3-5 days KINGS ALVAREZ MD Oct 27, 2024 22:29
[2024-10-28] VITALS (8 sets, daily range): BP systolic 102–164; BP diastolic 62–74; PULSE 72–80; RESP 18–20; TEMP 97.3–98.3; O2SAT 92–96
[2024-10-28] MEDS: VANCOMYCIN 500mg/100mL 100 ML IV ONE (02:47)
[2024-10-28 06:06] LABS: Monocytes # (auto) 0.8 10 ^3/uL (0-1.3); Neutrophils # (auto) 8.8 10 ^3/uL (1.6-8.6); Red Blood Cells 3.68 10^6/uL (4.5-5.90)
[2024-10-28 06:10] LABS: Basophils # (auto) 0.1 10 ^3/uL (0-0.2); Basophils % (auto) 0.5 % (0.0-2.0); Eosinophils # (auto) 0.4 10 ^3/uL (0-0.8); Eosinophils % (auto) 3.1 % (0.0-7.0); Hematocrit 29.2 % (41.0-53.0); Hemoglobin 9.7 g/dL (13.5-17.5); Lymphocytes # (auto) 1.6 10 ^3/uL (0.4-5.4); Lymphocytes % (auto) 13.5 % (10.0-50.0); Mean Corpuscular Hemoglobin 26.4 pg (28.0-32.0); Mean Corpuscular Hgb Conc. 33.2 g/dL (32.0-36.0); Mean Corpuscular Volume 79.3 fL (80.0-100.0); Neutrophils % (auto) 75.9 % (37.0-80.0); Platelet Count (auto) 369 10^3/uL (140-450); Red Cell Distribution Width 17.6 % (11.8-14.3); White Blood Cell 11.6 10^3/uL (4.4-10.8)
[2024-10-28 06:18] LABS: Calcium 9.5 mg/dL (8.7-10.4); Potassium 3.9 mmol/L (3.5-5.1)
[2024-10-28 06:19] LABS: Anion Gap 8 (5-15); Carbon Dioxide 28 mmol/L (20-31)
[2024-10-28 06:24] LABS: BUN/Creatinine Ratio 9.4 (10.0-20.0)
[2024-10-28 06:25] LABS: Blood Urea Nitrogen 49 mg/dL (9-23); Chloride 96 mmol/L (98-107); Glucose 229 mg/dL (74-106); Sodium 132 mmol/L (136-145)
--- NOTE | 2024-10-28 08:51 | DVHPN2 ---
Reviewed: Care Plan, H&P, Labs, Medications, Previous Orders, Radiology Changes from previous H/P or p: No Changes Objective Vitals Vital Signs Date Time Temp Pulse Resp B/P (MAP) Pulse Ox O2 Delivery O2 Flow Rate FiO2 10/28/24 06:00 127/56 10/28/24 05:00 98.2 72 19 96 98.2 10/27/24 20:00 Oxymizer 5 N/A Intake/Output Intake and Output 10/28/24 07:00 Intake Total 2289.65 ml Output Total 2400 ml Balance -110.35 ml Intake Oral 2020 ml IV Total 269.65 ml Output Urine Total 2400 ml Medications Current Medications Medications Dose Ordered Sig/Olinda Route Start Time Stop Time Status Last Admin Dose Admin Vancomycin HCl 0 ml @ 0 mls/hr UD IV 10/13/24 23:30 Cancel Atorvastatin Calcium 40 mg HS PO 10/14/24 22:00 10/27/24 21:47 40 MG Amlodipine Besylate 5 mg DAILY PO 10/14/24 10:00 10/27/24 11:39 5 MG Diagnostic Test (Pha) 1 strip Q6HR 10/14/24 00:00 10/28/24 06:00 1 STRIP Insulin Human Regular Q6HR SC 10/14/24 00:00 10/28/24 06:13 4 UNITS Dextrose 50 ml UD PRN IV 10/13/24 23:30 Ondansetron HCl 4 mg Q4HP PRN IV 10/13/24 23:30 10/27/24 06:40 4 MG Acetaminophen 650 mg Q6HP PRN PO 10/13/24 23:30 10/26/24 04:21 650 MG Nitroglycerin 0.4 mg Q5MINP PRN SL 10/13/24 23:30 Morphine Sulfate 2 mg Q30M PRN IV 10/13/24 23:30 Hold Aspirin 81 mg DAILY PO 10/15/24 10:00 10/27/24 11:39 81 MG Heparin Sodium (Porcine) 5,000 units Q12HR SC 10/15/24 10:00 10/27/24 21:54 5,000 UNITS Furosemide 80 mg BIDD IV 10/16/24 07:30 10/28/24 06:00 80 MG Epoetin Bran-epbx 8,000 unit TUTHSA@2100 SC 10/21/24 19:45 11/23/24 20:36 8,000 UNIT Vancomycin HCl 0 ml @ 0 mls/hr UD IV 10/22/24 21:30 Sodium Chloride 10 ml QSHIFT@10,22 IV 10/24/24 22:00 10/27/24 22:02 10 ML Levofloxacin/ Dextrose 100 ml @ 100 mls/hr Q48H IV 10/24/24 20:45 UNV Acetaminophen/ Hydrocodone Bitart 1 tab Q4HR PO 10/25/24 09:30 10/28/24 05:55 1 TAB Gentamicin Sulfate 1 drop Q4HR LEFTEYE 10/25/24 10:00 10/28/24 05:55 1 DROP Cefpodoxime Proxetil 200 mg BID PO 10/25/24 22:00 UNV Cefpodoxime Proxetil 200 mg DAILY PO 10/25/24 21:00 10/27/24 11:44 200 MG Dopamine HCl/ Dextrose 250 ml @ 9.825 mls/ hr Q24H IV 10/26/24 13:00 10/27/24 16:00 9.825 MLS/HR Hydromorphone HCl 2 mg Q4HPRN PRN IV 10/26/24 16:30 10/28/24 02:46 2 MG Laboratory Results Laboratory Tests 10/28/24 05:11 Chemistry Test 10/28/24 05:11 Calcium Level 9.5 mg/dL (8.7-10.4) Urinalysis Test 10/13/24 22:00 10/14/24 17:27 Urine Color Yellow (Yellow) Urine Clarity Turbid (Clear) H Urine pH 6.0 (5.0-9.0) Urine Specific [place] 1.020 (1.001-1.035) Urine Protein 3+ (Negative) H Urine Ketones Negative (Negative) Urine Blood 3+ /uL (Negative) H Urine Nitrite Negative (Negative) Urine Bilirubin Negative (Negative) Urine Urobilinogen Normal mg/dL (Negative) Urine Leukocyte Esterase Negative /uL (Negative) Urine RBC 2 /hpf (0 - 3) Urine WBC 4 /hpf (0 - 3) Urine Squamous Epithelial Cells Few /hpf (<5) Urine Amorphous Crystals Few /hpf (None Seen) Urine Bacteria Mod /hpf (None Seen) H Urine Glucose 4+ mg/dL (Normal) H Urine Creatinine 77.85 mg/dL (30.0-125.0) Urine Sodium 24 mmol/L (40-220) L Urine Total Protein 647.5 mg/dL (1-14) H Microbiology Microbiology Date/Time Source Procedure Growth Status 10/20/24 09:35 Blood Blood Culture - Final NO GROWTH AFTER 5 DAYS OF INCUBATION. Complete 10/15/24 13:47 Nose MRSA Screen - Final Complete 10/13/24 22:00 Voided Urine Urine Culture - Final Complete Labs and/or images reviewed: Labs reviewed by me, Image(s) reviewed by me Assessment/Plan Assessment/Plan Septic shock with elevated white count altered mental status: Bacteremia with MSSA, ID consult by Dr. Phong Richmond appreciated, patient on vancomycin Syncope possibly secondary to sepsis: CT head negative, chest x-ray negative, C- spine CT negative, echocardiogram 55 percent ejection fraction, carotid ultrasound negative, Neurology consult appreciated EEG normal, Cardiology consult by Dr. Diaz appreciated, no further cardiac workup Non STEMI type 2 secondary to sepsis, echo 10/14/2024 shows 55 % ejection fraction Acute kidney injury hemodynamically mediated; multifactorial, BUN creatinine 44 and 2.61 at the time of admission, now worsening 68/6.94, closely following, patient received hemodialysis on 10/16/2024, bicarb drip discontinued Lasix continued Left foot infection with MSSA: Continue nafcillin Acute metabolic encephalopathy Elevated D-dimer 5.50: DVT ruled out , PE ruled out Chronic Left foot infection Consult for Dr. Watts appreciated, MRI left foot shows no osteomyelitis of the 1st metatarsal stump or abscess History of left 1st toe amputation Left knee x-ray negative Chronic calcaneus fracture right foot Hepatomegaly Hypertension Obstructive Sleep apnea: CPAP Uncontrolled diabetes: Insulin sliding scale Hypercholesterolemia Hypothyroidism History of CVA Chronic calcaneal fracture right foot History of coronary artery disease Diabetic medial left foot ulcer: Wound consult, wound cultures growing MSSA on nafcillin Right IJ dialysis cath in place Moderate malnutrition Pain management: On Dilaudid IV Time spent 65 minutes Advanced care planning 20 minutes Condition guarded Conjunctivitis left eye gentamicin eyedrops Repeat blood cultures 10/20/2024 negative Plan discussed with: Patient My Orders Orders - ROWENA MEREDITH MD Procedure Category Date Status Time Communication Order ORDERS 10/27/24 Transmitted 14:00 Date of Service: Oct 28, 2024 Billing Provider: ROWENA MEREDITH MD Common Visit Codes: [id number] CARE 30-74 MIN ROWENA MEREDITH MD Oct 28, 2024 08:51
[2024-10-28] MEDS: HYDROmorphone HCL 2 MG/ML VL/or syr IV SCH (11:34)
--- NOTE | 2024-10-28 22:57 | DVHPN2 ---
Consult Progress Note Date Seen: Oct 28, 2024 Subjective Patient reports: Feels better (hypoxemia and volume overload improved) Objective vital signs Vital Sign Date Time Temp Pulse Resp B/P (MAP) Pulse Ox O2 Delivery O2 Flow Rate FiO2 10/28/24 22:06 75 19 110/70 10/28/24 20:00 Oxymizer 5 N/A 10/28/24 17:00 98.0 96 98.0 Total Intake and Output 10/27/24 10/27/24 10/28/24 15:00 23:00 07:00 Intake Total 250 ml 1289.65 ml 750 ml Output Total 1750 ml 650 ml Balance 250 ml -460.35 ml 100 ml medications Current Medications Medications Dose Ordered Sig/Olinda Route Start Time Stop Time Status Last Admin Dose Admin Vancomycin HCl 0 ml @ 0 mls/hr UD IV 10/13/24 23:30 Cancel Atorvastatin Calcium 40 mg HS PO 10/14/24 22:00 10/28/24 22:10 40 MG Amlodipine Besylate 5 mg DAILY PO 10/14/24 10:00 10/28/24 11:36 5 MG Diagnostic Test (Pha) 1 strip Q6HR 10/14/24 00:00 10/28/24 18:06 1 STRIP Insulin Human Regular Q6HR SC 10/14/24 00:00 10/28/24 18:16 6 UNITS Dextrose 50 ml UD PRN IV 10/13/24 23:30 Ondansetron HCl 4 mg Q4HP PRN IV 10/13/24 23:30 10/28/24 16:58 4 MG Acetaminophen 650 mg Q6HP PRN PO 10/13/24 23:30 10/26/24 04:21 650 MG Nitroglycerin 0.4 mg Q5MINP PRN SL 10/13/24 23:30 Morphine Sulfate 2 mg Q30M PRN IV 10/13/24 23:30 Hold Aspirin 81 mg DAILY PO 10/15/24 10:00 10/28/24 11:35 81 MG Heparin Sodium (Porcine) 5,000 units Q12HR SC 10/15/24 10:00 10/28/24 22:17 5,000 UNITS Furosemide 80 mg BIDD IV 10/16/24 07:30 10/28/24 06:00 80 MG Epoetin Bran-epbx 8,000 unit TUTHSA@2100 SC 10/21/24 19:45 10/23/24 20:36 8,000 UNIT Vancomycin HCl 0 ml @ 0 mls/hr UD IV 10/22/24 21:30 Sodium Chloride 10 ml QSHIFT@10,22 IV 10/24/24 22:00 10/28/24 22:08 10 ML Levofloxacin/ Dextrose 100 ml @ 100 mls/hr Q48H IV 10/24/24 20:45 UNV Gentamicin Sulfate 1 drop Q4HR LEFTEYE 10/25/24 10:00 10/28/24 22:10 1 DROP Cefpodoxime Proxetil 200 mg BID PO 10/25/24 22:00 UNV Cefpodoxime Proxetil 200 mg DAILY PO 10/25/24 21:00 10/28/24 11:35 200 MG Dopamine HCl/ Dextrose 250 ml @ 9.825 mls/ hr Q24H IV 10/26/24 13:00 10/28/24 13:21 9.825 MLS/HR Hydromorphone HCl 2 mg Q4HR IV 10/28/24 10:00 10/28/24 22:06 2 MG Physical Exam: General: NAD Neck: Supple. No masses. HEENT: PERRL. Normal lids and conjunctiva. Moist mucous membranes. Oropharynx without lesions, exudates or excessive erythema. Normal appearance of the external aspects of the nose and ears. Heart: Regular rhythm, normal rate. No murmur. No lower extremity edema. Lungs: Normal respiratory effort. Clear to auscultation bilaterally. No wheezes. No crackles. Abdomen: Soft. Non-tender. Non-distended. No masses or abdominal hernia. Msk: No digital cyanosis. Normal strength and tone in all 4 limbs. . Skin: Warm and dry, no rashes. Lesion on right dorsal foot as described. Neuro: Alert. No facial droop or slurred speech. Extra-ocular movements intact. Sensation intact to soft touch in all 4 limbs. Psych: Appropriate mood. Full affect. Oriented to person, place, time, and situation. Lines: laboratory and microbiology Laboratory Tests 10/28/24 05:11 Test 10/28/24 05:11 Range/Units Serum Glucose 229 H 74-106 mg/dL Problem List/Assessment/Plan Problem List/Assessment/Plan ID Problem List: - MSSA bacteremia - Right foot cellulitis - Bilateral non-healing diabetic foot ulcers - Uncontrolled diabetes mellitus - Acute on chronic kidney disease - Morbid obesity - Dyslipidemia - Hypertension - History of stroke - Hypoxia - Severe sepsis - Lactic acidosis - Altered mental status - Hepatic steatosis - Possible need for further debridement Assessment This is a 69-year-old male with a past medical history of uncontrolled diabetes mellitus, hypertension, chronic kidney disease (baseline creatinine ~2), dyslipidemia, stroke, thyroid disease, morbid obesity, and multiple chronic non- healing diabetic foot ulcers on both feet. He has undergone prior amputations of the left and right great toes. The patient presents with an unwitnessed syncopal episode in the bathroom lasting approximately 4 hours. He denies any pre- syncopal symptoms, shortness of breath, fevers, or chills prior to the episode. On admission, the patient was febrile to 102.8F and hypoxic, requiring supplemental oxygen. Examination revealed right lower extremity cellulitis extending from the ankle to the great toe with drainage from a 1.1 cm ulcer. Laboratory findings include significant leukocytosis (WBC 36), anemia (Hb 12.2), worsening renal function (creatinine increased from baseline 2.61 to 2.7, BUN elevated to 89-92), hyperglycemia (glucose 279), and elevated lactic acid (4.5). Blood cultures grew MSSA on the 14th, and wound cultures from the right great toe grew MSSA on the 13th. Imaging studies showed right maxillary sinus opacification concerning for acute sinusitis. Left foot CT demonstrated mild soft tissue swelling without abscess or osteomyelitis. Right foot MRI indicated soft tissue inflammatory changes consistent with possible cellulitis but no abscess or osteomyelitis. The patient developed progressive hypoxia requiring up to 10 liters of supplemental oxygen. A V/Q scan ruled out pulmonary embolism. He underwent dialysis for worsening renal failure and volume overload, with placement of a dialysis catheter. 10/20:Blood cultures negative for 24 hours , not having an intolerance to nepsillin 10/21: chest x-ray shows pulmonary vascular congestion that is unchanged , on 10 liters nasal canula, blood cultures have no growth to date after 48 hours 10/22: White count is going up despite being on appropriate antibiotic therapy , possibly rellated to larger bacteria than anticipated or patients obesity with a BMI of 41. 10/24: white count is up to 18.8 despite switching antibiotics , at this point suspect patient has suppresed bacteria that has not been caught on cultures 10/25: Blood cultures remain negative , white count is now 14.7 10/28: on 3lNC Plan: - continue oral cefpodoxime 200 milligrams daily for 4 weeks - dose of vancomycin has been therapeutic - Continue vancomycin Iv for 4 weeks to be given with dialysis at dialysis center , 1.5g MWF - If white count continues to go up or patient demonstrates other signs of sepsis recommend repeating blood cultures , hold off for now - have dialysis catheter placed by radiology - Renal Function: - Monitor renal function closely. - Avoid nephrotoxic medications. - prior to placement of permanent dialysis catheter will need to ensure clearance of bacteremia - Infectious Disease and Debridement: - defer to podiatry for potential further debridement of the right foot infection. - If bacteremia persists, consider transesophageal echocardiogram (VANDANA) to rule out endocarditis. - will fu on blood cultures - Diabetes Management: - Optimize glycemic control with insulin therapy. keep BG<180 - Monitor blood glucose levels closely. - Respiratory Support: - Continue supplemental oxygen therapy. - Monitor oxygen saturation and adjust oxygen delivery as needed. - Sepsis Management: - Monitor lactic acid levels. - Provide appropriate supportive care for severe sepsis. Wound Care: - Continue wound care for bilateral foot ulcers. - Coordinate with wound care specialists and home health services. Other Considerations: - Address morbid obesity with nutritional support and weight management strategies. - Monitor liver function tests due to hepatic steatosis. Plan discussed with: Patient Dietary Evaluation Review Comments: 1. Consider adding nephrovite 2. Consider adding renal to diet restrictions 3. Consider adding Nepro shake if pt with low PO intake Expected Outcomes/Goals: 1. Pt will consume >75% of estimated needs within 3-5 days KINGS ALVAREZ MD Oct 28, 2024 22:57
[2024-10-29] VITALS (9 sets, daily range): BP systolic 103–143; BP diastolic 52–81; PULSE 67–86; RESP 16–20; TEMP 97.9–98.5; O2SAT 93–99
--- NOTE | 2024-10-29 07:58 | DVHPN2 ---
Reviewed: Care Plan, H&P, Labs, Medications, Previous Orders, Radiology Changes from previous H/P or p: No Changes Objective Vitals Vital Signs Date Time Temp Pulse Resp B/P (MAP) Pulse Ox O2 Delivery O2 Flow Rate FiO2 10/29/24 06:39 125/75 10/29/24 06:29 75 18 10/29/24 05:00 98.5 94 98.5 10/28/24 20:00 Oxymizer 5 N/A Intake/Output Intake and Output 10/29/24 07:00 Intake Total 1561.5 ml Output Total 2300 ml Balance -738.5 ml Intake Oral 1276 ml IV Total 285.5 ml Output Urine Total 2300 ml Medications Current Medications Medications Dose Ordered Sig/Olinda Route Start Time Stop Time Status Last Admin Dose Admin Vancomycin HCl 0 ml @ 0 mls/hr UD IV 10/13/24 23:30 Cancel Atorvastatin Calcium 40 mg HS PO 10/14/24 22:00 10/28/24 22:10 40 MG Amlodipine Besylate 5 mg DAILY PO 10/14/24 10:00 10/28/24 11:36 5 MG Diagnostic Test (Pha) 1 strip Q6HR 10/14/24 00:00 10/29/24 06:40 1 STRIP Insulin Human Regular Q6HR SC 10/14/24 00:00 10/29/24 06:56 3 UNITS Dextrose 50 ml UD PRN IV 10/13/24 23:30 Ondansetron HCl 4 mg Q4HP PRN IV 10/13/24 23:30 10/28/24 23:53 4 MG Acetaminophen 650 mg Q6HP PRN PO 10/13/24 23:30 10/26/24 04:21 650 MG Nitroglycerin 0.4 mg Q5MINP PRN SL 10/13/24 23:30 Morphine Sulfate 2 mg Q30M PRN IV 10/13/24 23:30 Hold Aspirin 81 mg DAILY PO 10/15/24 10:00 10/28/24 11:35 81 MG Heparin Sodium (Porcine) 5,000 units Q12HR SC 10/15/24 10:00 10/28/24 22:17 5,000 UNITS Furosemide 80 mg BIDD IV 10/16/24 07:30 10/29/24 06:39 80 MG Epoetin Bran-epbx 8,000 unit TUTHSA@2100 MD 10/21/24 19:45 10/23/24 20:36 8,000 UNIT Vancomycin HCl 0 ml @ 0 mls/hr UD IV 10/22/24 21:30 Sodium Chloride 10 ml QSHIFT@10,22 IV 10/24/24 22:00 10/28/24 22:08 10 ML Levofloxacin/ Dextrose 100 ml @ 100 mls/hr Q48H IV 10/24/24 20:45 UNV Gentamicin Sulfate 1 drop Q4HR LEFTEYE 10/25/24 10:00 10/29/24 06:51 1 DROP Cefpodoxime Proxetil 200 mg BID PO 10/25/24 22:00 UNV Cefpodoxime Proxetil 200 mg DAILY PO 10/25/24 21:00 10/28/24 11:35 200 MG Dopamine HCl/ Dextrose 250 ml @ 9.825 mls/ hr Q24H IV 10/26/24 13:00 10/28/24 13:21 9.825 MLS/HR Hydromorphone HCl 2 mg Q4HR IV 10/28/24 10:00 10/29/24 06:29 2 MG Laboratory Results Laboratory Tests 10/28/24 05:11 Urinalysis Test 10/13/24 22:00 10/14/24 17:27 Urine Color Yellow (Yellow) Urine Clarity Turbid (Clear) H Urine pH 6.0 (5.0-9.0) Urine Specific Capulin 1.020 (1.001-1.035) Urine Protein 3+ (Negative) H Urine Ketones Negative (Negative) Urine Blood 3+ /uL (Negative) H Urine Nitrite Negative (Negative) Urine Bilirubin Negative (Negative) Urine Urobilinogen Normal mg/dL (Negative) Urine Leukocyte Esterase Negative /uL (Negative) Urine RBC 2 /hpf (0 - 3) Urine WBC 4 /hpf (0 - 3) Urine Squamous Epithelial Cells Few /hpf (<5) Urine Amorphous Crystals Few /hpf (None Seen) Urine Bacteria Mod /hpf (None Seen) H Urine Glucose 4+ mg/dL (Normal) H Urine Creatinine 77.85 mg/dL (30.0-125.0) Urine Sodium 24 mmol/L (40-220) L Urine Total Protein 647.5 mg/dL (1-14) H Microbiology Microbiology Date/Time Source Procedure Growth Status 10/20/24 09:35 Blood Blood Culture - Final NO GROWTH AFTER 5 DAYS OF INCUBATION. Complete 10/15/24 13:47 Nose MRSA Screen - Final Complete 10/13/24 22:00 Voided Urine Urine Culture - Final Complete Labs and/or images reviewed: Labs reviewed by me, Image(s) reviewed by me Assessment/Plan Assessment/Plan Septic shock with elevated white count altered mental status: Bacteremia with MSSA, ID consult by Dr. Phong Richmond appreciated, patient on vancomycin Syncope possibly secondary to sepsis: CT head negative, chest x-ray negative, C- spine CT negative, echocardiogram 55 percent ejection fraction, carotid ultrasound negative, Neurology consult appreciated EEG normal, Cardiology consult by Dr. Diaz appreciated, no further cardiac workup Non STEMI type 2 secondary to sepsis, echo 10/14/2024 shows 55 % ejection fraction Acute kidney injury hemodynamically mediated; multifactorial, BUN creatinine 44 and 2.61 at the time of admission, now worsening 68/6.94, closely following, patient received hemodialysis on 10/16/2024, bicarb drip discontinued Lasix continued Left foot infection with MSSA: Continue nafcillin Acute metabolic encephalopathy Elevated D-dimer 5.50: DVT ruled out , PE ruled out Chronic Left foot infection Consult for Dr. Watts appreciated, MRI left foot shows no osteomyelitis of the 1st metatarsal stump or abscess History of left 1st toe amputation Left knee x-ray negative Chronic calcaneus fracture right foot Hepatomegaly Hypertension Obstructive Sleep apnea: CPAP Uncontrolled diabetes: Insulin sliding scale Hypercholesterolemia Hypothyroidism History of CVA Chronic calcaneal fracture right foot History of coronary artery disease Diabetic medial left foot ulcer: Wound consult, wound cultures growing MSSA on nafcillin Right IJ dialysis cath in place Moderate malnutrition Pain management: On Dilaudid IV Time spent 65 minutes Continue current management Plan discussed with: Patient My Orders Orders - ROWENA MEREDITH MD Procedure Category Date Status Time * Braid Folder CONS 10/28/24 Transmitted Consult Hydromorphone PHA 10/28/24 In Process Injection (Dilaudid 10:00 Basic Metabolic Panel LAB 10/29/24 Verified 07:55 Basic Metabolic Panel LAB 10/30/24 Verified 05:00 Basic Metabolic Panel LAB 10/31/24 Verified 05:00 Basic Metabolic Panel LAB 11/01/24 Verified 05:00 Basic Metabolic Panel LAB 11/02/24 Verified 05:00 Basic Metabolic Panel LAB 11/03/24 Verified 05:00 Date of Service: Oct 29, 2024 Billing Provider: ROWENA MEREDITH MD Common Visit Codes: [id number] INP/OBS CARE(HIGH) ROWENA MEREDITH MD Oct 29, 2024 07:58
[2024-10-29 08:18] LABS: Potassium 3.9 mmol/L (3.5-5.1)
[2024-10-29 08:19] LABS: Anion Gap 10 (5-15); Calcium 9.6 mg/dL (8.7-10.4); Carbon Dioxide 26 mmol/L (20-31)
[2024-10-29 08:24] LABS: BUN/Creatinine Ratio 8.9 (10.0-20.0)
[2024-10-29 08:32] LABS: Blood Urea Nitrogen 38 mg/dL (9-23); Chloride 95 mmol/L (98-107); Glucose 195 mg/dL (74-106); Sodium 131 mmol/L (136-145)
[2024-10-29] MEDS ORDERED: METOPROLOL TARTRATE 1MG/1ML-5ML VIAL IV PRN (15:00)
[2024-10-29] MEDS: SODIUM CHLORIDE 0.9% 500 ML IV ONE (15:55)
[2024-10-29] MEDS: VANCOMYCIN 500mg/100mL 100 ML IV ONE (17:59)
--- NOTE | 2024-10-29 21:57 | DVHPN2 ---
Progress Note Date Seen: Oct 28, 2024 Medical Necessity Reason Pt with a Central, PICC or Fol: Yes The following are medically ne: [place] Catheter Subjective Patient reports: No new complaints Review of Systems: HEENT:Normal, CVS:Normal, RESPIRATORY:Normal, GI:Normal, :Normal, MSK:Normal, NEURO:Normal Objective vital signs Vital Sign Date Time Temp Pulse Resp B/P (MAP) Pulse Ox O2 Delivery O2 Flow Rate FiO2 10/29/24 20:00 Oxymizer 5 N/A 10/29/24 20:00 69 10/29/24 18:30 16 108/76 10/29/24 17:00 98.1 99 98.1 Total Intake and Output 10/28/24 10/28/24 10/29/24 15:00 23:00 07:00 Intake Total 548 ml 813.5 ml 200 ml Output Total 1300 ml 1000 ml Balance 548 ml -486.5 ml -800 ml medications Current Medications Medications Dose Ordered Sig/Olinda Route Start Time Stop Time Status Last Admin Dose Admin Vancomycin HCl 0 ml @ 0 mls/hr UD IV 10/13/24 23:30 Cancel Atorvastatin Calcium 40 mg HS PO 10/14/24 22:00 10/28/24 22:10 40 MG Amlodipine Besylate 5 mg DAILY PO 10/14/24 10:00 10/29/24 10:32 5 MG Diagnostic Test (Pha) 1 strip Q6HR 10/14/24 00:00 10/29/24 17:57 1 STRIP Insulin Human Regular Q6HR SC 10/14/24 00:00 10/29/24 18:26 6 UNITS Dextrose 50 ml UD PRN IV 10/13/24 23:30 Ondansetron HCl 4 mg Q4HP PRN IV 10/13/24 23:30 10/29/24 14:03 4 MG Acetaminophen 650 mg Q6HP PRN PO 10/13/24 23:30 10/26/24 04:21 650 MG Nitroglycerin 0.4 mg Q5MINP PRN SL 10/13/24 23:30 Morphine Sulfate 2 mg Q30M PRN IV 10/13/24 23:30 Hold Aspirin 81 mg DAILY PO 10/15/24 10:00 10/29/24 10:31 81 MG Heparin Sodium (Porcine) 5,000 units Q12HR SC 10/15/24 10:00 10/29/24 10:32 5,000 UNITS Furosemide 80 mg BIDD IV 10/16/24 07:30 10/29/24 17:58 80 MG Epoetin Brna-epbx 8,000 unit TUTHSA@2100 MN 10/21/24 19:45 10/23/24 20:36 8,000 UNIT Vancomycin HCl 0 ml @ 0 mls/hr UD IV 10/22/24 21:30 Sodium Chloride 10 ml QSHIFT@, IV 10/24/24 22:00 10/29/24 10:34 10 ML Levofloxacin/ Dextrose 100 ml @ 100 mls/hr Q48H IV 10/24/24 20:45 UNV Gentamicin Sulfate 1 drop Q4HR LEFTEYE 10/25/24 10:00 10/29/24 17:54 1 DROP Cefpodoxime Proxetil 200 mg BID PO 10/25/24 22:00 UNV Cefpodoxime Proxetil 200 mg DAILY PO 10/25/24 21:00 10/29/24 10:38 200 MG Dopamine HCl/ Dextrose 250 ml @ 9.825 mls/ hr Q24H IV 10/26/24 13:00 10/29/24 16:37 9.825 MLS/HR Hydromorphone HCl 2 mg Q4HR IV 10/28/24 10:00 10/29/24 17:56 2 MG Metoprolol Tartrate 5 mg Q6HP PRN IV 10/29/24 15:00 Examination: LUNGS:Abnormal, MSK:Abnormal, SKIN:Abnormal laboratory and microbiology Laboratory Tests 10/29/24 05:15 10/28/24 05:11 Test 10/29/24 05:15 Range/Units Serum Glucose 195 H 74-106 mg/dL Microbiology Date/Time Source Procedure Growth Status 10/20/24 09:35 Blood Blood Culture - Final NO GROWTH AFTER 5 DAYS OF INCUBATION. Complete 10/15/24 13:47 Nose MRSA Screen - Final Complete 10/13/24 22:00 Voided Urine Urine Culture - Final Complete Problem List/Assessment/Plan Problem List/Assessment/Plan Acute kidney injury likely septic ATN+(vanc +zosyn )nephrotoxicity Baseline renal function is normal Sepsis due to bacteremia; STaph Urinary tract infection Syncope Obstructive sleep apnea severe proteinuria likely due to Dm2 EF 55% grade 1 diatolic recs continue lasix iv Hd treatment today--for solute clearance and volume removal Plan discussed with: Patient Dietary Evaluation Review Comments: 1. Consider adding nephrovite 2. Consider adding renal to diet restrictions 3. Consider adding Nepro shake if pt with low PO intake Expected Outcomes/Goals: 1. Pt will consume >75% of estimated needs within 3-5 days NAOMI AKERS MD Oct 29, 2024 21:57
--- NOTE | 2024-10-29 21:57 | DVHPN2 ---
Progress Note Date Seen: Oct 29, 2024 Medical Necessity Reason Pt with a Central, PICC or Fol: Yes The following are medically ne: Medina Catheter Subjective Patient reports: No new complaints Objective vital signs Vital Sign Date Time Temp Pulse Resp B/P (MAP) Pulse Ox O2 Delivery O2 Flow Rate FiO2 10/29/24 20:00 Oxymizer 5 N/A 10/29/24 20:00 69 10/29/24 18:30 16 108/76 10/29/24 17:00 98.1 99 98.1 Total Intake and Output 10/28/24 10/28/24 10/29/24 15:00 23:00 07:00 Intake Total 548 ml 813.5 ml 200 ml Output Total 1300 ml 1000 ml Balance 548 ml -486.5 ml -800 ml medications Current Medications Medications Dose Ordered Sig/Olinda Route Start Time Stop Time Status Last Admin Dose Admin Vancomycin HCl 0 ml @ 0 mls/hr UD IV 10/13/24 23:30 Cancel Atorvastatin Calcium 40 mg HS PO 10/14/24 22:00 10/28/24 22:10 40 MG Amlodipine Besylate 5 mg DAILY PO 10/14/24 10:00 10/29/24 10:32 5 MG Diagnostic Test (Pha) 1 strip Q6HR 10/14/24 00:00 10/29/24 17:57 1 STRIP Insulin Human Regular Q6HR SC 10/14/24 00:00 10/29/24 18:26 6 UNITS Dextrose 50 ml UD PRN IV 10/13/24 23:30 Ondansetron HCl 4 mg Q4HP PRN IV 10/13/24 23:30 10/29/24 14:03 4 MG Acetaminophen 650 mg Q6HP PRN PO 10/13/24 23:30 10/26/24 04:21 650 MG Nitroglycerin 0.4 mg Q5MINP PRN SL 10/13/24 23:30 Morphine Sulfate 2 mg Q30M PRN IV 10/13/24 23:30 Hold Aspirin 81 mg DAILY PO 10/15/24 10:00 10/29/24 10:31 81 MG Heparin Sodium (Porcine) 5,000 units Q12HR SC 10/15/24 10:00 10/29/24 10:32 5,000 UNITS Furosemide 80 mg BIDD IV 10/16/24 07:30 10/29/24 17:58 80 MG Epoetin Bran-epbx 8,000 unit TUTHSA@2100 SC 10/21/24 19:45 10/23/24 20:36 8,000 UNIT Vancomycin HCl 0 ml @ 0 mls/hr UD IV 10/22/24 21:30 Sodium Chloride 10 ml QSHIFT@10,22 IV 10/24/24 22:00 10/29/24 10:34 10 ML Levofloxacin/ Dextrose 100 ml @ 100 mls/hr Q48H IV 10/24/24 20:45 UNV Gentamicin Sulfate 1 drop Q4HR LEFTEYE 10/25/24 10:00 10/29/24 17:54 1 DROP Cefpodoxime Proxetil 200 mg BID PO 10/25/24 22:00 UNV Cefpodoxime Proxetil 200 mg DAILY PO 10/25/24 21:00 10/29/24 10:38 200 MG Dopamine HCl/ Dextrose 250 ml @ 9.825 mls/ hr Q24H IV 10/26/24 13:00 10/29/24 16:37 9.825 MLS/HR Hydromorphone HCl 2 mg Q4HR IV 10/28/24 10:00 10/29/24 17:56 2 MG Metoprolol Tartrate 5 mg Q6HP PRN IV 10/29/24 15:00 Examination: LUNGS:Abnormal, MSK:Abnormal laboratory and microbiology Laboratory Tests 10/29/24 05:15 10/28/24 05:11 Test 10/29/24 05:15 Range/Units Serum Glucose 195 H 74-106 mg/dL Microbiology Date/Time Source Procedure Growth Status 10/20/24 09:35 Blood Blood Culture - Final NO GROWTH AFTER 5 DAYS OF INCUBATION. Complete 10/15/24 13:47 Nose MRSA Screen - Final Complete 10/13/24 22:00 Voided Urine Urine Culture - Final Complete Problem List/Assessment/Plan Problem List/Assessment/Plan Acute kidney injury likely septic ATN+(vanc +zosyn )nephrotoxicity Baseline renal function is normal Sepsis due to bacteremia; STaph Urinary tract infection Syncope Obstructive sleep apnea severe proteinuria likely due to Dm2 EF 55% grade 1 diatolic recs continue lasix iv Hd treatment today--for solute clearance and volume removal uf 4L off Plan discussed with: Patient Dietary Evaluation Review Comments: 1. Consider adding nephrovite 2. Consider adding renal to diet restrictions 3. Consider adding Nepro shake if pt with low PO intake Expected Outcomes/Goals: 1. Pt will consume >75% of estimated needs within 3-5 days NAOMI AKERS MD Oct 29, 2024 21:57
--- NOTE | 2024-10-29 23:38 | DVHPN2 ---
Consult Progress Note Date Seen: Oct 29, 2024 Subjective Patient reports: Other (is aggitated and frustrated , has generalized pain primarily in the back area , 5 liters nasal canula , volume status continues to improve ) Objective vital signs Vital Sign Date Time Temp Pulse Resp B/P (MAP) Pulse Ox O2 Delivery O2 Flow Rate FiO2 10/29/24 21:57 61 19 128/69 10/29/24 20:00 Oxymizer 5 N/A 10/29/24 17:00 98.1 99 98.1 Total Intake and Output 10/28/24 10/28/24 10/29/24 15:00 23:00 07:00 Intake Total 548 ml 813.5 ml 200 ml Output Total 1300 ml 1000 ml Balance 548 ml -486.5 ml -800 ml medications Current Medications Medications Dose Ordered Sig/Olinda Route Start Time Stop Time Status Last Admin Dose Admin Vancomycin HCl 0 ml @ 0 mls/hr UD IV 10/13/24 23:30 Cancel Atorvastatin Calcium 40 mg HS PO 10/14/24 22:00 10/29/24 22:01 40 MG Amlodipine Besylate 5 mg DAILY PO 10/14/24 10:00 10/29/24 10:32 5 MG Diagnostic Test (Pha) 1 strip Q6HR 10/14/24 00:00 10/29/24 17:57 1 STRIP Insulin Human Regular Q6HR SC 10/14/24 00:00 10/29/24 18:26 6 UNITS Dextrose 50 ml UD PRN IV 10/13/24 23:30 Ondansetron HCl 4 mg Q4HP PRN IV 10/13/24 23:30 10/29/24 14:03 4 MG Acetaminophen 650 mg Q6HP PRN PO 10/13/24 23:30 10/26/24 04:21 650 MG Nitroglycerin 0.4 mg Q5MINP PRN SL 10/13/24 23:30 Morphine Sulfate 2 mg Q30M PRN IV 10/13/24 23:30 Hold Aspirin 81 mg DAILY PO 10/15/24 10:00 10/29/24 10:31 81 MG Heparin Sodium (Porcine) 5,000 units Q12HR SC 10/15/24 10:00 10/29/24 22:04 5,000 UNITS Furosemide 80 mg BIDD IV 10/16/24 07:30 10/29/24 17:58 80 MG Epoetin Bran-epbx 8,000 unit TUTHSA@2100 SC 10/21/24 19:45 10/23/24 20:36 8,000 UNIT Vancomycin HCl 0 ml @ 0 mls/hr UD IV 10/22/24 21:30 Sodium Chloride 10 ml QSHIFT@10,22 IV 10/24/24 22:00 10/29/24 22:01 10 ML Levofloxacin/ Dextrose 100 ml @ 100 mls/hr Q48H IV 10/24/24 20:45 UNV Gentamicin Sulfate 1 drop Q4HR LEFTEYE 10/25/24 10:00 10/29/24 22:01 1 DROP Cefpodoxime Proxetil 200 mg BID PO 10/25/24 22:00 UNV Cefpodoxime Proxetil 200 mg DAILY PO 10/25/24 21:00 10/29/24 10:38 200 MG Dopamine HCl/ Dextrose 250 ml @ 9.825 mls/ hr Q24H IV 10/26/24 13:00 10/29/24 16:37 9.825 MLS/HR Hydromorphone HCl 2 mg Q4HR IV 10/28/24 10:00 10/29/24 21:57 2 MG Metoprolol Tartrate 5 mg Q6HP PRN IV 10/29/24 15:00 Physical Exam: General: NAD Neck: Supple. No masses. HEENT: PERRL. Normal lids and conjunctiva. Moist mucous membranes. Oropharynx without lesions, exudates or excessive erythema. Normal appearance of the external aspects of the nose and ears. Heart: Regular rhythm, normal rate. No murmur. No lower extremity edema. Lungs: Normal respiratory effort. Clear to auscultation bilaterally. No wheezes. No crackles. Abdomen: Soft. Non-tender. Non-distended. No masses or abdominal hernia. Msk: No digital cyanosis. Normal strength and tone in all 4 limbs. . Skin: Warm and dry, no rashes. Lesion on right dorsal foot as described. Neuro: Alert. No facial droop or slurred speech. Extra-ocular movements intact. Sensation intact to soft touch in all 4 limbs. Psych: Appropriate mood. Full affect. Oriented to person, place, time, and situation laboratory and microbiology Laboratory Tests 10/29/24 05:15 10/28/24 05:11 Test 10/29/24 05:15 Range/Units Serum Glucose 195 H 74-106 mg/dL Problem List/Assessment/Plan Problems(with codes): (1) Leg pain (2) Occluded PICC line (3) Cellulitis of right lower extremity (4) MSSA (methicillin susceptible Staphylococcus aureus) septicemia (5) Leukocytosis, unspecified (6) Metabolic encephalopathy (7) Diabetic foot ulcer (8) Cellulitis (9) Leg wound, left (10) Syncope and collapse (11) Status post amputation of left foot Problem List/Assessment/Plan ID Problem List: - MSSA bacteremia - Right foot cellulitis - Bilateral non-healing diabetic foot ulcers - Uncontrolled diabetes mellitus - Acute on chronic kidney disease - Morbid obesity - Dyslipidemia - Hypertension - History of stroke - Hypoxia - Severe sepsis - Lactic acidosis - Altered mental status - Hepatic steatosis - Possible need for further debridement Assessment This is a 69-year-old male with a past medical history of uncontrolled diabetes mellitus, hypertension, chronic kidney disease (baseline creatinine ~2), dyslipidemia, stroke, thyroid disease, morbid obesity, and multiple chronic non- healing diabetic foot ulcers on both feet. He has undergone prior amputations of the left and right great toes. The patient presents with an unwitnessed syncopal episode in the bathroom lasting approximately 4 hours. He denies any pre- syncopal symptoms, shortness of breath, fevers, or chills prior to the episode. On admission, the patient was febrile to 102.8F and hypoxic, requiring supplemental oxygen. Examination revealed right lower extremity cellulitis extending from the ankle to the great toe with drainage from a 1.1 cm ulcer. Laboratory findings include significant leukocytosis (WBC 36), anemia (Hb 12.2), worsening renal function (creatinine increased from baseline 2.61 to 2.7, BUN elevated to 89-92), hyperglycemia (glucose 279), and elevated lactic acid (4.5). Blood cultures grew MSSA on the 14th, and wound cultures from the right great toe grew MSSA on the th. Imaging studies showed right maxillary sinus opacification concerning for acute sinusitis. Left foot CT demonstrated mild soft tissue swelling without abscess or osteomyelitis. Right foot MRI indicated soft tissue inflammatory changes consistent with possible cellulitis but no abscess or osteomyelitis. The patient developed progressive hypoxia requiring up to 10 liters of supplemental oxygen. A V/Q scan ruled out pulmonary embolism. He underwent dialysis for worsening renal failure and volume overload, with placement of a dialysis catheter. 10/20:Blood cultures negative for 24 hours , not having an intolerance to nepsillin 10/21: chest x-ray shows pulmonary vascular congestion that is unchanged , on 10 liters nasal canula, blood cultures have no growth to date after 48 hours 10/22: White count is going up despite being on appropriate antibiotic therapy , possibly rellated to larger bacteria than anticipated or patients obesity with a BMI of 41. 10/24: white count is up to 18.8 despite switching antibiotics , at this point suspect patient has suppresed bacteria that has not been caught on cultures 10/25: Blood cultures remain negative , white count is now 14.7 10/28: on 3lNC 10/29; leukocytosis is improving on current regimen , awaiting for patients hypoxia to improve , likely related to volume overload Plan: - continue oral cefpodoxime 200 milligrams daily for 4 weeks - dose of vancomycin has been therapeutic - Continue vancomycin Iv for 4 weeks to be given with dialysis at dialysis center , 1.5g MWF - If white count continues to go up or patient demonstrates other signs of sepsis recommend repeating blood cultures , hold off for now - have dialysis catheter placed by radiology - Renal Function: - Monitor renal function closely. - Avoid nephrotoxic medications. - prior to placement of permanent dialysis catheter will need to ensure clearance of bacteremia - Infectious Disease and Debridement: - defer to podiatry for potential further debridement of the right foot infection. - If bacteremia persists, consider transesophageal echocardiogram (VANDANA) to rule out endocarditis. - will fu on blood cultures - Diabetes Management: - Optimize glycemic control with insulin therapy. keep BG<180 - Monitor blood glucose levels closely. - Respiratory Support: - Continue supplemental oxygen therapy. - Monitor oxygen saturation and adjust oxygen delivery as needed. - Sepsis Management: - Monitor lactic acid levels. - Provide appropriate supportive care for severe sepsis. Wound Care: - Continue wound care for bilateral foot ulcers. - Coordinate with wound care specialists and home health services. Other Considerations: - Address morbid obesity with nutritional support and weight management strategies. - Monitor liver function tests due to hepatic steatosis. Plan discussed with: Other Dietary Evaluation Review Comments: 1. Consider adding nephrovite 2. Consider adding renal to diet restrictions 3. Consider adding Nepro shake if pt with low PO intake Expected Outcomes/Goals: 1. Pt will consume >75% of estimated needs within 3-5 days KINGS ALVAREZ MD Oct 29, 2024 23:38
[2024-10-30] VITALS (9 sets, daily range): BP systolic 129–160; BP diastolic 61–73; PULSE 61–70; RESP 18–20; TEMP 97.6–98.4; O2SAT 97–100
[2024-10-30] MEDS: GENTAMICIN OPTH sol 0.3% 5ml LEFTEYE SCH (04:15)
[2024-10-30] MEDS: HYDROmorphone HCL 2 MG/ML VL/or syr IV SCH (04:21)
[2024-10-30 07:05] LABS: Potassium 4.4 mmol/L (3.5-5.1)
[2024-10-30 07:06] LABS: Anion Gap 10 (5-15); Calcium 9.6 mg/dL (8.7-10.4); Carbon Dioxide 27 mmol/L (20-31)
[2024-10-30 07:09] LABS: Chloride 93 mmol/L (98-107); Sodium 130 mmol/L (136-145)
[2024-10-30 07:11] LABS: BUN/Creatinine Ratio 7.7 (10.0-20.0)
[2024-10-30 07:16] LABS: Blood Urea Nitrogen 34 mg/dL (9-23); Glucose 177 mg/dL (74-106)
--- NOTE | 2024-10-30 08:41 | DVHPN2 ---
Reviewed: Care Plan, H&P, Labs, Medications, Previous Orders, Radiology Changes from previous H/P or p: No Changes Objective Vitals Vital Signs Date Time Temp Pulse Resp B/P (MAP) Pulse Ox O2 Delivery O2 Flow Rate FiO2 10/30/24 05:00 98.4 62 20 160/67 (98) 97 98.4 10/29/24 20:00 Oxymizer 5 N/A Intake/Output Intake and Output 10/30/24 07:00 Intake Total 1536 ml Output Total 750 ml Balance 786 ml Intake Oral 1036 ml IV Total 500 ml Output Urine Total 750 ml Medications Current Medications Medications Dose Ordered Sig/Olinda Route Start Time Stop Time Status Last Admin Dose Admin Vancomycin HCl 0 ml @ 0 mls/hr UD IV 10/13/24 23:30 Cancel Atorvastatin Calcium 40 mg HS PO 10/14/24 22:00 10/29/24 22:01 40 MG Amlodipine Besylate 5 mg DAILY PO 10/14/24 10:00 10/29/24 10:32 5 MG Diagnostic Test (Pha) 1 strip Q6HR 10/14/24 00:00 10/30/24 06:48 1 STRIP Insulin Human Regular Q6HR SC 10/14/24 00:00 10/29/24 23:56 4 UNITS Dextrose 50 ml UD PRN IV 10/13/24 23:30 Ondansetron HCl 4 mg Q4HP PRN IV 10/13/24 23:30 10/30/24 04:13 4 MG Acetaminophen 650 mg Q6HP PRN PO 10/13/24 23:30 10/26/24 04:21 650 MG Nitroglycerin 0.4 mg Q5MINP PRN SL 10/13/24 23:30 Morphine Sulfate 2 mg Q30M PRN IV 10/13/24 23:30 Hold Aspirin 81 mg DAILY PO 10/15/24 10:00 10/29/24 10:31 81 MG Heparin Sodium (Porcine) 5,000 units Q12HR SC 10/15/24 10:00 10/29/24 22:04 5,000 UNITS Furosemide 80 mg BIDD IV 10/16/24 07:30 10/29/24 17:58 80 MG Epoetin Bran-epbx 8,000 unit TUTHSA@2100 SC 10/21/24 19:45 10/23/24 20:36 8,000 UNIT Vancomycin HCl 0 ml @ 0 mls/hr UD IV 10/22/24 21:30 Sodium Chloride 10 ml QSHIFT@10,22 IV 10/24/24 22:00 10/29/24 22:01 10 ML Levofloxacin/ Dextrose 100 ml @ 100 mls/hr Q48H IV 10/24/24 20:45 UNV Cefpodoxime Proxetil 200 mg BID PO 10/25/24 22:00 UNV Cefpodoxime Proxetil 200 mg DAILY PO 10/25/24 21:00 10/29/24 10:38 200 MG Dopamine HCl/ Dextrose 250 ml @ 9.825 mls/ hr Q24H IV 10/26/24 13:00 10/29/24 16:37 9.825 MLS/HR Metoprolol Tartrate 5 mg Q6HP PRN IV 10/29/24 15:00 Gentamicin Sulfate 1 drop Q4HR LEFTEYE 10/30/24 04:30 10/30/24 04:15 1 DROP Hydromorphone HCl 2 mg Q4HR IV 10/30/24 04:30 10/30/24 04:21 2 MG Laboratory Results Laboratory Tests 10/28/24 05:11 10/30/24 06:10 Chemistry Test 10/30/24 06:10 Calcium Level 9.6 mg/dL (8.7-10.4) Urinalysis Test 10/13/24 22:00 10/14/24 17:27 Urine Color Yellow (Yellow) Urine Clarity Turbid (Clear) H Urine pH 6.0 (5.0-9.0) Urine Specific [place] 1.020 (1.001-1.035) Urine Protein 3+ (Negative) H Urine Ketones Negative (Negative) Urine Blood 3+ /uL (Negative) H Urine Nitrite Negative (Negative) Urine Bilirubin Negative (Negative) Urine Urobilinogen Normal mg/dL (Negative) Urine Leukocyte Esterase Negative /uL (Negative) Urine RBC 2 /hpf (0 - 3) Urine WBC 4 /hpf (0 - 3) Urine Squamous Epithelial Cells Few /hpf (<5) Urine Amorphous Crystals Few /hpf (None Seen) Urine Bacteria Mod /hpf (None Seen) H Urine Glucose 4+ mg/dL (Normal) H Urine Creatinine 77.85 mg/dL (30.0-125.0) Urine Sodium 24 mmol/L (40-220) L Urine Total Protein 647.5 mg/dL (1-14) H Microbiology Microbiology Date/Time Source Procedure Growth Status 10/20/24 09:35 Blood Blood Culture - Final NO GROWTH AFTER 5 DAYS OF INCUBATION. Complete 10/15/24 13:47 Nose MRSA Screen - Final Complete 10/13/24 22:00 Voided Urine Urine Culture - Final Complete Labs and/or images reviewed: Labs reviewed by me, Image(s) reviewed by me Assessment/Plan Assessment/Plan Septic shock with elevated white count altered mental status: Bacteremia with MSSA, ID consult by Dr. Phong Richmond appreciated, patient on vancomycin Syncope possibly secondary to sepsis: CT head negative, chest x-ray negative, C- spine CT negative, echocardiogram 55 percent ejection fraction, carotid ultrasound negative, Neurology consult appreciated EEG normal, Cardiology consult by Dr. Diaz appreciated, no further cardiac workup Non STEMI type 2 secondary to sepsis, echo 10/14/2024 shows 55 % ejection fraction Acute kidney injury hemodynamically mediated; multifactorial, BUN creatinine 44 and 2.61 at the time of admission, now worsening 68/6.94, closely following, patient received hemodialysis on 10/16/2024, bicarb drip discontinued Lasix continued Left foot infection with MSSA: Continue nafcillin Acute metabolic encephalopathy Elevated D-dimer 5.50: DVT ruled out , PE ruled out Chronic Left foot infection Consult for Dr. Watts appreciated, MRI left foot shows no osteomyelitis of the 1st metatarsal stump or abscess History of left 1st toe amputation Left knee x-ray negative Chronic calcaneus fracture right foot Hepatomegaly Hypertension Obstructive Sleep apnea: CPAP Uncontrolled diabetes: Insulin sliding scale Hypercholesterolemia Hypothyroidism History of CVA Chronic calcaneal fracture right foot History of coronary artery disease Diabetic medial left foot ulcer: Wound consult, wound cultures growing MSSA on nafcillin Right IJ dialysis cath in place Moderate malnutrition Pain management: On Dilaudid IV Time spent 65 minutes Continue current management Will request psychiatric social worker supervisor to set up chair timre for dialysis Plan discussed with: Patient My Orders Orders - ROWENA MEREDITH MD Procedure Category Date Status Time Metoprolol Inj PHA 10/29/24 In Process (Lopressor) 15:00 Gentamicin Opth Holli PHA 10/30/24 In Process 0.3% 5ml (Garamycin 04:30 Hydromorphone PHA 10/30/24 In Process Injection (Dilaudid 04:30 Date of Service: Oct 30, 2024 Billing Provider: ROWENA MEREDITH MD Common Visit Codes: 71013-[id number] CARE 30-74 MIN ROWENA MEREDITH MD Oct 30, 2024 08:41
[2024-10-30] MEDS: VANCOMYCIN 500mg/100mL 100 ML IV ONE (17:54)
--- NOTE | 2024-10-30 19:31 | DVHPN2 ---
Progress Note Date Seen: Oct 30, 2024 Medical Necessity Reason Pt with a Central, PICC or Fol: Yes The following are medically ne: [place] Catheter Subjective Patient reports: No new complaints Review of Systems: HEENT:Normal, CVS:Normal, RESPIRATORY:Normal, GI:Normal, :Normal, MSK:Normal, NEURO:Normal Objective vital signs Vital Sign Date Time Temp Pulse Resp B/P (MAP) Pulse Ox O2 Delivery O2 Flow Rate FiO2 10/30/24 18:25 67 16 132/67 10/30/24 17:00 97.7 99 97.7 10/30/24 07:58 Oxymizer 5 N/A Total Intake and Output 10/29/24 10/29/24 10/30/24 15:00 23:00 07:00 Intake Total 1236 ml 300 ml Output Total 650 ml 100 ml Balance 586 ml 200 ml medications Current Medications Medications Dose Ordered Sig/Olinda Route Start Time Stop Time Status Last Admin Dose Admin Vancomycin HCl 0 ml @ 0 mls/hr UD IV 10/13/24 23:30 Cancel Atorvastatin Calcium 40 mg HS PO 10/14/24 22:00 10/29/24 22:01 40 MG Amlodipine Besylate 5 mg DAILY PO 10/14/24 10:00 10/30/24 09:49 5 MG Diagnostic Test (Pha) 1 strip Q6HR 10/14/24 00:00 10/30/24 17:56 1 STRIP Insulin Human Regular Q6HR SC 10/14/24 00:00 10/30/24 18:14 4 UNITS Dextrose 50 ml UD PRN IV 10/13/24 23:30 Ondansetron HCl 4 mg Q4HP PRN IV 10/13/24 23:30 10/30/24 17:56 4 MG Acetaminophen 650 mg Q6HP PRN PO 10/13/24 23:30 10/26/24 04:21 650 MG Nitroglycerin 0.4 mg Q5MINP PRN SL 10/13/24 23:30 Morphine Sulfate 2 mg Q30M PRN IV 10/13/24 23:30 Hold Aspirin 81 mg DAILY PO 10/15/24 10:00 10/30/24 09:48 81 MG Heparin Sodium (Porcine) 5,000 units Q12HR SC 10/15/24 10:00 10/30/24 10:03 5,000 UNITS Furosemide 80 mg BIDD IV 10/16/24 07:30 10/30/24 17:55 80 MG Epoetin Bran-epbx 8,000 unit TUTHSA@2100 SC 10/21/24 19:45 10/23/24 20:36 8,000 UNIT Vancomycin HCl 0 ml @ 0 mls/hr UD IV 10/22/24 21:30 Sodium Chloride 10 ml QSHIFT@10,22 IV 10/24/24 22:00 10/30/24 09:49 10 ML Levofloxacin/ Dextrose 100 ml @ 100 mls/hr Q48H IV 10/24/24 20:45 UNV Cefpodoxime Proxetil 200 mg BID PO 10/25/24 22:00 UNV Cefpodoxime Proxetil 200 mg DAILY PO 10/25/24 21:00 10/30/24 09:48 200 MG Dopamine HCl/ Dextrose 250 ml @ 9.825 mls/ hr Q24H IV 10/26/24 13:00 10/29/24 16:37 9.825 MLS/HR Metoprolol Tartrate 5 mg Q6HP PRN IV 10/29/24 15:00 Gentamicin Sulfate 1 drop Q4HR LEFTEYE 10/30/24 04:30 10/30/24 17:54 1 DROP Hydromorphone HCl 2 mg Q4HR IV 10/30/24 04:30 10/30/24 17:55 2 MG Examination: GENERAL:Normal, HEENT:Normal, NECK:Normal, LUNGS:Normal, CVS:Normal, ABDOMEN:Normal, MSK:Abnormal, SKIN:Normal, NEURO:Normal, :Normal laboratory and microbiology Laboratory Tests 10/30/24 06:10 10/28/24 05:11 Test 10/30/24 06:10 Range/Units Serum Glucose 177 H 74-106 mg/dL Microbiology Date/Time Source Procedure Growth Status 10/20/24 09:35 Blood Blood Culture - Final NO GROWTH AFTER 5 DAYS OF INCUBATION. Complete 10/15/24 13:47 Nose MRSA Screen - Final Complete 10/13/24 22:00 Voided Urine Urine Culture - Final Complete Problem List/Assessment/Plan Problem List/Assessment/Plan Acute kidney injury likely septic ATN+(vanc +zosyn )nephrotoxicity Baseline renal function ckd3 Sepsis due to bacteremia; STaph Urinary tract infection Syncope Obstructive sleep apnea severe proteinuria likely due to Dm2 EF 55% grade 1 diatolic recs continue lasix iv HD friday Plan discussed with: Patient My Orders My Orders Orders - NAOMI AKERS MD Procedure Category Date Status Time * Bulbs Farmworker CONS 10/30/24 Transmitted Consult Dietary Evaluation Review Comments: 1. Consider adding nephrovite 2. Consider adding renal to diet restrictions 3. Consider adding Nepro shake if pt with low PO intake Expected Outcomes/Goals: 1. Pt will consume >75% of estimated needs within 3-5 days NAOMI AKERS MD Oct 30, 2024 19:31
--- NOTE | 2024-10-30 23:09 | DVHPN2 ---
Consult Progress Note Date Seen: Oct 30, 2024 Subjective Patient reports: Feels better (no fever or chills, iv line infiltrated) Objective vital signs Vital Sign Date Time Temp Pulse Resp B/P (MAP) Pulse Ox O2 Delivery O2 Flow Rate FiO2 10/30/24 22:35 65 18 130/65 10/30/24 21:00 98.0 100 98.0 10/30/24 07:58 Oxymizer 5 N/A Total Intake and Output 10/29/24 10/29/24 10/30/24 15:00 23:00 07:00 Intake Total 1236 ml 300 ml Output Total 650 ml 100 ml Balance 586 ml 200 ml medications Current Medications Medications Dose Ordered Sig/Olinda Route Start Time Stop Time Status Last Admin Dose Admin Vancomycin HCl 0 ml @ 0 mls/hr UD IV 10/13/24 23:30 Cancel Atorvastatin Calcium 40 mg HS PO 10/14/24 22:00 10/30/24 22:45 40 MG Amlodipine Besylate 5 mg DAILY PO 10/14/24 10:00 10/30/24 09:49 5 MG Diagnostic Test (Pha) 1 strip Q6HR 10/14/24 00:00 10/30/24 17:56 1 STRIP Insulin Human Regular Q6HR SC 10/14/24 00:00 10/30/24 18:14 4 UNITS Dextrose 50 ml UD PRN IV 10/13/24 23:30 Ondansetron HCl 4 mg Q4HP PRN IV 10/13/24 23:30 10/30/24 22:41 4 MG Acetaminophen 650 mg Q6HP PRN PO 10/13/24 23:30 10/26/24 04:21 650 MG Nitroglycerin 0.4 mg Q5MINP PRN SL 10/13/24 23:30 Morphine Sulfate 2 mg Q30M PRN IV 10/13/24 23:30 Hold Aspirin 81 mg DAILY PO 10/15/24 10:00 10/30/24 09:48 81 MG Heparin Sodium (Porcine) 5,000 units Q12HR SC 10/15/24 10:00 10/30/24 22:58 5,000 UNITS Furosemide 80 mg BIDD IV 10/16/24 07:30 10/30/24 17:55 80 MG Epoetin Bran-epbx 8,000 unit TUTHSA@2100 SC 10/21/24 19:45 10/30/24 22:47 8,000 UNIT Vancomycin HCl 0 ml @ 0 mls/hr UD IV 10/22/24 21:30 Sodium Chloride 10 ml QSHIFT@10,22 IV 10/24/24 22:00 10/30/24 22:42 10 ML Levofloxacin/ Dextrose 100 ml @ 100 mls/hr Q48H IV 10/24/24 20:45 UNV Cefpodoxime Proxetil 200 mg BID PO 10/25/24 22:00 UNV Cefpodoxime Proxetil 200 mg DAILY PO 10/25/24 21:00 10/30/24 09:48 200 MG Dopamine HCl/ Dextrose 250 ml @ 9.825 mls/ hr Q24H IV 10/26/24 13:00 10/29/24 16:37 9.825 MLS/HR Metoprolol Tartrate 5 mg Q6HP PRN IV 10/29/24 15:00 Gentamicin Sulfate 1 drop Q4HR LEFTEYE 10/30/24 04:30 10/30/24 22:42 1 DROP Hydromorphone HCl 2 mg Q4HR IV 10/30/24 04:30 10/30/24 22:35 2 MG HEENT: PERRL. Normal lids and conjunctiva. Moist mucous membranes. Oropharynx without lesions, exudates, or excessive erythema. Normal appearance of the external aspects of the nose and ears. Heart: Regular rhythm, normal rate. No murmur. No lower extremity edema. Lungs: Normal respiratory effort. Clear to auscultation bilaterally. No wheezes. No crackles. Abdomen: Soft. Non-tender. Non-distended. No masses or abdominal hernia. MSK: No digital cyanosis. Normal strength and tone in all 4 limbs. Skin: Warm and dry. Redness and irritation of the groin area. Neuro: Alert. No facial droop or slurred speech. Extra-ocular movements intact. Sensation intact to soft touch in all 4 limbs. Psych: Appropriate mood. Full affect. Oriented to person, place, time, and situation. laboratory and microbiology Laboratory Tests 10/30/24 06:10 10/28/24 05:11 Test 10/30/24 06:10 Range/Units Serum Glucose 177 H 74-106 mg/dL Problem List/Assessment/Plan Problem List/Assessment/Plan ID Problem List: - MSSA bacteremia - Right foot cellulitis - Bilateral non-healing diabetic foot ulcers - Uncontrolled diabetes mellitus - Acute on chronic kidney disease - Morbid obesity - Dyslipidemia - Hypertension - History of stroke - Hypoxia - Severe sepsis - Lactic acidosis - Altered mental status - Hepatic steatosis - Possible need for further debridement Assessment This is a 69-year-old male with a past medical history of uncontrolled diabetes mellitus, hypertension, chronic kidney disease (baseline creatinine ~2), dyslipidemia, stroke, thyroid disease, morbid obesity, and multiple chronic non- healing diabetic foot ulcers on both feet. He has undergone prior amputations of the left and right great toes. The patient presents with an unwitnessed syncopal episode in the bathroom lasting approximately 4 hours. He denies any pre- syncopal symptoms, shortness of breath, fevers, or chills prior to the episode. On admission, the patient was febrile to 102.8F and hypoxic, requiring supplemental oxygen. Examination revealed right lower extremity cellulitis extending from the ankle to the great toe with drainage from a 1.1 cm ulcer. Laboratory findings include significant leukocytosis (WBC 36), anemia (Hb 12.2), worsening renal function (creatinine increased from baseline 2.61 to 2.7, BUN elevated to 89-92), hyperglycemia (glucose 279), and elevated lactic acid (4.5). Blood cultures grew MSSA on the 14th, and wound cultures from the right great toe grew MSSA on the 13th. Imaging studies showed right maxillary sinus opacification concerning for acute sinusitis. Left foot CT demonstrated mild soft tissue swelling without abscess or osteomyelitis. Right foot MRI indicated soft tissue inflammatory changes consistent with possible cellulitis but no abscess or osteomyelitis. The patient developed progressive hypoxia requiring up to 10 liters of supplemental oxygen. A V/Q scan ruled out pulmonary embolism. He underwent dialysis for worsening renal failure and volume overload, with placement of a dialysis catheter. 10/20:Blood cultures negative for 24 hours , not having an intolerance to nepsillin 10/21: chest x-ray shows pulmonary vascular congestion that is unchanged , on 10 liters nasal canula, blood cultures have no growth to date after 48 hours 10/22: White count is going up despite being on appropriate antibiotic therapy , possibly rellated to larger bacteria than anticipated or patients obesity with a BMI of 41. 10/24: white count is up to 18.8 despite switching antibiotics , at this point suspect patient has suppresed bacteria that has not been caught on cultures 10/25: Blood cultures remain negative , white count is now 14.7 10/28: on 3lNC 10/29; leukocytosis is improving on current regimen , awaiting for patients hypoxia to improve , likely related to volume overload 10/31: increased UOP Plan: - continue oral cefpodoxime 200 milligrams daily for 4 weeks, EOT date is 11/22/24 - dose of vancomycin has been therapeutic - Continue vancomycin Iv for 4 weeks to be given with dialysis at dialysis center , 1.5g MWF, EOT date is 11/22/24 - If white count continues to go up or patient demonstrates other signs of sepsis recommend repeating blood cultures , hold off for now - Renal Function: - Monitor renal function closely. - Avoid nephrotoxic medications. - prior to placement of permanent dialysis catheter will need to ensure clearance of bacteremia - Infectious Disease and Debridement: - defer to podiatry for potential further debridement of the right foot infection. - will fu on blood cultures - agree w/ gentamicin cream from chronic red eye irritation - Diabetes Management: - Optimize glycemic control with insulin therapy. keep BG<180 - Monitor blood glucose levels closely. - Respiratory Support: - Continue supplemental oxygen therapy. - Monitor oxygen saturation and adjust oxygen delivery as needed. - Sepsis Management: - Monitor lactic acid levels. - Provide appropriate supportive care for severe sepsis. Wound Care: - Continue wound care for bilateral foot ulcers. - Coordinate with wound care specialists and home health services. Other Considerations: - Address morbid obesity with nutritional support and weight management strategies. - Monitor liver function tests due to hepatic steatosis. Plan discussed with: Patient Dietary Evaluation Review Comments: 1. Consider adding nephrovite 2. Consider adding renal to diet restrictions 3. Consider adding Nepro shake if pt with low PO intake Expected Outcomes/Goals: 1. Pt will consume >75% of estimated needs within 3-5 days KINGS ALVAREZ MD Oct 30, 2024 23:09
[2024-10-31] VITALS (9 sets, daily range): BP systolic 134–156; BP diastolic 54–77; PULSE 62–80; RESP 18–20; TEMP 98–98.5; O2SAT 96–100
[2024-10-31 05:35] LABS: Basophils # (auto) 0.1 10 ^3/uL (0-0.2); Eosinophils # (auto) 0.4 10 ^3/uL (0-0.8); Eosinophils % (auto) 3.5 % (0.0-7.0); Hematocrit 29.1 % (41.0-53.0); Monocytes # (auto) 0.9 10 ^3/uL (0-1.3); Monocytes % (auto) 7.9 % (0.0-12.0); White Blood Cell 11.1 10^3/uL (4.4-10.8)
[2024-10-31 05:37] LABS: Basophils % (auto) 0.8 % (0.0-2.0); Hemoglobin 9.7 g/dL (13.5-17.5); Lymphocytes # (auto) 1.8 10 ^3/uL (0.4-5.4); Lymphocytes % (auto) 16.1 % (10.0-50.0); Mean Corpuscular Hemoglobin 26.4 pg (28.0-32.0); Mean Corpuscular Hgb Conc. 33.2 g/dL (32.0-36.0); Mean Corpuscular Volume 79.5 fL (80.0-100.0); Neutrophils # (auto) 7.9 10 ^3/uL (1.6-8.6); Neutrophils % (auto) 71.7 % (37.0-80.0); Platelet Count (auto) 353 10^3/uL (140-450); Red Blood Cells 3.66 10^6/uL (4.5-5.90); Red Cell Distribution Width 17.4 % (11.8-14.3)
[2024-10-31 05:49] LABS: Calcium 9.6 mg/dL (8.7-10.4); Potassium 4.8 mmol/L (3.5-5.1)
[2024-10-31 05:50] LABS: Anion Gap 13 (5-15); Carbon Dioxide 23 mmol/L (20-31)
[2024-10-31 05:55] LABS: BUN/Creatinine Ratio 8.9 (10.0-20.0)
[2024-10-31 05:58] LABS: Blood Urea Nitrogen 46 mg/dL (9-23); Chloride 91 mmol/L (98-107); Glucose 186 mg/dL (74-106); Sodium 127 mmol/L (136-145)
--- NOTE | 2024-10-31 08:08 | DVHPN2 ---
Reviewed: Care Plan, H&P, Labs, Medications, Previous Orders, Radiology Changes from previous H/P or p: No Changes Objective Vitals Vital Signs Date Time Temp Pulse Resp B/P (MAP) Pulse Ox O2 Delivery O2 Flow Rate FiO2 10/31/24 06:32 66 18 116/73 10/31/24 05:00 98.0 97 98.0 10/30/24 20:00 Oxymizer 5 N/A Intake/Output Intake and Output 10/31/24 07:00 Intake Total 1354.95 ml Output Total 1450 ml Balance -95.05 ml Intake Oral 1296 ml IV Total 58.95 ml Output Urine Total 1450 ml Medications Current Medications Medications Dose Ordered Sig/Olinda Route Start Time Stop Time Status Last Admin Dose Admin Vancomycin HCl 0 ml @ 0 mls/hr UD IV 10/13/24 23:30 Cancel Atorvastatin Calcium 40 mg HS PO 10/14/24 22:00 10/30/24 22:45 40 MG Amlodipine Besylate 5 mg DAILY PO 10/14/24 10:00 10/30/24 09:49 5 MG Diagnostic Test (Pha) 1 strip Q6HR 10/14/24 00:00 10/31/24 06:02 1 STRIP Insulin Human Regular Q6HR SC 10/14/24 00:00 10/31/24 05:58 4 UNITS Dextrose 50 ml UD PRN IV 10/13/24 23:30 Ondansetron HCl 4 mg Q4HP PRN IV 10/13/24 23:30 10/31/24 06:07 4 MG Acetaminophen 650 mg Q6HP PRN PO 10/13/24 23:30 10/26/24 04:21 650 MG Nitroglycerin 0.4 mg Q5MINP PRN SL 10/13/24 23:30 Morphine Sulfate 2 mg Q30M PRN IV 10/13/24 23:30 Hold Aspirin 81 mg DAILY PO 10/15/24 10:00 10/30/24 09:48 81 MG Heparin Sodium (Porcine) 5,000 units Q12HR SC 10/15/24 10:00 10/30/24 22:58 5,000 UNITS Furosemide 80 mg BIDD IV 10/16/24 07:30 10/31/24 06:00 80 MG Epoetin Bran-epbx 8,000 unit TUTHSA@2100 [place] 10/21/24 19:45 10/30/24 22:47 8,000 UNIT Vancomycin HCl 0 ml @ 0 mls/hr UD IV 10/22/24 21:30 Sodium Chloride 10 ml QSHIFT@10,22 IV 10/24/24 22:00 10/30/24 22:42 10 ML Levofloxacin/ Dextrose 100 ml @ 100 mls/hr Q48H IV 10/24/24 20:45 UNV Cefpodoxime Proxetil 200 mg BID PO 10/25/24 22:00 UNV Cefpodoxime Proxetil 200 mg DAILY PO 10/25/24 21:00 10/30/24 09:48 200 MG Dopamine HCl/ Dextrose 250 ml @ 9.825 mls/ hr Q24H IV 10/26/24 13:00 10/31/24 01:08 9.825 MLS/HR Metoprolol Tartrate 5 mg Q6HP PRN IV 10/29/24 15:00 Gentamicin Sulfate 1 drop Q4HR LEFTEYE 10/30/24 04:30 10/31/24 06:02 1 DROP Hydromorphone HCl 2 mg Q4HR IV 10/30/24 04:30 10/31/24 06:02 2 MG Laboratory Results Laboratory Tests 10/31/24 05:13 Chemistry Test 10/31/24 05:13 Calcium Level 9.6 mg/dL (8.7-10.4) Urinalysis Test 10/13/24 22:00 10/14/24 17:27 Urine Color Yellow (Yellow) Urine Clarity Turbid (Clear) H Urine pH 6.0 (5.0-9.0) Urine Specific Beemer 1.020 (1.001-1.035) Urine Protein 3+ (Negative) H Urine Ketones Negative (Negative) Urine Blood 3+ /uL (Negative) H Urine Nitrite Negative (Negative) Urine Bilirubin Negative (Negative) Urine Urobilinogen Normal mg/dL (Negative) Urine Leukocyte Esterase Negative /uL (Negative) Urine RBC 2 /hpf (0 - 3) Urine WBC 4 /hpf (0 - 3) Urine Squamous Epithelial Cells Few /hpf (<5) Urine Amorphous Crystals Few /hpf (None Seen) Urine Bacteria Mod /hpf (None Seen) H Urine Glucose 4+ mg/dL (Normal) H Urine Creatinine 77.85 mg/dL (30.0-125.0) Urine Sodium 24 mmol/L (40-220) L Urine Total Protein 647.5 mg/dL (1-14) H Microbiology Microbiology Date/Time Source Procedure Growth Status 10/20/24 09:35 Blood Blood Culture - Final NO GROWTH AFTER 5 DAYS OF INCUBATION. Complete 10/15/24 13:47 Nose MRSA Screen - Final Complete 10/13/24 22:00 Voided Urine Urine Culture - Final Complete Labs and/or images reviewed: Labs reviewed by me, Image(s) reviewed by me Assessment/Plan Assessment/Plan Septic shock with elevated white count altered mental status: Bacteremia with MSSA, ID consult by Dr. Phong Richmond appreciated, patient on vancomycin Syncope possibly secondary to sepsis: CT head negative, chest x-ray negative, C- spine CT negative, echocardiogram 55 percent ejection fraction, carotid ultrasound negative, Neurology consult appreciated EEG normal, Cardiology consult by Dr. Diaz appreciated, no further cardiac workup Non STEMI type 2 secondary to sepsis, echo 10/14/2024 shows 55 % ejection fraction Acute kidney injury hemodynamically mediated; multifactorial, BUN creatinine 44 and 2.61 at the time of admission, now worsening 68/6.94, closely following, patient received hemodialysis on 10/16/2024, bicarb drip discontinued Lasix continued Left foot infection with MSSA: Continue nafcillin Acute metabolic encephalopathy Elevated D-dimer 5.50: DVT ruled out , PE ruled out Chronic Left foot infection Consult for Dr. Watts appreciated, MRI left foot shows no osteomyelitis of the 1st metatarsal stump or abscess History of left 1st toe amputation Left knee x-ray negative Chronic calcaneus fracture right foot Hepatomegaly Hypertension Obstructive Sleep apnea: CPAP Uncontrolled diabetes: Insulin sliding scale Hypercholesterolemia Hypothyroidism History of CVA Chronic calcaneal fracture right foot History of coronary artery disease Diabetic medial left foot ulcer: Wound consult, wound cultures growing MSSA on nafcillin Right IJ dialysis cath in place Moderate malnutrition Pain management: On Dilaudid IV Time spent 65 minutes Continue current management Will request social work specialist to set up chair timre for dialysis Hemodialysis Friday Plan discussed with: Patient My Orders Orders - ROWENA MEREDITH MD Procedure Category Date Status Time * Shipping Room Supervisor CONS 10/30/24 Transmitted Consult 08:38 Date of Service: Oct 31, 2024 Billing Provider: ROWENA MEREDITH MD Common Visit Codes: 86433-[id number] CARE 30-74 MIN ROWENA MEREDITH MD Oct 31, 2024 08:08
[2024-10-31] MEDS: LACTULOSE 20Gm/30ML SOLN PO ONE (08:15)
--- NOTE | 2024-10-31 08:37 | DVH ---
CLINICAL INFORMATION: 69 years old, Male; edema. TECHNIQUE: Single AP portable chest radiograph was obtained. COMPARISON: XY CHEST PORTABLE on DOS: 10/21/24, XY CHEST XRAY 1 VIEW on DOS: 10/16/24, XY CHEST XRAY 1 VIEW on DOS: 10/15/24 FINDINGS: Lungs: Tver-[id number]-honlpeti elevation of the right hemidiaphragm, unchanged. Minimal perihilar interstiti al opacities. No focal consolidation. Cardiac: Heart size is within normal limits. Pulmonary vasculature: Slight prominence of the pulmonary vasculature. Mediastinum/rajeev: Stable satisfactory positioning of the right internal jugular dialysis catheter. Bones: No acute osseous abnormality identified. Other: No other significant findings. IMPRESSION: Nonspecific minimal perihilar interstitial opacities and slight prominence of the pulmonary vasculatu re. A mild degree of pulmonary vascular congestion is not excluded in the appropriate clinical setti ng.
--- NOTE | 2024-10-31 17:46 | DVHPN2 ---
Progress Note Date Seen: Oct 31, 2024 Medical Necessity Reason Pt with a Central, PICC or Fol: Yes The following are medically ne: [place] Catheter Subjective Patient reports: No new complaints Review of Systems: Deferred Objective vital signs Vital Sign Date Time Temp Pulse Resp B/P (MAP) Pulse Ox O2 Delivery O2 Flow Rate FiO2 10/31/24 15:03 66 16 123/63 10/31/24 13:00 98.4 98 98.4 10/31/24 07:50 Oxymizer 5 N/A Total Intake and Output 10/30/24 10/30/24 10/31/24 15:00 23:00 07:00 Intake Total 1000 ml 354.95 ml Output Total 300 ml 1150 ml Balance 700 ml -795.05 ml medications Current Medications Medications Dose Ordered Sig/Olinda Route Start Time Stop Time Status Last Admin Dose Admin Vancomycin HCl 0 ml @ 0 mls/hr UD IV 10/13/24 23:30 Cancel Atorvastatin Calcium 40 mg HS PO 10/14/24 22:00 10/30/24 22:45 40 MG Amlodipine Besylate 5 mg DAILY PO 10/14/24 10:00 10/31/24 10:27 5 MG Diagnostic Test (Pha) 1 strip Q6HR 10/14/24 00:00 10/31/24 11:50 1 STRIP Insulin Human Regular Q6HR SC 10/14/24 00:00 10/31/24 13:13 4 UNITS Dextrose 50 ml UD PRN IV 10/13/24 23:30 Ondansetron HCl 4 mg Q4HP PRN IV 10/13/24 23:30 10/31/24 15:02 4 MG Acetaminophen 650 mg Q6HP PRN PO 10/13/24 23:30 10/26/24 04:21 650 MG Nitroglycerin 0.4 mg Q5MINP PRN SL 10/13/24 23:30 Morphine Sulfate 2 mg Q30M PRN IV 10/13/24 23:30 Hold Aspirin 81 mg DAILY PO 10/15/24 10:00 10/31/24 10:27 81 MG Heparin Sodium (Porcine) 5,000 units Q12HR SC 10/15/24 10:00 10/31/24 10:40 5,000 UNITS Furosemide 80 mg BIDD IV 10/16/24 07:30 10/31/24 06:00 80 MG Epoetin Bran-epbx 8,000 unit TUTHSA@2100 SC 10/21/24 19:45 10/30/24 22:47 8,000 UNIT Vancomycin HCl 0 ml @ 0 mls/hr UD IV 10/22/24 21:30 Sodium Chloride 10 ml QSHIFT@10,22 IV 10/24/24 22:00 10/31/24 10:27 10 ML Levofloxacin/ Dextrose 100 ml @ 100 mls/hr Q48H IV 10/24/24 20:45 UNV Cefpodoxime Proxetil 200 mg BID PO 10/25/24 22:00 UNV Cefpodoxime Proxetil 200 mg DAILY PO 10/25/24 21:00 10/31/24 10:27 200 MG Dopamine HCl/ Dextrose 250 ml @ 9.825 mls/ hr Q24H IV 10/26/24 13:00 10/31/24 01:08 9.825 MLS/HR Metoprolol Tartrate 5 mg Q6HP PRN IV 10/29/24 15:00 Gentamicin Sulfate 1 drop Q4HR LEFTEYE 10/30/24 04:30 10/31/24 13:10 1 DROP Hydromorphone HCl 2 mg Q4HR IV 10/30/24 04:30 10/31/24 15:03 2 MG Examination: LUNGS:Abnormal, MSK:Abnormal, SKIN:Abnormal laboratory and microbiology Laboratory Tests 10/31/24 05:13 Test 10/31/24 05:13 Range/Units Serum Glucose 186 H 74-106 mg/dL Microbiology Date/Time Source Procedure Growth Status 10/20/24 09:35 Blood Blood Culture - Final NO GROWTH AFTER 5 DAYS OF INCUBATION. Complete 10/15/24 13:47 Nose MRSA Screen - Final Complete 10/13/24 22:00 Voided Urine Urine Culture - Final Complete Problem List/Assessment/Plan Problem List/Assessment/Plan Acute kidney injury likely septic ATN+(vanc +zosyn )nephrotoxicity Baseline renal function ckd3 Sepsis due to bacteremia; STaph Urinary tract infection Syncope Obstructive sleep apnea severe proteinuria likely due to Dm2 EF 55% grade 1 diatolic recs continue lasix iv HD friday outpt chairtime with DCD Plan discussed with: Patient, Other My Orders My Orders Orders - NAOMI AKERS MD Procedure Category Date Status Time * Photographic Equipment Mechanic CONS 10/30/24 Transmitted Consult Chest Portable XY 10/30/24 Resulted 19:31 Dietary Evaluation Review Comments: 1. Consider adding nephrovite 2. Consider adding renal to diet restrictions 3. Consider adding Nepro shake if pt with low PO intake Expected Outcomes/Goals: 1. Pt will consume >75% of estimated needs within 3-5 days NAOMI AKERS MD Oct 31, 2024 17:46
--- NOTE | 2024-10-31 23:45 | DVHPN2 ---
Consult Progress Note Date Seen: Oct 31, 2024 Subjective Patient reports: Feels better (ongoing cough w/ physical position changes) Objective vital signs Vital Sign Date Time Temp Pulse Resp B/P (MAP) Pulse Ox O2 Delivery O2 Flow Rate FiO2 10/31/24 23:15 59 18 138/66 10/31/24 21:00 98.2 97 98.2 10/31/24 07:50 Oxymizer 5 N/A Total Intake and Output 10/30/24 10/30/24 10/31/24 15:00 23:00 07:00 Intake Total 1117.9 ml 354.95 ml Output Total 300 ml 1150 ml Balance 817.9 ml -795.05 ml medications Current Medications Medications Dose Ordered Sig/Olinda Route Start Time Stop Time Status Last Admin Dose Admin Vancomycin HCl 0 ml @ 0 mls/hr UD IV 10/13/24 23:30 Cancel Atorvastatin Calcium 40 mg HS PO 10/14/24 22:00 10/31/24 22:36 40 MG Amlodipine Besylate 5 mg DAILY PO 10/14/24 10:00 10/31/24 10:27 5 MG Diagnostic Test (Pha) 1 strip Q6HR 10/14/24 00:00 10/31/24 23:02 1 STRIP Insulin Human Regular Q6HR SC 10/14/24 00:00 10/31/24 23:08 6 UNITS Dextrose 50 ml UD PRN IV 10/13/24 23:30 Ondansetron HCl 4 mg Q4HP PRN IV 10/13/24 23:30 10/31/24 22:36 4 MG Acetaminophen 650 mg Q6HP PRN PO 10/13/24 23:30 10/26/24 04:21 650 MG Nitroglycerin 0.4 mg Q5MINP PRN SL 10/13/24 23:30 Morphine Sulfate 2 mg Q30M PRN IV 10/13/24 23:30 Hold Aspirin 81 mg DAILY PO 10/15/24 10:00 10/31/24 10:27 81 MG Heparin Sodium (Porcine) 5,000 units Q12HR SC 10/15/24 10:00 10/31/24 22:50 5,000 UNITS Furosemide 80 mg BIDD IV 10/16/24 07:30 10/31/24 18:37 80 MG Epoetin Bran-epbx 8,000 unit TUTHSA@2100 SC 10/21/24 19:45 10/30/24 22:47 8,000 UNIT Vancomycin HCl 0 ml @ 0 mls/hr UD IV 10/22/24 21:30 Sodium Chloride 10 ml QSHIFT@10,22 IV 10/24/24 22:00 10/31/24 22:35 10 ML Levofloxacin/ Dextrose 100 ml @ 100 mls/hr Q48H IV 10/24/24 20:45 UNV Cefpodoxime Proxetil 200 mg BID PO 10/25/24 22:00 UNV Cefpodoxime Proxetil 200 mg DAILY PO 10/25/24 21:00 10/31/24 10:27 200 MG Dopamine HCl/ Dextrose 250 ml @ 9.825 mls/ hr Q24H IV 10/26/24 13:00 10/31/24 01:08 9.825 MLS/HR Metoprolol Tartrate 5 mg Q6HP PRN IV 10/29/24 15:00 Gentamicin Sulfate 1 drop Q4HR LEFTEYE 10/30/24 04:30 10/31/24 22:35 1 DROP Hydromorphone HCl 2 mg Q4HR IV 10/30/24 04:30 10/31/24 22:45 2 MG HEENT: PERRL. Normal lids and conjunctiva. Moist mucous membranes. Oropharynx without lesions, exudates, or excessive erythema. Normal appearance of the external aspects of the nose and ears. Heart: Regular rhythm, normal rate. No murmur. No lower extremity edema. Lungs: Normal respiratory effort. Clear to auscultation bilaterally. No wheezes. No crackles. Abdomen: Soft. Non-tender. Non-distended. No masses or abdominal hernia. MSK: No digital cyanosis. Normal strength and tone in all 4 limbs. Skin: Warm and dry. Redness and irritation of the groin area. Neuro: Alert. No facial droop or slurred speech. Extra-ocular movements intact. Sensation intact to soft touch in all 4 limbs. Psych: Appropriate mood. Full affect. Oriented to person, place, time, and situation. laboratory and microbiology Laboratory Tests 10/31/24 05:13 Test 10/31/24 05:13 Range/Units Serum Glucose 186 H 74-106 mg/dL Problem List/Assessment/Plan Problem List/Assessment/Plan ID Problem List: - MSSA bacteremia - Right foot cellulitis - Bilateral non-healing diabetic foot ulcers - Uncontrolled diabetes mellitus - Acute on chronic kidney disease - Morbid obesity - Dyslipidemia - Hypertension - History of stroke - Hypoxia - Severe sepsis - Lactic acidosis - Altered mental status - Hepatic steatosis - Possible need for further debridement Assessment This is a 69-year-old male with a past medical history of uncontrolled diabetes mellitus, hypertension, chronic kidney disease (baseline creatinine ~2), dyslipidemia, stroke, thyroid disease, morbid obesity, and multiple chronic non- healing diabetic foot ulcers on both feet. He has undergone prior amputations of the left and right great toes. The patient presents with an unwitnessed syncopal episode in the bathroom lasting approximately 4 hours. He denies any pre- syncopal symptoms, shortness of breath, fevers, or chills prior to the episode. On admission, the patient was febrile to 102.8F and hypoxic, requiring supplemental oxygen. Examination revealed right lower extremity cellulitis extending from the ankle to the great toe with drainage from a 1.1 cm ulcer. Laboratory findings include significant leukocytosis (WBC 36), anemia (Hb 12.2), worsening renal function (creatinine increased from baseline 2.61 to 2.7, BUN elevated to 89-92), hyperglycemia (glucose 279), and elevated lactic acid (4.5). Blood cultures grew MSSA on the 14th, and wound cultures from the right great toe grew MSSA on the 13th. Imaging studies showed right maxillary sinus opacification concerning for acute sinusitis. Left foot CT demonstrated mild soft tissue swelling without abscess or osteomyelitis. Right foot MRI indicated soft tissue inflammatory changes consistent with possible cellulitis but no abscess or osteomyelitis. The patient developed progressive hypoxia requiring up to 10 liters of supplemental oxygen. A V/Q scan ruled out pulmonary embolism. He underwent dialysis for worsening renal failure and volume overload, with placement of a dialysis catheter. 10/20:Blood cultures negative for 24 hours , not having an intolerance to nepsillin 10/21: chest x-ray shows pulmonary vascular congestion that is unchanged , on 10 liters nasal canula, blood cultures have no growth to date after 48 hours 10/22: White count is going up despite being on appropriate antibiotic therapy , possibly rellated to larger bacteria than anticipated or patients obesity with a BMI of 41. 10/24: white count is up to 18.8 despite switching antibiotics , at this point suspect patient has suppresed bacteria that has not been caught on cultures 10/25: Blood cultures remain negative , white count is now 14.7 10/28: on 3lNC 10/29; leukocytosis is improving on current regimen , awaiting for patients hypoxia to improve , likely related to volume overload 10/31: increased UOP Plan: - continue oral cefpodoxime 200 milligrams daily for 4 weeks, EOT date is 11/22/24 - dose of vancomycin has been therapeutic - Continue vancomycin Iv for 4 weeks to be given with dialysis at dialysis center , 1.5g MWF, EOT date is 11/22/24 - If white count continues to go up or patient demonstrates other signs of sepsis recommend repeating blood cultures , hold off for now - Renal Function: - Monitor renal function closely. - Avoid nephrotoxic medications. - prior to placement of permanent dialysis catheter will need to ensure clearance of bacteremia - Infectious Disease and Debridement: - defer to podiatry for potential further debridement of the right foot infection. - will fu on blood cultures - Diabetes Management: - Optimize glycemic control with insulin therapy. keep BG<180 - Monitor blood glucose levels closely. - Respiratory Support: - Continue supplemental oxygen therapy. - Monitor oxygen saturation and adjust oxygen delivery as needed. - Sepsis Management: - Monitor lactic acid levels. - Provide appropriate supportive care for severe sepsis. Wound Care: - Continue wound care for bilateral foot ulcers. - Coordinate with wound care specialists and home health services. Other Considerations: - Address morbid obesity with nutritional support and weight management strategies. - Monitor liver function tests due to hepatic steatosis. Plan discussed with: Patient Dietary Evaluation Review Comments: 1. Consider adding nephrovite 2. Consider adding renal to diet restrictions 3. Consider adding Nepro shake if pt with low PO intake Expected Outcomes/Goals: 1. Pt will consume >75% of estimated needs within 3-5 days KINGS ALVAREZ MD Oct 31, 2024 23:45
[2024-11-01] VITALS (8 sets, daily range): BP systolic 120–142; BP diastolic 43–75; PULSE 62–84; RESP 17–18; TEMP 97.5–98.1; O2SAT 95–100
[2024-11-01] MEDS: SODIUM CHL 0.9% 1000 ML BAG XX ONE (06:30)
[2024-11-01 06:32] LABS: Potassium 4.1 mmol/L (3.5-5.1)
[2024-11-01 06:33] LABS: Anion Gap 13 (5-15); Calcium 9.8 mg/dL (8.7-10.4); Carbon Dioxide 24 mmol/L (20-31)
[2024-11-01 06:38] LABS: BUN/Creatinine Ratio 8.1 (10.0-20.0); Sodium 129 mmol/L (136-145)
[2024-11-01 06:39] LABS: Blood Urea Nitrogen 47 mg/dL (9-23); Chloride 92 mmol/L (98-107); Glucose 247 mg/dL (74-106)
--- NOTE | 2024-11-01 09:33 | DVHPN2 ---
Reviewed: Care Plan, H&P, Labs, Medications, Previous Orders, Radiology Changes from previous H/P or p: No Changes Objective Vitals Vital Signs Date Time Temp Pulse Resp B/P (MAP) Pulse Ox O2 Delivery O2 Flow Rate FiO2 11/01/24 08:00 84 11/01/24 06:29 18 148/69 11/01/24 05:00 98.1 95 98.1 10/31/24 20:00 Oxymizer 5 N/A Intake/Output Intake and Output 11/01/24 07:00 Intake Total 1586.15 ml Output Total 2450 ml Balance -863.85 ml Intake Oral 1370 ml IV Total 216.15 ml Output Urine Total 2450 ml Medications Current Medications Medications Dose Ordered Sig/Olinda Route Start Time Stop Time Status Last Admin Dose Admin Vancomycin HCl 0 ml @ 0 mls/hr UD IV 10/13/24 23:30 Cancel Atorvastatin Calcium 40 mg HS PO 10/14/24 22:00 10/31/24 22:36 40 MG Amlodipine Besylate 5 mg DAILY PO 10/14/24 10:00 10/31/24 10:27 5 MG Diagnostic Test (Pha) 1 strip Q6HR 10/14/24 00:00 11/01/24 06:07 1 STRIP Insulin Human Regular Q6HR SC 10/14/24 00:00 11/01/24 06:08 4 UNITS Dextrose 50 ml UD PRN IV 10/13/24 23:30 Ondansetron HCl 4 mg Q4HP PRN IV 10/13/24 23:30 11/01/24 05:58 4 MG Acetaminophen 650 mg Q6HP PRN PO 10/13/24 23:30 10/26/24 04:21 650 MG Nitroglycerin 0.4 mg Q5MINP PRN SL 10/13/24 23:30 Morphine Sulfate 2 mg Q30M PRN IV 10/13/24 23:30 Hold Aspirin 81 mg DAILY PO 10/15/24 10:00 10/31/24 10:27 81 MG Heparin Sodium (Porcine) 5,000 units Q12HR SC 10/15/24 10:00 10/31/24 22:50 5,000 UNITS Furosemide 80 mg BIDD IV 10/16/24 07:30 10/31/24 18:37 80 MG Epoetin Bran-epbx 8,000 unit TUTHSA@2100 UT 10/21/24 19:45 10/30/24 22:47 8,000 UNIT Vancomycin HCl 0 ml @ 0 mls/hr UD IV 10/22/24 21:30 Sodium Chloride 10 ml QSHIFT@10,22 IV 10/24/24 22:00 10/31/24 22:35 10 ML Levofloxacin/ Dextrose 100 ml @ 100 mls/hr Q48H IV 10/24/24 20:45 UNV Cefpodoxime Proxetil 200 mg BID PO 10/25/24 22:00 UNV Cefpodoxime Proxetil 200 mg DAILY PO 10/25/24 21:00 10/31/24 10:27 200 MG Dopamine HCl/ Dextrose 250 ml @ 9.825 mls/ hr Q24H IV 10/26/24 13:00 11/01/24 02:07 9.825 MLS/HR Metoprolol Tartrate 5 mg Q6HP PRN IV 10/29/24 15:00 Gentamicin Sulfate 1 drop Q4HR LEFTEYE 10/30/24 04:30 11/01/24 05:58 1 DROP Hydromorphone HCl 2 mg Q4HR IV 10/30/24 04:30 11/01/24 05:59 2 MG Laboratory Results Laboratory Tests 10/31/24 05:13 11/01/24 05:50 Chemistry Test 11/01/24 05:50 Calcium Level 9.8 mg/dL (8.7-10.4) Urinalysis Test 10/13/24 22:00 10/14/24 17:27 Urine Color Yellow (Yellow) Urine Clarity Turbid (Clear) H Urine pH 6.0 (5.0-9.0) Urine Specific [place] 1.020 (1.001-1.035) Urine Protein 3+ (Negative) H Urine Ketones Negative (Negative) Urine Blood 3+ /uL (Negative) H Urine Nitrite Negative (Negative) Urine Bilirubin Negative (Negative) Urine Urobilinogen Normal mg/dL (Negative) Urine Leukocyte Esterase Negative /uL (Negative) Urine RBC 2 /hpf (0 - 3) Urine WBC 4 /hpf (0 - 3) Urine Squamous Epithelial Cells Few /hpf (<5) Urine Amorphous Crystals Few /hpf (None Seen) Urine Bacteria Mod /hpf (None Seen) H Urine Glucose 4+ mg/dL (Normal) H Urine Creatinine 77.85 mg/dL (30.0-125.0) Urine Sodium 24 mmol/L (40-220) L Urine Total Protein 647.5 mg/dL (1-14) H Microbiology Microbiology Date/Time Source Procedure Growth Status 10/20/24 09:35 Blood Blood Culture - Final NO GROWTH AFTER 5 DAYS OF INCUBATION. Complete 10/15/24 13:47 Nose MRSA Screen - Final Complete 10/13/24 22:00 Voided Urine Urine Culture - Final Complete Labs and/or images reviewed: Labs reviewed by me, Image(s) reviewed by me Assessment/Plan Assessment/Plan Septic shock with elevated white count altered mental status: Bacteremia with MSSA, ID consult by Dr. Phong Richmond appreciated, patient on vancomycin Syncope possibly secondary to sepsis: CT head negative, chest x-ray negative, C- spine CT negative, echocardiogram 55 percent ejection fraction, carotid ultrasound negative, Neurology consult appreciated EEG normal, Cardiology consult by Dr. Diaz appreciated, no further cardiac workup Non STEMI type 2 secondary to sepsis, echo 10/14/2024 shows 55 % ejection fraction Acute kidney injury hemodynamically mediated; multifactorial, BUN creatinine 44 and 2.61 at the time of admission, now worsening 68/6.94, closely following, patient received hemodialysis on 10/16/2024, bicarb drip discontinued Lasix continued Left foot infection with MSSA: Continue nafcillin Acute metabolic encephalopathy Elevated D-dimer 5.50: DVT ruled out , PE ruled out Chronic Left foot infection Consult for Dr. Watts appreciated, MRI left foot shows no osteomyelitis of the 1st metatarsal stump or abscess History of left 1st toe amputation Left knee x-ray negative Chronic calcaneus fracture right foot Hepatomegaly Hypertension Obstructive Sleep apnea: CPAP Uncontrolled diabetes: Insulin sliding scale Hypercholesterolemia Hypothyroidism History of CVA Chronic calcaneal fracture right foot History of coronary artery disease Diabetic medial left foot ulcer: Wound consult, wound cultures growing MSSA on nafcillin Right IJ dialysis cath in place Moderate malnutrition Pain management: On Dilaudid IV Time spent 65 minutes Continue current management healthcare advisory services manager working on arranging outpatient dialysis chart time Had hemodialysis today 11-01-24 Plan discussed with: Patient Date of Service: Nov 01, 2024 Billing Provider: ROWENA MEREDITH MD Common Visit Codes: [id number] CARE 30-74 MIN ROWENA MEREDITH MD Nov 01, 2024 09:33
--- NOTE | 2024-11-01 11:21 | DVHPN2 ---
Progress Note - Dictate Date Seen: Nov 01, 2024 Medical Necessity Reason Pt with a Central, PICC or Fol: Yes The following are medically ne: [place] Catheter Subjective HD nurse at bedside vital signs Vital Sign Date Time Temp Pulse Resp B/P (MAP) Pulse Ox O2 Delivery O2 Flow Rate FiO2 11/01/24 10:08 91 16 125/76 11/01/24 09:30 97.5 100 97.5 10/31/24 20:00 Oxymizer 5 N/A Total Intake and Output 10/31/24 10/31/24 11/01/24 15:00 23:00 07:00 Intake Total 236 ml 981.9 ml 368.25 ml Output Total 1200 ml 1250 ml Balance 236 ml -218.1 ml -881.75 ml medications Current Medications Medications Dose Ordered Sig/Olinda Route Start Time Stop Time Status Last Admin Dose Admin Vancomycin HCl 0 ml @ 0 mls/hr UD IV 10/13/24 23:30 Cancel Atorvastatin Calcium 40 mg HS PO 10/14/24 22:00 10/31/24 22:36 40 MG Amlodipine Besylate 5 mg DAILY PO 10/14/24 10:00 11/01/24 09:39 5 MG Diagnostic Test (Pha) 1 strip Q6HR 10/14/24 00:00 11/01/24 06:07 1 STRIP Insulin Human Regular Q6HR SC 10/14/24 00:00 11/01/24 06:08 4 UNITS Dextrose 50 ml UD PRN IV 10/13/24 23:30 Ondansetron HCl 4 mg Q4HP PRN IV 10/13/24 23:30 11/01/24 09:40 4 MG Acetaminophen 650 mg Q6HP PRN PO 10/13/24 23:30 10/26/24 04:21 650 MG Nitroglycerin 0.4 mg Q5MINP PRN SL 10/13/24 23:30 Morphine Sulfate 2 mg Q30M PRN IV 10/13/24 23:30 Hold Aspirin 81 mg DAILY PO 10/15/24 10:00 11/01/24 09:39 81 MG Heparin Sodium (Porcine) 5,000 units Q12HR SC 10/15/24 10:00 11/01/24 09:40 5,000 UNITS Furosemide 80 mg BIDD IV 10/16/24 07:30 10/31/24 18:37 80 MG Epoetin Bran-epbx 8,000 unit TUTHSA@2100 SC 10/21/24 19:45 10/30/24 22:47 8,000 UNIT Vancomycin HCl 0 ml @ 0 mls/hr UD IV 10/22/24 21:30 Sodium Chloride 10 ml QSHIFT@10,22 IV 10/24/24 22:00 11/01/24 09:38 10 ML Levofloxacin/ Dextrose 100 ml @ 100 mls/hr Q48H IV 10/24/24 20:45 UNV Cefpodoxime Proxetil 200 mg BID PO 10/25/24 22:00 UNV Cefpodoxime Proxetil 200 mg DAILY PO 10/25/24 21:00 10/31/24 10:27 200 MG Dopamine HCl/ Dextrose 250 ml @ 9.825 mls/ hr Q24H IV 10/26/24 13:00 11/01/24 02:07 9.825 MLS/HR Metoprolol Tartrate 5 mg Q6HP PRN IV 10/29/24 15:00 Gentamicin Sulfate 1 drop Q4HR LEFTEYE 10/30/24 04:30 11/01/24 09:39 1 DROP Hydromorphone HCl 2 mg Q4HR IV 10/30/24 04:30 11/01/24 09:38 2 MG objective Morbidly obese white male Breathing with high-flow oxygen Mild distress with shortness of breath Abdomen is soft Large and distended Bilateral 1+ pitting edema Left toe amputations with wound wrapped in gauze laboratory and microbiology Laboratory Tests 11/01/24 05:50 10/31/24 05:13 Test 11/01/24 05:50 Range/Units Serum Glucose 247 H 74-106 mg/dL Assessment/Plan Acute kidney injury hemodynamically mediated; multifactorial Baseline renal function is normal Sepsis due to bacteremia; STaph Urinary tract infection Syncope Obstructive sleep apnea severe proteinuria likely due to Dm2 EF 55% grade 1 diastolic Hd treatment today Ultrasound of the kidney was unremarkable Cultures and antibiotics , echo does not report vegetations Avoid hypotension Hd chairtime pending Dietary Evaluation Review Comments: 1. Consider adding nephrovite 2. Consider adding renal to diet restrictions 3. Consider adding Nepro shake if pt with low PO intake Expected Outcomes/Goals: 1. Pt will consume >75% of estimated needs within 3-5 days Plan discussed with: Patient RAJENDRA SHANNON MD Nov 01, 2024 11:21
[2024-11-01] MEDS: VANCOMYCIN 500mg/100mL 100 ML IV ONE (17:37)
[2024-11-01] MEDS: EPOETIN ALFA-EPBX 10,000 UNIT/1ML VIAL SC ONE (20:38)
--- NOTE | 2024-11-01 22:28 | DVHPN2 ---
Consult Progress Note Date Seen: Nov 02, 2024 Subjective Patient reports: Feels better (improved to 3L NC) Objective vital signs Vital Sign Date Time Temp Pulse Resp B/P (MAP) Pulse Ox O2 Delivery O2 Flow Rate FiO2 11/01/24 21:15 71 18 142/75 11/01/24 21:03 98.1 95 98.1 11/01/24 08:00 Nasal Cannula* 4 36 Total Intake and Output 10/31/24 10/31/24 11/01/24 15:00 23:00 07:00 Intake Total 236 ml 981.9 ml 368.25 ml Output Total 1200 ml 1250 ml Balance 236 ml -218.1 ml -881.75 ml medications Current Medications Medications Dose Ordered Sig/Olinda Route Start Time Stop Time Status Last Admin Dose Admin Vancomycin HCl 0 ml @ 0 mls/hr UD IV 10/13/24 23:30 Cancel Atorvastatin Calcium 40 mg HS PO 10/14/24 22:00 11/01/24 21:13 40 MG Amlodipine Besylate 5 mg DAILY PO 10/14/24 10:00 11/01/24 09:39 5 MG Diagnostic Test (Pha) 1 strip Q6HR 10/14/24 00:00 11/01/24 17:47 1 STRIP Insulin Human Regular Q6HR SC 10/14/24 00:00 11/01/24 17:39 4 UNITS Dextrose 50 ml UD PRN IV 10/13/24 23:30 Ondansetron HCl 4 mg Q4HP PRN IV 10/13/24 23:30 11/01/24 21:25 4 MG Acetaminophen 650 mg Q6HP PRN PO 10/13/24 23:30 10/26/24 04:21 650 MG Nitroglycerin 0.4 mg Q5MINP PRN SL 10/13/24 23:30 Morphine Sulfate 2 mg Q30M PRN IV 10/13/24 23:30 Hold Aspirin 81 mg DAILY PO 10/15/24 10:00 11/01/24 09:39 81 MG Heparin Sodium (Porcine) 5,000 units Q12HR SC 10/15/24 10:00 11/01/24 21:19 5,000 UNITS Furosemide 80 mg BIDD IV 10/16/24 07:30 11/01/24 17:36 80 MG Epoetin Bran-epbx 8,000 unit TUTHSA@2100 SC 10/21/24 19:45 10/30/24 22:47 8,000 UNIT Vancomycin HCl 0 ml @ 0 mls/hr UD IV 10/22/24 21:30 Sodium Chloride 10 ml QSHIFT@10,22 IV 10/24/24 22:00 11/01/24 21:15 10 ML Levofloxacin/ Dextrose 100 ml @ 100 mls/hr Q48H IV 10/24/24 20:45 UNV Cefpodoxime Proxetil 200 mg BID PO 10/25/24 22:00 UNV Cefpodoxime Proxetil 200 mg DAILY PO 10/25/24 21:00 11/01/24 13:35 200 MG Dopamine HCl/ Dextrose 250 ml @ 9.825 mls/ hr Q24H IV 10/26/24 13:00 11/01/24 02:07 9.825 MLS/HR Metoprolol Tartrate 5 mg Q6HP PRN IV 10/29/24 15:00 Gentamicin Sulfate 1 drop Q4HR LEFTEYE 10/30/24 04:30 11/01/24 21:16 1 DROP Hydromorphone HCl 2 mg Q4HR IV 10/30/24 04:30 11/01/24 21:15 2 MG Physical Exam: General: Patient is in general acute distress Neck: Supple. No masses. HEENT: PERRL. Normal lids and conjunctiva. Moist mucous membranes. Oropharynx without lesions, exudates, or excessive erythema. Normal appearance of the external aspects of the nose and ears. Heart: Regular rhythm, normal rate. No murmur. No lower extremity edema. Lungs: Normal respiratory effort. Clear to auscultation bilaterally. No wheezes. No crackles. Abdomen: Soft. Non-tender. Non-distended. No masses or abdominal hernia. MSK: No digital cyanosis. Normal strength and tone in all 4 limbs. Skin: Warm and dry, no rashes. Neuro: No facial droop or slurred speech. Extraocular movements intact. Sensation intact to soft touch in all 4 limbs. laboratory and microbiology Laboratory Tests 11/01/24 05:50 10/31/24 05:13 Test 11/01/24 05:50 Range/Units Serum Glucose 247 H 74-106 mg/dL Problem List/Assessment/Plan Problem List/Assessment/Plan ID Problem List: - MSSA bacteremia - Right foot cellulitis - Bilateral non-healing diabetic foot ulcers - Uncontrolled diabetes mellitus - Acute on chronic kidney disease - Morbid obesity - Dyslipidemia - Hypertension - History of stroke - Hypoxia - Severe sepsis - Lactic acidosis - Altered mental status - Hepatic steatosis - Possible need for further debridement Assessment This is a 69-year-old male with a past medical history of uncontrolled diabetes mellitus, hypertension, chronic kidney disease (baseline creatinine ~2), dyslipidemia, stroke, thyroid disease, morbid obesity, and multiple chronic non- healing diabetic foot ulcers on both feet. He has undergone prior amputations of the left and right great toes. The patient presents with an unwitnessed syncopal episode in the bathroom lasting approximately 4 hours. He denies any pre- syncopal symptoms, shortness of breath, fevers, or chills prior to the episode. On admission, the patient was febrile to 102.8F and hypoxic, requiring supplemental oxygen. Examination revealed right lower extremity cellulitis extending from the ankle to the great toe with drainage from a 1.1 cm ulcer. Laboratory findings include significant leukocytosis (WBC 36), anemia (Hb 12.2), worsening renal function (creatinine increased from baseline 2.61 to 2.7, BUN elevated to 89-92), hyperglycemia (glucose 279), and elevated lactic acid (4.5). Blood cultures grew MSSA on the 14th, and wound cultures from the right great toe grew MSSA on the 13th. Imaging studies showed right maxillary sinus opacification concerning for acute sinusitis. Left foot CT demonstrated mild soft tissue swelling without abscess or osteomyelitis. Right foot MRI indicated soft tissue inflammatory changes consistent with possible cellulitis but no abscess or osteomyelitis. The patient developed progressive hypoxia requiring up to 10 liters of supplemental oxygen. A V/Q scan ruled out pulmonary embolism. He underwent dialysis for worsening renal failure and volume overload, with placement of a dialysis catheter. 10/20:Blood cultures negative for 24 hours , not having an intolerance to nepsillin 10/21: chest x-ray shows pulmonary vascular congestion that is unchanged , on 10 liters nasal canula, blood cultures have no growth to date after 48 hours 10/22: White count is going up despite being on appropriate antibiotic therapy , possibly rellated to larger bacteria than anticipated or patients obesity with a BMI of 41. 10/24: white count is up to 18.8 despite switching antibiotics , at this point suspect patient has suppresed bacteria that has not been caught on cultures 10/25: Blood cultures remain negative , white count is now 14.7 10/28: on 3lNC 10/29; leukocytosis is improving on current regimen , awaiting for patients hypoxia to improve , likely related to volume overload 10/31: increased UOP 11/01: on 3LNC Plan: - continue oral cefpodoxime 200 milligrams daily for 4 weeks, EOT date is 11/22/24 - dose of vancomycin has been therapeutic - Continue vancomycin Iv for 4 weeks to be given with dialysis at dialysis center , 1.5g MWF, EOT date is 11/22/24 - If white count continues to go up or patient demonstrates other signs of sepsis recommend repeating blood cultures , hold off for now - Renal Function: - Monitor renal function closely. - Avoid nephrotoxic medications. - prior to placement of permanent dialysis catheter will need to ensure clearance of bacteremia - Infectious Disease and Debridement: - defer to podiatry for potential further debridement of the right foot infection. - will fu on blood cultures - agree w/ gentamicin cream from chronic red eye irritation - Diabetes Management: - Optimize glycemic control with insulin therapy. keep BG<180 - Monitor blood glucose levels closely. - Respiratory Support: - Continue supplemental oxygen therapy. - Monitor oxygen saturation and adjust oxygen delivery as needed. - Sepsis Management: - Monitor lactic acid levels. - Provide appropriate supportive care for severe sepsis. Wound Care: - Continue wound care for bilateral foot ulcers. - Coordinate with wound care specialists and home health services. Other Considerations: - Address morbid obesity with nutritional support and weight management strategies. - Monitor liver function tests due to hepatic steatosis. Plan discussed with: Patient Dietary Evaluation Review Comments: 1. Consider adding nephrovite 2. Consider adding renal to diet restrictions 3. Consider adding Nepro shake if pt with low PO intake Expected Outcomes/Goals: 1. Pt will consume >75% of estimated needs within 3-5 days KINGS ALVAREZ MD Nov 01, 2024 22:28
--- NOTE | 2024-11-01 22:32 | DVHPN2 ---
Progress Note - Dictate Date Seen: Nov 01, 2024 Medical Necessity Reason Pt with a Central, PICC or Fol: Yes The following are medically ne: [place] Catheter Subjective Mr. Escoto is a 69 years old right-handed gentleman with a history of hypertension, diabetes, dyslipidemia, hypothyroidism, kidney stone, obesity, sleep apnea, he was brought to the [facility] on 10/13/2024 with a chief company of syncopal event. I have seen and examined the patient, I have talked to his nurse, he has alert and oriented x3, he reports doing fine, the weakness in the lower extremity has had improvement, he was able to stand He reports having intermittent sharp/burning pain in the feet for many years, and he types of medication, possibly pregabalin, worked but inadequate, Otherwise no new complaints Urinalysis, 10/13/2024: WBC: 4, urine leukocyte esterase: Negative UDS, 10/30/2024: Negative ABG, 10/13/2024, PO2: 70.3 WBC/HB/PLT/MCV, 10/13/2024: 36/12.2/266/78.5 PT/INR/PTT, 10/13/2024: 13.1/1.26/34.4 BUN/CR, 10/14/2024: 46/3.36 D-dimer, 10/13/2024: 5.5 HGB A1c, 10/14/2024: 9.2 Vitamin B12, 10/14/2024: 446 TBI/AST/ALT/AP, 10/14/2024: 1/510/145/125 CT head, 10/13/2024: 1. No acute intracranial abnormality. 2. Mild chronic microvascular ischemic change. 3. Chronic lacunar infarct in the right thalamus 4. Paranasal sinus mucosal thickening and near-complete opacification of the right maxillary sinus. Correlate clinically for acute sinusitis CT TSP, 10/15/24: 1. There is no acute osseous abnormality in the thoracic spine. 2. Exaggerated thoracic kyphosis with multilevel degenerative disc changes. There is no large posterior classic disc herniation. There is no spinal canal or obvious bony foraminal stenosis. 3. Bilateral pleural effusions with airspace disease versus atelectasis in the posterior lower lobes CT, left foot, 10/14/2024: 1. Moderate focal soft tissue swelling in the medial plantar mid/ forefoot at the level of the amputated proximal 1st metatarsal . This could be postoperative or phlegmon. No well-formed fluid collection at this time to suggest abscess. 2. Prior amputation of the 1st digit at the level of the proximal metatarsal. 3. No evidence of acute fracture or osteomyelitis. 4. Moderate degenerative changes of the midfoot with subchondral lucencies and joint space narrowing MRI Head, 09/08/2024: 1. No evidence of acute intracranial pathology. 2. Mild diffuse volume loss with minimal chronic microvascular ischemic disease in the periventricular and deep white matter. 3. Old lacunar infarct in the right thalamus. vital signs Vital Sign Date Time Temp Pulse Resp B/P (MAP) Pulse Ox O2 Delivery O2 Flow Rate FiO2 11/01/24 21:15 71 18 142/75 11/01/24 21:03 98.1 95 98.1 11/01/24 08:00 Nasal Cannula* 4 36 Total Intake and Output 10/31/24 10/31/24 11/01/24 15:00 23:00 07:00 Intake Total 236 ml 981.9 ml 368.25 ml Output Total 1200 ml 1250 ml Balance 236 ml -218.1 ml -881.75 ml medications Current Medications Medications Dose Ordered Sig/Olinda Route Start Time Stop Time Status Last Admin Dose Admin Vancomycin HCl 0 ml @ 0 mls/hr UD IV 10/13/24 23:30 Cancel Atorvastatin Calcium 40 mg HS PO 10/14/24 22:00 11/01/24 21:13 40 MG Amlodipine Besylate 5 mg DAILY PO 10/14/24 10:00 11/01/24 09:39 5 MG Diagnostic Test (Pha) 1 strip Q6HR 10/14/24 00:00 11/01/24 17:47 1 STRIP Insulin Human Regular Q6HR SC 10/14/24 00:00 11/01/24 17:39 4 UNITS Dextrose 50 ml UD PRN IV 10/13/24 23:30 Ondansetron HCl 4 mg Q4HP PRN IV 10/13/24 23:30 11/01/24 21:25 4 MG Acetaminophen 650 mg Q6HP PRN PO 10/13/24 23:30 10/26/24 04:21 650 MG Nitroglycerin 0.4 mg Q5MINP PRN SL 10/13/24 23:30 Morphine Sulfate 2 mg Q30M PRN IV 10/13/24 23:30 Hold Aspirin 81 mg DAILY PO 10/15/24 10:00 11/01/24 09:39 81 MG Heparin Sodium (Porcine) 5,000 units Q12HR SC 10/15/24 10:00 11/01/24 21:19 5,000 UNITS Furosemide 80 mg BIDD IV 10/16/24 07:30 11/01/24 17:36 80 MG Epoetin Bran-epbx 8,000 unit TUTHSA@2100 [place] 10/21/24 19:45 10/30/24 22:47 8,000 UNIT Vancomycin HCl 0 ml @ 0 mls/hr UD IV 10/22/24 21:30 Sodium Chloride 10 ml QSHIFT@10,22 IV 10/24/24 22:00 11/01/24 21:15 10 ML Levofloxacin/ Dextrose 100 ml @ 100 mls/hr Q48H IV 10/24/24 20:45 UNV Cefpodoxime Proxetil 200 mg BID PO 10/25/24 22:00 UNV Cefpodoxime Proxetil 200 mg DAILY PO 10/25/24 21:00 11/01/24 13:35 200 MG Dopamine HCl/ Dextrose 250 ml @ 9.825 mls/ hr Q24H IV 10/26/24 13:00 11/01/24 02:07 9.825 MLS/HR Metoprolol Tartrate 5 mg Q6HP PRN IV 10/29/24 15:00 Gentamicin Sulfate 1 drop Q4HR LEFTEYE 10/30/24 04:30 11/01/24 21:16 1 DROP Hydromorphone HCl 2 mg Q4HR IV 10/30/24 04:30 11/01/24 21:15 2 MG objective General: the patient is well developed and nourished. No acute distress. Hammertoes in both feet. Status post left big toe amputation Diffuse tenderness to palpation in the back, extremities MENTAL STATUS: sUBJECTIVE SPEECH, LANGUAGE, HIGHER CORTICAL FUNCTION: no aphasia or dysathria. CRANIAL NERVES: Pupils are equal, round and reactive. EOMs full and conjugate. No nystagmus. Facial sensation intact in all three divisions bilaterally. Mandibular strength intact. Facial muscles symmetrical and strength intact. SENSATION: Sensation to touch and pinprick is diminished distally in the lower extremities, upper extremities, and central portion of the stomach wall. There was no sensory level MOTOR: Normal tone in the upper and lower extremity. Normal muscle bulk. No fasciculations. No abnormal movements or posturing. Muscle strength of the major groups in the upper extremities is 4/5. Muscle strength of the major groups in the lower extremities is: more than 3-4/5, positive weaker in the left leg REFLEXES: Deep tendon reflexes are symmetrically diminished. No pathological reflexes. CEREBELLAR/COORDINATION: Finger to nose is five bilaterally bilaterally. GAIT/STATION: deferred. laboratory and microbiology Laboratory Tests 11/01/24 05:50 10/31/24 05:13 Test 11/01/24 05:50 Range/Units Serum Glucose 247 H 74-106 mg/dL Problem List Fall Syncope Stroke Partial complex seizure Chronic stroke Bilateral lower extremity weakness, improving Sleep apnea Cellulitis Polyneuropathy Intermittent pain in the feet, likely secondary to polyneuropathy Assessment/Plan Monitoring Supportive treatment Telemetry IV antibiotics Aspirin 162 mg daily Lipitor 40 mg daily Try pregabalin 50 mg bid and escalation CPAP the hospital Foot care Daily foot inspection He has been advised not drive until cleared DMV report in the chart More recommendation per clinical course This medical document was created using an electronic medical record system with [employer] computerized dictation system. Although this document has been carefully reviewed, there may still be some phonetic and typographical errors. These areas are purely typographical due to imperfections of the software programs, and do not reflect any compromise in the patient's medical care. Prognosis poor Dietary Evaluation Review Comments: 1. Consider adding nephrovite 2. Consider adding renal to diet restrictions 3. Consider adding Nepro shake if pt with low PO intake Expected Outcomes/Goals: 1. Pt will consume >75% of estimated needs within 3-5 days Plan discussed with: Patient, Other SOLOMON KRISHNAN MD Nov 01, 2024 22:32
[2024-11-02 05:14] VITALS: BP 153/77; PULSE 62; RESP 16; TEMP 98.1; O2SAT 100
[2024-11-02 07:11] LABS: Basophils # (auto) 0.1 10 ^3/uL (0-0.2); Basophils % (auto) 1.1 % (0.0-2.0); Eosinophils # (auto) 0.3 10 ^3/uL (0-0.8); Eosinophils % (auto) 3.6 % (0.0-7.0); Hematocrit 29.4 % (41.0-53.0); Hemoglobin 9.9 g/dL (13.5-17.5); Lymphocytes # (auto) 1.5 10 ^3/uL (0.4-5.4); Lymphocytes % (auto) 16.5 % (10.0-50.0); Mean Corpuscular Hemoglobin 27.1 pg (28.0-32.0); Mean Corpuscular Hgb Conc. 33.7 g/dL (32.0-36.0); Mean Corpuscular Volume 80.2 fL (80.0-100.0); Monocytes # (auto) 0.7 10 ^3/uL (0-1.3); Monocytes % (auto) 7.8 % (0.0-12.0); Neutrophils # (auto) 6.7 10 ^3/uL (1.6-8.6); Nucleated Red Blood Cells % 0.1 %; Platelet Count (auto) 324 10^3/uL (140-450); Red Blood Cells 3.67 10^6/uL (4.5-5.90); Red Cell Distribution Width 17.8 % (11.8-14.3); White Blood Cell 9.4 10^3/uL (4.4-10.8)
[2024-11-02 07:21] LABS: Anion Gap 9 (5-15); Carbon Dioxide 30 mmol/L (20-31); Chloride 91 mmol/L (98-107); Potassium 3.7 mmol/L (3.5-5.1); Sodium 130 mmol/L (136-145)
[2024-11-02 07:23] LABS: Calcium 9.7 mg/dL (8.7-10.4)
[2024-11-02 07:27] LABS: BUN/Creatinine Ratio 9.1 (10.0-20.0); Blood Urea Nitrogen 47 mg/dL (9-23); Glucose 206 mg/dL (74-106)
[2024-11-02 07:40] VITALS: PULSE 63
[2024-11-02 08:49] VITALS: BP 128/68; PULSE 60; RESP 17; TEMP 98; O2SAT 100
--- NOTE | 2024-11-02 09:47 | DVHPN2 ---
Progress Note - Dictate Date Seen: Nov 02, 2024 Medical Necessity Reason Pt with a Central, PICC or Fol: Yes The following are medically ne: Medina Catheter Subjective s/p HD yesterday via TC vital signs Vital Sign Date Time Temp Pulse Resp B/P (MAP) Pulse Ox O2 Delivery O2 Flow Rate FiO2 11/02/24 08:49 98.0 60 17 128/68 (88) 100 98.0 11/01/24 20:00 Nasal Cannula* 3 32 Total Intake and Output 11/01/24 11/01/24 11/02/24 15:00 23:00 07:00 Intake Total 1217.84 ml 650 ml Output Total 450 ml 900 ml Balance 767.84 ml -250 ml medications Current Medications Medications Dose Ordered Sig/Olinda Route Start Time Stop Time Status Last Admin Dose Admin Vancomycin HCl 0 ml @ 0 mls/hr UD IV 10/13/24 23:30 Cancel Atorvastatin Calcium 40 mg HS PO 10/14/24 22:00 11/01/24 21:13 40 MG Amlodipine Besylate 5 mg DAILY PO 10/14/24 10:00 11/01/24 09:39 5 MG Diagnostic Test (Pha) 1 strip Q6HR 10/14/24 00:00 11/02/24 05:25 1 STRIP Insulin Human Regular Q6HR SC 10/14/24 00:00 11/02/24 05:36 6 UNITS Dextrose 50 ml UD PRN IV 10/13/24 23:30 Ondansetron HCl 4 mg Q4HP PRN IV 10/13/24 23:30 11/02/24 05:51 4 MG Acetaminophen 650 mg Q6HP PRN PO 10/13/24 23:30 10/26/24 04:21 650 MG Nitroglycerin 0.4 mg Q5MINP PRN SL 10/13/24 23:30 Morphine Sulfate 2 mg Q30M PRN IV 10/13/24 23:30 Hold Aspirin 81 mg DAILY PO 10/15/24 10:00 11/01/24 09:39 81 MG Heparin Sodium (Porcine) 5,000 units Q12HR SC 10/15/24 10:00 11/01/24 21:19 5,000 UNITS Furosemide 80 mg BIDD IV 10/16/24 07:30 11/02/24 05:28 80 MG Epoetin Bran-epbx 8,000 unit TUTHSA@2100 SC 10/21/24 19:45 10/30/24 22:47 8,000 UNIT Vancomycin HCl 0 ml @ 0 mls/hr UD IV 10/22/24 21:30 Sodium Chloride 10 ml QSHIFT@10,22 IV 10/24/24 22:00 11/01/24 21:15 10 ML Levofloxacin/ Dextrose 100 ml @ 100 mls/hr Q48H IV 10/24/24 20:45 UNV Cefpodoxime Proxetil 200 mg BID PO 10/25/24 22:00 UNV Cefpodoxime Proxetil 200 mg DAILY PO 10/25/24 21:00 11/01/24 13:35 200 MG Dopamine HCl/ Dextrose 250 ml @ 9.825 mls/ hr Q24H IV 10/26/24 13:00 11/01/24 02:07 9.825 MLS/HR Metoprolol Tartrate 5 mg Q6HP PRN IV 10/29/24 15:00 Gentamicin Sulfate 1 drop Q4HR LEFTEYE 10/30/24 04:30 11/02/24 01:41 1 DROP Hydromorphone HCl 2 mg Q4HR IV 10/30/24 04:30 11/02/24 05:52 2 MG Pregabalin 25 mg BID PO 11/02/24 10:00 objective Morbidly obese white male Breathing with high-flow oxygen Mild distress with shortness of breath Abdomen is soft Large and distended Bilateral 1+ pitting edema Left toe amputations with wound wrapped in gauze laboratory and microbiology Laboratory Tests 11/02/24 06:27 Test 11/02/24 06:27 Range/Units Serum Glucose 206 H 74-106 mg/dL Assessment/Plan Acute kidney injury hemodynamically mediated; multifactorial Baseline renal function is normal Sepsis due to bacteremia; STaph Urinary tract infection Syncope Obstructive sleep apnea severe proteinuria likely due to Dm2 EF 55% grade 1 diastolic Hd treatment today Ultrasound of the kidney was unremarkable Nge BCX 10/20 echo does not report vegetations Avoid hypotension Hd chairtime pending outpatient recommend biopsy of kidney to determine Maverick prognosis TOV if ambulatory Dietary Evaluation Review Comments: 1. Consider adding nephrovite 2. Consider adding renal to diet restrictions 3. Consider adding Nepro shake if pt with low PO intake Expected Outcomes/Goals: 1. Pt will consume >75% of estimated needs within 3-5 days Plan discussed with: Patient RAJENDRA SHANNON MD Nov 02, 2024 09:47
--- NOTE | 2024-11-02 09:58 | DVHPN2 ---
Reviewed: Care Plan, H&P, Labs, Medications, Previous Orders, Radiology Changes from previous H/P or p: No Changes Objective Vitals Vital Signs Date Time Temp Pulse Resp B/P (MAP) Pulse Ox O2 Delivery O2 Flow Rate FiO2 11/02/24 08:49 98.0 60 17 128/68 (88) 100 98.0 11/01/24 20:00 Nasal Cannula* 3 32 Intake/Output Intake and Output 11/02/24 07:00 Intake Total 1867.84 ml Output Total 1350 ml Balance 517.84 ml Intake Oral 1650 ml IV Total 217.84 ml Output Urine Total 1350 ml Medications Current Medications Medications Dose Ordered Sig/Olinda Route Start Time Stop Time Status Last Admin Dose Admin Vancomycin HCl 0 ml @ 0 mls/hr UD IV 10/13/24 23:30 Cancel Atorvastatin Calcium 40 mg HS PO 10/14/24 22:00 11/01/24 21:13 40 MG Amlodipine Besylate 5 mg DAILY PO 10/14/24 10:00 11/01/24 09:39 5 MG Diagnostic Test (Pha) 1 strip Q6HR 10/14/24 00:00 11/02/24 05:25 1 STRIP Insulin Human Regular Q6HR SC 10/14/24 00:00 11/02/24 05:36 6 UNITS Dextrose 50 ml UD PRN IV 10/13/24 23:30 Ondansetron HCl 4 mg Q4HP PRN IV 10/13/24 23:30 11/02/24 05:51 4 MG Acetaminophen 650 mg Q6HP PRN PO 10/13/24 23:30 10/26/24 04:21 650 MG Nitroglycerin 0.4 mg Q5MINP PRN SL 10/13/24 23:30 Morphine Sulfate 2 mg Q30M PRN IV 10/13/24 23:30 Hold Aspirin 81 mg DAILY PO 10/15/24 10:00 11/01/24 09:39 81 MG Heparin Sodium (Porcine) 5,000 units Q12HR SC 10/15/24 10:00 11/01/24 21:19 5,000 UNITS Furosemide 80 mg BIDD IV 10/16/24 07:30 11/02/24 05:28 80 MG Epoetin Bran-epbx 8,000 unit TUTHSA@2100 [place] 10/21/24 19:45 10/30/24 22:47 8,000 UNIT Vancomycin HCl 0 ml @ 0 mls/hr UD IV 10/22/24 21:30 Sodium Chloride 10 ml QSHIFT@10,22 IV 10/24/24 22:00 11/01/24 21:15 10 ML Levofloxacin/ Dextrose 100 ml @ 100 mls/hr Q48H IV 10/24/24 20:45 UNV Cefpodoxime Proxetil 200 mg BID PO 10/25/24 22:00 UNV Cefpodoxime Proxetil 200 mg DAILY PO 10/25/24 21:00 11/01/24 13:35 200 MG Metoprolol Tartrate 5 mg Q6HP PRN IV 10/29/24 15:00 Gentamicin Sulfate 1 drop Q4HR LEFTEYE 10/30/24 04:30 11/02/24 01:41 1 DROP Hydromorphone HCl 2 mg Q4HR IV 10/30/24 04:30 11/02/24 05:52 2 MG Pregabalin 25 mg BID PO 11/02/24 10:00 Laboratory Results Laboratory Tests 11/02/24 06:27 Chemistry Test 11/02/24 06:27 Calcium Level 9.7 mg/dL (8.7-10.4) Phosphorus Level Pending Urinalysis Test 10/13/24 22:00 10/14/24 17:27 Urine Color Yellow (Yellow) Urine Clarity Turbid (Clear) H Urine pH 6.0 (5.0-9.0) Urine Specific [place] 1.020 (1.001-1.035) Urine Protein 3+ (Negative) H Urine Ketones Negative (Negative) Urine Blood 3+ /uL (Negative) H Urine Nitrite Negative (Negative) Urine Bilirubin Negative (Negative) Urine Urobilinogen Normal mg/dL (Negative) Urine Leukocyte Esterase Negative /uL (Negative) Urine RBC 2 /hpf (0 - 3) Urine WBC 4 /hpf (0 - 3) Urine Squamous Epithelial Cells Few /hpf (<5) Urine Amorphous Crystals Few /hpf (None Seen) Urine Bacteria Mod /hpf (None Seen) H Urine Glucose 4+ mg/dL (Normal) H Urine Creatinine 77.85 mg/dL (30.0-125.0) Urine Sodium 24 mmol/L (40-220) L Urine Total Protein 647.5 mg/dL (1-14) H Microbiology Microbiology Date/Time Source Procedure Growth Status 10/20/24 09:35 Blood Blood Culture - Final NO GROWTH AFTER 5 DAYS OF INCUBATION. Complete 10/15/24 13:47 Nose MRSA Screen - Final Complete 10/13/24 22:00 Voided Urine Urine Culture - Final Complete Labs and/or images reviewed: Labs reviewed by me, Image(s) reviewed by me Assessment/Plan Assessment/Plan Septic shock with elevated white count altered mental status: Bacteremia with MSSA, ID consult by Dr. Phong Richmond appreciated, patient on vancomycin Syncope possibly secondary to sepsis: CT head negative, chest x-ray negative, C- spine CT negative, echocardiogram 55 percent ejection fraction, carotid ultrasound negative, Neurology consult appreciated EEG normal, Cardiology consult by Dr. Diaz appreciated, no further cardiac workup Non STEMI type 2 secondary to sepsis, echo 10/14/2024 shows 55 % ejection fraction Acute kidney injury hemodynamically mediated; multifactorial, BUN creatinine 44 and 2.61 at the time of admission, now worsening 68/6.94, closely following, patient received hemodialysis on 10/16/2024, bicarb drip discontinued Lasix continued Left foot infection with MSSA: Continue nafcillin Acute metabolic encephalopathy Elevated D-dimer 5.50: DVT ruled out , PE ruled out Chronic Left foot infection Consult for Dr. Watts appreciated, MRI left foot shows no osteomyelitis of the 1st metatarsal stump or abscess History of left 1st toe amputation Left knee x-ray negative Chronic calcaneus fracture right foot Hepatomegaly Hypertension Obstructive Sleep apnea: CPAP Uncontrolled diabetes: Insulin sliding scale Hypercholesterolemia Hypothyroidism History of CVA Chronic calcaneal fracture right foot History of coronary artery disease Diabetic medial left foot ulcer: Wound consult, wound cultures growing MSSA on nafcillin Right IJ dialysis cath in place Moderate malnutrition Pain management: On Dilaudid IV Time spent 65 minutes Continue current management manager clinical services working on arranging outpatient dialysis chart time Had hemodialysis today 11-01-24 Plan discussed with: Patient Date of Service: Nov 02, 2024 Billing Provider: ROWENA MEREDITH MD Common Visit Codes: 94017-[id number] INP/OBS CARE(HIGH) ROWENA MEREDITH MD Nov 02, 2024 09:58
[2024-11-02] MEDS: PREGABALIN 25 MG CAP PO SCH (10:23)
--- NOTE | 2024-11-02 12:10 | DVHPN2 ---
Progress Note - Dictate Date Seen: Nov 02, 2024 Medical Necessity Reason Pt with a Central, PICC or Fol: Yes The following are medically ne: [place] Catheter Subjective The patient was seen at bed side resting comfortably and declines any complaints. The patient has been undergoing IV antibiotics with wound care at bed side. The patient has not been very ambulatory. vital signs Vital Sign Date Time Temp Pulse Resp B/P (MAP) Pulse Ox O2 Delivery O2 Flow Rate FiO2 11/02/24 10:22 128/68 11/02/24 10:16 60 17 11/02/24 08:49 98.0 100 98.0 11/01/24 20:00 Nasal Cannula* 3 32 Total Intake and Output 11/01/24 11/01/24 11/02/24 15:00 23:00 07:00 Intake Total 1217.84 ml 650 ml Output Total 450 ml 900 ml Balance 767.84 ml -250 ml medications Current Medications Medications Dose Ordered Sig/Olinda Route Start Time Stop Time Status Last Admin Dose Admin Vancomycin HCl 0 ml @ 0 mls/hr UD IV 10/13/24 23:30 Cancel Atorvastatin Calcium 40 mg HS PO 10/14/24 22:00 11/01/24 21:13 40 MG Amlodipine Besylate 5 mg DAILY PO 10/14/24 10:00 11/02/24 10:22 5 MG Diagnostic Test (Pha) 1 strip Q6HR 10/14/24 00:00 11/02/24 05:25 1 STRIP Insulin Human Regular Q6HR SC 10/14/24 00:00 11/02/24 05:36 6 UNITS Dextrose 50 ml UD PRN IV 10/13/24 23:30 Ondansetron HCl 4 mg Q4HP PRN IV 10/13/24 23:30 11/02/24 10:37 4 MG Acetaminophen 650 mg Q6HP PRN PO 10/13/24 23:30 10/26/24 04:21 650 MG Nitroglycerin 0.4 mg Q5MINP PRN SL 10/13/24 23:30 Morphine Sulfate 2 mg Q30M PRN IV 10/13/24 23:30 Hold Aspirin 81 mg DAILY PO 10/15/24 10:00 11/02/24 10:21 81 MG Heparin Sodium (Porcine) 5,000 units Q12HR SC 10/15/24 10:00 11/02/24 10:48 5,000 UNITS Furosemide 80 mg BIDD IV 10/16/24 07:30 11/02/24 05:28 80 MG Epoetin Bran-epbx 8,000 unit TUTHSA@2100 SC 10/21/24 19:45 10/30/24 22:47 8,000 UNIT Vancomycin HCl 0 ml @ 0 mls/hr UD IV 10/22/24 21:30 Sodium Chloride 10 ml QSHIFT@10,22 IV 10/24/24 22:00 11/02/24 10:24 10 ML Levofloxacin/ Dextrose 100 ml @ 100 mls/hr Q48H IV 10/24/24 20:45 UNV Cefpodoxime Proxetil 200 mg BID PO 10/25/24 22:00 UNV Cefpodoxime Proxetil 200 mg DAILY PO 10/25/24 21:00 11/02/24 10:37 200 MG Metoprolol Tartrate 5 mg Q6HP PRN IV 10/29/24 15:00 Gentamicin Sulfate 1 drop Q4HR LEFTEYE 10/30/24 04:30 11/02/24 10:38 1 DROP Hydromorphone HCl 2 mg Q4HR IV 10/30/24 04:30 11/02/24 10:16 2 MG Pregabalin 25 mg BID PO 11/02/24 10:00 11/02/24 10:23 25 MG objective Stable scab formation is noted to the stump of the left great toe. No cellulitis is noted. No ascending cellulitis is noted. No erythema is noted. No foul odor is noted. No discharge is noted. No signs of infection noted. DP/PT +2/4 bilaterally, CFT 3 seconds bilaterally. No focal deficit is noted. laboratory and microbiology Laboratory Tests 11/02/24 06:27 Test 11/02/24 06:27 Range/Units Serum Glucose 206 H 74-106 mg/dL Assessment/Plan Primary diagnosis: Chronic 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 Good stable scab formation is noted. Old Chronic calcaneal fracture right foot. No issues. Mild edema right LE. Secondary diagnosis: DM II CVA HTN Dyslipidemia Thyroid The patient to continue to be non-weight bearing . The patient may be discharged from Podiatric Surgical point of view. The patient to follow up at my office upon discharge. All questions and concerns were answered to the patient's satisfaction. Dietary Evaluation Review Comments: 1. Consider adding nephrovite 2. Consider adding renal to diet restrictions 3. Consider adding Nepro shake if pt with low PO intake Expected Outcomes/Goals: 1. Pt will consume >75% of estimated needs within 3-5 days Plan discussed with: Patient CONNOR DAVE DPM Nov 02, 2024 12:10
[2024-11-02] MEDS: ERGOCALCIFEROL 50,000 UNIT(1.25MG) CAP PO SCH (12:52)
[2024-11-02 13:21] VITALS: BP 114/69; PULSE 76; RESP 18; TEMP 98.4; O2SAT 96
[2024-11-02] MEDS: VANCOMYCIN 500mg/100mL 100 ML IV ONE (13:57)
[2024-11-02 16:50] VITALS: BP 129/69; PULSE 72; RESP 17; TEMP 98.1; O2SAT 91
[2024-11-02] MEDS: SEVELAMER 800 MG TAB PO SCH (18:36)
[2024-11-02 20:00] VITALS: PULSE 68; PULSE 71; RESP 18; O2SAT 100
--- NOTE | 2024-11-02 20:18 | DVHPN2 ---
Consult Progress Note Date Seen: Nov 02, 2024 Subjective Patient reports: Feels better (on 3 liters nasal canula , not hypoxic ) Objective vital signs Vital Sign Date Time Temp Pulse Resp B/P (MAP) Pulse Ox O2 Delivery O2 Flow Rate FiO2 11/02/24 18:54 165/81 11/02/24 18:45 66 18 11/02/24 16:50 98.1 91 98.1 11/02/24 07:40 Nasal Cannula* 4 36 Total Intake and Output 11/01/24 11/01/24 11/02/24 15:00 23:00 07:00 Intake Total 1217.84 ml 650 ml Output Total 450 ml 900 ml Balance 767.84 ml -250 ml medications Current Medications Medications Dose Ordered Sig/Olinda Route Start Time Stop Time Status Last Admin Dose Admin Vancomycin HCl 0 ml @ 0 mls/hr UD IV 10/13/24 23:30 Cancel Atorvastatin Calcium 40 mg HS PO 10/14/24 22:00 11/01/24 21:13 40 MG Amlodipine Besylate 5 mg DAILY PO 10/14/24 10:00 11/02/24 10:22 5 MG Diagnostic Test (Pha) 1 strip Q6HR 10/14/24 00:00 11/02/24 18:55 1 STRIP Insulin Human Regular Q6HR SC 10/14/24 00:00 11/02/24 19:08 3 UNITS Dextrose 50 ml UD PRN IV 10/13/24 23:30 Ondansetron HCl 4 mg Q4HP PRN IV 10/13/24 23:30 11/02/24 18:36 4 MG Acetaminophen 650 mg Q6HP PRN PO 10/13/24 23:30 10/26/24 04:21 650 MG Nitroglycerin 0.4 mg Q5MINP PRN SL 10/13/24 23:30 Morphine Sulfate 2 mg Q30M PRN IV 10/13/24 23:30 Hold Aspirin 81 mg DAILY PO 10/15/24 10:00 11/02/24 10:21 81 MG Heparin Sodium (Porcine) 5,000 units Q12HR SC 10/15/24 10:00 11/02/24 10:48 5,000 UNITS Furosemide 80 mg BIDD IV 10/16/24 07:30 11/02/24 18:54 80 MG Epoetin Bran-epbx 8,000 unit TUTHSA@2100 MA 10/21/24 19:45 10/30/24 22:47 8,000 UNIT Vancomycin HCl 0 ml @ 0 mls/hr UD IV 10/22/24 21:30 Sodium Chloride 10 ml QSHIFT@10,22 IV 10/24/24 22:00 11/02/24 10:24 10 ML Levofloxacin/ Dextrose 100 ml @ 100 mls/hr Q48H IV 10/24/24 20:45 UNV Cefpodoxime Proxetil 200 mg BID PO 10/25/24 22:00 UNV Cefpodoxime Proxetil 200 mg DAILY PO 10/25/24 21:00 11/02/24 10:37 200 MG Metoprolol Tartrate 5 mg Q6HP PRN IV 10/29/24 15:00 Gentamicin Sulfate 1 drop Q4HR LEFTEYE 10/30/24 04:30 11/02/24 19:10 1 DROP Hydromorphone HCl 2 mg Q4HR IV 10/30/24 04:30 11/02/24 18:45 2 MG Pregabalin 25 mg BID PO 11/02/24 10:00 11/02/24 10:23 25 MG Sevelamer HCl 1,600 mg TIDWM PO 11/02/24 18:00 11/02/24 18:36 1,600 MG Ergocalciferol 50,000 unit Q7D PO 11/02/24 12:15 11/02/24 12:52 50,000 UNIT Physical Exam: General: Patient is in general acute distress Neck: Supple. No masses. HEENT: PERRL. Normal lids and conjunctiva. Moist mucous membranes. Oropharynx without lesions, exudates, or excessive erythema. Normal appearance of the external aspects of the nose and ears. Heart: Regular rhythm, normal rate. No murmur. No lower extremity edema. Lungs: Normal respiratory effort. Clear to auscultation bilaterally. No wheezes. No crackles. Abdomen: Soft. Non-tender. Non-distended. No masses or abdominal hernia. MSK: No digital cyanosis. Normal strength and tone in all 4 limbs. Skin: Warm and dry, no rashes. Neuro: No facial droop or slurred speech. Extraocular movements intact. Sensation intact to soft touch in all 4 limbs. laboratory and microbiology Laboratory Tests 11/02/24 06:27 Test 11/02/24 06:27 Range/Units Serum Glucose 206 H 74-106 mg/dL Problem List/Assessment/Plan Problems(with codes): (1) Status post amputation of left foot (2) Leg pain (3) Occluded PICC line (4) Cellulitis of right lower extremity (5) MSSA (methicillin susceptible Staphylococcus aureus) septicemia (6) Leukocytosis, unspecified (7) Metabolic encephalopathy (8) Diabetic foot ulcer (9) Cellulitis (10) Fever (11) Leg wound, left (12) Syncope Problem List/Assessment/Plan ID Problem List: - MSSA bacteremia - Right foot cellulitis - Bilateral non-healing diabetic foot ulcers - Uncontrolled diabetes mellitus - Acute on chronic kidney disease - Morbid obesity - Dyslipidemia - Hypertension - History of stroke - Hypoxia - Severe sepsis - Lactic acidosis - Altered mental status - Hepatic steatosis - Possible need for further debridement Assessment This is a 69-year-old male with a past medical history of uncontrolled diabetes mellitus, hypertension, chronic kidney disease (baseline creatinine ~2), dyslipidemia, stroke, thyroid disease, morbid obesity, and multiple chronic non- healing diabetic foot ulcers on both feet. He has undergone prior amputations of the left and right great toes. The patient presents with an unwitnessed syncopal episode in the bathroom lasting approximately 4 hours. He denies any pre- syncopal symptoms, shortness of breath, fevers, or chills prior to the episode. On admission, the patient was febrile to 102.8F and hypoxic, requiring supplemental oxygen. Examination revealed right lower extremity cellulitis extending from the ankle to the great toe with drainage from a 1.1 cm ulcer. Laboratory findings include significant leukocytosis (WBC 36), anemia (Hb 12.2), worsening renal function (creatinine increased from baseline 2.61 to 2.7, BUN elevated to 89-92), hyperglycemia (glucose 279), and elevated lactic acid (4.5). Blood cultures grew MSSA on the 14th, and wound cultures from the right great toe grew MSSA on the th. Imaging studies showed right maxillary sinus opacification concerning for acute sinusitis. Left foot CT demonstrated mild soft tissue swelling without abscess or osteomyelitis. Right foot MRI indicated soft tissue inflammatory changes consistent with possible cellulitis but no abscess or osteomyelitis. The patient developed progressive hypoxia requiring up to 10 liters of supplemental oxygen. A V/Q scan ruled out pulmonary embolism. He underwent dialysis for worsening renal failure and volume overload, with placement of a dialysis catheter. 10/20:Blood cultures negative for 24 hours , not having an intolerance to nepsillin 10/21: chest x-ray shows pulmonary vascular congestion that is unchanged , on 10 liters nasal canula, blood cultures have no growth to date after 48 hours 10/22: White count is going up despite being on appropriate antibiotic therapy , possibly rellated to larger bacteria than anticipated or patients obesity with a BMI of 41. 10/24: white count is up to 18.8 despite switching antibiotics , at this point suspect patient has suppresed bacteria that has not been caught on cultures 10/25: Blood cultures remain negative , white count is now 14.7 10/28: on 3lNC 10/29; leukocytosis is improving on current regimen , awaiting for patients hypoxia to improve , likely related to volume overload 10/31: increased UOP 11/01: on 3LNC 11/02: whitecount is now 9.4 , a little hyponatremic Plan: - continue oral cefpodoxime 200 milligrams daily for 4 weeks, EOT date is 11/22/24 - dose of vancomycin has been therapeutic - Continue vancomycin Iv for 4 weeks to be given with dialysis at dialysis center , 1.5g MWF, EOT date is 11/22/24 - If white count continues to go up or patient demonstrates other signs of sepsis recommend repeating blood cultures , hold off for now - Renal Function: - Monitor renal function closely. - Avoid nephrotoxic medications. - prior to placement of permanent dialysis catheter will need to ensure clearance of bacteremia - Infectious Disease and Debridement: - defer to podiatry for potential further debridement of the right foot infection. - will fu on blood cultures - agree w/ gentamicin cream from chronic red eye irritation - Diabetes Management: - Optimize glycemic control with insulin therapy. keep BG<180 - Monitor blood glucose levels closely. - Respiratory Support: - Continue supplemental oxygen therapy. - Monitor oxygen saturation and adjust oxygen delivery as needed. - Sepsis Management: - Monitor lactic acid levels. - Provide appropriate supportive care for severe sepsis. Wound Care: - Continue wound care for bilateral foot ulcers. - Coordinate with wound care specialists and home health services. Other Considerations: - Address morbid obesity with nutritional support and weight management strategies. - Monitor liver function tests due to hepatic steatosis. Plan discussed with: Other Dietary Evaluation Review Comments: 1. Consider adding nephrovite 2. Consider adding renal to diet restrictions 3. Consider adding Nepro shake if pt with low PO intake Expected Outcomes/Goals: 1. Pt will consume >75% of estimated needs within 3-5 days KINGS ALVAREZ MD Nov 02, 2024 20:18
[2024-11-03] VITALS (7 sets, daily range): BP systolic 115–153; BP diastolic 57–81; PULSE 62–80; RESP 17–18; TEMP 97.4–98.1; O2SAT 95–100
[2024-11-03 06:30] LABS: Anion Gap 10 (5-15); Carbon Dioxide 29 mmol/L (20-31)
[2024-11-03 06:31] LABS: Calcium 9.8 mg/dL (8.7-10.4)
[2024-11-03 06:35] LABS: BUN/Creatinine Ratio 9.6 (10.0-20.0)
[2024-11-03 06:48] LABS: Blood Urea Nitrogen 49 mg/dL (9-23); Chloride 90 mmol/L (98-107); Glucose 192 mg/dL (74-106); Potassium 3.5 mmol/L (3.5-5.1); Sodium 129 mmol/L (136-145)
[2024-11-03] MEDS ORDERED: SODIUM CHL 0.9% 1000 ML BAG XX ONE (07:00)
--- NOTE | 2024-11-03 07:31 | DVHPN2 ---
Reviewed: Care Plan, H&P, Labs, Medications, Previous Orders, Radiology Changes from previous H/P or p: No Changes Objective Vitals Vital Signs Date Time Temp Pulse Resp B/P (MAP) Pulse Ox O2 Delivery O2 Flow Rate FiO2 11/03/24 05:51 68 17 138/62 11/03/24 04:45 98.1 96 98.1 11/02/24 20:00 Nasal Cannula* 3 32 Intake/Output Intake and Output 11/03/24 07:00 Intake Total 1450 ml Output Total 2300 ml Balance -850 ml Intake Oral 1350 ml IV Total 100 ml Output Urine Total 2300 ml Medications Current Medications Medications Dose Ordered Sig/Olinda Route Start Time Stop Time Status Last Admin Dose Admin Vancomycin HCl 0 ml @ 0 mls/hr UD IV 10/13/24 23:30 Cancel Atorvastatin Calcium 40 mg HS PO 10/14/24 22:00 11/02/24 21:41 40 MG Amlodipine Besylate 5 mg DAILY PO 10/14/24 10:00 11/02/24 10:22 5 MG Diagnostic Test (Pha) 1 strip Q6HR 10/14/24 00:00 11/03/24 05:24 1 STRIP Insulin Human Regular Q6HR SC 10/14/24 00:00 11/03/24 05:39 4 UNITS Dextrose 50 ml UD PRN IV 10/13/24 23:30 Ondansetron HCl 4 mg Q4HP PRN IV 10/13/24 23:30 11/03/24 01:37 4 MG Acetaminophen 650 mg Q6HP PRN PO 10/13/24 23:30 10/26/24 04:21 650 MG Nitroglycerin 0.4 mg Q5MINP PRN SL 10/13/24 23:30 Morphine Sulfate 2 mg Q30M PRN IV 10/13/24 23:30 Hold Aspirin 81 mg DAILY PO 10/15/24 10:00 11/02/24 10:21 81 MG Heparin Sodium (Porcine) 5,000 units Q12HR SC 10/15/24 10:00 11/02/24 21:43 5,000 UNITS Furosemide 80 mg BIDD IV 10/16/24 07:30 11/03/24 05:22 80 MG Epoetin Bran-epbx 8,000 unit TUTHSA@2100 ND 10/21/24 19:45 11/02/24 21:41 8,000 UNIT Sodium Chloride 10 ml QSHIFT@10,22 IV 10/24/24 22:00 11/02/24 21:42 10 ML Levofloxacin/ Dextrose 100 ml @ 100 mls/hr Q48H IV 10/24/24 20:45 UNV Cefpodoxime Proxetil 200 mg BID PO 10/25/24 22:00 UNV Cefpodoxime Proxetil 200 mg DAILY PO 10/25/24 21:00 11/02/24 10:37 200 MG Metoprolol Tartrate 5 mg Q6HP PRN IV 10/29/24 15:00 Gentamicin Sulfate 1 drop Q4HR LEFTEYE 10/30/24 04:30 11/03/24 05:20 1 DROP Hydromorphone HCl 2 mg Q4HR IV 10/30/24 04:30 11/03/24 05:21 2 MG Pregabalin 25 mg BID PO 11/02/24 10:00 11/02/24 21:41 25 MG Sevelamer HCl 1,600 mg TIDWM PO 11/02/24 18:00 11/02/24 18:36 1,600 MG Ergocalciferol 50,000 unit Q7D PO 11/02/24 12:15 11/02/24 12:52 50,000 UNIT Laboratory Results Laboratory Tests 11/02/24 06:27 11/03/24 05:27 Chemistry Test 11/03/24 05:27 Calcium Level 9.8 mg/dL (8.7-10.4) Urinalysis Test 10/13/24 22:00 10/14/24 17:27 Urine Color Yellow (Yellow) Urine Clarity Turbid (Clear) H Urine pH 6.0 (5.0-9.0) Urine Specific [place] 1.020 (1.001-1.035) Urine Protein 3+ (Negative) H Urine Ketones Negative (Negative) Urine Blood 3+ /uL (Negative) H Urine Nitrite Negative (Negative) Urine Bilirubin Negative (Negative) Urine Urobilinogen Normal mg/dL (Negative) Urine Leukocyte Esterase Negative /uL (Negative) Urine RBC 2 /hpf (0 - 3) Urine WBC 4 /hpf (0 - 3) Urine Squamous Epithelial Cells Few /hpf (<5) Urine Amorphous Crystals Few /hpf (None Seen) Urine Bacteria Mod /hpf (None Seen) H Urine Glucose 4+ mg/dL (Normal) H Urine Creatinine 77.85 mg/dL (30.0-125.0) Urine Sodium 24 mmol/L (40-220) L Urine Total Protein 647.5 mg/dL (1-14) H Microbiology Microbiology Date/Time Source Procedure Growth Status 10/20/24 09:35 Blood Blood Culture - Final NO GROWTH AFTER 5 DAYS OF INCUBATION. Complete 10/15/24 13:47 Nose MRSA Screen - Final Complete 10/13/24 22:00 Voided Urine Urine Culture - Final Complete Labs and/or images reviewed: Labs reviewed by me, Image(s) reviewed by me Assessment/Plan Assessment/Plan Septic shock with elevated white count altered mental status: Bacteremia with MSSA, ID consult by Dr. Phong Richmond appreciated, patient on vancomycin Syncope possibly secondary to sepsis: CT head negative, chest x-ray negative, C- spine CT negative, echocardiogram 55 percent ejection fraction, carotid ultrasound negative, Neurology consult appreciated EEG normal, Cardiology consult by Dr. Diaz appreciated, no further cardiac workup Non STEMI type 2 secondary to sepsis, echo 10/14/2024 shows 55 % ejection fraction Acute kidney injury hemodynamically mediated; multifactorial, BUN creatinine 44 and 2.61 at the time of admission, now worsening 68/6.94, closely following, patient received hemodialysis on 10/16/2024, bicarb drip discontinued Lasix continued Left foot infection with MSSA: Continue nafcillin Acute metabolic encephalopathy Elevated D-dimer 5.50: DVT ruled out , PE ruled out Chronic Left foot infection Consult for Dr. Watts appreciated, MRI left foot shows no osteomyelitis of the 1st metatarsal stump or abscess History of left 1st toe amputation Left knee x-ray negative Chronic calcaneus fracture right foot Hepatomegaly Hypertension Obstructive Sleep apnea: CPAP Uncontrolled diabetes: Insulin sliding scale Hypercholesterolemia Hypothyroidism History of CVA Chronic calcaneal fracture right foot History of coronary artery disease Diabetic medial left foot ulcer: Wound consult, wound cultures growing MSSA on nafcillin Right IJ dialysis cath in place Moderate malnutrition Pain management: On Dilaudid IV Time spent 66 minutes Continue current management clinical services manager working on arranging outpatient dialysis chart time Plan discussed with: Patient Date of Service: Nov 03, 2024 Billing Provider: ROWENA MEREDITH MD Common Visit Codes: [id number] CARE 30-74 MIN ROWENA MEREDITH MD Nov 03, 2024 07:31
--- NOTE | 2024-11-03 08:07 | DVHDS2 ---
Discharge Summary Date of Admission Oct 13, 2024 at 23:29 Date of Discharge: Nov 03, 2024 Admitting Diagnosis Sepsis secondary to bilateral foot infection Wounds: Cellulitis bilateral feet Labs/Diagnostic Data: Laboratory Results Test 11/03/24 05:36 11/03/24 05:27 11/02/24 06:27 10/24/24 05:40 POC Glucose 201 mg/dl (70-106) Sodium Level 129 mmol/L (136-145) Potassium Level 3.5 mmol/L (3.5-5.1) Chloride Level 90 mmol/L (98-107) Carbon Dioxide Level 29 mmol/L (20-31) Anion Gap 10 (5-15) Blood Urea Nitrogen 49 mg/dL (9-23) Creatinine 5.09 mg/dL (0.700-1.30) Glomerular Filtration Rate Calc 12 mL/min (>90) BUN/Creatinine Ratio 9.6 (10.0-20.0) Serum Glucose 192 mg/dL (74-106) Calcium Level 9.8 mg/dL (8.7-10.4) Random Vancomycin Level 18.3 ug/mL (5-10) White Blood Count 9.4 10^3/uL (4.4-10.8) Red Blood Count 3.67 10^6/uL (4.5-5.90) Hemoglobin 9.9 g/dL (13.5-17.5) Hematocrit 29.4 % (41.0-53.0) Mean Corpuscular Volume 80.2 fL (80.0-100.0) Mean Corpuscular Hemoglobin 27.1 pg (28.0-32.0) Mean Corpuscular Hemoglobin Concent 33.7 g/dL (32.0-36.0) Red Cell Distribution Width 17.8 % (11.8-14.3) Platelet Count 324 10^3/uL (140-450) Mean Platelet Volume 7.4 fL (6.9-10.8) Neutrophils (%) (Auto) 71.0 % (37.0-80.0) Lymphocytes (%) (Auto) 16.5 % (10.0-50.0) Monocytes (%) (Auto) 7.8 % (0.0-12.0) Eosinophils (%) (Auto) 3.6 % (0.0-7.0) Basophils (%) (Auto) 1.1 % (0.0-2.0) Neutrophils # (Auto) 6.7 10 ^3/uL (1.6-8.6) Lymphocytes # (Auto) 1.5 10 ^3/uL (0.4-5.4) Monocytes # (Auto) 0.7 10 ^3/uL (0-1.3) Eosinophils # (Auto) 0.3 10 ^3/uL (0-0.8) Basophils # (Auto) 0.1 10 ^3/uL (0-0.2) Nucleated Red Blood Cells 0.1 % Phosphorus Level 6.1 mg/dL (2.4-5.1) Parathyroid Hormone (Intact) 108.1 pg/mL (18.4-80.1) Differential Total Cells Counted 100.0 (100) Neutrophils % (Manual) 81 (37.0-80.0) Band Neutrophils % (Manual) 3 Lymphocytes % (Manual) 12 (10.0-50.0) Monocytes % (Manual) 2 (0-12) Eosinophils % (Manual) 2 (0-7) Basophils % (Manual) 0 (0.0-2.0) Metamyelocytes % (manual) 0 Myelocytes % (Manual) 0 Promyelocytes % (Manual) 0 Blast Cells % (Manual) 0 Reactive Lymphocytes 0 Platelet Estimate Adequate Microcytosis Slight Prothrombin Time 10.9 sec (9.3-11.8) Prothrombin Time INR 1.03 (0.9-1.15) Activated Partial Thromboplast Time 33.1 SEC (24.5-34.5) Test 10/16/24 05:08 10/16/24 04:27 10/15/24 13:10 10/15/24 02:15 Total Bilirubin 0.6 mg/dL (0.2-1.0) Aspartate Amino Transferase (AST) 237 U/L (13-40) Alanine Aminotransferase (ALT) 161 U/L (7-40) Alkaline Phosphatase 191 U/L (46-116) Total Protein 6.8 g/dL (5.7-8.2) Albumin 3.5 g/dL (3.2-4.8) Hepatitis A IgM Antibody Negative Hepatitis B Surface Antigen Negative (Negative) Hepatitis B Core IgM Antibody Negative Hepatitis C Antibody Negative (Negative) Anti-Nuclear Antibody Comment Comment (.) Cytoplasmic ANCA (c-ANCA) Antibody <1:20 titer (Neg:<1:20) Anti-Proteinase 3 (c-ANCA) <0.2 units (0.0-0.9) Atypical p-ANCA <1:20 titer (Neg:<1:20) Perinuclear ANCA (p-ANCA) Antibody <1:20 titer (Neg:<1:20) Myeloperoxidase Antibody <0.2 units (0.0-0.9) PHIL-1 Antibody <0.2 AI (0.0-0.9) SS-A/Ro Antibody <0.2 AI (0.0-0.9) SS-B/La Antibody <0.2 AI (0.0-0.9) Sm Antibody <0.2 AI (0.0-0.9) MECH[employer]ICAL EXPERT Antibody 0.3 AI (0.0-0.9) Scl-70 (Scleroderma) Antibody <0.2 AI (0.0-0.9) Anti-Double Strand DNA Antibody <1 IU/mL (0-9) Chromatin Antibody 0.7 AI (0.0-0.9) Centromere B Antibody <0.2 AI (0.0-0.9) Complement C3 155 mg/dL (82-167) Complement C4 23 mg/dL (12-38) Influenza Type A Antigen Negative (Negative) Influenza Type B Antigen Negative (Negative) SARS-CoV-2 Antigen (Rapid) Negative (NEGATIVE) Test 10/14/24 17:27 10/14/24 10:43 10/14/24 05:29 10/13/24 22:55 Urine Creatinine 77.85 mg/dL (30.0-125.0) Urine Sodium 24 mmol/L (40-220) Urine Total Protein 647.5 mg/dL (1-14) Lactic Acid Level 1.8 mmol/L (0.4-2.0) Ammonia 17 umol/L (11-32) Hemoglobin A1c 9.2 % A1C (<5.7) Magnesium Level 2.1 mg/dL (1.6-2.6) Triglycerides Level 158 mg/dL (< 150) Cholesterol Level 102 mg/dL (< 200) LDL Cholesterol 32 mg/dL (< 100) HDL Cholesterol 36 mg/dL (40-59) Vitamin B12 Level 446 pg/mL (211-911) Vitamin D 25-Hydroxy 22.0 ng/mL (30.0-100) Thyroid Stimulating Hormone (TSH) 0.46 uIU/mL (0.55-4.78) Blood Gas Specimen Type Arterial Blood Gas Sample Site Right radial Blood Gas Patient Temperature 37.0 Arterial Blood Date Drawn [id number] Arterial Blood pH 7.411 (7.350-7.450) Arterial Blood Partial Pressure CO2 37.6 mmHg (35.0-48.0) Arterial Blood Partial Pressure O2 70.3 mmHg (83.0-108.0) Arterial Blood HCO3 23.4 mmol/L (21.0-28.0) Arterial Blood Oxygen Saturation 93.7 % (94.0-98.0) Arterial Blood Base Excess -1.0 mmol/L (-2.0-3.0) Arterial Blood Oxyhemoglobin 92.3 % (94.0-98.0) Arterial Blood Carboxyhemoglobin 1.2 % (0.5-1.5) Arterial Blood Methemoglobin 0.3 % (0.0-1.5) D[place]a Test Modified Blood Gas Total Hemoglobin 12.10 g/dL (13.5-17.5) Blood Gas Liter Flow 5.00 Blood Gas Modality Nasal cannula FiO2 % 40.0 Test 10/13/24 22:12 10/13/24 22:00 10/13/24 18:50 D-Dimer, Quantitative 5.50 mg/L FEU (0.0-0.49) Troponin I High Sensitivity 324 ng/L (</=54) Urine Color Yellow (Yellow) Urine Clarity Turbid (Clear) Urine pH 6.0 (5.0-9.0) Urine Specific Garrard 1.020 (1.001-1.035) Urine Protein 3+ (Negative) Urine Ketones Negative (Negative) Urine Blood 3+ /uL (Negative) Urine Nitrite Negative (Negative) Urine Bilirubin Negative (Negative) Urine Urobilinogen Normal mg/dL (Negative) Urine Leukocyte Esterase Negative /uL (Negative) Urine RBC 2 /hpf (0 - 3) Urine WBC 4 /hpf (0 - 3) Urine Squamous Epithelial Cells Few /hpf (<5) Urine Amorphous Crystals Few /hpf (None Seen) Urine Bacteria Mod /hpf (None Seen) Urine Glucose 4+ mg/dL (Normal) Urine Opiates Screen Neg (NEGATIVE) Urine Fentanyl Screen Neg (NEGATIVE) Urine Barbiturates Screen Neg (NEGATIVE) Urine Phencyclidine Screen Neg (NEGATIVE) Urine Amphetamines Screen Neg (NEGATIVE) Urine Benzodiazepines Screen Neg (NEGATIVE) Urine Cocaine Screen Neg (NEGATIVE) Urine Cannabinoids Screen Neg (NEGATIVE) B-Type Natriuretic Peptide 379.72 pg/mL (0-100) Other Laboratory Tests 11/03/24 05:27 11/02/24 06:27 Brief Hx & Hospital Course: 69-year-old male with a history of hypertension hyperlipidemia stroke hypoxia uncontrolled diabetes chronic nonhealing ulcers bilateral foot admitted for sepsi patient was s and cellulitis of the bilateral feet. Patient was started on vancomycin for sepsis and cefepime was added by the ID Dr Dr. Richmond. Patient was seen by podiatric . Advised to continue the antibiotics and wound dressings. The patient developed acute kidney failure for which he was started on dialysis by Dr. Irineo ohpkins. Patient received physical therapy patient had a prolonged stay of 21 days in the hospital. Patient being discharged to shelter facility to continue IV vancomycin 1.5 g during dialysis days Friday. He will continue to receive hemodialysis as an outpatient and dressing changes wound care pain management physical therapy and he will follow up with tpodiatrist and manager of maintenance General condition poor at the time of discharge but stable Consults/Reason for consult Podiatric Dr. Watts ID Dr. Phong Richmond Nephrology Dr. Cabello Operations or Procedures Hemodialysis Condition at Discharge: Poor Final Diagnosis/Problems List ESRD on hemodialysis Friday - MSSA bacteremia - Right foot cellulitis - Bilateral non-healing diabetic foot ulcers: Cefpodoxime 200 mg po daily, vancomycin 1.5 g IV with dialysis Friday - Uncontrolled diabetes mellitus - Acute on chronic kidney disease - Morbid obesity - Dyslipidemia - Hypertension - History of stroke - Hypoxia - Severe sepsis - Lactic acidosis - Altered mental status - Hepatic steatosis - Possible need for further debridement Discharge Disposition: Halfway Facility Discharge Instruct/Medications Diet: Consistent carbohydrate Activity: Light activity Follow Up/Referral: Follow up with the [facility] doctor Medications: Vancomycin 1.5 g IV with dialysis Friday cefpodoxime 200 mg p.o. b.i.d. see list for other meds 39 (Time taken for discharge summary 39 minutes) Discharge Statement: "Patient was advised to return to the ER or call 911 if any headaches, dizziness, shortness of breath, chest pain, abdominal pain, bleeding, fevers, or worsening of medical condition. Patient was counseled about treatment plan, medications, possible side effects, patientverbalized understanding. All questions were answered to the best of my ability. This discharge took greater then 30 minutes in planning, reviewing documentation, counseling the patient, and discussing with other team members." ASSESSMENT ASSESSMENT Assessment - MSSA bacteremia - Right foot cellulitis - Bilateral non-healing diabetic foot ulcers: Cefpodoxime 200 mg po daily, vancomycin 1.5 g IV with dialysis Friday - Uncontrolled diabetes mellitus - Acute on chronic kidney disease - Morbid obesity - Dyslipidemia - Hypertension - History of stroke - Hypoxia - Severe sepsis - Lactic acidosis - Altered mental status - Hepatic steatosis - Possible need for further debridement Date of Service: Nov 03, 2024 Billing Provider: ROWENA MEREDITH MD Common Visit Codes: 18298-NCG/OBS DISCH DAY >30min ROWENA MEREDITH MD Nov 03, 2024 08:07
--- NOTE | 2024-11-03 13:14 | DVHPN2 ---
Progress Note - Dictate Date Seen: Nov 03, 2024 Medical Necessity Reason Pt with a Central, PICC or Fol: No Subjective Hd today vital signs Vital Sign Date Time Temp Pulse Resp B/P (MAP) Pulse Ox O2 Delivery O2 Flow Rate FiO2 11/03/24 10:14 60 15 135/80 11/03/24 09:00 97.4 100 97.4 11/03/24 08:00 Nasal Cannula* 3 N/A Oxymizer Total Intake and Output 11/02/24 11/02/24 11/03/24 15:00 23:00 07:00 Intake Total 100 ml 975 ml 375 ml Output Total 850 ml 1450 ml Balance 100 ml 125 ml -1075 ml medications Current Medications Medications Dose Ordered Sig/Olinda Route Start Time Stop Time Status Last Admin Dose Admin Vancomycin HCl 0 ml @ 0 mls/hr UD IV 10/13/24 23:30 Cancel Atorvastatin Calcium 40 mg HS PO 10/14/24 22:00 11/02/24 21:41 40 MG Amlodipine Besylate 5 mg DAILY PO 10/14/24 10:00 11/03/24 09:43 5 MG Diagnostic Test (Pha) 1 strip Q6HR 10/14/24 00:00 11/03/24 12:19 1 STRIP Insulin Human Regular Q6HR SC 10/14/24 00:00 11/03/24 12:31 8 UNITS Dextrose 50 ml UD PRN IV 10/13/24 23:30 Ondansetron HCl 4 mg Q4HP PRN IV 10/13/24 23:30 11/03/24 09:55 4 MG Acetaminophen 650 mg Q6HP PRN PO 10/13/24 23:30 10/26/24 04:21 650 MG Nitroglycerin 0.4 mg Q5MINP PRN SL 10/13/24 23:30 Morphine Sulfate 2 mg Q30M PRN IV 10/13/24 23:30 Hold Aspirin 81 mg DAILY PO 10/15/24 10:00 11/03/24 09:42 81 MG Heparin Sodium (Porcine) 5,000 units Q12HR SC 10/15/24 10:00 11/03/24 09:55 5,000 UNITS Furosemide 80 mg BIDD IV 10/16/24 07:30 11/03/24 05:22 80 MG Epoetin Bran-epbx 8,000 unit TUTHSA@2100 SC 10/21/24 19:45 11/02/24 21:41 8,000 UNIT Sodium Chloride 10 ml QSHIFT@10,22 IV 10/24/24 22:00 11/03/24 09:41 10 ML Levofloxacin/ Dextrose 100 ml @ 100 mls/hr Q48H IV 10/24/24 20:45 UNV Cefpodoxime Proxetil 200 mg BID PO 10/25/24 22:00 UNV Cefpodoxime Proxetil 200 mg DAILY PO 10/25/24 21:00 11/03/24 09:41 200 MG Metoprolol Tartrate 5 mg Q6HP PRN IV 10/29/24 15:00 Gentamicin Sulfate 1 drop Q4HR LEFTEYE 10/30/24 04:30 11/03/24 09:40 1 DROP Hydromorphone HCl 2 mg Q4HR IV 10/30/24 04:30 11/03/24 09:44 2 MG Pregabalin 25 mg BID PO 11/02/24 10:00 11/03/24 09:43 25 MG Sevelamer HCl 1,600 mg TIDWM PO 11/02/24 18:00 11/03/24 12:19 1,600 MG Ergocalciferol 50,000 unit Q7D PO 11/02/24 12:15 11/02/24 12:52 50,000 UNIT objective Morbidly obese white male Breathing with high-flow oxygen Mild distress with shortness of breath Abdomen is soft Large and distended Bilateral 1+ pitting edema Left toe amputations with wound wrapped in gauze laboratory and microbiology Laboratory Tests 11/03/24 05:27 11/02/24 06:27 Test 11/03/24 05:27 Range/Units Serum Glucose 192 H 74-106 mg/dL Assessment/Plan Acute kidney injury hemodynamically mediated; multifactorial Baseline renal function is normal Sepsis due to bacteremia; STaph Urinary tract infection Syncope Obstructive sleep apnea severe proteinuria likely due to Dm2 EF 55% grade 1 diastolic Hd treatment today Ultrasound of the kidney was unremarkable Nge BCX 10/20 echo does not report vegetations Avoid hypotension Hd chairtime pending outpatient recommend biopsy of kidney to determine Maverick prognosis TOV if ambulatory Dietary Evaluation Review Comments: 1. Consider adding nephrovite 2. Consider adding renal to diet restrictions 3. Consider adding Nepro shake if pt with low PO intake Expected Outcomes/Goals: 1. Pt will consume >75% of estimated needs within 3-5 days Plan discussed with: Patient RAJENDRA SHANNON MD Nov 03, 2024 13:14
[2024-11-03] MEDS: VANCOMYCIN 500mg/100mL 100 ML IV ONE (17:13)
[2024-11-03] MEDS ORDERED: EPOETIN ALFA-EPBX 10,000 UNIT/1ML VIAL SC ONE (21:00)
[2024-11-03] MEDS ORDERED: CEFP200T15 PO (21:13)
--- NOTE | 2024-11-03 22:12 | DVHPN2 ---
Consult Progress Note Date Seen: Nov 03, 2024 Subjective Patient reports: Other (got dialysis and tolerating it well , on 2 liters nasal canula and breathing well ) Objective vital signs Vital Sign Date Time Temp Pulse Resp B/P (MAP) Pulse Ox O2 Delivery O2 Flow Rate FiO2 11/03/24 17:45 70 17 132/69 11/03/24 17:00 97.6 100 97.6 11/03/24 08:00 Nasal Cannula* 3 N/A Oxymizer Total Intake and Output 11/02/24 11/02/24 11/03/24 15:00 23:00 07:00 Intake Total 100 ml 975 ml 375 ml Output Total 850 ml 1450 ml Balance 100 ml 125 ml -1075 ml medications Current Medications Medications Dose Ordered Sig/Olinda Route Start Time Stop Time Status Last Admin Dose Admin Vancomycin HCl 0 ml @ 0 mls/hr UD IV 10/13/24 23:30 Cancel Levofloxacin/ Dextrose 100 ml @ 100 mls/hr Q48H IV 10/24/24 20:45 UNV Cefpodoxime Proxetil 200 mg BID PO 10/25/24 22:00 UNV Physical Exam: General: Patient is in general acute distress Neck: Supple. No masses. HEENT: PERRL. Normal lids and conjunctiva. Moist mucous membranes. Oropharynx without lesions, exudates, or excessive erythema. Normal appearance of the external aspects of the nose and ears. Heart: Regular rhythm, normal rate. No murmur. No lower extremity edema. Lungs: Normal respiratory effort. Clear to auscultation bilaterally. No wheezes. No crackles. Abdomen: Soft. Non-tender. Non-distended. No masses or abdominal hernia. MSK: No digital cyanosis. Normal strength and tone in all 4 limbs. Skin: Warm and dry, no rashes. Neuro: No facial droop or slurred speech. Extraocular movements intact. Sensation intact to soft touch in all 4 limbs. laboratory and microbiology Laboratory Tests 11/03/24 05:27 11/02/24 06:27 Test 11/03/24 05:27 Range/Units Serum Glucose 192 H 74-106 mg/dL Problem List/Assessment/Plan Problems(with codes): (1) MSSA (methicillin susceptible Staphylococcus aureus) septicemia (2) Leg pain (3) Occluded PICC line (4) Cellulitis of right lower extremity (5) Status post amputation of left foot (6) Metabolic encephalopathy (7) Leukocytosis, unspecified (8) Diabetic foot ulcer (9) Cellulitis (10) Leg wound, left Problem List/Assessment/Plan ID Problem List: - MSSA bacteremia - Right foot cellulitis - Bilateral non-healing diabetic foot ulcers - Uncontrolled diabetes mellitus - Acute on chronic kidney disease - Morbid obesity - Dyslipidemia - Hypertension - History of stroke - Hypoxia - Severe sepsis - Lactic acidosis - Altered mental status - Hepatic steatosis - Possible need for further debridement Assessment This is a 69-year-old male with a past medical history of uncontrolled diabetes mellitus, hypertension, chronic kidney disease (baseline creatinine ~2), dyslipidemia, stroke, thyroid disease, morbid obesity, and multiple chronic non- healing diabetic foot ulcers on both feet. He has undergone prior amputations of the left and right great toes. The patient presents with an unwitnessed syncopal episode in the bathroom lasting approximately 4 hours. He denies any pre- syncopal symptoms, shortness of breath, fevers, or chills prior to the episode. On admission, the patient was febrile to 102.8F and hypoxic, requiring supplemental oxygen. Examination revealed right lower extremity cellulitis extending from the ankle to the great toe with drainage from a 1.1 cm ulcer. Laboratory findings include significant leukocytosis (WBC 36), anemia (Hb 12.2), worsening renal function (creatinine increased from baseline 2.61 to 2.7, BUN elevated to 89-92), hyperglycemia (glucose 279), and elevated lactic acid (4.5). Blood cultures grew MSSA on the 14th, and wound cultures from the right great toe grew MSSA on the 13th. Imaging studies showed right maxillary sinus opacification concerning for acute sinusitis. Left foot CT demonstrated mild soft tissue swelling without abscess or osteomyelitis. Right foot MRI indicated soft tissue inflammatory changes consistent with possible cellulitis but no abscess or osteomyelitis. The patient developed progressive hypoxia requiring up to 10 liters of supplemental oxygen. A V/Q scan ruled out pulmonary embolism. He underwent dialysis for worsening renal failure and volume overload, with placement of a dialysis catheter. 10/20:Blood cultures negative for 24 hours , not having an intolerance to nepsillin 10/21: chest x-ray shows pulmonary vascular congestion that is unchanged , on 10 liters nasal canula, blood cultures have no growth to date after 48 hours 10/22: White count is going up despite being on appropriate antibiotic therapy , possibly rellated to larger bacteria than anticipated or patients obesity with a BMI of 41. 10/24: white count is up to 18.8 despite switching antibiotics , at this point suspect patient has suppresed bacteria that has not been caught on cultures 10/25: Blood cultures remain negative , white count is now 14.7 10/28: on 3lNC 10/29; leukocytosis is improving on current regimen , awaiting for patients hypoxia to improve , likely related to volume overload 10/31: increased UOP 11/01: on 3LNC 11/02: whitecount is now 9.4 , a little hyponatremic 11/03: patient is tolerating antibiotics Plan: - continue oral cefpodoxime 200 milligrams daily for 4 weeks, EOT date is 11/22/24 - dose of vancomycin has been therapeutic - Continue vancomycin Iv for 4 weeks to be given with dialysis at dialysis center , 1.5g MWF, EOT date is 11/22/24 - If white count continues to go up or patient demonstrates other signs of sepsis recommend repeating blood cultures , hold off for now - Renal Function: - Monitor renal function closely. - Avoid nephrotoxic medications. - prior to placement of permanent dialysis catheter will need to ensure clearance of bacteremia - Infectious Disease and Debridement: - defer to podiatry for potential further debridement of the right foot infection. - will fu on blood cultures - agree w/ gentamicin cream from chronic red eye irritation - Diabetes Management: - Optimize glycemic control with insulin therapy. keep BG<180 - Monitor blood glucose levels closely. - Respiratory Support: - Continue supplemental oxygen therapy. - Monitor oxygen saturation and adjust oxygen delivery as needed. - Sepsis Management: - Monitor lactic acid levels. - Provide appropriate supportive care for severe sepsis. Wound Care: - Continue wound care for bilateral foot ulcers. - Coordinate with wound care specialists and home health services. Other Considerations: - Address morbid obesity with nutritional support and weight management strategies. - Monitor liver function tests due to hepatic steatosis. Plan discussed with: Other Dietary Evaluation Review Comments: 1. Consider adding nephrovite 2. Consider adding renal to diet restrictions 3. Consider adding Nepro shake if pt with low PO intake Expected Outcomes/Goals: 1. Pt will consume >75% of estimated needs within 3-5 days KINGS ALVAREZ MD Nov 03, 2024 22:12
== END 2024-11-03 18:50 | DRG 871 ==
LOC: EDBD 17:18 → EDUNIT# 17:18 → ER 17:18 → TELE 23:29 → TELE-CENTR 10-14 11:34
PROVIDERS: ADMIT Nurse Practitioner; ATTEND Family Medicine
PROC: 5A09357 Assistance with Respiratory Ventilation, Less than 24 Consecutive Hours, Continuous Positive Airway Pressure (ICD-10-PCS; 2024-10-14)
PROC: 02HV33Z Insertion of Infusion Device into Superior Vena Cava, Percutaneous Approach (ICD-10-PCS; principal; 2024-10-16)
PROC: 5A1D70Z Performance of Urinary Filtration, Intermittent, Less than 6 Hours Per Day (ICD-10-PCS; 2024-10-16)
PROC: 5A1D70Z Performance of Urinary Filtration, Intermittent, Less than 6 Hours Per Day (ICD-10-PCS; 2024-10-18)
PROC: 5A1D70Z Performance of Urinary Filtration, Intermittent, Less than 6 Hours Per Day (ICD-10-PCS; 2024-10-21)
PROC: 02HV33Z Insertion of Infusion Device into Superior Vena Cava, Percutaneous Approach (ICD-10-PCS; 2024-10-22)
PROC: B548ZZA Ultrasonography of Superior Vena Cava, Guidance (ICD-10-PCS; 2024-10-22)
PROC: 5A1D70Z Performance of Urinary Filtration, Intermittent, Less than 6 Hours Per Day (ICD-10-PCS; 2024-10-22)
PROC: 02HV33Z Insertion of Infusion Device into Superior Vena Cava, Percutaneous Approach (ICD-10-PCS; 2024-10-24)
PROC: B548ZZA Ultrasonography of Superior Vena Cava, Guidance (ICD-10-PCS; 2024-10-24)
PROC: 0JH63XZ Insertion of Tunneled Vascular Access Device into Chest Subcutaneous Tissue and Fascia, Percutaneous Approach (ICD-10-PCS; 2024-10-25)
PROC: 02HV33Z Insertion of Infusion Device into Superior Vena Cava, Percutaneous Approach (ICD-10-PCS; 2024-10-25)
PROC: B5181ZA Fluoroscopy of Superior Vena Cava using Low Osmolar Contrast, Guidance (ICD-10-PCS; 2024-10-25)
PROC: B548ZZA Ultrasonography of Superior Vena Cava, Guidance (ICD-10-PCS; 2024-10-25)
PROC: 5A1D70Z Performance of Urinary Filtration, Intermittent, Less than 6 Hours Per Day (ICD-10-PCS; 2024-10-27)
PROC: 5A1D70Z Performance of Urinary Filtration, Intermittent, Less than 6 Hours Per Day (ICD-10-PCS; 2024-10-28)
PROC: 5A1D70Z Performance of Urinary Filtration, Intermittent, Less than 6 Hours Per Day (ICD-10-PCS; 2024-10-29)
PROC: 5A1D70Z Performance of Urinary Filtration, Intermittent, Less than 6 Hours Per Day (ICD-10-PCS; 2024-11-01)
DX: A41.02 Sepsis due to Methicillin resistant Staphylococcus aureus (principal); E11.10 Type 2 diabetes mellitus with ketoacidosis without coma; G93.41 Metabolic encephalopathy; R65.21 Severe sepsis with septic shock; I21.A1 Myocardial infarction type 2; J96.01 Acute respiratory failure with hypoxia; N17.0 Acute kidney failure with tubular necrosis; N18.6 End stage renal disease; E44.0 Moderate protein-calorie malnutrition; N39.0 Urinary tract infection, site not specified; G40.209 Localization-related (focal) (partial) symptomatic epilepsy and epileptic syndromes with complex partial seizures, not intractable, without status epilepticus; L03.115 Cellulitis of right lower limb; L03.116 Cellulitis of left lower limb; Z68.41 Body mass index [BMI] 40.0-44.9, adult; E87.1 Hypo-osmolality and hyponatremia; I12.0 Hypertensive chronic kidney disease with stage 5 chronic kidney disease or end stage renal disease; Z20.822 Contact with and (suspected) exposure to COVID-19; T87.89 Other complications of amputation stump; E66.01 Morbid (severe) obesity due to excess calories; G47.33 Obstructive sleep apnea (adult) (pediatric); E87.6 Hypokalemia; G89.29 Other chronic pain; S91.302A Unspecified open wound, left foot, initial encounter; W18.39XA Other fall on same level, initial encounter; E03.9 Hypothyroidism, unspecified; L97.529 Non-pressure chronic ulcer of other part of left foot with unspecified severity; E78.00 Pure hypercholesterolemia, unspecified; L97.519 Non-pressure chronic ulcer of other part of right foot with unspecified severity; E11.22 Type 2 diabetes mellitus with diabetic chronic kidney disease; E11.51 Type 2 diabetes mellitus with diabetic peripheral angiopathy without gangrene; I25.10 Atherosclerotic heart disease of native coronary artery without angina pectoris; R16.0 Hepatomegaly, not elsewhere classified; K76.0 Fatty (change of) liver, not elsewhere classified; E87.70 Fluid overload, unspecified; E11.621 Type 2 diabetes mellitus with foot ulcer; Z88.5 Allergy status to narcotic agent; Z86.73 Personal history of transient ischemic attack (TIA), and cerebral infarction without residual deficits; Z87.442 Personal history of urinary calculi; Z89.412 Acquired absence of left great toe; Z82.49 Family history of ischemic heart disease and other diseases of the circulatory system; Z83.3 Family history of diabetes mellitus; Y93.89 Activity, other specified; Y92.89 Other specified places as the place of occurrence of the external cause; Y99.8 Other external cause status; Z82.0 Family history of epilepsy and other diseases of the nervous system; Z80.0 Family history of malignant neoplasm of digestive organs; Z99.2 Dependence on renal dialysis; Z79.82 Long term (current) use of aspirin; Z79.899 Other long term (current) drug therapy; Z79.891 Long term (current) use of opiate analgesic; Z89.411 Acquired absence of right great toe
CPT/HCPCS: 36415; 36569; 36600; 70450; 71045; 72125; 72128; 72170; 73560; 73562; 73620; 73700; 73718; 76700; 76937; 78582; 80048; 80053; 80061; 80074; 80202; 80307; 81001; 82140; 82306; 82565; 82570; 82607; 82805; 82962; 83036; 83516; 83520; 83605; 83735; 83880; 83970; 84100; 84156; 84300; 84443; 84484; 85007; 85025; 85027; 85379; 85610; 85730; 86160; 86225; 86235; 86256; 87040; 87077; 87081; 87086; 87186; 87205; 87426; 87804; 90935; 93005; 93017; 93306; 93886; 93970; 94660; 97110; 97116; 97162; 97530; 99152; 99291; 99292; C1894; G0378; J0131; J1642; J1815; J2405; J2543; J3480; J7060

== ENCOUNTER → 2025-01-27 | Outpatient (CLI) | payer MEDICARE, BC ==
[~2025-01-27] MED LIST changes: -BACDST PO; +CEFP200T15 PO; -DOXY1CAP57 PO
[2025-01-27 15:11] LABS: Chloride 100 mmol/L (98-107); Potassium 4.4 mmol/L (3.5-5.1); Sodium 136 mmol/L (136-145)
[2025-01-27 15:12] LABS: Anion Gap 8 (5-15); Carbon Dioxide 28 mmol/L (20-31)
[2025-01-27 15:17] LABS: BUN/Creatinine Ratio 31.4 (10.0-20.0)
[2025-01-27 15:20] LABS: Blood Urea Nitrogen 54 mg/dL (9-23); Calcium 10.5 mg/dL (8.7-10.4); Glucose 263 mg/dL (74-106)
== END | disposition home or self-care (01) ==
LOC: LAB 14:07
PROVIDERS: ATTEND Nurse Practitioner Family
DX: E21.1 Secondary hyperparathyroidism, not elsewhere classified (principal)
CPT/HCPCS: 36415; 80048; 83970

== ENCOUNTER → 2025-02-15 | Outpatient (CLI) | payer MEDICARE, BC ==
[2025-02-15 16:08] LABS: Chloride 104 mmol/L (98-107); Potassium 3.9 mmol/L (3.5-5.1); Sodium 140 mmol/L (136-145)
[2025-02-15 16:09] LABS: Anion Gap 9 (5-15); Carbon Dioxide 27 mmol/L (20-31)
[2025-02-15 16:15] LABS: BUN/Creatinine Ratio 34.8 (10.0-20.0); Blood Urea Nitrogen 64 mg/dL (9-23); Calcium 10.6 mg/dL (8.7-10.4); Glucose 163 mg/dL (74-106)
== END | disposition home or self-care (01) ==
LOC: LAB 15:41
PROVIDERS: ATTEND Student in an Organized Health Care Education/Training Program
DX: E11.22 Type 2 diabetes mellitus with diabetic chronic kidney disease (principal); N18.30 Chronic kidney disease, stage 3 unspecified; E11.21 Type 2 diabetes mellitus with diabetic nephropathy; N39.0 Urinary tract infection, site not specified; E21.3 Hyperparathyroidism, unspecified; E55.9 Vitamin D deficiency, unspecified; M10.9 Gout, unspecified; R80.9 Proteinuria, unspecified; D63.1 Anemia in chronic kidney disease
CPT/HCPCS: 36415; 80048

== ENCOUNTER → 2025-03-01 | Outpatient (CLI) | payer MEDICARE, BC ==
[2025-03-01 15:58] LABS: Chloride 102 mmol/L (98-107); Potassium 4.5 mmol/L (3.5-5.1); Sodium 137 mmol/L (136-145)
[2025-03-01 15:59] LABS: Anion Gap 8 (5-15); Carbon Dioxide 27 mmol/L (20-31)
[2025-03-01 16:00] LABS: Calcium 10.1 mg/dL (8.7-10.4)
[2025-03-01 16:05] LABS: BUN/Creatinine Ratio 31.4 (10.0-20.0)
[2025-03-01 16:14] LABS: Blood Urea Nitrogen 64 mg/dL (9-23); Glucose 352 mg/dL (74-106)
== END | disposition home or self-care (01) ==
LOC: LAB 15:29
PROVIDERS: ATTEND Student in an Organized Health Care Education/Training Program
DX: E11.22 Type 2 diabetes mellitus with diabetic chronic kidney disease (principal); N18.30 Chronic kidney disease, stage 3 unspecified; E11.21 Type 2 diabetes mellitus with diabetic nephropathy; E21.3 Hyperparathyroidism, unspecified; E55.9 Vitamin D deficiency, unspecified; N39.0 Urinary tract infection, site not specified; M10.9 Gout, unspecified; R80.9 Proteinuria, unspecified; D63.1 Anemia in chronic kidney disease
CPT/HCPCS: 36415; 80048

== ENCOUNTER → 2025-03-08 | Outpatient (CLI) | payer MEDICARE, BC ==
[2025-03-08 15:50] LABS: Chloride 104 mmol/L (98-107); Potassium 4.2 mmol/L (3.5-5.1); Sodium 137 mmol/L (136-145)
[2025-03-08 15:51] LABS: Anion Gap 8 (5-15); Calcium 10.3 mg/dL (8.7-10.4); Carbon Dioxide 25 mmol/L (20-31)
[2025-03-08 15:56] LABS: BUN/Creatinine Ratio 25.3 (10.0-20.0); Blood Urea Nitrogen 43 mg/dL (9-23); Glucose 208 mg/dL (74-106)
== END | disposition home or self-care (01) ==
LOC: LAB 15:07
PROVIDERS: ATTEND Student in an Organized Health Care Education/Training Program
DX: E11.22 Type 2 diabetes mellitus with diabetic chronic kidney disease (principal); N18.30 Chronic kidney disease, stage 3 unspecified; E11.21 Type 2 diabetes mellitus with diabetic nephropathy; D63.1 Anemia in chronic kidney disease; R80.9 Proteinuria, unspecified; E21.3 Hyperparathyroidism, unspecified; M10.9 Gout, unspecified; E55.9 Vitamin D deficiency, unspecified
CPT/HCPCS: 36415; 80048

== ENCOUNTER → 2025-03-15 | Outpatient (CLI) | payer MEDICARE, BC ==
[2025-03-15 15:40] LABS: Urine Bacteria None Seen /hpf (None Seen)
[2025-03-15 15:48] LABS: Basophils # (auto) 0 10 ^3/uL (0-0.2); Basophils % (auto) 0.4 % (0.0-2.0); Eosinophils # (auto) 0.3 10 ^3/uL (0-0.8); Eosinophils % (auto) 2.2 % (0.0-7.0); Hematocrit 41.7 % (41.0-53.0); Hemoglobin 13.7 g/dL (13.5-17.5); Lymphocytes # (auto) 2.8 10 ^3/uL (0.4-5.4); Lymphocytes % (auto) 23.6 % (10.0-50.0); Mean Corpuscular Hemoglobin 27.7 pg (28.0-32.0); Mean Corpuscular Hgb Conc. 32.8 g/dL (32.0-36.0); Mean Corpuscular Volume 84.7 fL (80.0-100.0); Monocytes # (auto) 0.9 10 ^3/uL (0-1.3); Monocytes % (auto) 7.6 % (0.0-12.0); Neutrophils # (auto) 7.8 10 ^3/uL (1.6-8.6); Neutrophils % (auto) 66.2 % (37.0-80.0); Platelet Count (auto) 285 10^3/uL (140-450); Red Blood Cells 4.92 10^6/uL (4.5-5.90); Red Cell Distribution Width 13.8 % (11.8-14.3); White Blood Cell 11.7 10^3/uL (4.4-10.8)
[2025-03-15 16:26] LABS: Protein, Urine 130.4 mg/dL (1-14)
[2025-03-15 16:29] LABS: Creatinine, Urine 22.35 mg/dL (30.0-125.0); Urine Protein/Creatinine Ratio 5.83
[2025-03-15 16:37] LABS: Urine Blood TRACE /uL (Negative); Urine Clarity Clear (Clear); Urine Color Colorless (Yellow); Urine Mucus FEW (None Seen); Urine Protein, UAD 1+ (Negative); Urine Specific Gravity 1.008 (1.001-1.035); Urine Squamous Epithelial Cell FEW /hpf (<5); Urine Urobilinogen Normal (Negative); Urine WBC < 1 /HPF (0-3); Urine pH 5.5 (5.0-9.0)
[2025-03-15 16:43] LABS: Alanine Aminotransferase 26 U/L (7-40); Carbon Dioxide 26 mmol/L (20-31); Chloride 103 mmol/L (98-107)
[2025-03-15 16:44] LABS: % Iron Saturation 11.6 % (20-55); Alkaline Phosphatase 150 U/L (46-116); Anion Gap 11 (5-15); Aspartate Aminotransferase 16 U/L (13-40); BUN/Creatinine Ratio 23.8 (10.0-20.0); Bilirubin, Total 0.4 mg/dL (0.2-1.0); Blood Urea Nitrogen 38 mg/dL (9-23); Calcium 10.7 mg/dL (8.7-10.4); Cholesterol 134 mg/dL (< 200); Glucose 94 mg/dL (74-106); LDL Cholesterol 65 mg/dL (< 100); Phosphorus 3.4 mg/dL (2.4-5.1); Potassium 3.3 mmol/L (3.5-5.1); Sodium 140 mmol/L (136-145)
[2025-03-15 16:45] LABS: HDL Cholesterol 34 mg/dL (40-59); Triglycerides 198 mg/dL (< 150)
== END | disposition home or self-care (01) ==
LOC: LAB 15:18
PROVIDERS: ATTEND Student in an Organized Health Care Education/Training Program
DX: E11.22 Type 2 diabetes mellitus with diabetic chronic kidney disease (principal); N18.30 Chronic kidney disease, stage 3 unspecified; E11.21 Type 2 diabetes mellitus with diabetic nephropathy; E21.3 Hyperparathyroidism, unspecified; E55.9 Vitamin D deficiency, unspecified; M10.9 Gout, unspecified; N39.0 Urinary tract infection, site not specified; R80.9 Proteinuria, unspecified; D63.1 Anemia in chronic kidney disease
CPT/HCPCS: 36415; 80053; 80061; 81001; 82306; 82570; 82728; 83036; 83540; 83550; 83970; 84100; 84156; 85025

== ENCOUNTER → 2025-03-22 | Outpatient (CLI) | payer MEDICARE, BC ==
[2025-03-22 15:17] LABS: Chloride 104 mmol/L (98-107); Sodium 140 mmol/L (136-145)
[2025-03-22 15:19] LABS: Anion Gap 10 (5-15); Calcium 10.4 mg/dL (8.7-10.4); Carbon Dioxide 26 mmol/L (20-31)
[2025-03-22 15:24] LABS: Blood Urea Nitrogen 56 mg/dL (9-23); Glucose 210 mg/dL (74-106)
== END | disposition home or self-care (01) ==
LOC: LAB 14:48
PROVIDERS: ATTEND Student in an Organized Health Care Education/Training Program
DX: E21.3 Hyperparathyroidism, unspecified (principal); E11.21 Type 2 diabetes mellitus with diabetic nephropathy; N18.30 Chronic kidney disease, stage 3 unspecified; D63.1 Anemia in chronic kidney disease; N39.0 Urinary tract infection, site not specified; R80.9 Proteinuria, unspecified; M10.9 Gout, unspecified; E55.9 Vitamin D deficiency, unspecified
CPT/HCPCS: 36415; 80048

== ENCOUNTER 2025-06-02 13:44 | Inpatient (IN) | payer MEDICARE, BC ==
[~2025-06-02] VITALS: Ht 177.8 cm; Wt 129.0 kg
--- NOTE | 2025-06-02 14:07 | ED.PDOC ---
HPI (NEURO) HPI Comments This is a 69 year old male presenting to the ED with chief complaint of numbness. Patient reports that he has been experiencing left cheek and left hand numbness for the past 3 weeks with associated off-balance walking. Patient relays that he had a CT ordered by his PCP which came back inconclusive, so an MRI was ordered as well. Patient states he got a call today from his PCP regarding the MRI results and was told to come into the ED right away due to a right parietal infarct being shown on the MRI results. Patient denies any weakness, facial droop, tingling, headache, chest pain, or syncope. Time Seen by MD: 13:58 Primary Care Provider: JOLIE Holm Notes: Nurses Notes, Medications, Allergies Information Source: Patient Mode of Arrival: Ambulatory Severity: Moderate Timing: Weeks Duration: Since onset Prehospital treatment: None Numbness Location: Other (Left cheek and left hand) Onset: At rest Circumstances: Spontaneous History of: CVA, DM, Hypertension Past Medical History PAST MEDICAL HISTORY: CKF, CVA, DM, High Lipids, HTN, Kidney Stones, Thyroid Surgical History: Appendectomy Family History Family History: Reviewed,noncontributory to illness, Family hx of DM, Family hx of Cancer, Family hx of heart shamika Social History Smoker: Non-Smoker Alcohol: Occasionally Drugs: Denies Drug Use Lives In: Home Constitutional: denies: chills, diaphoresis, fatigue, fever, malaise, sweats, weakness, others EENTM: denies: blurred vision, double vision, ear bleeding, ear discharge, ear drainage, ear pain, ear ringing, eye pain, eye redness, hearing loss, mouth pain, mouth swelling, nasal discharge, nose bleeding, nose congestion, nose pain, photophobia, tearing, throat pain, throat swelling, voice changes, others Respiratory: denies: cough, hemoptysis, orthopnea, SOB at rest, shortness of breath, SOB with excertion, stridor, wheezing, others Cardiovascular: denies: chest pain, dizzy spells, diaphoresis, Dyspnea on exertion, edema, irregular heart beat, left arm pain, lightheadedness, palpitations, PND, syncope, others Gastrointestinal: denies: abdomen distended, abdominal pain, blood streaked bowels, constipated, diarrhea, dysphagia, difficulty swallowing, hematemesis, melena, nausea, poor appetite, poor fluid intake, rectal bleeding, rectal pain, vomiting, others Genitourinary: denies: burning, dysuria, flank pain, frequency, hematuria, incontinence, penile discharge, penile sore, pain, testicle pain, testicle swelling, urgency, others Neurological: reports: numbness; denies: dizziness, fainting, headache, left sided numbness, left sided weakness, paresthesia, pre-existing deficit, right sided numbness, right sided weakness, seizure, speech problems, tingling, tremors, weakness, others Musculoskeletal: denies: back pain, gout, joint pain, joint swelling, muscle pain, muscle stiffness, neck pain, others Integumetry: denies: bruises, change in color, change in hair/nails, dryness, laceration, lesions, lumps, rash, wounds, others Allergic/Immunocompromised: denies: Difficulty Healing, Frequent Infections, Hives, Itching, others Hematologic/Lymphatic: denies: anemia, blood clots, easy bleeding, easy bruising, swollen glands, others Endocrine: denies: excessive hunger, excessive sweating, excessive thirst, excessive urination, flushing, intolerance to cold, intolerance to heat, unexplained weight gain, unexplained weight loss, others Psychiatric: denies: anxiety, bipolar disorder, depression, hopeless, panic disorder, schizophrenia, sleepless, suicidal, others All Other Systems: Reviewed and Negative Physical Exam General Appearance: No Apparent Distress, Normal HEENT: Normal ENT Inspection, Pharynx Normal, TMs Normal Neck: Full Range of Motion, Non-Tender, Normal, Normal Inspection Respiratory: Chest Non-Tender, Lungs Clear, No Accessory Muscle Use, No Respiratory Distress, Normal Breath Sounds Cardiovascular: No Edema, No JVD, No Murmur, No Gallop, Normal Peripheral Pulses, Regular Rate/Rhythm Breast Exam: Deferred Gastrointestinal: No Organomegaly, Non Tender, No Pulsatile Mass, Normal Bowel Sounds, Soft Genitalia: Deferred Pelvic: Deferred Rectal: Deferred Extremities: No calf tenderness, Normal capillary refill, Normal inspection, Normal range of motion, Non-tender, No pedal edema Musculoskeletal : Apperance: Normal Neurologic: Alert, social media campaign manager II-XII nml as Tested, Normal Affect, Normal Mood, Other (Dysmetria of the left hand, wide based gait, subjective numbness to left cheek and hand. No facial asymmetry.) Cerebellar Function: Normal Reflexes: Normal Skin: Dry, Normal Color, Warm Lymphatic: No Adenopathy EKG EKG : Pulse Rate (adult): 77 Cardiac Rhythm: NSR, PAC's, PVC's Comments Anterior Q-waves and nonspecific ST changes Was a procedure done? Was a procedure done?: No Differential Diagnosis (SZ) CVA: Moore's Palsy, CVA, Encephalopathy, Hypoglycemia, Hypoxemia, Mass Lesion, SAH, TIA X-Ray, Labs, Meds, VS Vital Signs Date Time Temp Pulse Resp B/P (MAP) Pulse Ox O2 Delivery O2 Flow Rate FiO2 06/02/25 14:15 78 13 149/57 (87) 92 06/02/25 14:07 77 06/02/25 13:50 98.9 80 13 170/98 (122) 96 98.9 Lab Test 06/02/25 14:05 06/02/25 13:59 Range/Units White Blood Count Pending Red Blood Count Pending Hemoglobin Pending Hematocrit Pending Mean Corpuscular Volume Pending Mean Corpuscular Hemoglobin Pending Mean Corpuscular Hemoglobin Concent Pending Red Cell Distribution Width Pending Platelet Count Pending Mean Platelet Volume Pending Neutrophils (%) (Auto) Pending Lymphocytes (%) (Auto) Pending Monocytes (%) (Auto) Pending Basophils (%) (Auto) Pending Neutrophils # (Auto) Pending Lymphocytes # (Auto) Pending Monocytes # (Auto) Pending Sodium Level Pending Potassium Level Pending Chloride Level Pending Carbon Dioxide Level Pending Anion Gap Pending Blood Urea Nitrogen Pending Creatinine Pending Glomerular Filtration Rate Calc Pending BUN/Creatinine Ratio Pending Serum Glucose Pending Calcium Level Pending Troponin I High Sensitivity Pending POC Glucose 163 H 70-106 mg/dl Current Medications Medications (Trade) Dose Ordered Sig/Olinda Route Start Time Stop Time Status Last Admin Aspirin 325 mg ONCE ONCE PO 06/02/25 14:00 06/02/25 14:01 DC 06/02/25 14:19 Time of 1ST Reevaluation: 14:57 Reevaluation 1ST: Unchanged Time of 2ND Reevaluation: 14:27 Reevaluation 2ND: Unchanged Patient Education/Counseling: Diagnosis, Treatment, Prognosis, Need For Follow Up Family Education/Counseling: No Family Present Comments pt has been having symptoms for 3 weeks. he had a cty that showed chronic changes, so a mri was done, which showed a right parietal infarct. pt will be admitted for new CVA, with need for workup for the source and treatment Additional Information Reviewed patient's previous visit(s): 10/13/24 for Sepsis, 07/18/24 for Sepsis The following tests were ordered, and results were reviewed by me: Additional information was gathered from interviewing the following independent historian: None I reviewed and agreed with the following test results read by other provider: I discussed treatments and results with medical personnel and: Patient Comprehensive systems review obtained and negative except for what is stated in the HPI. Departure 1 Departure Time of Disposition: 14:28 Impression: Primary Impression: Stroke Qualified Codes: I63.9 - Cerebral infarction, unspecified Disposition: HOME / SELF CARE / HOMELESS Condition: Stable Discharged With: Self Critical Care Note Critical Care Time?: Yes (45 min-critical care time only) Critical care comment: due to concerns for patient's condition deteriorating, the care required my highest level of attention and readiness to intervene. i assessed the patient's condition, ordered the proper tests and treatments, reassessed for response and reviewed the results. i communicated with medical personnel and formulated a plan of care. total critical care time does not include any procedures Stability Stability form required: No Heart Score Heart Score: Heart Score Response (Comments) Value History N/A 0 EKG N/A 0 Age N/A 0 Risk Factors N/A 0 Troponin N/A 0 Total 0 I personally scribed for LUIS F ARRIAGA MD ([email or web address]) on 06/02/25 at 14:07. Electronically submitted by Garth Peter ([email or web address]). LUIS F ARRIAGA MD Jun 02, 2025 14:07
[2025-06-02 14:28] LABS: Hematocrit 39.0 % (41.0-53.0); Hemoglobin 12.9 g/dL (13.5-17.5); Mean Corpuscular Hemoglobin 27.5 pg (28.0-32.0); Mean Corpuscular Volume 83.0 fL (80.0-100.0); Nucleated Red Blood Cells % 0.0 %
[2025-06-02 14:36] LABS: Chloride 104 mmol/L (98-107); Sodium 145 mmol/L (136-145)
[2025-06-02 14:37] LABS: Anion Gap 11 (5-15); Carbon Dioxide 30 mmol/L (20-31)
[2025-06-02 14:38] LABS: Calcium 10.2 mg/dL (8.7-10.4)
[2025-06-02] MEDS: HYDROcodone-ACET 10/325MG TAB PO ONE (14:38)
[2025-06-02 14:42] LABS: BUN/Creatinine Ratio 30.9 (10.0-20.0)
[2025-06-02 14:48] LABS: Blood Urea Nitrogen 50 mg/dL (9-23); Glucose 144 mg/dL (74-106); Potassium 3.1 mmol/L (3.5-5.1)
[2025-06-02 14:52] VITALS: PULSE 79; RESP 15; O2SAT 94
[2025-06-02] MEDS: HYDROmorphone HCL 2 MG/ML VL/or syr IV ONE (15:04)
[2025-06-02] MEDS ORDERED: HYDROcodone-ACET 5/325MG TAB PO PRN (15:15)
[2025-06-02] MEDS ORDERED: ONDANSETRON HCL 4 MG/2 ML VIAL IV PRN (15:15)
[2025-06-02] MEDS ORDERED: ACETAMINOPHEN 325 MG TAB PO PRN (15:15)
--- NOTE | 2025-06-02 15:45 | DVHHP2 ---
History of Present Illness Reason for Visit: Left-sided weakness History of Present Illness 69-year-old male with a history of CVA on 2016 with left-sided deficits presents for worsening left-sided weakness. He was seen by his primary care provider and an MRI was ordered to a four + worsening left-sided weakness ongoing for the past three weeks. Today he was contacted by his PCP and advised to present to the emergency department due to results of the MRI showing an acute CVA. Denies slurred speech or headache. Past Medical History Diabetes mellitus, dyslipidemia, hypertension, CVA, chronic kidney disease, thyroid Past Surgical History Appendectomy Family History Diabetes mellitus and heart disease Smoke: No ALCOHOL: occassional Drugs: None Lives: with Family Review of Systems Review of Systems Review of systems are currently negative otherwise addressed in HPI. Allergies: Coded Allergies: Morphine (Verified Allergy, Unknown, 10/13/24) Medications Current Medications Medications Dose Ordered Sig/Olinda Route Start Time Stop Time Status Last Admin Dose Admin Amlodipine Besylate 10 mg DAILY PO 06/03/25 10:00 Aspirin 81 mg DAILY PO 06/03/25 10:00 Atorvastatin Calcium 40 mg HS PO 06/02/25 22:00 Pregabalin 50 mg DAILY PO 06/03/25 10:00 Acetaminophen/ Hydrocodone Bitart 1 tab Q4HP PRN PO 06/02/25 15:15 Ondansetron HCl 4 mg Q4HP PRN IV 06/02/25 15:15 Enoxaparin Sodium 30 mg DAILY SC 06/03/25 10:00 Acetaminophen 650 mg Q6HP PRN PO 06/02/25 15:15 Exam Vital Signs Vital Signs Date Time Temp Pulse Resp B/P (MAP) Pulse Ox O2 Delivery O2 Flow Rate FiO2 06/02/25 15:04 75 18 154/80 06/02/25 14:52 94 Nasal Cannula* 2 28 06/02/25 13:50 98.9 98.9 Exam Gen: 69-year-old male in mild distress, morbidly obese Skin: Warm, dry, normal color and texture, no rash. HEENT: Normocephalic atraumatic, mucous membranes moist and pink. Neck: Cervical and supraclavicular nodes normal without enlargement, trachea is midline, thyroid gland is normal without masses. Pulmonary: Clear to auscultation and percussion bilaterally. Cardiac: Regular rate and rhythm. No murmur Abdomen: Soft, nontender, nondistended, bowel sounds present all 4 quadrants, no guarding, no rigidity, no organomegaly. Extremities: No cyanosis, clubbing, no edema Neuro: Cranial nerves II through XII grossly intact, normal affect and speech, LUE 2/5, LLE 2/5, RUE 5/5, RLE 5/5 Labs/Xrays ORDERING PHYSICIAN: RUBI MARIEE PROCEDURE(s): MBHL - BRAIN HEAD WO CONTRAST REASON: CEREBRAL INFARCTION DUETO OCCLUSION OR STENOSIS ORDER NUMBER(s): [id number], ACCESSION NUMBER(s): [id number] ADDENDUM ADDENDUM # 1 Critical findings were discussed with ms. Richelle Paredes of provider [facility] office on 06/02/2025 at 2:[address] Antonio. ORIGINAL REPORT EXAMINATION: MRI BRAIN HEAD WO CONTRAST INDICATION: CEREBRAL INFARCTION DUETO OCCLUSION OR STENOSIS COMPARISON: CT scan of the head performed on 05/18/2025. TECHNIQUE: Multiplanar, multisequence magnetic resonance imaging of the brain was performed without the use of intravenous contrast. FINDINGS: There is a punctate focus of restricted diffusion in the right parietal lobe consistent with acute infarct. No intracranial hemorrhage. No mass effect. There is mild periventricular/deep white matter T2/FLAIR hyperintensity is nonspecific, but most commonly associated with chronic microvascular disease. The ventricles and sulci are normal in size for age. Clear basal cisterns. Flow voids in the major intracranial vessels are maintained. No abnormality of the orbits. Paranasal sinuses and mastoid air cells are clear. No abnormality of the visualized osseous structures and extracranial soft tissues. IMPRESSION: 1. Subcentimeter single acute infarct in the right parietal lobe. ATED BY: DONTE ANTONIO MD DICTATED DATE/TIME: 06/02/251220 SIGNED BY: DONTE ANTONIO MD SIGNED DATE/TIME: 06/02/251220 CC: EXAMINATION: MRI BRAIN HEAD WO CONTRAST INDICATION: CEREBRAL INFARCTION DUETO OCCLUSION OR STENOSIS COMPARISON: CT scan of the head performed on 05/18/2025. TECHNIQUE: Multiplanar, multisequence magnetic resonance imaging of the brain was performed without the use of intravenous contrast. FINDINGS: There is a punctate focus of restricted diffusion in the right parietal lobe consistent with acute infarct. No intracranial hemorrhage. No mass effect. There is mild periventricular/deep white matter T2/FLAIR hyperintensity is nonspecific, but most commonly associated with chronic microvascular disease. The ventricles and sulci are normal in size for age. Clear basal cisterns. Flow voids in the major intracranial vessels are maintained. No abnormality of the orbits. Paranasal sinuses and mastoid air cells are clear. No abnormality of the visualized osseous structures and extracranial soft tissues. IMPRESSION: 1. Subcentimeter single acute infarct in the right parietal lobe. Labs Test 06/02/25 15:06 06/02/25 14:05 06/02/25 13:59 Range/Units White Blood Count 11.5 H 4.4-10.8 10^3/uL Red Blood Count 4.70 4.5-5.90 10^6/uL Hemoglobin 12.9 L 13.5-17.5 g/dL Hematocrit 39.0 L 41.0-53.0 % Mean Corpuscular Volume 83.0 80.0-100.0 fL Mean Corpuscular Hemoglobin 27.5 L 28.0-32.0 pg Mean Corpuscular Hemoglobin Concent 33.1 32.0-36.0 g/dL Red Cell Distribution Width 14.5 H 11.8-14.3 % Platelet Count 239 140-450 10^3/uL Mean Platelet Volume 8.8 6.9-10.8 fL Neutrophils (%) (Auto) 76.4 37.0-80.0 % Lymphocytes (%) (Auto) 14.4 10.0-50.0 % Monocytes (%) (Auto) 6.9 0.0-12.0 % Eosinophils (%) (Auto) 1.9 0.0-7.0 % Basophils (%) (Auto) 0.4 0.0-2.0 % Neutrophils # (Auto) 8.8 H 1.6-8.6 10 ^3/uL Lymphocytes # (Auto) 1.7 0.4-5.4 10 ^3/uL Monocytes # (Auto) 0.8 0-1.3 10 ^3/uL Eosinophils # (Auto) 0.2 0-0.8 10 ^3/uL Basophils # (Auto) 0 0-0.2 10 ^3/uL Nucleated Red Blood Cells 0.0 % Sodium Level 145 136-145 mmol/L Potassium Level 3.1 L 3.5-5.1 mmol/L Chloride Level 104 98-107 mmol/L Carbon Dioxide Level 30 20-31 mmol/L Anion Gap 11 5-15 Blood Urea Nitrogen 50 H 9-23 mg/dL Creatinine 1.62 H 0.700-1.30 mg/dL Glomerular Filtration Rate Calc 46 >90 mL/min BUN/Creatinine Ratio 30.9 H 10.0-20.0 Serum Glucose 144 H 74-106 mg/dL Calcium Level 10.2 8.7-10.4 mg/dL POC Glucose 163 H 70-106 mg/dl Assessment/Plan Assessment/Plan Assessment Acute CVA, nonhemorrhagic Hypertension Diabetes mellitus Chronic kidney disease Electrolyte imbalance Morbid obesity Plan Admit the patient to [facility] [place]ist Neurology consultation Resume home medications Continue treatment per orders. Plan discussed with: Patient My Orders Orders - ROXANNE LIVINGSTON Procedure Category Date Status Time * Neurology Consult CONS 06/02/25 Transmitted 15:05 Amlodipine Tablet PHA 06/03/25 In Process (Norvasc Tablet) 10:00 Aspirin Tablet PHA 06/03/25 In Process 10:00 Atorvastatin (Lipitor) PHA 06/02/25 In Process 22:00 Pregabalin Capsule PHA 06/03/25 In Process (Lyrica Capsule) 10:00 Basic Metabolic Panel LAB 06/03/25 Verified 04:00 Admit ADMIT 06/02/25 Transmitted 15:05 Hydrocodone-Acet PHA 06/02/25 In Process 5/325mg Tab (Aptos 15:15 Ondansetron Hcl PHA 06/02/25 In Process (Zofran) 15:15 Cardiac DIET 06/02/25 Transmitted Diet-2gna,Lofat,Lochol Dinner Condition: Stable TYLOR 06/02/25 In Process 15:05 Enoxaparin Sodium PHA 06/03/25 In Process (Lovenox) 10:00 Acetaminophen Tablet PHA 06/02/25 In Process (Tylenol Tablet) 15:15 Bedrest With Bathroom TYLOR 06/02/25 In Process Privileg 15:05 Date of Service: Jun 02, 2025 Billing Provider: ROXANNE LIVINGSTON Common Visit Codes: [id number] INP/OBS CARE (HIGH) ROXANNE LIVINGSTON Jun 02, 2025 15:45
[2025-06-02] MEDS: POTASSIUM CHL 20 Meq TABLET PO ONE (15:53)
[2025-06-02 16:04] VITALS: PULSE 76; RESP 20; O2SAT 99
[2025-06-02 16:21] VITALS: BP 162/98; PULSE 76; RESP 22; TEMP 98.2; O2SAT 99
--- NOTE | 2025-06-02 20:46 | DVHINCON2 ---
Date of service: Jun 02, 2025 Referring Physician Tobias Reason for Consultation Acute stroke History of Present Illness Mr. Escoto is a 69 years old right-handed gentleman with a history of hypertension, diabetes, dyslipidemia, hypothyroidism, kidney stone, obesity, sleep apnea, he was brought to the [facility] on 06/02/25 with a chief of complaint paresthesia. At that time, he is alert, oriented x3, he provided the following history I saw him on 10/14/2025 for syncope He has a history of stroke in 2016, and he has residual left-sided weakness paresthesia, that will be further described, since the end of 05/2025, he has noticed intense fight numbness and weakness in the left face, arm, and the leg, he came to the [facility] on 06/02/2025 and MRI showed evidence of acute In 2015, the patient had acute left-sided weakness, and he was said to have stroke in the [facility] (Not confirmed with our EMR). He does not have complete recovery. At home, he is on aspirin 81 mg one daily, Lipitor 40 mg daily He has tingling, numbness and sharp pain in the lower extremities, he is on Lyrica 100 mg b.i.d. He has sleep apnea, he is on CPAP treatment, he came to the hospital with his CPAP machine WBC/HB/PLT/MCV 06/02/2025: 11.5/12.9/339/83 CR, 06/02/2025: 50/1.62 GFR 06/02/2025: 46 Vitamin B12, 10/14/2024: 446 TG/HDL/LDL/GERD, 03/15/2025: 198/134/56/34 CT head, 10/13/2024: 1. No acute intracranial abnormality. 2. Mild chronic microvascular ischemic change. 3. Chronic lacunar infarct in the right thalamus 4. Paranasal sinus mucosal thickening and near-complete opacification of the right maxillary sinus. Correlate clinically for acute sinusitis CT TSP, 10/15/24: 1. There is no acute osseous abnormality in the thoracic spine. 2. Exaggerated thoracic kyphosis with multilevel degenerative disc changes. There is no large posterior classic disc herniation. There is no spinal canal or obvious bony foraminal stenosis. 3. Bilateral pleural effusions with airspace disease versus atelectasis in the posterior lower lobes CT, left foot, 10/14/2024: 1. Moderate focal soft tissue swelling in the medial plantar mid/ forefoot at the level of the amputated proximal 1st metatarsal . This could be postoperative or phlegmon. No well-formed fluid collection at this time to suggest abscess. 2. Prior amputation of the 1st digit at the level of the proximal metatarsal. 3. No evidence of acute fracture or osteomyelitis. 4. Moderate degenerative changes of the midfoot with subchondral lucencies and joint space narrowing MRI Head, 09/08/2024: 1. No evidence of acute intracranial pathology. 2. Mild diffuse volume loss with minimal chronic microvascular ischemic disease in the periventricular and deep white matter. 3. Old lacunar infarct in the right thalamus MRI head, 06/02/2025: Subcentimeter single acute infarct in the right parietal lobe Past Medical History Hypertension, diabetes, dyslipidemia, hypothyroidism, kidney stone, obesity, sleep apnea Past Surgical History Appendectomy, left great toe amputation Family History: Alzheimer's disease G8 MOTHER, Cardiovascular disease G8 MOTHER, Colon cancer G8 FATHER, G8 SISTER Congenital anomaly Diabetes mellitus G8 MOTHER, FH: dementia G8 MOTHER, Family history: Diabetes mellitus G8 MOTHER, G8 BROTHER Hypertension G8 MOTHER, Family History Hypotension,diabetes, heart disease, dementia, cancer Social History He has not tobacco smoke, he denies a history of alcohol or recreational substance abuse Allergies: Coded Allergies: Morphine (Verified Allergy, Unknown, 10/13/24) Home Meds Active Scripts Cefpodoxime Proxetil (Cefpodoxime Proxetil) 200 Mg Tab, 1 TAB PO DAILY for 20 Days, #20 TAB Prov:KINGS ALVAREZ MD 11/03/24 Hydrochlorothiazide (Hydrochlorothiazide) 25 Mg Tab, 25 MG PO DAILY for 30 Days, #30 MG 5 Refills Prov:MELISSA READ MD 05/18/24 Polyethylene Glycol 3350 (Miralax) 17 Gm Pow, 17 GM PO BID for 30 Days, #60 POW Prov:MANDY LARES RESIDENT 08/11/23 Insulin Detemir (Levemir) Inj, 20 UNITS SC BID for 30 Days, #60 INJ Prov:MANDY LARES RESIDENT 08/11/23 Reported Medications Pregabalin (Pregabalin) 50 Mg Cap, 1 CAP PO TID 8/21/24 Oxycodone W/ Acetaminophen (Percocet 5/325MG) 1 Tab Tb, 1 TAB PO Q6HPRN PRN for MODERATE PAIN (4-6 PAIN SCALE), #90 TAB 03/04/23 Pregabalin (Lyrica) 50 Mg Cap, 1 CAP PO TID, #90 CAP 03/04/23 Amlodipine Besylate (NORVASC TABLET) 5 Mg Tb, 10 MG PO DAILY, TAB 03/04/23 Triazolam (Halcion) 0.25 Mg Tab, 2 TAB PO QPM, #60 TAB 05/01/18 Sitagliptin Phosphate (Januvia) 50 Mg Tab, 100 MG PO DAILY, #30 TAB 5 Refills 05/01/18 Glipizide (Glipizide) 10 Mg Tab, 10 MG PO BID for 30 Days, MG 05/01/18 Atorvastatin Calcium (ATORVASTATIN CALCIUM) 40 Mg Tab, 1 TAB PO DAILY, #30 TAB 5 Refills 05/01/18 Aspirin (Aspir-Low) 81 Mg Tab, 81 MG PO DAILY for 30 Days, MG 05/01/18 Lisinopril (Lisinopril) 40 Mg Tab, 40 MG PO DAILY for 30 Days, MG 03/11/18 Metformin Hydrochloride (Metformin Hcl) 500 Mg Tab, 500 MG PO BID for 30 Days, MG 03/20/17 Current Medications Current Medications Medications (Trade) Dose Ordered Sig/Olinda Route PRN Reason Start Time Stop Time Status Last Admin Amlodipine Besylate (Norvasc Tablet) 10 mg DAILY PO 06/03/25 10:00 Aspirin 81 mg DAILY PO 06/03/25 10:00 Atorvastatin Calcium (Lipitor) 40 mg HS PO 06/02/25 22:00 Pregabalin (Lyrica Capsule) 50 mg DAILY PO 06/03/25 10:00 Acetaminophen/ Hydrocodone Bitart ([place] 5/325MG Tab) 1 tab Q4HP PRN PO MODERATE PAIN (4-6 PAIN SCALE) 06/02/25 15:15 Ondansetron HCl (Zofran) 4 mg Q4HP PRN IV NAUSEA / VOMITING 06/02/25 15:15 Enoxaparin Sodium (Lovenox) 30 mg DAILY SC 06/03/25 10:00 Acetaminophen (Tylenol Tablet) 650 mg Q6HP PRN PO PAIN SCALE 1-3 OR TEMP>100.4 06/02/25 15:15 Review of Systems As above, the other systems are negative Vital Signs Vital Signs Date Time Temp Pulse Resp B/P (MAP) Pulse Ox O2 Delivery O2 Flow Rate FiO2 06/02/25 16:21 98.2 76 22 162/98 (119) 99 98.2 06/02/25 16:04 Nasal Cannula* 2 28 Physical Exam GENERAL EXAM: General: the patient is well developed and nourished. No acute distress. HEENT: Normocephalic, neck is supple, no carotid bruits. No mass. RESPIRATORY: Normal respiratory effort with symmetrical lung expansion. Lungs clear to auscultation. CARDIOVASCULAR: Regular rate and rhythm with no murmurs. S1, S2. ABDOMEN: Soft, nontender, normal bowel sound Hammertoes in both feet. Status post left big toe amputation Diffuse tenderness to palpation in the back, extremities NEUROLOGICAL: MENTAL STATUS: Awake and alert. Oriented to person, SPEECH, LANGUAGE, HIGHER CORTICAL FUNCTION: no aphasia or dysathria. CRANIAL NERVES: #2: Intact visual horn to confrontation. The optic discs were sharp. #3,4,6: Pupils are equal, round and reactive. EOMs full and conjugate. No nystagmus. #5: Facial sensation is diminished in the left face. Mandibular strength intact. #7: Facial muscles symmetrical and strength intact. #8: Hearing grossly normal to voice. #9,10: Uvula and soft palate rise in the midline. Swallow and voice are normal. #11: Trapezius and sternomastoid strength intact bilaterally. #12: Tongue midline. No fasciculations or atrophy. SENSATION: Sensation to touch and pinprick is diminished distally in the lower extremities, upper extremities, and central portion of the stomach wall Pinprick and light touch is diminished in the left arm than leg MOTOR: Normal tone in the upper and lower extremity. Normal muscle bulk. No fasciculations. No abnormal movements or posturing. Muscle strength of the major groups in the upper extremities is 4/5. Muscle strength of the major groups in the lower extremities is 4/5 REFLEXES: Deep tendon reflex Labs/Diagnostic Data Labs Test 06/02/25 17:17 06/02/25 14:05 06/02/25 13:59 Range/Units Troponin I High Sensitivity 27 </=54 ng/L White Blood Count 11.5 H 4.4-10.8 10^3/uL Red Blood Count 4.70 4.5-5.90 10^6/uL Hemoglobin 12.9 L 13.5-17.5 g/dL Hematocrit 39.0 L 41.0-53.0 % Mean Corpuscular Volume 83.0 80.0-100.0 fL Mean Corpuscular Hemoglobin 27.5 L 28.0-32.0 pg Mean Corpuscular Hemoglobin Concent 33.1 32.0-36.0 g/dL Red Cell Distribution Width 14.5 H 11.8-14.3 % Platelet Count 239 140-450 10^3/uL Mean Platelet Volume 8.8 6.9-10.8 fL Neutrophils (%) (Auto) 76.4 37.0-80.0 % Lymphocytes (%) (Auto) 14.4 10.0-50.0 % Monocytes (%) (Auto) 6.9 0.0-12.0 % Eosinophils (%) (Auto) 1.9 0.0-7.0 % Basophils (%) (Auto) 0.4 0.0-2.0 % Neutrophils # (Auto) 8.8 H 1.6-8.6 10 ^3/uL Lymphocytes # (Auto) 1.7 0.4-5.4 10 ^3/uL Monocytes # (Auto) 0.8 0-1.3 10 ^3/uL Eosinophils # (Auto) 0.2 0-0.8 10 ^3/uL Basophils # (Auto) 0 0-0.2 10 ^3/uL Nucleated Red Blood Cells 0.0 % Sodium Level 145 136-145 mmol/L Potassium Level 3.1 L 3.5-5.1 mmol/L Chloride Level 104 98-107 mmol/L Carbon Dioxide Level 30 20-31 mmol/L Anion Gap 11 5-15 Blood Urea Nitrogen 50 H 9-23 mg/dL Creatinine 1.62 H 0.700-1.30 mg/dL Glomerular Filtration Rate Calc 46 >90 mL/min BUN/Creatinine Ratio 30.9 H 10.0-20.0 Serum Glucose 144 H 74-106 mg/dL Calcium Level 10.2 8.7-10.4 mg/dL POC Glucose 163 H 70-106 mg/dl Assessment Acute stroke with worsened left hemiparesis and weakness Chronic stroke with residual left-sided weakness numbness Polyneuropathy Sleep apnea on CPAP machine Obesity Plan/Recommendation Monitoring Supportive treatment Telemetry Carotid Doppler Echocardiogram ASA 81mg Qd with Plavix 75mg Qd Lipitor 40 mg daily Lyrica 100 mg b.i.d. CPAP the hospital Foot care Daily foot inspection More recommendation per clinical course Progress: Poor This medical document was created using an electronic medical record system with intelloCut dictation system. Although this document has been carefully reviewed, there may still be some phonetic and typographical errors. These areas are purely typographical due to imperfections of the software programs, and do not reflect any compromise in the patient's medical care. Plan discussed with: Patient, Other SOLOMON KRISHNAN MD Jun 02, 2025 20:46
[2025-06-02 20:55] VITALS: BP 157/64; PULSE 63; RESP 19; TEMP 98.2; O2SAT 95
[2025-06-02] MEDS: ATORVASTATIN 20 MG TAB PO SCH (20:59)
[2025-06-02] MEDS ORDERED: MORPHINE SULFATE INJ 2 MG/ml SYRG IV PRN (21:15)
[2025-06-02] MEDS: KETOROLAC TROMETH 30 MG/ML 1ML VIAL IV ONE (21:30)
[2025-06-02] MEDS ORDERED: PREGABALIN 25 MG CAP PO ONE (21:45)
--- NOTE | 2025-06-02 23:01 | DVH ---
Carotid Duplex Date: 06/02/2025 10:29 PM Clinical History: cva Comparison: US CAROTID DUPLX W COLOR DOP on DOS: 10/14/24 Technique: Duplex doppler evaluation of the extracranial carotid and vertebral arteries including col or doppler and spectral/pulsed waveform analysis was performed. Findings: RIGHT SIDE: There is mild plaque at the carotid bulb. The peak systolic velocities are 95 cm/s in the distal CCA and 88 cm/s in the proximal ICA. The external carotid artery is patent with peak systolic velocity of 81 cm/s proximally. There is appropriate antegrade flow in the right vertebral artery. LEFT SIDE: There is mild plaque at the carotid bulb extending into the left proximal carotid artery. The peak systolic velocities are 86 cm/s in the distal CCA and 70cm/s in the proximal ICA. The ICA/C CA ratio is 0.8. The external carotid artery is patent with peak systolic velocity of 105 cm/s proximally. There is appropriate antegrade flow in the left vertebral artery. IMPRESSION: 1. No hemodynamically significant stenosis noted in the right carotid system. 2. No hemodynamically significant stenosis noted in the left carotid system. 3. Mild carotid bulb plaque bilaterally 4. Reference: Radiology 2003; 229:340-346
[2025-06-03 01:00] VITALS: BP 166/92; PULSE 65; RESP 20; TEMP 98.5; O2SAT 96
[2025-06-03 01:38] VITALS: BP 162/98; PULSE 63; RESP 20; O2SAT 99
[2025-06-03] MEDS: HYDROmorphone HCL 2 MG/ML VL/or syr IV ONE ×2 (04:19→13:23)
[2025-06-03] MEDS: CLOPIDOGREL BISULFATE 75 MG TAB PO ONE (04:19)
[2025-06-03] MEDS: PREGABALIN 25 MG CAP PO SCH ×2 (04:21→10:15)
[2025-06-03 05:00] VITALS: BP 143/97; PULSE 65; RESP 19; TEMP 98.2; O2SAT 90; O2SAT 98
[2025-06-03 07:14] LABS: Chloride 104 mmol/L (98-107); Sodium 143 mmol/L (136-145)
[2025-06-03 07:15] LABS: Anion Gap 9 (5-15); Carbon Dioxide 30 mmol/L (20-31)
[2025-06-03 07:16] LABS: Calcium 10.0 mg/dL (8.7-10.4)
[2025-06-03 07:19] LABS: Potassium 2.8 mmol/L (3.5-5.1)
[2025-06-03 07:20] LABS: BUN/Creatinine Ratio 25.4 (10.0-20.0)
[2025-06-03 07:25] LABS: Blood Urea Nitrogen 35 mg/dL (9-23); Glucose 112 mg/dL (74-106)
[2025-06-03] MEDS: CLOPIDOGREL BISULFATE 75 MG TAB PO SCH (10:16)
[2025-06-03] MEDS: ENOXAPARIN SOD 30 MG/0.3 ML SYRINGE SC SCH (10:16)
--- NOTE | 2025-06-03 12:42 | DVHPN2 ---
Reviewed: Care Plan, H&P, Labs, Medications, Previous Orders, Radiology Changes from previous H/P or p: No Changes Objective Vitals Vital Signs Date Time Temp Pulse Resp B/P (MAP) Pulse Ox O2 Delivery O2 Flow Rate FiO2 06/03/25 10:16 152/79 06/03/25 08:08 Nasal Cannula* 2 28 06/03/25 05:00 98.2 65 19 98 98.2 Intake/Output Intake and Output 06/03/25 07:00 Intake Total 2040 ml Balance 2040 ml Intake Oral 2040 ml # Voids 2 Medications Current Medications Medications Dose Ordered Sig/Olinda Route Start Time Stop Time Status Last Admin Dose Admin Amlodipine Besylate 10 mg DAILY PO 06/03/25 10:00 06/03/25 10:16 10 MG Aspirin 81 mg DAILY PO 06/03/25 10:00 06/03/25 10:15 81 MG Atorvastatin Calcium 40 mg HS PO 06/02/25 22:00 06/02/25 20:59 40 MG Pregabalin 50 mg DAILY PO 06/03/25 10:00 06/03/25 10:15 50 MG Acetaminophen/ Hydrocodone Bitart 1 tab Q4HP PRN PO 06/02/25 15:15 Ondansetron HCl 4 mg Q4HP PRN IV 06/02/25 15:15 Enoxaparin Sodium 30 mg DAILY SC 06/03/25 10:00 06/03/25 10:16 30 MG Acetaminophen 650 mg Q6HP PRN PO 06/02/25 15:15 Morphine Sulfate 2 mg Q6HPRN PRN IV 06/02/25 21:15 Hold Clopidogrel Bisulfate 75 mg DAILY PO 06/03/25 10:00 06/24/25 23:00 06/03/25 10:16 75 MG Pregabalin 100 mg BID PO 06/02/25 22:00 06/03/25 04:21 100 MG Laboratory Results Laboratory Tests 06/02/25 14:05 06/03/25 06:09 Chemistry Test 06/02/25 14:05 06/03/25 06:09 Calcium Level 10.2 mg/dL (8.7-10.4) 10.0 mg/dL (8.7-10.4) Labs and/or images reviewed: Labs reviewed by me, Image(s) reviewed by me Assessment/Plan Assessment/Plan Acute ischemic stroke with right parietal infarct Acute left hemiparesis History of stroke 2016 with left hemiplegia Hypotension Diabetes mellitus Chronic kidney disease Electrolyte imbalance Morbid obesity Chronic pain syndrome: Dilaudid 2 mg IV q.4 hours p.r.n. Plan discussed with: Patient My Orders Orders - ROWENA MEREDITH MD Procedure Category Date Status Time Wound Culture W/ Gs CAMDEN 06/03/25 In Process 11:26 Date of Service: Jun 03, 2025 Billing Provider: ROWENA MEREDITH MD Common Visit Codes: [id number] INP/OBS CARE(HIGH) ROWENA MEREDITH MD Jun 03, 2025 12:42
[2025-06-03 13:00] VITALS: BP 156/76; PULSE 61; RESP 17; TEMP 98.2; O2SAT 95
[2025-06-03 17:00] VITALS: BP_SYST 139; BP_SYST 155; BP_DIAS 69; BP_DIAS 80; PULSE 43; RESP 17; TEMP 98.6; O2SAT 95
[2025-06-03] MEDS: HYDROmorphone HCL 2 MG/ML VL/or syr IV PRN (17:38)
[2025-06-03 21:00] VITALS: BP 134/77; PULSE 56; RESP 22; TEMP 98.2; O2SAT 93
[2025-06-04 00:51] VITALS: BP 144/63; PULSE 63; RESP 18; TEMP 97.7; O2SAT 96
[2025-06-04 05:00] VITALS: BP 153/80; PULSE 65; RESP 16; TEMP 97.6; O2SAT 92
--- NOTE | 2025-06-04 06:38 | DVHSR ---
APPROVED REPORT EXAM: Two-dimensional and M-mode echocardiogram with Doppler and color Doppler. Blood Pressure: 143/97 mmHg INDICATION CVA/TIA: RISK FACTORS Obesity: Height: 5' 10", Weight: 224 DIMENSIONS LVDd5.3 (3.8-5.7cm)LA (2D)4.7 (1.9-4.0cm)Aortic Root3.9 (2.0-3.7cm) LVDs3.6 (2.5-4.0cm)LA (MM) (1.9-4.0cm)Aortic Cusp Exc2.0 (1.5-2.0cm) EF (%) 60.0 (55-70%)Rt. Atrium4.9 (1.9-4.0cm)Asc. Aorta cm IVSd1.4 (0.7-1.1cm)RV (D) (1.8-2.4cm) PWd1.3 (0.7-1.1cm) Mitral Valve MitralMitral Stenosis E wave1.30m/sMV Mean GR.mmHg A wave0.80m/sMV Peak GR.mmHg E/A ratio1.62D MVAcm2 Aortic Valve Aortic ValveAortic Stenosis V11.40m/Sofie Mean GR.6mmHg V21.70m/Sofie Peak GR.12mmHg LVOT Diameter2.4 (1.8-2.4cm)Doppler AVA3.72cm2 Pulmonic Valve V20.60m/s Tricuspid Valve TR Velocity2.40m/s [id number] Conclusion lvef 60% mild LVH normal rv function no severe valve abnormalities noted left atrium enlarged veryl imited study
--- NOTE | 2025-06-04 06:39 | ECG ---
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
--- NOTE | 2025-06-04 08:43 | DVHPN2 ---
Reviewed: Care Plan, H&P, Labs, Medications, Previous Orders, Radiology Changes from previous H/P or p: No Changes Objective Vitals Vital Signs Date Time Temp Pulse Resp B/P (MAP) Pulse Ox O2 Delivery O2 Flow Rate FiO2 06/04/25 07:11 60 18 140/62 06/04/25 05:00 97.6 92 97.6 06/03/25 20:00 Nasal Cannula* 2 28 Intake/Output Intake and Output 06/04/25 07:00 Intake Total 1450 ml Balance 1450 ml Intake Oral 1450 ml # Voids 10 Medications Current Medications Medications Dose Ordered Sig/Olinda Route Start Time Stop Time Status Last Admin Dose Admin Amlodipine Besylate 10 mg DAILY PO 06/03/25 10:00 06/03/25 10:16 10 MG Aspirin 81 mg DAILY PO 06/03/25 10:00 06/03/25 10:15 81 MG Atorvastatin Calcium 40 mg HS PO 06/02/25 22:00 06/03/25 21:55 40 MG Ondansetron HCl 4 mg Q4HP PRN IV 06/02/25 15:15 Enoxaparin Sodium 30 mg DAILY SC 06/03/25 10:00 06/03/25 10:16 30 MG Acetaminophen 650 mg Q6HP PRN PO 06/02/25 15:15 Morphine Sulfate 2 mg Q6HPRN PRN IV 06/02/25 21:15 Hold Clopidogrel Bisulfate 75 mg DAILY PO 06/03/25 10:00 06/24/25 23:00 06/03/25 10:16 75 MG Pregabalin 100 mg BID PO 06/02/25 22:00 06/03/25 21:55 100 MG Hydromorphone HCl 2 mg Q4HPRN PRN IV 06/03/25 12:45 06/04/25 06:41 2 MG Laboratory Results Laboratory Tests 06/02/25 14:05 06/03/25 06:09 Labs and/or images reviewed: Labs reviewed by me, Image(s) reviewed by me Assessment/Plan Assessment/Plan Acute ischemic stroke with right parietal infarct neurology consult by Dr. Sheridan appreciated Acute left hemiparesis History of stroke 2016 with left hemiplegia Hypertension Uncontrolled Diabetes mellitus Chronic kidney disease Electrolyte imbalance Morbid obesity Chronic pain syndrome: Dilaudid 2 mg IV q.4 hours p.r.n. Patient with [facility] discussed with: Patient My Orders Orders - ROWENA MEREDITH MD Procedure Category Date Status Time Wound Culture W/ Gs [place] 06/03/25 In Process 11:26 Hydromorphone PHA 06/03/25 In Process Injection (Dilaudid 12:45 Pt Request For Service PT 06/03/25 Logged 12:42 Apply: TYLOR 06/03/25 In Process 11:22 * Dietary Consult CONS 06/03/25 Transmitted 15:45 Date of Service: Jun 04, 2025 Billing Provider: ROWENA MEREDITH MD Common Visit Codes: [id number] INP/OBS CARE(HIGH) ROWENA MEREDITH MD Jun 04, 2025 08:43
[2025-06-04 09:00] VITALS: BP 158/67; PULSE 57; RESP 16; TEMP 98.2; O2SAT 90
[2025-06-04 13:00] VITALS: BP 145/76; PULSE 59; RESP 16; TEMP 97.4; O2SAT 94
[2025-06-04 17:00] VITALS: BP 153/68; PULSE 69; RESP 17; TEMP 98.6; O2SAT 94
[2025-06-04 21:00] VITALS: BP 105/75; PULSE 72; RESP 20; TEMP 99; O2SAT 95
[2025-06-05 01:00] VITALS: BP 152/95; PULSE 63; RESP 18; TEMP 97.8; O2SAT 94
[2025-06-05 09:00] VITALS: BP 116/83; PULSE 56; RESP 17; TEMP 98; O2SAT 96
[2025-06-05] MEDS ORDERED: CLIN1CAP70 PO (09:25)
--- NOTE | 2025-06-05 09:28 | DVHPN2 ---
Reviewed: Care Plan, H&P, Labs, Medications, Previous Orders, Radiology Changes from previous H/P or p: No Changes Objective Vitals Vital Signs Date Time Temp Pulse Resp B/P (MAP) Pulse Ox O2 Delivery O2 Flow Rate FiO2 06/05/25 09:06 56 17 116/83 06/05/25 01:00 97.8 94 97.8 06/04/25 20:23 Nasal Cannula* 2 28 Intake/Output Intake and Output 06/05/25 07:00 Intake Total 2800 ml Balance 2800 ml Intake Oral 2800 ml # Voids 8 # Bowel Movements 2 Medications Current Medications Medications Dose Ordered Sig/Olinda Route Start Time Stop Time Status Last Admin Dose Admin Amlodipine Besylate 10 mg DAILY PO 06/03/25 10:00 06/05/25 09:06 10 MG Aspirin 81 mg DAILY PO 06/03/25 10:00 06/05/25 09:05 81 MG Atorvastatin Calcium 40 mg HS PO 06/02/25 22:00 06/04/25 21:53 40 MG Ondansetron HCl 4 mg Q4HP PRN IV 06/02/25 15:15 Enoxaparin Sodium 30 mg DAILY SC 06/03/25 10:00 06/05/25 09:05 30 MG Acetaminophen 650 mg Q6HP PRN PO 06/02/25 15:15 Morphine Sulfate 2 mg Q6HPRN PRN IV 06/02/25 21:15 Hold Clopidogrel Bisulfate 75 mg DAILY PO 06/03/25 10:00 06/24/25 23:00 06/05/25 09:05 75 MG Pregabalin 100 mg BID PO 06/02/25 22:00 06/05/25 09:05 100 MG Hydromorphone HCl 2 mg Q4HPRN PRN IV 06/03/25 12:45 06/05/25 09:06 2 MG Laboratory Results Laboratory Tests 06/02/25 14:05 06/03/25 06:09 Microbiology Microbiology Date/Time Source Procedure Growth Status 06/03/25 11:32 Foot Left Gram Stain - Final Resulted 06/03/25 11:32 Foot Left Wound Culture - Preliminary Resulted Labs and/or images reviewed: Labs reviewed by me, Image(s) reviewed by me Assessment/Plan Assessment/Plan Acute ischemic stroke with right parietal infarct neurology consult by Dr. Sheridan appreciated Acute left hemiparesis History of stroke 2016 with left hemiplegia Hypertension Uncontrolled Diabetes mellitus Chronic kidney disease Electrolyte imbalance Chronic left foot diabetic wound infection: He follows with Dr. Watts Morbid obesity Chronic pain syndrome: Dilaudid 2 mg IV q.4 hours p.r.n. Patient with [facility] Plan discussed with: Patient My Orders Orders - ROWENA MEREDITH MD Procedure Category Date Status Time Home Health Nursing REFER 06/05/25 Verified 09:25 * [employer] CONS 06/05/25 Verified Consult Date of Service: Jun 05, 2025 Billing Provider: ROWENA MEREDITH MD Common Visit Codes: [id number] INP/OBS CARE(HIGH) ROWENA MEREDITH MD Jun 05, 2025 09:28
[2025-06-05 09:31] VITALS: O2SAT 95
--- NOTE | 2025-06-05 09:34 | DVHDS2 ---
Discharge Summary Date of Admission Jun 02, 2025 at 15:05 Date of Discharge: Jun 05, 2025 Admitting Diagnosis Left-sided weakness Wounds: Chronic left foot diabetic wound infection Labs/Diagnostic Data: Laboratory Results Test 06/03/25 06:09 06/02/25 17:17 06/02/25 14:05 06/02/25 13:59 Sodium Level 143 mmol/L (136-145) Potassium Level 2.8 mmol/L (3.5-5.1) Chloride Level 104 mmol/L (98-107) Carbon Dioxide Level 30 mmol/L (20-31) Anion Gap 9 (5-15) Blood Urea Nitrogen 35 mg/dL (9-23) Creatinine 1.38 mg/dL (0.700-1.30) Glomerular Filtration Rate Calc 56 mL/min (>90) BUN/Creatinine Ratio 25.4 (10.0-20.0) Serum Glucose 112 mg/dL (74-106) Calcium Level 10.0 mg/dL (8.7-10.4) Troponin I High Sensitivity 27 ng/L (</=54) White Blood Count 11.5 10^3/uL (4.4-10.8) Red Blood Count 4.70 10^6/uL (4.5-5.90) Hemoglobin 12.9 g/dL (13.5-17.5) Hematocrit 39.0 % (41.0-53.0) Mean Corpuscular Volume 83.0 fL (80.0-100.0) Mean Corpuscular Hemoglobin 27.5 pg (28.0-32.0) Mean Corpuscular Hemoglobin Concent 33.1 g/dL (32.0-36.0) Red Cell Distribution Width 14.5 % (11.8-14.3) Platelet Count 239 10^3/uL (140-450) Mean Platelet Volume 8.8 fL (6.9-10.8) Neutrophils (%) (Auto) 76.4 % (37.0-80.0) Lymphocytes (%) (Auto) 14.4 % (10.0-50.0) Monocytes (%) (Auto) 6.9 % (0.0-12.0) Eosinophils (%) (Auto) 1.9 % (0.0-7.0) Basophils (%) (Auto) 0.4 % (0.0-2.0) Neutrophils # (Auto) 8.8 10 ^3/uL (1.6-8.6) Lymphocytes # (Auto) 1.7 10 ^3/uL (0.4-5.4) Monocytes # (Auto) 0.8 10 ^3/uL (0-1.3) Eosinophils # (Auto) 0.2 10 ^3/uL (0-0.8) Basophils # (Auto) 0 10 ^3/uL (0-0.2) Nucleated Red Blood Cells 0.0 % POC Glucose 163 mg/dl (70-106) Other Laboratory Tests 06/03/25 06:09 06/02/25 14:05 Brief Hx & Hospital Course: 69-year-old male with a multiple medical problems including diabetes hypertension chronic kidney disease chronic left foot diabetic in nonhealing wound chronic pain syndrome history of stroke in 2016 with left hemiplegia came in complaining of more weakness in the left side of the body. CT head showed acute ischemic stroke with a right parietal infarct neurology consult by Dr. Sheridan. Patient was placed on aspirin received physical therapy pain management with Dilaudid. Feels better and wants to go home discharged home. 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 Sheridan Operations or Procedures CT head Condition at Discharge: Fair Final Diagnosis/Problems List Acute ischemic stroke with right parietal infarct neurology consult by Dr. Sheridan appreciated Acute left hemiparesis History of stroke 2016 with left hemiplegia Hypertension Uncontrolled Diabetes mellitus Chronic kidney disease Electrolyte imbalance Chronic left foot diabetic wound infection: He follows with Dr. Watts Morbid obesity Chronic pain syndrome: Dilaudid 2 mg IV q.4 hours p.r.n. Discharge Disposition: Home with Health Services Discharge Instruct/Medications Diet: Consistent carbohydrate, Cardiac 2g Na,low cholest Activity: Light activity Follow Up/Referral: Follow up with your primary Dr in one week Keep your appointment with Dr. Watts on 06/20/2025 Resume all previous home meds Medications: Clindamycin Transmitted to [place] pharmacy Scheduled Amlodipine Besylate (Norvasc Tablet), 10 MG PO DAILY, (Reported) Aspirin (Aspir-Low), 81 MG PO DAILY, (Reported) Atorvastatin Calcium (Atorvastatin Calcium), 1 TAB PO DAILY, (Reported) Cefpodoxime Proxetil (Cefpodoxime Proxetil), 1 TAB PO DAILY Clindamycin Hcl (Clindamycin Hcl), 1 CAP PO TID Glipizide (Glipizide), 10 MG PO BID, (Reported) Hydrochlorothiazide (Hydrochlorothiazide), 25 MG PO DAILY Insulin Detemir (Levemir), 20 UNITS SC BID Lisinopril (Lisinopril), 40 MG PO DAILY, (Reported) Metformin Hydrochloride (Metformin Hcl), 500 MG PO BID, (Reported) Polyethylene Glycol 3350 (Miralax), 17 GM PO BID Pregabalin (Lyrica), 1 CAP PO TID, (Reported) Pregabalin (Pregabalin), 1 CAP PO TID, (Reported) Sitagliptin Phosphate (Januvia), 100 MG PO DAILY, (Reported) Triazolam (Halcion), 2 TAB PO QPM, (Reported) Scheduled PRN Oxycodone W/ Acetaminophen (Percocet 5/325MG), 1 TAB PO Q6HPRN PRN for MODERATE PAIN (4-6 PAIN SCALE), (Reported) 39 (Time taken for discharge summary 39 minutes) Discharge Statement: "Patient was advised to return to the ER or call 911 if any headaches, dizziness, shortness of breath, chest pain, abdominal pain, bleeding, fevers, or worsening of medical condition. Patient was counseled about treatment plan, medications, possible side effects, patientverbalized understanding. All questions were answered to the best of my ability. This discharge took greater then 30 minutes in planning, reviewing documentation, counseling the patient, and discussing with other team members." ASSESSMENT ASSESSMENT Assessment Acute ischemic stroke with right parietal infarct neurology consult by Dr. Sheridan appreciated Acute left hemiparesis History of stroke 2016 with left hemiplegia Hypertension Uncontrolled Diabetes mellitus Chronic kidney disease Electrolyte imbalance Chronic left foot diabetic wound infection: He follows with Dr. Watts Morbid obesity Chronic pain syndrome: Dilaudid 2 mg IV q.4 hours p.r.n. Date of Service: Jun 05, 2025 Billing Provider: ROWENA MEREDITH MD Common Visit Codes: [id number]/OBS DISCH DAY >30min ROWENA MEREDITH MD Jun 05, 2025 09:34
[2025-06-05 11:25] VITALS: BP 116/83; TEMP 36.7
[2025-06-05 13:00] VITALS: BP 135/81; PULSE 68; RESP 18; TEMP 98.5; O2SAT 96
[2025-06-05 13:51] VITALS: BP 110/62; PULSE 65; RESP 16
== END 2025-06-05 15:00 | disposition home health service (06) | DRG 64 ==
LOC: ER 13:44 → OVERFLOW 15:05 → CENTRAL 16:00
PROVIDERS: ADMIT Nurse Practitioner; ATTEND Nurse Practitioner
DX: I63.9 Cerebral infarction, unspecified (principal); J96.01 Acute respiratory failure with hypoxia; G81.94 Hemiplegia, unspecified affecting left nondominant side; Z68.41 Body mass index [BMI] 40.0-44.9, adult; E11.40 Type 2 diabetes mellitus with diabetic neuropathy, unspecified; G47.30 Sleep apnea, unspecified; E11.65 Type 2 diabetes mellitus with hyperglycemia; E66.01 Morbid (severe) obesity due to excess calories; N18.9 Chronic kidney disease, unspecified; E11.22 Type 2 diabetes mellitus with diabetic chronic kidney disease; E03.9 Hypothyroidism, unspecified; G89.4 Chronic pain syndrome; I12.9 Hypertensive chronic kidney disease with stage 1 through stage 4 chronic kidney disease, or unspecified chronic kidney disease; E78.5 Hyperlipidemia, unspecified; K21.9 Gastro-esophageal reflux disease without esophagitis; Z82.49 Family history of ischemic heart disease and other diseases of the circulatory system; Z88.5 Allergy status to narcotic agent; Z83.3 Family history of diabetes mellitus; Z79.899 Other long term (current) drug therapy; Z82.0 Family history of epilepsy and other diseases of the nervous system; Z80.0 Family history of malignant neoplasm of digestive organs; Z89.412 Acquired absence of left great toe; Z79.84 Long term (current) use of oral hypoglycemic drugs; Z79.82 Long term (current) use of aspirin; Z87.442 Personal history of urinary calculi
CPT/HCPCS: 36415; 80048; 82962; 84484; 85025; 87077; 87186; 87205; 93005; 93306; 93886; 96374; 97110; 97116; 97163; 97530; 99291; G0378; J1885

== ENCOUNTER 2025-06-23 15:33 | Outpatient (CLI) | payer MEDICARE, BC ==
[~2025-06-23 15:33] MED LIST changes: +CLIN1CAP70 PO
[2025-06-23 15:59] LABS: Hematocrit 41.4 % (41.0-53.0); Hemoglobin 13.9 g/dL (13.5-17.5); Mean Corpuscular Hemoglobin 27.5 pg (28.0-32.0); Mean Corpuscular Volume 82.0 fL (80.0-100.0); Nucleated Red Blood Cells % 0.0 %
[2025-06-23 16:23] LABS: Alanine Aminotransferase 38 U/L (7-40); Anion Gap 7 (5-15); BUN/Creatinine Ratio 25.5 (10.0-20.0); Carbon Dioxide 30 mmol/L (20-31); Chloride 102 mmol/L (98-107); Cholesterol 107 mg/dL (< 200); Sodium 139 mmol/L (136-145)
[2025-06-23 16:24] LABS: Albumin 5.0 g/dL (3.2-4.8); Alkaline Phosphatase 128 U/L (46-116); Bilirubin, Total 0.7 mg/dL (0.2-1.0); Blood Urea Nitrogen 40 mg/dL (9-23); Calcium 10.5 mg/dL (8.7-10.4); Glucose 175 mg/dL (74-106); HDL Cholesterol 29 mg/dL (40-59); Potassium 3.2 mmol/L (3.5-5.1); Total Protein 8.9 g/dL (5.7-8.2); Triglycerides 189 mg/dL (< 150)
== END 2025-06-23 17:00 | disposition home or self-care (01) ==
LOC: LAB 15:33
PROVIDERS: ATTEND Nurse Practitioner Family
DX: I10 Essential (primary) hypertension (principal); E11.9 Type 2 diabetes mellitus without complications; Z00.01 Encounter for general adult medical examination with abnormal findings
CPT/HCPCS: 36415; 80053; 80061; 82043; 82570; 83036; 84443; 85025

== ENCOUNTER → 2025-07-04 | Outpatient (CLI) | payer MEDICARE, BC ==
[2025-07-04 14:41] LABS: Hematocrit 39.8 % (41.0-53.0); Hemoglobin 13.3 g/dL (13.5-17.5); Mean Corpuscular Hemoglobin 27.5 pg (28.0-32.0); Mean Corpuscular Volume 81.9 fL (80.0-100.0); Nucleated Red Blood Cells % 0.1 %
[2025-07-04 14:48] LABS: Urine Budding Yeast OCCASIONAL /hpf (None Seen); Urine Protein, UAD 3+ (Negative)
[2025-07-04 14:59] LABS: INR 1.06 (0.9-1.15); Partial Thromboplastin Time 32.8 SEC (24.5-34.5); Prothrombin Time 11.2 sec (9.3-11.8)
[2025-07-04 15:33] LABS: Anion Gap 12 (5-15); BUN/Creatinine Ratio 19.4 (10.0-20.0); Bilirubin, Total 1.1 mg/dL (0.2-1.0); Calcium 9.7 mg/dL (8.7-10.4); Carbon Dioxide 27 mmol/L (20-31); Chloride 103 mmol/L (98-107); Sodium 142 mmol/L (136-145)
[2025-07-04 15:35] LABS: Alanine Aminotransferase 77 U/L (7-40); Albumin 4.8 g/dL (3.2-4.8); Alkaline Phosphatase 141 U/L (46-116); Blood Urea Nitrogen 30 mg/dL (9-23); Glucose 116 mg/dL (74-106); Potassium 3.3 mmol/L (3.5-5.1); Total Protein 8.4 g/dL (5.7-8.2)
== END | disposition home or self-care (01) ==
LOC: LAB 14:05 → EDSTATUS 07-08 14:15
PROVIDERS: ATTEND Internal Medicine Gastroenterology
DX: Z01.812 Encounter for preprocedural laboratory examination (principal); D12.6 Benign neoplasm of colon, unspecified; T40.2X5A Adverse effect of other opioids, initial encounter; X58.XXXA Exposure to other specified factors, initial encounter; Y93.89 Activity, other specified; Y92.89 Other specified places as the place of occurrence of the external cause; Y99.8 Other external cause status
CPT/HCPCS: 36415; 80053; 81001; 85025; 85610; 85730

== ENCOUNTER → 2025-07-22 | Outpatient (CLI) | payer MEDICARE, BC | END | disposition home or self-care (01) | LOC: Rad HDHVI 10:36 | PROVIDERS: ATTEND Internal Medicine Cardiovascular Disease | DX: Z01.810 Encounter for preprocedural cardiovascular examination (principal); I07.1 Rheumatic tricuspid insufficiency | CPT/HCPCS: 93306 ==

== ENCOUNTER 2025-07-25 10:28 | Outpatient (CLI) | payer MEDICARE, BC ==
[~2025-07-25] VITALS: Ht 177.8 cm; Wt 131.5 kg
[2025-07-25] MEDS ORDERED: ADENOSINE 90 MG/30 ML INJ IV ONE (11:09)
[2025-07-25] MEDS ORDERED: ADENOSINE 110 MG in GIVE UN-DILUTED 0 ML IV ONE (11:15)
== END 2025-07-25 17:00 | disposition home or self-care (01) ==
LOC: Rad HDHVI 10:28
PROVIDERS: ATTEND Internal Medicine Cardiovascular Disease
DX: Z01.810 Encounter for preprocedural cardiovascular examination (principal); I49.3 Ventricular premature depolarization; I48.91 Unspecified atrial fibrillation; I10 Essential (primary) hypertension; E11.9 Type 2 diabetes mellitus without complications; E78.00 Pure hypercholesterolemia, unspecified; Z82.49 Family history of ischemic heart disease and other diseases of the circulatory system
CPT/HCPCS: 78452; 93017; A9500; J0153